=== PATIENT | male | born 1965 | race Caucasian/White ===

== ENCOUNTER 2019-11-19 09:59 | Outpatient (CLI) | payer BC, SELFPAY | END 2019-11-19 10:00 | disposition home or self-care (01) | LOC: CHSCARD 10:04 | PROVIDERS: PCP Physician Assistant; Visit Provider Physician Assistant | DX: R06.02 Shortness of breath (principal) | CPT/HCPCS: 94060; 94726; 94729 ==

== ENCOUNTER 2019-12-17 08:56 | Emergency (ER) | payer OTHER, BC, SELFPAY ==
--- NOTE | ~2019-12-17 | XR_ITS ---
XR finger 2nd LT min 2V DATE: 12/17/2019 09:14 INDICATION: Smash injury, laceration TECHNIQUE: 4 views COMPARISON: None FINDINGS: There is soft tissue swelling of the distal aspect of the second digit. No recent fracture or dislocation is evident. A triangular up to approximately 1.5 x 1.7 mm corticated ossicle is noted at the anterior base of the distal phalanx, possibly an old ununited anterior cortical avulsion fracture or less likely degenera tive ossicles. This is not likely recent due to the linear corticated margins. 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 There is osteoarthritis at the third metacarpophalangeal joint and to a minimal extent the second met acarpophalangeal joint. 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 IMPRESSION: Distal second digit soft tissue swelling Probable chronic ununited small avulsion fracture at the anterior base of the d istal phalanx
[2019-12-17 09:08] VITALS: BP 168/77; PULSE 79; RESP 18; TEMP 36.5; O2SAT 98
[2019-12-17] MEDS: TETANUS/DIPHTHERIA TOXOIDS ADSORB 0.5 ML VIAL (*BKC) (09:27)
--- NOTE | 2019-12-17 10:30 | ED.UPPEXIN ---
HPI - Extremity Injury (Upper) General Chief Complaint: Extremity Injury, Upper Stated Complaint: finger injury Time Seen by Provider: 12/17/19 09:07 Source: patient Mode of arrival: ambulatory Limitations: no limitations History of Present Illness HPI narrative: Patient presents with chief complaint of injury to the distal aspect of second left digit. Patient states that he got it caught between a trench box and a pipe while working. Patient denies loss of range of motion or sensation to the digit. Patient denies any other areas of injury. Patient states he has not had a tetanus injection within the last 5 years. Related Data Home Medications Medication Instructions Recorded Confirmed budesonide-formoterol [Symbicort] INHALATION 12/17/19 bupropion HCl mg PO 12/17/19 Allergies Allergy/AdvReac Type Severity Reaction Status Date / Time No Known Allergies Allergy Verified 12/17/19 09:06 Review of Systems Review of Systems: Narrative: CONSTITUTIONAL: Denies fever, chills, or sweats. EYES: Denies visual changes, redness, or discharge. ENT: Denies rhinorrhea, congestion, sore throat, or otalgia. CARDIOVASCULAR: Denies chest pain, palpitations, or edema. RESPIRATORY: Denies cough or dyspnea. GASTROINTESTINAL: Denies abdominal pain, nausea, vomiting, or diarrhea. GENITOURINARY: Denies dysuria or hematuria. SKIN: Reports swelling and laceration denies rash or itching. MUSCULOSKELETAL: Denies back pain, joint pain, or myalgia. NEUROLOGIC: Denies headache, numbness, dizziness, or weakness. PSYCHIATRIC: Denies anxiety or depression. [facility] Past Medical History Medical History (Updated 12/17/19 @ 10:41 by Dimitry Byrd PA-C) COPD (chronic obstructive pulmonary disease) Social History Social History (Updated 12/17/19 @ 10:34 by Dimitry Byrd PA-C) Smoking status: Current every day smoker Substance use: never Gender identity (if verbalized by the patient): Male Exam Narrative: Exam Narrative: GENERAL: Well-appearing, well-nourished, and in no acute distress. HEAD: Normocephalic, atraumatic. EYES: PERRLA and EOMI. ENT: Nares clear, no rhinorrhea or epistaxis. Mucous membranes moist. Oropharynx without tonsillar hypertrophy exudate or other lesions. NECK: Supple. No adenopathy or masses. Range of motion intact. No outward signs of injury. CHEST: Clear to auscultation. No respiratory distress. No wheezes rales or rhonchi HEART: Regular rate and rhythm. No murmur heard. Normal peripheral pulses. EXTREMITIES: Injury noted to second left digit. Flexion and extension intact to PIP and DIP of second left digit. See skin. SKIN: Approximately 5.5 cm laceration noted to the distal aspect of left second digit. Significant swelling noted. Bleeding is minimal. No apparent foreign bodies. Nailbed intact. Warm, dry, no rash. NEURO: No focal deficits. Alert and oriented x3. PSYCH: Normal mood and affect. Course Vital Signs Vital signs: Vital Signs Temperature 97.7 F 12/17/19 09:08 Pulse Rate 79 12/17/19 09:08 Respiratory Rate 18 12/17/19 09:08 Blood Pressure 168/77 H 12/17/19 09:08 Pulse Oximetry 98 12/17/19 09:08 Temperature 97.7 F 12/17/19 09:08 Pulse Rate 79 12/17/19 09:08 Respiratory Rate 18 12/17/19 09:08 Blood Pressure 168/77 H 12/17/19 09:08 Pulse Oximetry 98 12/17/19 09:08 Procedures Laceration Laceration 1: Site: hand (Second digit) Side (If applicable): left Size (cm): 5.5 Description: irregular Depth: simple, single layer Local Anesthetic: lidocaine 1% Amount of anesthesia used (mL): 1.5 Pre-repair: irrigated extensively and other (Cleansed with Betadine) ====== Skin Level ====== Skin layer closed with: prolene Size (cm): 5-0 Number of sutures: 7 Technique: simple, interrupted ====== Subcutaneous Layer ====== ====== Muscle Layer ====== ====== Tendon La
== END 2019-12-17 11:17 | disposition home or self-care (01) ==
PROVIDERS: Emergency Provider Emergency Medicine; PCP Physician Assistant
DX: S61.211A Laceration without foreign body of left index finger without damage to nail, initial encounter (principal); J44.9 Chronic obstructive pulmonary disease, unspecified; F17.200 Nicotine dependence, unspecified, uncomplicated; Z23 Encounter for immunization
CPT/HCPCS: 12002; 29130; 73140; 90471; 90714; 99283

== ENCOUNTER 2020-04-06 10:14 | Emergency (ER) | payer BC, SELFPAY ==
--- NOTE | ~2020-04-06 | CT_ITS ---
EXAMINATION: CT brain wo con DATE: 04/06/2020 10:41 INDICATION: Altered speech and left hand numbness. TECHNIQUE: Computed tomography (CT) of the head was performed without intravenous contrast. Sagittal and coronal reconstructions were performed. The mA was adjusted according to patient size. Iterative reconstruction technique was employed. The dose-length product was 605.33 mGy-cm. COMPARISON: None FINDINGS: Moderate sized region of decreased attenuation with loss of bianchi-white matter differentiation in the right parieto-occipital region consistent with cytotoxic edema related to acute infarct. No acute int racranial hemorrhage or abnormal extra axial fluid collection. Ventricles are normal and symmetric. N o mass/mass effect. The orbits, paranasal sinuses and mastoid air cells are normal. IMPRESSION: 1. Moderate size region of cytotoxic edema in the right parieto-occipital region consistent with acut e infarct. Dr. Dc discussed these findings with Dr. Perez at 10:42 AM. Reviewed, dictated and finalized at location A. IMPRESSION: 1. Moderate size region of cytotoxic edema in the right parieto-occipital regio n consistent with acute infarct. Dr. Dc discussed these findings with Dr. Perez at 10:42 AM.
--- NOTE | ~2020-04-06 | XR_ITS ---
EXAMINATION: XR chest 1V portable 04/06/2020 10:48 INDICATION: Altered mental status PROCEDURE: AP portable chest COMPARISON: No prior studies for comparison. FINDINGS: The lungs are clear. The cardiomediastinal silhouette is within normal limits. There are no pleural effusions. There is no pneumothorax suspected. IMPRESSION: 1: NO ACUTE CARDIOPULMONARY DISEASE. Reviewed, dictated and finalized at location A.
[2020-04-06 10:15] VITALS: BP 142/87; PULSE 68; RESP 18; TEMP 36.1; O2SAT 95
--- NOTE | 2020-04-06 10:19 | ED.AMS ---
HPI - Altered Mental Status General Chief Complaint: Altered Mental Status Stated Complaint: confusion Time Seen by Provider: 04/06/20 10:19 Source: patient and other ( co-worker) Mode of arrival: wheelchair Limitations: altered mental status History of Present Illness HPI narrative: 55-year-old man brought into the emergency department today by his coworkers because of confusion and not looking well. His stated that when he got to work this morning he was in his usual jovial self and proceeded with work as usual. Shortly before arrival he walked over to his truck got in an order to rest for movement and when he got out of the truck he was abnormal. Patient states that for the last 2 days he has been having feeling of coworkers around him that worked really there. He also had similar abnormal sensation yesterday at lunch when he could remember which co-workers he went to lunch with.He denies headache nausea, vomiting, recent head injury, or prior similar symptoms. Here in the emergency department the patient looked at his left hand and stated it's like it is not even there. MD complaint: altered mental status Time: 09:40 Timing confirmed by: other (Co-worker) Severity: moderate Associated symptoms: difficulty walking Related Data Home Medications Medication Instructions Recorded Confirmed budesonide-formoterol [Symbicort] INHALATION 12/17/19 bupropion HCl mg PO 12/17/19 Allergies Allergy/AdvReac Type Severity Reaction Status Date / Time No Known Allergies Allergy Verified 12/17/19 09:06 Review of Systems Constitutional: Constitutional: Denies chills and Denies fever(s) Eyes: Eyes: Denies change in vision and Denies photophobia ENT: Denies dysphagia, Denies nasal congestion and Denies sore throat Cardiovascular: Cardiovascular: Denies chest pain and Denies radiating jaw, neck or arm pain Respiratory: Respiratory: Denies no additional respiratory complaints, Denies cough, Denies dyspnea and Denies wheezing Gastrointestinal: Gastrointestinal: Denies vomiting Musculoskeletal: Musculoskeletal: Denies arthralgias and Denies joint swelling Integumentary/Breasts: Skin/Breast: Denies pruritus, Denies erythema and Denies rash Neurologic: Denies vertigo, Reports dizziness and Denies syncope Endocrine: Endocrine: Denies polydipsia and Denies polyuria Hematologic/Lymphatic: Hematologic/Lymphatic: Denies easy bleeding and Denies easy bruising PMFSH Past Medical History Medical History (Updated 04/06/20 @ 11:30 by Chavo Perez MD) COPD (chronic obstructive pulmonary disease) Social History Social History Smoking status: Current every day smoker Alcohol intake: never Substance use: former Other substance usage details: Currently uses suboxone Living arrangements: with family Gender identity (if verbalized by the patient): Male Exam Const: General: healthy appearing, alert and confusion Other: Mild acute distress HENMT: Head: normal to inspection Ears: external ears normal, TM's normal bilaterally and EAC's normal Mouth: Yes moist mucous membranes Throat: posterior oropharynx normal Eyes: Conjunctivae: conjunctivae normal Pupils: Equal, round and reactive pupils present EOM: EOMs intact bilaterally Neck: Neck: normal visual inspection Resp: Effort & Inspection: not labored Auscultation: clear to auscultation bilaterally, no rales, no rhonchi and no wheezes Cardio: Rate: regular rate Rhythm: regular rhythm GI: Inspection: non-distended GI Palp: Yes Soft to palpation, No Tenderness to palpation present (GI), No Guarding due to palpation present (GI) and No Rigid due to palpation Skin: General skin exam: pallor Other: diaphoretic Neuro: General: moves all extremities, no focal motor deficits and CN's II-XI intact bilaterally Speech: Abnormal speech present slurred (mildly) Other: Knows birthday, not date or day Extr
--- NOTE | 2020-04-06 10:27 | ECG_ITS ---
Measurements Intervals [place] Rate: 68 P: 74 UT: 194 QRS: 85 QRSD: 107 T: 47 QT: 389 QTc: 415 Interpretive Statements SINUS RHYTHM DELAYED PRECORDIAL R/S TRANSITION BORDERLINE ECG Electronically Signed On 04-06-2020 11:11:19 CDT by Axel Fields D.O.
[2020-04-06] MEDS: SODIUM CHLORIDE 0.9% IV 1,000 ML 100 ML IV CONT (10:51)
[2020-04-06 10:55] LABS: Basophils Absolute Auto 0.05 K/mm3 (0.00-0.10); Basophils Percent Auto 0.4 % (0.0-1.0); Eosinophils Absolute Auto 0.13 K/mm3 (0.02-0.50); Eosinophils Percent Auto 1.1 % (1.0-6.0); Hematocrit 43.7 % (40.0-54.0); Hemoglobin 14.5 g/dL (14.0-18.0); Immature Granulocyte Absolute 0.07 K/mm3 (0.00-0.00); Immature Granulocyte Percent A 0.6 % (0.0-0.0); Lymphocytes Absolute Auto 3.03 K/mm3 (1.10-4.50); Lymphocytes Percent Auto 25.4 % (18.0-42.0); Mean Corpuscular HGB Conc 33.2 g/dL (32.0-36.0); Mean Corpuscular Hemoglobin 32.2 pg (27.0-31.0); Mean Corpuscular Volume 96.9 fL (78.0-102.0); Mean Platelet Volume 8.7 fl (8.7-11.0); Monocytes Absolute Auto 0.82 K/mm3 (0.10-0.90); Monocytes Percent Auto 6.9 % (2.0-11.0); Neutrophils Absolute Auto 7.9 K/mm3 (1.7-7.2); Neutrophils Percent Auto 65.6 % (50.0-70.0); Platelet Count Result 267 K/mm3 (150-420); Red Blood Count 4.51 M/mm3 (4.70-6.10); Red Cell Distribution Width 13.9 % (11.6-14.4)
[2020-04-06 10:57] LABS: HCO3 ABG 25.8 mmol/L (23-29); Oxygen Content ABG 19.3 %vol (16.0-22.0); Oxygen Saturation ABG 97.8 % (95-97); Oxyhemoglobin 89.8 % (94-100); PCO2 ABG 62.5 mmHg (35-45); PO2 ABG 119.2 mmHg (80-90); Total Hemoglobin 15.2 g/dL; pH ABG 7.23 (7.35-7.45)
[2020-04-06 10:58] LABS: Device NASAL CANNULA; Modified Allen's Test Pass; Site Drawn RIGHT RADIAL
[2020-04-06 10:59] LABS: INR 0.9; Partial Thromboplastin Time 24.8 SEC (22.3-31.6); Prothrombin Time 9.8 Seconds (9.64-11.0)
[2020-04-06 11:00] VITALS: BP 182/104
--- NOTE | 2020-04-06 11:00 | PC.NURSE ---
PT REPORTS T[facility] CONCERN[facility] STAT TRANSFER
[2020-04-06 11:02] LABS: D Dimer 0.48 mg/L (0.19-0.50)
[2020-04-06 11:17] LABS: Acetaminophen 0 ug/mL (10-30); Alanine Aminotransferase 20 U/L (16-63); Albumin Level 3.9 g/dL (3.4-5.0); Alkaline Phosphatase 69 U/L (46-116); Ammonia 26 umol/L (11-32); Aspartate Amino Transferase 19 U/L (15-37); Bilirubin,Total 0.2 mg/dL (0.00-1.00); Blood Urea Nitrogen 15 mg/dL (7-18); Calcium 9.3 mg/dL (8.5-10.1); Carbon Dioxide 32 mmol/L (21-32); Chloride 97 mmol/L (98-108); Creatine Kinase 106 U/L (39-308); Estimated CRCL calculation 77 ml/min; Estimated Glomerular Filt Rate > 60; Ethanol < 3 mg/dL (0-6); Glucose 122 mg/dL (70-99); Lactic Acid Reflex 1.2 mmol/L (0.4-2.0); Osmolality Calculated 279 mOsm/kg (285-295); Salicylate 4.4 mg/dL (2.8-20.0); Sodium 134 mmol/L (136-145); Total Protein 7.8 g/dL (6.4-8.2); Troponin I < 0.02 ng/mL (0.00-0.056)
[2020-04-06] MEDS: LABETALOL HCL INJ 100 MG/20 ML VIAL (11:23)
--- NOTE | 2020-04-06 11:23 | PC.NURSE ---
LABETOLOL 10 MG GIVEN VORB IVP RIGHT HAND
[2020-04-06 11:30] VITALS: BP 182/96; PULSE 98; O2SAT 100
[2020-04-07 00:13] LABS: Glucose Point of Care 109 (65-105)
== END 2020-04-06 11:30 | disposition short-term general hospital (02) ==
PROVIDERS: Emergency Provider Emergency Medicine; PCP Physician Assistant
DX: I63.9 Cerebral infarction, unspecified (principal); E87.2 Acidosis
CPT/HCPCS: 36415; 36600; 70450; 71045; 80053; 80307; 82140; 82550; 82805; 83605; 84443; 84484; 85025; 85380; 85610; 85730; 87040; 93005; 96361; 96374; 99285; J7030

== ENCOUNTER 2020-05-19 08:49 | Outpatient (RCR) | payer BC, SELFPAY ==
--- NOTE | 2020-05-19 09:47 | OTOPEVAL ---
Thank you for referring Shaquille Perez to [facility].? The patient is scheduled to be seen for therapy? ____x/week for ___ weeks. Please review, sign, date and return this plan of care PARTH. I agree with and certify that the following plan of care is medically necessary. Referring Physician Date Admitting Provider: Attending Provider: PHYSICIAN NOT ON STAFF Referring Provider: *OT Outpatient Evaluation Start: 05/19/20 09:10 Freq: Status: Active Protocol: Document 05/19/20 09:10 [facility] (Rec: 05/19/20 09:46 [facility] [place] [id number] Therapy Assessment Status Assessment Status Assessment Status Evaluation Outpatient Past Medical History Respiratory History Hx Chronic Obstructive Pulmonary Disease Yes (COPD) Psychosocial History Hx Anxiety Yes Evaluation Information Problem Diagnosis CVA Onset 04/06/20 Subjective Information Patient had a stroke on 04/06/20 Query Text:As Reported By Patient/ where he spent ~1 week in ICU [facility] for a couple days and then returned home. He has been home for ~1 month. He reports things have been getting better. Patient reports some concerns with his balance. Patient also reports that he has lost 30 lbs and was having a difficult with eating but seems to be doing better. Patient reports independence with all self care tasks as well as IADLS. Patient expresses some emotional concerns as well. Patient's significant other is present for evaluation. 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
== END 2020-05-19 15:14 | disposition home or self-care (01) ==
LOC: CHSOT 08:49
PROVIDERS: PCP Physician Assistant
DX: Z86.73 Personal history of transient ischemic attack (TIA), and cerebral infarction without residual deficits (principal); R53.83 Other fatigue
CPT/HCPCS: 97165

== ENCOUNTER 2020-05-25 15:53 | Outpatient (RCR) | payer BC, SELFPAY ==
--- NOTE | 2021-03-10 08:19 | PTOPEVAL ---
Thank you for referring Shaquille Perez to [facility] [place]Note 2[place]? The patient is scheduled to be seen for therapy? ____x/week for ___ weeks. Please review, sign, date and return this plan of care PARTH. I agree with and certify that the following plan of care is medically necessary. Referring Physician Date Admitting Provider: Attending Provider: Purnima Valle, SHUN Referring Provider: *PT Outpatient Evaluation Start: 05/25/20 16:06 Freq: Status: Discharge Protocol: Document 05/25/20 16:05 [facility] (Rec: 05/25/20 16:50 [facility] [id number]) Therapy Assessment Status Assessment Status Assessment Status Evaluation Outpatient Past Medical History Respiratory History Hx Chronic Obstructive Pulmonary Disease Yes (COPD) Psychosocial History Hx Anxiety Yes Evaluation Information Problem Diagnosis s/p CVA Onset 04/06/20 Subjective Information patient reports he had a Query Text:As Reported By Patient/ stroke on 04/06/20. he reports Family he was initially sent to [facility] for rehab, but upon examination, he was reffered to PT due to greater deficits with balance and standing activities. 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 he reports he is not driving yet. he reports he notices the greatest deficits with his mental portion of his rehab. he reports no falls, no ad, independent with ADL's at home . Prior Level of Function Comments Additional Prior Level of Function independent with ADL's, Comments driving, work, and rec activities. Pain Assessment Timing of Pain Assessment Timing of Pain Assessment Assessment Self Report Self Report Pain Level 0 Pain Score Pain Score 0: Self Report Lower Extremity Range of Motion General Lower Extremity Range of Motion Gross Lower Extremity Range of Motion 5/5 bilateral LE strength Comments Balance Assessment Tinetti Balance Assessment Sitting Balance Steady, safe Ability to Arise Able, w/o using arms Attempts to Arise Arises on 1st attempt Immediate Standing Balance Steady w/o support Standing Balance Narrow stance w/o support Nudged Response Steady Standing with Eyes Closed
== END 2020-05-25 16:00 | disposition home or self-care (01) ==
LOC: CHSPT 15:53
PROVIDERS: PCP Physician Assistant; Visit Provider Physician Assistant
DX: R53.1 Weakness (principal); I63.9 Cerebral infarction, unspecified
CPT/HCPCS: 97161; 97530

== ENCOUNTER 2025-05-11 16:44 | Emergency (ER) | payer MEDICARE, SELFPAY ==
[2025-05-11] VITALS (42 sets, daily range): BP systolic 89–129; BP diastolic 39–91; PULSE 85–114; RESP 12–30; TEMP 36.8–37.3; O2SAT 82–98
--- NOTE | ~2025-05-11 | XR_ITS ---
CHEST RADIOGRAPH CLINICAL HISTORY: SHORTNESS OF BREATH . COMPARISON: 04/06/2020 TECHNIQUE: Single portable view of the chest. FINDINGS The left upper lateral lung is partially obscured due to pacemaker generator. Wires project over the right atrium and right ventricle. The remainder of the cardiomediastinal silhouette is otherwise unremarkable. Increased interstitial markings are identified bilaterally, findings suggesting mild pulmonary vascul ar congestion. The remainder of the lungs are otherwise clear. IMPRESSION: Mild pulmonary vascular congestion, without focal infiltrate or effusion. Reviewed, dictated and finalized at location A.
--- NOTE | 2025-05-11 16:47 | ED_ITS ---
HPI - Abdominal Pain General Chief Complaint: Weakness Stated Complaint: blurred vision & abdominal pain Time Seen by Provider: 05/11/25 16:46 Source: patient and EMS Mode of arrival: EMS Limitations: no limitations History of Present Illness HPI narrative: 60 YEARS OLD WHITE MALE CAME TO THE ED BY AMBULANCE FROM HOME COMPLAINING OF GENERALLY WEAK, POOR P.O. INTAKE BECAUSE HAVING NO APPETITE FOR THE LAST 2-3 WEEKS. PATIENT DENIES ANY FEVER, CHILLS, NAUSEA, VOMITING, ABDOMINAL PAIN, CHEST PAIN OR BACK PAIN. PATIENT REPORTS SHORTNESS OF BREATH ON EXERTION FOR A WHILE. PATIENT IS NOT TAKING HIS MEDICATION FOR THE LAST FEW DAYS. HISTORY HYPERTENSION, HYPERLIPIDEMIA, COPD, CVA WITHOUT RESIDUAL COMPLICATION, PACEMAKER, CHRONIC COUGH BECAUSE OF SMOKING, CHRONIC SWELLING OF THE LOWER EXTREMITY FOR YEARS WITHOUT SPECIFIC DIAGNOSIS. PATIENT MAIN COMPLAINT AT THIS TIME IS WORRY ABOUT DYING. Related Data Home Medications ?Medication ?Instructions ?Recorded ?Confirmed ?Last Taken ?Type budesonide-formoterol HFA 80 1 puff inhalation DAILY 12/17/19 04/06/20 Unknown History mcg-4.5 mcg/actuation aerosol inhaler (Symbicort) bupropion HCl 150 mg 24 hr tablet, 150 mg PO DAILY 12/17/19 04/06/20 Unknown History extended release Allergies Allergy/AdvReac Type Severity Reaction Status Date / Time No Known Allergies Allergy Verified 05/11/25 16:52 Review of Systems 2 Review of Systems: All systems reviewed & are unremarkable except as noted in HPI and below PMFSH Past Medical History Medical History COPD (chronic obstructive pulmonary disease) Social History Social History Smoking status: Current every day smoker Alcohol intake: never Substance use: former Other substance usage details: Currently uses suboxone Living arrangements: with family Gender identity (if verbalized by the patient): Male Exam 2 Narrative: GENERAL APPEARANCE: WELL-DEVELOPED, WELL-NOURISHED SKIN: PALE, GRAYISH COLORATION, 2+ EDEMA LOWER EXTREMITY BILATERALLY HEAD: NORMOCEPHALIC, NONTRAUMATIC EYES: CLEAR CONJUNCTIVA ENT: OROPHARYNX NORMAL, EARS NORMAL, NOSE NORMAL NECK: SUPPLE, NONTENDER CHEST AND RESPIRATORY: AIRWAY PATENT, NO RESPIRATORY DISTRESS, NO ACCESSORY MUSCLE USE HEART: REGULAR RATE/RHYTHM ABDOMEN: SOFT, NONTENDER, NO ORGANOMEGALY, QUIET BOWEL SOUNDS VASCULAR: NORMAL PERIPHERAL PULSES, NORMAL CAPILLARY REFILL. MUSCULOSKELETAL: NORMAL RANGE OF MOTION, NONTENDER BACK NEUROLOGIC: ALERT AND ORIENTED ?3, LEAD BURNER HELPER IS NORMAL TESTED, NO GROSS MOTOR DEFICIT Course Consultations Consultation #1: DR BARCENAS, RN WOUND CARE AT [facility] WHO RECOMMENDS TO TRANSFERRED THE PATIENT TO [facility] BECAUSE OF THE LACK OF ONCOLOGY AT HIS FACILITY Date: 05/11/25 Time: 18:58 Consultation #2: DR MOSER, ONCOLOGIST AT [facility] WHO ACCEPTED PATIENT TRANSFER RECOMMEND TO HOLD OFF BLOOD TRANSFUSION AT THIS TIME. Date: 05/11/25 Vital Signs Vital signs: Vital Signs Temperature 37.3 C 05/11/25 16:44 Pulse Rate 114 H 05/11/25 16:44 Respiratory Rate 18 05/11/25 16:44 Blood Pressure 129/74 05/11/25 16:44 Pulse Oximetry 90 05/11/25 16:44 Oxygen Delivery Room Air 05/11/25 16:44 Temperature 36.8 C 05/11/25 17:45 Pulse Rate 91 05/11/25 19:42 Respiratory Rate 16 05/11/25 19:42 Blood Pressure 108/62 05/11/25 19:42 Pulse Oximetry 97 05/11/25 19:42 Oxygen Delivery Nasal Cannula 05/11/25 18:01 Oxygen Flow Rate 4 05/11/25 19:42 MDM - Abdominal Pain MDM Narrative Medical decision making narrative: PATIENT CAME WITH GENERAL WEAKNESS AND POOR APPETITE VITAL SIGNS SHOWING HEART RATE OF 102, OXYGENATION ON ROOM AIR 82% OTHERWISE WITHIN NORMAL LIMIT PHYSICAL EXAMINATION SHOWING SEVERELY ILL PATIENT, PALE, GRAYISH SKIN, 2+ EDEMA LOWER EXTREMITY BILATERALLY, INTERMITTENT COUGHING WHICH IS CHRONIC DIFFERENTIAL DIAGNOSIS INCLUDE DEHYDRATION, ELECTROLYTE IMBALANCE, CONGESTIVE HEART FAILURE, PNEUMONIA, ANEMIA, URINARY TRACT INFECTION BLOOD WORKUP TODAY INCLUDES CBC, CMP, TROPONIN, PRO BNP, LIPASE AND COAGS SHOWED WBC 368.6, RBCS 1.35, HEMOGLOBIN 4.7, HEMATOCRIT 14.7, MCV 108.9, PLATELET COUNT 105, PT 15.8, SODIUM 133, POTASSIUM 3.0, TOTAL BILIRUBIN 1.9, AST 218, ALKALINE PHOSPHATASE 138 ABG ON ROOM AIR SHOWING PH 7.55, PO2 31.4, O2 SATURATION 69.3 CHEST X-RAY SHOWED MILD PULMONARY VASCULAR CONGESTION WITHOUT FOCAL INFILTRATE OR EFFUSION EKG ON ARRIVAL SHOWED SINUS TACHYCARDIA AT 107 BEATS PER MINUTE, ST T-WAVE ABNORMALITY, NO PREVIOUS EKG FOR COMPARISON DIAGNOSIS ACUTE HYPOXIC RESPIRATORY FAILURE, ACUTE LEUKEMIA, THROMBOCYTOPENIA, ANEMIA TRANSFERRED TO [facility] Differential Diagnosis Differential diagnosis: Likely other ( ABOVE) Medical Records Attestation: I reviewed the patient's medical records. Lab Data Attestation: I reviewed the patient's lab results. 05/11/25 17:21 05/11/25 17:21 Labs: Lab Results 05/11/25 05/11/25 05/11/25 Range/Units 17:10 17:12 17:21 WBC 368.6 H* (4.8-10.8) K/mm3 RBC 1.35 L (4.70-6.10) M/mm3 Hgb 4.7 L* (14.0-18.0) g/dL Hct 14.7 L* (40.0-54.0) % MCV 108.9 H (78.0-102.0) fL MCH 34.8 H (27.0-31.0) pg MCHC 32.0 (32-36) g/dL RDW 21.7 H (11.6-14.4) % Plt Count 105 L (150-420) K/mm3 MPV 12.2 H (8.7-11.0) fl Immature Gran % (Auto) Not Reportable Neut % (Auto) Not Reportable Lymph % (Auto) Not Reportable [place] % (Auto) Not Reportable Eos % (Auto) Not Reportable Baso % (Auto) Not Reportable Lymph # (Auto) Not Reportable [place] # (Auto) Not Reportable Eos # (Auto) Not Reportable Baso # (Auto) Not Reportable Abs Immat Gran (auto) Not Reportable Absolute Neuts (auto) Not Reportable Absolute Nucleated RBC Not Reportable Total Counted 100 Neutrophils % (Manual) 6 L (46-73) % Band Neutrophils % 0 (0-6) % Lymphocytes % (Manual) 8 L (18-44) % Monocytes % (Manual) 84 H (3-9) % Basophils % (Manual) 2 H (0-1) % Nucleated RBC % Not Reportable Abs Neuts (Manual) 22.11 H (1.3-6.7) K/mm3 Abs Lymphs (Manual) 29.48 H (1.1-4.5) K/mm3 Abs Monocytes (Manual) 309.62 H (0.1-0.90) K/mm3 Abs Basophils (Manual) 7.37 H (0-0.1) K/mm3 Nucleated RBCs 7 % Platelet Estimate Slightly decreased (Adequate) Hypochromasia 3+ Anisocytosis 2+ Schistocytes None seen PT 15.8 H (9.50-12.1) Seconds INR 1.5 APTT 27.5 (23.9-30.70) Sec Sodium 133 L (137-145) mmol/L Potassium 3.0 L (3.4-5.0) mmol/L Chloride 97 L (98-107) mmol/L Carbon Dioxide 27 (22-30) mmol/L Anion Gap 9 (4-12) mmol/L BUN 13 (9-20) mg/dL Creatinine 1.06 (0.7-1.3) mg/dL Estim Creat Clear Calc Not Reportable Estimated GFR > 60 (59 - ) Glucose 157 H (65-110) mg/dL Calculated Osmolality 279 L (285-295) mOsm/kg Uric Acid 12.1 H (3.5-8.5) mg/dL Calcium 9.2 (8.4-10.2) mg/dL Phosphorus 1.9 L (2.5-4.5) mg/dL Total Bilirubin 1.9 H (0.2-1.3) mg/dL AST 218 H (17-59) U/L ALT 28 (6-50) U/L Alkaline Phosphatase 138 H (38-126) U/L Lactate Dehydrogenase Pending Troponin I 0.021 (0.000-0.034) ng/mL NT-Pro-B Natriuret Pep Pending Total Protein 6.6 (6.3-8.2) g/dL Albumin 3.8 (3.5-5.1) g/dL Lipase 49 (23-300) U/L Influenza A (RT-PCR) Influenza B (RT-PCR) RSV (RT-PCR) SARS-CoV-2 RNA (RT-PCR) Blood Type B Positive Antibody Screen Negative Crossmatch See Detail 05/11/25 Range/Units 20:38 WBC (4.8-10.8) K/mm3 RBC (4.70-6.10) M/mm3 Hgb (14.0-18.0) g/dL Hct (40.0-54.0) % MCV (78.0-102.0) fL MCH (27.0-31.0) pg MCHC (32-36) g/dL RDW (11.6-14.4) % Plt Count (150-420) K/mm3 MPV (8.7-11.0) fl Immature Gran % (Auto) Neut % (Auto) Lymph % (Auto) [place] % (Auto) Eos % (Auto) Baso % (Auto) Lymph # (Auto) [place] # (Auto) Eos # (Auto) Baso # (Auto) Abs Immat Gran (auto) Absolute Neuts (auto) Absolute Nucleated RBC Total Counted Neutrophils % (Manual) (46-73) % Band Neutrophils % (0-6) % Lymphocytes % (Manual) (18-44) % Monocytes % (Manual) (3-9) % Basophils % (Manual) (0-1) % Nucleated RBC % Abs Neuts (Manual) (1.3-6.7) K/mm3 Abs Lymphs (Manual) (1.1-4.5) K/mm3 Abs Monocytes (Manual) (0.1-0.90) K/mm3 Abs Basophils (Manual) (0-0.1) K/mm3 Nucleated RBCs % Platelet Estimate (Adequate) Hypochromasia Anisocytosis Schistocytes PT (9.50-12.1) Seconds INR APTT (23.9-30.70) Sec Sodium (137-145) mmol/L Potassium (3.4-5.0) mmol/L Chloride (98-107) mmol/L Carbon Dioxide (22-30) mmol/L Anion Gap (4-12) mmol/L BUN (9-20) mg/dL Creatinine (0.7-1.3) mg/dL Estim Creat Clear Calc Estimated GFR (59 - ) Glucose (65-110) mg/dL Calculated Osmolality (285-295) mOsm/kg Uric Acid (3.5-8.5) mg/dL Calcium (8.4-10.2) mg/dL Phosphorus (2.5-4.5) mg/dL Total Bilirubin (0.2-1.3) mg/dL AST (17-59) U/L ALT (6-50) U/L Alkaline Phosphatase (38-126) U/L Lactate Dehydrogenase Troponin I (0.000-0.034) ng/mL NT-Pro-B Natriuret Pep Total Protein (6.3-8.2) g/dL Albumin (3.5-5.1) g/dL Lipase (23-300) U/L Influenza A (RT-PCR) Pending Influenza B (RT-PCR) Pending RSV (RT-PCR) Pending SARS-CoV-2 RNA (RT-PCR) Pending Blood Type Antibody Screen Crossmatch ABG Data ABG results: 05/11/25 17:12 Puncture Site Left radial ABG pH 7.55 H ABG pCO2 29.5 L ABG pO2 31.4 L* ABG HCO3 25.3 ABG O2 Saturation 69.3 L ABG Base Excess 2.6 H Oxyhemoglobin 68.0 L O2 Delivery Device Room air O2 Liters/Min 0.0 Imaging Data Radiologist's impression: ITS Impressions Chest X-Ray 05/11/25 18:12 IMPRESSION: Mild pulmonary vascular congestion, without focal infiltrate or effusion. ECG Data EKG #1: Attestation: I personally reviewed and interpreted this ECG as follows: ECG completion date: 05/11/25 Interpretation: SINUS TACHYCARDIA AT 107 BEATS PER MINUTE, NONSPECIFIC ST T-WAVE ABNORMALITY, NO OLD EKG AVAILABLE FOR COMPARISON Critical Care Time Critical Care Time Critical Care Time: Yes Total Critical Care Time: 30 Discharge Plan Discharge Clinical Impression: Acute hypoxic respiratory failure, Leukemia, acute, Thrombocytopenia, Anemia Patient Disposition: Acute Care Hospital Condition: Critical Patient Language: Yakut Prescriptions: No Action budesonide-formoterol [Symbicort] 80-4.5 mcg/actuation HFA aerosol inhaler 1 puff INHALATION DAILY bupropion HCl 150 mg tablet extended release 24 hr 150 mg PO DAILY naproxen 500 mg tablet 500 mg PO BID PRN (Reason: pain) Qty: 20 0RF Follow-up/Referrals: UNKNOWN,DOCTOR [Non-Staff] -
--- OUTSIDE RECORDS SUMMARY | 2025-05-11 16:47 | XMS_ITS | Clinical Summary ---
Author Organization [facility] Address [address] [place] [address] Care Team Providers Care Dentistry Teacher Name Role Phone Purnima Valle Primary Care Provider [phone] Teodora Dukes MD Unavailable Mark Yoon MD Unavailable [phone] Paige Marr PA-C Unavailable [phone] Allergies Active Allergy Reactions Criticality Noted Date Comments Losartan Other (see comment) 05/04/2025 Pt states that Losartan makes him feel very ill. Medications budesonide-form oterol 160-4.5 MCG/ACT inhaler Inhale 2 puffs into the lungs 2 (two) times daily. Active albuterol sulfate HFA 108 (90 Base) MCG/ACT inhaler Inhale 2 puffs into the lungs every 6 (six) hours as needed for Wheezing. Active buprenorphine-n aloxone 8-[address] 1 Film under the tongue 3 (three) times daily. Active atorvastatin (LIPITOR) 40 MG tablet Take 1 tablet (40 mg total) by mouth nightly at bedtime. 3 Active busPIRone (BUSPAR) 10 MG tablet Take 1 tablet (10 mg total) by mouth daily. 3 Active clopidogrel (PLAVIX) 75 MG tablet Take 1 tablet (75 mg total) by mouth daily. 3 Active FLUoxetine (PROZAC) 40 MG capsule Take 1 capsule (40 mg total) by mouth daily. 3 Active traZODone (DESYREL) 100 MG tablet Take 1 tablet (100 mg total) by mouth nightly at bedtime. 3 Active ADVAIR HFA 230-21 MCG/ACT inhaler Inhale 2 puffs into the lungs 2 (two) times daily. 3 Active naloxone (NARCAN) 4 MG/0.1ML nasal spray 1 spray by Nasal route as needed. 3 Active ARIPiprazole (ABILIFY) 5 MG tablet Take 1 tablet (5 mg total) by mouth daily. Active tamsulosin (FLOMAX) 0.4 MG Cap Take 1 capsule (0.4 mg total) by mouth daily. Active amLODIPine (NORVASC) 10 MG tablet Take 1 tablet (10 mg total) by mouth daily. Active losartan (COZAAR) 50 MG tablet Take 1 tablet (50 mg total) by mouth daily. 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 Assessment & Plan (05/30/2023 9:09 AM CDT): LEFT 3rd finger excised on 05-09-2023 Chronotropic incompetence with sinus node dysfun ction 05/03/2021 Symptomatic bradycardia 05/03/2021 Seizure disorder ([facility]) 09/27/2020 History of embolic stroke 05/03/2020 Hyperlipidemia LDL goal <70 05/03/2020 Fatigue, unspecified type 05/03/2020 Acute embolic stroke ([facility]) 0 Resolved Problems Problem Noted Date Diagnosed Date Resolved Date Mass of finger of left hand 04/25/2023 05/30/2023 Overview (04/25/2023): Added automatically from request for surgery [id number] Encounters Date Type Department Care Team Description 03/29/2025 Telephone [facility] [address] [place] [address] Teodora Dukes MD Medication 03/18/2025 Telephone [facility] [address] [place] [address] Mark Yoon MD Information 03/17/2025 8:15 AM CDT Allied Health/Nurse Visit [facility] [place] [address] [place] [address] Mark Yoon MD In Clinic Device Check 03/17/2025 8:15 AM CDT Office Visit [facility] [address] [address] Mark Yoon MD Consult 03/17/2025 8:00 AM CDT - 03/17/2025 11:59 PM CDT Hospital Encounter [facility] the [facility] [place] [address] Mark Yoon MD Discharge Disposition: Home or Self Care (Routine Discharge) 03/17/2025 Travel 03/16/2025 Telephone [facility] [address] [place] [address] Mark Yoon MD Appointment Reminder 03/15/2025 Orders Only [facility] [place] [address] [place] [address] Mark Yoon MD from Last 3 Months Family History Medical History Relation Comments No Known Problems Brother No Known Problems Father No Known Problems Maternal Aunt No Known Problems Maternal Grandfather No Known Problems Maternal Grandmother No Known Problems Maternal Uncle Heart Attack Mother Heart Disease Mother No Known Problems Paternal Aunt No Known Problems Paternal Grandfather No Known Problems Paternal Grandmother No Known Problems Paternal Uncle No Known Problems Sister Relation Status Comments Brother Father Maternal Aunt Maternal Grandfather Maternal Grandmother Maternal Uncle Mother Paternal Aunt Paternal Grandfather Paternal Grandmother Paternal Uncle Sister Social History Tobacco Use Types Packs/Day Years Used Date Smoking Tobacco: Every Day Cigarettes Smokeless Tobacco: Never Tobacco Cessation:Ready to Q uit: Not Asked; Counseling Given: Not Answered Alcohol Use Standard Drinks/Week Comments Not Currently 0 (1 standard drink = 0.6 oz pur e alcohol) Humiliation, Afraid, Rape, and Kick questionnair e Answer Date Recorded Fear of Current or Ex-Partner No Emotionally Abused No 04/06/2020 Physically Abused No 04/06/2020 Sexually Abused No 04/06/2020 Social Connection and Isolat ion Panel [NHANES] Answer Date Recorded Frequency of Communication w ith Friends and Family More than three times a week 04/06/2020 Frequency of Social Gatherin gs with Friends and Family More than three times a week 04/06/2020 Attends Taoism Services Never 04/06 Active Member of Clubs or Organizations No 04/06/2020 Attends Club or Organization Meetings Never 04/06/2020 Marital Status 04/06/2020 AUDIT-C Answer Date Recorded Q1: How often do you have a drink containing alc ohol? Never 09/27/2020 Average Number of Drinks Not on file 020 Q3: How often do you have si x or more drinks on one occasion? Never 09/27/2020 Overall Financial Resource Strain (CARDIA) Answe r Date Recorded Difficulty of Paying Living Expenses Not hard at all 04/06/2020 PHQ-2 Answer Date Recorded PHQ-2 Score - If the patient scores above 3, please move on to questions 3-9 0 09/27/2020 [facility] of Occupat ional Health - Occupational Stress Questionnaire Answer Date Recorded Feeling of Stress Only a little 04/06/2020 Exercise Vital Sign Answer Date Recorde d Days of Exercise per Week 0 days 2019 Minutes of Exercise per Session 0 min 04/06/2020 Hunger Vital Sign Answer Date Recorded Worried About Running Out of Food in the Last Ye ar Never true 04/06/2020 Ran Out of Food in the Last Year Never true 04/06/2020 PRAPARE - Transportation Answer Date Re corded Lack of Transportation (Medical) No 04/06/2020 Lack of Transportation (Non-Medical) No 04/06/2020 Sex and Gender Information Value Date Recorded Sex Assigned at Male 04/06/2020 1:53 PM CDT Legal Sex Male 6:00 PM BLACKING WHEEL TENDER Gender Identity Male 04/06/2020 1:53 PM CDT Sexual Orientation Straight 04/06/2020 1: 53 PM CDT Last Filed Vital Signs Vital Sign Reading Time Taken Comments Blood Pressure 105/55 03/17/2025 8:39 AM CDT Pulse 72 03/17/2025 8:39 AM CDT Temperature 36.7 C (98.1 F) 05/09/2023 9:55 AM CDT Respiratory Rate 12 03/17/2025 8:39 AM CDT Oxygen Saturation 100% 03/17/2025 8:39 AM CDT Inhaled Oxygen Concentration - - Weight 95.3 kg (210 lb) 03/17/2025 8:39 AM CDT Height 180.3 cm (5' 11) 03/17/2025 8:39 AM CDT Body Mass Index 29.29 03/17/2025 8:39 AM CDT Plan of Treatment Upcoming Encounters Date Type Department Care Team (Late st Contact Info) Description 05/25/2025 2:30 AM CDT Allied Health/Nurse Visit [facility] [address] [place] [address] Mark Yoon MD [address] [place] [address] 07/07/2025 10:30 AM CDT Office Visit [facility] [place] [address] [place] [address] Teodora Dukes MD [address] [place] [address] 03/16/2026 9:00 AM CDT Office Visit [facility] [place] [address] [place] [address] Paige Marr PA-C [address] [place] [address] 03/16/2026 9:00 AM CDT Allied Health/Nurse Visit [facility] [place] [address] [place] [address] Mark Yoon MD [address] [place] [address] Health Maintenance Due Date Last Done Comments Colorectal Cancer Screening Colonoscopy (10 Years) 1967 Kidney Health Evaluation 1967 Annual Physical 1970 Diabetes: Retinopathy Eye Exam 1985 Hepatitis C 1985 DTaP, Tdap and Td Vaccines (1 - Tdap) 1986 Hepatitis B Vaccines (1 of 3 - 19+ 3-dose series) 1986 Pneumococcal Vaccine: 50+ Years (1 of 2 - PCV) 1986 Zoster Vaccines (1 of 2) 2017 Hemoglobin A1C 10/07/2020 04/06/2020 COVID-19 Vaccine ( - season) 2024 Lipid Panel 10/07/2024 10/07/2023, 04/07, 04/07/2020, Additional history exists Meningococcal B Vaccine Aged Out No l onger eligible based on patient's age to complete this topic Meningococcal Vaccine Aged Out No alton jonathan eligible based on patient's age to complete this topic RSV Immunizations Under 20 Months Aged Out No longer eligible based on patient's age to complete this topic Medical Devices Implanted Type Area Trimming Assembler Device Identifier Shelf Expiration Date Model / Serial / Lot Medtronic-Linq Ii Implantable Loop Recorder-2019 Implanted:Qty: 1 on 08/08/2020 by Mike Doherty MD Explanted:04/07 by Arpit Dooley MD (Quantity not on file) Implantable Loop Recorder Chest Wall [employer] 12/04/2021 [id number] / [id number] / Medtronic Capsurefix Novus Mri Ra Lead-05/03/2021 Implanted:04/07 by Arpit Dooley MD (Quantity not on file) Lead Implant [employer] CARDIAC RHYTHM AND HEART FAILURE - DIV M 02/13/2023 4076-52 / [id number] / Medtronic Capsurefix Novus Mri Rv Lead-05/03/2021 Implanted:04/07 by Arpit Dooley MD (Quantity not on file) Lead Implant [employer] CORONARY AND STRUCTURAL HEART - DIV MEDT 01/10/2023 4076-58 / [id number] / Medtronic Katie Xt Dr Mri Ppm-05/03/2021 Implanted:04/07 by Arpit Dooley MD (Quantity not on file) Pacemaker [employer] CARDIAC RHYTHM AND HEART FAILURE - DIV M 10/03/2022 [id number] / [id number] / Description:MRI Conditional under following conditions: Static magnetic field of 1.5 T or 3 T, Max spatial gradient field of 2000 Gauss/cm or less, Max slew rate 200 T/m/s or less, 1.5 T Whole body BOB of 2 W/kg or less , Head BOB 3.2 W/kg or less in Normal Operating Mode : 3 T B1+YOEL must be 2.8 mT or less for landmarks below C7, No B1+YOEL restriction on 3T if landmark is at or above C7 Procedures Procedure Name Priority Date/Time Associated Diagnosis Comments ECG 12-LEAD Routine 03/17/2025 8:17 AM CDT History of embolic stroke Chronic heart failure, unspecified heart failure type (CMS/HCC HHS/HCC) LIPID PANEL Routine 10/07/2023 7:06 AM BLACKING WHEEL TENDER Fatigue Hyperlipidemia HEMOGLOBIN, GLYCOSYLATED Routine 04/06/2020 1:30 PM CDT from Last 3 Months or Most Recently Relevant to Health Maintenance Results * ECG 12 lead (HOSPITAL PERFORMED ONLY) (03/17/2025 8:17 AM CDT) 03/17/2025 8:17 AM CDT Narrative [facility] - 03/18/2025 6:02 AM CDT [address] [place] [address] Test Date: 2025-03-17 Pat Name: TAMMY PEREZ Department: 3 Room: Gender: Male Zipper Cutter: : 1965 Requested By: MARK YOON Order Number: [id number] Reading MD: Mark Yoon Measurements Intervals [place] Rate: 70 P: 65 [place]: 191 QRS: 48 QRSD: 98 T: 6 QT: 335 QTc: 361 Interpretive Statements SINUS RHYTHM NONSPECIFIC T-WAVE ABNORMALITY Procedure Note Mark Yoon MD - 03/18/[address] [place] [address] Test Date: 2025-03-17 Pat Name: TAMMY PEREZ Department: 3 Room: Gender: Male Zipper Cutter: : 1965 Requested By: MARK YOON Order Number: [id number] Reading MD: Mark Yoon Measurements Intervals [place] Rate: 70 P: 65 [place]: 191 QRS: 48 QRSD: 98 T: 6 QT: 335 QTc: 361 Interpretive Statements SINUS RHYTHM NONSPECIFIC T-WAVE ABNORMALITY Mark Yoon MD ECG ORDERABLES Final Res ult [facility] * (ABNORMAL) LIPID PANEL (10/07/2023 7:06 AM BLACKING WHEEL TENDER) CHOLESTEROL 143 MG/DL 10/07/2023 11:08 AM [facility] Comment:DESIRABLE: <200 TRIGLYCERIDES 160 MG/DL 10/07/2023 11:08 AM [facility] Comment:150-199 BORDERLINE H IGH HDL 36(L) >39 MG/DL 10/07/2023 11:08 AM BLACKING WHEEL TENDER [facility] LDL-C 75 MG/DL 10/07/2023 11:08 AM BLACKING WHEEL TENDER [facility] Comment:<100 OPTIMAL VLDL CALCULATION 32 MG/DL 10/07/19 11:08 AM [facility] Comment:REFERENCE RANGE NOT ESTABLISHED CHOL/HDL RATIO 4.0 10/07/2023 11:08 AM BLACKING WHEEL TENDER [facility] Comment:REFERENCE RANGE NOT ESTABLISHED LDL/HDL 2.1 10/07/2023 11:08 AM BLACKING WHEEL TENDER [facility] Comment:REFERENCE RANGE NOT ESTABLISHED NON HDL CHOLESTEROL 107 MG/DL 10/07/2023 11:08 AM BLACKING WHEEL TENDER [facility] Comment:REFERENCE RANGE NOT ESTABLISHED 10/07/2023 7:06 AM BLACKING WHEEL TENDER Mj Hughes MD LABORATORY Final Result Performing Organization Address [facility] Co de Phone Number [facility] [address] [place] [address], [place] [phone] [id number] * (ABNORMAL) HEMOGLOBIN, GLYCATED (04/06/2020 1:30 PM CDT) HGB A1C 5.9(H) <5.7 % 04/06/2020 9:46 PM CDT [facility] ESTIMATED AVG GLUCOSE 123(H) 74 - 114 MG/DL 04/06/2020 9:46 PM CDT [facility] 04/06/2020 1:30 PM CDT Marty Davey MD LABORATORY Final Result Performing Organization Address [facility] de Phone Number [facility] [address] [place] [address], [place] [phone] [id number] from Last 3 Months or Most Recently Relevant to Health Maintenance Insurance MEDICARE Advance Directives Documents on File Type Date Recorded Patient Solution Director Expl anation Advance Directives and Living Will 04/06/2020 6:20 AM SURROGATE DECISION MAKER 04/06/2020 * Full Code (Latest Code Status on File) Date Activated Date Inactivated Comments 05/03/2021 5:54 PM 05/04/2021 11:04 AM * Full Code Date Activated Date Inactivated Comments 04/06/2020 1:06 PM 04/11/2020 3:50 PM Care Teams Dentistry Teacher Relationship Specialty Start Date End Date Purnima Valle PA [address] [facility] [place] [address] PCP - General PHYSICIAN YARD RIGGER 04/24/23 Teodora Dukes MD [address] [place] [address] Johnson Cloth Bleaching Supervisor CARDIOVASCULAR DISEASE 12/02/24 Mark Yoon MD [address] [place] [address] Consulting Physician CLINICAL CARDIAC ELECTROPHYSIOLOGY 02/15/25 Paige Marr PA-C [address] [place] [address] Referring Physician PHYSICIAN YARD RIGGER 03/14/25
--- OUTSIDE RECORDS SUMMARY | 2025-05-11 16:48 | XMS_ITS | Encounter Summary ---
Author Organization [facility] Address [address] [place] [address] Care Team Providers Care Mold Filler And Drainer Name Role Phone Paula Chopra NP Primary Care Provider [phone] Mike Doherty MD Unavailable [phone] Shari Ennis NP Unavailable [phone] Purnima Valle Primary Care Provider [phone] Teodora Dukes MD Unavailable Mark Yoon MD Unavailable [phone] Paige Marr PA-C Unavailable + [phone] Encounter Details Date Type Department Care Team (Late st Contact Info) Description 05/04/2021 Hospital Follow-up Call [facility] [address] [place] [address] Chelle Candelaria RN Social History Tobacco Use Types Packs/Day Years Used Date Smoking Tobacco: Every Day Cigarettes Smokeless Tobacco: Never Alcohol Use Standard Drinks/Week Comments Not Currently [...] than three times a week 04/06/2020 Attends Shinto Services Never 04/06 Active Member of Clubs [...] move on to questions 3-9 0 09/27/2020 [facility] [place] of Occupat ional Health - Occupational Stress [...] PM CDT 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 No / Unsure 05/03/2021 2:27 PM CDT documented as of this encounter Functional Status * RETIRED Are you deaf or do you have serious difficulty hearing Answer Date of Assessment Author Status No 05/03/2021 6:03 PM CDT Activ e * RETIRED Are you blind or do you have serious difficulty seeing, even when wearing glasses? Answer Date of Assessment Author Status No 05/03/2021 6:03 PM CDT Activ e * Do you have serious difficulty walking or climbing stairs? Answer Date of Assessment Author Status No 05/03/2021 6:03 PM CDT Michell Powers R N Active * Do you have difficulty dressing or bathing? Answer Date of Assessment Author Status No 05/03/2021 6:03 PM CDT Michell Powers R N Active * Because of a physical, mental, or emotional condition, do you have difficulty doing errands alone such as visiting a doctor's office or shopping? Answer Date of Assessment Author Status No 05/03/2021 6:03 PM CDT Michell Powers R N Active documented as of this encounter Mental Status * Because of a physical, mental, or emotional condition, do you have serious difficulty concentrating, remembering, or making decisions? Answer Entry Date Author Status No 05/03/2021 6:03 PM CDT Michell Powers R N Active documented in this encounter Plan of Treatment Upcoming Encounters Date Type Department Care Team (Late st Contact Info) Description 05/25/2025 2:30 AM CDT Allied Health/Nurse Visit [facility] [address] [place] [address] Mark Yoon MD [address] [place] [address] 07/07/2025 10:30 AM CDT Office Visit [facility] [place] [address] [place] [address] Teodora Dukes MD [address] [place] [address] 03/16/2026 9:00 AM CDT Office Visit [facility] [place] [place] [place] [address] Paige Marr PA-C [address] [place] [address] 03/16/2026 9:00 AM CDT Allied Health/Nurse Visit [facility] [place] [address] Mark Yoon MD [address] [place], [place] [address] documented as of this encounter Visit Diagnoses Not on filedocumented in this encounter Care Teams Mold Filler And Drainer Relationship Specialty Start Date End Date Paula Chopra NP [address] [place] [address] PCP - General Nurse Practitioner Family 04/07/20 3 Purnima Valle PA [address] [place] [address] PCP - General PHYSICIAN HARVESTING CONTRACTOR 04/24/23 Mike Doherty MD [address] [facility] [address] [place] [address] Consulting Physician CARDIOVASCULAR DISEASE 05/09/2102/14 Shari Ennis NP [address] [facility] [address] [place] [address] Nurse Practitioner Nurse Practitioner Family 05/09/2102/04 Teodora Dukes MD [address] [place] [address] [place] Oven Heater CARDIOVASCULAR DISEASE 12/02/24 Mark Yoon MD [address] [place], [place] [address] Consulting Physician CLINICAL CARDIAC ELECTROPHYSIOLOGY 02/15/25 Paige Marr PA-C [address] [place] [address] Referring Physician PHYSICIAN HARVESTING CONTRACTOR 03/14/25 documented as of this encounter
--- OUTSIDE RECORDS SUMMARY | 2025-05-11 16:48 | XMS_ITS | Encounter Summary ---
Author Organization [facility] Address Formerly [facility], [address] [place] [address] Care Team Providers Care Account Executive Software Sales Name Role Phone Paula Chopra NP Primary Care Provider [phone] Mike Doherty MD Unavailable [phone] Shari Ennis NP Unavailable [phone] Purnima Valle Primary Care Provider [phone] Teodora Dukes MD Unavailable Mark Yoon MD Unavailable + [phone] Paige Marr PA-C Unavailable + [phone] Encounter Details Date Type Department Care Team (Late st Contact Info) Description 09/14/2020 90 Day Stroke Follow-up Call 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 Answer Date of Assessment Author Status No 04/06/2020 1:56 PM CDT Activ e * Do you have serious difficulty walking or climbing stairs? Answer Date of Assessment Author Status No 04/06/2020 1:56 PM CDT Donato, Amanda A, R N Active * Do you have difficulty dressing or bathing? Answer Date of Assessment Author Status No 04/06/2020 1:56 PM CDT Donato, Amanda A, R N Active * Because of a physical, mental, or emotional condition, do you have difficulty doing errands alone such as visiting a doctor's office or shopping? Answer Date of Assessment Author Status No 04/06/2020 1:56 PM CDT Donato, Amanda A, R N Active documented as of this encounter Mental Status * Because of a physical, mental, or emotional condition, do you have serious difficulty concentrating, remembering, or making decisions? Answer Entry Date Author Status No 04/06/2020 1:56 PM CDT Amanda Donato R N Active documented in this encounter Plan of Treatment Upcoming Encounters Date Type Department Care Team (Late st Contact Info) Description 05/25/2025 2:30 AM CDT Allied Health/Nurse Visit [facility] [address] [place] [address] Mark Yoon MD [address] [place] [address] 07/07/2025 10:30 AM CDT Office Visit [facility] [place] [address] [place] [address] Teodora Dukes MD [address] [place] [address] 03/16/2026 9:00 AM CDT Office Visit [place] [address] [place] [address] Paige Marr PA-C [address] [place] [address] 03/16/2026 9:00 AM CDT Allied Health/Nurse Visit [place] [address] [place] [address] Mark Yoon MD [address] [place] [address] documented as of this encounter Visit Diagnoses Not on filedocumented in this encounter Additional Health Concerns Infection Onset Date Last Indicated Resolved Time COVID-19 Rule Out 05/03/2021 05/03/2021 05/03/2021 6:21 PM CDT documented as of this encounter Care Teams Account Executive Software Sales Relationship Specialty Start Date End Date Paula Chopra NP [address] [address] PCP - General Nurse Practitioner Family 04/07/20 3 Purnima Valle PA [address] [place] [id number] PCP - General PHYSICIAN 411 DIRECTORY ASSISTANCE OPERATOR 04/24/23 Mike Doherty MD [address] [address] Consulting Physician CARDIOVASCULAR DISEASE 05/09/2102/14 Shari Ennis NP [address] [address] Nurse Practitioner Nurse Practitioner Family 05/09/2102/04 Teodora Dukes MD [address] [place] [address] Magistrate CARDIOVASCULAR DISEASE 12/02/24 Mark Yoon MD [address] [place] [address] Consulting Physician CLINICAL CARDIAC ELECTROPHYSIOLOGY 02/15/25 Paige Marr PA-C [address] [place] [address] Referring Physician PHYSICIAN 411 DIRECTORY ASSISTANCE OPERATOR 03/14/25 documented as of this encounter
--- OUTSIDE RECORDS SUMMARY | 2025-05-11 16:48 | XMS_ITS | Encounter Summary ---
Author Organization [facility] Address [facility] [place] [address] Care Team Providers Care Insurance Agent Name Role Phone Paula Chopra NP Primary Care Provider [phone] Mike Doherty MD Unavailable [phone] Shari Ennis NP Unavailable [phone] Purnima Valle Primary Care Provider [phone] Teodora Dukes MD Unavailable Mark Yoon MD Unavailable [phone] Paige Marr PA-C Unavailable + [phone] Encounter Details Date Type Department Care Team (Late st Contact Info) Description 09/14/2020 90 Day Stroke Follow-up Call [facility] Chick Grader [address] [place] [address] Ailin Silver, RN Social History Tobacco Use [...] than three times a week 04/06/2020 Attends Jew Services Never 04/06 Active Member of Clubs or Organizations No 04/06/2020 Attends Club or Organization Meetings Never 04/06/2020 Marital Status 04/06/2020 Overall Financial Resource Strain (CARDIA) Answe r Date Recorded Difficulty of Paying Living Expenses Not hard at all 04/06/2020 [facility] of Occupat ional Health - Occupational Stress [...] PM CDT 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 Gender Identity Male 04/06/2020 1:53 PM CDT [...] 05/25/2025 2:30 AM CDT Allied Health/Nurse Visit [facility] [address] [place] [address] Mark Yoon MD [address] [place] [address] 07/07/2025 10:30 AM CDT Office Visit [facility] [place] [address] [place] [address] Teodora Dukes MD [address] [place] [address] 03/16/2026 9:00 AM CDT Office Visit [place] [address] [place] [address] Paige Marr PA-C [address] [place] [address] 03/16/2026 9:00 AM CDT Allied Health/Nurse Visit [place] [address] [place] [address] Mark Yoon MD [address] [place] [address] documented as of this encounter Visit Diagnoses Not on filedocumented in this encounter Additional Health Concerns Infection Onset Date Last Indicated Resolved Time COVID-19 Rule Out 05/03/2021 05/03/2021 05/03/2021 6:21 PM CDT documented as of this encounter Care Teams Insurance Agent Relationship Specialty Start Date End Date Paula Chopra NP [address] [address] PCP - General Nurse Practitioner Family 04/07/20 3 Purnima Valle PA [address] [place] [id number] PCP - General PHYSICIAN PHYS ASSISTANT 04/24/23 Mike Doherty MD [address] [address] Consulting Physician CARDIOVASCULAR DISEASE 05/09/2102/14 Shari Ennis NP [address] [address] Nurse Practitioner Nurse Practitioner Family 05/09/2102/04 Teodora Dukes MD [address] [place] [address] [place] Inspector Water Pollution Control CARDIOVASCULAR DISEASE 12/02/24 Mark Yoon MD [address] [place] [address] Consulting Physician CLINICAL CARDIAC ELECTROPHYSIOLOGY 02/15/25 Paige Marr PA-C [address] [place] [address] Referring Physician PHYSICIAN PHYS ASSISTANT 03/14/25 documented as of this encounter
--- NOTE | 2025-05-11 16:58 | ECG_ITS ---
Test Date: 2025-05-11 16:58:54 Measurements Intervals [place] Rate: 107 P: 63 LA: 136 QRS: 80 QRSD: 107 T: -56 QT: 327 QTc: 438 Interpretive Statements SINUS T[address]YCARDIA [address]-T WAVE ABNORMALITY IN DIFFUSE LEADS- CONSIDER ISCHEMIA BASELINE ARTIFACT- I, II, AVR, AVL, AVF, V6 ABNORMAL ECG No previous ECG available for comparison Electronically Signed On 05-11-2025 17:34:57 CDT by Axel Fields D.O.
[2025-05-11 17:23] LABS: HCO3 ABG 25.3 mmol/L (23-29); Oxygen Saturation ABG 69.3 % (95-97); PCO2 ABG 29.5 mmHg (35-45)
[2025-05-11] MEDS: ONDANSETRON INJ 4 MG/2 ML VIAL 8 MG IV PUSH (17:24)
[2025-05-11 17:41] LABS: Mean Corpuscular HGB Conc 32.0 g/dL (32-36); Mean Corpuscular Hemoglobin 34.8 pg (27.0-31.0); Mean Corpuscular Volume 108.9 fL (78.0-102.0); Platelet Count Result 105 K/mm3 (150-420); Red Blood Count 1.35 M/mm3 (4.70-6.10)
[2025-05-11 17:43] LABS: Alanine Aminotransferase 28 U/L (6-50); Albumin Level 3.8 g/dL (3.5-5.1); Alkaline Phosphatase 138 U/L (38-126); Anion Gap 9 mmol/L (4-12); Aspartate Amino Transferase 218 U/L (17-59); Bilirubin,Total 1.9 mg/dL (0.2-1.3); Blood Urea Nitrogen 13 mg/dL (9-20); Calcium 9.2 mg/dL (8.4-10.2); Carbon Dioxide 27 mmol/L (22-30); Chloride 97 mmol/L (98-107); Estimated Glomerular Filt Rate > 60; Glucose 157 mg/dL (65-110); Lipase 49 U/L (23-300); Osmolality Calculated 279 mOsm/kg (285-295); Potassium 3.0 mmol/L (3.4-5.0); Sodium 133 mmol/L (137-145); Total Protein 6.6 g/dL (6.3-8.2)
[2025-05-11 17:46] LABS: INR 1.5; Partial Thromboplastin Time 27.5 Sec (23.9-30.70); Prothrombin Time 15.8 Seconds (9.50-12.1)
[2025-05-11 17:50] LABS: Liters per Minute 0.0 LPM; Modified Allen's Test Pass; PO2 ABG 31.4 mmHg (80-90); Site Drawn LEFT RADIAL
[2025-05-11 17:50] LABS: White Blood Count 368.6 K/mm3 (4.8-10.8)
[2025-05-11 17:51] LABS: Hematocrit 14.7 % (40.0-54.0); Hemoglobin 4.7 g/dL (14.0-18.0)
--- OUTSIDE RECORDS SUMMARY | 2025-05-11 17:53 | XMS_ITS | Encounter Summary ---
Author Organization [facility] Address [facility] [place] [address] Care Team Providers Care Surgical Orderly Name Role Phone Paula Chopra NP Primary Care Provider [phone] Mike Doherty MD Unavailable [phone] Shari Ennis NP Unavailable [phone] Purnima Valle Primary Care Provider [phone] Teodora Dukes MD Unavailable Mark Yoon MD Unavailable [phone] Paige Marr PA-C Unavailable + [phone] Encounter Details Date Type Department Care Team (Late st Contact Info) Description 09/14/2020 90 Day Stroke Follow-up Call [facility] Dedicated Truck Driver [address] [place] [address] Ailin Silver, RN Social History Tobacco Use [...] than three times a week 04/06/2020 Attends Protestant Services Never 04/06 Active Member of Clubs or Organizations No 04/06/2020 Attends Club or Organization Meetings Never 04/06/2020 Marital Status 04/06/2020 Overall Financial Resource Strain (CARDIA) Answe r Date Recorded Difficulty of Paying Living Expenses Not hard at all 04/06/2020 [facility] of Occupat ional Health - Occupational [...] PM CDT 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 Gender Identity Male 04/06/2020 1:53 PM CDT [...] 05/25/2025 2:30 AM CDT Allied Health/[facility] Visit [facility] [address] [place] [address] Mark Yoon MD [address] [place] [address] 07/07/2025 10:30 AM CDT Office Visit [facility] [place] [address] [place] [address] Teodora Dukes MD [address] [place] [address] 03/16/2026 9:00 AM CDT Office Visit [place] [address] [place] [address] Paige Marr PA-C [address] [place] [address] 03/16/2026 9:00 AM CDT Allied Health/Nurse Visit [place] [address] [place] [address] Mark Yoon MD [address] [place] [address] documented as of this encounter Visit Diagnoses Not on filedocumented in this encounter Additional Health Concerns Infection Onset Date Last Indicated Resolved Time COVID-19 Rule Out 05/03/2021 05/03/2021 05/03/2021 6:21 PM CDT documented as of this encounter Care Teams Surgical Orderly Relationship Specialty Start Date End Date Paula Chopra NP [address] [address] PCP - General Nurse Practitioner Family 04/07/20 3 Purnima Valle PA [address] [place] [phone] PCP - General PHYSICIAN CHEF 04/24/23 Mike Doherty MD [address] [address] Consulting Physician CARDIOVASCULAR DISEASE 05/09/2102/14 Shari Ennis NP [address] [address] Nurse Practitioner Nurse Practitioner Family 05/09/2102/04 Teodora Dukes MD [address] [place] [address] [place] Swimming Pool Installer CARDIOVASCULAR DISEASE 12/02/24 Mark Yoon MD [address] [place] [address] Consulting Physician CLINICAL CARDIAC ELECTROPHYSIOLOGY 02/15/25 Paige Marr PA-C [address] [place] [address] Referring Physician PHYSICIAN CHEF 03/14/25 documented as of this encounter
--- OUTSIDE RECORDS SUMMARY | 2025-05-11 17:53 | XMS_ITS | Clinical Summary ---
Author Organization [facility] Address [address] [place] [address] Care Team Providers Care Stator Winder Name Role Phone Purnima Valle Primary Care Provider [phone] Teodora Dukes MD Unavailable Mark Yoon MD Unavailable [phone] Paige Marr PA-C Unavailable [phone] Allergies Active Allergy Reactions Criticality Noted [...] ction 05/03/2021 Symptomatic bradycardia 05/03/2021 Seizure disorder ([facility]) 09/27/2020 History of embolic stroke 05/03/2020 Hyperlipidemia LDL goal <70 05/03/2020 Fatigue, unspecified type 05/03/2020 Acute embolic stroke ([facility]) 0 Resolved Problems Problem Noted Date Diagnosed Date Resolved Date Mass of finger of left hand 04/25/2023 05/30/2023 Overview (04/25/2023): Added automatically from request for surgery [id number] Encounters Date Type Department Care Team Description 03/29/2025 Telephone [facility] [address] [place] [address] Teodora Dukes MD Medication 03/18/2025 Telephone [facility] [address] [place] [address] Mark Yoon MD Information 03/17/2025 8:15 AM CDT Allied Health/Nurse Visit [facility] [place] [address] [place] [address] Mark Yoon MD In Clinic Device Check 03/17/2025 8:15 AM CDT Office Visit [facility] [address] [address] Mark Yoon MD Consult 03/17/2025 8:00 AM CDT - 03/17/2025 11:59 PM CDT Hospital Encounter [facility] [place] [address] Mark Yoon MD Discharge Disposition: Home or Self Care (Routine Discharge) 03/17/2025 Travel 03/16/2025 Telephone [facility] [address] [place] [address] Mark Yoon MD Appointment Reminder 03/15/2025 Orders Only [facility] [place] [address] [address] [place] [address] Mark Yoon MD from Last 3 Months [...] than three times a week 04/06/2020 Attends Anabaptism Services Never 04/06 Active Member of Clubs [...] move on to questions 3-9 0 09/27/2020 [facility] of Occupat ional Health - Occupational Stress [...] PM CDT 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 Gender Identity Male 04/06/2020 1:53 PM CDT [...] 05/25/2025 2:30 AM CDT Allied Health/Nurse Visit [facility] [address] [place] [address] Mark Yoon MD [address] [place] [address] 07/07/2025 10:30 AM CDT Office Visit [facility] [place] [address] [place] [address] Teodora Dukes MD [address] [place] [address] 03/16/2026 9:00 AM CDT Office Visit [facility] [place] [address] [place] [address] Paige Marr PA-C [address] [place] [address] 03/16/2026 9:00 AM CDT Allied Health/Nurse Visit [facility] [place] [address] [place] [address] Mark Yoon MD [address] [place] [address] Health Maintenance Due Date Last Done Comments [...] this topic Medical Devices Implanted Type Area Chief Radiology Device Identifier Shelf Expiration Date Model / Serial / Lot Medtronic-Linq Ii Implantable Loop Recorder-2019 Implanted:Qty: 1 on 08/08/2020 by Mike Doherty MD Explanted:04/07 by Arpit Dooley MD (Quantity not on file) Implantable Loop Recorder Chest Wall [employer] 12/04/2021 [id number] / [id number] / Medtronic Capsurefix Novus Mri Ra Lead-05/03/2021 Implanted:04/07 by Arpit Dooley MD (Quantity not on file) Lead Implant [employer] CARDIAC RHYTHM AND HEART FAILURE - DIV M 02/13/2023 4076-52 / [id number] / Medtronic Capsurefix Novus Mri Rv Lead-05/03/2021 Implanted:04/07 by Arpit Dooley MD (Quantity not on file) Lead Implant [employer] CORONARY AND STRUCTURAL HEART - DIV MEDT 01/10/2023 4076-58 / [id number] / Medtronic Kaite Xt Dr Mri Ppm-05/03/2021 Implanted:04/07 by Arpit Dooley MD (Quantity not on file) Pacemaker [employer] CARDIAC RHYTHM AND HEART FAILURE - DIV M 10/03/2022 [id number] / [id number] / Description:MRI Conditional under following conditions: [...] HHS/HCC) LIPID PANEL Routine 10/07/2023 7:06 AM LAUNCH STEWARD Fatigue Hyperlipidemia HEMOGLOBIN, GLYCOSYLATED Routine 04/06/2020 1:30 PM CDT from Last 3 Months or Most Recently Relevant to Health Maintenance Results * ECG 12 lead (HOSPITAL PERFORMED ONLY) (03/17/2025 8:17 AM CDT) 03/17/2025 8:17 AM CDT Narrative [facility] - 03/18/2025 6:02 AM CDT [address] [place] [address] Test Date: 2025-03-17 Pat Name: TAMMY PEREZ Department: 3 Room: Gender: Male Job Developer: : 1965 Requested By: MARK YOON Order Number: [id number] Reading MD: Mark Yoon Measurements Intervals [place] Rate: 70 P: 65 [place]: 191 QRS: 48 QRSD: 98 T: 6 QT: 335 QTc: 361 Interpretive Statements SINUS RHYTHM NONSPECIFIC T-WAVE ABNORMALITY Procedure Note Mark Yoon MD - 03/18/[address] [place] [address] Test Date: 2025-03-17 Pat Name: TAMMY PEREZ Department: 3 Room: Gender: Male Job Developer: : 1965 Requested By: MARK YOON Order Number: [id number] Reading MD: Mark Yoon Measurements Intervals [place] Rate: 70 P: 65 [place]: 191 QRS: 48 QRSD: 98 T: 6 QT: 335 QTc: 361 Interpretive Statements SINUS RHYTHM NONSPECIFIC T-WAVE ABNORMALITY Mark Yoon MD ECG ORDERABLES Final Res ult [facility] * (ABNORMAL) LIPID PANEL (10/07/2023 7:06 AM LAUNCH STEWARD) CHOLESTEROL 143 MG/DL 10/07/2023 11:08 AM [facility] Comment:DESIRABLE: <200 TRIGLYCERIDES 160 MG/DL 10/07/2023 11:08 AM [facility] Comment:150-199 B[facility] HDL 36(L) >39 MG/DL 10/07/2023 11:08 AM LAUNCH STEWARD [facility] LDL-C 75 MG/DL 10/07/2023 11:08 AM LAUNCH STEWARD [facility] Comment:<100 OPTIMAL VLDL CALCULATION 32 MG/DL 10/07/19 11:08 AM [facility] Comment:REFERENCE RANGE NOT ESTABLISHED CHOL/HDL RATIO 4.0 10/07/2023 11:08 AM LAUNCH STEWARD [facility] Comment:REFERENCE RANGE NOT ESTABLISHED LDL/HDL 2.1 10/07/2023 11:08 AM LAUNCH STEWARD [facility] Comment:REFERENCE RANGE NOT ESTABLISHED NON HDL CHOLESTEROL 107 MG/DL 10/07/2023 11:08 AM LAUNCH STEWARD [facility] Comment:REFERENCE RANGE NOT ESTABLISHED 10/07/2023 7:06 AM LAUNCH STEWARD Mj Hughes MD LABORATORY Final Result Performing Organization Address [facility] Co de Phone Number [facility] [address] [place] [address], [place] [phone] * (ABNORMAL) HEMOGLOBIN, GLYCATED (04/06/2020 1:30 PM CDT) HGB A1C 5.9(H) <5.7 % 04/06/2020 9:46 PM CDT [facility] ESTIMATED AVG GLUCOSE 123(H) 74 - 114 MG/DL 04/06/2020 9:46 PM CDT [facility] 04/06/2020 1:30 PM CDT Marty Davey MD LABORATORY Final Result Performing Organization Address [facility] de Phone Number [facility] [address] [place] [address], [place] [phone] [id number] from Last 3 Months or Most Recently Relevant to Health Maintenance Insurance MEDICARE Advance Directives Documents on File Type Date Recorded Patient General Manager [employer] Expl anation Advance Directives and Living Will 04/06/2020 6:20 AM SURROGATE DECISION MAKER 04/06/2020 * Full Code (Latest Code Status on File) Date Activated Date Inactivated Comments 05/03/2021 5:54 PM 05/04/2021 11:04 AM * Full Code Date Activated Date Inactivated Comments 04/06/2020 1:06 PM 04/11/2020 3:50 PM Care Teams Stator Winder Relationship Specialty Start Date End Date Purnima Valle PA [address] [facility] [place] [address] PCP - General PHYSICIAN ORACLE BRM DEVELOPER 04/24/23 Teodora Dukes MD [address] [place] [address] [place] [employer] Specialist CARDIOVASCULAR DISEASE 12/02/24 Mark Yoon MD [address] [place] [address] Consulting Physician CLINICAL CARDIAC ELECTROPHYSIOLOGY 02/15/25 Paige Marr PA-C [address] [place] [address] Referring Physician PHYSICIAN ORACLE BRM DEVELOPER 03/14/25
--- OUTSIDE RECORDS SUMMARY | 2025-05-11 17:53 | XMS_ITS | Encounter Summary ---
Author Organization [facility] Address [address] [place] [address] Care Team Providers Care Paste Maker Name Role Phone Paula Chopra NP Primary Care Provider [phone] Mike Doherty MD Unavailable [phone] Shari Ennis NP Unavailable [phone] Purnima Valle Primary Care Provider [phone] Teodora Dukes MD Unavailable Mark Yoon MD Unavailable [phone] Paige Marr PA-C Unavailable + [phone] Encounter Details Date Type Department Care Team (Late st Contact Info) Description 05/04/2021 Hospital Follow-up Call [facility] [address] [place] [address] Chelle Candelaria RN Social History Tobacco Use [...] than three times a week 04/06/2020 Attends Muslim Services Never 04/06 Active Member of Clubs [...] move on to questions 3-9 0 09/27/2020 [facility] [place] of Occupat ional Health - Occupational Stress [...] PM CDT Legal Sex Male 6:00 PM PRESALES 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 SPECIALIST Gender Identity Male 04/06/2020 1:53 PM CDT [...] 05/25/2025 2:30 AM CDT Allied Health/Nurse Visit [facility] [address] [place] [address] Mark Yoon MD [address] [place] [address] 07/07/2025 10:30 AM CDT Office Visit [facility] [place] [address] [place] [address] Teodora Dukes MD [address] [place] [address] 03/16/2026 9:00 AM CDT Office Visit [facility] [place] [address] Paige Marr PA-C [address] [place] [address] 03/16/2026 9:00 AM CDT Allied Health/Nurse Visit [facility] [place] [address] Mark Yoon MD [address] [place], [place] [address] documented as of this encounter Visit Diagnoses Not on filedocumented in this encounter Care Teams Paste Maker Relationship Specialty Start Date End Date Paula Chopra NP [address] [place] [address] [place] [address] PCP - General Nurse Practitioner Family 04/07/20 3 Purnima Valle PA [address] [place] [address] PCP - General PHYSICIAN EMERGENCY SPILL RESPONSE TECHNICIAN 04/24/23 Mike Doherty MD [address] [facility] [address] [place] [address] Consulting Physician CARDIOVASCULAR DISEASE 05/09/2102/14 Shari Ennis NP [address] [facility] [address] [place] [address] Nurse Practitioner Nurse Practitioner Family 05/09/2102/04 Teodora Dukes MD [address] [place] [address] [employer] Chair CARDIOVASCULAR DISEASE 12/02/24 Mark Yoon MD [address] [place], [place] [address] Consulting Physician CLINICAL CARDIAC ELECTROPHYSIOLOGY 02/15/25 Paige Marr PA-C [address] [place] [address] Referring Physician PHYSICIAN EMERGENCY SPILL RESPONSE TECHNICIAN 03/14/25 documented as of this encounter
--- OUTSIDE RECORDS SUMMARY | 2025-05-11 17:53 | XMS_ITS | Encounter Summary ---
Author Organization [facility] Address [facility] [place] [address] Care Team Providers Care Medical Staff Assistant Name Role Phone Paula Chopra NP Primary Care Provider [phone] Mike Doherty MD Unavailable [phone] Shari Ennis NP Unavailable [phone] Purnima Valle Primary Care Provider [phone] Teodora Dukes MD Unavailable Mark Yoon MD Unavailable [phone] Paige Marr PA-C Unavailable + [phone] Encounter Details Date Type Department Care Team (Late st Contact Info) Description 09/14/2020 90 Day Stroke Follow-up Call [facility] Patient Care Coordinator [address] [place] [address] Ailin Silver, RN Social History Tobacco Use [...] than three times a week 04/06/2020 Attends Congregation Services Never 04/06 Active Member of Clubs or Organizations No 04/06/2020 Attends Club or Organization Meetings Never 04/06/2020 Marital Status 04/06/2020 Overall Financial Resource Strain (CARDIA) Answe r Date Recorded Difficulty of Paying Living Expenses Not hard at all 04/06/2020 [facility] of Occupat ional Health - Occupational [...] PM CDT 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 Gender Identity Male 04/06/2020 1:53 PM CDT [...] 05/25/2025 2:30 AM CDT Allied Health/Nurse Visit [facility] [address] [place] [address] Mark Yoon MD [address] [place] [address] 07/07/2025 10:30 AM CDT Office Visit [facility] [place] [address] [place] [address] Teodora Dukes MD [address] [place] [address] 03/16/2026 9:00 AM CDT Office Visit [place] [address] [place] [address] Paige Marr PA-C [address] [place] [address] 03/16/2026 9:00 AM CDT Allied Health/Nurse Visit [place] [address] [place] [address] Mark Yoon MD [address] [place] [address] documented as of this encounter Visit Diagnoses Not on filedocumented in this encounter Additional Health Concerns Infection Onset Date Last Indicated Resolved Time COVID-19 Rule Out 05/03/2021 05/03/2021 05/03/2021 6:21 PM CDT documented as of this encounter Care Teams Medical Staff Assistant Relationship Specialty Start Date End Date Paula Chopra NP [address] [address] PCP - General Nurse Practitioner Family 04/07/20 3 Purnima Valle PA [address] [place] [id number] PCP - General PHYSICIAN FELT WASHING MACHINE TENDER 04/24/23 Mike Doherty MD [address] [address] Consulting Physician CARDIOVASCULAR DISEASE 05/09/2102/14 Shari Ennis NP [address] [address] Nurse Practitioner Nurse Practitioner Family 05/09/2102/04 Teodora Dukes MD [address] [place] [address] [place] Silverware Assembler CARDIOVASCULAR DISEASE 12/02/24 Mark Yoon MD [address] [place] [address] Consulting Physician CLINICAL CARDIAC ELECTROPHYSIOLOGY 02/15/25 Paige Marr PA-C [address] [place] [address] Referring Physician PHYSICIAN FELT WASHING MACHINE TENDER 03/14/25 documented as of this encounter
[2025-05-11 17:55] LABS: Troponin I 0.021 ng/mL (0.000-0.034)
--- NOTE | 2025-05-11 19:42 | PC.NURSE ---
Upped O2 to 4L per ERP
[2025-05-11 19:49] LABS: Band Neutrophils Percent 0 % (0-6); Basophils Absolute Manual 7.37 K/mm3 (0-0.1); Basophils Percent Manual 2 % (0-1); Lymphocytes Absolute Manual 29.48 K/mm3 (1.1-4.5); Lymphocytes Percent Manual 8 % (18-44); Monocytes Absolute Manual 309.62 K/mm3 (0.1-0.90); Monocytes Percent Manual 84 % (3-9); Neutrophils Absolute Manual 22.11 K/mm3 (1.3-6.7); Neutrophils Percent Manual 6 % (46-73); Total Cells Counted 100
[2025-05-11 19:50] LABS: Anisocytosis 2+; Hypochromasia 3+; Schistocytes None Seen
[2025-05-11 20:17] LABS: Uric Acid 12.1 mg/dL (3.5-8.5)
[2025-05-11 23:49] LABS: Influenza A QL RT-PCR Negative (Negative); Influenza B QL RT-PCR Negative (Negative); RSV RNA, RT-PCR Negative (Negative); SARS-CoV-2 RNA PCR Negative (Negative)
[2025-05-12 00:01] VITALS: BP 116/71; PULSE 97; O2SAT 98
[2025-05-12 07:54] LABS: NT Pro B Type Natriuretic Pept 620 pg/mL (19.9-100)
== END 2025-05-12 00:25 | disposition short-term general hospital (02) ==
PROVIDERS: Emergency Provider Emergency Medicine; PCP Nurse Practitioner Family
DX: J96.01 Acute respiratory failure with hypoxia (principal); C95.00 Acute leukemia of unspecified cell type not having achieved remission; D64.9 Anemia, unspecified; D69.6 Thrombocytopenia, unspecified; I10 Essential (primary) hypertension; E78.5 Hyperlipidemia, unspecified; J44.9 Chronic obstructive pulmonary disease, unspecified; Z86.73 Personal history of transient ischemic attack (TIA), and cerebral infarction without residual deficits; Z20.822 Contact with and (suspected) exposure to COVID-19
CPT/HCPCS: 36415; 36600; 71045; 80053; 82805; 83615; 83690; 83880; 84100; 84484; 84550; 85025; 85610; 85730; 86850; 86900; 86901; 87637; 93005; 96374; 99285; A9270; J2405

== ENCOUNTER 2025-06-11 10:36 | Emergency (ER) | payer MEDICARE, SELFPAY ==
--- OUTSIDE RECORDS SUMMARY | 2025-06-10 06:30 | XMS_ITS | Encounter Summary ---
Author Organization [facility] Healthcare Address [address] [place] [address] Care Team Providers Care Lawyers Name Role Phone Nohelia Duval NP Primary Care Provider [phone] Munir Lott MD PhD Unavailable [phone] Encounter Details Date Type Department Care Team (Latest Contact Info) Description 06/10/2025 6:30 AM CDT Clinical Support [facility] - Lab Collection [address] [facility] [place] [address] [place] [address] 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 having achieved remission (HCC) Social History Tobacco Use Types Packs/Day Years Used Date Smoking Tobacco: Every Day Smokeless Tobacco: Never Alcohol Use Standard Drinks/Week Comments No 0 (1 standard drink = 0.6 oz pur e alcohol) PHQ-2 Answer Date Recorded PHQ-2 Total Score 1 06/05/2025 PHQ-9 Answer Date Recorded PHQ-9 Total Score 1 06/05/2025 Social Connection and Isolation Panel Answer Date Recorded In a typical week, how many times do you talk on the phone with family, friends, or neighbors? More than three times a week 06/05/2025 How often do you get togethe r with friends or relatives? Once a week 06/05/2025 How often do you attend chur ch or sikh services? Never 06/05/2025 Do you belong to any clubs o r organizations such as latter-day groups, unions, fraternal or athletic groups, or school groups? No 06/05/2025 How often do you attend meet ings of the clubs or organizations you belong to? Never 06/05/2025 Are you , , di vorced, , never , or living with a partner? Living with partner 06/05/2025 Overall Financial Resource Strain (CARDIA) Answe r Date Recorded How hard is it for you to pa y for the very basics like food, housing, medical care, and heating? Not hard at all 06/05/2025 Hunger Vital Sign Answer Date Recorded Within the past 12 months, y ou worried that your food would run out before you got the money to buy more. Never true 06/05/20 25 Within the past 12 months, t he food you bought just didn't last and you didn't have money to get more. Never true 06/05/2025 PRAPARE - Transportation Answer Date Re corded In the past 12 months, has l ack of transportation kept you from medical appointments or from getting medications? No 05/09 In the past 12 months, has l ack of transportation kept you from meetings, work, or from getting things needed for daily living? No 06/05/2025 Housing Stability Vital Sign Answer Adelso e Recorded In the last 12 months, was t here a time when you were not able to pay the mortgage or rent on time? No 06/05/2025 In the past 12 months, how m any times have you moved where you were living? 0 06/05/2025 At any time in the past [facility], were you homeless or living in a assisted (including now)? No 06/05/2025 [facility] Utilities Answer Date Recorded In the past 12 months has th e electric, gas, oil, or water company threatened to shut off services in your home? Patient unable to answer 06/04/2025 Personal Safety Answer Date Recorded Have you ever been in or are you currently in a harmful physical or emotional relationship or is someone making you feel afraid or unsafe? Denies 06/03/2025 Sex and Gender Information Value Date Recorded Sex Assigned at Not on file Legal Sex Male 11:58 AM CDT Gender Identity Not on file Sexual Orientation Not on file documented as of this encounter Plan of Treatment Not on file documented as of this encounter Procedures Procedure Name Priority Date/Time Associated Diagnosis Comments EGFR Routine 06/10/2025 6:45 AM CDT 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 having achieved remission (HCC) CBC WITH AUTO DIFFERENTIAL Routine 06/10/2025 6:45 AM CDT 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 having achieved remission (HCC) MANUAL DIFFERENTIAL Routine 06/10/2025 6 :45 AM CDT 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 having achieved remission (HCC) TYPE AND SCREEN Routine 06/10/2025 6:45 AM CDT 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 having achieved remission (HCC) LACTATE DEHYDROGENASE Routine 06/10/2025 6:45 AM CDT 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 having achieved remission (HCC) COMPREHENSIVE METABOLIC PANEL Routine 06/10/2025 6:45 AM CDT 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 having achieved remission (HCC) documented in this encounter Results * eGFR (06/10/2025 6:45 AM CDT) eGFR >90 >=60 mL/min/1. 73 m2 Comment: Interpretive Data Reference Interval Normal >/= 90 mL/min/1.73m2 Mildly decreased* 60 - 89 mL/min/1.73m2 Mildly to moderately decreased 45 - 59 mL/min/1.73m2 Moderately to severely decreased 30 - 44 mL/min/1.73m2 Severely decreased 15 - 29 mL/min/1.73m2 Kidney Failure < 15 mL/min/1.73m2 *Relative to young adult level Estimated glomerular filtration rate is determined by the 2020 CKD-EPI equation recommended by the National Kidney Foundation (A Unifying Approach to GFR Estimation: Recommendations of the NKF-ASK Task Force on Reassessing the Inclusion of Race in Diagnosing Kidney Disease, JASN 202). The CKD-EPI equation should not be used for patients with unstable renal function and has not been validated in children and those over 70. Current interpretive data was last reviewed 2021. Blood 06/10/2025 6:45 AM CDT 06/10/2025 6:51 AM CDT Munir Lott MD PhD LAB BLOOD ORDERABLES Fin al Result [facility] [place] [address] * (ABNORMAL) Manual Differential (06/10/2025 6:45 AM CDT) Cells Counted 69 Comment:Testing performed by : [facility], [address] [place], [place] [id number] Neutrophil abs 0.86(L) 1.50 - 6.50 K/cumm [facility] Comment:Testing performed by : [facility], [address] [place] [address] Lymphocyte abs 0.72(L) 0.80 - 3.30 K/cumm [facility] Comment:Testing performed by : [facility], [address] [place], [place] [id number] Monocyte abs 0.00(L) 0.20 - 0.80 K/cumm [facility] Comment:Testing performed by : [facility], [address] [place] [address] Eosinophil abs 0.02 0.00 - 0.50 K/cumm [facility] Comment:Testing performed by : [facility], [address] [place], [place] [id number] Basophil abs 0.00 0.00 - 0.10 K/cumm [facility] Comment:Testing performed by : [facility], [address] [place] [address] Neutrophil pct 54.0 % [facility] Comment: Interpretive Data Percent cell count reference ranges are not reported, since discordance with absolute values may lead to misinterpretation of CBC data. Current Interpretive Data was last revised on 2018. Testing performed by: [facility], [address] [place] [address] Lymphocyte pct 45.0 % [facility] Comment: Interpretive Data Percent cell count reference ranges are not reported, since discordance with absolute values may lead to misinterpretation of CBC data. Current Interpretive Data was last revised on 2018. Testing performed by: [facility], [address] [place] [phone] Monocyte pct 0.0 % [facility] Comment: Interpretive Data Percent cell count reference ranges are not reported, since discordance with absolute values may lead to misinterpretation of CBC data. Current Interpretive Data was last revised on 2018. Testing performed by: [facility], [address] [place], [place] [phone] Eosinophil pct 1.0 % [facility] Comment: Interpretive Data Percent cell count reference ranges are not reported, since discordance with absolute values may lead to misinterpretation of CBC data. Current Interpretive Data was last revised on 2018. Testing performed by: [facility], [address] [place], [place] [phone] Basophil pct 0.0 % [facility] Comment: Interpretive Data Percent cell count reference ranges are not reported, since discordance with absolute values may lead to misinterpretation of CBC data. Current Interpretive Data was last revised on 2018. Testing performed by: [facility], [address] [place], [place] [phone] Smudge cells, qual Present(A ) [facility] Comment:Testing performed by : [facility], [address] [place], [place] [phone] RBC morphology NRBCs present(A ) [facility] Comment:Testing performed by : [facility], [address] [place] [phone] Polychromasia 1+(A) [facility] Comment:Testing performed by : [facility], [address] [place] [phone] Hypochromasia 2+(A) [facility] Comment:Testing performed by : [facility], [address] [place] [phone] Anisocytosis 1+(A) [facility] Comment:Testing performed by : [facility], [address] [place] [phone] Poikilocytosis 1+(A) [facility] Comment:Testing performed by : [facility], [address] [place] [phone] Microcytes 2+(A) ANGELA DUNAWAY Comment:Testing performed by : [facility], [address] [place] [address] Macrocytes 1+(A) ANGELA DUNAWAY Comment:Testing performed by : [facility], [address] [place] [address] Elliptocytes 1+(A) ANGELA DUNAWAY Comment:Testing performed by : [facility], [address] [place] [address] Target cells 1+(A) ANGELA DUNAWAY Comment:Testing performed by : [facility], [address] [place], [place] [phone] Platelet estimate Decreased (A) ANGELA DUNAWAY Comment:Testing performed by : [facility], [address] [place] [address] Blood 06/10/2025 6:45 AM CDT 06/10/2025 6:48 AM CDT us Munir Lott MD PhD LAB BLOOD ORDERABLES Fin al Result [facility] [place] [address] * (ABNORMAL) CBC with auto differential (06/10/2025 6:45 AM CDT) WBC 1.59(L) 3.80 - 9.90 K/cumm Comment:Testing performed by : [facility], [address] [place] [address] Hgb 8.9(L) 13.0 - 17.5 g/dL ANGELA DUNAWAY Comment:Testing performed by : [facility], [address] [place] [address] Hct 25.8(L) 38.9 - 50.3 % ANGELA DUNAWAY Comment:Testing performed by : [facility], [address] [place] [address] Plt 11(C) 150 - 400 K/cumm [facility] Comment: Results Consistent with Previous Results Testing performed by: [facility], [address] [place] [address] MPV 9.2 6.8 - 10.4 fL [facility] Comment:Testing performed by : [facility], [address] [place] [address] RBC 2.93(L) 4.30 - 5.80 M/cumm [facility] Comment:Testing performed by : [facility], [address] [place] [address] MCV 88.1 81.3 - 96.4 fL [facility] Comment:Testing performed by : [facility], [address] [place] [address] MCH 30.2 27.1 - 33.3 pg [facility] Comment:Testing performed by : [facility], [address] [place] [address] MCHC 34.3 32.3 - 35.7 g/dL [facility] Comment:Testing performed by : [facility], [address] [place] [address] RDW CV 16.3(H) 11.1 - 14.9 % [facility] Comment:Testing performed by : [facility], [address] [place] [address] NRBC abs 0.20(H) 0.00 - 0.01 K/cumm [facility] Comment:Testing performed by : [facility], [address] [place] [address] Blood 06/10/2025 6:45 AM CDT 06/10/2025 6:48 AM CDT us Munir Lott MD PhD LAB BLOOD ORDERABLES Fin al Result [facility] [place] [address] * (ABNORMAL) Comprehensive metabolic panel (06/10/2025 6:45 AM CDT) Sodium 136 135 - 145 mmol/L Potassium, pl 3.5 3.3 - 4.9 mmol/L [facility] Chloride 102 97 - 110 mmol/L [facility] CO2 26 22 - 32 mmol/L [facility] Anion gap 8 2 - 15 mmol/L [facility] BUN 7 6 - 25 mg/dL [facility] Creatinine 0.74(L) 0.80 - 1.30 mg/dL [facility] Glucose 87 70 - 199 mg/dL [facility] Comment: Interpretive Data Fasting glucose >/= 126 mg/dl is diagnostic for diabetes. Fasting is defined as no caloric intake for at least 8 hours. Fasting glucose between 100 mg/dl to 125 mg/dl is diagnostic of prediabetes. In a patient with classic symptoms of hyperglycemia or hyperglycemic crisis, a random glucose >/= 200 mg/dl is diagnostic for diabetes. In the absence of unequivocal hyperglycemia, results should be confirmed by repeat testing. The classification and Diagnosis of Diabetes Diabetes Care 2021; 46: S19-S40. Current interpretive data was last revised 2022. Calcium 8.5 8.5 - 10.3 mg/dL [facility] Bilirubin, total 0.7 0.1 - 1.2 mg/dL [facility] Protein, pl 6.0(L) 6.5 - 8.5 g/dL [facility] Albumin 3.6 3.5 - 5.0 g/dL [facility] Alk phos 63 40 - 130 Units/L [facility] ALT 37 7 - 55 Units/L [facility] AST 40 10 - 50 Units/L [facility] Blood 06/10/2025 6:45 AM CDT 06/10/2025 6:51 AM CDT us Munir Lott MD PhD LAB BLOOD ORDERABLES Fin al Result [facility] [place] [address] * (ABNORMAL) Lactate dehydrogenase (LD) (06/10/2025 6:45 AM CDT) Lactate dehydrogenase (LDH) 336(H) 100 - 250 Units/L Blood 06/10/2025 6:45 AM CDT 06/10/2025 6:51 AM CDT Munir Lott MD PhD LAB BLOOD ORDERABLES Fin al Result Performing Organization Address [facility] Co de Phone Number [facility] [place] [address] * Type and screen (06/10/2025 6:45 AM CDT) ABO Rh B Positive Benjy, indirect Negative [facility] Blood 06/10/2025 6:45 AM CDT 06/10/2025 7:07 AM CDT Narrative [facility] - 06/10/2025 8:09 AM CDT Has the patient had Daratumumab or Isatuximab in the past 6 months?->Unknown Munir Lott MD PhD LAB BLOOD BANK TEST ORDE RABLES Final Result Performing Organization Address [facility] [place] [address] documented in this encounter Visit Diagnoses Diagnosis 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 having achieved remission (HCC) documented in this encounter Orders Appointment Requests Count Last Ordered Date Fi rst Ordered Date ONCBCN LAB APPOINTMENT 1 06/10/2025 documented in this encounter Care Teams Lawyers Relationship Specialty Start Date End Date Nohelia Duval NP [address] [place] [address] PCP - General Nurse Practitioner 05/12/25 Munir Lott MD PhD [address] [facility] [address] [employer], , [place] [address] Medical Oncologist/Computer Systems Integrator Medical Oncology 05/27/25 documented as of this encounter
--- OUTSIDE RECORDS SUMMARY | 2025-06-10 06:30 | XMS_ITS | Encounter Summary ---
Author Organization [facility] Healthcare Address [address] [place] [address] Care Team Providers Care Sink Cutter Name Role Phone Nohelia Duval NP Primary Care Provider [phone] Munir Lott MD PhD Unavailable [phone] Encounter Details Date Type Department Care Team (Latest Contact Info) Description 06/10/2025 6:30 AM CDT Clinical Support [facility] - Lab Collection [address] [facility] Floor 6 [place] [address] 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 having achieved remission [...] often do you attend chur ch or alevism services? Never 06/05/2025 Do you belong to any clubs o r organizations such as hindu groups, unions, fraternal or athletic groups, or [...] any time in the past 12 m [facility], were you homeless or living in a penitentiary (including now)? No 06/05/2025 [facility] Utilities Answer Date Recorded In the past [...] PhD LAB BLOOD ORDERABLES Fin al Result [facility] One [facility] Department [place] [address] * (ABNORMAL) Manual Differential (06/10/2025 6:45 AM CDT) Cells Counted 69 Comment:Testing performed by : [facility], [address] [place], [place] [id number] Neutrophil abs 0.86(L) 1.50 - 6.50 K/cumm CERNER BJ Comment:Testing performed by : [facility], [address] [place] [address] Lymphocyte abs 0.72(L) 0.80 - 3.30 K/cumm CERNER BJ Comment:Testing performed by : [facility], [address] [place], [place] [id number] Monocyte abs 0.00(L) 0.20 - 0.80 K/cumm CERNER BJ Comment:Testing performed by : [facility], [address] [place] [address] Eosinophil abs 0.02 0.00 - 0.50 K/cumm [facility] Comment:Testing performed by : [facility], [address] [place], [place] [id number] Basophil abs 0.00 0.00 - 0.10 K/cumm C[facility]J Comment:Testing performed by : [facility], [address] [place] [address] Neutrophil pct 54.0 % C[facility]ER BJ Comment: Interpretive Data Percent cell count reference ranges are not reported, since discordance with absolute values may lead to misinterpretation of CBC data. Current Interpretive Data was last revised on 2018. Testing performed by: [facility], [address] [place] [address] Lymphocyte pct 45.0 % [facility] Comment: Interpretive Data Percent cell count reference ranges are not reported, since discordance with absolute values may lead to misinterpretation of CBC data. Current Interpretive Data was last revised on 2018. Testing performed by: [facility], [address] [place] [phone] Monocyte pct 0.0 % [facility] Comment: Interpretive Data Percent cell count reference ranges are not reported, since discordance with absolute values may lead to misinterpretation of CBC data. Current Interpretive Data was last revised on 2018. Testing performed by: [facility], [address] [place], [place] [phone] Eosinophil pct 1.0 % [facility] Comment: Interpretive Data Percent cell count reference ranges are not reported, since discordance with absolute values may lead to misinterpretation of CBC data. Current Interpretive Data was last revised on 2018. Testing performed by: [facility], [address] [place], [place] [phone] Basophil pct 0.0 % [facility] Comment: Interpretive Data Percent cell count reference ranges are not reported, since discordance with absolute values may lead to misinterpretation of CBC data. Current Interpretive Data was last revised on 2018. Testing performed by: [facility], [address] [place], [place] [phone] Smudge cells, qual Present(A ) C[facility] BJ Comment:Testing performed by : [facility], [address] [place], [place] [phone] RBC morphology NRBCs present(A ) [facility] BJ Comment:Testing performed by : [facility], [address] [place] [phone] Polychromasia 1+(A) [facility] BJ Comment:Testing performed by : [facility], [address] [place] [phone] Hypochromasia 2+(A) C[facility] BJ Comment:Testing performed by : [facility], [address] [place] [phone] Anisocytosis 1+(A) CERNER BJ Comment:Testing performed by : [facility], [address] [place] [phone] Poikilocytosis 1+(A) CERNER BJ Comment:Testing performed by : [facility], [address] [place] [phone] Microcytes 2+(A) ANGELA DUNAWAY Comment:Testing performed by : [facility], [address] [place] [address] Macrocytes 1+(A) ANGELA DUNAWAY Comment:Testing performed by : [facility], [address] [place] [address] Elliptocytes 1+(A) ANGELA DUNAWAY Comment:Testing performed by : [facility], [address] [place] [address] Target cells 1+(A) ANGELA DUNAWAY Comment:Testing performed by : [facility], [address] [place], [place] [phone] Platelet estimate Decreased (A) ANGELA DUNAWAY Comment:Testing performed by : [facility], [address] [place] [address] Blood 06/10/2025 6:45 AM CDT 06/10/2025 6:48 AM CDT us Munir Lott MD PhD LAB BLOOD ORDERABLES Fin al Result [facility] One [facility] Department [place] [address] * (ABNORMAL) CBC with auto differential (06/10/2025 6:45 AM CDT) WBC 1.59(L) 3.80 - 9.90 K/cumm Comment:Testing performed by : [facility], [address] [place] [address] Hgb 8.9(L) 13.0 - 17.5 g/dL ANGELA DUNAWAY Comment:Testing performed by : [facility], [address] [place] [address] Hct 25.8(L) 38.9 - 50.3 % ANGELA DUNAWAY Comment:Testing performed by : [facility], [address] [place] [address] Plt 11(C) 150 - 400 K/cumm [facility] Comment: Results Consistent with Previous Results Testing performed by: [facility], [address] [place] [address] MPV 9.2 6.8 - 10.4 fL [facility] Comment:Testing performed by : [facility], [address] [place] [address] RBC 2.93(L) 4.30 - 5.80 M/cumm [facility] Comment:Testing performed by : [facility], [address] [place] [address] MCV 88.1 81.3 - 96.4 fL [facility] Comment:Testing performed by : [facility], [address] [place] [address] MCH 30.2 27.1 - 33.3 pg [facility] Comment:Testing performed by : [facility], [address] [place] [address] MCHC 34.3 32.3 - 35.7 g/dL [facility] Comment:Testing performed by : [facility], [address] [place] [address] RDW CV 16.3(H) 11.1 - 14.9 % [facility] Comment:Testing performed by : [facility], [address] [place] [address] NRBC abs 0.20(H) 0.00 - 0.01 K/cumm [facility] Comment:Testing performed by : [facility], [address] [place] [address] Blood 06/10/2025 6:45 AM CDT 06/10/2025 6:48 AM CDT us Munir Lott MD PhD LAB BLOOD ORDERABLES Fin al Result [facility] One [facility] Department [place] [address] * (ABNORMAL) Comprehensive metabolic panel (06/10/2025 6:45 AM CDT) Sodium 136 135 - 145 mmol/L Potassium, pl 3.5 3.3 - 4.9 mmol/L [facility] Chloride 102 97 - 110 mmol/L [facility] CO2 26 22 - 32 mmol/L [facility] Anion gap 8 2 - 15 mmol/L [facility] BUN 7 6 - 25 mg/dL [facility] Creatinine 0.74(L) 0.80 - 1.30 mg/dL [facility] Glucose 87 70 - 199 mg/dL [facility] Comment: Interpretive Data Fasting glucose >/= [...] 2022. Calcium 8.5 8.5 - 10.3 mg/dL [facility] Bilirubin, total 0.7 0.1 - 1.2 mg/dL [facility] Protein, pl 6.0(L) 6.5 - 8.5 g/dL [facility] Albumin 3.6 3.5 - 5.0 g/dL [facility] Alk phos 63 40 - 130 Units/L [facility] ALT 37 7 - 55 Units/L [facility] AST 40 10 - 50 Units/L [facility] Blood 06/10/2025 6:45 AM CDT 06/10/2025 6:51 AM CDT us Munir Lott MD PhD LAB BLOOD ORDERABLES Fin al Result [facility] One [facility] Department [place] [address] * (ABNORMAL) Lactate dehydrogenase (LD) (06/10/2025 6:45 AM CDT) Lactate dehydrogenase (LDH) 336(H) 100 - 250 Units/L Blood 06/10/2025 6:45 AM CDT 06/10/2025 6:51 AM CDT Munir Lott MD PhD LAB BLOOD ORDERABLES Fin al Result Performing Organization Address [facility] Co de Phone Number [facility] [place] [address] * Type and screen (06/10/2025 6:45 AM CDT) ABO Rh B Positive Benjy, indirect Negative [facility] Blood 06/10/2025 6:45 AM CDT 06/10/2025 7:07 AM CDT Narrative [facility] - 06/10/2025 8:09 AM CDT Has the patient had Daratumumab or Isatuximab in the past 6 months?->Unknown Munir Lott MD PhD LAB BLOOD BANK TEST ORDE RABLES Final Result Performing Organization Address [facility] [place] [address] documented in this encounter Visit Diagnoses Diagnosis 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 having achieved remission (HCC) documented in this encounter Orders Appointment Requests Count Last Ordered Date Fi rst Ordered Date ONCBCN LAB APPOINTMENT 1 06/10/2025 documented in this encounter Care Teams Sink Cutter Relationship Specialty Start Date End Date Nohelia Duval NP [address] [place] [address] PCP - General Nurse Practitioner 05/12/25 Munir Lott MD PhD [address] [facility] 8 DIV IM BONE MARROW TRANSPLANT, , [place] [address] Medical Oncologist/Salvage Inspector Medical Oncology 05/27/25 documented as of this encounter
--- OUTSIDE RECORDS SUMMARY | 2025-06-10 07:30 | XMS_ITS | Encounter Summary ---
Author Organization [facility] Healthcare Address [address] [place] [address] Care Team Providers Care Harbor Engineer Name Role Phone Nohelia Duval NP Primary Care Provider [phone] Munir Lott MD PhD Unavailable [phone] Encounter Details Date Type Department Care Team (Late st Contact Info) Description 06/10/2025 7:30 AM CDT Infusion [facility] - Infusion [address] [facility] Floor 6 [place] [address] 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 having achieved remission [...] any clubs o r organizations such as caodaism groups, unions, fraternal or athletic groups, or [...] any time in the past [address] [facility], were you homeless or living in a fdc (including now)? No 06/05/2025 [facility] Utilities Answer Date Recorded In the past [...] on file documented as of this encounter Last Filed Vital Signs Vital Sign Reading Time Taken Comments Blood Pressure 97/61 06/10/2025 7:42 AM CDT Pulse 63 06/10/2025 7:41 AM CDT Temperature 36.7 C (98 F) 06/10/2025 7:41 AM CDT Respiratory Rate 18 06/10/2025 7:41 AM CDT Oxygen Saturation 98% 06/10/2025 7:41 AM CDT Inhaled Oxygen Concentration - - Weight - - Height - - Body Mass Index - - documented in this encounter Nursing Notes * Clare Cortes RN - 06/10/2025 7:30 AM CDT Oncology Nursing Note Blood Product Administration [facility]CER [place] - INFUSION Shaquille Perez is a 60 y.o. male who presents for the following transfusion: Blood and Platelets Pre-treatment Nursing Assessment Nursing Assessment LOC: Alert, Awake Constitutional: Fatigue, Dizziness Fatigue: Occassional Any falls since your last visit?: No Orientation: Oriented x4 Behavior: Calm Speech: Clear Language: No aphasia Vision: At baseline Oral Mucosa Grade: Normal (0) Shortness of Breath?: No Appetite: Fair What diet do you follow at home?: regular Last BM Date: 06/10/25 Skin Condition/Temp: Warm, Dry Swelling: No BP: 97/61 Temp: 36.7 ??C (98 ??F) Pulse: 63 Resp: 18 SpO2: 98 % Lab Result Lab Results Component Value Date WBC 1.59 (L) 06/10/2025 HGB 8.9 (L) 06/10/2025 HCT 25.8 (L) 06/10/2025 MCV 88.1 06/10/2025 LABPLAT 11 (Critical) 06/10/2025 Lab Results Component Value Date NEUTROABS 0.86 (L) 06/10/2025 Patient did not meet parameters for transfusion. Additional Notes: Patient denied any nasal or rectal bleeding. Patient Education Instructed on process and procedures related to today's visit including signs and symptoms of transfusion reaction. Response: Verbalizes understanding Discharge Plan Blood product transfusion discharge instructions given to patient. Future appointments given and reviewed with treatment plan. Discharge Mode: Ambulatory Accompanied by: Family Discharged To: Home documented in this encounter Plan of Treatment Not on file documented as of this encounter Visit Diagnoses Diagnosis 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 having achieved remission (HCC) documented in this encounter Orders Appointment Requests Count Last Ordered Date Fi rst Ordered Date ONCBCN PLATELET TRANSFUSION APPT 1 06/10/20 documented in this encounter Care Teams Harbor Engineer Relationship Specialty Start Date End Date Nohelia Duval ELEMENTARY READING SPECIALIST [address] [place] [address] PCP - General Nurse Practitioner 05/12/25 Munir Lott MD PhD [facility] 8 DIV IM BONE MARROW TRANSPLANT, , [place] [address] Medical Oncologist/Head Insulation Board Saw Operator Medical Oncology 05/27/25 documented as of this encounter
--- OUTSIDE RECORDS SUMMARY | 2025-06-10 07:30 | XMS_ITS | Encounter Summary ---
Author Organization [facility] Healthcare Address [address] [place] [address] Care Team Providers Care Milanese Knitting Machine Operator Name Role Phone Nohelia Duval NP Primary Care Provider [phone] Munir Lott MD PhD Unavailable [phone] Encounter Details Date Type Department Care Team (Late st Contact Info) Description 06/10/2025 7:30 AM CDT Infusion [facility] - Infusion [address] [facility] Floor 6 [place] [address] 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 having achieved remission [...] often do you attend chur ch or yarsani services? Never 06/05/2025 Do you belong to any clubs o r organizations such as yazdanism groups, unions, fraternal or athletic groups, or [...] any time in the past 12 m [facility], were you homeless or living in a care home (including now)? No 06/05/2025 [facility] Utilities Answer Date Recorded In the past [...] CDT Oncology Nursing Note Blood Product Administration [facility]CER [place] - INFUSION Shaquille Perez is a 60 [...] 06/10/20 documented in this encounter Care Teams Milanese Knitting Machine Operator Relationship Specialty Start Date End Date Nohelia Duval SALES RECRUITING COORDINATOR [address] [place] [address] PCP - General Nurse Practitioner 05/12/25 Munir Lott MD PhD [facility] 8 DIV IM BONE MARROW TRANSPLANT, , [place] [address] Medical Oncologist/Site Damage Prevention Technician Medical Oncology 05/27/25 documented as of this encounter
--- OUTSIDE RECORDS SUMMARY | 2025-06-10 09:00 | XMS_ITS | Encounter Summary ---
Author Organization [facility] Healthcare Address [address] [place] [address] Care Team Providers Care Carpenter Assembler Name Role Phone Nohelia Duval NP Primary Care Provider [phone] Munir Lott MD PhD Unavailable [phone] Encounter Details Date Type Department Care Team (Late st Contact Info) Description 06/10/2025 9:00 AM CDT Infusion [facility] - Infusion [address] [facility] Floor [address] [place] [address] 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 having achieved remission [...] often do you attend chur ch or judaism services? Never 06/05/2025 Do you belong to any clubs o r organizations such as voodoo groups, unions, fraternal or athletic groups, or [...] any time in the past 12 m [facility], were you homeless or living in a residential (including now)? No 06/05/2025 [facility] Utilities Answer Date Recorded In the [...] on file documented as of this encounter Nursing Notes * Clare Cortes, MARTINA - 06/10/2025 9:00 AM CDT Please see other encounter. documented in this encounter Plan of Treatment Not on file documented as of this encounter Visit Diagnoses Diagnosis 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 having achieved remission (HCC) documented in this encounter Orders Appointment Requests Count Last Ordered Date Fi rst Ordered Date ONCBCN BLOOD TRANSFUSION APPT 1 06/10/2025 documented in this encounter Care Teams Carpenter Assembler Relationship Specialty Start Date End Date Nohelia Duval NP [address] [place] [address] PCP - General Nurse Practitioner 05/12/25 Munir Lott MD PhD [address] [facility] 8 DIV IM BONE MARROW TRANSPLANT, , [place] [address] Medical Oncologist/Waredresser Medical Oncology 05/27/25 documented as of this encounter
--- OUTSIDE RECORDS SUMMARY | 2025-06-10 09:00 | XMS_ITS | Encounter Summary ---
Author Organization [facility] Healthcare Address [address] [place] [address] Care Team Providers Care Dike Supervisor Name Role Phone Nohelia Duval NP Primary Care Provider [phone] Munir Lott MD PhD Unavailable [phone] Encounter Details Date Type Department Care Team (Late st Contact Info) Description 06/10/2025 9:00 AM CDT Infusion [facility] - Infusion [address] [facility] Floor [address] [place] [address] 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 having achieved remission [...] often do you attend chur ch or islam services? Never 06/05/2025 Do you belong to any clubs o r organizations such as quaker groups, unions, fraternal or athletic groups, or [...] any time in the past 12 m [facility], were you homeless or living in a mcc (including now)? No 06/05/2025 [facility] Utilities Answer Date Recorded In the [...] 06/10/2025 documented in this encounter Care Teams Dike Supervisor Relationship Specialty Start Date End Date Nohelia Duval NP [address] [place] [address] PCP - General Nurse Practitioner 05/12/25 Munir Lott MD PhD [address] [facility] 8 DIV IM BONE MARROW TRANSPLANT, , [place] [address] Medical Oncologist/Credentialing Manager Medical Oncology 05/27/25 documented as of this encounter
--- NOTE | ~2025-06-11 | XR_ITS ---
EXAMINATION: XR abdomen obstructive series DATE: 06/11/2025 11:19 INDICATION: Rectal pain and constipation TECHNIQUE: Frontal supine and upright views of the abdomen were obtained. COMPARISON: None. FINDINGS: Moderate amount of gas and stool scattered throughout the colon. No dilated loops of gas-filled bowel to suggest obstruction. No free peritoneal gas. Visualized lower lungs are clear. Heart size is normal. Mild degenerative skeletal changes. IMPRESSION: 1. No free intraperitoneal gas or dilated gas-filled loops of bowel to suggest obstruction. Reviewed, dictated and finalized at location A.
--- NOTE | 2025-06-11 10:40 | ED_ITS ---
HPI - General Adult General Chief complaint: Unspecified Stated complaint: abd pain Time Seen by Provider: 06/11/25 10:39 Source: patient Mode of arrival: ambulatory Limitations: no limitations History of Present Illness HPI narrative: patient is a 60-year-old male with rectal pain due to stool stuck in that region for the past few hours. Patient has chronic constipation secondary to Suboxone. No abdominal pain. No nausea vomiting. Onset (ago): day(s) ( One) Location: buttocks ( rectum only) Radiation: non-radiation Severity: severe Severity scale (1-10): 9 Quality: sharp Pain Consistency: constant Relieving factors: none Exacerbating factors: other ( bowel movement stuck in his rectum) Associated symptoms: denies other symptoms Treatments prior to arrival: none Related Data Home Medications ?Medication ?Instructions ?Recorded ?Confirmed ?Last Taken ?Type budesonide-formoterol HFA 80 1 puff inhalation DAILY 0 12/17/19 04/06/20 Unknown History mcg-4.5 mcg/actuation aerosol inhaler (Symbicort) bupropion HCl 150 mg 24 hr tablet, 150 mg PO DAILY 09/2504/06/20 Unknown History extended release Allergies Allergy/AdvReac Type Severity Reaction Status Date / Time No Known Allergies Allergy Verified 06/11/25 10:40 Review of Systems Review of Systems: All systems reviewed & are unremarkable except as noted in HPI and below Constitutional: Constitutional: Reports no additional constitutional complaints Eyes: Eyes: Reports no additional eye complaints ENT: Reports system reviewed and no additional complaints, except as documented Cardiovascular: Cardiovascular: Reports no additional cardiovascular complaints Respiratory: Respiratory: Reports no additional respiratory complaints Gastrointestinal: Gastrointestinal: Reports no additional gastrointestinal complaints Genitourinary: Genitourinary: Reports no additional male genitourinary complaints Musculoskeletal: Musculoskeletal: Reports no additional musculoskeletal c omplaints Integumentary/Breasts: Skin/Breast: Reports system reviewed and no additional complaints, except as docu Neurologic: Reports system reviewed and no additional complaints, except as documented Psychiatric: Psychiatric: Reports no additional psychiatric complaints Endocrine: Endocrine: Reports no additional endocrine complaints Hematologic/Lymphatic: Hematologic/Lymphatic: Reports no additional hematologic/lymphatic complaints Allergic/Immunologic: Allergic/Immunologic: Reports no additional allergic/immunologic complaints PMFSH Past Medical History Medical History COPD (chronic obstructive pulmonary disease) Social History Social History Smoking status: Current every day smoker Alcohol intake: never Substance use: former Other substance usage details: Currently uses suboxone Living arrangements: with family Gender identity (if verbalized by the patient): Male Exam Const: General: healthy appearing Nutritional Appearance: well nourished Orientation/consciousness: patient oriented x3 HENMT: Head: normal to inspection Ears: external ears normal Face/Nose/Sinus: Normal external nose present Eyes: Conjunctivae: conjunctivae normal Pupils: Equal, round and reactive pupils present EOM: EOMs intact bilaterally Neck: Neck: normal visual inspection Chest: Chest palpation & inspection: normal inspection of the chest Resp: Effort & Inspection: normal respiratory effort and not labored Auscultation: clear to auscultation bilaterally and no crackles Cardio: Rate: regular rate Rhythm: regular rhythm Heart sounds: no murmurs GI: Inspection: non-distended GI Palp: Yes Soft to palpation, No Tenderness to palpation present (GI), No Guarding due to palpation present (GI), No Rigid due to palpation, No Hernia present, No Palpable mass present and No Rebound tenderness present Auscultation: normal bowel sounds : General: Yes bladder normal to palpation Back/Spine/Pelvis: Back: no CVA tenderness Skin: General skin exam: normal color Rashes: no rashes Wounds: no wounds Neuro: General: patient oriented x3, moves all extremities and no meningeal signs Extrem: General: normal to inspection and no clubbing, cyanosis or edema Psych: Mental Status: mental status grossly normal Affect: Anxious affect present Attitude: cooperative Course Vital Signs Vital signs: Vital Signs Temperature 36.5 C 06/11/25 10:43 Pulse Rate 99 06/11/25 10:43 Respiratory Rate 20 06/11/25 10:43 Blood Pressure 114/72 06/11/25 10:43 Pulse Oximetry 100 06/11/25 10:43 Oxygen Delivery Room Air 06/11/25 10:43 Temperature 36.5 C 06/11/25 10:43 Pulse Rate 72 06/11/25 12:48 Respiratory Rate 14 06/11/25 12:48 Blood Pressure 91/57 L 06/11/25 12:48 Pulse Oximetry 100 06/11/25 12:48 Oxygen Delivery Room Air 06/11/25 12:48 Medical Decision Making MDM Narrative Medical decision making narrative: patient is a 60-year-old male with rectal pain due to inability to pass stool. We will get x-ray abdominal series. Relistor subQ. Patient spontaneously expelled a large stool. Vital Signs Vital Signs: Vital Signs Temperature 36.5 C 06/11/25 10:43 Pulse Rate 99 06/11/25 10:43 Respiratory Rate 20 06/11/25 10:43 Blood Pressure 114/72 06/11/25 10:43 Pulse Oximetry 100 06/11/25 10:43 Oxygen Delivery Room Air 06/11/25 10:43 Temperature 36.5 C 06/11/25 10:43 Pulse Rate 72 06/11/25 12:48 Respiratory Rate 14 06/11/25 12:48 Blood Pressure 91/57 L 06/11/25 12:48 Pulse Oximetry 100 06/11/25 12:48 Oxygen Delivery Room Air 06/11/25 12:48 Imaging Data Attestation: I personally reviewed and interpreted this imaging study as follows: Radiologist's impression: X-ray acute abdomen series is negative for acute process Discharge Plan Discharge Clinical Impression: Fecal impaction Patient Disposition: Home Condition: Stable Instructions: Fecal Impaction (ED) Additional Instructions: please follow-up with primary doctor in the next week. Please discuss medications such as Relistor for chronic constipation problems with opioids/Suboxone. Patient Language: Vietnamese Prescriptions: No Action budesonide-formoterol [Symbicort] 80-4.5 mcg/actuation HFA aerosol inhaler 1 puff INHALATION DAILY bupropion HCl 150 mg tablet extended release 24 hr 150 mg PO DAILY naproxen 500 mg tablet 500 mg PO BID PRN (Reason: pain) Qty: 20 0RF Follow-up/Referrals: UNKNOWN,DOCTOR [Non-Staff] Time of Disposition: 11:58
[2025-06-11 10:43] VITALS: BP 114/72; PULSE 99; RESP 20; TEMP 36.5; O2SAT 100
--- OUTSIDE RECORDS SUMMARY | 2025-06-11 10:48 | XMS_ITS ---
Author Organization [facility] Address [address] [place] [address] Care Team Providers Care Photo Tube Assembler Name Role Phone Nohelia Duval NP Primary Care Provider [phone] Munir Lott MD PhD Unavailable [phone] Active Problems Patient Care Coordination No te Formatting of this note is d ifferent from the original. [facility] Inpatient Care Coordination Diagnosis New AML - FLT3+ Reason for Admission From OSH- WBC 368, hypoxia HCT/IEC Notes URD Consent - [place] uploaded to OTTR 05/2605/31/25- Gave family info document, pt seems reluctant to fill it out. Told him to think about it and bring it to consult if he decides to give their info Discharge Planning Patient Education Completed [x] 05/31/25- Gave c/s letter, maps to [facility] and [facility]. Gave yellow when to call sheet with phone # and after hours # Gave family info document, pt seems reluctant to fill it out. Told him to think about it and bring it to consult on 06/03 with him if he decides to give their info Discharge Disposition []SNF/Rehab: [][facility] [x]Home [facility] [id number] - distance from [facility]- [address] Caregiver: Requests Sent to []Case Management: []MAs: []Pharmacy PA team: Specialty Medications -Aroldo - study provides -Gilt - study provides Post-Discharge Follow-Up Venous Access & Care TBD Local Oncologist Contact Name: Nurse: Phone: Fax: Supportive care plan Location Scheduled for Line Care Transfusions Infusion Appts Other Orders H30 [] [place] [] Locally at ____ [x] [] frequency [] for & frequency ____ [x] [facility] CONSULT Lab/ CONSULT - 06/03 Lab/ EKG/ BMBx -06/08 per VIS Follow-Up [] Restaging: ____ [] Other pending items: 05/28/25- Left VM at [facility] in [place], [place] asking for CB about supportive care Problem Noted Date Diagnosed Date Hyponatremia 06/03/2025 Assessment & Plan (06/05/2025 3:53 PM CDT): Patient's sodium was 129 on admission. Likely hypovolemic hyponatremia (most recent sodium prior to discharge was 137 on 06/01) Serum osmolality, urine osmolality, urine sodium ordered - s/o hypotonic hyponatremia with normal cortisol, likely siadh Pt is a little dry on exam and has not had much to eat/drink (with contd diuresis outpt) Did not advise fluid restriction to avoid confusion iso already low intake. Asked to take salt tabs. Labs on Saturday Instructions on hyponatremia homecare included in discharge paperwork Assessment & Plan (06/04/2025 6:52 PM CDT): Patient's sodium was 129 on admission. Likely hypovolemic hyponatremia (most recent sodium prior to discharge was 137 on 06/01) Serum osmolality, urine osmolality, urine sodium ordered On maintenance IV fluids Repeat sodium at 9:00 p.m. Assessment & Plan (06/03/2025 8:17 PM CDT): Patient's sodium was 129 on admission. Likely hypovolemic hyponatremia (most recent sodium prior to discharge was 137 on 06/01) Serum osmolality, urine osmolality, urine sodium ordered On maintenance IV fluids Repeat sodium at 9:00 p.m. Fall 06/03/2025 Assessment & Plan (06/05/2025 3:53 PM CDT): Patient had an unwitnessed fall on 06/02 while at home Denies hitting his head. States that he was voiding urine when he felt his legs give out from under him and he fell on his back. He was able to immediately get up and did not pass out. Deferring head CT at this time given the patient's history and lack of new neurological symptoms On fall precautions. PT eval done and recs are for home. Assessment & Plan (06/04/2025 6:52 PM CDT): Patient had an unwitnessed fall on 06/02 while at home Denies hitting his head. States that he was voiding urine when he felt his legs give out from under him and he fell on his back. He was able to immediately get up and did not pass out. Deferring head CT at this time given the patient's history and lack of new neurological symptoms On fall precautions. PT eval done and recs are for home. Assessment & Plan (06/03/2025 8:17 PM CDT): Patient had an unwitnessed fall on 06/02 while at home Denies hitting his head. States that he was voiding urine when he felt his legs give out from under him and he fell on his back. He was able to immediately get up and did not pass out. Deferring head CT at this time given the patient's history and lack of new neurological symptoms On fall precautions. 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 Ophthalmology was consulted and was noted to have diffuse intraretinal hemorrhages and tortuous vessels in the right eye and [id number] intra retinal hemorrhages in the left eye. This is most consistent with a stasis retinopathy and they were planning for outpatient follow-up. The patient notes stable to mildly improved vision. 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 Ophthalmology was consulted and was noted to have diffuse intraretinal hemorrhages and tortuous vessels in the right eye and [id number] intra retinal hemorrhages in the left eye. This is most consistent with a stasis retinopathy and they were planning for outpatient follow-up. The patient notes stable to mildly improved vision. 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 Ophthalmology was consulted and was noted to have diffuse intraretinal hemorrhages and tortuous vessels in the right eye and [id number] intra retinal hemorrhages in the left eye. This is most consistent with a stasis retinopathy and they were planning for outpatient follow-up. The patient notes stable to mildly improved vision. AML (acute myeloblastic leukemia) 05/24/2025 Assessment & Plan (06/05/2025 3:53 PM CDT): Recently diagnosed with FLT3 positive AML on peripheral blood cytogenetics and bone marrow biopsy (05/14-AML, 38% myeloid; antigens expressed are: CD45 (dim), CD7 (subset), CD13, HLA-DR, CD123, CD117, CD33, CD38, HLA-DR, CD4 (dim, subset) Antigens not expressed are: CD16, CD10, CD64, CD34, CD14, CD11b, CD15, CD19, [place], Lambda, CD10, CD5, CD200, CD20, CD19, TCRgd, CD2, CD56, CD5, CD8, CD3, [id number], TdT, cyCD3, cyCD22, cyCD1 On myelomatch trial with azacitidine/venetoclax plus gilteritinib (cycle 1 day 1 on 05/24) Discharged on allopurinol 300 mg daily and continued here. OI prophylaxis with Valtrex. Plan was to switch over to fluconazole as outpatient with concomitant lowering of venetoclax. Maintained on micafungin while inpatient Underwent bone marrow biopsy on cycle 1 day 12-06/04/2025 Did not receive venetoclax/gilteritinib during this admission. Asked to resume when home and follow up with primary onc as outpt. 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 OI prophylaxis with Valtrex. Plan was to switch over to fluconazole as outpatient with concomitant lowering of venetoclax. Maintained on micafungin while inpatient Underwent bone marrow biopsy on cycle 1 day 12-06/04/2025 Holding venetoclax at this time. requested to bring in gilteritinib - likely tmrw Assessment & Plan (06/04/2025 11:28 AM CDT): Recently diagnosed with FLT3 positive AML on peripheral blood cytogenetics and bone marrow biopsy (8/8-AML, 38% myeloid; antigens expressed are: CD45 (dim), CD7 (subset), CD13, HLA-DR, CD123, CD117, CD33, CD38, HLA-DR, CD4 (dim, subset) Antigens not expressed are: CD16, CD10, CD64, CD34, CD14, CD11b, CD15, CD19, [place], Lambda, CD10, CD5, CD200, CD20, CD19, TCRgd, CD2, CD56, CD5, CD8, CD3, [id number], TdT, cyCD3, cyCD22, cyCD1 On myelomatch trial with azacitidine/venetoclax plus gilteritinib (cycle 1 day 1 on 05/24) Discharged on allopurinol 300 mg daily and continued here. OI prophylaxis with Valtrex. Plan was to switch over to fluconazole as outpatient with concomitant lowering of venetoclax. Maintained on micafungin while inpatient Retinal hemorrhage noted on examination of both eyes 05/21/2025 Severe protein-calorie malnutrition 05/13/2025 Assessment & Plan (06/05/2025 3:53 PM CDT): Per RD. Nutritional supplements per RD Assessment & Plan (05/13/2025 7:46 PM CDT): Patient has severely decreased appetite and reports around 20 lbs weight loss recently. -Start matazepine Hyperglycemia 05/13/2025 Assessment & Plan (05/13/2025 7:46 PM CDT): Likely 2/2 steroid use -Continue LDSSI Central loss of vision 05/13/2025 Assessment & Plan (05/13/2025 7:46 PM CDT): Started a few days prior to admission. Possibly from hyperviscosity 2/2 hyperleukocytosis. Stable since admission but has not improved yet. -Consider brain imaging if no improvement. Leukocytosis 05/12/2025 History of drug use disorder 05/12/2025 Assessment & Plan (05/13/2025 7:46 PM CDT): UDS negative during admission -Continue home suboxone. Assessment & Plan (05/13/2025 1:23 PM CDT): States he previously used narcotics and has been on suboxone for many years. -At home, takes quarter of suboxone 8-2mg tablet as needed -Continued suboxone 4-1 mg film daily prn Hyperleukocytosis 05/11/2025 Assessment & Plan (05/13/2025 7:46 PM CDT): Patient presented with hyperleukocytosis and anemia concerning for AML. Admission lab showed WBC 344, Hgb 4.7, Na 125, whole blood K 2.1, uric acid 11.6, fibrinogen 178. S/p rasburicase x2, leukapheresis x2 05/12 and 05/13, PRBC transfusions. Labs improved prior to floor transfer Work-up: -G6PD normal -Peripheral blood smear: -PB cytogenetics: no BCR/ABL rearrangement Plan: -Change BMP, Phos, Whole blood K, uric acid to q12 -Continue allopurinol 300 mg b.i.d. for now -Continue Hydrea 2 g q.8 hours -Continue Solu-Medrol to 40 mg bid -Bone marrow biopsy in a.m. -TTE ordered -PT/OT Assessment & Plan (05/13/2025 1:16 PM CDT): Secondary to AML vs other heme malignancy, possible infectious. Presented to OSH ED with WBC 368 at OSH, Hgb 4.7. Transferred to [facility] for further work up -Continue hydroxyurea 2 gm TID (05/11- ) and methylprednisolone 80 mg BID (05/12- ) -Continued elevated WBC on admit with concern for leukostasis with increased O2 requirements, headache -S/p leukopheresis on 05/12 and 05/13 with improvement in symptoms -F/u acute leukemia workup per HMP -TLS ppx with allopurinol and rasburicase x 2 -Infectious workup with RVP neg, blood cultures NGTD, MRSA neg, UA neg -Receiving empiric antibiotics with Cefepime (05/12- ) and Vancomycin (05/12- ) -F/u HMP recs H/O cerebrovascular accident (CVA) due to emboli sm 05/11/2025 Assessment & Plan (06/05/2025 3:53 PM CDT): Patient has a history of embolic stroke back in 2019 and has virtually no residual symptoms from his stroke On atorvastatin at home. Plavix was held in the prior admission due to low platelets Assessment & Plan (06/04/2025 6:52 PM CDT): Patient has a history of embolic stroke back in 2019 and has virtually no residual symptoms from his stroke On atorvastatin at home. Plavix was held in the prior admission due to low platelets Assessment & Plan (06/03/2025 8:17 PM CDT): Patient has a history of embolic stroke back in 2019 and has virtually no residual symptoms from his stroke On atorvastatin at home. Plavix was held in the prior admission due to low platelets Assessment & Plan (05/13/2025 7:49 PM CDT): Embolic stroke in 2019. Patient does not have any residual symptoms from his stroke. Patient reports he is still taking atorvastatin and plavix at home (confirmed by outpatient cardiology note) -Hold home palvix due to low Plt -Resume home atorvastatin given improvement of AST Assessment & Plan (05/13/2025 1:20 PM CDT): History of embolic stroke in 2019. Initially on statin, plavix and phenytoin. Currently not on any of these medications. -06/2023 brain MRI no acute intracranial abnormalities, moderate old right parietal occipital lobe infarct multiple small infarcts involving the bilateral right temporal as well as frontal lobes -Supportive care History of pacemaker 05/11/2025 Assessment & Plan (05/13/2025 7:46 PM CDT): Hx of SSS s/p pacemaker placement. [employer] Annona Xt 05/03/21. Model [id number]/[id number]. MRI conditional Assessment & Plan (05/11/2025 11:25 PM CDT): Placed dual chamber pacemaker for SSS 04/2021 after embolic stroke in 2019. Per records: [employer] Annona XT COPD (chronic obstructive pulmonary disease) 02/2025 Assessment & Plan (05/13/2025 7:46 PM CDT): Not on any oxygen at home. No wheezing on exam -Continue to monitor for now Assessment & Plan (05/11/2025 11:26 PM CDT): Current smoker, no home oxygen at baseline. -will need PFT's for initial workup HTN (hypertension) 05/11/2025 Assessment & Plan (05/13/2025 7:46 PM CDT): Patient reports that he takes amlodipine at home. -Will hold for now due to normotension Assessment & Plan (05/11/2025 11:24 PM CDT): Hold home meds BPH (benign prostatic hyperplasia) 05/11/2025 Assessment & Plan (05/13/2025 7:46 PM CDT): Patient reports that he was given flomax long time ago but not recently. -Observe urine output Assessment & Plan (05/11/2025 11:26 PM CDT): History not noted but home med includes flomax. Will hold. Anemia 05/11/2025 Assessment & Plan (05/13/2025 7:46 PM CDT): Patient presented with hyperleukocytosis and anemia concerning for AML. Admission lab showed WBC 344, Hgb 4.7, Na 125, whole blood K 2.1, uric acid 11.6, fibrinogen 178. S/p rasburicase x2, leukapheresis x2 05/12 and 05/13, PRBC transfusions. Labs improved prior to floor transfer Work-up: -G6PD normal -Peripheral blood smear: -PB cytogenetics: no BCR/ABL rearrangement Plan: -Change BMP, Phos, Whole blood K, uric acid to q12 -Continue allopurinol 300 mg b.i.d. for now -Continue Hydrea 2 g q.8 hours -Continue Solu-Medrol to 40 mg bid -Bone marrow biopsy in a.m. -TTE ordered -PT/OT Assessment & Plan (05/13/2025 1:19 PM CDT): Likely in the setting of new oncologic diagnosis. -CBC BID -Transfuse to keep Hgb > 7.0 -S/p 4 units PRBC for hospital stay Acute hypoxemic respiratory failure 05/11/2025 Assessment & Plan (05/13/2025 7:49 PM CDT): Patient presented with hypoxemia needing 4L. Likely related to hyperleukocytosis. Upon transfer back to floor patient is on room air and feels comfortable. Work-up: -RVP, HIV, hepatitis panel, blastomyces, cryptococcus, CMV PCR, RPR, Legionella, MRSA swab negative -CXR 05/12: mild bibasilar opacities. No focal consolidation, pleural effusion, ptx. -BCX NGTD Plan: -Continue cefepime 1 g q8h (05/12-). S/p vancomycin (05/12-05/13) Assessment & Plan (05/13/2025 1:18 PM CDT): Secondary to leukostasis vs anemia. Hx of COPD and active smoking -Chest xray with moderate bibasilar patchy lung opacities -Required optiflow yesterday, now titrated to NC O2 2L -Titrate O2 to keep sats 92% -Duonebs every 4 hours prn -Fluid balance even Current Treatment and Therapy Plans - INPT/OUTPT - BMT - [id number] - Regimen 2 - Induction and Consolidation - Azacitidine /Venetoclax / Gilteritinib Days 1 - 28* Plan Start Date:05/23/2025 Plan Provider:Dimple Bailey MD PhD Linked Problems 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 h aving achieved remission (HCC) Treatment Medications Current Day (Day 2 2, Induction Cycle 1 - Planned for 06/14/2025) Next Day (Day 28, Induction Cycle 1 - Planned for 06/20/2025) azaCITIDine (VIDAZA) IVPB in 50 mLINV-[facility] gilteritinib (/[id number])INV-W [facility] venetoclax (/[id number]) No medications scheduled. No medications scheduled. Adult BMT/ONC - Blood and/or Platelet Administration for Outpatient* Plan Start Date:05/27/2025 Plan Provider:Munir Lott MD PhD Linked Problems 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 h aving achieved remission (HCC) Treatment Medications No medications scheduled. Febrile Neutropenia / Immunocompromised Patient First Dose Antibiotic Orders (Outpatient Adult)* Plan Start Date:06/03/2025 Plan Provider:Munir Lott MD PhD Linked Problems 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 h aving achieved remission (HCC) Treatment Medications No medications scheduled. IV Maintenance Therapy Plan* Plan Start Date:05/27/2025 Plan Provider:Munir Lott MD PhD Linked Problems 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 h aving achieved remission (HCC) Treatment Medications No medications scheduled. Oncology Electrolyte Replacement ([facility])* Plan Start Date: 06/03/2025 Plan Provider:Munir Lott MD PhD Linked Problems 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 h jose achieved remission (HCC) Treatment Medications No medications scheduled. Other Current Plans BMT Adult Blood and Platelet Administration for Inpatient* Plan Start Date: 05/14/2025 Plan Provider:Munir Lott MD PhD Linked Problems Anemia, unspecified type Treatment Medications No medications scheduled. Past Treatment and Therapy Plans No past plan information found. Resolved Problems Problem Noted Date Diagnosed Date Resolved Date Hypokalemia 06/03/2025 06/05/2025 Assessment & Plan (06/05/2025 3:53 PM CDT): Patient presented with potassium of 2.2 Recently discharged with Lasix 40 b.i.d. and potassium of 20 mEq daily Patient continued taking both with very minimal oral intake Likely due to diuresis and poor intake Status post 40 mEq KCl p.o. in cc and IV 80 mEq KCL here Potassium replaced. Discharged on potassium supplements and recommended to follow potassium-rich diet Instructions added to discharge paperwork and has labs pending on Saturday Assessment & Plan (06/04/2025 6:52 PM CDT): Patient presented with potassium of 2.2 Recently discharged with Lasix 40 b.i.d. and potassium of 20 mEq daily Patient continued taking both with very minimal oral intake Likely due to diuresis and poor intake Status post 40 mEq KCl p.o. in cc and IV 80 mEq KCL here Repeat potassium ordered On telemetry Assessment & Plan (06/03/2025 8:17 PM CDT): Patient presented with potassium of 2.2 Recently discharged with Lasix 40 b.i.d. and potassium of 20 mEq daily Patient continued taking both with very minimal oral intake Likely due to diuresis and poor intake Status post 40 mEq KCl p.o. in cc and IV 80 mEq KCL here Repeat potassium ordered On telemetry YUNG (acute kidney injury) 06/03/2025 Assessment & Plan (06/05/2025 3:53 PM CDT): Patient presented with creatinine of 1.59 which is likely due to the concomitant use of diuretics with poor oral intake. Lower suspicion of hyperuricemia causing YUNG with most recent uric acid being 6.4 Treated with iv fluids and YUNG improved. Cr on discharge is 1. Stopped diuretics on discharge. Assessment & Plan (06/04/2025 6:52 PM CDT): Patient presented with creatinine of 1.59 which is likely due to the concomitant use of diuretics with poor oral intake. Lower suspicion of hyperuricemia causing YUNG with most recent uric acid being 6.4 on maintenance LR and holding diuretics BMP daily Assessment & Plan (06/03/2025 8:17 PM CDT): Patient presented with creatinine of 1.59 which is likely due to the concomitant use of diuretics with poor oral intake. Lower suspicion of hyperuricemia causing YUNG with most recent uric acid being 6.4 on maintenance LR and holding diuretics BMP daily Hypernatremia 05/11/2025 05/12/2025 Assessment & Plan (05/11/2025 11:27 PM CDT): OSH ED Na level of 153. -will reassess and treat as appropriate
--- OUTSIDE RECORDS SUMMARY | 2025-06-11 10:48 | XMS_ITS | Clinical Summary ---
Author Organization [facility] Address [address] [place] [address] Care Team Providers Care See Wheeler Name Role Phone Nohelia Duval NP Primary Care Provider [phone] Tania Lott MD PhD Unavailable [phone] Allergies No known active allergies Medications [facility] gilteritinib (/MM1 OA-EA02) 40 mg tablet Take 2 tablets (80 mg total) by mouth daily Take with a glass of water, at about the same time each day, with or without food. If a dose is missed, it may be made up within 12 hours of the scheduled administration time. Avoid grapefruit products, [place] oranges, and herbal products. Store at room temperature Active valACYclovir (VALTREX) 500 mg tabletIndication s:Prophylaxis, Medical Take 1 tablet (500 mg total) by mouth daily 30 tablet Active famotidine (PEPCID) 40 mg tabletIndication s: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 having achieved remission (HCC) Take 1 tablet (40 mg total) by mouth daily 30 tablet 11 025 2025 Active ergocalciferol (VITAMIN D) 50,000 unit capsule Take 1 capsule (50,000 Units total) by mouth once a week 12 capsule 025 2024 Active buprenorphine-na loxone (SUBOXONE) 8-2 mg per SL tablet Place 1 tablet under the tongue daily 30 tablet 025 2024 Active atorvastatin (LIPITOR) 40 mg tablet Take 1 tablet (40 mg total) by mouth nightly 30 tablet 025 2024 Active allopurinoL (ZYLOPRIM) 300 mg tabletIndication s:Chemotherapy-I nduced Hyperuricemia Take 1 tablet (300 mg total) by mouth daily 30 tablet 025 2024 Active INV-[facility] venetoclax (2024-03-137/MM1 OA-EA02) 100 mg tabletIndication s: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 having achieved remission (HCC) Take 2 tablets (200 mg total) by mouth daily Take with a glass of water, at about the same time each day, with food. If a dose is missed, it may be made up within 8 hours of the scheduled administration time. Vomited doses may not be made up. Avoid grapefruit products, [place] oranges, and herbal products. Store at room temperature 025 2024 Active budesonide-formo teroL (SYMBICORT) 160-4.5 mcg/actuation inhaler Inhale 2 puffs 2 (two) times a day Active fluticasone propion-salmeter oL (Advair HFA) 230-21 mcg/actuation inhaler Inhale 2 puffs 2 (two) times a day 023 Active polyethylene glycol (MIRALAX) 17 gram/dose bulk powderIndication s:constipation Take 17 g by mouth daily as needed (constipation) For constipation 289 g 025 Active sodium chloride 1 gram tablet Take 1 tablet (1 g total) by mouth 2 (two) times a day 60 tablet 025 2024 Active potassium chloride ER (KLOR-CON) 20 mEq CR tablet Take 1 tablet (20 mEq total) by mouth daily for 3 days 3 tablet 025 Active senna (SENOKOT) 8.6 mg tablet Take 1 tablet by mouth daily as needed for constipation (if miralax does not work) 60 tablet 025 Active cefdinir (OMNICEF) 300 mg capsuleIndicatio ns: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 having achieved remission (HCC) Take 1 capsule (300 mg total) by mouth every 12 (twelve) hours 60 capsule 3 025 Active INV-[facility] venetoclax (2023-06-137/MM1 OA-EA02) 10 mg tablet Take 10 tablets (100 mg total) by mouth as directed Take one tablet (100 mg) by mouth on Day 1, two tablets (200 mg) on Day 2, then four tablets (400 mg) once daily on Days 3-28. Take with a glass of water, at about the same time each day, with food. If a dose is missed, it may be made up within 8 hours of the scheduled administration time. Vomited doses may not be made up. Avoid grapefruit products, [place] oranges, and herbal products. Store at room temperature. 2024 Discontinued(S top Taking at Discharge) potassium chloride ER (KLOR-CON) 20 mEq CR tablet Take 1 tablet (20 mEq total) by mouth 2 (two) times a day 60 tablet 025 2024 Discontinued polyethylene glycol (MIRALAX) 17 gram/dose bulk powderIndication s:constipation Take 17 g by mouth once for 1 dose For constipation 17 g 025 2024 Discontinued furosemide (LASIX) 40 mg tablet Take 1 tablet (40 mg total) by mouth 2 (two) times a day 60 tablet 025 2024 Discontinued(S top Taking at Discharge) amLODIPine (NORVASC) 10 mg tablet Take 1 tablet (10 mg total) by mouth daily 2024 Discontinued(S top Taking at Discharge) clopidogreL (PLAVIX) 75 mg tablet Take 1 tablet (75 mg total) by mouth daily 023 2024 Discontinued(S top Taking at Discharge) FLUoxetine (PROzac) 40 mg capsule Take 1 capsule (40 mg total) by mouth daily 023 2024 Discontinued(S top Taking at Discharge) naloxone (NARCAN) 4 mg/actuation spray,non-aeroso l Administer 1 spray into affected nostril(s) as needed 023 2024 Discontinued(S top Taking at Discharge) tamsulosin (FLOMAX) 0.4 mg extended release capsule Take 1 capsule (0.4 mg total) by mouth daily 2024 Discontinued(S top Taking at Discharge) traZODone (DESYREL) 100 mg tablet Take 1 tablet (100 mg total) by mouth daily 023 2024 Discontinued(S top Taking at Discharge) ARIPiprazole (ABILIFY) 5 mg tablet Take 1 tablet (5 mg total) by mouth daily 2024 Discontinued(S top Taking at Discharge) Active Problems Patient Care Coordination No te Formatting of this note is d ifferent from the original. P Inpatient Care Coordination Diagnosis New AML - [...] [x] 05/31/25- Gave c/s letter, maps to [facility] and [facility]. Gave yellow when to call sheet with phone # and after hours # Gave family info document, pt seems reluctant to fill it out. Told him to think about it and bring it to consult on 06/03 with him if he decides to give their info Discharge Disposition []SNF/Rehab: [][facility] [x]Home [place] [address] - distance from [address] Caregiver: Requests Sent to []Case Management: []MAs: []Pharmacy PA team: Specialty Medications -Aroldo - study provides -Gilt - study provides Post-Discharge Follow-Up Venous Access & Care TBD Local Oncologist Contact Name: Nurse: Phone: Fax: Supportive care plan Location Scheduled for Line Care Transfusions Infusion Appts Other Orders H30 [] [place] [] Locally at ____ [x] [] frequency [] for & frequency ____ [x] [facility] CONSULT Lab/ CONSULT - 06/03 Lab/ EKG/ BMBx -06/08 per VIS Follow-Up [] Restaging: ____ [] Other pending items: 05/28/25- Left VM at [facility] in [place], [place] asking for CB about supportive care [...] tortuous vessels in the right eye and gbqn-zf-kwkxwbsw intra retinal hemorrhages in the left eye. [...] tortuous vessels in the right eye and eslq-xv-ydvgalub intra retinal hemorrhages in the left eye. [...] tortuous vessels in the right eye and xiae-rb-cabkflxx intra retinal hemorrhages in the left eye. [...] CD10, CD64, CD34, CD14, CD11b, CD15, CD19, [place], Lambda, CD10, CD5, CD200, CD20, CD19, TCRgd, CD2, CD56, CD5, CD8, CD3, osLF72i, TdT, cyCD3, cyCD22, cyCD1 On myelomatch trial [...] CD10, CD64, CD34, CD14, CD11b, CD15, CD19, [place], Lambda, CD10, CD5, CD200, CD20, CD19, TCRgd, CD2, CD56, CD5, CD8, CD3, [id number], TdT, cyCD3, cyCD22, cyCD1 On myelomatch trial [...] CD10, CD64, CD34, CD14, CD11b, CD15, CD19, [place], Lambda, CD10, CD5, CD200, CD20, CD19, TCRgd, CD2, CD56, CD5, CD8, CD3, [id number], TdT, cyCD3, cyCD22, cyCD1 On myelomatch trial [...] 368 at OSH, Hgb 4.7. Transferred to [facility] for further work up -Continue hydroxyurea 2 gm TID (05/11- ) and methylprednisolone 80 mg BID (05/12- ) -Continued elevated WBC on admit with concern for leukostasis with increased O2 requirements, headache -S/p leukopheresis on 05/12 and 05/13 with improvement in symptoms -F/u acute leukemia workup per [facility] -TLS ppx with allopurinol and rasburicase x 2 -Infectious workup with RVP neg, blood cultures NGTD, MRSA neg, UA neg -Receiving empiric antibiotics with Cefepime (05/12- ) and Vancomycin (05/12- ) -F/u [facility] recs H/O cerebrovascular accident (CVA) due to [...] (05/13/2025 7:49 PM CDT): Embolic stroke in 2020. Patient does not have any residual symptoms from his stroke. Patient reports he is still taking atorvastatin and plavix at home (confirmed by outpatient cardiology note) -Hold home palvix due to low Plt -Resume home atorvastatin given improvement of AST Assessment & Plan (05/13/2025 1:20 PM CDT): History of embolic stroke in 2020. Initially on statin, plavix and phenytoin. Currently not on any of these medications. -06/2023 brain MRI no acute intracranial abnormalities, moderate old right parietal occipital lobe infarct multiple small infarcts involving the bilateral right temporal as well as frontal lobes -Supportive care History of pacemaker 05/11/2025 Assessment & Plan (05/13/2025 7:46 PM CDT): Hx of SSS s/p pacemaker placement. Med[employer]ics Katie Xt 05/03/21. Model [id number]/[id number]. MRI conditional Assessment & Plan (05/11/2025 11:25 PM CDT): Placed dual chamber pacemaker for SSS 04/2021 after embolic stroke in 2019. Per records: Pulse Generator Medtronic [place] XT COPD (chronic obstructive pulmonary disease) 02/2025 [...] every 4 hours prn -Fluid balance even Resolved Problems Problem Noted Date Diagnosed Date [...] 153. -will reassess and treat as appropriate Encounters Date Type Department Care Team Description 06/10/2025 9:00 AM CDT Infusion [facility] - Infusion [address] [place] [address] 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 having achieved remission (HCC) 06/10/2025 7:30 AM CDT Infusion [facility] - Infusion [address] [place] [address] 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 having achieved remission (HCC) 06/10/2025 6:30 AM CDT Clinical Support [facility] - Lab Collection [address] [place] [address] 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 having achieved remission (HCC) 06/08/2025 8:00 AM CDT Clinical Support [facility] Medicine Oncology [address] 5 [place] [address] 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 having achieved remission (HCC) 06/08/2025 7:15 AM CDT Clinical Support [facility] - Lab Collection [address] [place] [address] 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 having achieved remission (HCC) 06/08/2025 Telephone [facility] Medicine Bone Marrow Transplant [address] [facility] Floor 6 [place] [address] Tania Doyle RN 06/08/2025 Orders Only [facility] Medicine Bone Marrow Transplant [address] [place] [address] Tania Lott MD PhD 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 having achieved remission (HCC) (Primary Dx) 06/04/2025 Orders Only [facility] Medicine Bone Marrow Transplant [address] [place] [phone] Tania Lott MD PhD 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 having achieved remission (HCC) (Primary Dx) 06/04/2025 Orders Only [address] [phone] Evelyn Keene 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 having achieved remission (HCC) (Primary Dx) 06/03/2025 11:07 AM CDT - 06/05/2025 5:25 PM CDT Hospital Encounter [address] [phone] Tania Lott MD PhD Carlene Leon MD Menon, Priya, MD Anemia, unspecified type (Primary Dx) Discharge Disposition: Discharge to home or self care 06/03/2025 9:00 AM CDT Infusion [facility] - Infusion [address] [place] [address] 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 having achieved remission (HCC) (Primary Dx) 06/03/2025 8:00 AM CDT Office Visit [facility] Medicine Bone Marrow Transplant [address] [place] [phone] Tania Lott MD PhD 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 having achieved remission (HCC) (Primary Dx) 06/03/2025 6:45 AM CDT Lab [facility] - Lab Collection [address] [place] [address] 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 having achieved remission (HCC) 06/02/2025 Telephone [facility] Medicine Ophthalmology [address] [place] [address] [place] [phone] Angélica Arreguin MD 05/28/2025 Telephone [facility] Medicine Bone Marrow Transplant [address] [place] [phone] Natacha Rodriguez RN 05/27/2025 Orders Only [facility] Medicine Bone Marrow Transplant [address] [place] [phone] Tania Lott MD PhD 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 having achieved remission (HCC) (Primary Dx) 05/26/2025 Orders Only [facility] Bone Marrow Transplant [address] [phone] Tania Lott MD PhD 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 having achieved remission (HCC) (Primary Dx) 05/24/2025 Research Med Pick-Up/CTRU Rn Endoscopy [facility] - Infusion [address] [address] Elena Shepherd, [facility] 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 having achieved remission (HCC) (Primary Dx) 05/24/2025 Orders Only [address] [phone] Dimple Bailey MD PhD 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 having achieved remission (HCC) (Primary Dx) 05/24/2025 Orders Only [address] [phone] Jose Rodriguez, [facility] 05/21/2025 Ophth Exam Ophthalmology Fleecs, Farzaneh Gomez MD 05/18/2025 1:30 PM CDT Clinical Support [facility] [address] [phone] Xnea Carl, PhD 05/18/2025 9:30 AM CDT Ancillary Procedure [facility] Vascular Lab IP [address] [facility] [address] [place] [address] 05/18/2025 12:40 AM CDT - 05/18/2025 11:59 PM CDT Hospital Encounter [facility] [address] [place] [address] Discharge Disposition: Discharge to home or self care 05/17/2025 Results Follow-Up Bone Marrow Transplant Josh Pereira MD FLT3 Mutation Detection by PCR, Cytogenetics Bone marrow, Potassium, whole blood 05/12/2025 1:36 AM CDT - 06/01/2025 5:45 PM CDT Hospital Encounter [address] [phone] Khoa Cosme MD Lonjers, Zachary Thomas, MD Dipersio, John F., MD PhD Dimple Bailey MD PhD Leukocytosis, unspecified type (Primary Dx); Hyperleukocytosis; Anemia, unspecified type; Retinal hemorrhage noted on examination of both eyes [H35.63]; 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 having achieved remission (HCC) Discharge Disposition: Discharge to home or self care 05/11/2025 Documentation [facility] Medicine Oncology [address] [facility] Floor 6 [place] [address] Polina Peña MD from Last 3 Months Immunizations Immunization Administration Dates Next Due TD Preservative Free 12/17/2019 Surgical History Surgery Date Site/Laterality Comments LUMBAR PUNCTURE WO INJECTION, DIAGNOSTIC 04/07/2020 N/A Social History Tobacco Use Types Packs/Day Years [...] 06/05/2025 How often do you attend chur or confucianism services? Never 06/05/2025 Do you belong to any clubs o r organizations such as jew groups, unions, fraternal or athletic groups, or [...] any time in the past 12 [facility], were you homeless or living in a care home (including now)? No 06/05/2025 [facility] Utilities Answer Date Recorded In the past [...] on file Sexual Orientation Not on file Obstetrics History Last Filed Vital Signs Vital Sign Reading Time Taken Comments Blood Pressure 97/61 06/10/2025 7:42 AM CDT Pulse 63 06/10/2025 7:41 AM CDT Temperature 36.7 C (98 F) 06/10/2025 7:41 AM CDT Respiratory Rate 18 06/10/2025 7:41 AM CDT Oxygen Saturation 98% 06/10/2025 7:41 AM CDT Inhaled Oxygen Concentration - - Weight 80.5 kg (177 lb 7.5 oz) 06/04/2025 8:55 P M CDT Height 180 cm (5' 10.87) 06/03/2025 11:30 AM CD T Body Mass Index 24.85 06/03/2025 11:30 AM CDT Plan of Treatment Health Maintenance Due Date Last Done Comments Colon Cancer Screening-Colonoscopy 1967 Prostate Cancer Screening-PSA 1967 Hepatitis B Screening 1985 Regular Well Visit/Exam 18-64 1985 Pneumococcal vaccine <65 (1 of 2 - PCV) 1986 Zoster Vaccine (1 of 2) 1986 DTaP/Tdap/Td Vaccine (1 - Tdap) 12/18/2019 0 Covid-19 Vaccine (3 - Pfizer risk series) 07/20/2021 06/22/2021, 06/01/2021 Influenza Vaccine (#1) 2025 Depression Screening 06/03/2026 06/03/2025, 05/11/20 25 Hepatitis C Screening Completed 05/12/2025 Medical Devices Implanted Type Area Car Washer Device Identifier Shelf Expiration Date Model / Serial / Lot Medtronic Capsurefix Novus Mri Ra Lead 4076-52- 021 Implanted:04/07 (Quantity not on file) Lead Heart Medtronic Cardiac Rhythm Mgmt 4076-52 / [id number] / Medtronic Capsurefix Novus Mri Rv Lead 4076-58- 021 Implanted:04/07 (Quantity not on file) Lead Heart Medtronic Cardiac Rhythm Mgmt 4076-58 / [id number] / Medtronic Katie Xt Dr Mri Ppm [id number]/28/20 21 Implanted:04/07 (Quantity not on file) Pacemaker Chest Wall Medtronic Cardiac Rhythm Mgmt [id number] / [id number] / Procedures Procedure Name Priority Date/Time Associated Diagnosis [...] not having achieved remission (HCC) MANUAL DIFFERENTIAL STAT 06/08/2025 8 :12 AM CDT 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 having achieved remission (HCC) TYPE AND SCREEN STAT 06/08/2025 8:12 AM CDT 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 having achieved remission (HCC) CBC WITH AUTO DIFFERENTIAL STAT 06/08/2025 8:12 AM CDT 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 having achieved remission (HCC) EGFR Routine 06/08/2025 8:02 AM CDT 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 having achieved remission (HCC) COMPREHENSIVE METABOLIC PANEL Routine 06/08/2025 8:02 AM CDT 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 having achieved remission (HCC) MAGNESIUM Routine 06/08/2025 8:02 AM CDT 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 having achieved remission (HCC) URIC ACID Routine 06/08/2025 8:02 AM CDT 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 having achieved remission (HCC) CREATINE KINASE (CK), TOTAL Routine 06/08/2025 8:02 AM CDT 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 having achieved remission (HCC) LACTATE DEHYDROGENASE Routine 06/08/2025 8:02 AM CDT 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 having achieved remission (HCC) EGFR STAT 06/05/2025 2:23 PM CDT BASIC METABOLIC PANEL STAT 06/05/2025 2:23 PM CDT TRANSFUSE RED BLOOD CELLS Timed 06/05/2025 4:44 AM CDT Anemia, unspecified type PREPARE RBC Timed 06/05/2025 1:43 AM CDT Anemia, unspecified type IMMATURE PLATELET FRACTION Routine 06/05/2025 12:32 AM CDT EGFR Routine 06/05/2025 12:32 AM CDT DIFFERENTIAL AUTO Routine 06/05/2025 12:32 AM CDT BASIC METABOLIC PANEL Routine 06/05/2025 12:32 AM CDT PHOSPHORUS Routine 06/05/2025 12:32 AM CDT CBC WITH AUTO DIFFERENTIAL Routine 06/05/2025 12:32 AM CDT EGFR Routine 06/04/2025 4:40 PM CDT BASIC METABOLIC PANEL Routine 06/04/2025 4:40 PM CDT FLOW LEUKEMIA/LYMPHOMA Timed 12:40 PM CDT SURGICAL PATHOLOGY Routine 06/04/2025 11:47 AM CDT XR CHEST 1 VIEW ED Urgent/IP Urgent 06/04/2025 10:40 AM CDT CORTISOL STAT 06/04/2025 9:51 AM CDT TRANSFUSE PLATELETS Timed 06/04/2025 6 :12 AM CDT Anemia, unspecified type PREPARE PLATELETS Timed 06/04/2025 4:3 0 AM CDT Anemia, unspecified type IMMATURE PLATELET FRACTION Routine 06/04/2025 3:59 AM CDT EGFR Routine 06/04/2025 3:59 AM CDT DIFFERENTIAL AUTO Routine 06/04/2025 3:5 9 AM CDT BASIC METABOLIC PANEL Routine 06/04/2025 3:59 AM CDT PHOSPHORUS Routine 06/04/2025 3:59 AM CDT CBC WITH AUTO DIFFERENTIAL Routine 06/04/2025 3:59 AM CDT SODIUM, URINE, RANDOM Routine 06/04/2025 3:27 AM CDT OSMOLALITY, URINE Routine 06/04/2025 3:2 7 AM CDT URINALYSIS AND REFLEX TO MICROSCOPIC AND CULTURE Routine 06/04/2025 3:27 AM CDT EGFR Timed 06/03/2025 9:54 PM CDT URIC ACID Timed 06/03/2025 9:54 PM CDT OSMOLALITY, BLOOD Timed 06/03/2025 9:5 4 PM CDT BASIC METABOLIC PANEL Timed 06/03/2025 9:54 PM CDT SEPSIS LACTATE WITH REFLEX STAT 06/03/2025 5:42 PM CDT ECG 12-LEAD STAT 06/03/2025 3:32 PM CDT RESPIRATORY PATHOGEN PANEL Routine 06/03/2025 3:22 PM CDT BLOOD CULTURE Routine 06/03/2025 9:01 AM CDT 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 having achieved remission (HCC) SEPSIS LACTATE WITH REFLEX STAT 06/03/2025 9:00 AM CDT 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 having achieved remission (HCC) BLOOD CULTURE Routine 06/03/2025 9:00 AM CDT 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 having achieved remission (HCC) EGFR STAT 06/03/2025 7:08 AM CDT 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 having achieved remission (HCC) CRITICAL RESULT CALLBACK CHEMISTRY STAT 06/03/2025 7:08 AM CDT 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 having achieved remission (HCC) COMPREHENSIVE METABOLIC PANEL STAT 06/03/2025 7:08 AM CDT 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 having achieved remission (HCC) LACTATE DEHYDROGENASE STAT 06/03/2025 7:08 AM CDT 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 having achieved remission (HCC) CMV, IGG STAT 06/03/2025 7:08 AM CDT 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 having achieved remission (HCC) MANUAL DIFFERENTIAL STAT 06/03/2025 7 :06 AM CDT 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 having achieved remission (HCC) CBC WITH AUTO DIFFERENTIAL STAT 06/03/2025 7:06 AM CDT 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 having achieved remission (HCC) TYPE AND SCREEN STAT 06/03/2025 7:06 AM CDT 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 having achieved remission (HCC) AR REMOVAL SUTURES/MATHEW NOT REQUIRING ANESTHESIA Routine 06/01/2025 3:39 PM CDT 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 having achieved remission (HCC) EGFR Timed 06/01/2025 11:41 AM CDT MAGNESIUM Timed 06/01/2025 11:41 AM CDT COMPREHENSIVE METABOLIC PANEL Timed 06/01/2025 11:41 AM CDT IMMATURE PLATELET FRACTION Routine 06/01/2025 2:05 AM CDT EGFR Routine 06/01/2025 2:05 AM CDT DIFFERENTIAL AUTO Routine 06/01/2025 2:0 5 AM CDT POTASSIUM, WHOLE BLOOD Timed 2:05 AM CDT CYSTATIN C Routine 06/01/2025 2:05 AM CDT BASIC METABOLIC PANEL Routine 06/01/2025 2:05 AM CDT URIC ACID Routine 06/01/2025 2:05 AM CDT PHOSPHORUS Routine 06/01/2025 2:05 AM CDT LACTATE DEHYDROGENASE Routine 06/01/2025 2:05 AM CDT CBC WITH AUTO DIFFERENTIAL Routine 06/01/2025 2:05 AM CDT POTASSIUM, WHOLE BLOOD Timed 7:23 PM CDT EGFR Timed 05/31/2025 7:19 PM CDT 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 having achieved remission (HCC) URIC ACID Timed 05/31/2025 7:19 PM CDT 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 having achieved remission (HCC) PHOSPHORUS Timed 05/31/2025 7:19 PM CDT 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 having achieved remission (HCC) BASIC METABOLIC PANEL Timed 05/31/2025 7:19 PM CDT 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 having achieved remission (HCC) POTASSIUM, WHOLE BLOOD Timed 1:50 PM CDT POTASSIUM, WHOLE BLOOD Timed 9:38 AM CDT ECG 12-LEAD STAT 05/31/2025 5:38 AM CDT CRITICAL RESULT CALLBACK CHEMISTRY STAT 05/31/2025 4:39 AM CDT POTASSIUM, WHOLE BLOOD STAT 4:39 AM CDT MAGNESIUM Routine 05/31/2025 3:26 AM CDT EGFR Routine 05/31/2025 3:26 AM CDT CRITICAL RESULT CALLBACK CHEMISTRY Routine 05/31/2025 3:26 AM CDT IMMATURE PLATELET FRACTION Routine 05/31/2025 3:26 AM CDT DIFFERENTIAL AUTO Routine 05/31/2025 3:2 6 AM CDT FIBRINOGEN Timed 05/31/2025 3:26 AM CDT PROTIME-INR Timed 05/31/2025 3:26 AM CDT APTT Timed 05/31/2025 3:26 AM CDT CYSTATIN C Routine 05/31/2025 3:26 AM CDT URIC ACID Routine 05/31/2025 3:26 AM CDT PHOSPHORUS Routine 05/31/2025 3:26 AM CDT LACTATE DEHYDROGENASE Routine 05/31/2025 3:26 AM CDT COMPREHENSIVE METABOLIC PANEL Routine 05/31/2025 3:26 AM CDT TYPE AND SCREEN Timed 05/31/2025 3:26 AM CDT CBC WITH AUTO DIFFERENTIAL Routine 05/31/2025 3:26 AM CDT EGFR Timed 05/30/2025 5:06 PM CDT 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 having achieved remission (HCC) URIC ACID Timed 05/30/2025 5:06 PM CDT 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 having achieved remission (HCC) PHOSPHORUS Timed 05/30/2025 5:06 PM CDT 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 having achieved remission (HCC) BASIC METABOLIC PANEL Timed 05/30/2025 5:06 PM CDT 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 having achieved remission (HCC) BLOOD SMEAR REVIEW Routine 05/30/2025 4: 28 AM CDT IMMATURE PLATELET FRACTION Routine 05/30/2025 4:28 AM CDT CREATINE KINASE (CK), TOTAL Routine 05/30/2025 4:28 AM CDT EGFR Routine 05/30/2025 4:28 AM CDT DIFFERENTIAL AUTO Routine 05/30/2025 4:2 8 AM CDT CYSTATIN C Routine 05/30/2025 4:28 AM CDT BASIC METABOLIC PANEL Routine 05/30/2025 4:28 AM CDT URIC ACID Routine 05/30/2025 4:28 AM CDT PHOSPHORUS Routine 05/30/2025 4:28 AM CDT LACTATE DEHYDROGENASE Routine 05/30/2025 4:28 AM CDT CBC WITH AUTO DIFFERENTIAL Routine 05/30/2025 4:28 AM CDT EGFR Timed 05/29/2025 5:01 PM CDT 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 having achieved remission (HCC) URIC ACID Timed 05/29/2025 5:01 PM CDT 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 having achieved remission (HCC) PHOSPHORUS Timed 05/29/2025 5:01 PM CDT 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 having achieved remission (HCC) BASIC METABOLIC PANEL Timed 05/29/2025 5:01 PM CDT 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 having achieved remission (HCC) MANUAL DIFFERENTIAL Routine 05/29/2025 4 :13 AM CDT EGFR Routine 05/29/2025 4:13 AM CDT CYSTATIN C Routine 05/29/2025 4:13 AM CDT BASIC METABOLIC PANEL Routine 05/29/2025 4:13 AM CDT URIC ACID Routine 05/29/2025 4:13 AM CDT PHOSPHORUS Routine 05/29/2025 4:13 AM CDT LACTATE DEHYDROGENASE Routine 05/29/2025 4:13 AM CDT CBC WITH AUTO DIFFERENTIAL Routine 05/29/2025 4:13 AM CDT MAGNESIUM Routine 05/29/2025 4:13 AM CDT EGFR Timed 05/28/2025 4:55 PM CDT 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 having achieved remission (HCC) URIC ACID Timed 05/28/2025 4:55 PM CDT 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 having achieved remission (HCC) PHOSPHORUS Timed 05/28/2025 4:55 PM CDT 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 having achieved remission (HCC) BASIC METABOLIC PANEL Timed 05/28/2025 4:55 PM CDT 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 having achieved remission (HCC) MANUAL DIFFERENTIAL Routine 05/28/2025 4 :03 AM CDT EGFR STAT 05/28/2025 4:03 AM CDT 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 having achieved remission (HCC) URIC ACID STAT 05/28/2025 4:03 AM CDT 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 having achieved remission (HCC) MAGNESIUM STAT 05/28/2025 4:03 AM CDT 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 having achieved remission (HCC) COMPREHENSIVE METABOLIC PANEL STAT 05/28/2025 4:03 AM CDT 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 having achieved remission (HCC) CYSTATIN C Routine 05/28/2025 4:03 AM CDT URIC ACID Routine 05/28/2025 4:03 AM CDT PHOSPHORUS Routine 05/28/2025 4:03 AM CDT LACTATE DEHYDROGENASE Routine 05/28/2025 4:03 AM CDT CBC WITH AUTO DIFFERENTIAL Routine 05/28/2025 4:03 AM CDT MAGNESIUM Routine 05/28/2025 4:03 AM CDT EGFR Timed 05/27/2025 5:20 PM CDT 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 having achieved remission (HCC) URIC ACID Timed 05/27/2025 5:20 PM CDT 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 having achieved remission (HCC) PHOSPHORUS Timed 05/27/2025 5:20 PM CDT 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 having achieved remission (HCC) BASIC METABOLIC PANEL Timed 05/27/2025 5:20 PM CDT 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 having achieved remission (HCC) CYSTATIN C Routine 05/27/2025 4:37 PM CDT US KIDNEY COMPLETE IP Routine 05/27/2025 10:40 AM CDT IMMATURE PLATELET FRACTION Routine 05/27/2025 3:20 AM CDT DIFFERENTIAL AUTO Routine 05/27/2025 3:2 0 AM CDT CBC WITH AUTO DIFFERENTIAL Routine 05/27/2025 3:20 AM CDT EGFR Routine 05/27/2025 2:57 AM CDT MANUAL DIFFERENTIAL Routine 05/27/2025 2 :57 AM CDT CALCIUM,IONIZED, WHOLE BLOOD Routine 05/27/2025 2:57 AM CDT URIC ACID Routine 05/27/2025 2:57 AM CDT PHOSPHORUS Routine 05/27/2025 2:57 AM CDT LACTATE DEHYDROGENASE Routine 05/27/2025 2:57 AM CDT COMPREHENSIVE METABOLIC PANEL Routine 05/27/2025 2:57 AM CDT TYPE AND SCREEN Timed 05/27/2025 2:57 AM CDT CBC WITH AUTO DIFFERENTIAL Routine 05/27/2025 2:57 AM CDT MAGNESIUM Routine 05/27/2025 2:57 AM CDT EGFR Timed 05/26/2025 2:03 PM CDT 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 having achieved remission (HCC) URIC ACID Timed 05/26/2025 2:03 PM CDT 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 having achieved remission (HCC) PHOSPHORUS Timed 05/26/2025 2:03 PM CDT 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 having achieved remission (HCC) BASIC METABOLIC PANEL Timed 05/26/2025 2:03 PM CDT 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 having achieved remission (HCC) PRO B-TYPE NATRIURETIC PEPTIDE Routine 05/26/2025 12:40 AM CDT GAMMA GT Routine 05/26/2025 12:40 AM CDT VITAMIN D 25 HYDROXY Routine 05/26/2025 12:40 AM CDT COMPREHENSIVE METABOLIC PANEL Routine 05/26/2025 12:40 AM CDT EGFR Routine 05/26/2025 12:40 AM CDT MANUAL DIFFERENTIAL Routine 05/26/2025 12:40 AM CDT IMMATURE PLATELET FRACTION Routine 05/26/2025 12:40 AM CDT PTH Timed 05/26/2025 12:40 AM CDT URIC ACID Routine 05/26/2025 12:40 AM CDT PHOSPHORUS Routine 05/26/2025 12:40 AM CDT LACTATE DEHYDROGENASE Routine 05/26/2025 12:40 AM CDT CBC WITH AUTO DIFFERENTIAL Routine 05/26/2025 12:40 AM CDT MAGNESIUM Routine 05/26/2025 12:40 AM CDT EGFR Timed 05/25/2025 8:18 PM CDT 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 having achieved remission (HCC) URIC ACID Timed 05/25/2025 8:18 PM CDT 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 having achieved remission (HCC) PHOSPHORUS Timed 05/25/2025 8:18 PM CDT 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 having achieved remission (HCC) BASIC METABOLIC PANEL Timed 05/25/2025 8:18 PM CDT 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 having achieved remission (HCC) EGFR Timed 05/25/2025 3:36 PM CDT 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 having achieved remission (HCC) URIC ACID Timed 05/25/2025 3:36 PM CDT 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 having achieved remission (HCC) PHOSPHORUS Timed 05/25/2025 3:36 PM CDT 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 having achieved remission (HCC) BASIC METABOLIC PANEL Timed 05/25/2025 3:36 PM CDT 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 having achieved remission (HCC) UREA NITROGEN, URINE, RANDOM STAT 05/25/2025 1:14 PM CDT SODIUM, URINE, RANDOM STAT 05/25/2025 1:14 PM CDT ALBUMIN CREATININE RATIO, URINE Routine 05/25/2025 1:14 PM CDT PROTEIN / CREATININE RATIO, URINE, RANDOM STAT 05/25/2025 1:14 PM CDT URINALYSIS AND REFLEX TO MICROSCOPIC AND CULTURE STAT 05/25/2025 1:14 PM CDT CYSTATIN C Routine 05/25/2025 12:51 AM CDT EXTRA SLIDE PREPARATION Routine 05/25/2025 12:51 AM CDT MANUAL DIFFERENTIAL Routine 05/25/2025 12:51 AM CDT IMMATURE PLATELET FRACTION Routine 05/25/2025 12:51 AM CDT EGFR Routine 05/25/2025 12:51 AM CDT BASIC METABOLIC PANEL Routine 05/25/2025 12:51 AM CDT URIC ACID Routine 05/25/2025 12:51 AM CDT PHOSPHORUS Routine 05/25/2025 12:51 AM CDT LACTATE DEHYDROGENASE Routine 05/25/2025 12:51 AM CDT CBC WITH AUTO DIFFERENTIAL Routine 05/25/2025 12:51 AM CDT MAGNESIUM Routine 05/25/2025 12:51 AM CDT MANUAL DIFFERENTIAL STAT 05/24/2025 8 :22 PM CDT 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 having achieved remission (HCC) IMMATURE PLATELET FRACTION STAT 05/24/2025 8:22 PM CDT 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 having achieved remission (HCC) EGFR STAT 05/24/2025 8:22 PM CDT 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 having achieved remission (HCC) LACTATE DEHYDROGENASE Routine 05/24/2025 8:22 PM CDT 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 having achieved remission (HCC) CREATINE KINASE (CK), TOTAL STAT 05/24/2025 8:22 PM CDT 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 having achieved remission (HCC) URIC ACID STAT 05/24/2025 8:22 PM CDT 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 having achieved remission (HCC) PHOSPHORUS STAT 05/24/2025 8:22 PM CDT 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 having achieved remission (HCC) MAGNESIUM STAT 05/24/2025 8:22 PM CDT 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 having achieved remission (HCC) COMPREHENSIVE METABOLIC PANEL STAT 05/24/2025 8:22 PM CDT 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 having achieved remission (HCC) CBC WITH AUTO DIFFERENTIAL STAT 05/24/2025 8:22 PM CDT 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 having achieved remission (HCC) HLA HEMATOPOIETIC STEM CELL TYPING REPORT 05/24/2025 10:19 AM CDT CREATINE KINASE (CK), TOTAL Routine 05/24/2025 12:33 AM CDT MANUAL DIFFERENTIAL Routine 05/24/2025 12:33 AM CDT IMMATURE PLATELET FRACTION Routine 05/24/2025 12:33 AM CDT SENIOR STAFF REVIEW Routine 05/24/2025 12:33 AM CDT EGFR Routine 05/24/2025 12:33 AM CDT APTT Timed 05/24/2025 12:33 AM CDT URIC ACID Routine 05/24/2025 12:33 AM CDT PHOSPHORUS Routine 05/24/2025 12:33 AM CDT LACTATE DEHYDROGENASE Routine 05/24/2025 12:33 AM CDT COMPREHENSIVE METABOLIC PANEL Routine 05/24/2025 12:33 AM CDT TYPE AND SCREEN Timed 05/24/2025 12:33 AM CDT CBC WITH AUTO DIFFERENTIAL Routine 05/24/2025 12:33 AM CDT MAGNESIUM Routine 05/24/2025 12:33 AM CDT IMMATURE PLATELET FRACTION Routine 05/23/2025 12:45 AM CDT EGFR Routine 05/23/2025 12:45 AM CDT DIFFERENTIAL AUTO Routine 05/23/2025 12:45 AM CDT BASIC METABOLIC PANEL Routine 05/23/2025 12:45 AM CDT URIC ACID Routine 05/23/2025 12:45 AM CDT PHOSPHORUS Routine 05/23/2025 12:45 AM CDT LACTATE DEHYDROGENASE Routine 05/23/2025 12:45 AM CDT CBC WITH AUTO DIFFERENTIAL Routine 05/23/2025 12:45 AM CDT MAGNESIUM Routine 05/23/2025 12:45 AM CDT POCT GLUCOSE DEVICE Routine 05/22/2025 1 :38 PM CDT POCT GLUCOSE DEVICE Routine 05/22/2025 8 :22 AM CDT TRANSFUSE RED BLOOD CELLS Timed 05/22/2025 4:00 AM CDT Anemia, unspecified type PREPARE RBC Timed 05/22/2025 3:30 AM CDT Anemia, unspecified type IMMATURE PLATELET FRACTION Routine 05/22/2025 12:46 AM CDT EGFR Routine 05/22/2025 12:46 AM CDT DIFFERENTIAL AUTO Routine 05/22/2025 12:46 AM CDT URIC ACID Routine 05/22/2025 12:46 AM CDT PHOSPHORUS Routine 05/22/2025 12:46 AM CDT LACTATE DEHYDROGENASE Routine 05/22/2025 12:46 AM CDT BASIC METABOLIC PANEL Routine 05/22/2025 12:46 AM CDT CBC WITH AUTO DIFFERENTIAL Routine 05/22/2025 12:46 AM CDT MAGNESIUM Routine 05/22/2025 12:46 AM CDT HEPATIC FUNCTION PANEL Routine 12:46 AM CDT POCT GLUCOSE DEVICE Routine 05/21/2025 7 :26 PM CDT POCT GLUCOSE DEVICE Routine 05/21/2025 2 :23 PM CDT POCT GLUCOSE DEVICE Routine 05/21/2025 9 :45 AM CDT MRI BRAIN W WO CONTRAST IP Routine 05/21/2025 9:09 AM CDT TRANSFUSE RED BLOOD CELLS Timed 05/21/2025 6:04 AM CDT Anemia, unspecified type PREPARE RBC Timed 05/21/2025 5:02 AM CDT Anemia, unspecified type IMMATURE PLATELET FRACTION Routine 05/21/2025 4:03 AM CDT EGFR Routine 05/21/2025 4:03 AM CDT DIFFERENTIAL AUTO Routine 05/21/2025 4:0 3 AM CDT URIC ACID Routine 05/21/2025 4:03 AM CDT PHOSPHORUS Routine 05/21/2025 4:03 AM CDT LACTATE DEHYDROGENASE Routine 05/21/2025 4:03 AM CDT BASIC METABOLIC PANEL Routine 05/21/2025 4:03 AM CDT CBC WITH AUTO DIFFERENTIAL Routine 05/21/2025 4:03 AM CDT MAGNESIUM Routine 05/21/2025 4:03 AM CDT HEPATIC FUNCTION PANEL Routine 4:03 AM CDT POCT GLUCOSE DEVICE Routine 05/20/2025 7 :12 PM CDT POCT GLUCOSE DEVICE Routine 05/20/2025 1 :13 PM CDT POCT GLUCOSE DEVICE Routine 05/20/2025 7 :23 AM CDT MANUAL DIFFERENTIAL Routine 05/20/2025 2 :16 AM CDT IMMATURE PLATELET FRACTION Routine 05/20/2025 2:16 AM CDT EGFR Routine 05/20/2025 2:16 AM CDT BILIRUBIN, DIRECT Routine 05/20/2025 2:1 6 AM CDT URIC ACID Routine 05/20/2025 2:16 AM CDT PHOSPHORUS Routine 05/20/2025 2:16 AM CDT LACTATE DEHYDROGENASE Routine 05/20/2025 2:16 AM CDT COMPREHENSIVE METABOLIC PANEL Routine 05/20/2025 2:16 AM CDT TYPE AND SCREEN Timed 05/20/2025 2:16 AM CDT CBC WITH AUTO DIFFERENTIAL Routine 05/20/2025 2:16 AM CDT MAGNESIUM Routine 05/20/2025 2:16 AM CDT POCT GLUCOSE DEVICE Routine 05/19/2025 6 :48 PM CDT POCT GLUCOSE DEVICE Routine 05/19/2025 1 :23 PM CDT POCT GLUCOSE DEVICE Routine 05/19/2025 7 :23 AM CDT MANUAL DIFFERENTIAL Routine 05/19/2025 12:54 AM CDT IMMATURE PLATELET FRACTION Routine 05/19/2025 12:54 AM CDT EGFR Routine 05/19/2025 12:54 AM CDT URIC ACID Routine 05/19/2025 12:54 AM CDT PHOSPHORUS Routine 05/19/2025 12:54 AM CDT LACTATE DEHYDROGENASE Routine 05/19/2025 12:54 AM CDT BASIC METABOLIC PANEL Routine 05/19/2025 12:54 AM CDT CBC WITH AUTO DIFFERENTIAL Routine 05/19/2025 12:54 AM CDT MAGNESIUM Routine 05/19/2025 12:54 AM CDT HEPATIC FUNCTION PANEL Routine 12:54 AM CDT POCT GLUCOSE DEVICE Routine 05/18/2025 5 :12 PM CDT UREA NITROGEN, URINE, RANDOM Routine 05/18/2025 2:39 PM CDT SODIUM, URINE, RANDOM Routine 05/18/2025 2:39 PM CDT CREATININE, URINE, RANDOM Routine 05/18/2025 2:39 PM CDT URINALYSIS AND REFLEX TO MICROSCOPIC Routine 05/18/2025 2:39 PM CDT POCT GLUCOSE DEVICE Routine 05/18/2025 1 :59 PM CDT US VEIN DUPLEX LOWER EXTREMITY BILATERAL COMPLETE IP Routine 05/18/2025 11:52 AM CDT POCT GLUCOSE DEVICE Routine 05/18/2025 8 :39 AM CDT IMMATURE PLATELET FRACTION Routine 05/18/2025 12:40 AM CDT EGFR Routine 05/18/2025 12:40 AM CDT DIFFERENTIAL AUTO Routine 05/18/2025 12:40 AM CDT URIC ACID Routine 05/18/2025 12:40 AM CDT PHOSPHORUS Routine 05/18/2025 12:40 AM CDT LACTATE DEHYDROGENASE Routine 05/18/2025 12:40 AM CDT BASIC METABOLIC PANEL Routine 05/18/2025 12:40 AM CDT CBC WITH AUTO DIFFERENTIAL Routine 05/18/2025 12:40 AM CDT MAGNESIUM Routine 05/18/2025 12:40 AM CDT HEPATIC FUNCTION PANEL Routine 12:40 AM CDT POCT GLUCOSE DEVICE Routine 05/17/2025 8 :34 PM CDT POCT GLUCOSE DEVICE Routine 05/17/2025 5 :25 PM CDT MRI SAFETY, TECHNICAL ASSESSMENT, 15 MIN IP Routine 05/17/2025 1:59 PM CDT POCT GLUCOSE DEVICE Routine 05/17/2025 11:39 AM CDT POCT GLUCOSE DEVICE Routine 05/17/2025 11:14 AM CDT POCT GLUCOSE DEVICE Routine 05/17/2025 7 :55 AM CDT MANUAL DIFFERENTIAL Routine 05/17/2025 12:30 AM CDT IMMATURE PLATELET FRACTION Routine 05/17/2025 12:30 AM CDT EGFR Routine 05/17/2025 12:30 AM CDT URIC ACID Routine 05/17/2025 12:30 AM CDT APTT Routine 05/17/2025 12:30 AM CDT PROTIME-INR Routine 05/17/2025 12:30 AM CDT HEPATIC FUNCTION PANEL Routine 12:30 AM CDT PHOSPHORUS Routine 05/17/2025 12:30 AM CDT MAGNESIUM Routine 05/17/2025 12:30 AM CDT LACTATE DEHYDROGENASE Routine 05/17/2025 12:30 AM CDT BASIC METABOLIC PANEL Routine 05/17/2025 12:30 AM CDT CBC WITH AUTO DIFFERENTIAL Routine 05/17/2025 12:30 AM CDT TYPE AND SCREEN Timed 05/17/2025 12:30 AM CDT POCT GLUCOSE DEVICE Routine 05/16/2025 9 :58 PM CDT XR CHEST PA LATERAL 2 VIEWS Routine 05/16/2025 5:49 PM CDT EGFR Timed 05/16/2025 5:30 PM CDT URIC ACID Timed 05/16/2025 5:30 PM CDT POTASSIUM, WHOLE BLOOD Timed 5:30 PM CDT PHOSPHORUS Timed 05/16/2025 5:30 PM CDT BASIC METABOLIC PANEL Timed 05/16/2025 5:30 PM CDT POCT GLUCOSE DEVICE Routine 05/16/2025 5 :05 PM CDT POCT GLUCOSE DEVICE Routine 05/16/2025 1 :03 PM CDT TRANSFUSE RED BLOOD CELLS Timed 05/16/2025 12:59 PM CDT Anemia, unspecified type POCT GLUCOSE DEVICE Routine 05/16/2025 8 :21 AM CDT TYPE AND SCREEN STAT 05/16/2025 8:13 AM CDT LACTATE DEHYDROGENASE Timed 05/16/2025 8:13 AM CDT PREPARE RBC Timed 05/16/2025 7:48 AM CDT Anemia, unspecified type TRANSFUSE PLATELETS Timed 05/16/2025 6 :38 AM CDT Anemia, unspecified type POCT GLUCOSE DEVICE Routine 05/16/2025 5 :48 AM CDT PREPARE PLATELETS Timed 05/16/2025 5:4 5 AM CDT Anemia, unspecified type MANUAL DIFFERENTIAL Routine 05/16/2025 4 :44 AM CDT IMMATURE PLATELET FRACTION Routine 05/16/2025 4:44 AM CDT EGFR Timed 05/16/2025 4:44 AM CDT URIC ACID Timed 05/16/2025 4:44 AM CDT POTASSIUM, WHOLE BLOOD Timed 4:44 AM CDT PHOSPHORUS Timed 05/16/2025 4:44 AM CDT BASIC METABOLIC PANEL Timed 05/16/2025 4:44 AM CDT CBC WITH AUTO DIFFERENTIAL Routine 05/16/2025 4:44 AM CDT MAGNESIUM Routine 05/16/2025 4:44 AM CDT HEPATIC FUNCTION PANEL Routine 4:44 AM CDT POCT GLUCOSE DEVICE Routine 05/16/2025 12:06 AM CDT POCT GLUCOSE DEVICE Routine 05/15/2025 10:31 PM CDT LACTATE DEHYDROGENASE Timed 05/15/2025 9:00 PM CDT EGFR Timed 05/15/2025 5:05 PM CDT URIC ACID Timed 05/15/2025 5:05 PM CDT POTASSIUM, WHOLE BLOOD Timed 5:05 PM CDT PHOSPHORUS Timed 05/15/2025 5:05 PM CDT BASIC METABOLIC PANEL Timed 05/15/2025 5:05 PM CDT POCT GLUCOSE DEVICE Routine 05/15/2025 4 :56 PM CDT POCT GLUCOSE DEVICE Routine 05/15/2025 12:19 PM CDT TRANSFUSE RED BLOOD CELLS Timed 05/15/2025 9:59 AM CDT Anemia, unspecified type LACTATE DEHYDROGENASE Timed 05/15/2025 9:20 AM CDT POCT GLUCOSE DEVICE Routine 05/15/2025 8 :33 AM CDT TRANSFUSE PLATELETS Timed 05/15/2025 5 :22 AM CDT Anemia, unspecified type PREPARE RBC Timed 05/15/2025 4:07 AM CDT Anemia, unspecified type PREPARE PLATELETS Timed 05/15/2025 4:0 6 AM CDT Anemia, unspecified type POCT GLUCOSE DEVICE Routine 05/15/2025 3 :04 AM CDT MANUAL DIFFERENTIAL Routine 05/15/2025 3 :04 AM CDT IMMATURE PLATELET FRACTION Routine 05/15/2025 3:04 AM CDT EGFR Routine 05/15/2025 3:04 AM CDT POTASSIUM, WHOLE BLOOD Routine 3:04 AM CDT CBC WITH AUTO DIFFERENTIAL Routine 05/15/2025 3:04 AM CDT BASIC METABOLIC PANEL Routine 05/15/2025 3:04 AM CDT PHOSPHORUS Routine 05/15/2025 3:04 AM CDT LACTATE DEHYDROGENASE Routine 05/15/2025 3:04 AM CDT URIC ACID Routine 05/15/2025 3:04 AM CDT MAGNESIUM Routine 05/15/2025 3:04 AM CDT HEPATIC FUNCTION PANEL Routine 3:04 AM CDT POCT GLUCOSE DEVICE Routine 05/14/2025 11:50 PM CDT POCT GLUCOSE DEVICE Routine 05/14/2025 8 :30 PM CDT LACTATE DEHYDROGENASE Timed 05/14/2025 4:40 PM CDT EGFR Timed 05/14/2025 4:40 PM CDT URIC ACID Timed 05/14/2025 4:40 PM CDT PHOSPHORUS Timed 05/14/2025 4:40 PM CDT BASIC METABOLIC PANEL Timed 05/14/2025 4:40 PM CDT POCT GLUCOSE DEVICE Routine 05/14/2025 4 :16 PM CDT FLOW LEUKEMIA/LYMPHOMA Timed 12:49 PM CDT HEMATOLOGIC MOLECULAR ALGORITHM Routine 05/14/2025 12:49 PM CDT CHROMOSEQ - HEME GENETIC PROFILING (WGS) WITH INTERPRETATION Routine 05/14/2025 12:44 PM CDT MYELOSEQ HEME NGS PANEL WITH INTERPRETATION Routine 05/14/2025 12:44 PM CDT CYTOGENETICS Routine 05/14/2025 12:43 PM CDT POCT GLUCOSE DEVICE Routine 05/14/2025 11:05 AM CDT SURGICAL PATHOLOGY Routine 05/14/2025 10:07 AM CDT POCT GLUCOSE DEVICE Routine 05/14/2025 8 :38 AM CDT TRANSTHORACIC ECHO (TTE) COMPLETE W DOPPLER/CF WO CONTRAST Routine 05/14/2025 8:19 AM CDT TRANSFUSE RED BLOOD CELLS Timed 05/14/2025 6:02 AM CDT Anemia, unspecified type PREPARE RBC Timed 05/14/2025 5:15 AM CDT Anemia, unspecified type POTASSIUM, WHOLE BLOOD Routine 3:48 AM CDT MANUAL DIFFERENTIAL Routine 05/14/2025 3 :47 AM CDT IMMATURE PLATELET FRACTION Routine 05/14/2025 3:47 AM CDT EGFR Routine 05/14/2025 3:47 AM CDT HEPATIC FUNCTION PANEL Routine 3:47 AM CDT MAGNESIUM Routine 05/14/2025 3:47 AM CDT BASIC METABOLIC PANEL Routine 05/14/2025 3:47 AM CDT PHOSPHORUS Routine 05/14/2025 3:47 AM CDT URIC ACID Routine 05/14/2025 3:47 AM CDT LACTATE DEHYDROGENASE Routine 05/14/2025 3:47 AM CDT CBC WITH AUTO DIFFERENTIAL Routine 05/14/2025 3:47 AM CDT HSV 1 ANTIBODY, IGG Routine 05/14/2025 3 :47 AM CDT HSV 2 ANTIBODY, IGG Routine 05/14/2025 3 :47 AM CDT POCT GLUCOSE DEVICE Routine 05/14/2025 3 :37 AM CDT POCT GLUCOSE DEVICE Routine 05/14/2025 12:34 AM CDT COLLECTION TASK FOR HLA TYPING, BUCCAL Routine 05/13/2025 8:50 PM CDT HLA CLASS I DNA (ABC) RECIPIENT Routine 05/13/2025 8:50 PM CDT HLA ANTIBODY SCREEN BY SINGLE ANTIGEN Routine 05/13/2025 8:50 PM CDT LACTATE DEHYDROGENASE Timed 05/13/2025 8:50 PM CDT HLA CONFIRMATORY TYPING Routine 05/13/2025 8:44 PM CDT Leukocytosis, unspecified type HR HLA TYPING (CLASS I AND CLASS II) Routine 05/13/2025 8:40 PM CDT Leukocytosis, unspecified type HLA ANTIBODY SCREEN - SAB (CLASS I AND CLASS II) Routine 05/13/2025 8:40 PM CDT Leukocytosis, unspecified type POCT GLUCOSE DEVICE Routine 05/13/2025 8 :32 PM CDT XR CHEST 1 VIEW IP Routine 05/13/2025 7:46 PM CDT HEPATIC FUNCTION PANEL Timed 4:20 PM CDT EGFR Timed 05/13/2025 4:20 PM CDT URIC ACID Timed 05/13/2025 4:20 PM CDT PHOSPHORUS Timed 05/13/2025 4:20 PM CDT POTASSIUM, WHOLE BLOOD Timed 4:20 PM CDT BASIC METABOLIC PANEL Timed 05/13/2025 4:20 PM CDT POCT GLUCOSE DEVICE Routine 05/13/2025 3 :25 PM CDT MANUAL DIFFERENTIAL STAT 05/13/2025 1 :22 PM CDT IMMATURE PLATELET FRACTION STAT 05/13/2025 1:22 PM CDT BLOOD PRODUCT CBC Routine 05/13/2025 1:2 2 PM CDT CBC WITH AUTO DIFFERENTIAL STAT 05/13/2025 1:22 PM CDT POCT GLUCOSE DEVICE Routine 05/13/2025 1 :01 PM CDT IMMATURE PLATELET FRACTION STAT 05/13/2025 11:35 AM CDT CALCIUM,IONIZED, WHOLE BLOOD STAT 05/13/2025 11:35 AM CDT CBC WITHOUT DIFFERENTIAL STAT 05/13/2025 11:35 AM CDT POCT GLUCOSE DEVICE Routine 05/13/2025 11:30 AM CDT MANUAL DIFFERENTIAL STAT 05/13/2025 9 :53 AM CDT IMMATURE PLATELET FRACTION STAT 05/13/2025 9:53 AM CDT CBC WITH AUTO DIFFERENTIAL STAT 05/13/2025 9:53 AM CDT POCT GLUCOSE DEVICE Routine 05/13/2025 7 :46 AM CDT TRANSFUSE RED BLOOD CELLS Timed 05/13/2025 7:45 AM CDT MAGNESIUM Timed 05/13/2025 7:23 AM CDT EGFR Timed 05/13/2025 7:23 AM CDT LACTATE DEHYDROGENASE Timed 05/13/2025 7:23 AM CDT URIC ACID Timed 05/13/2025 7:23 AM CDT PHOSPHORUS Timed 05/13/2025 7:23 AM CDT POTASSIUM, WHOLE BLOOD Timed 7:23 AM CDT BASIC METABOLIC PANEL Timed 05/13/2025 7:23 AM CDT PREPARE RBC Timed 05/13/2025 6:16 AM CDT POCT GLUCOSE DEVICE Routine 05/13/2025 3 :48 AM CDT LACTATE DEHYDROGENASE Routine 05/13/2025 1:57 AM CDT MANUAL DIFFERENTIAL Routine 05/13/2025 1 :57 AM CDT IMMATURE PLATELET FRACTION Routine 05/13/2025 1:57 AM CDT FERRITIN Routine 05/13/2025 1:57 AM CDT CBC WITH AUTO DIFFERENTIAL Routine 05/13/2025 1:57 AM CDT RPR Routine 05/13/2025 1:57 AM CDT POCT GLUCOSE DEVICE Routine 05/13/2025 12:11 AM CDT EGFR Timed 05/13/2025 12:04 AM CDT CRITICAL RESULT CALLBACK CHEMISTRY Timed 05/13/2025 12:04 AM CDT BASIC METABOLIC PANEL Timed 05/13/2025 12:04 AM CDT URIC ACID Timed 05/13/2025 12:04 AM CDT PHOSPHORUS Timed 05/13/2025 12:04 AM CDT POTASSIUM, WHOLE BLOOD Timed 12:04 AM CDT BLOOD SMEAR REVIEW STAT 05/12/2025 8: 29 PM CDT IMMATURE PLATELET FRACTION STAT 05/12/2025 8:29 PM CDT CBC WITHOUT DIFFERENTIAL STAT 05/12/2025 8:29 PM CDT POTASSIUM, WHOLE BLOOD Timed 8:29 PM CDT POCT GLUCOSE DEVICE Routine 05/12/2025 7 :59 PM CDT TRANSFUSE RED BLOOD CELLS Timed 05/12/2025 5:45 PM CDT LACTATE DEHYDROGENASE Timed 05/12/2025 5:29 PM CDT PREPARE RBC Timed 05/12/2025 5:27 PM CDT IMMATURE PLATELET FRACTION STAT 05/12/2025 4:48 PM CDT DIFFERENTIAL AUTO STAT 05/12/2025 4:4 8 PM CDT BLOOD PRODUCT CBC Routine 05/12/2025 4:4 8 PM CDT CBC WITH AUTO DIFFERENTIAL STAT 05/12/2025 4:48 PM CDT URIC ACID Timed 05/12/2025 4:48 PM CDT PHOSPHORUS Timed 05/12/2025 4:48 PM CDT POTASSIUM, WHOLE BLOOD Timed 4:48 PM CDT POCT GLUCOSE DEVICE Routine 05/12/2025 3 :37 PM CDT IMMATURE PLATELET FRACTION STAT 05/12/2025 2:38 PM CDT DIFFERENTIAL AUTO STAT 05/12/2025 2:3 8 PM CDT CALCIUM,IONIZED, WHOLE BLOOD STAT 05/12/2025 2:38 PM CDT CBC WITH AUTO DIFFERENTIAL STAT 05/12/2025 2:38 PM CDT POCT GLUCOSE DEVICE Routine 05/12/2025 11:45 AM CDT SENIOR STAFF REVIEW Routine 05/12/2025 11:12 AM CDT IMMATURE PLATELET FRACTION Routine 05/12/2025 11:12 AM CDT MANUAL DIFFERENTIAL Routine 05/12/2025 11:12 AM CDT CRITICAL RESULT CALLBACK CHEMISTRY Routine 05/12/2025 11:12 AM CDT CBC WITHOUT DIFFERENTIAL Routine 05/12/2025 11:12 AM CDT POTASSIUM, WHOLE BLOOD Routine 11:12 AM CDT AR INSJ NON-TUNNELED CENTRAL VENOUS CATH AGE 5 YR/> Routine 05/12/2025 10:57 AM CDT Leukocytosis, unspecified type Hyperleukocytosis TRANSFUSE RED BLOOD CELLS Timed 05/12/2025 10:10 AM CDT EGFR Timed 05/12/2025 9:52 AM CDT FLT3 MUTATION DETECTION BY PCR Routine 05/12/2025 9:52 AM CDT BASIC METABOLIC PANEL Timed 05/12/2025 9:52 AM CDT PREPARE RBC Timed 05/12/2025 9:29 AM CDT XR CHEST 1 VIEW ED Urgent/IP Urgent 05/12/2025 9:03 AM CDT SENIOR STAFF REVIEW Timed 05/12/2025 8 :50 AM CDT MANUAL DIFFERENTIAL Timed 05/12/2025 8 :50 AM CDT G6PD QUALITATIVE WITH REFLEX TO QUANTITATIVE Routine 05/12/2025 8:50 AM CDT CBC WITHOUT DIFFERENTIAL Timed 05/12/2025 8:50 AM CDT PHOSPHORUS Timed 05/12/2025 8:50 AM CDT URIC ACID Timed 05/12/2025 8:50 AM CDT LACTATE DEHYDROGENASE Timed 05/12/2025 8:50 AM CDT CYTOGENETICS STAT 05/12/2025 8:45 AM CDT POCT GLUCOSE DEVICE Routine 05/12/2025 8 :10 AM CDT CREATININE, URINE, RANDOM Routine 05/12/2025 6:58 AM CDT SODIUM, URINE, RANDOM Routine 05/12/2025 6:58 AM CDT HISTOPLASMA ANTIGEN Routine 05/12/2025 6 :58 AM CDT LEGIONELLA ANTIGEN, URINE Routine 05/12/2025 6:58 AM CDT URINALYSIS AND REFLEX TO MICROSCOPIC AND CULTURE STAT 05/12/2025 6:58 AM CDT DRUGS OF ABUSE SCREEN, URINE WITH REFLEX CONFIRMATION Routine 05/12/2025 6:50 AM CDT TROPONIN I HIGH-SENSITIVITY 4-HOUR Timed 05/12/2025 6:08 AM CDT POCT GLUCOSE DEVICE Routine 05/12/2025 4 :17 AM CDT TRANSFUSE RED BLOOD CELLS Timed 05/12/2025 4:15 AM CDT CRITICAL RESULT CALLBACK CHEMISTRY Routine 05/12/2025 4:02 AM CDT EXTRA SLIDE PREPARATION Routine 05/12/2025 4:02 AM CDT POTASSIUM, WHOLE BLOOD Routine 4:02 AM CDT TROPONIN I HIGH-SENSITIVITY 2-HOUR Timed 05/12/2025 4:02 AM CDT B CHECK SAMPLE STAT 05/12/2025 2:58 AM CDT PREPARE RBC Timed 05/12/2025 2:53 AM CDT XR CHEST 1 VIEW ED Urgent/IP Urgent 05/12/2025 2:24 AM CDT POCT GLUCOSE DEVICE Routine 05/12/2025 2 :11 AM CDT FLOW LEUKEMIA/LYMPHOMA Timed 2:03 AM CDT OSMOLALITY, BLOOD Timed 05/12/2025 2:03 AM CDT CREATINE KINASE (CK), TOTAL Timed 05/12/2025 2:03 AM CDT SENIOR STAFF REVIEW Routine 05/12/2025 2 :03 AM CDT EGFR STAT 05/12/2025 2:03 AM CDT CRITICAL RESULT CALLBACK CHEMISTRY STAT 05/12/2025 2:03 AM CDT CRITICAL RESULT CALLBACK CHEMISTRY STAT 05/12/2025 2:03 AM CDT MANUAL DIFFERENTIAL Routine 05/12/2025 2 :03 AM CDT CBC WITHOUT DIFFERENTIAL Routine 05/12/2025 2:03 AM CDT EXTRA SLIDE PREPARATION Routine 05/12/2025 2:03 AM CDT APTT Routine 05/12/2025 2:03 AM CDT PROTIME-INR Routine 05/12/2025 2:03 AM CDT FIBRINOGEN STAT 05/12/2025 2:03 AM CDT HAPTOGLOBIN STAT 05/12/2025 2:03 AM CDT PHOSPHORUS Timed 05/12/2025 2:03 AM CDT URIC ACID Timed 05/12/2025 2:03 AM CDT LACTATE DEHYDROGENASE Timed 05/12/2025 2:03 AM CDT BMT CBC Routine 05/12/2025 2:03 AM CDT LACTATE Routine 05/12/2025 2:03 AM CDT MAGNESIUM STAT 05/12/2025 2:03 AM CDT COMPREHENSIVE METABOLIC PANEL STAT 05/12/2025 2:03 AM CDT BLOOD GAS, ARTERIAL STAT 05/12/2025 2 :03 AM CDT TROPONIN I HIGH-SENSITIVITY SERIES (BASELINE, 2HR, 4HR, 6HR) Routine 05/12/2025 2:03 AM CDT TYPE AND SCREEN STAT 05/12/2025 2:03 AM CDT ASPERGILLUS GALACTOMANNAN ANTIGEN Routine 05/12/2025 2:03 AM CDT CRYPTOCOCCAL ANTIGEN, SERUM Routine 05/12/2025 2:03 AM CDT COCCIDIOIDES ANTIBODY SCREEN W/REFLEX Routine 05/12/2025 2:03 AM CDT BLASTOMYCES ANTIBODY, EIA, S Routine 05/12/2025 2:03 AM CDT HIV 1/2 ANTIBODY PLUS P24 ANTIGEN Routine 05/12/2025 2:03 AM CDT HEPATITIS PANEL, ACUTE Routine 2:03 AM CDT CMV, IGG Routine 05/12/2025 2:03 AM CDT RESPIRATORY PATHOGEN PANEL Routine 05/12/2025 2:03 AM CDT CYTOMEGALOVIRUS (CMV) DNA, QUANT GEN LAB Routine 05/12/2025 2:03 AM CDT BLOOD CULTURE Routine 05/12/2025 2:03 AM CDT BLOOD CULTURE Routine 05/12/2025 2:03 AM CDT INFECTION PREVENTION MRSA ONLY (STAPHYLOCOCCUS AUREUS) CULTURE Routine 05/12/2025 2:03 AM CDT SURGICAL PATHOLOGY Routine 05/12/2025 1: 49 AM CDT ECG 12-LEAD STAT 05/12/2025 1:44 AM CDT from Last 3 Months Results * eGFR (06/10/2025 6:45 AM CDT) Pathologist [facility] eGFR >90 >=60 mL/min/1. 73 m2 Comment: [...] of Race in Diagnosing Kidney Disease, JASN 2020). The CKD-EPI equation should not be used for patients with unstable renal function and has not been validated in children and those over 70. Current interpretive data was last reviewed 2021. Blood 06/10/2025 6:45 AM CDT 06/10/2025 6:51 AM CDT us Tania Lott MD PhD LAB BLOOD ORDERABLES Fin al Result ANGELA DUNAWAY [facility] Department [place] [address] * (ABNORMAL) CBC with auto differential (06/10/2025 6:45 AM CDT) [facility] WBC 1.59(L) 3.80 - 9.90 K/cumm Comment:Testing performed by : [facility], [address] [place] [phone] Hgb 8.9(L) 13.0 - 17.5 g/dL ANGELA DUNAWAY Comment:Testing performed by : [facility], [address] [place] [phone] Hct 25.8(L) 38.9 - 50.3 % CERNER BJ Comment:Testing performed by : [facility], [address] [place], [place] [phone] Plt 11(C) 150 - 400 K/cumm CERNER BJ Comment: Results Consistent with Previous Results Testing performed by: [facility], [address] [place], [place] [phone] MPV 9.2 6.8 - 10.4 fL CERNER BJ Comment:Testing performed by : [facility], [address] [place], [place] [phone] RBC 2.93(L) 4.30 - 5.80 M/cumm CERNER BJ Comment:Testing performed by : [facility], [address] [place], [place] [phone] MCV 88.1 81.3 - 96.4 fL CERNER BJ Comment:Testing performed by : [facility], [address] [place], [place] [phone] MCH 30.2 27.1 - 33.3 pg CERNER BJ Comment:Testing performed by : [facility], [address] [place], [place] [phone] MCHC 34.3 32.3 - 35.7 g/dL CERNER BJ Comment:Testing performed by : [facility], [address] [place], [place] [phone] RDW CV 16.3(H) 11.1 - 14.9 % CERNER BJ Comment:Testing performed by : [facility], [address] [place], [place] [phone] NRBC abs 0.20(H) 0.00 - 0.01 K/cumm CERNER BJ Comment:Testing performed by : [facility], [address] [place], [place] [phone] Blood 06/10/2025 6:45 AM CDT 06/10/2025 6:48 AM CDT Tania Lott MD PhD LAB BLOOD ORDERABLES Fin al Result [facility] Department [place] [address] * (ABNORMAL) Manual Differential (06/10/2025 6:45 AM CDT) Cells Counted 69 Comment:Testing performed by : [facility], [address] [place] [phone] Neutrophil abs 0.86(L) 1.50 - 6.50 K/cumm CERNER BJ Comment:Testing performed by : [facility], [address] [place], [place] [phone] Lymphocyte abs 0.72(L) 0.80 - 3.30 K/cumm CERNER BJ Comment:Testing performed by : [facility], [address] [place] [phone] Monocyte abs 0.00(L) 0.20 - 0.80 K/cumm CERNER BJ Comment:Testing performed by : [facility], [address] [place], [place] [phone] Eosinophil abs 0.02 0.00 - 0.50 K/cumm CERNER BJ Comment:Testing performed by : [facility], [address] [place], [place] [phone] Basophil abs 0.00 0.00 - 0.10 K/cumm CERNER BJ Comment:Testing performed by : [facility], [address] [place], [place] [phone] Neutrophil pct 54.0 % CERNER BJ Comment: Interpretive Data Percent cell count reference ranges are not reported, since discordance with absolute values may lead to misinterpretation of CBC data. Current Interpretive Data was last revised on 2018. Testing performed by: [facility], [address] [place], [place] [phone] Lymphocyte pct 45.0 % CERNER BJ Comment: Interpretive Data Percent cell count reference ranges are not reported, since discordance with absolute values may lead to misinterpretation of CBC data. Current Interpretive Data was last revised on 2018. Testing performed by: [facility], [address] [place] [phone] Monocyte pct 0.0 % CERNER BJ Comment: Interpretive Data Percent cell count reference ranges are not reported, since discordance with absolute values may lead to misinterpretation of CBC data. Current Interpretive Data was last revised on 2018. Testing performed by: [facility], [address] [place], [place] [address] Eosinophil pct 1.0 % CERNER BJ Comment: Interpretive Data Percent cell count reference ranges are not reported, since discordance with absolute values may lead to misinterpretation of CBC data. Current Interpretive Data was last revised on 2018. Testing performed by: [facility], [address] [place], [place] [id number] Basophil pct 0.0 % CERNER BJ Comment: Interpretive Data Percent cell count reference ranges are not reported, since discordance with absolute values may lead to misinterpretation of CBC data. Current Interpretive Data was last revised on 2018. Testing performed by: [facility], [address] [place], [place] [id number] Smudge cells, qual Present(A ) CERNER BJ Comment:Testing performed by : [facility], [address] [place], [place] [id number] RBC morphology NRBCs present(A ) CERNER BJ Comment:Testing performed by : [facility], [address] [place] [phone] Polychromasia 1+(A) CERNER BJ Comment:Testing performed by : [facility], [address] [place], [place] [phone] Hypochromasia 2+(A) CERNER BJ Comment:Testing performed by : [facility], [address] [place] [phone] Anisocytosis 1+(A) CERNER BJ Comment:Testing performed by : [facility], [address] [place], [place] [phone] Poikilocytosis 1+(A) CERNER BJ Comment:Testing performed by : [facility], [address] [place] [phone] Microcytes 2+(A) ANGELA [facility] Comment:Testing performed by : [facility], [address] [place], [place] [phone] Macrocytes 1+(A) ANGELA [facility] Comment:Testing performed by : [facility], [address] [place], [place] [phone] Elliptocytes 1+(A) ANGELA [facility] Comment:Testing performed by : [facility], [address] [place], [place] [phone] Target cells 1+(A) ANGELA [facility] Comment:Testing performed by : [facility], [address] [place], [place] [phone] Platelet estimate Decreased (A) ANGELA [facility] Comment:Testing performed by : [facility], [address] [place] [phone] Blood 06/10/2025 6:45 AM CDT 06/10/2025 6:48 AM CDT us Tania Lott MD PhD LAB BLOOD ORDERABLES Fin al Result [facility] Department [place] [address] * Type and screen (06/10/2025 6:45 AM CDT) ABO Rh B Positive Benjy, indirect Negative [facility] Blood 06/10/2025 6:45 AM CDT 06/10/2025 7:07 AM CDT Narrative [facility] - 06/10/2025 8:09 AM CDT Has the patient had Daratumumab or Isatuximab in the past 6 months?->Unknown Tania Lott MD PhD LAB BLOOD BANK TEST ORDE PRIMO Final Result [facility] Department [place] [address] * (ABNORMAL) Lactate dehydrogenase (LD) (06/10/2025 6:45 AM CDT) Pathologist [facility] Lactate dehydrogenase (LDH) 336(H) 100 - 250 Units/L Blood 06/10/2025 6:45 AM CDT 06/10/2025 6:51 AM CDT Tania Lott MD PhD LAB BLOOD ORDERABLES Fin al Result [facility] Department [place] [address] * (ABNORMAL) Comprehensive metabolic panel (06/10/2025 6:45 AM CDT) Pathologist [facility] Sodium 136 135 - 145 mmol/L Potassium, pl 3.5 3.3 - 4.9 mmol/L [facility] Chloride 102 97 - 110 mmol/L [facility] CO2 26 22 - 32 mmol/L [facility] Anion gap 8 2 - 15 mmol/L [facility] BUN 7 6 - 25 mg/dL [facility] Creatinine 0.74(L) 0.80 - 1.30 mg/dL [facility] Glucose 87 70 - 199 mg/dL [facility] Comment: Interpretive Data Fasting glucose >/= 126 [...] classification and Diagnosis of Diabetes Diabetes Care 202; 46: S19-S40. Current interpretive data was last revised 2022. Calcium 8.5 8.5 - 10.3 mg/dL [facility] Bilirubin, total 0.7 0.1 - 1.2 mg/dL [facility] Protein, pl 6.0(L) 6.5 - 8.5 g/dL [facility] Albumin 3.6 3.5 - 5.0 g/dL [facility] Alk phos 63 40 - 130 Units/L [facility] ALT 37 7 - 55 Units/L [facility] AST 40 10 - 50 Units/L [facility]A [facility] Blood 06/10/2025 6:45 AM CDT 06/10/2025 6:51 AM CDT Tania Lott MD PhD LAB BLOOD ORDERABLES Fin al Result [facility] Department [place] [address] * (ABNORMAL) CBC with auto differential (06/08/2025 8:12 AM CDT) WBC 2.11(L) 3.80 - 9.90 K/cumm Comment:Testing performed by : [facility], [address] [place] [address] Hgb 9.0(L) 13.0 - 17.5 g/dL [facility] Comment:Testing performed by : [facility], [address] [place] [address] Hct 25.8(L) 38.9 - 50.3 % CERAZRA BJ Comment:Testing performed by : [facility], [address] [place] [address] Plt 12(C) 150 - 400 K/cumm ANGELA BJ Comment: Results Consistent with Previous Results Testing performed by: [facility], [address] [place] [address] MPV 9.1 6.8 - 10.4 fL CERAZRA BJ Comment:Testing performed by : [facility], [address] [place] [address] RBC 2.96(L) 4.30 - 5.80 M/cumm CERAZRA BJ Comment:Testing performed by : [facility], [address] [place] [address] MCV 87.2 81.3 - 96.4 fL CERAZRA BJ Comment:Testing performed by : [facility], [address] [place], [place] [phone] MCH 30.4 27.1 - 33.3 pg ANGELA DUNAWAY Comment:Testing performed by : [facility], [address] [place], [place] [phone] MCHC 34.9 32.3 - 35.7 g/dL ANGELA DUNAWAY Comment:Testing performed by : [facility], [address] [place], [place] [phone] RDW CV 15.8(H) 11.1 - 14.9 % ANGELA [facility] Comment:Testing performed by : [facility], [address] [place], [place] [phone] NRBC abs 0.10(H) 0.00 - 0.01 K/cumm ANGELA [facility] Comment:Testing performed by : [facility], [address] [place], [place] [phone] Blood 06/08/2025 8:12 AM CDT 06/08/2025 8:18 AM CDT Narrative [facility] - 06/08/2025 8:30 AM CDT 06/08 06/11 06/14 Tania Lott MD PhD LAB BLOOD ORDERABLES Fin al Result [facility] Department [place] [address] * (ABNORMAL) Manual Differential (06/08/2025 8:12 AM CDT) Cells Counted 148 Comment:Testing performed by : [facility], [address] [place], [place] [phone] Neutrophil abs 1.41(L) 1.50 - 6.50 K/cumm ANGELA DUNAWAY Comment:Testing performed by : [facility], [address] [place], [place] [phone] Lymphocyte abs 0.63(L) 0.80 - 3.30 K/cumm CERNER [facility] Comment:Testing performed by : [facility], [address] [place] [phone] Monocyte abs 0.00(L) 0.20 - 0.80 K/cumm CERNER [facility] Comment:Testing performed by : [facility], [address] [place], [place] [phone] Eosinophil abs 0.04 0.00 - 0.50 K/cumm CERNER [facility] Comment:Testing performed by : [facility], [address] [place] [phone] Basophil abs 0.02 0.00 - 0.10 K/cumm CERNER [facility] Comment:Testing performed by : [facility], [address] [place] [address] Neutrophil pct 67.0 % CERNER BJ Comment: Interpretive Data Percent cell count reference ranges are not reported, since discordance with absolute values may lead to misinterpretation of CBC data. Current Interpretive Data was last revised on 2018. Testing performed by: [facility], [address] [place] [address] Lymphocyte pct 30.0 % CERNER BJ Comment: Interpretive Data Percent cell count reference ranges are not reported, since discordance with absolute values may lead to misinterpretation of CBC data. Current Interpretive Data was last revised on 2018. Testing performed by: [facility], [address] [place] [phone] Monocyte pct 0.0 % CERNER BJ Comment: Interpretive Data Percent cell count reference ranges are not reported, since discordance with absolute values may lead to misinterpretation of CBC data. Current Interpretive Data was last revised on 2018. Testing performed by: [facility], [address] [place] [phone] Eosinophil pct 2.0 % C[facility]ER [facility] Comment: Interpretive Data Percent cell count reference ranges are not reported, since discordance with absolute values may lead to misinterpretation of CBC data. Current Interpretive Data was last revised on 2018. Testing performed by: [facility], [address] [place] [phone] Basophil pct 1.0 % ANGELA [facility] Comment: Interpretive Data Percent cell count reference ranges are not reported, since discordance with absolute values may lead to misinterpretation of CBC data. Current Interpretive Data was last revised on 2018. Testing performed by: [facility], [address] [place] [phone] RBC morphology NRBCs present(A ) ANGELA [facility] Comment:Testing performed by : [facility], [address] [place] [phone] Hypochromasia 1+(A) ANGELA [facility] Comment:Testing performed by : [facility], [address] [place], [place] [phone] Anisocytosis 2+(A) ANGELA [facility] Comment:Testing performed by : [facility], [address] [place] [phone] Microcytes 1+(A) ANGELA [facility] Comment:Testing performed by : [facility], [address] [place] [phone] Macrocytes 1+(A) ANGELA [facility] Comment:Testing performed by : [facility], [address] [place] [phone] Target cells 1+(A) AN[facility]ELA [facility] Comment:Testing performed by : [facility], [address] [place] [phone] Platelet estimate Decreased (A) AN[facility]ELA [facility] Comment:Testing performed by : [facility], [address] [place] [phone] Blood 06/08/2025 8:12 AM CDT 06/08/2025 8:18 AM CDT us Tania Lott MD PhD LAB BLOOD ORDERABLES Fin al Result [facility] Department [place] [address] * Type and screen (06/08/2025 8:12 AM CDT) Benjy, indirect Negative ABO Rh B Positive [facility] Blood 06/08/2025 8:12 AM CDT 06/08/2025 8:24 AM CDT Narrative [facility] - 06/08/2025 9:17 AM CDT 06/08 9 9 Has the patient had Daratumumab or Isatuximab in the past 6 months?->Unknown us Tania Lott MD PhD LAB BLOOD BANK TEST ORDE PRIMO Final Result [facility] [place] [address] * eGFR (06/08/2025 8:02 AM CDT) Pathologist [facility] eGFR >90 >=60 mL/min/1. 73 m2 Comment: [...] of Race in Diagnosing Kidney Disease, JASN 2020). The CKD-EPI equation should not be used for patients with unstable renal function and has not been validated in children and those over 70. Current interpretive data was last reviewed 2021. Blood 06/08/2025 8:02 AM CDT 06/08/2025 8:23 AM CDT us Dimple Bailey MD PhD LAB BLOOD ORDERABLES Fi nal Result [place] [address] * (ABNORMAL) Uric acid (06/08/2025 8:02 AM CDT) Pathologist [facility] Uric acid 2.9(L) 3.0 - 8.0 mg/dL Blood 06/08/2025 8:02 AM CDT 06/08/2025 8:23 AM CDT Dimple Bailey MD PhD LAB BLOOD ORDERAB[place] [address] * Magnesium (06/08/2025 8:02 AM CDT) [facility] Magnesium 2.2 1.4 - 2.5 mg/dL Blood 06/08/2025 8:02 AM CDT 06/08/2025 8:23 AM CDT Dimple Bailey MD PhD LAB BLOOD ORDERAB[place] [address] * (ABNORMAL) Lactate dehydrogenase (LD) (06/08/2025 8:02 AM CDT) [facility] Lactate dehydrogenase (LDH) 329(H) 100 - 250 Units/L Blood 06/08/2025 8:02 AM CDT 06/08/2025 8:23 AM CDT Dimple Bailey MD PhD LAB BLOOD ORDERAB[place] [address] * Creatine kinase (CK), total (06/08/2025 8:02 AM CDT) CK 53 40 - 300 Units/L Blood 06/08/2025 8:02 AM CDT 06/08/2025 8:23 AM CDT us Dimple Bailey MD PhD LAB BLOOD ORDERABLES Fi nal Result [facility] Department [place] [address] * (ABNORMAL) Comprehensive metabolic panel (06/08/2025 8:02 AM CDT) Sodium 136 135 - 145 mmol/L Potassium, pl 3.8 3.3 - 4.9 mmol/L [facility] Chloride 100 97 - 110 mmol/L [facility] CO2 29 22 - 32 mmol/L [facility] Anion gap 7 2 - 15 mmol/L [facility] BUN 6 6 - 25 mg/dL [facility] Creatinine 0.83 0.80 - 1.30 mg/dL [facility] Glucose 96 70 - 199 mg/dL [facility] Comment: Interpretive Data Fasting glucose >/= 126 [...] interpretive data was last revised 2022. Calcium 8.9 8.5 - 10.3 mg/dL [facility] Bilirubin, total 0.8 0.1 - 1.2 mg/dL [facility] Protein, pl 6.2(L) 6.5 - 8.5 g/dL [facility] Albumin 3.7 3.5 - 5.0 g/dL [facility] Alk phos 63 40 - 130 Units/L [facility] ALT 35 7 - 55 Units/L [facility] AST 31 10 - 50 Units/L [facility] Blood 06/08/2025 8:02 AM CDT 06/08/2025 8:23 AM CDT Dimple Bailey MD PhD LAB BLOOD ORDERABLES Fi nal Result Performing Organization Address City/[facility]/ZIP Co de Phone Number [facility] [place] [address] * eGFR (06/05/2025 2:23 PM CDT) eGFR 87 >=60 mL/min/1. 73 m2 Comment: Interpretive Data [...] of Race in Diagnosing Kidney Disease, JASN 2020). The CKD-EPI equation should not be used for patients with unstable renal function and has not been validated in children and those over 70. Current interpretive data was last reviewed 2021. Blood 06/05/2025 2:23 PM CDT 06/05/2025 2:35 PM CDT us Keira Adma MD LAB BLOOD ORDERABLES Final Resul t Performing Organization Address City/[facility]/ZIP Co de Phone Number [facility] Department [place] [address] * (ABNORMAL) Basic metabolic panel (06/05/2025 2:23 PM CDT) Sodium 133(L) 135 - 145 mmol/L Potassium, pl 3.8 3.3 - 4.9 mmol/L [facility] Chloride 95(L) 97 - 110 mmol/L [facility] CO2 32 22 - 32 mmol/L [facility] Anion gap 6 2 - 15 mmol/L [facility] BUN 16 6 - 25 mg/dL [facility] Creatinine 1.00 0.80 - 1.30 mg/dL [facility] Glucose 99 70 - 199 mg/dL [facility] Comment: Interpretive Data Fasting glucose >/= 126 [...] interpretive data was last revised 2022. Calcium 8.9 8.5 - 10.3 mg/dL [facility] Blood 06/05/2025 2:23 PM CDT 06/05/2025 2:35 PM CDT Keira Adam MD LAB BLOOD ORDERABLES Final Resul t Performing Organization Address City/[facility] Co de Phone Number [facility] [place], [place] [id number] * Transfuse RBC (06/05/2025 6:45 AM CDT) Blood Keira Adam MD BLOOD TRANSFUSION ORDERABLES Fin al Result Performing Organization Address City/[facility] Co de Phone Number [facility] [place] [address] * Prepare RBC: 1 Units (06/05/2025 1:43 AM CDT) [facility] Signature Product code [id number] Unit Number [id number] [facility] Product Blood Type BPOS [facility] Dispense Status PRESUMED TRANSFUSED [facility] Blood Venous blood specimen / Unknown 06/05/2025 1:43 AM CDT 06/05/2025 1:43 AM CDT Narrative [facility] - 06/05/2025 8:00 PM CDT Are special requirements needed? (All products are leukoreduced and CMV- safe)- >Yes Date required:-[id number] Special Req 1:-Irradiated LRRBC # of [id number] Reasons:-BMT, Hgb <8 g/dL} Keira Adam MD BLOOD BANK PRODUCT ORDERABLES Fi nal Result [facility] Department [place] [address] * (ABNORMAL) Immature platelet fraction (06/05/2025 12:32 AM CDT) Pathologist [facility] IPF 13.5(H) 1.6 - 10.1 % Blood 06/05/2025 12:3 2 AM CDT 06/05/2025 12:46 AM CDT Keira Adam MD LAB BLOOD ORDERABLES Final Resul t Performing Organization Address City/[facility]/ZIP Co de Phone Number [facility] Department [place] [address] * eGFR (06/05/2025 12:32 AM CDT) eGFR 81 >=60 mL/min/1. 73 m2 Comment: Interpretive Data [...] interpretive data was last reviewed 2021. Blood 06/05/2025 12:3 2 AM CDT 06/05/2025 12:41 AM CDT us Keira Adam MD LAB BLOOD ORDERABLES Final Resul t [facility] Department [place] [address] * (ABNORMAL) Differential, auto (06/05/2025 12:32 AM CDT) Neutrophil abs 1.56 1.50 - 6.50 K/cumm Imm gran abs 0.02 0.00 - 0.10 K/cumm [facility] Lymphocyte abs 1.10 0.80 - 3.30 K/cumm [facility] Monocyte abs 0.05(L) 0.20 - 0.80 K/cumm [facility] Eosinophil abs 0.02 0.00 - 0.50 K/cumm [facility] Basophil abs 0.00 0.00 - 0.10 K/cumm [facility] Neutrophil pct 56.8 % [facility] Comment: Interpretive Data Percent cell count reference ranges are not reported, since discordance with absolute values may lead to misinterpretation of CBC data. Current Interpretive Data was last revised on 2018. Imm gran pct 0.7 % [facility] Comment: Interpretive Data Percent cell count reference ranges are not reported, since discordance with absolute values may lead to misinterpretation of CBC data. Current Interpretive Data was last revised on 2018. Lymphocyte pct 40.0 % [facility] Comment: Interpretive Data Percent cell count reference ranges are not reported, since discordance with absolute values may lead to misinterpretation of CBC data. Current Interpretive Data was last revised on 2018. Monocyte pct 1.8 % [facility] Comment: Interpretive Data Percent cell count reference ranges are not reported, since discordance with absolute values may lead to misinterpretation of CBC data. Current Interpretive Data was last revised on 2018. Eosinophil pct 0.7 % [facility] Comment: Interpretive Data Percent cell count reference ranges are not reported, since discordance with absolute values may lead to misinterpretation of CBC data. Current Interpretive Data was last revised on 2018. Basophil pct 0.0 % [facility] Comment: Interpretive Data Percent cell count reference ranges are not reported, since discordance with absolute values may lead to misinterpretation of CBC data. Current Interpretive Data was last revised on 2018. Blood 06/05/2025 12:3 2 AM CDT 06/05/2025 12:41 AM CDT us Keira Adam MD LAB BLOOD ORDERABLES Final Resul t [facility] Department [place] [address] * (ABNORMAL) CBC with auto differential (06/05/2025 12:32 AM CDT) WBC 2.62(L) 3.80 - 9.90 K/cumm Hgb 7.3(L) 13.0 - 17.5 g/dL [facility] Hct 20.3(L) 38.9 - 50.3 % [facility] Plt 22(C) 150 - 400 K/cumm [facility] Comment:No clot detected in sample. Platelet count confirmed by additional testing. Critical platelet count threshold determined by patient location: Outpatient:<50 K/cumm , Inpatient adults:<20 K/cumm , Inpatient pediatric:<25 K/cumm, BMT service:<10 K/cumm MPV 10.8 9.1 - 12.3 fL [facility] RBC 2.40(L) 4.30 - 5.80 M/cumm [facility] MCV 84.6 81.3 - 96.4 fL [facility] MCH 30.4 27.1 - 33.3 pg [facility] MCHC 36.0(H) 32.3 - 35.7 g/dL [facility] RDW CV 16.5(H) 11.1 - 14.9 % [facility] RDW SD 46.5 35.7 - 48.1 fL [facility] NRBC abs 0.08(H) 0.00 - 0.01 K/cumm [facility] Blood 06/05/2025 12:3 2 AM CDT 06/05/2025 12:41 AM CDT Keira Adam MD LAB BLOOD ORDERABLES Final Resul t Performing Organization Address City/[facility]/ZIP Co de Phone Number [facility] [place] [address] * Phosphorus (06/05/2025 12:32 AM CDT) [facility] Phosphorus, pl 3.5 2.3 - 4.5 mg/dL Blood 06/05/2025 12:3 2 AM CDT 06/05/2025 12:41 AM CDT Keira Adam MD LAB BLOOD ORDERABLES Final Resul t Performing Organization Address City/[facility] de Phone Number [facility] Department [place] [address] * (ABNORMAL) Basic metabolic panel (06/05/2025 12:32 AM CDT) [facility] Sodium 133(L) 135 - 145 mmol/L Potassium, pl 3.1(L) 3.3 - 4.9 mmol/L [facility] Chloride 92(L) 97 - 110 mmol/L [facility] CO2 34(H) 22 - 32 mmol/L [facility] Anion gap 7 2 - 15 mmol/L [facility] BUN 20 6 - 25 mg/dL [facility] Creatinine 1.06 0.80 - 1.30 mg/dL [facility] Glucose 101 70 - 199 mg/dL [facility] Comment: Interpretive Data Fasting glucose >/= 126 [...] classification and Diagnosis of Diabetes Diabetes Care 202; 46: S19-S40. Current interpretive data was last revised 2022. Calcium 8.9 8.5 - 10.3 mg/dL [facility] Blood 06/05/2025 12:3 2 AM CDT 06/05/2025 12:41 AM CDT Narrative [facility] - 06/05/2025 1:09 AM CDT Daily except Saturday and . Morning draw. us Keira Adam MD LAB BLOOD ORDERABLES Final Resul t [facility] Department [place] [address] * eGFR (06/04/2025 4:40 PM CDT) eGFR 81 >=60 mL/min/1. 73 m2 Comment: Interpretive Data [...] of Race in Diagnosing Kidney Disease, JASN 2020). The CKD-EPI equation should not be used for patients with unstable renal function and has not been validated in children and those over 70. Current interpretive data was last reviewed 2021. Blood 06/04/2025 4:40 PM CDT 06/04/2025 6:33 PM CDT Keira Adam MD LAB BLOOD ORDERABLES Final Resul t Performing Organization Address [facility] Co de Phone Number [facility] Department [place] [address] * (ABNORMAL) Basic metabolic panel (06/04/2025 4:40 PM CDT) [facility] Sodium 136 135 - 145 mmol/L Potassium, pl 3.4 3.3 - 4.9 mmol/L [facility] Chloride 94(L) 97 - 110 mmol/L [facility] CO2 33(H) 22 - 32 mmol/L [facility] Anion gap 9 2 - 15 mmol/L [facility] BUN 22 6 - 25 mg/dL [facility] Creatinine 1.06 0.80 - 1.30 mg/dL [facility] Glucose 114 70 - 199 mg/dL [facility] Comment: Interpretive Data Fasting glucose >/= 126 [...] interpretive data was last revised 2022. Calcium 9.0 8.5 - 10.3 mg/dL [facility] Blood 06/04/2025 4:40 PM CDT 06/04/2025 6:33 PM CDT Keira Adam MD LAB BLOOD ORDERABLES Final Resul t Performing Organization Address [facility] Co de Phone Number [facility] Department [place] [address] * Flow Leukemia/Lymphoma Bone marrow (06/04/2025 12:40 PM CDT) Patel Stain Test Completed Leukemia/Lymp [place] Result See separate Surgical Pathology report. 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 [place] [address] Note to Patients: This report may contain a detailed description of human tissue sent by a health care provider to the laboratory for pathologic evaluation. The content of this report is essential for diagnosis and may provide important critical findings. This information may be unfamiliar to patients to review without a medical professional present. It is advised that the patient review this report in the presence of a health care provider who can answer questions and explain the details. SURGICAL PATHOLOGY REPORT FINAL WITH ADDENDUM Patient Name: TAMMY WRIGHT Gender: M : 1965 (Age: 60) Address: [address] [place] [id number] Hospital #: [id number] Taken:06/04/2025 Received:06/04/2025 Reported: 06/08/2025 Patient Type: [facility] Inpatient Service: BoneMarTranspl Location: [place] [id number] Physician(s): Carlene Leon M.D. MASTER Yang Diagnosis: Bone marrow, left posterior iliac crest, core biopsy, clot, and aspirate: - Hypocellular bone marrow with panhypoplasia - No morphologic evidence of acute leukemia - See comment rc/06/08/2025 13:53 By this signature, I attest that the above diagnosis is based upon my personal examination of the slides(and/or other material indicated in the diagnosis). Tania Allen M.D. Report Electronically Reviewed and Signed Out By Tania Allen M.D. 06/08/2025 17:14:44 Diagnosis Comment For details on the peripheral blood smear (if submitted), bone marrow aspirate, and core biopsy, please see the attached synoptic report. If applicable, correlation with concurrent flow cytometry (Addenda/Procedures below), cytogenetics/FISH, and molecular studies is suggested for full evaluation. Microscopic Description and Comment: Microscopic examination substantiates the above cited diagnosis. History: The patient is a 60-year-old man with a history of acute myeloid leukemia with FLT3 mutation and YUNG. He was on Aza/Aroldo 05/24/25. Operative procedure: Bone marrow biopsy. Specimen(s) Received: A: Bone marrow biopsy, left posterior iliac crest B: Bone Marrow Clot - BJ C: Bone marrow, left aspirate for flow cytometry Gross Description: Received in two formalin jars labeled with the patient's identifiers. A. Received in formalin, labeled LIC core and consists of a single red cores of bone with attached hemorrhagic material measuring 1.7 cm in length by 0.3 cm in diameter. Labeled A1. EDTA decalcification.. Jar 0. B. Received in formalin, labeled LIC clot and consists of a 1.9 x 1.7 x 0.6 cm fragment of hemorrhagic material. Labeled B1. Jar 0. sxst/06/04/2025 15:34 PA(s): Zelda Young CBC: Date: 06/04/25 WBCs: 3.04x10^3/mcl Hemoglobin: 8.9g/dl Hematocrit: 24.9% Platelets: 9x10^3/mcl Mean corpuscular volume (MCV): 84.4fl Red cell distribution width (RDW-CV): 16.7% Neutrophils, absolute: 2.45 K/cumm Lymphocytes, absolute: 0.49 K/cumm Monocytes, absolute: 0.04 K/cumm Eosinophils, absolute: 0.02 K/cumm Basophils, absolute: 0.00 K/cumm Neutrophils: 80.6% Lymphocytes: 16.1% Monocytes: 1.3% Eosinophils: 0.7% Basophils: 0.0% Peripheral blood smear (Patel-Giemsa): The peripheral blood morphology reflects the CBC values. Bone marrow aspirate smear (Patel-Giemsa stain): Quality: Adequate Spicules: Present Marrow cellularity: Decreased Myeloid maturation: Normal Erythroid maturation: Normal Myeloid/Erythroid Ratio: Decreased Megakaryocyte number: Decreased Megakaryocytic maturation: Normal Lymphocytes: Normal Plasma cells: Increased Iron: Gale Score 5-6 (Increased). Gale score is a grading method for interpretation of bone marrow iron stain and provides an assessment of total bone marrow iron stores. Differential count: Total # of Cells Counted:200 Blasts: 0 Promyelocytes: 0 Myelocytes+Metamyelocytes:10 Bands+Neutrophils:33 Eosinophils: 1 Basophils: 2 Plasma cells: 24 Lymphocytes: 7 Monocytes: 2 Erythroids: 21 Bone marrow core biopsy (decalcified, H&E and Leder stains): Left, iliac crest Quality: Adequate, Hemorrhagic Cellularity: 20% Myeloid maturation: decreased Erythroid maturation: Left-shifted, decreased The Leder stain shows that the Myeloid/Erythroid Ratio is: Decreased Megakaryocyte number: Decreased Megakaryocytic maturation: Normal The Leder stain is used to assess for lymphoid aggregates: None Plasma cells: Normal Reticulin and Trichrome stains show: No significant fibrosis (MF-0) CLOT SECTION: The bone marrow clot section including Leder and H&E stains are: Consist of clotted blood with minimal evaluable marrow By this signature, I attest that the above diagnosis is based upon my personal examination of the slides(and/or other material). Addenda/Procedures Flow Cytometry Ordered:06/04/2025Status:Signed OutFlow Cytometry Complete:06/08/2025y:Tania Allen M.D.Flow Cytometry Signed Out: 06/08/2025 Diagnosis Bone marrow, left aspirate for flow cytometry: - No significant myeloid blast population identified (see comment) Comment Flow cytometry analysis shows the lymphocyte-gated events account for 53% of the overall cellularity of the specimen. The CD3+ T-cells comprise 12% of events and show no significant loss of hardwick T- cell antigens. The CD4 to CD8 ratio is within normal limits. There is a small population of CD56+ events consistent with natural killer cells. There is no overt increase in CD38+ plasma cells. The CD45 dim-gated events are <1% of overall cellularity, and CD34+ events are not increased. Correlation with morphology (if submitted), clinical and laboratory data is recommended. A malignant process cannot be excluded solely on the basis of this assay. A Patel-Giemsa stained slide from the flow cytometry specimen was examined for internal quality assurance project manager purposes. By this signature, I attest that the above diagnosis is based upon my personal examination of the slides(and/or other material indicated in the diagnosis). Report Electronically Reviewed and Signed Out By Tania Allen M.D. 06/08/2025 17:12:02 The performance characteristics of some immunohistochemical stains, fluorescence in-situ hybridization tests and immunophenotyping by flow cytometry cited in this report (if any) were determined by the Surgical Pathology and Flow Cytometry Departments at [facility] as part of an ongoing quality checker program and in compliance with federally mandated regulations drawn from the Clinical Laboratory Improvement Act of 1988 (CLIA '88). Some of these tests rely on the use of analyte specific reagents and are subject to specific labeling requirements by the US Food and Drug Administration. Such diagnostic tests may only be performed in a facility that is certified by the Department of Health and Human Services as a high complexity laboratory under CLIA '88. The FDA has determined that such clearance or approval is not necessary. This test is used for clinical purposes. It should not be regarded as investigational or for research. Nevertheless, federal rules concerning the medical use of analyte specific reagents require that the following disclaimer be attached to the report: This test was developed and its performance characteristics determined by the Surgical Pathology and Flow Cytometry Departments of [facility]. It has not been cleared or approved by the U. S. Food and Drug Administration. IMAGES AND SCANNED DOCUMENTS, IF INCLUDED, ONLY VIEWABLE IN PDF VERSION OF REPORT Bridget Graham NP LAB PATHOLOGY ORDERABLES Fin al Result PATHOLOGY [facility] 3rd Floor [place], [place] [phone] * XR Chest 1 View (06/04/2025 10:40 AM CDT) Anatomical Region Laterality Modality Body, Chest N/A Digital Radiogra phy 06/04/2025 10:5 6 AM CDT Impressions 06/04/2025 10:56 AM CDT Comparison 05/16/2025. Left chest wall transvenous pacer is in unchanged configuration. Clear lungs. No consolidation pleural effusion or pneumothorax. Heart size is unchanged. Electronically signed by: Jhonny Sue M.D. Narrative 06/04/2025 10:56 AM CDT EXAMINATION: 1 view chest radiograph Procedure Note Jhonny Sue MD - 06/04/2025 EXAMINATION: 1 view chest radiograph IMPRESSION: Comparison 05/16/2025. Left chest wall transvenous pacer is in unchanged configuration. Clear lungs. No consolidation pleural effusion or pneumothorax. Heart size is unchanged. Electronically signed by: Jhonny Sue M.D. us Keira Adam MD IMG XR PROCEDURES Final Result * Cortisol (06/04/2025 9:51 AM CDT) Cortisol 14.3 4.8 - 19.5 mcg/dL Comment: Interpretive Data: Morning hours 6-10 a.m. 4.8 - 19.5 mcg/dL Afternoon hours 4-8 p.m. 2.5 - 11.9 mcg/dL This analyte undergoes marked diurnal variation. Current interpretive data was last revised 24. Blood 06/04/2025 9:51 AM CDT 06/04/2025 10:02 AM CDT us Keira Adam MD LAB BLOOD ORDERABLES Final Resul t [facility] Department [place] [address] * Transfuse platelets (06/04/2025 7:49 AM CDT) Keira Adam MD BLOOD TRANSFUSION ORDERABLES Fin al Result Performing Organization Address City/[facility]/[place] [address] * Prepare platelets: 1 Units (06/04/2025 4:30 AM CDT) [facility] Product code [id number] Unit Number [id number] I [facility] Product Blood Type OPOS [facility] Dispense Status PRESUMED TRANSFUSED [facility] Blood Venous blood specimen / Unknown 06/04/2025 4:30 AM CDT 06/04/2025 4:30 AM CDT Narrative [facility] - 06/04/2025 8:00 PM CDT Are special requirements needed? (all products are leukoreduced)->Yes Date required:-[id number] Special Req 1:-Irradiated PLT # of Units:-1-Units Reasons:-Stable, non-bleeding, plt < 10 K/cumm} Keira Adam MD BLOOD BANK PRODUCT ORDERABLES Fi nal Result Performing Organization Address [facility] Co de Phone Number [facility] Department [place] [address] * (ABNORMAL) Immature platelet fraction (06/04/2025 3:59 AM CDT) [facility] IPF 29.6(H) 1.6 - 10.1 % Blood 06/04/2025 3:59 AM CDT 06/04/2025 4:16 AM CDT Keira Adam MD LAB BLOOD ORDERABLES Final Resul t Performing Organization Address [facility] [place] [address] * eGFR (06/04/2025 3:59 AM CDT) [facility] eGFR 67 >=60 mL/min/1. 73 m2 Comment: Interpretive Data [...] of Race in Diagnosing Kidney Disease, JASN 2020). The CKD-EPI equation should not be used for patients with unstable renal function and has not been validated in children and those over 70. Current interpretive data was last reviewed 2021. Blood 06/04/2025 3:59 AM CDT 06/04/2025 4:11 AM CDT us Keira Adam MD LAB BLOOD ORDERABLES Final Resul t [facility] Department [place] [address] * (ABNORMAL) Differential, auto (06/04/2025 3:59 AM CDT) [facility] Neutrophil abs 2.45 1.50 - 6.50 K/cumm Imm gran abs 0.04 0.00 - 0.10 K/cumm [facility] Lymphocyte abs 0.49(L) 0.80 - 3.30 K/cumm [facility] Monocyte abs 0.04(L) 0.20 - 0.80 K/cumm [facility] Eosinophil abs 0.02 0.00 - 0.50 K/cumm [facility] Basophil abs 0.00 0.00 - 0.10 K/cumm [facility] Neutrophil pct 80.6 % [facility] Comment: Interpretive Data Percent cell count reference ranges are not reported, since discordance with absolute values may lead to misinterpretation of CBC data. Current Interpretive Data was last revised on 2018. Imm gran pct 1.3 % [facility] Comment: Interpretive Data Percent cell count reference ranges are not reported, since discordance with absolute values may lead to misinterpretation of CBC data. Current Interpretive Data was last revised on 2018. Lymphocyte pct 16.1 % [facility] Comment: Interpretive Data Percent cell count reference ranges are not reported, since discordance with absolute values may lead to misinterpretation of CBC data. Current Interpretive Data was last revised on 2018. Monocyte pct 1.3 % [facility] Comment: Interpretive Data Percent cell count reference ranges are not reported, since discordance with absolute values may lead to misinterpretation of CBC data. Current Interpretive Data was last revised on 2018. Eosinophil pct 0.7 % [facility] Comment: Interpretive Data Percent cell count reference ranges are not reported, since discordance with absolute values may lead to misinterpretation of CBC data. Current Interpretive Data was last revised on 2018. Basophil pct 0.0 % [facility] Comment: Interpretive Data Percent cell count reference ranges are not reported, since discordance with absolute values may lead to misinterpretation of CBC data. Current Interpretive Data was last revised on 2018. Blood 06/04/2025 3:59 AM CDT 06/04/2025 4:12 AM CDT us Keira Adam MD LAB BLOOD ORDERABLES Final Resul t [facility] Department [place] [address] * (ABNORMAL) CBC with auto differential (06/04/2025 3:59 AM CDT) WBC 3.04(L) 3.80 - 9.90 K/cumm Hgb 8.9(L) 13.0 - 17.5 g/dL [facility] Hct 24.9(L) 38.9 - 50.3 % [facility] Plt 9(C) 150 - 400 K/cumm [facility] Comment:This result has been called to nicole carvalho rn by [email or web address] on 06/04/2025 04:25:32, and has been read back. MPV Not Measured 9.1 - 12.3 fL [facility] RBC 2.95(L) 4.30 - 5.80 M/cumm [facility] MCV 84.4 81.3 - 96.4 fL [facility] MCH 30.2 27.1 - 33.3 pg [facility] MCHC 35.7 32.3 - 35.7 g/dL [facility] RDW CV 16.7(H) 11.1 - 14.9 % [facility] RDW SD 46.4 35.7 - 48.1 fL [facility] NRBC abs 0.15(H) 0.00 - 0.01 K/cumm [facility] Blood 06/04/2025 3:59 AM CDT 06/04/2025 4:12 AM CDT Keira Adam MD LAB BLOOD ORDERABLES Final Resul t Performing Organization Address City/[facility] Co de Phone Number [facility] Department [place] [address] * (ABNORMAL) Phosphorus (06/04/2025 3:59 AM CDT) Pathologist [facility] Phosphorus, pl 2.2(L) 2.3 - 4.5 mg/dL Blood 06/04/2025 3:59 AM CDT 06/04/2025 4:11 AM CDT Keira Adam MD LAB BLOOD ORDERABLES Final Resul t Performing Organization Address [facility] Co de Phone Number [facility] Department [place] [address] * (ABNORMAL) Basic metabolic panel (06/04/2025 3:59 AM CDT) Sodium 129(L) 135 - 145 mmol/L Potassium, pl 3.3 3.3 - 4.9 mmol/L [facility] Chloride 87(L) 97 - 110 mmol/L [facility] CO2 34(H) 22 - 32 mmol/L [facility] Anion gap 8 2 - 15 mmol/L [facility] BUN 28(H) 6 - 25 mg/dL [facility] Creatinine 1.25 0.80 - 1.30 mg/dL [facility] Glucose 108 70 - 199 mg/dL [facility] Comment: Interpretive Data Fasting glucose >/= 126 [...] interpretive data was last revised 2022. Calcium 9.0 8.5 - 10.3 mg/dL [facility] Blood 06/04/2025 3:59 AM CDT 06/04/2025 4:11 AM CDT Narrative [facility] - 06/04/2025 4:41 AM CDT Daily except Saturday and . Morning draw. us Keira Adam MD LAB BLOOD ORDERABLES Final Resul t [facility] Department [place] [address] * Urinalysis reflex to microscopic and culture Urine, clean voided (06/04/2025 3:27 AM CDT) Color, ur Straw Yellow Clarity, ur Clear Clear [facility] Specific gravity, ur 1.018 1.003 - 1.030 [facility] pH, urine 6.5 [facility] Comment: Interpretive Data U rine pH is affected by diet, medications, systemic acid-base disturbances, and renal tubular function. pH may affect urinary stone formation. For example, urine pH below 6.0 may help reduce the tendency for calcium phosphate stones and pH greater than 6.0 may reduce the tendency for uric acid stone formation. Source: [facility] Current Interpretive Data was last revised on 2017 Protein, ur ql Trace Negative [facility] Glucose, ur ql Negative Negative [facility] Ketones, ur Negative Negative [facility] Bilirubin, ur Negative Negative [facility] Blood, ur Negative Negative [facility] Urobilinogen, ur <2.0 <2.0 mg/dL [facility] Nitrite, ur Negative Negative [facility] Leukocyte esterase, ur Negative Negative [facility] UA reflex comment Reflex conditions for microscopic UA and culture not met. [facility] Urine, clean voided 06/04/2025 3:27 AM CDT 06/04/2025 3:35 AM CDT us Keira Adam MD LAB MICROBIOLOGY - GENERAL ORDER BIANKA Final Result Performing Organization Address [facility] Co de Phone Number [facility] [place] [address] * Sodium, urine, random (06/04/2025 3:27 AM CDT) Sodium, ur <20 mmol/L Comment: Repeated and Verified Interpretive Data No reference range established. Current interpretive data was last revised 2019. Urine 06/04/2025 3:27 AM CDT 06/04/2025 3:39 AM CDT us Keira Adam MD LAB URINE ORDERABLES Final Resul t Performing Organization Address [facility] Co de Phone Number [facility] [place] [address] * Osmolality, urine (06/04/2025 3:27 AM CDT) Osmo, ur 507 mOsm/kg Urine 06/04/2025 3:27 AM CDT 06/04/2025 3:39 AM CDT Keira Adam MD LAB URINE ORDERABLES Final Resul t Performing Organization Address [facility] de Phone Number ANGELA [facility] Department [place] [address] * eGFR (06/03/2025 9:54 PM CDT) eGFR 63 >=60 mL/min/1. 73 m2 Comment: Interpretive Data [...] of Race in Diagnosing Kidney Disease, JASN 2020). The CKD-EPI equation should not be used for patients with unstable renal function and has not been validated in children and those over 70. Current interpretive data was last reviewed 2021. Blood 06/03/2025 9:54 PM CDT 06/03/2025 10:10 PM CDT Keira Adam MD LAB BLOOD ORDERABLES Final Resul t Performing Organization Address [facility] Co de Phone Number ANGLEA DUNAWAY [facility] Department [place] [address] * Uric acid (06/03/2025 9:54 PM CDT) Uric acid 7.8 3.0 - 8.0 mg/dL Blood 06/03/2025 9:54 PM CDT 06/03/2025 10:10 PM CDT us Tania Lott MD PhD LAB BLOOD ORDERABLES Fin al Result [facility] Department [place] [address] * (ABNORMAL) Osmolality, blood (06/03/2025 9:54 PM CDT) [facility] Osmo 270(L) 275 - 300 mOsm/kg Blood 06/03/2025 9:54 PM CDT 06/03/2025 10:10 PM CDT Keira Adam MD LAB BLOOD ORDERABLES Final Resul t Performing Organization Address [facility] Co de Phone Number [facility] Department [place] [address] * (ABNORMAL) Basic metabolic panel (06/03/2025 9:54 PM CDT) [facility] Sodium 130(L) 135 - 145 mmol/L Potassium, pl 3.1(L) 3.3 - 4.9 mmol/L [facility] Chloride 86(L) 97 - 110 mmol/L [facility] CO2 36(H) 22 - 32 mmol/L [facility] Anion gap 8 2 - 15 mmol/L [facility] BUN 30(H) 6 - 25 mg/dL [facility] Creatinine 1.32(H) 0.80 - 1.30 mg/dL [facility] Glucose 103 70 - 199 mg/dL [facility] Comment: Interpretive Data Fasting glucose >/= 126 [...] interpretive data was last revised 2022. Calcium 8.8 8.5 - 10.3 mg/dL [facility] Blood 06/03/2025 9:54 PM CDT 06/03/2025 10:10 PM CDT us Keira Adam MD LAB BLOOD ORDERABLES Final Resul t Performing Organization Address [facility] [place] [address] * Sepsis Lactate w/ Reflex (06/03/2025 5:42 PM CDT) [facility] Sepsis Lactate 1.8 0.7 - 2.0 mmol/L Blood 06/03/2025 5:42 PM CDT 06/03/2025 6:00 PM CDT Narrative [facility] - 06/03/2025 6:09 PM CDT Obtain Lactate w/ reflex STAT. Lactate result greater than 2 mmol/L is abnormal. Call provider immediately upon receiving abnormal lactate result. If results are abnormal, Bridge will automatically activate two additional lactate levels. One to be drawn 3 hrs after the initial lactate level was drawn. If the second sample is > 2.0, a rule will fire to order an additional Lactate timed 3 hours from the second order's collection time. us Keira Adam MD LAB BLOOD ORDERABLES Final Resul t Performing Organization Address [facility] de Phone Number [place] [address] * ECG 12 lead (06/03/2025 3:32 PM CDT) [facility] Ventricular Rate EKG/Min 60 BPM [facility] Atrial Rate 60 BPM [facility] AR-Interval (MSEC) 178 ms [facility] QRS-Interval (MSEC) 104 ms [facility] QT-Interval (MSEC) 534 ms [facility] QTc 534 ms [facility] P Mcdonough 16 degrees [facility] R Mcd[place]ough 98 degrees [facility] T Mcdonough -2 degrees [facility] Diagnosis Normal sinus rhythm Rightward axis Abnormal QRS-T angle, consider primary T wave abnormality Prolonged QT Abnormal ECG Confirmed by Quader MD, Nishath ([id number]) on 06/08/2025 8:52:44 AM [facility] 06/03/2025 3:32 PM CDT 06/08/2025 8:52 AM CDT us Keira Adam MD ECG ORDERABLES Final Result [facility] * Respiratory pathogen panel Nasopharyngeal (06/03/2025 3:22 PM CDT) Pathologist [facility] Influenza A RNA Not Detected Not Detected Influenza B RNA Not Detected Not Detected [facility] RSV RNA Not Detected Not Detected [facility] COVID-19 RNA Not Detected Not Detected [facility] Coronavirus 229E RNA Not Detected Not Detected [facility] Coronavirus HKU1 RNA Not Detected Not Detected [facility] Coronavirus NL63 RNA Not Detected Not Detected [facility] Coronavirus OC43 RNA Not Detected Not Detected [facility] Adenovirus DNA Not Detected Not Detected [facility] Metapneumovirus RNA Not Detected Not Detected [facility] Rhinovirus/Enterov irus RNA Not Detected Not Detected [facility] Parainfluenza 1 RNA Not Detected Not Detected [facility] Parainfluenza 2 RNA Not Detected Not Detected [facility] Parainfluenza 3 RNA Not Detected Not Detected [facility] Parainfluenza 4 RNA Not Detected Not Detected [facility] B. pertussis DNA Not Detected Not Detected [facility] B. parapertussis DNA Not Detected Not Detected [facility] C. pneumoniae DNA Not Detected Not Detected [facility] M. pneumoniae DNA Not Detected Not Detected [facility] Nasopharyngeal 06/03/2025 3: 22 PM CDT 06/03/2025 4:35 PM CDT Narrative [facility] - 06/03/2025 5:56 PM CDT Is the Patient experiencing symptoms consistent with COVID?->Yes Surveillance testing for transplant patient?->No Interpretive Data The [employer]ator FilmArray Respiratory Panel (RP2.1) assay is a multiplexed real-time PCR based nucleic acid test capable of simultaneous qualitative detection and identification of multiple respiratory viral and bacterial nucleic acids, including SARS Coronavirus 2 (the causative agent of COVID-19). The following bacteria, viruses and virus subtypes can be identified using the FilmArray RP2.1 assay: Bordetella pertussis, Bordetella parapertussis, Chlamydia pneumoniae, Mycoplasma pneumoniae, Adenovirus, SARS Coronavirus 2, seasonal coronaviruses (Coronavirus HKU1, Coronavirus NL63, Coronavirus 229E, and Coronavirus OC43), Influenza A, Influenza A subtype H1, Influenza A subtype H3, Influenza A subtype 2009 H1, Influenza B, Metapneumovirus, Parainfluenza 1, Parainfluenza 2, Parainfluenza 3, Parainfluenza 4, RSV, Rhinovirus/Enterovirus. Due to the genetic similarity between human Rhinovirus and Enterovirus, the FilmArray RP2.1 assay cannot reliably differentiate them. Coronavirus OC43 may cross-react with some isolates of Coronavirus HKU1. A dual positive result may be due to cross-reactivity or may indicate a co- infection. The detection and identification of specific viral and bacterial nucleic acids from individuals exhibiting signs and symptoms of a respiratory infection aids in the diagnosis of respiratory infection if used in conjunction with other clinical and epidemiological information. The results of this test should not be used as the sole basis for diagnosis, treatment, or other management decisions. Negative results in the setting of a respiratory illness may be due to infection with pathogens that are not detected by this test. Positive results do not rule out infection/co-infection with other organisms. The agent(s) detected by the FilmArray RP2.1 may not be the definite cause of disease. Additional testing (lab, imaging, etc.) may be necessary when evaluating a patient with possible respiratory tract infection. The FilmArray RP2.1 assay has FDA clearance for testing of [employer]LE [employer] swabs. The performance of additional specimen types has been assessed by the performing laboratory. The performance characteristics of this assay have been determined by [facility] Molecular Infectious Disease Laboratory. Current interpretive data was last revised on 22. us Keira Adam MD LAB MICROBIOLOGY - GENERAL ORDER BIANKA Final Result [facility] Department [place] [address] * Blood culture Blood (06/03/2025 9:01 AM CDT) Report Final Report: No growth Blood 06/03/2025 9:01 AM CDT 06/03/2025 11:48 AM CDT Vanda DUNAWAY - 06/07/2025 12:00 PM CDT 1. Blood cultures are incubated for 4 days on a continuously monitored blood culture system. The first report of a negative culture is issued within 24 hours of receipt of the specimen in the laboratory. 2. Positive culture results are reported as soon as they are detected. 3. The most important factor for detection of microbes in the setting of bloodstream infection is the volume of blood submitted for culture. Failure to collect an optimal blood volume can result in false negative blood cultures. 4. For pediatric patients, the recommended blood volume to collect follows a weight based strategy. See the electronic test catalog for collection instructions. 5. For positive blood cultures, a rapid molecular test may be performed for organism identification using the ezequiel ePlex blood culture identification panel for gram positive (BCID-GP) and gram negative (BCID-GN) organisms. This nucleic acid amplification test detects microbial DNA in positive blood culture broth. This assay has been cleared by the [place] Food and Drug Administration and its performance characteristics have been verified by the [facility] Microbiology Laboratory. For questions about this culture, contact the Microbiology Laboratory at [phone]. Interpretive data was last revised on 24. Tania Lott MD PhD LAB MICROBIOLOGY - [facility] AL ORDERABLES Final Result ANGELA [facility] Department [place] [address] * (ABNORMAL) Sepsis Lactate w/ Reflex (06/03/2025 9:00 AM CDT) Sepsis Lactate 3.3(H) 0.7 - 2.0 mmol/L Blood 06/03/2025 9:00 AM CDT 06/03/2025 9:20 AM CDT Tania Lott MD PhD LAB BLOOD ORDERABLES Fin al Result Performing Organization Address [facility] Co de Phone Number ANGELA [facility] Department [place] [address] * Blood culture Blood (06/03/2025 9:00 AM CDT) Report Final Report: No growth Blood 06/03/2025 9:00 AM CDT 06/03/2025 11:48 AM CDT Narrative [facility] - 06/07/2025 12:00 PM CDT 1. Blood cultures are incubated for 4 days on a continuously monitored blood culture system. The first report of a negative culture is issued within 24 hours of receipt of the specimen in the laboratory. 2. Positive culture results are reported as soon as they are detected. 3. The most important factor for detection of microbes in the setting of bloodstream infection is the volume of blood submitted for culture. Failure to collect an optimal blood volume can result in false negative blood cultures. 4. For pediatric patients, the recommended blood volume to collect follows a weight based strategy. See the electronic test catalog for collection instructions. 5. For positive blood cultures, a rapid molecular test may be performed for organism identification using the ezequiel ePlex blood culture identification panel for gram positive (BCID-GP) and gram negative (BCID-GN) organisms. This nucleic acid amplification test detects microbial DNA in positive blood culture broth. This assay has been cleared by the [place] Food and Drug Administration and its performance characteristics have been verified by the [facility] Microbiology Laboratory. For questions about this culture, contact the Microbiology Laboratory at [phone]. Interpretive data was last revised on 24. Tania Lott MD PhD LAB MICROBIOLOGY - GENER AL ORDERABLES Final Result Performing Organization Address [facility] Co de Phone Number ANGELA [facility] Department [place] [address] * (ABNORMAL) eGFR (06/03/2025 7:08 AM CDT) eGFR 50(L) >=60 mL/min/1. 73 m2 Comment: Interpretive Data [...] of Race in Diagnosing Kidney Disease, JASN 2020). The CKD-EPI equation should not be used for patients with unstable renal function and has not been validated in children and those over 70. Current interpretive data was last reviewed 2021. Blood 06/03/2025 7:08 AM CDT 06/03/2025 7:16 AM CDT us Tania Lott MD PhD LAB BLOOD ORDERABLES Fin al Result [facility] [employer] [place] [address] * Critical Result Callback Chemistry (06/03/2025 7:08 AM CDT) Date Notified [id number] Time Notified 754 AN[facility]A [facility] TestName Potassium Plas ANGELA DUNAWAY Called/Read Back Tania DUNAWAY Credentials MARTINA DUNAWAY Called By cyndi DUNAWAY Blood 06/03/2025 7:08 AM CDT 06/03/2025 7:16 AM CDT us Tania Lott MD PhD LAB BLOOD ORDERABLES Fin al Result [facility] [place] [address] * (ABNORMAL) CMV, IgG Blood (06/03/2025 7:08 AM CDT) [facility] CMV IgG Positive( A) Negative Comment: Interpretive Data Negative - Individuals with negative CMV IgG results are presumed to not have had prior exposure or infection with CMV and are, therefore, considered susceptible to primary infection. Equivocal - Equivocal results may occur during acute infection or may be due to nonspecific binding reactions. Submit an additional sample for testing if clinically indicated. Positive - Indicates presence of detectable CMV IgG antibody. Results indicate past or recent CMV infection. Blood 06/03/2025 7:08 AM CDT 06/03/2025 8:26 AM CDT Tania Lott MD PhD LAB MICROBIOLOGY - GENER AL ORDERABLES Final Result Performing Organization Address [facility] [place] [address] * (ABNORMAL) Lactate dehydrogenase (LD) (06/03/2025 7:08 AM CDT) [facility] Lactate dehydrogenase (LDH) 377(H) 100 - 250 Units/L Blood 06/03/2025 7:08 AM CDT 06/03/2025 7:16 AM CDT Tania Lott MD PhD LAB BLOOD ORDERABLES Fin al Result Performing Organization Address City/[facility]/[place] [address] * (ABNORMAL) Comprehensive metabolic panel (06/03/2025 7:08 AM CDT) [facility] Sodium 129(L) 135 - 145 mmol/L Potassium, pl 2.2(C) 3.3 - 4.9 mmol/L [facility] Comment:Reviewed Chloride 78(L) 97 - 110 mmol/L [facility] CO2 35(H) 22 - 32 mmol/L [facility] Anion gap 16(H) 2 - 15 mmol/L [facility] BUN 31(H) 6 - 25 mg/dL [facility] Creatinine 1.59(H) 0.80 - 1.30 mg/dL [facility] Glucose 141 70 - 199 mg/dL [facility] Comment: Interpretive Data Fasting glucose >/= 126 [...] interpretive data was last revised 2022. Calcium 9.8 8.5 - 10.3 mg/dL [facility] Bilirubin, total 1.6(H) 0.1 - 1.2 mg/dL [facility] Protein, pl 7.4 6.5 - 8.5 g/dL [facility] Albumin 4.4 3.5 - 5.0 g/dL [facility] Alk phos 68 40 - 130 Units/L [facility] ALT 56(H) 7 - 55 Units/L [facility] AST 55(H) 10 - 50 Units/L [facility] Blood 06/03/2025 7:08 AM CDT 06/03/2025 7:16 AM CDT Tania Lott MD PhD LAB BLOOD ORDERABLES Fin al Result [facility] Department [place] [address] * (ABNORMAL) CBC with auto differential (06/03/2025 7:06 AM CDT) WBC 4.23 3.80 - 9.90 K/cumm Comment:Testing performed by : [facility], [address] [place] [phone] Hgb 11.2(L) 13.0 - 17.5 g/dL CERNER BJ Comment:Testing performed by : [facility], [address] [place], [place] [id number] Hct 31.6(L) 38.9 - 50.3 % CERNER BJ Comment:Testing performed by : [facility], [address] [place], [place] [id number] Plt 16(C) 150 - 400 K/cumm CERNER BJ Comment: Critical Result PLT:16 Called to and read back by: KIKA ZAPIEN RN at: 06/03/2025 08:32:41 by:HT. Testing performed by: [facility], [address] [place], [place] [id number] MPV 9.8 6.8 - 10.4 fL CERNER BJ Comment:Testing performed by : [facility], [address] [place], [place] [id number] RBC 3.68(L) 4.30 - 5.80 M/cumm CERNER BJ Comment:Testing performed by : [facility], [address] [place], [place] [phone] MCV 86.0 81.3 - 96.4 fL CERNER BJ Comment:Testing performed by : [facility], [address] [place], [place] [phone] MCH 30.4 27.1 - 33.3 pg CERNER BJ Comment:Testing performed by : [facility], [address] [place] [address] MCHC 35.4 32.3 - 35.7 g/dL CERNER BJ Comment:Testing performed by : [facility], [address] [place] [address] RDW CV 16.0(H) 11.1 - 14.9 % CERNER BJ Comment:Testing performed by : [facility], [address] [place], [place] [phone] NRBC abs 0.20(H) 0.00 - 0.01 K/cumm CERNER BJ Comment:Testing performed by : [facility], [address] [place], [place] [phone] Blood 06/03/2025 7:06 AM CDT 06/03/2025 7:12 AM CDT Tania Lott MD PhD LAB BLOOD ORDERABLES Fin al Result [facility] Department [place] [address] * (ABNORMAL) Manual Differential (06/03/2025 7:06 AM CDT) Cells Counted 200 Comment:Testing performed by : [facility], [address] [place], [place] [id number] Neutrophil abs 3.17 1.50 - 6.50 K/cumm CERNER BJ Comment:Testing performed by : [facility], [address] [place] [phone] Lymphocyte abs 0.97 0.80 - 3.30 K/cumm CERAZRA BJ Comment:Testing performed by : [facility], [address] [place] [phone] Monocyte abs 0.04(L) 0.20 - 0.80 K/cumm CERAZRA BJ Comment:Testing performed by : [facility], [address] [place] [phone] Eosinophil abs 0.04 0.00 - 0.50 K/cumm CERAZRA BJ Comment:Testing performed by : [facility], [address] [place] [phone] Basophil abs 0.00 0.00 - 0.10 K/cumm CERNER BJ Comment:Testing performed by : [facility], [address] [place], [place] [id number] Neutrophil pct 75.0 % CERNER BJ Comment: Interpretive Data Percent cell count reference ranges are not reported, since discordance with absolute values may lead to misinterpretation of CBC data. Current Interpretive Data was last revised on 2018. Testing performed by: [facility], [address] [place], [place] [id number] Lymphocyte pct 23.0 % CERNER BJH Comment: Interpretive Data Percent cell count reference ranges are not reported, since discordance with absolute values may lead to misinterpretation of CBC data. Current Interpretive Data was last revised on 2018. Testing performed by: [facility], [address] [place] [phone] Monocyte pct 1.0 % CERNER BJ Comment: Interpretive Data Percent cell count reference ranges are not reported, since discordance with absolute values may lead to misinterpretation of CBC data. Current Interpretive Data was last revised on 2018. Testing performed by: [facility], [address] [place], [place] [id number] Eosinophil pct 1.0 % CERNER BJ Comment: Interpretive Data Percent cell count reference ranges are not reported, since discordance with absolute values may lead to misinterpretation of CBC data. Current Interpretive Data was last revised on 2018. Testing performed by: [facility], [address] [place] [phone] Basophil pct 0.0 % CERNER BJ Comment: Interpretive Data Percent cell count reference ranges are not reported, since discordance with absolute values may lead to misinterpretation of CBC data. Current Interpretive Data was last revised on 2018. Testing performed by: [facility], [address] [place], [place] [id number] Variant lymph pct 1.0(H) 0.0 - 0.0 % CERNER BJ Comment:Testing performed by : [facility], [address] [place] [phone] Hypersegmentation Present(A ) CERNER BJ Comment:Testing performed by : [facility], [address] [place], [place] [phone] RBC morphology NRBCs present(A ) CERNER BJ Comment:Testing performed by : [facility], [address] [place], [place] [phone] Polychromasia 1+(A) CERNER BJ Comment:Testing performed by : [facility], [address] [place] [phone] Hypochromasia 1+(A) CERAZRA BJ Comment:Testing performed by : [facility], [address] [place] [phone] Anisocytosis 2+(A) CERAZRA BJ Comment:Testing performed by : [facility], [address] [place] [phone] Poikilocytosis 1+(A) CERAZRA BJ Comment:Testing performed by : [facility], [address] [place] [phone] Microcytes 2+(A) CERAZRA BJ Comment:Testing performed by : [facility], [address] [place], [place] [phone] Macrocytes 1+(A) [facility]A [facility] Comment:Testing performed by : [facility], [address] [place] [phone] Elliptocytes 1+(A) [facility] Comment:Testing performed by : [facility], [address] [place] [phone] Target cells 1+(A) [facility] Comment:Testing performed by : [facility], [address] [place] [phone] Teardrop cells 1+(A) [facility]ER[facility]RA [facility] Comment:Testing performed by : [facility], [address] [place] [address] [id number] Platelet estimate Decreased (A) [facility] Comment:Testing performed by : [facility], [address] [place], [place] [id number] Giant platelets Present(A ) [facility] Comment:Testing performed by : [facility], [address] [place] [id number] Blood 06/03/2025 7:06 AM CDT 06/03/2025 7:12 AM CDT us Tania Lott MD PhD LAB BLOOD ORDERABLES Fin al Result [facility] Department [place] [address] * Type and screen (06/03/2025 7:06 AM CDT) Benjy, indirect Negative ABO Rh B Positive [facility] Blood 06/03/2025 7:06 AM CDT 06/03/2025 7:24 AM CDT Narrative ANGELA DUNAWAY - 06/03/2025 8:20 AM CDT Has the patient had Daratumumab or Isatuximab in the past 6 months?->Unknown Tania Lott MD PhD LAB BLOOD BANK TEST ORDE PRIMO Final Result [facility] Department [place] [address] * AR REMOVAL SUTURES/MATHEW NOT REQUIRING ANESTHESIA (06/01/2025 3:39 PM CDT) Narrative Dimple Bailey MD PhD - 06/01/2025 3:39 PM CDT Dimple Bailey MD PhD 06/01/2025 8:28 PM Suture Removal Date/Time: 06/01/2025 3:39 PM Performed by: Junior Lamar MD Authorized by: Junior Lamar MD To generate suggested charges, all areas highlighted in orange must be documented. If there are no orange regions, a default charge will not be suggested. The procedure documentation in the form should sufficiently describe the procedure performed. Lab orders must be placed in the Orders section of the visit taskbar.: RN Notified of Procedure: yes Informed consent: Risks, benefits, alternatives discussed Consent form signed, dated, timed; matches correct patient, intended procedure and site: Yes Imaging: N/a Lab/Diag test results: N/a Supplies, devices and special equipment are available: yes Site/side marked: n/a Immediately prior to the procedure a time out was called: a verbal verification by the procedure participants confirmed correct patient identity, correct site/side marked and visible (if applicable); agreement on procedure to be done; and correct patient positioning Anesthesia: Local anesthesia used?: No Procedure details: Sutures removed: Yes Sutures removed: 2 Mathew removed: No Suture and/or mathew initally placed by: Not myself or within my group Post-removal: Dressing applied patient tolerated the procedure well with no immediate complications us Junior Barnhart MD IN CLINIC/BEDSIDE ORDERABLES Final Result * eGFR (06/01/2025 11:41 AM CDT) eGFR 71 >=60 mL/min/1. 73 m2 Comment: Interpretive Data [...] of Race in Diagnosing Kidney Disease, JASN 2020). The CKD-EPI equation should not be used for patients with unstable renal function and has not been validated in children and those over 70. Current interpretive data was last reviewed 2021. Blood 06/01/2025 11:4 1 AM CDT 06/01/2025 12:11 PM CDT us Dimple Bailey MD PhD LAB BLOOD ORDERABLES Fi nal Result [facility] Department of Laboratories [place], [place] [id number] * Magnesium (06/01/2025 11:41 AM CDT) Magnesium 2.3 1.4 - 2.5 mg/dL Blood 06/01/2025 11:4 1 AM CDT 06/01/2025 12:11 PM CDT us Dimple Bailey MD PhD LAB BLOOD ORDERABLES Fi nal Result [facility] Department [place] [address] * (ABNORMAL) Comprehensive metabolic panel (06/01/2025 11:41 AM CDT) Sodium 137 135 - 145 mmol/L Potassium, pl 3.7 3.3 - 4.9 mmol/L [facility] Chloride 93(L) 97 - 110 mmol/L [facility] CO2 35(H) 22 - 32 mmol/L [facility] Anion gap 9 2 - 15 mmol/L [facility] BUN 24 6 - 25 mg/dL [facility] Creatinine 1.19 0.80 - 1.30 mg/dL [facility] Glucose 111 70 - 199 mg/dL [facility] Comment: Interpretive Data Fasting glucose >/= 126 [...] classification and Diagnosis of Diabetes Diabetes Care 202; 46: S19-S40. Current interpretive data was last revised 2022. Calcium 9.3 8.5 - 10.3 mg/dL [facility] Bilirubin, total 0.8 0.1 - 1.2 mg/dL [facility] Protein, pl 6.5 6.5 - 8.5 g/dL [facility] Albumin 3.8 3.5 - 5.0 g/dL [facility] Alk phos 62 40 - 130 Units/L [facility] ALT 48 7 - 55 Units/L [facility] AST 43 10 - 50 Units/L [facility] Blood 06/01/2025 11:4 1 AM CDT 06/01/2025 12:11 PM CDT Dimple Bailey MD PhD LAB BLOOD ORDERABLES Fi nal Result Performing Organization Address City/[facility] Co de Phone Number [facility] [place] [address] * (ABNORMAL) Immature platelet fraction (06/01/2025 2:05 AM CDT) Pathologist [facility] IPF 30.7(H) 1.6 - 10.1 % Blood 06/01/2025 2:05 AM CDT 06/01/2025 2:36 AM CDT us Sandy Meraz [employer] LAB BLOOD ORDERABLES Final R esult Performing Organization Address [facility] Co de Phone Number [facility] [place] [address] * Potassium, whole blood (06/01/2025 2:05 AM CDT) [facility] Potassium, bld 3.6 3.3 - 4.9 mmol/L Blood 06/01/2025 2:05 AM CDT 06/01/2025 2:17 AM CDT Dimple Bailey MD PhD LAB BLOOD ORDERABLES Fi nal Result Performing Organization Address [facility] Co de Phone Number [facility] Department [place] [address] * eGFR (06/01/2025 2:05 AM CDT) [facility] eGFR 63 >=60 mL/min/1. 73 m2 Comment: Interpretive Data [...] interpretive data was last reviewed 2021. Blood 06/01/2025 2:05 AM CDT 06/01/2025 2:32 AM CDT us Tania Lott MD PhD LAB BLOOD ORDERABLES Fin al Result [facility] Department [place] [address] * (ABNORMAL) Differential, auto (06/01/2025 2:05 AM CDT) Neutrophil abs 2.19 1.50 - 6.50 K/cumm Imm gran abs 0.08 0.00 - 0.10 K/cumm [facility] Lymphocyte abs 0.62(L) 0.80 - 3.30 K/cumm [facility] Monocyte abs 0.06(L) 0.20 - 0.80 K/cumm [facility] Eosinophil abs 0.05 0.00 - 0.50 K/cumm [facility] Basophil abs 0.00 0.00 - 0.10 K/cumm [facility] Neutrophil pct 72.9 % [facility] Comment: Interpretive Data Percent cell count reference ranges are not reported, since discordance with absolute values may lead to misinterpretation of CBC data. Current Interpretive Data was last revised on 2018. Imm gran pct 2.7 % [facility] Comment: Interpretive Data Percent cell count reference ranges are not reported, since discordance with absolute values may lead to misinterpretation of CBC data. Current Interpretive Data was last revised on 2018. Lymphocyte pct 20.7 % [facility] Comment: Interpretive Data Percent cell count reference ranges are not reported, since discordance with absolute values may lead to misinterpretation of CBC data. Current Interpretive Data was last revised on 2018. Monocyte pct 2.0 % [facility] Comment: Interpretive Data Percent cell count reference ranges are not reported, since discordance with absolute values may lead to misinterpretation of CBC data. Current Interpretive Data was last revised on 2018. Eosinophil pct 1.7 % [facility] Comment: Interpretive Data Percent cell count reference ranges are not reported, since discordance with absolute values may lead to misinterpretation of CBC data. Current Interpretive Data was last revised on 2018. Basophil pct 0.0 % [facility] Comment: Interpretive Data Percent cell count reference ranges are not reported, since discordance with absolute values may lead to misinterpretation of CBC data. Current Interpretive Data was last revised on 2018. Blood 06/01/2025 2:05 AM CDT 06/01/2025 2:32 AM CDT us Sandy Meraz [employer] LAB BLOOD ORDERABLES Final R esult Performing Organization Address [facility] de Phone Number [facility] Department [place] [address] * (ABNORMAL) Cystatin C (06/01/2025 2:05 AM CDT) Cystatin C 1.30(H) 0.60 - 1.20 mg/L Comment: Interpretive Data Cystatin C concentrations vary widely in the first month of life, particularly in pre-term infants. Concentrations gradually diminish to adult levels by 1 year of life. Concentrations tend to rise with diminishing renal function in individuals greater than 60 years of age. Current Interpretive Data was last revised on 2020. Testing performed by: [facility], [facility], [place]., [address] Blood 06/01/2025 2:05 AM CDT 06/01/2025 2:46 AM CDT us Dimple Bailey MD PhD LAB BLOOD ORDERABLES Fi nal Result Performing Organization Address [facility]/ZIP Co de Phone Number [facility] Department [place] [address] * (ABNORMAL) CBC with auto differential (06/01/2025 2:05 AM CDT) [facility] WBC 3.00(L) 3.80 - 9.90 K/cumm Hgb 10.0(L) 13.0 - 17.5 g/dL [facility] Hct 29.1(L) 38.9 - 50.3 % [facility] Plt 28(C) 150 - 400 K/cumm [facility] Comment:Platelet count confi rmed by additional testing. Critical platelet count threshold determined by patient location: Outpatient:<50 K/cumm , Inpatient adults:<20 K/cumm , Inpatient pediatric:<25 K/cumm, BMT service:<10 K/cumm MPV Not Measured 9.1 - 12.3 fL [facility] RBC 3.31(L) 4.30 - 5.80 M/cumm [facility] MCV 87.9 81.3 - 96.4 fL [facility] MCH 30.2 27.1 - 33.3 pg [facility] MCHC 34.4 32.3 - 35.7 g/dL [facility] RDW CV 17.1(H) 11.1 - 14.9 % [facility] RDW SD 50.4(H) 35.7 - 48.1 fL [facility] NRBC abs 0.53(H) 0.00 - 0.01 K/cumm [facility] Blood 06/01/2025 2:05 AM CDT 06/01/2025 2:32 AM CDT us Sandy Meraz NP LAB BLOOD ORDERABLES Final R esult [facility] Department [place] [address] * Uric acid (06/01/2025 2:05 AM CDT) [facility] Uric acid 6.4 3.0 - 8.0 mg/dL Blood 06/01/2025 2:05 AM CDT 06/01/2025 2:32 AM CDT Tania Lott MD PhD LAB BLOOD ORDERABLES Fin al Result Performing Organization Address [facility] de Phone Number [facility] [place] [address] * Phosphorus (06/01/2025 2:05 AM CDT) [facility] Phosphorus, pl 3.9 2.3 - 4.5 mg/dL Blood 06/01/2025 2:05 AM CDT 06/01/2025 2:32 AM CDT Tania Lott MD PhD LAB BLOOD ORDERABLES Fin al Result Performing Organization Address [facility] de Phone Number [facility] [place] [address] * (ABNORMAL) Lactate dehydrogenase (LD) (06/01/2025 2:05 AM CDT) [facility] Lactate dehydrogenase (LDH) 387(H) 100 - 250 Units/L Blood 06/01/2025 2:05 AM CDT 06/01/2025 2:32 AM CDT Tania Lott MD PhD LAB BLOOD ORDERABLES Fin al Result Performing Organization Address [facility] [place] [address] * (ABNORMAL) Basic metabolic panel (06/01/2025 2:05 AM CDT) [facility] Sodium 134(L) 135 - 145 mmol/L Potassium, pl 3.8 3.3 - 4.9 mmol/L [facility] Chloride 88(L) 97 - 110 mmol/L [facility] CO2 36(H) 22 - 32 mmol/L [facility] Anion gap 10 2 - 15 mmol/L [facility] BUN 23 6 - 25 mg/dL [facility] Creatinine 1.31(H) 0.80 - 1.30 mg/dL [facility] Glucose 133 70 - 199 mg/dL [facility] Comment: Interpretive Data Fasting glucose >/= 126 [...] interpretive data was last revised 2022. Calcium 9.7 8.5 - 10.3 mg/dL [facility] Blood 06/01/2025 2:05 AM CDT 06/01/2025 2:32 AM CDT us Tania Lott MD PhD LAB BLOOD ORDERABLES Fin al Result [facility] Department [place] [address] * Potassium, whole blood (05/31/2025 7:23 PM CDT) Pathologist [facility] Potassium, bld 3.4 3.3 - 4.9 mmol/L Blood 05/31/2025 7:23 PM CDT 05/31/2025 7:44 PM CDT us Dimple Bailey MD PhD LAB BLOOD ORDERABLES Fi nal Result [facility] Department [place] [address] * eGFR (05/31/2025 7:19 PM CDT) eGFR 66 >=60 mL/min/1. 73 m2 Comment: Interpretive Data [...] of Race in Diagnosing Kidney Disease, JASN 2020). The CKD-EPI equation should not be used for patients with unstable renal function and has not been validated in children and those over 70. Current interpretive data was last reviewed 2021. Blood 05/31/2025 7:19 PM CDT 05/31/2025 7:45 PM CDT us Manolo Lobo MD LAB BLOOD ORDERABLES Final Result [facility] [place] [address] * Uric acid (05/31/2025 7:19 PM CDT) Uric acid 6.1 3.0 - 8.0 mg/dL Blood 05/31/2025 7:19 PM CDT 05/31/2025 7:42 PM CDT us Manolo Lobo MD LAB BLOOD ORDERABLES Final Result [facility] [place] [address] * Phosphorus (05/31/2025 7:19 PM CDT) Phosphorus, pl 4.0 2.3 - 4.5 mg/dL Blood 05/31/2025 7:19 PM CDT 05/31/2025 7:42 PM CDT [facility] LAB BLOOD ORDERABLES Final Result Performing Organization Address City/[facility]/ZIP Co de Phone Number [facility] [place] [address] * (ABNORMAL) Basic metabolic panel (05/31/2025 7:19 PM CDT) [facility] Sodium 138 135 - 145 mmol/L Potassium, pl 3.4 3.3 - 4.9 mmol/L [facility] Chloride 89(L) 97 - 110 mmol/L [facility] CO2 40(H) 22 - 32 mmol/L [facility] Anion gap 9 2 - 15 mmol/L [facility] BUN 19 6 - 25 mg/dL [facility] Creatinine 1.26 0.80 - 1.30 mg/dL [facility] Glucose 108 70 - 199 mg/dL [facility] Comment: Interpretive Data Fasting glucose >/= 126 [...] interpretive data was last revised 2022. Calcium 9.7 8.5 - 10.3 mg/dL [facility] Blood 05/31/2025 7:19 PM CDT 05/31/2025 7:42 PM CDT Manolo Lobo MD LAB BLOOD ORDERABLES Final Result Performing Organization Address [facility]/ZIP Co de Phone Number [facility] [place] [address] * (ABNORMAL) Potassium, whole blood (05/31/2025 1:50 PM CDT) Potassium, bld 2.9(L) 3.3 - 4.9 mmol/L Blood 05/31/2025 1:50 PM CDT 05/31/2025 1:57 PM CDT Manolo Lobo MD LAB BLOOD ORDERABLES Final Result Performing Organization Address [facility] Co de Phone Number [facility] Department [place] [address] * (ABNORMAL) Potassium, whole blood (05/31/2025 9:38 AM CDT) Potassium, bld 3.2(L) 3.3 - 4.9 mmol/L Blood 05/31/2025 9:38 AM CDT 05/31/2025 9:47 AM CDT Manolo Lobo MD LAB BLOOD ORDERABLES Final Result Performing Organization Address [facility] de Phone Number [facility] Department [place] [address] * ECG 12 lead (05/31/2025 5:38 AM CDT) Ventricular Rate EKG/Min 64 BPM [facility] Atrial Rate 64 BPM [facility] AR-Interval (MSEC) 154 ms [facility] QRS-Interval (MSEC) 102 ms [facility] QT-Interval (MSEC) 426 ms [facility] QTc 439 ms [facility] P Mcdonough -22 degrees [facility] R Mcdonough 34 degrees [facility] T Mcdonough 13 degrees [facility] Diagnosis Normal sinus rhythm Normal ECG When compared with ECG of 12-MAY-2025 01:44, Vent. rate has decreased BY 32 BPM Nonspecific T wave abnormality no longer evident in Lateral leads Confirmed by HEATH CROFT M.D ([id number]) on 05/31/2025 12:18:43 PM [facility] 05/31/2025 5:38 AM CDT 05/31/2025 12:18 PM CDT Annebarrington Chandler DO ECG ORDERABLES Final Result Performing Organization Address [facility] Co de Phone Number [facility] * (ABNORMAL) Potassium, whole blood (05/31/2025 4:39 AM CDT) Potassium, bld 2.4(C) 3.3 - 4.9 mmol/L Blood 05/31/2025 4:39 AM CDT 05/31/2025 4:56 AM CDT Manolo Lobo MD LAB BLOOD ORDERABLES Final Result Performing Organization Address [facility] Co de Phone Number [facility] Department [place] [address] * Critical Result Callback Chemistry (05/31/2025 4:39 AM CDT) Date Notified 20250531 Time Notified 524 [facility] TestName Potassium WB [facility]A DUNAWAY Called/Read Back Bruna [facility] Credentials RN [facility] Called By igor [facility] Blood 05/31/2025 4:39 AM CDT 05/31/2025 4:56 AM CDT Manolo Lobo MD LAB BLOOD ORDERABLES Final Result Performing Organization Address [facility] Co de Phone Number [facility] Department [place] [address] * (ABNORMAL) Immature platelet fraction (05/31/2025 3:26 AM CDT) IPF 30.8(H) 1.6 - 10.1 % Blood 05/31/2025 3:26 AM CDT 05/31/2025 3:45 AM CDT Sandy Poornima Kt [employer] LAB BLOOD ORDERABLES Final R esult Performing Organization Address City/[facility]/ZIP Co de Phone Number [facility] Department [place] [address] * eGFR (05/31/2025 3:26 AM CDT) eGFR 70 >=60 mL/min/1. 73 m2 Comment: Interpretive Data [...] of Race in Diagnosing Kidney Disease, JASN 2020). The CKD-EPI equation should not be used for patients with unstable renal function and has not been validated in children and those over 70. Current interpretive data was last reviewed 2021. Blood 05/31/2025 3:26 AM CDT 05/31/2025 3:41 AM CDT us Erika Chandler DO LAB BLOOD ORDERABLES Final Resul t Performing Organization Address City/[facility]/ZIP Co de Phone Number [facility] Department [place] [address] * (ABNORMAL) Differential, auto (05/31/2025 3:26 AM CDT) Pathologist [facility] Neutrophil abs 2.92 1.50 - 6.50 K/cumm Imm gran abs 0.08 0.00 - 0.10 K/cumm [facility] Lymphocyte abs 0.72(L) 0.80 - 3.30 K/cumm [facility] Monocyte abs 0.03(L) 0.20 - 0.80 K/cumm [facility] Eosinophil abs 0.18 0.00 - 0.50 K/cumm [facility] Basophil abs 0.00 0.00 - 0.10 K/cumm [facility] Neutrophil pct 74.3 % [facility] Comment: Interpretive Data Percent cell count reference ranges are not reported, since discordance with absolute values may lead to misinterpretation of CBC data. Current Interpretive Data was last revised on 2018. Imm gran pct 2.0 % [facility] Comment: Interpretive Data Percent cell count reference ranges are not reported, since discordance with absolute values may lead to misinterpretation of CBC data. Current Interpretive Data was last revised on 2018. Lymphocyte pct 18.3 % [facility] Comment: Interpretive Data Percent cell count reference ranges are not reported, since discordance with absolute values may lead to misinterpretation of CBC data. Current Interpretive Data was last revised on 2018. Monocyte pct 0.8 % [facility] Comment: Interpretive Data Percent cell count reference ranges are not reported, since discordance with absolute values may lead to misinterpretation of CBC data. Current Interpretive Data was last revised on 2018. Eosinophil pct 4.6 % [facility] Comment: Interpretive Data Percent cell count reference ranges are not reported, since discordance with absolute values may lead to misinterpretation of CBC data. Current Interpretive Data was last revised on 2018. Basophil pct 0.0 % [facility] Comment: Interpretive Data Percent cell count reference ranges are not reported, since discordance with absolute values may lead to misinterpretation of CBC data. Current Interpretive Data was last revised on 2018. Blood 05/31/2025 3:26 AM CDT 05/31/2025 3:41 AM CDT us Sandy Meraz NP LAB BLOOD ORDERABLES Final R esult [facility] Department [place] [address] * Critical Result Callback Chemistry (05/31/2025 3:26 AM CDT) Date Notified 20250531 Time Notified 424 [facility] TestName Potassium Plas [facility] Called/Read Back Eriberto Hampton [facility] Credentials RN [facility] Called By RG [facility] Blood 05/31/2025 3:26 AM CDT 05/31/2025 3:41 AM CDT Erika Chandler DO LAB BLOOD ORDERABLES Final Resul t [facility] Department [place] [address] * (ABNORMAL) Cystatin C (05/31/2025 3:26 AM CDT) Cystatin C 1.34(H) 0.60 - 1.20 mg/L Comment: Interpretive Data Cystatin C concentrations vary widely in the first month of life, particularly in pre-term infants. Concentrations gradually diminish to adult levels by 1 year of life. Concentrations tend to rise with diminishing renal function in individuals greater than 60 years of age. Current Interpretive Data was last revised on 2020. Testing performed by: [facility], [facility], [place]., [address] Blood 05/31/2025 3:26 AM CDT 05/31/2025 10:10 AM CDT Dimple Bailey MD PhD LAB BLOOD ORDERABLES Fi nal Result [facility] Department [place] [address] * (ABNORMAL) CBC with auto differential (05/31/2025 3:26 AM CDT) WBC 4.11 3.80 - 9.90 K/cumm Hgb 10.0(L) 13.0 - 17.5 g/dL [facility] Hct 29.0(L) 38.9 - 50.3 % [facility] Plt 41(C) 150 - 400 K/cumm [facility] Comment:Platelet count confi rmed by additional testing. Critical platelet count threshold determined by patient location: Outpatient:<50 K/cumm , Inpatient adults:<20 K/cumm , Inpatient pediatric:<25 K/cumm, BMT service:<10 K/cumm MPV Not Measured 9.1 - 12.3 fL [facility] RBC 3.30(L) 4.30 - 5.80 M/cumm [facility] MCV 87.9 81.3 - 96.4 fL [facility] MCH 30.3 27.1 - 33.3 pg [facility] MCHC 34.5 32.3 - 35.7 g/dL [facility] RDW CV 17.3(H) 11.1 - 14.9 % [facility] RDW SD 51.5(H) 35.7 - 48.1 fL [facility] NRBC abs 0.82(H) 0.00 - 0.01 K/cumm [facility] Blood 05/31/2025 3:26 AM CDT 05/31/2025 3:41 AM CDT us Sandy Meraz NP LAB BLOOD ORDERABLES Edited Result - Final [facility] Department [place] [address] * aPTT (05/31/2025 3:26 AM CDT) aPTT 27 26 - 38 sec Comment: Interpretive Data Heparin therapeutic range: 66.0 - 100.0 seconds. Range based on correlation with therapeutic heparin activity range of 0.3 - 0.7 Units/mL. Current interpretive data was last revised on 2023. Blood 05/31/2025 3:26 AM CDT 05/31/2025 3:56 AM CDT us Manolo Lobo MD LAB BLOOD ORDERABLES Final Result Performing Organization Address [facility] [place] [address] * Protime-INR (05/31/2025 3:26 AM CDT) PT 11.1 10.2 - 13.5 sec INR 0.98 0.90 - 1.20 [facility] Comment: Interpretive data Oral anticoagulant therapeutic ranges: Venous thromboembolism prophylaxis or treatment: 2.0-3.0 CARDIOLOGY Standard range: 2.0-3.0 High-intensity range: 2.5-3.5 Refer to indication-specific guidelines for appropriate target ranges for prosthetic heart valve replacement. Current interpretive data was last revised on 2019. Blood 05/31/2025 3:26 AM CDT 05/31/2025 3:56 AM CDT [facility] LAB BLOOD ORDERABLES Final Result Performing Organization Address [facility] [place] [address] * Fibrinogen (05/31/2025 3:26 AM CDT) Fibrinogen 369 170 - 400 mg/dL Blood 05/31/2025 3:2 6 AM CDT 05/31/2025 3:56 AM CDT Manolo Lobo MD LAB BLOOD ORDERABLES Final Result Performing Organization Address [facility] [place] [address] * Type and screen (05/31/2025 3:26 AM CDT) ABO Rh B Positive Benjy, indirect Negative [facility] Blood 05/31/2025 3:26 AM CDT 05/31/2025 3:47 AM CDT Narrative [facility] - 05/31/2025 4:49 AM CDT Has the patient had Daratumumab or Isatuximab in the past 6 months?->Unknown Erika Chandler DO LAB BLOOD BANK TEST ORDERABLES F inal Result Performing Organization Address [facility] de Phone Number [facility] [place] [address] * Uric acid (05/31/2025 3:26 AM CDT) Uric acid 5.0 3.0 - 8.0 mg/dL Blood 05/31/2025 3:26 AM CDT 05/31/2025 3:41 AM CDT Tania Lott MD PhD LAB BLOOD ORDERABLES Fin al Result Performing Organization Address [facility] de Phone Number [facility] [place] [address] * Phosphorus (05/31/2025 3:26 AM CDT) Phosphorus, pl 4.5 2.3 - 4.5 mg/dL Blood 05/31/2025 3:26 AM CDT 05/31/2025 3:41 AM CDT Tania Lott MD PhD LAB BLOOD ORDERABLES Fin al Result Performing Organization Address [facility] [place] [address] * Magnesium (05/31/2025 3:26 AM CDT) Magnesium 2.0 1.4 - 2.5 mg/dL Blood 05/31/2025 3:2 6 AM CDT 05/31/2025 3:41 AM CDT us Manolo Lobo MD LAB BLOOD ORDERABLES Final Result Performing Organization Address City/[facility]/ZIP Co de Phone Number [facility] Department [place] [address] * (ABNORMAL) Lactate dehydrogenase (LD) (05/31/2025 3:26 AM CDT) Lactate dehydrogenase (LDH) 428(H) 100 - 250 Units/L Blood 05/31/2025 3:26 AM CDT 05/31/2025 3:41 AM CDT Tania Lott MD PhD LAB BLOOD ORDERABLES Fin al Result Performing Organization Address [facility] Co de Phone Number [facility] Department [place] [address] * (ABNORMAL) Comprehensive metabolic panel (05/31/2025 3:26 AM CDT) Pathologist [facility] Sodium 136 135 - 145 mmol/L Potassium, pl 2.4(C) 3.3 - 4.9 mmol/L [facility] Comment:Repeated and Verifie d Chloride 87(L) 97 - 110 mmol/L [facility] Comment:Repeated and Verifie d CO2 38(H) 22 - 32 mmol/L [facility] Anion gap 11 2 - 15 mmol/L [facility] BUN 19 6 - 25 mg/dL [facility] Creatinine 1.20 0.80 - 1.30 mg/dL [facility] Glucose 112 70 - 199 mg/dL [facility] Comment: Interpretive Data Fasting glucose >/= 126 [...] classification and Diagnosis of Diabetes Diabetes Care 202; 46: S19-S40. Current interpretive data was last revised 2022. Calcium 9.6 8.5 - 10.3 mg/dL [facility] Bilirubin, total 1.0 0.1 - 1.2 mg/dL [facility] Protein, pl 7.2 6.5 - 8.5 g/dL [facility] Albumin 4.1 3.5 - 5.0 g/dL [facility] Alk phos 74 40 - 130 Units/L [facility] ALT 54 7 - 55 Units/L [facility] AST 48 10 - 50 Units/L [facility] Blood 05/31/2025 3:26 AM CDT 05/31/2025 3:41 AM CDT Narrative [facility] - 05/31/2025 4:22 AM CDT Saturday and only. Morning draw. Erika Chandler DO LAB BLOOD ORDERABLES Final Resul t [facility] Department [place] [address] * eGFR (05/30/2025 5:06 PM CDT) eGFR 71 >=60 mL/min/1. 73 m2 Comment: Interpretive Data [...] of Race in Diagnosing Kidney Disease, JASN 2020). The CKD-EPI equation should not be used for patients with unstable renal function and has not been validated in children and those over 70. Current interpretive data was last reviewed 2021. Blood 05/30/2025 5:06 PM CDT 05/30/2025 5:28 PM CDT Manolo Lobo MD LAB BLOOD ORDERABLES Final Result Performing Organization Address [facility] Co de Phone Number [facility] [place] [address] * Uric acid (05/30/2025 5:06 PM CDT) Pathologist [facility] Uric acid 3.9 3.0 - 8.0 mg/dL Blood 05/30/2025 5:06 PM CDT 05/30/2025 5:28 PM CDT Manolo Lobo MD LAB BLOOD ORDERABLES Final Result Performing Organization Address [facility] Co de Phone Number [facility] [place] [address] * Phosphorus (05/30/2025 5:06 PM CDT) Pathologist [facility] Phosphorus, pl 3.6 2.3 - 4.5 mg/dL Blood 05/30/2025 5:06 PM CDT 05/30/2025 5:28 PM CDT Manolo Lobo MD LAB BLOOD ORDERABLES Final Result Performing Organization Address [facility] [place] [address] * Basic metabolic panel (05/30/2025 5:06 PM CDT) Sodium 139 135 - 145 mmol/L Potassium, pl 3.8 3.3 - 4.9 mmol/L [facility] Comment:Hemolyzed; Potassium value may be falsely elevated by as much as 0.3-0.5 mmol/L. Suggest redraw and reanalysis. Chloride 99 97 - 110 mmol/L [facility] CO2 32 22 - 32 mmol/L [facility] Anion gap 8 2 - 15 mmol/L [facility] BUN 19 6 - 25 mg/dL [facility] Creatinine 1.19 0.80 - 1.30 mg/dL [facility] Glucose 98 70 - 199 mg/dL [facility] Comment: Interpretive Data Fasting glucose >/= 126 [...] interpretive data was last revised 2022. Calcium 9.1 8.5 - 10.3 mg/dL [facility] Blood 05/30/2025 5:06 PM CDT 05/30/2025 5:28 PM CDT us Manolo Lobo MD LAB BLOOD ORDERABLES Final Result Performing Organization Address City/[facility]/ZIP Co de Phone Number [facility] Department [place] [address] * (ABNORMAL) Immature platelet fraction (05/30/2025 4:28 AM CDT) [facility] IPF 31.5(H) 1.6 - 10.1 % Blood 05/30/2025 4:28 AM CDT 05/30/2025 4:55 AM CDT us Sandy Meraz NP LAB BLOOD ORDERABLES Final R esult [facility] Department [place] [address] * (ABNORMAL) Blood smear review (05/30/2025 4:28 AM CDT) Platelet estimate Decreased( A) Blood 05/30/2025 4:28 AM CDT 05/30/2025 4:55 AM CDT us Sandy Meraz [employer] LAB BLOOD ORDERABLES Final R esult Performing Organization Address [facility] Co de Phone Number [facility] Department [place] [address] * eGFR (05/30/2025 4:28 AM CDT) Pathologist [facility] eGFR 86 >=60 mL/min/1. 73 m2 Comment: Interpretive Data [...] of Race in Diagnosing Kidney Disease, JASN 2020). The CKD-EPI equation should not be used for patients with unstable renal function and has not been validated in children and those over 70. Current interpretive data was last reviewed 2021. Blood 05/30/2025 4:28 AM CDT 05/30/2025 4:48 AM CDT us Tania Lott MD PhD LAB BLOOD ORDERABLES Fin al Result Performing Organization Address [facility]/ZIP Co de Phone Number [facility] Department [place] [address] * (ABNORMAL) Differential, auto (05/30/2025 4:28 AM CDT) Pathologist [facility] Neutrophil abs 1.47(L) 1.50 - 6.50 K/cumm Imm gran abs 0.02 0.00 - 0.10 K/cumm [facility] Lymphocyte abs 0.77(L) 0.80 - 3.30 K/cumm [facility] Monocyte abs 0.05(L) 0.20 - 0.80 K/cumm [facility] Eosinophil abs 0.23 0.00 - 0.50 K/cumm [facility] Basophil abs 0.00 0.00 - 0.10 K/cumm [facility] Neutrophil pct 57.8 % [facility] Comment: Interpretive Data Percent cell count reference ranges are not reported, since discordance with absolute values may lead to misinterpretation of CBC data. Current Interpretive Data was last revised on 2018. Imm gran pct 0.8 % [facility] Comment: Interpretive Data Percent cell count reference ranges are not reported, since discordance with absolute values may lead to misinterpretation of CBC data. Current Interpretive Data was last revised on 2018. Lymphocyte pct 30.3 % [facility] Comment: Interpretive Data Percent cell count reference ranges are not reported, since discordance with absolute values may lead to misinterpretation of CBC data. Current Interpretive Data was last revised on 2018. Monocyte pct 2.0 % [facility] Comment: Interpretive Data Percent cell count reference ranges are not reported, since discordance with absolute values may lead to misinterpretation of CBC data. Current Interpretive Data was last revised on 2018. Eosinophil pct 9.1 % [facility] Comment: Interpretive Data Percent cell count reference ranges are not reported, since discordance with absolute values may lead to misinterpretation of CBC data. Current Interpretive Data was last revised on 2018. Basophil pct 0.0 % [facility] Comment: Interpretive Data Percent cell count reference ranges are not reported, since discordance with absolute values may lead to misinterpretation of CBC data. Current Interpretive Data was last revised on 2018. Blood 05/30/2025 4:28 AM CDT 05/30/2025 4:49 AM CDT Sandy Meraz NP LAB BLOOD ORDERABLES Final R esult [facility] Department [place] [address] * Cystatin C (05/30/2025 4:28 AM CDT) Pathologist [facility] Cystatin C 1.12 0.60 - 1.20 mg/L Comment: Interpretive Data Cystatin C concentrations vary widely in the first month of life, particularly in pre-term infants. Concentrations gradually diminish to adult levels by 1 year of life. Concentrations tend to rise with diminishing renal function in individuals greater than 60 years of age. Current Interpretive Data was last revised on 2020. Testing performed by: [facility], [place]., [address] Blood 05/30/2025 4:28 AM CDT 05/30/2025 5:49 AM CDT Dimple Bailey MD PhD LAB BLOOD ORDERABLES Fi nal Result Performing Organization Address [facility] Co de Phone Number [facility] Department [place] [address] * (ABNORMAL) CBC with auto differential (05/30/2025 4:28 AM CDT) Pathologist [facility] WBC 2.54(L) 3.80 - 9.90 K/cumm Hgb 8.6(L) 13.0 - 17.5 g/dL [facility] Hct 25.4(L) 38.9 - 50.3 % [facility] Plt 44(C) 150 - 400 K/cumm [facility] Comment:Platelet count confi rmed by additional testing. Critical platelet count threshold determined by patient location: Outpatient:<50 K/cumm , Inpatient adults:<20 K/cumm , Inpatient pediatric:<25 K/cumm, BMT service:<10 K/cumm MPV Not Measured 9.1 - 12.3 fL [facility] RBC 2.83(L) 4.30 - 5.80 M/cumm [facility] MCV 89.8 81.3 - 96.4 fL [facility] MCH 30.4 27.1 - 33.3 pg [facility] MCHC 33.9 32.3 - 35.7 g/dL [facility] RDW CV 17.4(H) 11.1 - 14.9 % [facility] RDW SD 53.6(H) 35.7 - 48.1 fL [facility] NRBC abs 0.77(H) 0.00 - 0.01 K/cumm [facility] Blood 05/30/2025 4:28 AM CDT 05/30/2025 4:49 AM CDT Sandy Meraz [employer] LAB BLOOD ORDERABLES Final R esult Performing Organization Address City/[facility] Co de Phone Number [facility] [place] [address] * Uric acid (05/30/2025 4:28 AM CDT) Uric acid 4.4 3.0 - 8.0 mg/dL Blood 05/30/2025 4:28 AM CDT 05/30/2025 4:42 AM CDT Tania Lott MD PhD LAB BLOOD ORDERABLES Fin al Result Performing Organization Address City/[facility] Co de Phone Number [facility] [place] [address] * Phosphorus (05/30/2025 4:28 AM CDT) Phosphorus, pl 3.4 2.3 - 4.5 mg/dL Blood 05/30/2025 4:28 AM CDT 05/30/2025 4:42 AM CDT Tania Lott MD PhD LAB BLOOD ORDERABLES Fin al Result Performing Organization Address City/[facility]/ZIP Co de Phone Number [facility] [place] [address] * (ABNORMAL) Lactate dehydrogenase (LD) (05/30/2025 4:28 AM CDT) Pathologist [facility] Lactate dehydrogenase (LDH) 395(H) 100 - 250 Units/L Blood 05/30/2025 4:28 AM CDT 05/30/2025 4:42 AM CDT Tania Lott MD PhD LAB BLOOD ORDERABLES Fin al Result Performing Organization Address City/[facility]/ZIP Co de Phone Number [facility] Department [place] [address] * (ABNORMAL) Creatine kinase (CK), total (05/30/2025 4:28 AM CDT) Pathologist [facility] CK 35(L) 40 - 300 Units/L Blood 05/30/2025 4:28 AM CDT 05/30/2025 4:42 AM CDT Dimple Bailey MD PhD LAB BLOOD ORDERABLES Fi nal Result Performing Organization Address [facility] de Phone Number [facility] Department [place] [address] * (ABNORMAL) Basic metabolic panel (05/30/2025 4:28 AM CDT) [facility] Sodium 138 135 - 145 mmol/L Potassium, pl 3.4 3.3 - 4.9 mmol/L [facility] Chloride 97 97 - 110 mmol/L [facility] CO2 34(H) 22 - 32 mmol/L [facility] Anion gap 7 2 - 15 mmol/L [facility] BUN 20 6 - 25 mg/dL [facility] Creatinine 1.01 0.80 - 1.30 mg/dL [facility] Glucose 111 70 - 199 mg/dL [facility] Comment: Interpretive Data Fasting glucose >/= 126 [...] interpretive data was last revised 2022. Calcium 8.7 8.5 - 10.3 mg/dL [facility] Blood 05/30/2025 4:28 AM CDT 05/30/2025 4:42 AM CDT us Tania Lott MD PhD LAB BLOOD ORDERABLES Fin al Result [facility] Department [place] [address] * eGFR (05/29/2025 5:01 PM CDT) eGFR 87 >=60 mL/min/1. 73 m2 Comment: Interpretive Data [...] interpretive data was last reviewed 2021. Blood 05/29/2025 5:01 PM CDT 05/29/2025 5:16 PM CDT us Manolo Lobo MD LAB BLOOD ORDERABLES Final Result Performing Organization Address City/[facility]/ZIP Co de Phone Number [facility] [place] [address] * Uric acid (05/29/2025 5:01 PM CDT) [facility] Uric acid 4.5 3.0 - 8.0 mg/dL Blood 05/29/2025 5:01 PM CDT 05/29/2025 5:16 PM CDT Manolo Lobo MD LAB BLOOD ORDERABLES Final Result Performing Organization Address [facility] Co de Phone Number [facility] Department [place] [address] * Phosphorus (05/29/2025 5:01 PM CDT) [facility] Phosphorus, pl 3.3 2.3 - 4.5 mg/dL Blood 05/29/2025 5:01 PM CDT 05/29/2025 5:16 PM CDT Manolo Lobo MD LAB BLOOD ORDERABLES Final Result Performing Organization Address [facility] [place] [address] * (ABNORMAL) Basic metabolic panel (05/29/2025 5:01 PM CDT) [facility] Sodium 139 135 - 145 mmol/L Potassium, pl 3.3 3.3 - 4.9 mmol/L [facility] Chloride 98 97 - 110 mmol/L [facility] CO2 33(H) 22 - 32 mmol/L [facility] Anion gap 8 2 - 15 mmol/L [facility] BUN 19 6 - 25 mg/dL [facility] Creatinine 1.00 0.80 - 1.30 mg/dL [facility] Glucose 150 70 - 199 mg/dL [facility] Comment: Interpretive Data Fasting glucose >/= 126 [...] interpretive data was last revised 2022. Calcium 9.0 8.5 - 10.3 mg/dL [facility] Blood 05/29/2025 5:01 PM CDT 05/29/2025 5:16 PM CDT us Manolo Lobo MD LAB BLOOD ORDERABLES Final Result [facility] Department [place] [address] * eGFR (05/29/2025 4:13 AM CDT) eGFR >90 >=60 mL/min/1. 73 [...] of Race in Diagnosing Kidney Disease, JASN 2020). The CKD-EPI equation should not be used for patients with unstable renal function and has not been validated in children and those over 70. Current interpretive data was last reviewed 2021. Blood 05/29/2025 4:13 AM CDT 05/29/2025 4:24 AM CDT us Tania Lott MD PhD LAB BLOOD ORDERABLES Fin al Result Performing Organization Address [facility] Co de Phone Number [facility] Department [place] [address] * Cystatin C (05/29/2025 4:13 AM CDT) [facility] Cystatin C 1.15 0.60 - 1.20 mg/L Comment: Interpretive Data Cystatin C concentrations vary widely in the first month of life, particularly in pre-term infants. Concentrations gradually diminish to adult levels by 1 year of life. Concentrations tend to rise with diminishing renal function in individuals greater than 60 years of age. Current Interpretive Data was last revised on 2020. Testing performed by: [facility], [facility], [place]., [address] Blood 05/29/2025 4:13 AM CDT 05/29/2025 4:40 AM CDT us Dimple Bailey MD PhD LAB BLOOD ORDERABLES Fi nal Result Performing Organization Address [facility] Co de Phone Number [facility] Department [place] [address] * (ABNORMAL) CBC with auto differential (05/29/2025 4:13 AM CDT) [facility] WBC 2.30(L) 3.80 - 9.90 K/cumm Hgb 8.9(L) 13.0 - 17.5 g/dL [facility] Hct 26.5(L) 38.9 - 50.3 % [facility] Plt 52(L) 150 - 400 K/cumm [facility] MPV Not Measured 9.1 - 12.3 fL [facility] RBC 2.93(L) 4.30 - 5.80 M/cumm [facility] MCV 90.4 81.3 - 96.4 fL [facility] MCH 30.4 27.1 - 33.3 pg [facility] MCHC 33.6 32.3 - 35.7 g/dL [facility] RDW CV 17.5(H) 11.1 - 14.9 % [facility] RDW SD 54.5(H) 35.7 - 48.1 fL [facility] NRBC abs 0.87(H) 0.00 - 0.01 K/cumm [facility] Blood 05/29/2025 4:13 AM CDT 05/29/2025 4:24 AM CDT us Sandy Meraz [employer] LAB BLOOD ORDERABLES Final R esult [facility] Department [place] [address] * (ABNORMAL) Manual Differential (05/29/2025 4:13 AM CDT) Differential Manual Cells Counted 112 [facility] Neutrophil abs 1.66 1.50 - 6.50 K/cumm [facility] Imm gran abs 0.02 0.00 - 0.10 K/cumm [facility] Lymphocyte abs 0.51(L) 0.80 - 3.30 K/cumm [facility] Monocyte abs 0.02(L) 0.20 - 0.80 K/cumm [facility] Eosinophil abs 0.08 0.00 - 0.50 K/cumm [facility] Neutrophil pct 72.3 % [facility] Comment: Interpretive Data Percent cell count reference ranges are not reported, since discordance with absolute values may lead to misinterpretation of CBC data. Current Interpretive Data was last revised on 2018. Lymphocyte pct 22.3 % [facility] Comment: Interpretive Data Percent cell count reference ranges are not reported, since discordance with absolute values may lead to misinterpretation of CBC data. Current Interpretive Data was last revised on 2018. Monocyte pct 0.9 % [facility] Comment: Interpretive Data Percent cell count reference ranges are not reported, since discordance with absolute values may lead to misinterpretation of CBC data. Current Interpretive Data was last revised on 2018. Eosinophil pct 3.6 % [facility] Comment: Interpretive Data Percent cell count reference ranges are not reported, since discordance with absolute values may lead to misinterpretation of CBC data. Current Interpretive Data was last revised on 2018. Metamyelocyte pct 0.9(H) 0.0 - 0.0 % [facility] RBC morphology Present(A) [facility] Anisocytosis Slight(A) [facility] Macrocytes 3-7/HPF(A) [facility] Platelet estimate Decreased( A) [facility] Platelet clumping Present(A) [facility] Blood 05/29/2025 4:13 AM CDT 05/29/2025 4:29 AM CDT Sandy Meraz [employer] LAB BLOOD ORDERABLES Final R esult Performing Organization Address [facility] de Phone Number [facility] Department [place] [address] * Uric acid (05/29/2025 4:13 AM CDT) Uric acid 4.6 3.0 - 8.0 mg/dL Blood 05/29/2025 4:13 AM CDT 05/29/2025 4:24 AM CDT Tania Lott MD PhD LAB BLOOD ORDERABLES Fin al Result Performing Organization Address [facility] de Phone Number [facility] Department [place] [address] * Phosphorus (05/29/2025 4:13 AM CDT) Phosphorus, pl 3.1 2.3 - 4.5 mg/dL Blood 05/29/2025 4:13 AM CDT 05/29/2025 4:24 AM CDT Tania Lott MD PhD LAB BLOOD ORDERABLES Fin al Result Performing Organization Address [facility]/ZIP Co de Phone Number [facility] Department [place] [address] * Magnesium (05/29/2025 4:13 AM CDT) [facility] Magnesium 2.3 1.4 - 2.5 mg/dL Blood 05/29/2025 4:13 AM CDT 05/29/2025 4:24 AM CDT us Sandy Meraz [employer] LAB BLOOD ORDERABLES Final R esult Performing Organization Address [facility] de Phone Number [facility] Department [place] [address] * (ABNORMAL) Lactate dehydrogenase (LD) (05/29/2025 4:13 AM CDT) [facility] Lactate dehydrogenase (LDH) 419(H) 100 - 250 Units/L Blood 05/29/2025 4:13 AM CDT 05/29/2025 4:24 AM CDT us Tania Lott MD PhD LAB BLOOD ORDERABLES Fin al Result Performing Organization Address [facility] de Phone Number [facility] Department [place] [address] * (ABNORMAL) Basic metabolic panel (05/29/2025 4:13 AM CDT) [facility] Sodium 137 135 - 145 mmol/L Potassium, pl 3.6 3.3 - 4.9 mmol/L [facility] Chloride 96(L) 97 - 110 mmol/L [facility] CO2 35(H) 22 - 32 mmol/L [facility] Anion gap 6 2 - 15 mmol/L [facility] BUN 17 6 - 25 mg/dL [facility] Creatinine 0.96 0.80 - 1.30 mg/dL [facility] Glucose 106 70 - 199 mg/dL [facility] Comment: Interpretive Data Fasting glucose >/= 126 [...] interpretive data was last revised 2022. Calcium 8.9 8.5 - 10.3 mg/dL [facility] Blood 05/29/2025 4:13 AM CDT 05/29/2025 4:24 AM CDT us Tania Lott MD PhD LAB BLOOD ORDERABLES Fin al Result [facility] Department [place] [address] * eGFR (05/28/2025 4:55 PM CDT) eGFR >90 >=60 mL/min/1. 73 m2 [...] interpretive data was last reviewed 2021. Blood 05/28/2025 4:55 PM CDT 05/28/2025 5:15 PM CDT Dimple Bailey MD PhD LAB BLOOD ORDERABLES Fi nal Result Performing Organization Address City/[facility] Co de Phone Number [facility] [place] [address] * Uric acid (05/28/2025 4:55 PM CDT) Uric acid 4.3 3.0 - 8.0 mg/dL Blood 05/28/2025 4:55 PM CDT 05/28/2025 5:15 PM CDT Dimple Bailey MD PhD LAB BLOOD ORDERABLES Fi nal Result Performing Organization Address [facility] Co de Phone Number [facility] [place] [address] * Phosphorus (05/28/2025 4:55 PM CDT) Pathologist [facility] Phosphorus, pl 3.5 2.3 - 4.5 mg/dL Blood 05/28/2025 4:55 PM CDT 05/28/2025 5:15 PM CDT Dimple Bailey MD PhD LAB BLOOD ORDERABLES Fi nal Result Performing Organization Address [facility] Co de Phone Number [facility] [place] [address] * Basic metabolic panel (05/28/2025 4:55 PM CDT) Sodium 138 135 - 145 mmol/L Potassium, pl 3.9 3.3 - 4.9 mmol/L [facility] Chloride 98 97 - 110 mmol/L [facility] CO2 32 22 - 32 mmol/L [facility] Anion gap 8 2 - 15 mmol/L [facility] BUN 17 6 - 25 mg/dL [facility] Creatinine 0.94 0.80 - 1.30 mg/dL [facility] Glucose 105 70 - 199 mg/dL [facility] Comment: Interpretive Data Fasting glucose >/= 126 [...] interpretive data was last revised 2022. Calcium 9.0 8.5 - 10.3 mg/dL [facility] Blood 05/28/2025 4:55 PM CDT 05/28/2025 5:15 PM CDT us Dimple Bailey MD PhD LAB BLOOD ORDERABLES Fi nal Result [facility] Department [place] [address] * eGFR (05/28/2025 4:03 AM CDT) eGFR >90 >=60 mL/min/1. 73 [...] of Race in Diagnosing Kidney Disease, JASN 2020). The CKD-EPI equation should not be used for patients with unstable renal function and has not been validated in children and those over 70. Current interpretive data was last reviewed 2021. Blood 05/28/2025 4:03 AM CDT 05/28/2025 4:20 AM CDT Dimple Bailey MD PhD LAB BLOOD ORDERABLES Fi nal Result Performing Organization Address [facility] Co de Phone Number [facility] Department [place] [address] * Cystatin C (05/28/2025 4:03 AM CDT) [facility] Cystatin C 1.14 0.60 - 1.20 mg/L Comment: Interpretive Data Cystatin C concentrations vary widely in the first month of life, particularly in pre-term infants. Concentrations gradually diminish to adult levels by 1 year of life. Concentrations tend to rise with diminishing renal function in individuals greater than 60 years of age. Current Interpretive Data was last revised on 2020. Testing performed by: [place]., [address] Blood 05/28/2025 4:0 3 AM CDT 05/28/2025 5:22 AM CDT Dimple Bailey MD PhD LAB BLOOD ORDERABLES Fi nal Result Performing Organization Address City/[facility] Co de Phone Number [facility] Department [place] [address] * (ABNORMAL) CBC with auto differential (05/28/2025 4:03 AM CDT) Pathologist [facility] WBC 2.01(L) 3.80 - 9.90 K/cumm Hgb 8.5(L) 13.0 - 17.5 g/dL [facility] Hct 26.4(L) 38.9 - 50.3 % [facility] Plt 50(L) 150 - 400 K/cumm [facility] MPV Not Measured 9.1 - 12.3 fL [facility] RBC 2.86(L) 4.30 - 5.80 M/cumm [facility] MCV 92.3 81.3 - 96.4 fL [facility] MCH 29.7 27.1 - 33.3 pg [facility] MCHC 32.2(L) 32.3 - 35.7 g/dL [facility] RDW CV 17.5(H) 11.1 - 14.9 % [facility] RDW SD 55.5(H) 35.7 - 48.1 fL [facility] NRBC abs 1.40(H) 0.00 - 0.01 K/cumm [facility] Blood 05/28/2025 4:03 AM CDT 05/28/2025 4:20 AM CDT Sandy Meraz NP LAB BLOOD ORDERABLES Final R esult [facility] Department [place] [address] * (ABNORMAL) Manual Differential (05/28/2025 4:03 AM CDT) Differential Manual Cells Counted 114 [facility] Neutrophil abs 1.25(L) 1.50 - 6.50 K/cumm [facility] Lymphocyte abs 0.69(L) 0.80 - 3.30 K/cumm [facility] Monocyte abs 0.02(L) 0.20 - 0.80 K/cumm [facility] Eosinophil abs 0.05 0.00 - 0.50 K/cumm [facility] Neutrophil pct 62.3 % [facility] Comment: Interpretive Data Percent cell count reference ranges are not reported, since discordance with absolute values may lead to misinterpretation of CBC data. Current Interpretive Data was last revised on 2018. Lymphocyte pct 34.2 % [facility] Comment: Interpretive Data Percent cell count reference ranges are not reported, since discordance with absolute values may lead to misinterpretation of CBC data. Current Interpretive Data was last revised on 2018. Monocyte pct 0.9 % [facility] Comment: Interpretive Data Percent cell count reference ranges are not reported, since discordance with absolute values may lead to misinterpretation of CBC data. Current Interpretive Data was last revised on 2018. Eosinophil pct 2.6 % [facility] Comment: Interpretive Data Percent cell count reference ranges are not reported, since discordance with absolute values may lead to misinterpretation of CBC data. Current Interpretive Data was last revised on 2018. RBC morphology Present(A) [facility] Anisocytosis Slight(A) [facility] Poikilocytosis Slight(A) [facility] Macrocytes 3-7/HPF(A) [facility] Schistocytes 1-2/HPF(A) [facility] Target cells 3-7/HPF(A) [facility] Platelet estimate Decreased( A) [facility] Platelet clumping Present(A) [facility] Blood 05/28/2025 4:03 AM CDT 05/28/2025 4:23 AM CDT us Sandy Meraz [employer] LAB BLOOD ORDERABLES Final R esult Performing Organization Address City/[facility]/ZIP Co de Phone Number [facility] [place] [address] * Uric acid (05/28/2025 4:03 AM CDT) Uric acid 4.3 3.0 - 8.0 mg/dL Blood 05/28/2025 4:03 AM CDT 05/28/2025 4:20 AM CDT us Dimple Bailey MD PhD LAB BLOOD ORDERABLES Fi nal Result [facility] [place] [address] * Uric acid (05/28/2025 4:03 AM CDT) Uric acid 4.3 3.0 - 8.0 mg/dL Blood 05/28/2025 4:03 AM CDT 05/28/2025 4:20 AM CDT us Tania Lott MD PhD LAB BLOOD ORDERABLES Fin al Result Performing Organization Address City/[facility] Co de Phone Number [facility] [place] [address] * Phosphorus (05/28/2025 4:03 AM CDT) Phosphorus, pl 3.8 2.3 - 4.5 mg/dL Blood 05/28/2025 4:03 AM CDT 05/28/2025 4:20 AM CDT us Tania Lott MD PhD LAB BLOOD ORDERABLES Fin al Result Performing Organization Address [facility] de Phone Number [facility] [place] [address] * Magnesium (05/28/2025 4:03 AM CDT) Magnesium 2.2 1.4 - 2.5 mg/dL Blood 05/28/2025 4:03 AM CDT 05/28/2025 4:20 AM CDT us Dimple Bailey MD PhD LAB BLOOD ORDERABLES Fi nal Result Performing Organization Address City/[facility] Co de Phone Number [facility] [place] [address] * Magnesium (05/28/2025 4:03 AM CDT) Magnesium 2.2 1.4 - 2.5 mg/dL Blood 05/28/2025 4:03 AM CDT 05/28/2025 4:20 AM CDT us Sandy Meraz [employer] LAB BLOOD ORDERABLES Final R esult Performing Organization Address City/[facility] Co de Phone Number [facility] [place] [address] * (ABNORMAL) Lactate dehydrogenase (LD) (05/28/2025 4:03 AM CDT) Pathologist [facility] Lactate dehydrogenase (LDH) 457(H) 100 - 250 Units/L Blood 05/28/2025 4:03 AM CDT 05/28/2025 4:20 AM CDT Tania Lott MD PhD LAB BLOOD ORDERABLES Fin al Result [facility] Department [place] [address] * (ABNORMAL) Comprehensive metabolic panel (05/28/2025 4:03 AM CDT) Pathologist [facility] Sodium 137 135 - 145 mmol/L Potassium, pl 3.8 3.3 - 4.9 mmol/L [facility] Chloride 99 97 - 110 mmol/L [facility] CO2 30 22 - 32 mmol/L [facility] Anion gap 8 2 - 15 mmol/L [facility] BUN 17 6 - 25 mg/dL [facility] Creatinine 0.91 0.80 - 1.30 mg/dL [facility] Glucose 148 70 - 199 mg/dL [facility] Comment: Interpretive Data Fasting glucose >/= 126 [...] classification and Diagnosis of Diabetes Diabetes Care 202; 46: S19-S40. Current interpretive data was last revised 2022. Calcium 9.0 8.5 - 10.3 mg/dL [facility] Bilirubin, total 0.7 0.1 - 1.2 mg/dL [facility] Protein, pl 6.3(L) 6.5 - 8.5 g/dL [facility] Albumin 3.4(L) 3.5 - 5.0 g/dL [facility] Alk phos 58 40 - 130 Units/L [facility] ALT 50 7 - 55 Units/L [facility] AST 45 10 - 50 Units/L [facility] Blood 05/28/2025 4:03 AM CDT 05/28/2025 4:20 AM CDT us Dimple Bailey MD PhD LAB BLOOD ORDERABLES Fi nal Result [facility] Department [place] [address] * eGFR (05/27/2025 5:20 PM CDT) eGFR >90 >=60 mL/min/1. 73 m2 Comment: Collection date/time has been modified to: 17:20:00. Previous collection date/time: 20:00:00. Interpretive Data Reference Interval Normal >/= 90 [...] of Race in Diagnosing Kidney Disease, JASN 2020). The CKD-EPI equation should not be used for patients with unstable renal function and has not been validated in children and those over 70. Current interpretive data was last reviewed 2021. Blood 05/27/2025 5:20 PM CDT 05/27/2025 5:28 PM CDT us Dimple Bailey MD PhD LAB BLOOD ORDERABLES Ed ited Result - Final [facility] [place] [address] * Uric acid (05/27/2025 5:20 PM CDT) Uric acid 3.6 3.0 - 8.0 mg/dL Comment:Collection date/time has been modified to: 17:20:00. Previous collection date/time: 20:00:00. Blood 05/27/2025 5:20 PM CDT 05/27/2025 5:28 PM CDT Dimple Bailey MD PhD LAB BLOOD ORDERABLES Ed ited Result - Final Performing Organization Address [facility] Co de Phone Number [facility] [place] [address] * Phosphorus (05/27/2025 5:20 PM CDT) Phosphorus, pl 3.2 2.3 - 4.5 mg/dL Comment:Collection date/time has been modified to: 17:20:00. Previous collection date/time: 20:00:00. Blood 05/27/2025 5:20 PM CDT 05/27/2025 5:28 PM CDT Dimple Bailey MD PhD LAB BLOOD ORDERABLES Ed ited Result - Final Performing Organization Address [facility] Co de Phone Number [facility] Department [place] [address] * (ABNORMAL) Basic metabolic panel (05/27/2025 5:20 PM CDT) Sodium 140 135 - 145 mmol/L Comment:Collection date/time has been modified to: 17:20:00. Previous collection date/time: 20:00:00. Potassium, pl 3.4 3.3 - 4.9 mmol/L [facility] Comment:Collection date/time has been modified to: 17:20:00. Previous collection date/time: 20:00:00. Chloride 106 97 - 110 mmol/L [facility] Comment:Collection date/time has been modified to: 17:20:00. Previous collection date/time: 20:00:00. CO2 28 22 - 32 mmol/L [facility] Comment:Collection date/time has been modified to: 17:20:00. Previous collection date/time: 20:00:00. Anion gap 6 2 - 15 mmol/L [facility] Comment:Collection date/time has been modified to: 17:20:00. Previous collection date/time: 20:00:00. BUN 13 6 - 25 mg/dL [facility] Comment:Collection date/time has been modified to: 17:20:00. Previous collection date/time: 20:00:00. Creatinine 0.74(L) 0.80 - 1.30 mg/dL [facility] Comment:Collection date/time has been modified to: 17:20:00. Previous collection date/time: 20:00:00. Glucose 104 70 - 199 mg/dL [facility] Comment: Collection date/time has been modified to: 17:20:00. Previous collection date/time: 20:00:00. Interpretive Data Fasting glucose >/= 126 mg/dl [...] interpretive data was last revised 2022. Calcium 7.7(L) 8.5 - 10.3 mg/dL [facility] Comment:Collection date/time has been modified to: 17:20:00. Previous collection date/time: 20:00:00. Blood 05/27/2025 5:20 PM CDT 05/27/2025 5:28 PM CDT Dimple Bailey MD PhD LAB BLOOD ORDERABLES Ed ited Result - Final Performing Organization Address [facility] de Phone Number [facility] Department [place] [address] * Cystatin C (05/27/2025 4:37 PM CDT) Cystatin C 0.98 0.60 - 1.20 mg/L Comment: Interpretive Data Cystatin C concentrations vary widely in the first month of life, particularly in pre-term infants. Concentrations gradually diminish to adult levels by 1 year of life. Concentrations tend to rise with diminishing renal function in individuals greater than 60 years of age. Current Interpretive Data was last revised on 2020. Testing performed by: [facility] [place]., [address] Blood 05/27/2025 4:37 PM CDT 05/27/2025 8:16 PM CDT us Notinfile Unknown LAB BLOOD ORDERABLES Final Res ult Performing Organization Address [facility] Co de Phone Number [facility] Department [place] [address] * US Kidney Complete (05/27/2025 10:40 AM CDT) Anatomical Region Laterality Modality Kidney N/A Ultrasound 05/27/2025 10:5 0 AM CDT Impressions 05/27/2025 11:27 AM CDT Normal sonographic appearance of the kidneys without hydronephrosis. Dictated by: Sukhi Collins MD PHD The radiology attending physician has personally reviewed this study, and had reviewed and/or edited this written report and agrees with it. Electronically signed by: Paula Uribe M.D. Narrative 05/27/2025 11:27 AM CDT EXAMINATION: COMPLETE RENAL SONOGRAM HISTORY: Concern for chronic kidney disease COMPARISON: None FINDINGS: Kidneys: The echogenicity of both kidneys is normal. The kidneys are normal in size. The right kidney measures 10.7 cm in length, and the left, 12.8 cm in length. There is no hydronephrosis in either kidney. There are no renal calculi visualized. Bladder: The urinary bladder is normal Procedure Note Paula Uribe MD - 05/27/2025 EXAMINATION: COMPLETE RENAL SONOGRAM HISTORY: Concern for chronic kidney disease COMPARISON: None FINDINGS: Kidneys: The echogenicity of both kidneys is normal. The kidneys are normal in size. The right kidney measures 10.7 cm in length, and the left, 12.8 cm in length. There is no hydronephrosis in either kidney. There are no renal calculi visualized. Bladder: The urinary bladder is normal IMPRESSION: Normal sonographic appearance of the kidneys without hydronephrosis. Dictated by: Sukhi Collins MD PHD The radiology attending physician has personally reviewed this study, and had reviewed and/or edited this written report and agrees with it. Electronically signed by: Paula Uribe M.D. us Dimple Bailey MD PhD IMG US PROCEDURES Final Result * (ABNORMAL) Immature platelet fraction (05/27/2025 3:20 AM CDT) IPF 33.8(H) 1.6 - 10.1 % Blood 05/27/2025 3:20 AM CDT 05/27/2025 4:00 AM CDT us Notinfile Unknown LAB BLOOD ORDERABLES Final Res ult [facility] Department [place] [address] * (ABNORMAL) Differential, auto (05/27/2025 3:20 AM CDT) Neutrophil abs 0.71(L) 1.50 - 6.50 K/cumm Imm gran abs 0.01 0.00 - 0.10 K/cumm [facility] Lymphocyte abs 0.73(L) 0.80 - 3.30 K/cumm [facility] Monocyte abs 0.07(L) 0.20 - 0.80 K/cumm [facility] Eosinophil abs 0.06 0.00 - 0.50 K/cumm [facility] Basophil abs 0.01 0.00 - 0.10 K/cumm [facility] Neutrophil pct 44.7 % [facility] Comment: Interpretive Data Percent cell count reference ranges are not reported, since discordance with absolute values may lead to misinterpretation of CBC data. Current Interpretive Data was last revised on 2018. Imm gran pct 0.6 % [facility] Comment: Interpretive Data Percent cell count reference ranges are not reported, since discordance with absolute values may lead to misinterpretation of CBC data. Current Interpretive Data was last revised on 2018. Lymphocyte pct 45.9 % [facility] Comment: Interpretive Data Percent cell count reference ranges are not reported, since discordance with absolute values may lead to misinterpretation of CBC data. Current Interpretive Data was last revised on 2018. Monocyte pct 4.4 % [facility] Comment: Interpretive Data Percent cell count reference ranges are not reported, since discordance with absolute values may lead to misinterpretation of CBC data. Current Interpretive Data was last revised on 2018. Eosinophil pct 3.8 % [facility] Comment: Interpretive Data Percent cell count reference ranges are not reported, since discordance with absolute values may lead to misinterpretation of CBC data. Current Interpretive Data was last revised on 2018. Basophil pct 0.6 % [facility] Comment: Interpretive Data Percent cell count reference ranges are not reported, since discordance with absolute values may lead to misinterpretation of CBC data. Current Interpretive Data was last revised on 2018. Blood 05/27/2025 3:20 AM CDT 05/27/2025 3:45 AM CDT us Notinfile Unknown LAB BLOOD ORDERABLES Final Res ult Performing Organization Address City/[facility]/ZIP Co de Phone Number [facility] Department [place] [address] * (ABNORMAL) CBC with auto differential (05/27/2025 3:20 AM CDT) [facility] WBC 1.59(L) 3.80 - 9.90 K/cumm Hgb 8.1(L) 13.0 - 17.5 g/dL [facility] Hct 24.0(L) 38.9 - 50.3 % [facility] Plt 46(C) 150 - 400 K/cumm [facility] Comment:This result has been called to ravinder pappas rn by [id number] on 05/27/2025 04:09:52, and has been read back. MPV Not Measured 9.1 - 12.3 fL [facility] RBC 2.65(L) 4.30 - 5.80 M/cumm [facility] MCV 90.6 81.3 - 96.4 fL [facility] MCH 30.6 27.1 - 33.3 pg [facility] MCHC 33.8 32.3 - 35.7 g/dL [facility] RDW CV 17.3(H) 11.1 - 14.9 % [facility] RDW SD 53.6(H) 35.7 - 48.1 fL [facility] NRBC abs 2.21(H) 0.00 - 0.01 K/cumm [facility] Blood 05/27/2025 3:20 AM CDT 05/27/2025 3:45 AM CDT us Notinfile Unknown LAB BLOOD ORDERABLES Final Res ult Performing Organization Address City/[facility]/ZIP Co de Phone Number [facility] Department [place] [address] * Calcium, ionized, whole blood (05/27/2025 2:57 AM CDT) Ca, ionized, bld 4.65 4.50 - 5.10 mg/dL Blood 05/27/2025 2:5 7 AM CDT 05/27/2025 3:04 AM CDT Dimple Bailey MD PhD LAB BLOOD ORDERABLES Fi nal Result Performing Organization Address [facility] Co de Phone Number [facility] Department [place] [address] * eGFR (05/27/2025 2:57 AM CDT) eGFR >90 >=60 mL/min/1. 73 [...] of Race in Diagnosing Kidney Disease, JASN 2020). The CKD-EPI equation should not be used for patients with unstable renal function and has not been validated in children and those over 70. Current interpretive data was last reviewed 2021. Blood 05/27/2025 2:57 AM CDT 05/27/2025 3:04 AM CDT Erika Chandler DO LAB BLOOD ORDERABLES Final Resul t Performing Organization Address [facility] Co de Phone Number [facility] Department [place] [address] * (ABNORMAL) CBC with auto differential (05/27/2025 2:57 AM CDT) [facility] WBC 2.37(L) 3.80 - 9.90 K/cumm Hgb 5.5(C) 13.0 - 17.5 g/dL [facility] Comment:This result has been called to tiffanie wu rn by [id number] on 05/27/2025 03:15:01, and has been read back. Hct 16.1(L) 38.9 - 50.3 % [facility] Plt 66(L) 150 - 400 K/cumm [facility] MPV 14.5(H) 9.1 - 12.3 fL [facility] RBC 1.78(L) 4.30 - 5.80 M/cumm [facility] MCV 90.4 81.3 - 96.4 fL [facility] MCH 30.9 27.1 - 33.3 pg [facility] MCHC 34.2 32.3 - 35.7 g/dL [facility] RDW CV 17.3(H) 11.1 - 14.9 % [facility] RDW SD 54.4(H) 35.7 - 48.1 fL [facility] NRBC abs 1.72(H) 0.00 - 0.01 K/cumm [facility] Morphologic Screen Results confirmed by manual morphology review. [facility] Blood 05/27/2025 2:57 AM CDT 05/27/2025 3:04 AM CDT us Sandy Meraz NP LAB BLOOD ORDERABLES Edited Result - Final [facility] [place] [address] * (ABNORMAL) Manual Differential (05/27/2025 2:57 AM CDT) [facility] Differential Manual Cells Counted 114 [facility] Neutrophil abs 1.31(L) 1.50 - 6.50 K/cumm [facility] Lymphocyte abs 0.94 0.80 - 3.30 K/cumm [facility] Eosinophil abs 0.08 0.00 - 0.50 K/cumm [facility] Neutrophil pct 55.2 % [facility] Comment: Interpretive Data Percent cell count reference ranges are not reported, since discordance with absolute values may lead to misinterpretation of CBC data. Current Interpretive Data was last revised on 2018. Lymphocyte pct 39.5 % [facility] Comment: Interpretive Data Percent cell count reference ranges are not reported, since discordance with absolute values may lead to misinterpretation of CBC data. Current Interpretive Data was last revised on 2018. Eosinophil pct 3.5 % [facility] Comment: Interpretive Data Percent cell count reference ranges are not reported, since discordance with absolute values may lead to misinterpretation of CBC data. Current Interpretive Data was last revised on 2018. Blast pct 1.8(C) 0.0 - 0.0 [facility] Comment:Critical value greene d within last 30 days. Blood 05/27/2025 2:57 AM CDT 05/27/2025 3:06 AM CDT Sandy Meraz [employer] LAB BLOOD ORDERABLES Final R esult Performing Organization Address City/[facility]/ZIP Co de Phone Number [facility] [place] [address] * Type and screen (05/27/2025 2:57 AM CDT) Benjy, indirect Negative ABO Rh B Positive [facility] Blood 05/27/2025 2:57 AM CDT 05/27/2025 3:12 AM CDT Narrative [facility] - 05/27/2025 4:23 AM CDT Has the patient had Daratumumab or Isatuximab in the past 6 months?->Unknown Erika Chandler DO LAB BLOOD BANK TEST ORDERABLES F inal Result [facility] [place] [address] * Uric acid (05/27/2025 2:57 AM CDT) Pathologist [facility] Uric acid 4.5 3.0 - 8.0 mg/dL Blood 05/27/2025 2:57 AM CDT 05/27/2025 3:04 AM CDT us Tania Lott MD PhD LAB BLOOD ORDERABLES Fin al Result Performing Organization Address City/[facility] de Phone Number [facility] Department [place] [address] * Phosphorus (05/27/2025 2:57 AM CDT) Pathologist [facility] Phosphorus, pl 4.3 2.3 - 4.5 mg/dL Blood 05/27/2025 2:57 AM CDT 05/27/2025 3:04 AM CDT us Tania Lott MD PhD LAB BLOOD ORDERABLES Fin al Result Performing Organization Address [facility] de Phone Number [facility] [place] [address] * Magnesium (05/27/2025 2:57 AM CDT) Pathologist [facility] Magnesium 2.3 1.4 - 2.5 mg/dL Blood 05/27/2025 2:57 AM CDT 05/27/2025 3:04 AM CDT us Sandy Meraz [employer] LAB BLOOD ORDERABLES Final R esult Performing Organization Address [facility] de Phone Number [facility] [place] [address] * (ABNORMAL) Lactate dehydrogenase (LD) (05/27/2025 2:57 AM CDT) Pathologist [facility] Lactate dehydrogenase (LDH) 448(H) 100 - 250 Units/L Blood 05/27/2025 2:57 AM CDT 05/27/2025 3:04 AM CDT us Tania Lott MD PhD LAB BLOOD ORDERABLES Fin al Result [facility] Department [place] [address] * (ABNORMAL) Comprehensive metabolic panel (05/27/2025 2:57 AM CDT) Sodium 138 135 - 145 mmol/L Potassium, pl 3.9 3.3 - 4.9 mmol/L [facility] Chloride 98 97 - 110 mmol/L [facility] CO2 31 22 - 32 mmol/L [facility] Anion gap 9 2 - 15 mmol/L [facility] BUN 15 6 - 25 mg/dL [facility] Creatinine 0.92 0.80 - 1.30 mg/dL [facility] Glucose 102 70 - 199 mg/dL [facility] Comment: Interpretive Data Fasting glucose >/= 126 [...] interpretive data was last revised 2022. Calcium 8.8 8.5 - 10.3 mg/dL [facility] Bilirubin, total 0.7 0.1 - 1.2 mg/dL [facility] Protein, pl 6.3(L) 6.5 - 8.5 g/dL [facility] Albumin 3.5 3.5 - 5.0 g/dL [facility] Alk phos 61 40 - 130 Units/L [facility] ALT 51 7 - 55 Units/L [facility] AST 40 10 - 50 Units/L [facility] Blood 05/27/2025 2:57 AM CDT 05/27/2025 3:04 AM CDT [facility]25 3:47 AM CDT Saturday and only. Morning draw. us Erika Chandler DO LAB BLOOD ORDERABLES Final Resul t Performing Organization Address [facility]/ZIP Co de Phone Number [facility] [place] [address] * eGFR (05/26/2025 2:03 PM CDT) eGFR >90 >=60 mL/min/1. 73 m2 [...] of Race in Diagnosing Kidney Disease, JASN 2020). The CKD-EPI equation should not be used for patients with unstable renal function and has not been validated in children and those over 70. Current interpretive data was last reviewed 2021. Blood 05/26/2025 2:03 PM CDT 05/26/2025 2:28 PM CDT us Dimple Baliey MD PhD LAB BLOOD ORDERABLES Fi nal Result Performing Organization Address City/[facility]/ZIP Co de Phone Number [facility] Department [place] [address] * Uric acid (05/26/2025 2:03 PM CDT) Uric acid 4.7 3.0 - 8.0 mg/dL Blood 05/26/2025 2:03 PM CDT 05/26/2025 2:28 PM CDT Dimple Bailey MD PhD LAB BLOOD ORDERABLES Fi nal Result Performing Organization Address City/[facility]/ZIP Co de Phone Number [facility] [place] [address] * Phosphorus (05/26/2025 2:03 PM CDT) Phosphorus, pl 4.1 2.3 - 4.5 mg/dL Blood 05/26/2025 2:03 PM CDT 05/26/2025 2:28 PM CDT Dimple Bailey MD PhD LAB BLOOD ORDERABLES Fi nal Result Performing Organization Address [facility] de Phone Number [facility] Department [place] [address] * Basic metabolic panel (05/26/2025 2:03 PM CDT) Pathologist [facility] Sodium 138 135 - 145 mmol/L Potassium, pl 4.0 3.3 - 4.9 mmol/L [facility] Chloride 102 97 - 110 mmol/L [facility] CO2 29 22 - 32 mmol/L [facility] Anion gap 7 2 - 15 mmol/L [facility] BUN 13 6 - 25 mg/dL [facility] Creatinine 0.91 0.80 - 1.30 mg/dL [facility] Glucose 122 70 - 199 mg/dL [facility] Comment: Interpretive Data Fasting glucose >/= 126 [...] 2022. Calcium 8.5 8.5 - 10.3 mg/dL [facility] Blood 05/26/2025 2:03 PM CDT 05/26/2025 2:28 PM CDT us Dimple Bailey MD PhD LAB BLOOD ORDERABLES Fi nal Result Performing Organization Address City/[facility]/ZIP Co de Phone Number [facility] [place] [address] * (ABNORMAL) Immature platelet fraction (05/26/2025 12:40 AM CDT) IPF 32.8(H) 1.6 - 10.1 % Blood 05/26/2025 12:4 0 AM CDT 05/26/2025 1:00 AM CDT us Sandy Meraz NP LAB BLOOD ORDERABLES Final R esult Performing Organization Address [facility] Co de Phone Number [facility] [place] [address] * eGFR (05/26/2025 12:40 AM CDT) eGFR >90 >=60 mL/min/1. 73 [...] of Race in Diagnosing Kidney Disease, JASN 2020). The CKD-EPI equation should not be used for patients with unstable renal function and has not been validated in children and those over 70. Current interpretive data was last reviewed 2021. Blood 05/26/2025 12:4 0 AM CDT 05/26/2025 1:03 AM CDT us Dimple Bailey MD PhD LAB BLOOD ORDERABLES Fi nal Result [facility] Department [place] [address] * Pro B-type natriuretic peptide (05/26/2025 12:40 AM CDT) NT-proBNP 243 <=300 pg/mL Comment: Interpretive Comments: A. Dyspnea in Acute Care Setting All Ages: < 300 pg/ml, acute heart failure unlikely. < 50 yrs: 300 - 450 pg/ml, further investigation warranted. > 450 pg/ml, acute heart failure likely. 50 - 74 yrs: 300 - 900 pg/ml, further investigation warranted. > 900 pg/ml, acute heart failure likely . > or = 75 yrs: 450 - 1800 pg/ml, further investigation warranted. > 1800 pg/ml, acute heart failure likely. B. Non-acute Setting < 75 yrs < 125 pg/ml, rules out heart failure. > or = 125 pg/ml, further investigation warranted. > or = 75 yrs < 450 pg/ml, rules out heart failure. > or = 450 pg/ml, further investigation warranted. - Knowledge of each individual patient's NT-proBNP range may be more useful than using similar cut-points for every patient. Please note that marked elevations in NT-proBNP levels may be observed in state other than Left Ventricular Congestive Failure, including: acute coronary syndromes, right heart strain/failure (including pulmonary embolism and cor pulmonale), critical illness, renal failure, as well as advanced age. - References: 1. Julián CID et.al. Eur Heart J. 2006:27:330-337. 2. Kelvin RW, Santiago AM. J. AM Ericka Cardiol: Cardiovasc Imag. 2009;2: 216- 225. Interpretive Data Last Revised Date: 2018. Blood 05/26/2025 12:4 0 AM CDT 05/26/2025 1:03 AM CDT us Dimple Bailey MD PhD LAB BLOOD ORDERABLES Fi nal Result Performing Organization Address City/[facility] Co de Phone Number [facility] Department [place] [address] * (ABNORMAL) CBC with auto differential (05/26/2025 12:40 AM CDT) Pathologist [facility] WBC 1.82(L) 3.80 - 9.90 K/cumm Hgb 8.3(L) 13.0 - 17.5 g/dL [facility] Hct 25.6(L) 38.9 - 50.3 % [facility] Plt 48(C) 150 - 400 K/cumm [facility] Comment:Platelet count confi rmed by additional testing. Critical platelet count threshold determined by patient location: Outpatient:<50 K/cumm , Inpatient adults:<20 K/cumm , Inpatient pediatric:<25 K/cumm, BMT service:<10 K/cumm MPV Not Measured 9.1 - 12.3 fL [facility] RBC 2.79(L) 4.30 - 5.80 M/cumm [facility] MCV 91.8 81.3 - 96.4 fL [facility] MCH 29.7 27.1 - 33.3 pg [facility] MCHC 32.4 32.3 - 35.7 g/dL [facility] RDW CV 17.5(H) 11.1 - 14.9 % [facility] RDW SD 54.9(H) 35.7 - 48.1 fL [facility] NRBC abs 2.77(H) 0.00 - 0.01 K/cumm [facility] Blood 05/26/2025 12:4 0 AM CDT 05/26/2025 12:56 AM CDT us Sandy Meraz [employer] LAB BLOOD ORDERABLES Final R esult Performing Organization Address City/[facility]/ZIP Co de Phone Number [facility] Department [place] [address] * (ABNORMAL) Vitamin D 25 hydroxy (05/26/2025 12:40 AM CDT) Pathologist [facility] Vitamin D 25-OH 23(L) 30 - 80 ng/mL Blood 05/26/2025 12:4 0 AM CDT 05/26/2025 12:52 AM CDT us Dimple Bailey MD PhD LAB BLOOD ORDERABLES Fi nal Result Performing Organization Address [facility] Co de Phone Number [facility] Department [place] [address] * (ABNORMAL) Manual Differential (05/26/2025 12:40 AM CDT) [facility] Differential Manual Cells Counted 95 [facility] Neutrophil abs 0.94(L) 1.50 - 6.50 K/cumm [facility] Lymphocyte abs 0.79(L) 0.80 - 3.30 K/cumm [facility] Eosinophil abs 0.02 0.00 - 0.50 K/cumm [facility] Neutrophil pct 51.5 % [facility] Comment: Interpretive Data Percent cell count reference ranges are not reported, since discordance with absolute values may lead to misinterpretation of CBC data. Current Interpretive Data was last revised on 2018. Lymphocyte pct 43.2 % [facility] Comment: Interpretive Data Percent cell count reference ranges are not reported, since discordance with absolute values may lead to misinterpretation of CBC data. Current Interpretive Data was last revised on 2018. Eosinophil pct 1.1 % [facility] Comment: Interpretive Data Percent cell count reference ranges are not reported, since discordance with absolute values may lead to misinterpretation of CBC data. Current Interpretive Data was last revised on 2018. Blast pct 4.2(C) 0.0 - 0.0 [facility] Comment:Critical value greene d within last 30 days. RBC morphology Present(A) [facility] Anisocytosis Slight(A) [facility] Macrocytes 3-7/HPF(A) [facility] Platelet estimate Decreased( A) [facility] Blood 05/26/2025 12:4 0 AM CDT 05/26/2025 1:00 AM CDT us Sandy Meraz [employer] LAB BLOOD ORDERABLES Final R esult Performing Organization Address City/[facility] Co de Phone Number [facility] [place] [address] * Uric acid (05/26/2025 12:40 AM CDT) Uric acid 4.4 3.0 - 8.0 mg/dL Blood 05/26/2025 12:4 0 AM CDT 05/26/2025 12:52 AM CDT us Tania Lott MD PhD LAB BLOOD ORDERABLES Fin al Result Performing Organization Address [facility] Co de Phone Number [facility] [place] [address] * Phosphorus (05/26/2025 12:40 AM CDT) Phosphorus, pl 4.5 2.3 - 4.5 mg/dL Blood 05/26/2025 12:4 0 AM CDT 05/26/2025 12:52 AM CDT us Tania Lott MD PhD LAB BLOOD ORDERABLES Fin al Result Performing Organization Address City/[facility] Co de Phone Number [facility] [place] [address] * (ABNORMAL) PTH (05/26/2025 12:40 AM CDT) PTH 127(H) 15 - 65 pg/mL Blood 05/26/2025 12:4 0 AM CDT 05/26/2025 12:56 AM CDT us Junior Barnhart MD LAB BLOOD ORDERABL ES Final Result Performing Organization Address [facility] Co de Phone Number [facility] [place] [address] * Magnesium (05/26/2025 12:40 AM CDT) Magnesium 2.2 1.4 - 2.5 mg/dL Blood 05/26/2025 12:4 0 AM CDT 05/26/2025 12:52 AM CDT us Sandy Meraz NP LAB BLOOD ORDERABLES Final R esult Performing Organization Address [facility] de Phone Number [facility] [place] [address] * (ABNORMAL) Lactate dehydrogenase (LD) (05/26/2025 12:40 AM CDT) Lactate dehydrogenase (LDH) 450(H) 100 - 250 Units/L Blood 05/26/2025 12:4 0 AM CDT 05/26/2025 12:52 AM CDT us Tania Lott MD PhD LAB BLOOD ORDERABLES Fin al Result Performing Organization Address City/[facility] Co de Phone Number [facility] [place] [address] * Gamma GT (05/26/2025 12:40 AM CDT) GGT 27 10 - 50 Units/L Blood 05/26/2025 12:4 0 AM CDT 05/26/2025 1:03 AM CDT us Dimple Bailey MD PhD LAB BLOOD ORDERABLES Fi nal Result Performing Organization Address City/State/[facility] Co de Phone Number [facility] Department [place] [address] * (ABNORMAL) Comprehensive metabolic panel (05/26/2025 12:40 AM CDT) Sodium 140 135 - 145 mmol/L Potassium, pl 4.1 3.3 - 4.9 mmol/L [facility] Chloride 104 97 - 110 mmol/L [facility] CO2 30 22 - 32 mmol/L [facility] Anion gap 6 2 - 15 mmol/L [facility] BUN 14 6 - 25 mg/dL [facility] Creatinine 0.89 0.80 - 1.30 mg/dL [facility] Glucose 108 70 - 199 mg/dL [facility] Comment: Interpretive Data Fasting glucose >/= 126 [...] classification and Diagnosis of Diabetes Diabetes Care 202; 46: S19-S40. Current interpretive data was last revised 2022. Calcium 8.4(L) 8.5 - 10.3 mg/dL [facility] Bilirubin, total 0.6 0.1 - 1.2 mg/dL [facility] Protein, pl 5.6(L) 6.5 - 8.5 g/dL [facility] Albumin 3.2(L) 3.5 - 5.0 g/dL [facility] Alk phos 53 40 - 130 Units/L [facility] ALT 47 7 - 55 Units/L [facility] AST 35 10 - 50 Units/L [facility] Blood 05/26/2025 12:4 0 AM CDT 05/26/2025 12:52 AM CDT us Dimple Bailey MD PhD LAB BLOOD ORDERABLES Fi nal Result Performing Organization Address City/State/[facility] Co de Phone Number [facility] Department [place] [address] * eGFR (05/25/2025 8:18 PM CDT) eGFR >90 >=60 mL/min/1. 73 m2 [...] of Race in Diagnosing Kidney Disease, JASN 2020). The CKD-EPI equation should not be used for patients with unstable renal function and has not been validated in children and those over 70. Current interpretive data was last reviewed 2021. Blood 05/25/2025 8:18 PM CDT 05/25/2025 8:29 PM CDT us Dimple Bailey MD PhD LAB BLOOD ORDERABLES Fi nal Result Performing Organization Address [facility] Co de Phone Number [facility] Department [place] [address] * Uric acid (05/25/2025 8:18 PM CDT) Uric acid 4.2 3.0 - 8.0 mg/dL Blood 05/25/2025 8:18 PM CDT 05/25/2025 8:29 PM CDT Dimple Bailey MD PhD LAB BLOOD ORDERABLES Fi nal Result Performing Organization Address [facility]/ZIP Co de Phone Number [facility] Department [place] [address] * Phosphorus (05/25/2025 8:18 PM CDT) [facility] Phosphorus, pl 4.1 2.3 - 4.5 mg/dL Blood 05/25/2025 8:18 PM CDT 05/25/2025 8:29 PM CDT Dimple Bailey MD PhD LAB BLOOD ORDERABLES Fi nal Result [facility] [place] [address] * Basic metabolic panel (05/25/2025 8:18 PM CDT) [facility] Sodium 137 135 - 145 mmol/L Potassium, pl 3.8 3.3 - 4.9 mmol/L [facility] Chloride 100 97 - 110 mmol/L [facility] CO2 30 22 - 32 mmol/L [facility] Anion gap 7 2 - 15 mmol/L [facility] BUN 15 6 - 25 mg/dL [facility] Creatinine 0.91 0.80 - 1.30 mg/dL [facility] Glucose 155 70 - 199 mg/dL [facility] Comment: Interpretive Data Fasting glucose >/= 126 [...] classification and Diagnosis of Diabetes Diabetes Care 202; 46: S19-S40. Current interpretive data was last revised 2022. Calcium 8.7 8.5 - 10.3 mg/dL [facility] Blood 05/25/2025 8:18 PM CDT 05/25/2025 8:29 PM CDT Dimple Bailey MD PhD LAB BLOOD ORDERABLES Fi nal Result Performing Organization Address City/[facility]/ZIP Co de Phone Number [facility] Department [place] [address] * eGFR (05/25/2025 3:36 PM CDT) eGFR >90 >=60 mL/min/1. 73 m2 [...] of Race in Diagnosing Kidney Disease, JASN 2020). The CKD-EPI equation should not be used for patients with unstable renal function and has not been validated in children and those over 70. Current interpretive data was last reviewed 2021. Blood 05/25/2025 3:36 PM CDT 05/25/2025 3:46 PM CDT Dimple Bailey MD PhD LAB BLOOD ORDERABLES Fi nal Result [facility] Department [place] [address] * Uric acid (05/25/2025 3:36 PM CDT) Uric acid 3.8 3.0 - 8.0 mg/dL Blood 05/25/2025 3:36 PM CDT 05/25/2025 3:46 PM CDT Dimple Bailey MD PhD LAB BLOOD ORDERABLES Fi nal Result [facility] [place] [address] * Phosphorus (05/25/2025 3:36 PM CDT) [facility] Phosphorus, pl 4.3 2.3 - 4.5 mg/dL Blood 05/25/2025 3:36 PM CDT 05/25/2025 3:46 PM CDT Dimple Bailey MD PhD LAB BLOOD ORDERABLES Fi nal Result Performing Organization Address City/[facility] Co de Phone Number [facility] [place] [address] * Basic metabolic panel (05/25/2025 3:36 PM CDT) [facility] Sodium 139 135 - 145 mmol/L Potassium, pl 4.2 3.3 - 4.9 mmol/L [facility] Chloride 101 97 - 110 mmol/L [facility] CO2 30 22 - 32 mmol/L [facility] Anion gap 8 2 - 15 mmol/L [facility] BUN 15 6 - 25 mg/dL [facility] Creatinine 0.91 0.80 - 1.30 mg/dL [facility] Glucose 133 70 - 199 mg/dL [facility] Comment: Interpretive Data Fasting glucose >/= 126 [...] interpretive data was last revised 2022. Calcium 8.8 8.5 - 10.3 mg/dL [facility] Blood 05/25/2025 3:36 PM CDT 05/25/2025 3:46 PM CDT us Dimple Bailey MD PhD LAB BLOOD ORDERABLES Fi nal Result Performing Organization Address City/[facility]/ZIP Co de Phone Number [facility] Department [place] [address] * Urinalysis reflex to microscopic and culture Urine (05/25/2025 1:14 PM CDT) Color, ur Straw Yellow Clarity, ur Clear Clear [facility] Specific gravity, ur 1.009 1.003 - 1.030 [facility] pH, urine 6.0 [facility] Comment: Interpretive Data U rine pH is affected by diet, medications, systemic acid-base disturbances, and renal tubular function. pH may affect urinary stone formation. For example, urine pH below 6.0 may help reduce the tendency for calcium phosphate stones and pH greater than 6.0 may reduce the tendency for uric acid stone formation. Source: [facility] Current Interpretive Data was last revised on 2017 Protein, ur ql Negative Negative [facility] Glucose, ur ql Negative Negative [facility] Ketones, ur Negative Negative [facility] Bilirubin, ur Negative Negative [facility] Blood, ur Negative Negative [facility] Urobilinogen, ur <2.0 <2.0 mg/dL [facility] Nitrite, ur Negative Negative [facility] Leukocyte esterase, ur Negative Negative [facility] UA reflex comment Reflex conditions for microscopic UA and culture not met. [facility] Urine 05/25/2025 1:14 PM CDT 05/25/2025 1:49 PM CDT us Dimple Bailey MD PhD LAB MICROBIOLOGY - GENE RAL ORDERABLES Final Result Performing Organization Address City/[facility]/ZIP Co de Phone Number [facility] Department [place] [address] * Urea nitrogen, urine, random (05/25/2025 1:14 PM CDT) Urea nitrogen, ur 243 mg/dL Comment: Interpretive Data No reference range established. Current interpretive data was last revised 2019. Urine 05/25/2025 1:14 PM CDT 05/25/2025 2:05 PM CDT Dimple Bailey MD PhD LAB URINE ORDERABLES Fi nal Result Performing Organization Address [facility] de Phone Number [facility] [place] [address] * (ABNORMAL) Protein / creatinine ratio, urine, random (05/25/2025 1:14 PM CDT) Pathologist [facility] Protein, ur, quant 9.8 mg/dL Comment: Interpretive Data No reference range established. Current interpretive data was last revised 2019. Creatinine Ur 35.1 mg/dL [facility] Comment: Interpretive Data No reference range established. Current interpretive data was last revised 2019. Protein/creatinin e ratio 279.2(H) 0.0 - 180.0 mg/g CR [facility] Urine 05/25/2025 1:14 PM CDT 05/25/2025 2:05 PM CDT Dimple Bailey MD PhD LAB URINE ORDERABLES Fi nal Result Performing Organization Address [facility] de Phone Number [facility] [place] [address] * (ABNORMAL) Albumin Creatinine Ratio, Urine (05/25/2025 1:14 PM CDT) Pathologist [facility] Albumin Ur 17.3 mg/L Comment: Interpretive Data No reference range established. Current interpretive data was last revised 2019. Creatinine Ur 35.1 mg/dL [facility] Comment: Interpretive Data No reference range established. Current interpretive data was last revised 2019. Albumin Creatinine Ratio, Ur 48(H) 1 - 29 mg/g [facility] Urine 05/25/2025 1:14 PM CDT 05/25/2025 2:39 PM CDT Dimple Bailey MD PhD LAB URINE ORDERABLES Fi nal Result Performing Organization Address [facility] de Phone Number [facility] [place] [address] * Sodium, urine, random (05/25/2025 1:14 PM CDT) Pathologist [facility] Sodium, ur 68 mmol/L Comment: Interpretive Data No reference range established. Current interpretive data was last revised 2019. Urine 05/25/2025 1:14 PM CDT 05/25/2025 2:05 PM CDT Dimple Bailey MD PhD LAB URINE ORDERABLES Fi nal Result Performing Organization Address [facility] de Phone Number [facility] Department [place] [address] * (ABNORMAL) Immature platelet fraction (05/25/2025 12:51 AM CDT) Pathologist [facility] IPF 31.6(H) 1.6 - 10.1 % Blood 05/25/2025 12:5 1 AM CDT 05/25/2025 1:05 AM CDT Sandy Meraz MIDDLE [employer] INTERMEDIATE [employer] PRINCIPAL LAB BLOOD ORDERABLES Final R esult Performing Organization Address [facility] Co de Phone Number [facility] [place] [address] * eGFR (05/25/2025 12:51 AM CDT) [facility] eGFR >90 >=60 mL/min/1. 73 m2 Comment: [...] of Race in Diagnosing Kidney Disease, JASN 2020). The CKD-EPI equation should not be used for patients with unstable renal function and has not been validated in children and those over 70. Current interpretive data was last reviewed 2021. Blood 05/25/2025 12:5 1 AM CDT 05/25/2025 1:02 AM CDT us Tania Lott MD PhD LAB BLOOD ORDERABLES Fin al Result Performing Organization Address City/[facility]/ZIP Co de Phone Number [facility] Department [place] [address] * Cystatin C (05/25/2025 12:51 AM CDT) [facility] Signature Cystatin C 1.16 0.60 - 1.20 mg/L Comment: Interpretive Data Cystatin C concentrations vary widely in the first month of life, particularly in pre-term infants. Concentrations gradually diminish to adult levels by 1 year of life. Concentrations tend to rise with diminishing renal function in individuals greater than 60 years of age. Current Interpretive Data was last revised on 2020. Testing performed by: [facility], [facility], [place]., [address] Blood 05/25/2025 12:5 1 AM CDT 05/25/2025 12:53 PM CDT us Dimple Bailey MD PhD LAB BLOOD ORDERABLES Fi nal Result Performing Organization Address City/[facility]/ZIP Co de Phone Number [facility] Department [place] [address] * Extra slide preparation (05/25/2025 12:51 AM CDT) Pathologist [facility] Extra slide prep Slide available for pickup from the lab. Blood 05/25/2025 12:5 1 AM CDT 05/25/2025 1:05 AM CDT Junior Barnhart MD LAB BLOOD ORDERABL ES Final Result [facility] Department [place] [address] * (ABNORMAL) CBC with auto differential (05/25/2025 12:51 AM CDT) Pathologist [facility] WBC 2.51(L) 3.80 - 9.90 K/cumm Hgb 8.7(L) 13.0 - 17.5 g/dL [facility] Hct 25.8(L) 38.9 - 50.3 % [facility] Plt 45(C) 150 - 400 K/cumm [facility] Comment:Platelet count confi rmed by additional testing. Critical platelet count threshold determined by patient location: Outpatient:<50 K/cumm , Inpatient adults:<20 K/cumm , Inpatient pediatric:<25 K/cumm, BMT service:<10 K/cumm MPV Not Measured 9.1 - 12.3 fL [facility] RBC 2.87(L) 4.30 - 5.80 M/cumm [facility] MCV 89.9 81.3 - 96.4 fL [facility] MCH 30.3 27.1 - 33.3 pg [facility] MCHC 33.7 32.3 - 35.7 g/dL [facility] RDW CV 17.7(H) 11.1 - 14.9 % [facility] RDW SD 54.2(H) 35.7 - 48.1 fL [facility] NRBC abs 3.70(H) 0.00 - 0.01 K/cumm [facility] Morphologic Screen Results confirmed by manual morphology review. [facility] Blood 05/25/2025 12:5 1 AM CDT 05/25/2025 1:02 AM CDT us Sandy Meraz NP LAB BLOOD ORDERABLES Edited Result - Final [facility] Department [place] [address] * (ABNORMAL) Manual Differential (05/25/2025 12:51 AM CDT) Differential Manual Cells Counted 79 [facility] Neutrophil abs 1.17(L) 1.50 - 6.50 K/cumm [facility] Lymphocyte abs 0.92 0.80 - 3.30 K/cumm [facility] Eosinophil abs 0.10 0.00 - 0.50 K/cumm [facility] Basophil abs 0.10 0.00 - 0.10 K/cumm [facility] Neutrophil pct 46.8 % [facility] Comment: Interpretive Data Percent cell count reference ranges are not reported, since discordance with absolute values may lead to misinterpretation of CBC data. Current Interpretive Data was last revised on 2018. Lymphocyte pct 36.7 % [facility] Comment: Interpretive Data Percent cell count reference ranges are not reported, since discordance with absolute values may lead to misinterpretation of CBC data. Current Interpretive Data was last revised on 2018. Eosinophil pct 3.8 % [facility] Comment: Interpretive Data Percent cell count reference ranges are not reported, since discordance with absolute values may lead to misinterpretation of CBC data. Current Interpretive Data was last revised on 2018. Basophil pct 3.8 % [facility] Comment: Interpretive Data Percent cell count reference ranges are not reported, since discordance with absolute values may lead to misinterpretation of CBC data. Current Interpretive Data was last revised on 2018. Blast pct 8.9(C) 0.0 - 0.0 [facility] Comment:Critical value greene d within last 30 days. Smudge cells, qual Present(A) [facility] RBC morphology Present(A) [facility] Platelet clumping Present(A) [facility] Blood 05/25/2025 12:5 1 AM CDT 05/25/2025 1:05 AM CDT Sandy Meraz [employer] PRINCIPAL LAB BLOOD ORDERABLES Edited Result - Final Performing Organization Address [facility] Co de Phone Number [facility] [place] [address] * (ABNORMAL) Uric acid (05/25/2025 12:51 AM CDT) Uric acid 2.8(L) 3.0 - 8.0 mg/dL Blood 05/25/2025 12:5 1 AM CDT 05/25/2025 1:02 AM CDT us Tania Lott MD PhD LAB BLOOD ORDERABLES Fin al Result Performing Organization Address [facility] Co de Phone Number [facility] Department [place] [address] * Phosphorus (05/25/2025 12:51 AM CDT) Phosphorus, pl 3.4 2.3 - 4.5 mg/dL Blood 05/25/2025 12:5 1 AM CDT 05/25/2025 1:02 AM CDT us Tania Lott MD PhD LAB BLOOD ORDERABLES Fin al Result Performing Organization Address City/[facility] Co de Phone Number [facility] [place] [address] * Magnesium (05/25/2025 12:51 AM CDT) Magnesium 2.1 1.4 - 2.5 mg/dL Blood 05/25/2025 12:5 1 AM CDT 05/25/2025 1:02 AM CDT us Sandy Meraz [employer] PRINCIPAL LAB BLOOD ORDERABLES Final R esult Performing Organization Address City/[facility]/ZIP Co de Phone Number [facility] Department [place] [address] * (ABNORMAL) Lactate dehydrogenase (LD) (05/25/2025 12:51 AM CDT) Pathologist [facility] Lactate dehydrogenase (LDH) 433(H) 100 - 250 Units/L Blood 05/25/2025 12:5 1 AM CDT 05/25/2025 1:02 AM CDT Tania Lott MD PhD LAB BLOOD ORDERABLES Fin al Result Performing Organization Address [facility] Co de Phone Number [facility] Department [place] [address] * (ABNORMAL) Basic metabolic panel (05/25/2025 12:51 AM CDT) [facility] Sodium 141 135 - 145 mmol/L Potassium, pl 3.6 3.3 - 4.9 mmol/L [facility] Chloride 105 97 - 110 mmol/L [facility] CO2 29 22 - 32 mmol/L [facility] Anion gap 7 2 - 15 mmol/L [facility] BUN 12 6 - 25 mg/dL [facility] Creatinine 0.73(L) 0.80 - 1.30 mg/dL [facility] Glucose 114 70 - 199 mg/dL [facility] Comment: Interpretive Data Fasting glucose >/= 126 [...] interpretive data was last revised 2022. Calcium 8.6 8.5 - 10.3 mg/dL [facility] Blood 05/25/2025 12:5 1 AM CDT 05/25/2025 1:02 AM CDT us Tania Lott MD PhD LAB BLOOD ORDERABLES Fin al Result Performing Organization Address City/[facility]/ZIP Co de Phone Number [facility] Department [place] [address] * (ABNORMAL) Immature platelet fraction (05/24/2025 8:22 PM CDT) IPF 30.1(H) 1.6 - 10.1 % Blood 05/24/2025 8:22 PM CDT 05/24/2025 8:48 PM CDT Dimple Bailey MD PhD LAB BLOOD ORDERABLES Fi nal Result Performing Organization Address City/[facility] Co de Phone Number [facility] Department [place] [address] * eGFR (05/24/2025 8:22 PM CDT) eGFR >90 >=60 mL/min/1. 73 m2 [...] interpretive data was last reviewed 2021. Blood 05/24/2025 8:22 PM CDT 05/24/2025 8:45 PM CDT Dimple Bailey MD PhD LAB BLOOD ORDERABLES Fi nal Result [facility] Department [place] [address] * (ABNORMAL) CBC with auto differential (05/24/2025 8:22 PM CDT) [facility] WBC 2.02(L) 3.80 - 9.90 K/cumm Hgb 8.7(L) 13.0 - 17.5 g/dL [facility] Hct 25.6(L) 38.9 - 50.3 % [facility] Plt 44(C) 150 - 400 K/cumm [facility] Comment:Platelet count confi rmed by additional testing. Critical platelet count threshold determined by patient location: Outpatient:<50 K/cumm , Inpatient adults:<20 K/cumm , Inpatient pediatric:<25 K/cumm, BMT service:<10 K/cumm MPV Not Measured 9.1 - 12.3 fL [facility] RBC 2.87(L) 4.30 - 5.80 M/cumm [facility] MCV 89.2 81.3 - 96.4 fL [facility] MCH 30.3 27.1 - 33.3 pg [facility] MCHC 34.0 32.3 - 35.7 g/dL [facility] RDW CV 17.3(H) 11.1 - 14.9 % [facility] RDW SD 53.8(H) 35.7 - 48.1 fL [facility] NRBC abs 3.44(H) 0.00 - 0.01 K/cumm [facility] Blood 05/24/2025 8:22 PM CDT 05/24/2025 8:44 PM CDT Dimple Bailey MD PhD LAB BLOOD ORDERABLES Fi nal Result [facility] Department [place] [address] * (ABNORMAL) Manual Differential (05/24/2025 8:22 PM CDT) Differential Manual Cells Counted 81 [facility] Neutrophil abs 0.48(C) 1.50 - 6.50 K/cumm [facility] Comment:BMT patient, result not critical Lymphocyte abs 1.27 0.80 - 3.30 K/cumm [facility] Monocyte abs 0.02(L) 0.20 - 0.80 K/cumm [facility] Eosinophil abs 0.02 0.00 - 0.50 K/cumm [facility] Basophil abs 0.12(H) 0.00 - 0.10 K/cumm [facility] Neutrophil pct 24.0 % [facility] Comment: Interpretive Data Percent cell count reference ranges are not reported, since discordance with absolute values may lead to misinterpretation of CBC data. Current Interpretive Data was last revised on 2018. Lymphocyte pct 60.0 % [facility] Comment: Interpretive Data Percent cell count reference ranges are not reported, since discordance with absolute values may lead to misinterpretation of CBC data. Current Interpretive Data was last revised on 2018. Monocyte pct 1.0 % [facility] Comment: Interpretive Data Percent cell count reference ranges are not reported, since discordance with absolute values may lead to misinterpretation of CBC data. Current Interpretive Data was last revised on 2018. Eosinophil pct 1.0 % [facility] Comment: Interpretive Data Percent cell count reference ranges are not reported, since discordance with absolute values may lead to misinterpretation of CBC data. Current Interpretive Data was last revised on 2018. Basophil pct 6.0 % [facility] Comment: Interpretive Data Percent cell count reference ranges are not reported, since discordance with absolute values may lead to misinterpretation of CBC data. Current Interpretive Data was last revised on 2018. Blast pct 5.0(C) 0.0 - 0.0 [facility] Comment:Critical value greene d within last 30 days. Variant lymph pct 3.0(H) 0.0 - 0.0 % [facility] Blood 05/24/2025 8:22 PM CDT 05/24/2025 8:48 PM CDT Dimple Bailey MD PhD LAB BLOOD ORDERABLES Fi nal Result [facility] [place] [address] * (ABNORMAL) Uric acid (05/24/2025 8:22 PM CDT) Uric acid 2.7(L) 3.0 - 8.0 mg/dL Blood 05/24/2025 8:22 PM CDT 05/24/2025 8:45 PM CDT Dimple Bailey MD PhD LAB BLOOD ORDERABLES Fi nal Result Performing Organization Address City/[facility] Co de Phone Number [facility] [place] [address] * Phosphorus (05/24/2025 8:22 PM CDT) Phosphorus, pl 3.5 2.3 - 4.5 mg/dL Blood 05/24/2025 8:22 PM CDT 05/24/2025 8:45 PM CDT Dimple Bailey MD PhD LAB BLOOD ORDERABLES Fi nal Result Performing Organization Address City/[facility] Co de Phone Number [facility] [place] [address] * Magnesium (05/24/2025 8:22 PM CDT) Magnesium 1.8 1.4 - 2.5 mg/dL Blood 05/24/2025 8:22 PM CDT 05/24/2025 8:45 PM CDT Dimple Bailey MD PhD LAB BLOOD ORDERABLES Fi nal Result Performing Organization Address City/[facility] Co de Phone Number [facility] Department [place] [address] * (ABNORMAL) Lactate dehydrogenase (LD) (05/24/2025 8:22 PM CDT) [facility] Lactate dehydrogenase (LDH) 436(H) 100 - 250 Units/L Blood 05/24/2025 8:22 PM CDT 05/24/2025 8:45 PM CDT Dimple Bailey MD PhD LAB BLOOD ORDERABLES Fi nal Result Performing Organization Address [facility] Co de Phone Number [facility] [place] [address] * (ABNORMAL) Creatine kinase (CK), total (05/24/2025 8:22 PM CDT) [facility] CK 34(L) 40 - 300 Units/L Blood 05/24/2025 8:22 PM CDT 05/24/2025 8:45 PM CDT Dimple Bailey MD PhD LAB BLOOD ORDERABLES Fi nal Result Performing Organization Address City/[facility] Co de Phone Number [facility] [place] [address] * (ABNORMAL) Comprehensive metabolic panel (05/24/2025 8:22 PM CDT) [facility] Sodium 139 135 - 145 mmol/L Potassium, pl 3.9 3.3 - 4.9 mmol/L [facility] Chloride 104 97 - 110 mmol/L [facility] CO2 29 22 - 32 mmol/L [facility] Anion gap 6 2 - 15 mmol/L [facility] BUN 12 6 - 25 mg/dL [facility] Creatinine 0.72(L) 0.80 - 1.30 mg/dL [facility] Glucose 82 70 - 199 mg/dL [facility] Comment: Interpretive Data Fasting glucose >/= 126 [...] interpretive data was last revised 2022. Calcium 8.4(L) 8.5 - 10.3 mg/dL [facility] Bilirubin, total 0.5 0.1 - 1.2 mg/dL [facility] Protein, pl 5.6(L) 6.5 - 8.5 g/dL [facility] Albumin 3.2(L) 3.5 - 5.0 g/dL [facility] Alk phos 59 40 - 130 Units/L [facility] ALT 44 7 - 55 Units/L [facility] AST 30 10 - 50 Units/L [facility] Blood 05/24/2025 8:22 PM CDT 05/24/2025 8:45 PM CDT us Dimple Bailey MD PhD LAB BLOOD ORDERABLES Fi nal Result [facility] Department [place] [address] * HLA Hematopoietic Stem Cell Typing Report (05/24/2025 10:19 AM CDT) us Erika Chandler DO LAB BLOOD ORDERABLES Final Resul t * (ABNORMAL) Immature platelet fraction (05/24/2025 12:33 AM CDT) IPF 29.3(H) 1.6 - 10.1 % Blood 05/24/2025 12:3 3 AM CDT 05/24/2025 4:59 AM CDT us Sandy Poornima Kt [employer] PRINCIPAL LAB BLOOD ORDERABLES Final R esult Performing Organization Address City/[facility] Co de Phone Number [facility] Department [place] [address] * eGFR (05/24/2025 12:33 AM CDT) eGFR >90 >=60 mL/min/1. 73 [...] of Race in Diagnosing Kidney Disease, JASN 2020). The CKD-EPI equation should not be used for patients with unstable renal function and has not been validated in children and those over 70. Current interpretive data was last reviewed 2021. Blood 05/24/2025 12:3 3 AM CDT 05/24/2025 12:59 AM CDT us Erika Chandler DO LAB BLOOD ORDERABLES Final Resul t Performing Organization Address [facility]/ZIP Co de Phone Number [facility] Department [place] [address] * Senior staff review (05/24/2025 12:33 AM CDT) Pathologist [facility] Senior Staff Review Specimen Blood Senior Staff Review Review Done [facility] Comment:Reviewed by senior bishop sparrow.05/24/2025 07:25:41 CDT by chris mcintosh (mls). Blood 05/24/2025 12:3 3 AM CDT 05/24/2025 4:59 AM CDT us Tania Lott MD PhD LAB BLOOD ORDERABLES Fin al Result [facility] Department [place] [address] * (ABNORMAL) CBC with auto differential (05/24/2025 12:33 AM CDT) Pathologist [facility] WBC 2.37(L) 3.80 - 9.90 K/cumm Hgb 8.5(L) 13.0 - 17.5 g/dL [facility] Hct 25.2(L) 38.9 - 50.3 % [facility] Plt 36(C) 150 - 400 K/cumm [facility] Comment:Platelet count confi rmed by additional testing. Critical platelet count threshold determined by patient location: Outpatient:<50 K/cumm , Inpatient adults:<20 K/cumm , Inpatient pediatric:<25 K/cumm, BMT service:<10 K/cumm MPV Not Measured 9.1 - 12.3 fL [facility] RBC 2.81(L) 4.30 - 5.80 M/cumm [facility] MCV 89.7 81.3 - 96.4 fL [facility] MCH 30.2 27.1 - 33.3 pg [facility] MCHC 33.7 32.3 - 35.7 g/dL [facility] RDW CV 17.6(H) 11.1 - 14.9 % [facility] RDW SD 54.6(H) 35.7 - 48.1 fL [facility] NRBC abs 1.92(H) 0.00 - 0.01 K/cumm [facility] Morphologic Screen Results confirmed by manual morphology review. [facility] Blood 05/24/2025 12:3 3 AM CDT 05/24/2025 4:59 AM CDT us Sandy Meraz NP LAB BLOOD ORDERABLES Edited Result - Final [facility] Department [place] [address] * (ABNORMAL) Manual Differential (05/24/2025 12:33 AM CDT) Differential Manual Cells Counted 104 [facility] Neutrophil abs 0.87(L) 1.50 - 6.50 K/cumm [facility] Lymphocyte abs 1.35 0.80 - 3.30 K/cumm [facility] Monocyte abs 0.05(L) 0.20 - 0.80 K/cumm [facility] Eosinophil abs 0.02 0.00 - 0.50 K/cumm [facility] Basophil abs 0.05 0.00 - 0.10 K/cumm [facility] Neutrophil pct 36.5 % [facility] Comment: Interpretive Data Percent cell count reference ranges are not reported, since discordance with absolute values may lead to misinterpretation of CBC data. Current Interpretive Data was last revised on 2018. Lymphocyte pct 56.8 % [facility] Comment: Interpretive Data Percent cell count reference ranges are not reported, since discordance with absolute values may lead to misinterpretation of CBC data. Current Interpretive Data was last revised on 2018. Monocyte pct 1.9 % [facility] Comment: Interpretive Data Percent cell count reference ranges are not reported, since discordance with absolute values may lead to misinterpretation of CBC data. Current Interpretive Data was last revised on 2018. Eosinophil pct 1.0 % [facility] Comment: Interpretive Data Percent cell count reference ranges are not reported, since discordance with absolute values may lead to misinterpretation of CBC data. Current Interpretive Data was last revised on 2018. Basophil pct 1.9 % [facility] Comment: Interpretive Data Percent cell count reference ranges are not reported, since discordance with absolute values may lead to misinterpretation of CBC data. Current Interpretive Data was last revised on 2018. Blast pct 1.9(C) 0.0 - 0.0 [facility] Comment:Critical value greene d within last 30 days. Smudge cells, qual Present(A) [facility] RBC morphology Normal [facility] Blood 05/24/2025 12:3 3 AM CDT 05/24/2025 4:59 AM CDT Sandy Meraz NP LAB BLOOD ORDERABLES Edited Result - Final Performing Organization Address [facility] Co de Phone Number [facility] [place] [address] * aPTT (05/24/2025 12:33 AM CDT) aPTT 27 26 - 38 sec Comment: Interpretive Data Heparin therapeutic range: 66.0 - 100.0 seconds. Range based on correlation with therapeutic heparin activity range of 0.3 - 0.7 Units/mL. Current interpretive data was last revised on 2023. Blood 05/24/2025 12:3 3 AM CDT 05/24/2025 1:27 AM CDT Aleksandr Trinidad MD LAB BLOOD ORDERABLES Izzy l Result Performing Organization Address [facility] de Phone Number [facility] [place] [address] * Type and screen (05/24/2025 12:33 AM CDT) ABO Rh B Positive Benjy, indirect Negative [facility] Blood 05/24/2025 12:3 3 AM CDT 05/24/2025 12:58 AM CDT Narrative [facility] - 05/24/2025 1:52 AM CDT Has the patient had Daratumumab or Isatuximab in the past 6 months?->Unknown Erika Chandler DO LAB BLOOD BANK TEST ORDERABLES F inal Result Performing Organization Address [facility] Co de Phone Number [facility] [place] [address] * (ABNORMAL) Uric acid (05/24/2025 12:33 AM CDT) Pathologist [facility] Uric acid 2.5(L) 3.0 - 8.0 mg/dL Blood 05/24/2025 12:3 3 AM CDT 05/24/2025 12:59 AM CDT us Tania Lott MD PhD LAB BLOOD ORDERABLES Fin al Result Performing Organization Address [facility] Co de Phone Number [facility] Department [place] [address] * Phosphorus (05/24/2025 12:33 AM CDT) Pathologist [facility] Phosphorus, pl 3.3 2.3 - 4.5 mg/dL Blood 05/24/2025 12:3 3 AM CDT 05/24/2025 12:59 AM CDT us Tania Lott MD PhD LAB BLOOD ORDERABLES Fin al Result Performing Organization Address [facility] Co de Phone Number [facility] Department [place] [address] * Magnesium (05/24/2025 12:33 AM CDT) [facility] Magnesium 1.7 1.4 - 2.5 mg/dL Blood 05/24/2025 12:3 3 AM CDT 05/24/2025 12:59 AM CDT us Sandy Meraz [employer] LAB BLOOD ORDERABLES Final R esult Performing Organization Address [facility] Co de Phone Number [facility] [place] [address] * (ABNORMAL) Lactate dehydrogenase (LD) (05/24/2025 12:33 AM CDT) [facility] Lactate dehydrogenase (LDH) 491(H) 100 - 250 Units/L Blood 05/24/2025 12:3 3 AM CDT 05/24/2025 12:59 AM CDT us Tania Lott MD PhD LAB BLOOD ORDERABLES Fin al Result Performing Organization Address City/[facility]/ZIP Co de Phone Number [facility] Department [place] [address] * (ABNORMAL) Creatine kinase (CK), total (05/24/2025 12:33 AM CDT) Pathologist [facility] CK 30(L) 40 - 300 Units/L Blood 05/24/2025 12:3 3 AM CDT 05/24/2025 12:59 AM CDT Dimple Bailey MD PhD LAB BLOOD ORDERABLES Fi nal Result Performing Organization Address [facility] Co de Phone Number [facility] Department [place] [address] * (ABNORMAL) Comprehensive metabolic panel (05/24/2025 12:33 AM CDT) [facility] [facility] Sodium 139 135 - 145 mmol/L Potassium, pl 3.6 3.3 - 4.9 mmol/L [facility] Chloride 103 97 - 110 mmol/L [facility] CO2 30 22 - 32 mmol/L [facility] Anion gap 6 2 - 15 mmol/L [facility] BUN 12 6 - 25 mg/dL [facility] Creatinine 0.75(L) 0.80 - 1.30 mg/dL [facility] Glucose 110 70 - 199 mg/dL [facility] Comment: Interpretive Data Fasting glucose >/= 126 [...] interpretive data was last revised 2022. Calcium 8.9 8.5 - 10.3 mg/dL [facility] Bilirubin, total 0.6 0.1 - 1.2 mg/dL [facility] Protein, pl 5.7(L) 6.5 - 8.5 g/dL [facility] Albumin 3.3(L) 3.5 - 5.0 g/dL [facility] Alk phos 64 40 - 130 Units/L [facility] ALT 43 7 - 55 Units/L [facility] AST 27 10 - 50 Units/L [facility] Blood 05/24/2025 12:3 3 AM CDT 05/24/2025 12:59 AM CDT Narrative [facility] - 05/24/2025 1:30 AM CDT Saturday and only. Morning draw. us Erika Chandler DO LAB BLOOD ORDERABLES Final Resul t Performing Organization Address City/[facility]/ZIP Co de Phone Number [facility] Department [place] [address] * (ABNORMAL) Immature platelet fraction (05/23/2025 12:45 AM CDT) [facility] IPF 27.5(H) 1.6 - 10.1 % Blood 05/23/2025 12:4 5 AM CDT 05/23/2025 1:22 AM CDT us Sandy Meraz [employer] LAB BLOOD ORDERABLES Final R esult [facility] Department [place] [address] * eGFR (05/23/2025 12:45 AM CDT) [facility] eGFR >90 >=60 mL/min/1. 73 m2 Comment: [...] interpretive data was last reviewed 2021. Blood 05/23/2025 12:4 5 AM CDT 05/23/2025 1:20 AM CDT Tania Lott MD PhD LAB BLOOD ORDERABLES Fin al Result [facility] Department [place] [address] * (ABNORMAL) Differential, auto (05/23/2025 12:45 AM CDT) Neutrophil abs 0.88(L) 1.50 - 6.50 K/cumm Imm gran abs 0.02 0.00 - 0.10 K/cumm [facility] Lymphocyte abs 1.12 0.80 - 3.30 K/cumm [facility] Monocyte abs 0.19(L) 0.20 - 0.80 K/cumm [facility] Eosinophil abs 0.06 0.00 - 0.50 K/cumm [facility] Basophil abs 0.00 0.00 - 0.10 K/cumm [facility] Neutrophil pct 38.8 % [facility] Comment: Interpretive Data Percent cell count reference ranges are not reported, since discordance with absolute values may lead to misinterpretation of CBC data. Current Interpretive Data was last revised on 2018. Imm gran pct 0.9 % [facility] Comment: Interpretive Data Percent cell count reference ranges are not reported, since discordance with absolute values may lead to misinterpretation of CBC data. Current Interpretive Data was last revised on 2018. Lymphocyte pct 49.3 % [facility] Comment: Interpretive Data Percent cell count reference ranges are not reported, since discordance with absolute values may lead to misinterpretation of CBC data. Current Interpretive Data was last revised on 2018. Monocyte pct 8.4 % [facility] Comment: Interpretive Data Percent cell count reference ranges are not reported, since discordance with absolute values may lead to misinterpretation of CBC data. Current Interpretive Data was last revised on 2018. Eosinophil pct 2.6 % [facility] Comment: Interpretive Data Percent cell count reference ranges are not reported, since discordance with absolute values may lead to misinterpretation of CBC data. Current Interpretive Data was last revised on 2018. Basophil pct 0.0 % [facility] Comment: Interpretive Data Percent cell count reference ranges are not reported, since discordance with absolute values may lead to misinterpretation of CBC data. Current Interpretive Data was last revised on 2018. Blood 05/23/2025 12:4 5 AM CDT 05/23/2025 1:19 AM CDT us Sandy Meraz NP LAB BLOOD ORDERABLES Final R esult [facility] Department [place] [address] * (ABNORMAL) CBC with auto differential (05/23/2025 12:45 AM CDT) WBC 2.27(L) 3.80 - 9.90 K/cumm Hgb 8.6(L) 13.0 - 17.5 g/dL [facility] Hct 25.0(L) 38.9 - 50.3 % [facility] Plt 33(C) 150 - 400 K/cumm [facility] Comment:Platelet count confi rmed by additional testing. Critical platelet count threshold determined by patient location: Outpatient:<50 K/cumm , Inpatient adults:<20 K/cumm , Inpatient pediatric:<25 K/cumm, BMT service:<10 K/cumm MPV Not Measured 9.1 - 12.3 fL [facility] RBC 2.86(L) 4.30 - 5.80 M/cumm [facility] MCV 87.4 81.3 - 96.4 fL [facility] MCH 30.1 27.1 - 33.3 pg [facility] MCHC 34.4 32.3 - 35.7 g/dL [facility] RDW CV 17.7(H) 11.1 - 14.9 % [facility] RDW SD 52.5(H) 35.7 - 48.1 fL [facility] NRBC abs 1.14(H) 0.00 - 0.01 K/cumm [facility] Blood 05/23/2025 12:4 5 AM CDT 05/23/2025 1:19 AM CDT us Sandy Meraz [employer] LAB BLOOD ORDERABLES Final R esult [facility] [place] [address] * (ABNORMAL) Uric acid (05/23/2025 12:45 AM CDT) Uric acid 2.6(L) 3.0 - 8.0 mg/dL Blood 05/23/2025 12:4 5 AM CDT 05/23/2025 1:20 AM CDT us Tania Lott MD PhD LAB BLOOD ORDERABLES Fin al Result [facility] [place] [address] * Phosphorus (05/23/2025 12:45 AM CDT) Phosphorus, pl 3.1 2.3 - 4.5 mg/dL Blood 05/23/2025 12:4 5 AM CDT 05/23/2025 1:20 AM CDT Tania Lott MD PhD LAB BLOOD ORDERABLES Fin al Result Performing Organization Address [facility] de Phone Number [facility] [place] [address] * Magnesium (05/23/2025 12:45 AM CDT) [facility] Magnesium 1.7 1.4 - 2.5 mg/dL Blood 05/23/2025 12:4 5 AM CDT 05/23/2025 1:20 AM CDT us Sandy Meraz [employer] LAB BLOOD ORDERABLES Final R esult Performing Organization Address [facility] de Phone Number [facility] [place] [address] * (ABNORMAL) Lactate dehydrogenase (LD) (05/23/2025 12:45 AM CDT) [facility] Lactate dehydrogenase (LDH) 502(H) 100 - 250 Units/L Blood 05/23/2025 12:4 5 AM CDT 05/23/2025 1:20 AM CDT Tania Lott MD PhD LAB BLOOD ORDERABLES Fin al Result Performing Organization Address [facility] de Phone Number [facility] [place] [address] * (ABNORMAL) Basic metabolic panel (05/23/2025 12:45 AM CDT) [facility] Sodium 139 135 - 145 mmol/L Potassium, pl 4.1 3.3 - 4.9 mmol/L [facility] Chloride 104 97 - 110 mmol/L [facility] CO2 28 22 - 32 mmol/L [facility] Anion gap 7 2 - 15 mmol/L [facility] BUN 12 6 - 25 mg/dL [facility] Creatinine 0.73(L) 0.80 - 1.30 mg/dL [facility] Glucose 85 70 - 199 mg/dL [facility] Comment: Interpretive Data Fasting glucose >/= 126 [...] interpretive data was last revised 2022. Calcium 8.3(L) 8.5 - 10.3 mg/dL [facility] Blood 05/23/2025 12:4 5 AM CDT 05/23/2025 1:20 AM CDT us Tania Lott MD PhD LAB BLOOD ORDERABLES Fin al Result [facility] [place] [address] * POCT glucose (05/22/2025 1:38 PM CDT) Glucose, POC 125 70 - 199 mg/dL Blood 05/22/2025 1:38 PM CDT 05/22/2025 1:38 PM CDT us Tania Lott MD PhD LAB POCT ORDERABLES - DE VICE Final Result Performing Organization Address City/[facility]/ZIP Co de Phone Number [facility] [place] [address] * POCT glucose (05/22/2025 8:22 AM CDT) Glucose, POC 142 70 - 199 mg/dL Blood 05/22/2025 8:22 AM CDT 05/22/2025 8:22 AM CDT us Tania Lott MD PhD LAB POCT ORDERABLES - DE VICE Final Result Performing Organization Address [facility] Co de Phone Number [facility] [place], [place] [id number] * Transfuse RBC (05/22/2025 6:02 AM CDT) Blood Tania Lott MD PhD BLOOD TRANSFUSION ORDERA BLES Final Result Performing Organization Address [facility] Co de Phone Number [facility] [place] [address] * Prepare RBC: 1 Units (05/22/2025 3:30 AM CDT) [facility] Product code [id number] Unit Number [id number] Y [facility] Product Blood Type BPOS [facility] Dispense Status PRESUMED TRANSFUSED [facility] Blood Venous blood specimen / Unknown 05/22/2025 3:30 AM CDT 05/22/2025 3:29 AM CDT Narrative [facility] - 05/22/2025 4:01 PM CDT Are special requirements needed? (All products are leukoreduced and CMV- safe)- >Yes Date required:-[id number] Special Req 1:-Irradiated LRRBC # of [id number] Reasons:-BMT, Hgb <8 g/dL} us Tania Lott MD PhD BLOOD BANK PRODUCT ORDER BIANKA Final Result Performing Organization Address City/[facility]/ZIP Co de Phone Number [facility] [place] [address] * (ABNORMAL) Immature platelet fraction (05/22/2025 12:46 AM CDT) Pathologist [facility] IPF 26.9(H) 1.6 - 10.1 % Blood 05/22/2025 12:4 6 AM CDT 05/22/2025 1:01 AM CDT us Sandy Meraz [employer] LAB BLOOD ORDERABLES Final R esult Performing Organization Address [facility] Co de Phone Number [facility] Department [place] [address] * eGFR (05/22/2025 12:46 AM CDT) [facility] eGFR >90 >=60 mL/min/1. 73 m2 Comment: [...] of Race in Diagnosing Kidney Disease, JASN 2020). The CKD-EPI equation should not be used for patients with unstable renal function and has not been validated in children and those over 70. Current interpretive data was last reviewed 2021. Blood 05/22/2025 12:4 6 AM CDT 05/22/2025 12:56 AM CDT us Tania Lott MD PhD LAB BLOOD ORDERABLES Fin al Result Performing Organization Address City/[facility]/ZIP Co de Phone Number [facility] Department [place] [address] * (ABNORMAL) Differential, auto (05/22/2025 12:46 AM CDT) Neutrophil abs 0.49(C) 1.50 - 6.50 K/cumm Comment:BMT patient, result not critical Imm gran abs 0.01 0.00 - 0.10 K/cumm [facility] Lymphocyte abs 1.05 0.80 - 3.30 K/cumm [facility] Monocyte abs 0.13(L) 0.20 - 0.80 K/cumm [facility] Eosinophil abs 0.02 0.00 - 0.50 K/cumm [facility] Basophil abs 0.00 0.00 - 0.10 K/cumm [facility] Neutrophil pct 28.8 % [facility] Comment: Interpretive Data Percent cell count reference ranges are not reported, since discordance with absolute values may lead to misinterpretation of CBC data. Current Interpretive Data was last revised on 2018. Imm gran pct 0.6 % [facility] Comment: Interpretive Data Percent cell count reference ranges are not reported, since discordance with absolute values may lead to misinterpretation of CBC data. Current Interpretive Data was last revised on 2018. Lymphocyte pct 61.8 % [facility] Comment: Interpretive Data Percent cell count reference ranges are not reported, since discordance with absolute values may lead to misinterpretation of CBC data. Current Interpretive Data was last revised on 2018. Monocyte pct 7.6 % [facility] Comment: Interpretive Data Percent cell count reference ranges are not reported, since discordance with absolute values may lead to misinterpretation of CBC data. Current Interpretive Data was last revised on 2018. Eosinophil pct 1.2 % [facility] Comment: Interpretive Data Percent cell count reference ranges are not reported, since discordance with absolute values may lead to misinterpretation of CBC data. Current Interpretive Data was last revised on 2018. Basophil pct 0.0 % [facility] Comment: Interpretive Data Percent cell count reference ranges are not reported, since discordance with absolute values may lead to misinterpretation of CBC data. Current Interpretive Data was last revised on 2018. Blood 05/22/2025 12:4 6 AM CDT 05/22/2025 12:56 AM CDT Sandy Meraz NP LAB BLOOD ORDERABLES Final R esult [facility] Department [place] [address] * (ABNORMAL) CBC with auto differential (05/22/2025 12:46 AM CDT) [facility] Signature WBC 1.71(L) 3.80 - 9.90 K/cumm Hgb 7.5(L) 13.0 - 17.5 g/dL [facility] Hct 22.8(L) 38.9 - 50.3 % [facility] Plt 39(C) 150 - 400 K/cumm [facility] Comment:Platelet count confi rmed by additional testing. Critical platelet count threshold determined by patient location: Outpatient:<50 K/cumm , Inpatient adults:<20 K/cumm , Inpatient pediatric:<25 K/cumm, BMT service:<10 K/cumm MPV Not Measured 9.1 - 12.3 fL [facility] RBC 2.51(L) 4.30 - 5.80 M/cumm [facility] MCV 90.8 81.3 - 96.4 fL [facility] MCH 29.9 27.1 - 33.3 pg [facility] MCHC 32.9 32.3 - 35.7 g/dL [facility] RDW CV 17.7(H) 11.1 - 14.9 % [facility] RDW SD 55.6(H) 35.7 - 48.1 fL [facility] NRBC abs 0.44(H) 0.00 - 0.01 K/cumm [facility] Blood 05/22/2025 12:4 6 AM CDT 05/22/2025 12:56 AM CDT us Sandy Meraz NP LAB BLOOD ORDERABLES Final R esult [facility] Department [place] [address] * (ABNORMAL) Uric acid (05/22/2025 12:46 AM CDT) Uric acid 2.5(L) 3.0 - 8.0 mg/dL Blood 05/22/2025 12:4 6 AM CDT 05/22/2025 12:56 AM CDT us Tania Lott MD PhD LAB BLOOD ORDERABLES Fin al Result Performing Organization Address City/[facility] Co de Phone Number [facility] [place] [address] * Phosphorus (05/22/2025 12:46 AM CDT) Pathologist [facility] Phosphorus, pl 2.9 2.3 - 4.5 mg/dL Blood 05/22/2025 12:4 6 AM CDT 05/22/2025 12:56 AM CDT us Tania Lott MD PhD LAB BLOOD ORDERABLES Fin al Result Performing Organization Address [facility] Co de Phone Number [facility] [place] [address] * Magnesium (05/22/2025 12:46 AM CDT) Pathologist [facility] Magnesium 1.8 1.4 - 2.5 mg/dL Blood 05/22/2025 12:4 6 AM CDT 05/22/2025 12:56 AM CDT us Sandy Meraz [employer] LAB BLOOD ORDERABLES Final R esult Performing Organization Address [facility] Co de Phone Number [facility] [place] [address] * (ABNORMAL) Lactate dehydrogenase (LD) (05/22/2025 12:46 AM CDT) Lactate dehydrogenase (LDH) 551(H) 100 - 250 Units/L Blood 05/22/2025 12:4 6 AM CDT 05/22/2025 12:56 AM CDT us Tania Lott MD PhD LAB BLOOD ORDERABLES Fin al Result Performing Organization Address [facility] Co de Phone Number [facility] [place] [address] * (ABNORMAL) Hepatic function panel (05/22/2025 12:46 AM CDT) Bilirubin, total 0.5 0.1 - 1.2 mg/dL Bilirubin, direct 0.2 0.1 - 0.3 mg/dL [facility] Protein, pl 5.5(L) 6.5 - 8.5 g/dL [facility] Albumin 3.3(L) 3.5 - 5.0 g/dL [facility] Alk phos 56 40 - 130 Units/L [facility] ALT 39 7 - 55 Units/L [facility] AST 26 10 - 50 Units/L [facility] Blood 05/22/2025 12:4 6 AM CDT 05/22/2025 12:56 AM CDT us Sandy Meraz [employer] LAB BLOOD ORDERABLES Final R esult Performing Organization Address [facility] de Phone Number [facility] Department [place] [address] * (ABNORMAL) Basic metabolic panel (05/22/2025 12:46 AM CDT) Sodium 141 135 - 145 mmol/L Potassium, pl 3.7 3.3 - 4.9 mmol/L [facility] Chloride 106 97 - 110 mmol/L [facility] CO2 28 22 - 32 mmol/L [facility] Anion gap 7 2 - 15 mmol/L [facility] BUN 16 6 - 25 mg/dL [facility] Creatinine 0.77(L) 0.80 - 1.30 mg/dL [facility] Glucose 106 70 - 199 mg/dL [facility] Comment: Interpretive Data Fasting glucose >/= 126 [...] interpretive data was last revised 2022. Calcium 8.8 8.5 - 10.3 mg/dL [facility] Blood 05/22/2025 12:4 6 AM CDT 05/22/2025 12:56 AM CDT Tania Lott MD PhD LAB BLOOD ORDERABLES Fin al Result Performing Organization Address [facility] Co de Phone Number [facility] Department [place] [address] * POCT glucose (05/21/2025 7:26 PM CDT) Glucose, POC 119 70 - 199 mg/dL Blood 05/21/2025 7:26 PM CDT 05/21/2025 7:26 PM CDT Tania Lott MD PhD LAB POCT ORDERABLES - DE VICE Final Result Performing Organization Address City/[facility]/ZIP Co de Phone Number [facility] Department [place] [address] * POCT glucose (05/21/2025 2:23 PM CDT) Glucose, POC 142 70 - 199 mg/dL Blood 05/21/2025 2:23 PM CDT 05/21/2025 2:23 PM CDT Tania Lott MD PhD LAB POCT ORDERABLES - DE VICE Final Result Performing Organization Address City/[facility]/ZIP Co de Phone Number ANGELA DUNAWAY [facility] Department [place] [address] * POCT glucose (05/21/2025 9:45 AM CDT) Glucose, POC 100 70 - 199 mg/dL Blood 05/21/2025 9:45 AM CDT 05/21/2025 9:45 AM CDT us Tania Lott MD PhD LAB POCT ORDERABLES - DE VICE Final Result Performing Organization Address [facility] de Phone Number [facility] [place] [address] * MRI Brain W WO Contrast (05/21/2025 9:09 AM CDT) Anatomical Region Laterality Modality Head and Neck N/A Magnetic Resonan ce 05/21/2025 10:2 6 AM CDT Impressions 05/21/2025 12:18 PM CDT 1. No MR evidence of intracranial disease. 2. Left occipital lobe encephalomalacia and ex vacuo dilation of the left occipital horn of the lateral ventricle, suggestive of chronic injury. Dictated by: Sade Garvey M.D. The radiology attending physician has personally reviewed this study, and had reviewed and/or edited this written report and agrees with it. Electronically signed by: Amish Kline M.D. 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 Evaluating for CARE INFORMATION ASSOCIATE involvement. TECHNIQUE: Multiplanar multi-weighted MRI of the brain and brainstem was performed without and with intravenous contrast using the general brain protocol. Contrast information: 16 mL Gadoterate Meglumine IV COMPARISON: None Available. FINDINGS: Scattered small foci of T2 prolongation in the periventricular and subcortical white matter, likely on the basis of chronic small vessel ischemic change. Left occipital lobe encephalomalacia with areas of susceptibility artifact and ex vacuo dilation of the left occipital horn of the lateral ventricle. The other ventricles are normal in size and position without evidence of hydrocephalus. The scalp and calvarium are normal. The superior sagittal sinus demonstrates normal venous flow. The corpus callosum is normal in shape and signal intensity. The posterior fossa is unremarkable. The pituitary and sella are normal. The brainstem and craniocervical junction are unremarkable. Diffusion weighted images reveal no hyperintensities to suggest acute cerebral infarction. The paranasal sinuses are normal. The visualized portions of the mastoids are unremarkable. The orbits appear normal. Normal flow voids are demonstrated in the carotid arteries and basilar artery. There is no abnormal contrast enhancement. 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 Evaluating for C[employer] INFORMATION ASSOCIATE involvement. TECHNIQUE: Multiplanar multi-weighted MRI of the brain and brainstem was performed without and with intravenous contrast using the general brain protocol. Contrast information: 16 mL Gadoterate Meglumine IV COMPARISON: None Available. FINDINGS: Scattered small foci of T2 prolongation in the periventricular and subcortical white matter, likely on the basis of chronic small vessel ischemic change. Left occipital lobe encephalomalacia with areas of susceptibility artifact and ex vacuo dilation of the left occipital horn of the lateral ventricle. The other ventricles are normal in size and position without evidence of hydrocephalus. The scalp and calvarium are normal. The superior sagittal sinus demonstrates normal venous flow. The corpus callosum is normal in shape and signal intensity. The posterior fossa is unremarkable. The pituitary and sella are normal. The brainstem and craniocervical junction are unremarkable. Diffusion weighted images reveal no hyperintensities to suggest acute cerebral infarction. The paranasal sinuses are normal. The visualized portions of the mastoids are unremarkable. The orbits appear normal. Normal flow voids are demonstrated in the carotid arteries and basilar artery. There is no abnormal contrast enhancement. IMPRESSION: 1. No MR evidence of intracranial disease. 2. Left occipital lobe encephalomalacia and ex vacuo dilation of the left occipital horn of the lateral ventricle, suggestive of chronic injury. Dictated by: Sade Garvey M.D. The radiology attending physician has personally reviewed this study, and had reviewed and/or edited this written report and agrees with it. Electronically signed by: Amish Kline M.D. Elisabeth Cortes [employer] IMG MRI PROCEDURES Final Resu lt * Transfuse RBC (05/21/2025 7:31 AM CDT) Blood Tania Lott MD PhD BLOOD TRANSFUSION ORDERA BLES Final Result Performing Organization Address [facility] Co de Phone Number [facility] Department [place] [address] * Prepare RBC: 1 Units (05/21/2025 5:02 AM CDT) Pathologist [facility] Product code [id number] Unit Number [id number] [facility] Product Blood Type BPOS [facility] Dispense Status PRESUMED TRANSFUSED [facility] Blood Venous blood specimen / Unknown 05/21/2025 5:02 AM CDT 05/21/2025 5:02 AM CDT Narrative [facility] - 05/21/2025 8:01 PM CDT Are special requirements needed? (All products are leukoreduced and CMV- safe)- >Yes Date required:-[id number] Special Req 1:-Irradiated LRRBC # of [id number] Reasons:-BMT, Hgb <8 g/dL} Tania Lott MD PhD BLOOD BANK PRODUCT ORDER BIANKA Final Result Performing Organization Address [facility] de Phone Number [facility] [place] [address] * (ABNORMAL) Immature platelet fraction (05/21/2025 4:03 AM CDT) IPF 27.8(H) 1.6 - 10.1 % Blood 05/21/2025 4:03 AM CDT 05/21/2025 4:32 AM CDT us Sandy Meraz [employer] LAB BLOOD ORDERABLES Final R esult Performing Organization Address [facility] Co de Phone Number [facility] Department [place] [address] * eGFR (05/21/2025 4:03 AM CDT) eGFR >90 >=60 mL/min/1. 73 [...] of Race in Diagnosing Kidney Disease, JASN 2020). The CKD-EPI equation should not be used for patients with unstable renal function and has not been validated in children and those over 70. Current interpretive data was last reviewed 2021. Blood 05/21/2025 4:03 AM CDT 05/21/2025 4:29 AM CDT us Tania Lott MD PhD LAB BLOOD ORDERABLES Fin al Result Performing Organization Address City/[facility]/ZIP Co de Phone Number [facility] Department [place] [address] * (ABNORMAL) Differential, auto (05/21/2025 4:03 AM CDT) Pathologist [facility] Neutrophil abs 0.24(C) 1.50 - 6.50 K/cumm Comment:BMT patient, result not critical Imm gran abs 0.02 0.00 - 0.10 K/cumm [facility] Lymphocyte abs 1.03 0.80 - 3.30 K/cumm [facility] Monocyte abs 0.10(L) 0.20 - 0.80 K/cumm [facility] Eosinophil abs 0.07 0.00 - 0.50 K/cumm [facility] Basophil abs 0.01 0.00 - 0.10 K/cumm [facility] Neutrophil pct 16.2 % [facility] Comment: Interpretive Data Percent cell count reference ranges are not reported, since discordance with absolute values may lead to misinterpretation of CBC data. Current Interpretive Data was last revised on 2018. Imm gran pct 1.4 % [facility] Comment: Interpretive Data Percent cell count reference ranges are not reported, since discordance with absolute values may lead to misinterpretation of CBC data. Current Interpretive Data was last revised on 2018. Lymphocyte pct 70.1 % [facility] Comment: Interpretive Data Percent cell count reference ranges are not reported, since discordance with absolute values may lead to misinterpretation of CBC data. Current Interpretive Data was last revised on 2018. Monocyte pct 6.8 % [facility] Comment: Interpretive Data Percent cell count reference ranges are not reported, since discordance with absolute values may lead to misinterpretation of CBC data. Current Interpretive Data was last revised on 2018. Eosinophil pct 4.8 % [facility] Comment: Interpretive Data Percent cell count reference ranges are not reported, since discordance with absolute values may lead to misinterpretation of CBC data. Current Interpretive Data was last revised on 2018. Basophil pct 0.7 % [facility] Comment: Interpretive Data Percent cell count reference ranges are not reported, since discordance with absolute values may lead to misinterpretation of CBC data. Current Interpretive Data was last revised on 2018. Blood 05/21/2025 4:03 AM CDT 05/21/2025 4:29 AM CDT us Sandy Meraz NP LAB BLOOD ORDERABLES Final R esult [facility] Department [place] [address] * (ABNORMAL) CBC with auto differential (05/21/2025 4:03 AM CDT) Pathologist [facility] WBC 1.47(L) 3.80 - 9.90 K/cumm Hgb 7.4(L) 13.0 - 17.5 g/dL [facility] Hct 22.2(L) 38.9 - 50.3 % [facility] Plt 34(C) 150 - 400 K/cumm [facility] Comment:Platelet count confi rmed by additional testing. Critical platelet count threshold determined by patient location: Outpatient:<50 K/cumm , Inpatient adults:<20 K/cumm , Inpatient pediatric:<25 K/cumm, BMT service:<10 K/cumm MPV 13.0(H) 9.1 - 12.3 fL [facility] RBC 2.40(L) 4.30 - 5.80 M/cumm [facility] MCV 92.5 81.3 - 96.4 fL [facility] MCH 30.8 27.1 - 33.3 pg [facility] MCHC 33.3 32.3 - 35.7 g/dL [facility] RDW CV 17.2(H) 11.1 - 14.9 % [facility] RDW SD 55.4(H) 35.7 - 48.1 fL [facility] NRBC abs 0.14(H) 0.00 - 0.01 K/cumm [facility] Blood 05/21/2025 4:03 AM CDT 05/21/2025 4:29 AM CDT us Sandy Meraz NP LAB BLOOD ORDERABLES Final R esult [facility] Department [place] [address] * (ABNORMAL) Uric acid (05/21/2025 4:03 AM CDT) [facility] Uric acid 2.4(L) 3.0 - 8.0 mg/dL Blood 05/21/2025 4:03 AM CDT 05/21/2025 4:29 AM CDT Tania Lott MD PhD LAB BLOOD ORDERABLES Fin al Result Performing Organization Address [facility] de Phone Number [facility] [place] [address] * Phosphorus (05/21/2025 4:03 AM CDT) Phosphorus, pl 3.2 2.3 - 4.5 mg/dL Blood 05/21/2025 4:03 AM CDT 05/21/2025 4:29 AM CDT Tania Lott MD PhD LAB BLOOD ORDERABLES Fin al Result Performing Organization Address [facility] de Phone Number [facility] [place] [address] * Magnesium (05/21/2025 4:03 AM CDT) Magnesium 1.9 1.4 - 2.5 mg/dL Blood 05/21/2025 4:03 AM CDT 05/21/2025 4:29 AM CDT Sandy Meraz [employer] LAB BLOOD ORDERABLES Final R esult Performing Organization Address [facility] de Phone Number [facility] [place] [address] * (ABNORMAL) Lactate dehydrogenase (LD) (05/21/2025 4:03 AM CDT) Lactate dehydrogenase (LDH) 588(H) 100 - 250 Units/L Blood 05/21/2025 4:03 AM CDT 05/21/2025 4:29 AM CDT Tania Lott MD PhD LAB BLOOD ORDERABLES Fin al Result Performing Organization Address [facility] de Phone Number [facility] Department [place] [address] * (ABNORMAL) Hepatic function panel (05/21/2025 4:03 AM CDT) Bilirubin, total 0.7 0.1 - 1.2 mg/dL Bilirubin, direct 0.3 0.1 - 0.3 mg/dL [facility] Protein, pl 5.5(L) 6.5 - 8.5 g/dL [facility] Albumin 3.2(L) 3.5 - 5.0 g/dL [facility] Alk phos 53 40 - 130 Units/L [facility] ALT 38 7 - 55 Units/L [facility] AST 23 10 - 50 Units/L [facility] Blood 05/21/2025 4:03 AM CDT 05/21/2025 4:29 AM CDT Sandy Meraz NP LAB BLOOD ORDERABLES Final R esult Performing Organization Address [facility] de Phone Number [facility] Department [place] [address] * (ABNORMAL) Basic metabolic panel (05/21/2025 4:03 AM CDT) Pathologist [facility] Sodium 138 135 - 145 mmol/L Potassium, pl 3.7 3.3 - 4.9 mmol/L [facility] Chloride 104 97 - 110 mmol/L [facility] CO2 28 22 - 32 mmol/L [facility] Anion gap 6 2 - 15 mmol/L [facility] BUN 14 6 - 25 mg/dL [facility] Creatinine 0.71(L) 0.80 - 1.30 mg/dL [facility] Glucose 86 70 - 199 mg/dL [facility] Comment: Interpretive Data Fasting glucose >/= 126 [...] interpretive data was last revised 2022. Calcium 8.2(L) 8.5 - 10.3 mg/dL [facility] Blood 05/21/2025 4:03 AM CDT 05/21/2025 4:29 AM CDT Tania Lott MD PhD LAB BLOOD ORDERABLES Fin al Result Performing Organization Address [facility]/ZIP Co de Phone Number [facility] [place] [address] * POCT glucose (05/20/2025 7:12 PM CDT) Glucose, POC 109 70 - 199 mg/dL Blood 05/20/2025 7:12 PM CDT 05/20/2025 7:12 PM CDT Tania Lott MD PhD LAB POCT ORDERABLES - DE VICE Final Result Performing Organization Address [facility] Co de Phone Number [facility] [place] [address] * (ABNORMAL) POCT glucose (05/20/2025 1:13 PM CDT) Glucose, POC 200(H) 70 - 199 mg/dL Blood 05/20/2025 1:13 PM CDT 05/20/2025 1:13 PM CDT Tania Lott MD PhD LAB POCT ORDERABLES - DE VICE Final Result Performing Organization Address [facility] Co de Phone Number [facility] Department [place] [address] * POCT glucose (05/20/2025 7:23 AM CDT) Pathologist [facility] Glucose, POC 98 70 - 199 mg/dL Blood 05/20/2025 7:23 AM CDT 05/20/2025 7:23 AM CDT us Tania Lott MD PhD LAB POCT ORDERABLES - DE VICE Final Result Performing Organization Address City/[facility]/ZIP Co de Phone Number [facility] Department [place] [address] * (ABNORMAL) Immature platelet fraction (05/20/2025 2:16 AM CDT) [facility] IPF 25.1(H) 1.6 - 10.1 % Blood 05/20/2025 2:16 AM CDT 05/20/2025 2:38 AM CDT us Sandy Meraz NP LAB BLOOD ORDERABLES Final R esult Performing Organization Address City/[facility]/ZIP Co de Phone Number [facility] Department [place] [address] * eGFR (05/20/2025 2:16 AM CDT) [facility] eGFR >90 >=60 mL/min/1. 73 m2 Comment: [...] of Race in Diagnosing Kidney Disease, JASN 2020). The CKD-EPI equation should not be used for patients with unstable renal function and has not been validated in children and those over 70. Current interpretive data was last reviewed 2021. Blood 05/20/2025 2:16 AM CDT 05/20/2025 2:34 AM CDT Erika Chandler DO LAB BLOOD ORDERABLES Final Resul t [facility] Department [place] [address] * (ABNORMAL) CBC with auto differential (05/20/2025 2:16 AM CDT) WBC 1.31(L) 3.80 - 9.90 K/cumm Hgb 8.2(L) 13.0 - 17.5 g/dL [facility] Hct 24.1(L) 38.9 - 50.3 % [facility] Plt 27(C) 150 - 400 K/cumm [facility] Comment:Platelet count confi rmed by additional testing. Critical platelet count threshold determined by patient location: Outpatient:<50 K/cumm , Inpatient adults:<20 K/cumm , Inpatient pediatric:<25 K/cumm, BMT service:<10 K/cumm MPV Not Measured 9.1 - 12.3 fL [facility] RBC 2.68(L) 4.30 - 5.80 M/cumm [facility] MCV 89.9 81.3 - 96.4 fL [facility] MCH 30.6 27.1 - 33.3 pg [facility] MCHC 34.0 32.3 - 35.7 g/dL [facility] RDW CV 17.5(H) 11.1 - 14.9 % [facility] RDW SD 55.9(H) 35.7 - 48.1 fL [facility] NRBC abs 0.08(H) 0.00 - 0.01 K/cumm [facility] Blood 05/20/2025 2:16 AM CDT 05/20/2025 2:34 AM CDT us Sandy Poornima Kt [employer] LAB BLOOD ORDERABLES Edited Result - Final [facility] Department [place] [address] * (ABNORMAL) Manual Differential (05/20/2025 2:16 AM CDT) Differential Manual Cells Counted 129 [facility] Neutrophil abs 0.11(C) 1.50 - 6.50 K/cumm [facility] Comment:BMT patient, result not critical Lymphocyte abs 1.07 0.80 - 3.30 K/cumm [facility] Monocyte abs 0.02(L) 0.20 - 0.80 K/cumm [facility] Eosinophil abs 0.02 0.00 - 0.50 K/cumm [facility] Basophil abs 0.06 0.00 - 0.10 K/cumm [facility] Neutrophil pct 8.5 % [facility] Comment: Interpretive Data Percent cell count reference ranges are not reported, since discordance with absolute values may lead to misinterpretation of CBC data. Current Interpretive Data was last revised on 2018. Lymphocyte pct 82.0 % [facility] Comment: Interpretive Data Percent cell count reference ranges are not reported, since discordance with absolute values may lead to misinterpretation of CBC data. Current Interpretive Data was last revised on 2018. Monocyte pct 1.6 % [facility] Comment: Interpretive Data Percent cell count reference ranges are not reported, since discordance with absolute values may lead to misinterpretation of CBC data. Current Interpretive Data was last revised on 2018. Eosinophil pct 1.6 % [facility] Comment: Interpretive Data Percent cell count reference ranges are not reported, since discordance with absolute values may lead to misinterpretation of CBC data. Current Interpretive Data was last revised on 2018. Basophil pct 4.7 % [facility] Comment: Interpretive Data Percent cell count reference ranges are not reported, since discordance with absolute values may lead to misinterpretation of CBC data. Current Interpretive Data was last revised on 2018. Blast pct 1.6(C) 0.0 - 0.0 [facility] Comment:Critical value greene d within last 30 days. Blood 05/20/2025 2:16 AM CDT 05/20/2025 2:38 AM CDT Sandy Meraz [employer] LAB BLOOD ORDERABLES Final R esult Performing Organization Address [facility] Co de Phone Number [facility] [place] [address] * Type and screen (05/20/2025 2:16 AM CDT) ABO Rh B Positive Benjy, indirect Negative [facility] Blood 05/20/2025 2:16 AM CDT 05/20/2025 2:45 AM CDT Narrative [facility] - 05/20/2025 3:57 AM CDT Has the patient had Daratumumab or Isatuximab in the past 6 months?->Unknown Erika Chandler DO LAB BLOOD BANK TEST ORDERABLES F inal Result Performing Organization Address [facility] [place] [address] * (ABNORMAL) Uric acid (05/20/2025 2:16 AM CDT) Pathologist [facility] Uric acid 2.3(L) 3.0 - 8.0 mg/dL Blood 05/20/2025 2:16 AM CDT 05/20/2025 2:34 AM CDT Tania Lott MD PhD LAB BLOOD ORDERABLES Fin al Result Performing Organization Address City/[facility] [place] [address] * Phosphorus (05/20/2025 2:16 AM CDT) Phosphorus, pl 2.8 2.3 - 4.5 mg/dL Blood 05/20/2025 2:16 AM CDT 05/20/2025 2:34 AM CDT Tania Lott MD PhD LAB BLOOD ORDERABLES Fin al Result Performing Organization Address [facility] de Phone Number [facility] [place] [address] * Magnesium (05/20/2025 2:16 AM CDT) Magnesium 1.9 1.4 - 2.5 mg/dL Blood 05/20/2025 2:16 AM CDT 05/20/2025 2:34 AM CDT Sandy Meraz [employer] LAB BLOOD ORDERABLES Final R esult Performing Organization Address [facility] de Phone Number [facility] [place] [address] * (ABNORMAL) Lactate dehydrogenase (LD) (05/20/2025 2:16 AM CDT) Lactate dehydrogenase (LDH) 714(H) 100 - 250 Units/L Blood 05/20/2025 2:16 AM CDT 05/20/2025 2:34 AM CDT Tania Lott MD PhD LAB BLOOD ORDERABLES Fin al Result Performing Organization Address [facility] de Phone Number [facility] [place] [address] * Bilirubin, direct (05/20/2025 2:16 AM CDT) Bilirubin, direct 0.3 0.1 - 0.3 mg/dL Blood 05/20/2025 2:16 AM CDT 05/20/2025 2:34 AM CDT us Erika Chandler LAB BLOOD ORDERABLES Final Resul t [facility] Department [place] [address] * (ABNORMAL) Comprehensive metabolic panel (05/20/2025 2:16 AM CDT) Sodium 139 135 - 145 mmol/L Potassium, pl 3.8 3.3 - 4.9 mmol/L [facility] Chloride 105 97 - 110 mmol/L [facility] CO2 28 22 - 32 mmol/L [facility] Anion gap 6 2 - 15 mmol/L [facility] BUN 17 6 - 25 mg/dL [facility] Creatinine 0.72(L) 0.80 - 1.30 mg/dL [facility] Glucose 125 70 - 199 mg/dL [facility] Comment: Interpretive Data Fasting glucose >/= 126 [...] classification and Diagnosis of Diabetes Diabetes Care 202; 46: S19-S40. Current interpretive data was last revised 2022. Calcium 8.6 8.5 - 10.3 mg/dL [facility] Bilirubin, total 0.6 0.1 - 1.2 mg/dL [facility] Protein, pl 5.6(L) 6.5 - 8.5 g/dL [facility] Albumin 3.0(L) 3.5 - 5.0 g/dL [facility] Alk phos 67 40 - 130 Units/L [facility] ALT 36 7 - 55 Units/L [facility] AST 20 10 - 50 Units/L [facility] Blood 05/20/2025 2:16 AM CDT 05/20/2025 2:34 AM CDT Narrative [facility] - 05/20/2025 3:07 AM CDT Saturday and only. Morning draw. Erika Chandler DO LAB BLOOD ORDERABLES Final Resul t Performing Organization Address [facility] de Phone Number [facility] [place] [address] * POCT glucose (05/19/2025 6:48 PM CDT) Glucose, POC 145 70 - 199 mg/dL Blood 05/19/2025 6:48 PM CDT 05/19/2025 6:48 PM CDT us Tania Lott MD PhD LAB POCT ORDERABLES - DE VICE Final Result Performing Organization Address [facility] Phone Number [facility] [place] [address] * POCT glucose (05/19/2025 1:23 PM CDT) Glucose, POC 162 70 - 199 mg/dL Blood 05/19/2025 1:23 PM CDT 05/19/2025 1:23 PM CDT us Tania Lott MD PhD LAB POCT ORDERABLES - DE VICE Final Result Performing Organization Address [facility] de Phone Number [facility] [place] [address] * POCT glucose (05/19/2025 7:23 AM CDT) Glucose, POC 102 70 - 199 mg/dL Blood 05/19/2025 7:23 AM CDT 05/19/2025 7:23 AM CDT us Tania Lott MD PhD LAB POCT ORDERABLES - DE VICE Final Result Performing Organization Address [facility] de Phone Number [facility]A [facility] Department [place] [address] * (ABNORMAL) Immature platelet fraction (05/19/2025 12:54 AM CDT) IPF 24.3(H) 1.6 - 10.1 % Blood 05/19/2025 12:5 4 AM CDT 05/19/2025 1:08 AM CDT us Sandy Meraz [employer] LAB BLOOD ORDERABLES Final R esult Performing Organization Address [facility] de Phone Number [facility] [place] [address] * eGFR (05/19/2025 12:54 AM CDT) eGFR >90 >=60 mL/min/1. 73 [...] of Race in Diagnosing Kidney Disease, JASN 2020). The CKD-EPI equation should not be used for patients with unstable renal function and has not been validated in children and those over 70. Current interpretive data was last reviewed 2021. Blood 05/19/2025 12:5 4 AM CDT 05/19/2025 1:03 AM CDT us Tania Lott MD PhD LAB BLOOD ORDERABLES Fin al Result [facility] Department [place] [address] * (ABNORMAL) CBC with auto differential (05/19/2025 12:54 AM CDT) [facility] WBC 1.33(L) 3.80 - 9.90 K/cumm Hgb 8.1(L) 13.0 - 17.5 g/dL [facility] Hct 23.6(L) 38.9 - 50.3 % [facility] Plt 18(C) 150 - 400 K/cumm [facility] Comment:Platelet count confi rmed by additional testing. Critical platelet count threshold determined by patient location: Outpatient:<50 K/cumm , Inpatient adults:<20 K/cumm , Inpatient pediatric:<25 K/cumm, BMT service:<10 K/cumm MPV Not Measured 9.1 - 12.3 fL [facility] RBC 2.67(L) 4.30 - 5.80 M/cumm [facility] MCV 88.4 81.3 - 96.4 fL [facility] MCH 30.3 27.1 - 33.3 pg [facility] MCHC 34.3 32.3 - 35.7 g/dL [facility] RDW CV 17.9(H) 11.1 - 14.9 % [facility] RDW SD 54.7(H) 35.7 - 48.1 fL [facility] NRBC abs 0.08(H) 0.00 - 0.01 K/cumm [facility] Blood 05/19/2025 12:5 4 AM CDT 05/19/2025 1:04 AM CDT us Sandy Meraz NP LAB BLOOD ORDERABLES Final R esult [facility] Department [place] [address] * (ABNORMAL) Manual Differential (05/19/2025 12:54 AM CDT) [facility] Differential Manual Cells Counted 112 [facility] Neutrophil abs 0.26(C) 1.50 - 6.50 K/cumm [facility] Comment:BMT patient, result not critical Lymphocyte abs 0.96 0.80 - 3.30 K/cumm [facility] Monocyte abs 0.01(L) 0.20 - 0.80 K/cumm [facility] Basophil abs 0.07 0.00 - 0.10 K/cumm [facility] Neutrophil pct 19.6 % [facility] Comment: Interpretive Data Percent cell count reference ranges are not reported, since discordance with absolute values may lead to misinterpretation of CBC data. Current Interpretive Data was last revised on 2018. Lymphocyte pct 72.3 % [facility] Comment: Interpretive Data Percent cell count reference ranges are not reported, since discordance with absolute values may lead to misinterpretation of CBC data. Current Interpretive Data was last revised on 2018. Monocyte pct 0.9 % [facility] Comment: Interpretive Data Percent cell count reference ranges are not reported, since discordance with absolute values may lead to misinterpretation of CBC data. Current Interpretive Data was last revised on 2018. Basophil pct 5.4 % [facility] Comment: Interpretive Data Percent cell count reference ranges are not reported, since discordance with absolute values may lead to misinterpretation of CBC data. Current Interpretive Data was last revised on 2018. Blast pct 1.8(C) 0.0 - 0.0 [facility] Comment:Critical value greene d within last 30 days. Smudge cells, qual Present(A) [facility] RBC morphology Present(A) [facility] Anisocytosis Slight(A) [facility] Macrocytes 3-7/HPF(A) [facility] Platelet estimate Decreased( A) [facility] Blood 05/19/2025 12:5 4 AM CDT 05/19/2025 1:08 AM CDT us Sandy Meraz NP LAB BLOOD ORDERABLES Final R esult [facility] Department [place] [address] * (ABNORMAL) Uric acid (05/19/2025 12:54 AM CDT) Pathologist [facility] Uric acid 2.3(L) 3.0 - 8.0 mg/dL Blood 05/19/2025 12:5 4 AM CDT 05/19/2025 1:03 AM CDT us Tania Lott MD PhD LAB BLOOD ORDERABLES Fin al Result Performing Organization Address City/[facility] Co de Phone Number [facility] Department [place] [address] * Phosphorus (05/19/2025 12:54 AM CDT) Pathologist [facility] Phosphorus, pl 3.2 2.3 - 4.5 mg/dL Blood 05/19/2025 12:5 4 AM CDT 05/19/2025 1:03 AM CDT us Tania Lott MD PhD LAB BLOOD ORDERABLES Fin al Result Performing Organization Address [facility] Co de Phone Number [facility] [place] [address] * Magnesium (05/19/2025 12:54 AM CDT) [facility] Magnesium 1.9 1.4 - 2.5 mg/dL Blood 05/19/2025 12:5 4 AM CDT 05/19/2025 1:03 AM CDT us Sandy Meraz [employer] LAB BLOOD ORDERABLES Final R esult Performing Organization Address [facility] Co de Phone Number [facility] [place] [address] * (ABNORMAL) Lactate dehydrogenase (LD) (05/19/2025 12:54 AM CDT) [facility] Lactate dehydrogenase (LDH) 842(H) 100 - 250 Units/L Blood 05/19/2025 12:5 4 AM CDT 05/19/2025 1:03 AM CDT us Tania Lott MD PhD LAB BLOOD ORDERABLES Fin al Result Performing Organization Address [facility] de Phone Number [facility] [place] [address] * (ABNORMAL) Hepatic function panel (05/19/2025 12:54 AM CDT) Bilirubin, total 0.7 0.1 - 1.2 mg/dL Bilirubin, direct 0.3 0.1 - 0.3 mg/dL [facility] Protein, pl 5.3(L) 6.5 - 8.5 g/dL [facility] Albumin 2.9(L) 3.5 - 5.0 g/dL [facility] Alk phos 64 40 - 130 Units/L [facility] ALT 35 7 - 55 Units/L [facility] AST 24 10 - 50 Units/L [facility] Blood 05/19/2025 12:5 4 AM CDT 05/19/2025 1:03 AM CDT us Sandy Meraz [employer] LAB BLOOD ORDERABLES Final R esult Performing Organization Address [facility] Co de Phone Number [facility] Department [place] [address] * (ABNORMAL) Basic metabolic panel (05/19/2025 12:54 AM CDT) Sodium 139 135 - 145 mmol/L Potassium, pl 4.0 3.3 - 4.9 mmol/L [facility] Chloride 106 97 - 110 mmol/L [facility] CO2 28 22 - 32 mmol/L [facility] Anion gap 5 2 - 15 mmol/L [facility] BUN 15 6 - 25 mg/dL [facility] Creatinine 0.65(L) 0.80 - 1.30 mg/dL [facility] Glucose 115 70 - 199 mg/dL [facility] Comment: Interpretive Data Fasting glucose >/= 126 [...] interpretive data was last revised 2022. Calcium 8.6 8.5 - 10.3 mg/dL [facility] Blood 05/19/2025 12:5 4 AM CDT 05/19/2025 1:03 AM CDT Tania Lott MD PhD LAB BLOOD ORDERABLES Fin al Result Performing Organization Address City/[facility]/ZIP Co de Phone Number [facility] Department [place] [address] * POCT glucose (05/18/2025 5:12 PM CDT) Glucose, POC 111 70 - 199 mg/dL Blood 05/18/2025 5:12 PM CDT 05/18/2025 5:12 PM CDT Tania Lott MD PhD LAB POCT ORDERABLES - DE VICE Final Result Performing Organization Address [facility]/ZIP Co de Phone Number [facility] [place] [address] * Urinalysis reflex to microscopic (05/18/2025 2:39 PM CDT) Color, ur Yellow Yellow Clarity, ur Clear Clear [facility] Specific gravity, ur 1.023 1.003 - 1.030 [facility] pH, urine 6.5 [facility] Comment: Interpretive Data U rine pH is affected by diet, medications, systemic acid-base disturbances, and renal tubular function. pH may affect urinary stone formation. For example, urine pH below 6.0 may help reduce the tendency for calcium phosphate stones and pH greater than 6.0 may reduce the tendency for uric acid stone formation. Source: [facility] Current Interpretive Data was last revised on 2017 Protein, ur ql Trace Negative [facility] Glucose, ur ql Negative Negative [facility] Ketones, ur Negative Negative [facility] Bilirubin, ur Negative Negative [facility] Blood, ur Negative Negative [facility] Urobilinogen, ur <2.0 <2.0 mg/dL [facility] Nitrite, ur Negative Negative [facility] Leukocyte esterase, ur Negative Negative [facility] UA reflex comment Reflex conditions for microscopic UA not met. [facility] Urine 05/18/2025 2:39 PM CDT 05/18/2025 2:47 PM CDT Tania Lott MD PhD LAB URINE ORDERABLES Fin al Result Performing Organization Address [facility] Co de Phone Number [facility] [place] [address] * Urea nitrogen, urine, random (05/18/2025 2:39 PM CDT) Urea nitrogen, ur 847 mg/dL Comment: Interpretive Data No reference range established. Current interpretive data was last revised 2019. Urine 05/18/2025 2:39 PM CDT 05/18/2025 3:09 PM CDT Tania Lott MD PhD LAB URINE ORDERABLES Fin al Result Performing Organization Address City/[facility] Co de Phone Number [facility] [place] [address] * Sodium, urine, random (05/18/2025 2:39 PM CDT) Sodium, ur 144 mmol/L Comment: Interpretive Data No reference range established. Current interpretive data was last revised 2019. Urine 05/18/2025 2:39 PM CDT 05/18/2025 3:09 PM CDT Tania Lott MD PhD LAB URINE ORDERABLES Fin al Result Performing Organization Address [facility] Co de Phone Number [facility] [place] [address] * Creatinine, urine, random (05/18/2025 2:39 PM CDT) Creatinine Ur 81.5 mg/dL Comment: Interpretive Data No reference range established. Current interpretive data was last revised 2019. Urine 05/18/2025 2:39 PM CDT 05/18/2025 3:09 PM CDT Tania Lott MD PhD LAB URINE ORDERABLES Fin al Result Performing Organization Address [facility] Phone Number [facility] [place] [address] * POCT glucose (05/18/2025 1:59 PM CDT) Glucose, POC 159 70 - 199 mg/dL Blood 05/18/2025 1:59 PM CDT 05/18/2025 1:59 PM CDT Tania Lott MD PhD LAB POCT ORDERABLES - DE VICE Final Result Performing Organization Address [facility] de Phone Number [facility] [place] [address] * US Vein Duplex Lower Extremity Bilateral Complete (05/18/2025 11:52 AM CDT) Anatomical Region Laterality Modality Vascular Bilateral Ultrasound 05/18/2025 10:1 7 AM CDT Narrative 05/18/2025 10:53 PM CDT [facility] - Department of Vascular Surgery, Vascular Laboratory [address] [place] [id number] Lower Extremity Venous Ultrasound Report Patient Name: TAMMY WRIGHT : 1965 (60y 1m) Study Date: 05/18/2025 10:17:02 AM Gender: M Tech: Location: [id number] Ref Provider: TANIA LOTT Quality: Adequate Order Provider: TANIA LOTT PROCEDURES: Vascular Report: Venous Duplex imaging was performed bilaterally in the lower extremities. The common femoral, femoral, popliteal, posterior tibial, peroneal veins were evaluated for patency, spontaneity and phasicity with Doppler, compression and augmentation maneuvers. Great saphenous vein proximal at the junction was evaluated with compression maneuvers. INDICATIONS: asymmetric R>L LE edema + erythema - FINDINGS: Performing Nutrition And Dietetics Instructor: Amena Reed RVT. Bilateral: Venous Doppler signals in the bilateral lower extremity are within normal limits for spontaneity and phasicity and respond normally to augmentation maneuvers. No evidence of deep vein thrombus by duplex, proximal to the calf. CONCLUSIONS: 1. There is no evidence of acute deep vein thrombosis in the lower extremities bilaterally. Noninvasive venous studies cannot rule out isolated calf vein obstruction. HISTORY: CVA, COPD, HTN, Smoker, acute leukemia. PREVIOUS STUDIES: No previous studies for comparison. DISCLAIMER: The study images and the final report will be retained in the patient chart by the Vascular Laboratory for the legally required time period. This chart constitutes the legal record of any testing performed. ATTESTATION: I have reviewed and interpreted the pertinent images and measurements of this study. I attest to the conclusions in the final report that is provided above. Electronically Signed By: Renzo Simon MD FACS 05/18/2025 10:06:52 PM CDT Procedure Note Renzo Simon MD - 05/18/2025 [facility] - Department of Vascular Surgery,Vascular Laboratory [address] [place] [address] Lower Extremity Venous Ultrasound Report Patient Name: TAMMY WRIGHT : 1965 (60y 1m) Study Date: 05/18/2025 10:17:02 AM Gender: M Tech: Location: [id number] Ref Provider: TANIA LOTT Quality: Adequate Order Provider: TANIA LOTT PROCEDURES: Vascular Report: Venous Duplex imaging was performed bilaterally in the lower extremities.The common femoral, femoral, popliteal, posterior tibial, peroneal veins wereevaluated for patency, spontaneity and phasicity with Doppler, compression and augmentationmaneuvers. Great saphenous vein proximal at the junction was evaluated with compressionmaneuvers. INDICATIONS: asymmetric R>L LE edema + erythema - FINDINGS: Performing Nutrition And Dietetics Instructor: Amena Reed RVT. Bilateral: Venous Doppler signals in the bilateral lower extremity are within normallimits for spontaneity and phasicity and respond normally to augmentation maneuvers.No evidence of deep vein thrombus by duplex, proximal to the calf. CONCLUSIONS: 1. There is no evidence of acute deep vein thrombosis in the lowerextremities bilaterally. Noninvasive venous studies cannot rule out isolated calf veinobstruction. HISTORY: CVA, COPD, HTN, Smoker, acute leukemia. PREVIOUS STUDIES: No previous studies for comparison. DISCLAIMER: The study images and the final report will be retained in the patientchart by the Vascular Laboratory for the legally required time period. This chartconstitutes the legal record of any testing performed. ATTESTATION: I have reviewed and interpreted the pertinent images and measurements ofthis study. I attest to the conclusions in the final report that is provided above. Electronically Signed By: Renzo Simon MD [facility] 05/18/2025 10:06:52 PM CDT Tania Lott MD PhD IMG US PROCEDURES Final Result * POCT glucose (05/18/2025 8:39 AM CDT) Glucose, POC 145 70 - 199 mg/dL Blood 05/18/2025 8:39 AM CDT 05/18/2025 8:39 AM CDT Tania Lott MD PhD LAB POCT ORDERABLES - DE VICE Final Result ANGELA [facility] [place] [address] * (ABNORMAL) Immature platelet fraction (05/18/2025 12:40 AM CDT) IPF 20.6(H) 1.6 - 10.1 % Blood 05/18/2025 12:4 0 AM CDT 05/18/2025 1:34 AM CDT us Sandy Meraz [employer] LAB BLOOD ORDERABLES Final R esult Performing Organization Address [facility] Co de Phone Number ANGELA [facility] Department [place] [address] * eGFR (05/18/2025 12:40 AM CDT) eGFR >90 >=60 mL/min/1. 73 [...] of Race in Diagnosing Kidney Disease, JASN 2020). The CKD-EPI equation should not be used for patients with unstable renal function and has not been validated in children and those over 70. Current interpretive data was last reviewed 2021. Blood 05/18/2025 12:4 0 AM CDT 05/18/2025 1:30 AM CDT us Tania Lott MD PhD LAB BLOOD ORDERABLES Fin al Result Performing Organization Address City/[facility]/ZIP Co de Phone Number ANGELA [facility] Department [place] [address] * (ABNORMAL) Differential, auto (05/18/2025 12:40 AM CDT) Neutrophil abs 0.34(C) 1.50 - 6.50 K/cumm Comment:BMT patient, result not critical Imm gran abs 0.07 0.00 - 0.10 K/cumm [facility] Lymphocyte abs 1.05 0.80 - 3.30 K/cumm [facility] Monocyte abs 0.12(L) 0.20 - 0.80 K/cumm [facility] Eosinophil abs 0.01 0.00 - 0.50 K/cumm [facility] Basophil abs 0.00 0.00 - 0.10 K/cumm [facility] Neutrophil pct 21.5 % [facility] Comment: Interpretive Data Percent cell count reference ranges are not reported, since discordance with absolute values may lead to misinterpretation of CBC data. Current Interpretive Data was last revised on 2018. Imm gran pct 4.4 % [facility] Comment: Interpretive Data Percent cell count reference ranges are not reported, since discordance with absolute values may lead to misinterpretation of CBC data. Current Interpretive Data was last revised on 2018. Lymphocyte pct 66.0 % [facility] Comment: Interpretive Data Percent cell count reference ranges are not reported, since discordance with absolute values may lead to misinterpretation of CBC data. Current Interpretive Data was last revised on 2018. Monocyte pct 7.5 % [facility] Comment: Interpretive Data Percent cell count reference ranges are not reported, since discordance with absolute values may lead to misinterpretation of CBC data. Current Interpretive Data was last revised on 2018. Eosinophil pct 0.6 % [facility] Comment: Interpretive Data Percent cell count reference ranges are not reported, since discordance with absolute values may lead to misinterpretation of CBC data. Current Interpretive Data was last revised on 2018. Basophil pct 0.0 % [facility] Comment: Interpretive Data Percent cell count reference ranges are not reported, since discordance with absolute values may lead to misinterpretation of CBC data. Current Interpretive Data was last revised on 2018. Blood 05/18/2025 12:4 0 AM CDT 05/18/2025 1:21 AM CDT Sandy Meraz NP LAB BLOOD ORDERABLES Final R esult [facility] Department [place] [address] * (ABNORMAL) CBC with auto differential (05/18/2025 12:40 AM CDT) [facility] WBC 1.63(L) 3.80 - 9.90 K/cumm Hgb 8.2(L) 13.0 - 17.5 g/dL [facility] Hct 25.1(L) 38.9 - 50.3 % [facility] Plt 12(C) 150 - 400 K/cumm [facility] Comment:Platelet count confi rmed by additional testing. Critical platelet count threshold determined by patient location: Outpatient:<50 K/cumm , Inpatient adults:<20 K/cumm , Inpatient pediatric:<25 K/cumm, BMT service:<10 K/cumm MPV Not Measured 9.1 - 12.3 fL [facility] RBC 2.74(L) 4.30 - 5.80 M/cumm [facility] MCV 91.6 81.3 - 96.4 fL [facility] MCH 29.9 27.1 - 33.3 pg [facility] MCHC 32.7 32.3 - 35.7 g/dL [facility] RDW CV 18.9(H) 11.1 - 14.9 % [facility] RDW SD 60.8(H) 35.7 - 48.1 fL [facility] NRBC abs 0.24(H) 0.00 - 0.01 K/cumm [facility] Blood 05/18/2025 12:4 0 AM CDT 05/18/2025 1:21 AM CDT us Sandy Meraz NP LAB BLOOD ORDERABLES Final R esult [facility] Department [place] [address] * (ABNORMAL) Uric acid (05/18/2025 12:40 AM CDT) [facility] Uric acid 2.3(L) 3.0 - 8.0 mg/dL Blood 05/18/2025 12:4 0 AM CDT 05/18/2025 1:21 AM CDT Tania Lott MD PhD LAB BLOOD ORDERABLES Fin al Result Performing Organization Address [facility] de Phone Number [facility] [place] [address] * Phosphorus (05/18/2025 12:40 AM CDT) Pathologist [facility] Phosphorus, pl 3.3 2.3 - 4.5 mg/dL Blood 05/18/2025 12:4 0 AM CDT 05/18/2025 1:21 AM CDT Tania Lott MD PhD LAB BLOOD ORDERABLES Fin al Result Performing Organization Address [facility] de Phone Number [facility] [place] [address] * Magnesium (05/18/2025 12:40 AM CDT) [facility] Magnesium 1.9 1.4 - 2.5 mg/dL Blood 05/18/2025 12:4 0 AM CDT 05/18/2025 1:21 AM CDT us Sandy Meraz [employer] LAB BLOOD ORDERABLES Final R esult Performing Organization Address [facility] de Phone Number [facility] [place] [address] * (ABNORMAL) Lactate dehydrogenase (LD) (05/18/2025 12:40 AM CDT) Pathologist [facility] Lactate dehydrogenase (LDH) 1,092(H) 100 - 250 Units/L Blood 05/18/2025 12:4 0 AM CDT 05/18/2025 1:21 AM CDT us Tania Lott MD PhD LAB BLOOD ORDERABLES Fin al Result Performing Organization Address [facility] Co de Phone Number [facility] [place] [address] * (ABNORMAL) Hepatic function panel (05/18/2025 12:40 AM CDT) [facility] Bilirubin, total 0.8 0.1 - 1.2 mg/dL Bilirubin, direct 0.3 0.1 - 0.3 mg/dL [facility] Protein, pl 5.3(L) 6.5 - 8.5 g/dL [facility] Albumin 2.9(L) 3.5 - 5.0 g/dL [facility] Alk phos 51 40 - 130 Units/L [facility] ALT 28 7 - 55 Units/L [facility] AST 25 10 - 50 Units/L [facility] Blood 05/18/2025 12:4 0 AM CDT 05/18/2025 1:21 AM CDT us Sandy Meraz [employer] LAB BLOOD ORDERABLES Final R esult Performing Organization Address [facility] de Phone Number [facility] Department [place] [address] * Basic metabolic panel (05/18/2025 12:40 AM CDT) [facility] Sodium 138 135 - 145 mmol/L Potassium, pl 4.1 3.3 - 4.9 mmol/L [facility] Chloride 105 97 - 110 mmol/L [facility] CO2 30 22 - 32 mmol/L [facility] Anion gap 3 2 - 15 mmol/L [facility] BUN 20 6 - 25 mg/dL [facility] Creatinine 0.80 0.80 - 1.30 mg/dL [facility] Glucose 105 70 - 199 mg/dL [facility] Comment: Interpretive Data Fasting glucose >/= 126 [...] 2022. Calcium 8.5 8.5 - 10.3 mg/dL [facility] Blood 05/18/2025 12:4 0 AM CDT 05/18/2025 1:21 AM CDT Tania Lott MD PhD LAB BLOOD ORDERABLES Fin al Result Performing Organization Address [facility] de Phone Number [facility] Department [place] [address] * POCT glucose (05/17/2025 8:34 PM CDT) Glucose, POC 141 70 - 199 mg/dL Blood 05/17/2025 8:34 PM CDT 05/17/2025 8:34 PM CDT Tania Lott MD PhD LAB POCT ORDERABLES - DE VICE Final Result Performing Organization Address [facility] de Phone Number [facility] Department [place] [address] * POCT glucose (05/17/2025 5:25 PM CDT) Glucose, POC 117 70 - 199 mg/dL Blood 05/17/2025 5:25 PM CDT 05/17/2025 5:25 PM CDT Tania Lott MD PhD LAB POCT ORDERABLES - DE VICE Final Result Performing Organization Address [facility] de Phone Number [facility] [place] [address] * MRI Safety, Technical Assessment, 15 min (05/17/2025 1:59 PM CDT) Narrative [id number] - 05/17/2025 2:21 PM CDT This study is to document the safety evaluation of the patient's medical implant/foreign body in advance of an MRI procedure. No imaging is acquired using this accession number. Please review the MRI Safety Note in the patient's medical record for additional details regarding the evaluation. us Elisabeth Cortes [employer] IMG MRI PROCEDURES Final Resu lt Performing Organization Address City/[facility] Co de Phone Number [email or web address] * POCT glucose (05/17/2025 11:39 AM CDT) Glucose, POC 144 70 - 199 mg/dL Blood 05/17/2025 11:3 9 AM CDT 05/17/2025 11:39 AM CDT us Tania Lott MD PhD LAB POCT ORDERABLES - DE VICE Final Result Performing Organization Address [facility] Co de Phone Number ANGELA [facility] [place] [address] * POCT glucose (05/17/2025 11:14 AM CDT) Glucose, POC 188 70 - 199 mg/dL Blood 05/17/2025 11:1 4 AM CDT 05/17/2025 11:14 AM CDT us Tania Lott MD PhD LAB POCT ORDERABLES - DE VICE Final Result Performing Organization Address [facility] Co de Phone Number ANGELA [facility] [place] [address] * POCT glucose (05/17/2025 7:55 AM CDT) Pathologist [facility] Glucose, POC 171 70 - 199 mg/dL Blood 05/17/2025 7:55 AM CDT 05/17/2025 7:55 AM CDT Tania Lott MD PhD LAB POCT ORDERABLES - DE VICE Final Result Performing Organization Address [facility] Co in Phone Number [facility] Department [place] [address] * (ABNORMAL) Immature platelet fraction (05/17/2025 12:30 AM CDT) Pathologist [facility] IPF 15.6(H) 1.6 - 10.1 % Blood 05/17/2025 12:3 0 AM CDT 05/17/2025 1:05 AM CDT Tania Lott MD PhD LAB BLOOD ORDERABLES Fin al Result Performing Organization Address [facility] Co de Phone Number [facility] [place] [address] * eGFR (05/17/2025 12:30 AM CDT) [facility] eGFR >90 >=60 mL/min/1. 73 m2 Comment: [...] of Race in Diagnosing Kidney Disease, JASN 2020). The CKD-EPI equation should not be used for patients with unstable renal function and has not been validated in children and those over 70. Current interpretive data was last reviewed 2021. Blood 05/17/2025 12:3 0 AM CDT 05/17/2025 1:00 AM CDT Tania Lott MD PhD LAB BLOOD ORDERABLES Fin al Result [facility] Department [place] [address] * (ABNORMAL) CBC with auto differential (05/17/2025 12:30 AM CDT) Pathologist [facility] WBC 1.48(L) 3.80 - 9.90 K/cumm Hgb 8.0(L) 13.0 - 17.5 g/dL [facility] Hct 23.7(L) 38.9 - 50.3 % [facility] Plt 10(C) 150 - 400 K/cumm [facility] Comment:Platelet count confi rmed by additional testing. Critical platelet count threshold determined by patient location: Outpatient:<50 K/cumm , Inpatient adults:<20 K/cumm , Inpatient pediatric:<25 K/cumm, BMT service:<10 K/cumm MPV 11.5 9.1 - 12.3 fL [facility] RBC 2.64(L) 4.30 - 5.80 M/cumm [facility] MCV 89.8 81.3 - 96.4 fL [facility] MCH 30.3 27.1 - 33.3 pg [facility] MCHC 33.8 32.3 - 35.7 g/dL [facility] RDW CV 19.9(H) 11.1 - 14.9 % [facility] RDW SD 61.8(H) 35.7 - 48.1 fL [facility] NRBC abs 1.02(H) 0.00 - 0.01 K/cumm [facility] Blood 05/17/2025 12:3 0 AM CDT 05/17/2025 12:55 AM CDT us Tania Lott MD PhD LAB BLOOD ORDERABLES Fin al Result [facility] Department [place] [address] * (ABNORMAL) Manual Differential (05/17/2025 12:30 AM CDT) Differential Manual [facility] Neutrophil abs 0.40(C) 1.50 - 6.50 K/cumm [facility] Comment:BMT patient, result not critical Imm gran abs 0.03 0.00 - 0.10 K/cumm [facility] Lymphocyte abs 0.97 0.80 - 3.30 K/cumm [facility] Monocyte abs 0.01(L) 0.20 - 0.80 K/cumm [facility] Basophil abs 0.01 0.00 - 0.10 K/cumm [facility] Neutrophil pct 27.0 % [facility] Comment: Interpretive Data Percent cell count reference ranges are not reported, since discordance with absolute values may lead to misinterpretation of CBC data. Current Interpretive Data was last revised on 2018. Lymphocyte pct 65.8 % [facility] Comment: Interpretive Data Percent cell count reference ranges are not reported, since discordance with absolute values may lead to misinterpretation of CBC data. Current Interpretive Data was last revised on 2018. Monocyte pct 0.9 % [facility] Comment: Interpretive Data Percent cell count reference ranges are not reported, since discordance with absolute values may lead to misinterpretation of CBC data. Current Interpretive Data was last revised on 2018. Basophil pct 0.9 % [facility] Comment: Interpretive Data Percent cell count reference ranges are not reported, since discordance with absolute values may lead to misinterpretation of CBC data. Current Interpretive Data was last revised on 2018. Myelocyte pct 1.8(H) 0.0 - 0.0 % [facility] Blast pct 3.6(C) 0.0 - 0.0 [facility] Comment:Critical value greene d within last 30 days. Blood 05/17/2025 12:3 0 AM CDT 05/17/2025 1:05 AM CDT Tania Lott MD PhD LAB BLOOD ORDERABLES Fin al Result Performing Organization Address [facility] de Phone Number [facility] [place] [address] * aPTT (05/17/2025 12:30 AM CDT) aPTT 26 26 - 38 sec Comment: Interpretive Data Heparin therapeutic range: 66.0 - 100.0 seconds. Range based on correlation with therapeutic heparin activity range of 0.3 - 0.7 Units/mL. Current interpretive data was last revised on 2023. Blood 05/17/2025 12:3 0 AM CDT 05/17/2025 12:55 AM CDT Tania Lott MD PhD LAB BLOOD ORDERABLES Fin al Result Performing Organization Address [facility] de Phone Number [facility] [place] [address] * Protime-INR (05/17/2025 12:30 AM CDT) PT 13.4 10.2 - 13.5 sec INR 1.19 0.90 - 1.20 [facility] Comment: Interpretive data Oral anticoagulant therapeutic ranges: Venous thromboembolism prophylaxis or treatment: 2.0-3.0 CARDIOLOGY Standard range: 2.0-3.0 High-intensity range: 2.5-3.5 Refer to indication-specific guidelines for appropriate target ranges for prosthetic heart valve replacement. Current interpretive data was last revised on 2019. Blood 05/17/2025 12:3 0 AM CDT 05/17/2025 12:55 AM CDT Tania Lott MD PhD LAB BLOOD ORDERABLES Fin al Result Performing Organization Address [facility] de Phone Number [facility] Department [place] [address] * Type and screen (05/17/2025 12:30 AM CDT) ABO Rh B Positive Benjy, indirect Negative [facility] Blood 05/17/2025 12:3 0 AM CDT 05/17/2025 1:03 AM CDT Narrative [facility] - 05/17/2025 1:55 AM CDT Has the patient had Daratumumab or Isatuximab in the past 6 months?->Unknown Erika Chandler DO LAB BLOOD BANK TEST ORDERABLES F inal Result Performing Organization Address [facility] de Phone Number [facility] Department [place] [address] * (ABNORMAL) Uric acid (05/17/2025 12:30 AM CDT) Pathologist [facility] Uric acid 2.4(L) 3.0 - 8.0 mg/dL Blood 05/17/2025 12:3 0 AM CDT 05/17/2025 12:55 AM CDT Tania Lott MD PhD LAB BLOOD ORDERABLES Fin al Result Performing Organization Address City/[facility] Co de Phone Number [facility] Department [place] [address] * Phosphorus (05/17/2025 12:30 AM CDT) Phosphorus, pl 3.3 2.3 - 4.5 mg/dL Blood 05/17/2025 12:3 0 AM CDT 05/17/2025 12:55 AM CDT Tania Lott MD PhD LAB BLOOD ORDERABLES Fin al Result Performing Organization Address City/[facility] Co de Phone Number [facility] [place] [address] * Magnesium (05/17/2025 12:30 AM CDT) Pathologist [facility] Magnesium 2.2 1.4 - 2.5 mg/dL Blood 05/17/2025 12:3 0 AM CDT 05/17/2025 12:55 AM CDT Tania Lott MD PhD LAB BLOOD ORDERAB[place] [address] * (ABNORMAL) Lactate dehydrogenase (LD) (05/17/2025 12:30 AM CDT) [facility] Lactate dehydrogenase (LDH) 1,261(H) 100 - 250 Units/L Blood 05/17/2025 12:3 0 AM CDT 05/17/2025 12:55 AM CDT us Tania Lott MD PhD LAB BLOOD ORDERABLES Fin al Result Performing Organization Address City/[facility] [place] [address] * (ABNORMAL) Hepatic function panel (05/17/2025 12:30 AM CDT) [facility] Bilirubin, total 1.0 0.1 - 1.2 mg/dL Bilirubin, direct 0.4(H) 0.1 - 0.3 mg/dL [facility] Protein, pl 4.8(L) 6.5 - 8.5 g/dL [facility] Albumin 2.8(L) 3.5 - 5.0 g/dL [facility] Alk phos 45 40 - 130 Units/L [facility] ALT 20 7 - 55 Units/L [facility] AST 29 10 - 50 Units/L [facility] Blood 05/17/2025 12:3 0 AM CDT 05/17/2025 12:55 AM CDT Tania Lott MD PhD LAB BLOOD ORDERABLES Fin al Result Performing Organization Address City/[facility]/ZIP Co de Phone Number [facility] Department [place] [address] * (ABNORMAL) Basic metabolic panel (05/17/2025 12:30 AM CDT) [facility] Sodium 139 135 - 145 mmol/L Potassium, pl 4.5 3.3 - 4.9 mmol/L [facility] Chloride 106 97 - 110 mmol/L [facility] CO2 29 22 - 32 mmol/L [facility] Anion gap 4 2 - 15 mmol/L [facility] BUN 23 6 - 25 mg/dL [facility] Creatinine 0.69(L) 0.80 - 1.30 mg/dL [facility] Glucose 100 70 - 199 mg/dL [facility] Comment: Interpretive Data Fasting glucose >/= 126 [...] interpretive data was last revised 2022. Calcium 8.3(L) 8.5 - 10.3 mg/dL [facility] Blood 05/17/2025 12:3 0 AM CDT 05/17/2025 12:55 AM CDT us Tania Lott MD PhD LAB BLOOD ORDERABLES Fin al Result Performing Organization Address [facility] Co de Phone Number [facility] Department [place] [address] * POCT glucose (05/16/2025 9:58 PM CDT) Glucose, POC 139 70 - 199 mg/dL Blood 05/16/2025 9:58 PM CDT 05/16/2025 9:58 PM CDT us Tania Lott MD PhD LAB POCT ORDERABLES - DE VICE Final Result [facility] Department [place] [address] * X-ray chest 2 views (05/16/2025 5:49 PM CDT) Anatomical Region Laterality Modality Body, Chest N/A Computed Radiogr aphy 05/17/2025 7:12 AM CDT Impressions 05/17/2025 7:12 AM CDT Comparison 05/13/2025. There is a 2-lead pacemaker. Right IJ CVC with tip over the SVC. Heart size and mediastinum are unchanged. No abandoned leads. No lead discontinuity. There is no pleural effusion. There is mild bibasilar opacities which may represent partial atelectasis. No pneumothorax. Electronically signed by: Jorge Ag M.D. Narrative 05/17/2025 7:12 AM CDT EXAMINATION: 2 view chest radiograph Procedure Note Jorge Ag MD - 05/17/2025 EXAMINATION: 2 view chest radiograph IMPRESSION: Comparison 05/13/2025. There is a 2-lead pacemaker. Right IJ CVC with tip over the SVC. Heart size and mediastinum are unchanged. No abandoned leads. No lead discontinuity. There is no pleural effusion. There is mild bibasilar opacities which may represent partial atelectasis. No pneumothorax. Electronically signed by: Jorge Ag M.D. us Elisabeth Cortes [employer] IMG XR PROCEDURES Final Resul t * Potassium, whole blood (05/16/2025 5:30 PM CDT) Potassium, bld 4.5 3.3 - 4.9 mmol/L Blood 05/16/2025 5:30 PM CDT 05/16/2025 5:36 PM CDT [facility] Chandler DO LAB BLOOD ORDERABLES Final Resul t [facility] [place] [address] * eGFR (05/16/2025 5:30 PM CDT) eGFR >90 >=60 mL/min/1. 73 m2 [...] of Race in Diagnosing Kidney Disease, JASN 2020). The CKD-EPI equation should not be used for patients with unstable renal function and has not been validated in children and those over 70. Current interpretive data was last reviewed 2021. Blood 05/16/2025 5:30 PM CDT 05/16/2025 6:10 PM CDT Annelee annlaurence Chandler DO LAB BLOOD ORDERABLES Final Resul t [facility] [place] [address] * (ABNORMAL) Uric acid (05/16/2025 5:30 PM CDT) Uric acid 2.4(L) 3.0 - 8.0 mg/dL Blood 05/16/2025 5:30 PM CDT 05/16/2025 6:10 PM CDT Narrative [facility] - 05/16/2025 6:31 PM CDT Q8hr TLS labs [facility] LAB BLOOD ORDERABLES Final Resul t Performing Organization Address City/[facility]/ZIP Co de Phone Number [facility] Department [place] [address] * Phosphorus (05/16/2025 5:30 PM CDT) [facility] Phosphorus, pl 3.1 2.3 - 4.5 mg/dL Blood 05/16/2025 5:30 PM CDT 05/16/2025 6:10 PM CDT Annelaurence Chandler LAB BLOOD ORDERABLES Final Resul t Performing Organization Address [facility] de Phone Number [facility] Department [place] [address] * (ABNORMAL) Basic metabolic panel (05/16/2025 5:30 PM CDT) [facility] Sodium 139 135 - 145 mmol/L Potassium, pl 4.7 3.3 - 4.9 mmol/L [facility] Chloride 104 97 - 110 mmol/L [facility] CO2 29 22 - 32 mmol/L [facility] Anion gap 6 2 - 15 mmol/L [facility] BUN 27(H) 6 - 25 mg/dL [facility] Creatinine 0.68(L) 0.80 - 1.30 mg/dL [facility] Glucose 150 70 - 199 mg/dL [facility] Comment: Interpretive Data Fasting glucose >/= 126 [...] interpretive data was last revised 2022. Calcium 8.0(L) 8.5 - 10.3 mg/dL [facility] Blood 05/16/2025 5:30 PM CDT 05/16/2025 6:10 PM CDT Erika Chandler DO LAB BLOOD ORDERABLES Final Resul t [facility] [place] [address] * POCT glucose (05/16/2025 5:05 PM CDT) Glucose, POC 166 70 - 199 mg/dL Blood 05/16/2025 5:05 PM CDT 05/16/2025 5:05 PM CDT Tania Lott MD PhD LAB POCT ORDERABLES - DE VICE Final Result Performing Organization Address City/[facility] Co de Phone Number [facility] [place] [address] * Transfuse RBC (05/16/2025 3:21 PM CDT) Blood Tania Lott MD PhD BLOOD TRANSFUSION ORDERA BLES Final Result Performing Organization Address City/[facility]/ZIP Co de Phone Number [facility] [place] [address] * POCT glucose (05/16/2025 1:03 PM CDT) Glucose, POC 172 70 - 199 mg/dL Blood 05/16/2025 1:03 PM CDT 05/16/2025 1:03 PM CDT us Tania Lott MD PhD LAB POCT ORDERABLES - DE VICE Final Result Performing Organization Address City/[facility]/ZIP Co de Phone Number [facility] [place] [address] * POCT glucose (05/16/2025 8:21 AM CDT) Glucose, POC 110 70 - 199 mg/dL Blood 05/16/2025 8:21 AM CDT 05/16/2025 8:21 AM CDT us Tania Lott MD PhD LAB POCT ORDERABLES - DE VICE Final Result Performing Organization Address [facility] Co de Phone Number [facility] [place] [address] * Type and screen (05/16/2025 8:13 AM CDT) Benjy, indirect Negative ABO Rh B Positive [facility] Blood 05/16/2025 8:13 AM CDT 05/16/2025 8:38 AM CDT Narrative [facility] - 05/16/2025 9:21 AM CDT Has the patient had Daratumumab or Isatuximab in the past 6 months?->Unknown us Elisabeth Cortes [employer] LAB BLOOD BANK TEST ORDERABLE S Final Result Performing Organization Address [facility] Co de Phone Number [facility] [place] [address] * (ABNORMAL) Lactate dehydrogenase (LD) (05/16/2025 8:13 AM CDT) Lactate dehydrogenase (LDH) 1,553(H) 100 - 250 Units/L Blood 05/16/2025 8:13 AM CDT 05/16/2025 8:52 AM CDT Tania Lott MD PhD LAB BLOOD ORDERABLES Fin al Result Performing Organization Address [facility] de Phone Number [facility] [place] [address] * Transfuse platelets (05/16/2025 8:06 AM CDT) Tania Lott MD PhD BLOOD TRANSFUSION ORDERA BLES Final Result Performing Organization Address [facility] de Phone Number [facility] [place] [address] * Prepare RBC: 1 Units (05/16/2025 7:48 AM CDT) Pathologist [facility] Product code [id number] Unit Number [id number] [facility] Product Blood Type BPOS [facility] Dispense Status PRESUMED TRANSFUSED [facility] Blood Venous blood specimen / Unknown 05/16/2025 7:48 AM CDT 05/16/2025 7:47 AM CDT Narrative [facility] - 05/17/2025 12:55 AM CDT Are special requirements needed? (All products are leukoreduced and CMV- safe)- >Yes Date required:-[id number] Special Req 1:-Irradiated LRRBC # of [id number] Reasons:-BMT, Hgb <8 g/dL} Tania Lott MD PhD BLOOD BANK PRODUCT ORDER BIANKA Final Result Performing Organization Address [facility] de Phone Number [facility] [place] [address] * POCT glucose (05/16/2025 5:48 AM CDT) Pathologist [facility] Glucose, POC 115 70 - 199 mg/dL Blood 05/16/2025 5:48 AM CDT 05/16/2025 5:48 AM CDT us Tania Lott MD PhD LAB POCT ORDERABLES - DE VICE Final Result Performing Organization Address City/[facility]/ZIP Co de Phone Number [facility] Department [place] [address] * Prepare platelets: 1 Units (05/16/2025 5:45 AM CDT) [facility] Product code [id number] Unit Number [id number] [facility] Product Blood Type BPOS [facility] Dispense Status PRESUMED TRANSFUSED [facility] Blood Venous blood specimen / Unknown 05/16/2025 5:45 AM CDT 05/16/2025 5:44 AM CDT Narrative [facility] - 05/16/2025 8:00 PM CDT Are special requirements needed? (all products are leukoreduced)->Yes Date required:-20250514 Special Req 1:-Irradiated PLT # of Units:-1-Units Reasons:-Stable, non-bleeding, plt < 10 K/cumm} us Tania Lott MD PhD BLOOD BANK PRODUCT ORDER BIANKA Final Result Performing Organization Address [facility] Co de Phone Number [facility] Department [place] [address] * (ABNORMAL) Immature platelet fraction (05/16/2025 4:44 AM CDT) [facility] IPF 23.1(H) 1.6 - 10.1 % Blood 05/16/2025 4:44 AM CDT 05/16/2025 4:59 AM CDT us Sandy Meraz NP LAB BLOOD ORDERABLES Final R esult Performing Organization Address [facility]/ZIP Co de Phone Number [facility] [place] [address] * Potassium, whole blood (05/16/2025 4:44 AM CDT) Potassium, bld 4.2 3.3 - 4.9 mmol/L Blood 05/16/2025 4:44 AM CDT 05/16/2025 4:50 AM CDT [facility] Chandler LAB BLOOD ORDERABLES Final Resul t Performing Organization Address City/[facility]/ZIP Co de Phone Number [facility] Department [place] [address] * eGFR (05/16/2025 4:44 AM CDT) Pathologist [facility] eGFR >90 >=60 mL/min/1. 73 m2 Comment: [...] of Race in Diagnosing Kidney Disease, JASN 2020). The CKD-EPI equation should not be used for patients with unstable renal function and has not been validated in children and those over 70. Current interpretive data was last reviewed 2021. Blood 05/16/2025 4:44 AM CDT 05/16/2025 4:55 AM CDT Erika Chandler DO LAB BLOOD ORDERABLES Final Resul t [facility] [place] [address] * (ABNORMAL) CBC with auto differential (05/16/2025 4:44 AM CDT) WBC 1.64(L) 3.80 - 9.90 K/cumm Hgb 7.0(L) 13.0 - 17.5 g/dL [facility] Hct 20.6(L) 38.9 - 50.3 % [facility] Plt 7(C) 150 - 400 K/cumm [facility] Comment:This result has been called to Emma Workman RN by [email or web address] on 05/16/2025 05:15:52, and has been read back. MPV Not Measured 9.1 - 12.3 fL [facility] RBC 2.27(L) 4.30 - 5.80 M/cumm [facility] MCV 90.7 81.3 - 96.4 fL [facility] MCH 30.8 27.1 - 33.3 pg [facility] MCHC 34.0 32.3 - 35.7 g/dL [facility] RDW CV 18.7(H) 11.1 - 14.9 % [facility] RDW SD 59.6(H) 35.7 - 48.1 fL [facility] NRBC abs 2.31(H) 0.00 - 0.01 K/cumm [facility] Morphologic Screen Results confirmed by manual morphology review. [facility] Blood 05/16/2025 4:44 AM CDT 05/16/2025 4:56 AM CDT Sandy Meraz NP LAB BLOOD ORDERABLES Edited Result - Final [facility] Department [place] [address] * (ABNORMAL) Manual Differential (05/16/2025 4:44 AM CDT) [facility] Differential Manual Cells Counted 90 [facility] Neutrophil abs 1.26(L) 1.50 - 6.50 K/cumm [facility] Lymphocyte abs 0.29(L) 0.80 - 3.30 K/cumm [facility] Monocyte abs 0.02(L) 0.20 - 0.80 K/cumm [facility] Basophil abs 0.02 0.00 - 0.10 K/cumm [facility] Neutrophil pct 76.7 % [facility] Comment: Interpretive Data Percent cell count reference ranges are not reported, since discordance with absolute values may lead to misinterpretation of CBC data. Current Interpretive Data was last revised on 2018. Lymphocyte pct 16.7 % [facility] Comment: Interpretive Data Percent cell count reference ranges are not reported, since discordance with absolute values may lead to misinterpretation of CBC data. Current Interpretive Data was last revised on 2018. Monocyte pct 1.1 % [facility] Comment: Interpretive Data Percent cell count reference ranges are not reported, since discordance with absolute values may lead to misinterpretation of CBC data. Current Interpretive Data was last revised on 2018. Basophil pct 1.1 % [facility] Comment: Interpretive Data Percent cell count reference ranges are not reported, since discordance with absolute values may lead to misinterpretation of CBC data. Current Interpretive Data was last revised on 2018. Blast pct 3.3(C) 0.0 - 0.0 [facility] Comment:Critical value greene d within last 30 days. Variant lymph pct 1.1(H) 0.0 - 0.0 % [facility] Blood 05/16/2025 4:44 AM CDT 05/16/2025 4:59 AM CDT Sandy Meraz [employer] LAB BLOOD ORDERABLES Final R esult [facility] Department [place] [address] * (ABNORMAL) Uric acid (05/16/2025 4:44 AM CDT) Uric acid 2.9(L) 3.0 - 8.0 mg/dL Blood 05/16/2025 4:44 AM CDT 05/16/2025 4:55 AM CDT Narrative [facility] - 05/16/2025 5:23 AM CDT Q8hr TLS labs Erika Chandler DO LAB BLOOD ORDERABLES Final Resul t Performing Organization Address [facility] Co de Phone Number [facility] [place] [address] * Phosphorus (05/16/2025 4:44 AM CDT) Phosphorus, pl 3.8 2.3 - 4.5 mg/dL Blood 05/16/2025 4:44 AM CDT 05/16/2025 4:55 AM CDT Annelaurence Chandler DO LAB BLOOD ORDERABLES Final Resul t Performing Organization Address [facility] de Phone Number [facility] [place] [address] * (ABNORMAL) Magnesium (05/16/2025 4:44 AM CDT) Pathologist [facility] Magnesium 2.6(H) 1.4 - 2.5 mg/dL Blood 05/16/2025 4:44 AM CDT 05/16/2025 4:55 AM CDT Sandy Meraz [employer] LAB BLOOD ORDERABLES Final R esult Performing Organization Address [facility] Co de Phone Number [facility] [place] [address] * (ABNORMAL) Hepatic function panel (05/16/2025 4:44 AM CDT) Bilirubin, total 0.9 0.1 - 1.2 mg/dL Bilirubin, direct 0.4(H) 0.1 - 0.3 mg/dL [facility] Protein, pl 4.6(L) 6.5 - 8.5 g/dL [facility] Albumin 2.7(L) 3.5 - 5.0 g/dL [facility] Alk phos 48 40 - 130 Units/L [facility] ALT 15 7 - 55 Units/L [facility] AST 33 10 - 50 Units/L [facility] Blood 05/16/2025 4:44 AM CDT 05/16/2025 4:55 AM CDT Sandy Meraz [employer] LAB BLOOD ORDERABLES Final R esult Performing Organization Address City/[facility]/ZIP Co de Phone Number [facility] Department [place] [address] * (ABNORMAL) Basic metabolic panel (05/16/2025 4:44 AM CDT) Pathologist [facility] Sodium 138 135 - 145 mmol/L Potassium, pl 4.3 3.3 - 4.9 mmol/L [facility] Chloride 104 97 - 110 mmol/L [facility] CO2 29 22 - 32 mmol/L [facility] Anion gap 5 2 - 15 mmol/L [facility] BUN 32(H) 6 - 25 mg/dL [facility] Creatinine 0.78(L) 0.80 - 1.30 mg/dL [facility] Glucose 106 70 - 199 mg/dL [facility] Comment: Interpretive Data Fasting glucose >/= 126 [...] interpretive data was last revised 2022. Calcium 8.1(L) 8.5 - 10.3 mg/dL [facility] Blood 05/16/2025 4:44 AM CDT 05/16/2025 4:55 AM CDT us Erika Chandler DO LAB BLOOD ORDERABLES Final Resul t Performing Organization Address [facility]/ZIP Co de Phone Number [facility] Department [place] [address] * POCT glucose (05/16/2025 12:06 AM CDT) Glucose, POC 171 70 - 199 mg/dL Blood 05/16/2025 12:0 6 AM CDT 05/16/2025 12:06 AM CDT us Tania Lott MD PhD LAB POCT ORDERABLES - [place] [address] * POCT glucose (05/15/2025 10:31 PM CDT) Glucose, POC 163 70 - 199 mg/dL Blood 05/15/2025 10:3 1 PM CDT 05/15/2025 10:31 PM CDT us Tania Lott MD PhD LAB POCT ORDERABLES - DE VICE Final Result Performing Organization Address [facility] [place] [address] * (ABNORMAL) Lactate dehydrogenase (LD) (05/15/2025 9:00 PM CDT) [facility] Lactate dehydrogenase (LDH) 1,935(H) 100 - 250 Units/L Comment:Repeated on Dilution Blood 05/15/2025 9:00 PM CDT 05/15/2025 9:19 PM CDT us Tania Lott MD PhD LAB BLOOD ORDERABLES Fin al Result [facility] [place] [address] * Potassium, whole blood (05/15/2025 5:05 PM CDT) Potassium, bld 4.6 3.3 - 4.9 mmol/L Blood 05/15/2025 5:05 PM CDT 05/15/2025 5:27 PM CDT [facility] Chandler LAB BLOOD ORDERABLES Final Resul t Performing Organization Address City/[facility] de Phone Number [facility] [place] [address] * eGFR (05/15/2025 5:05 PM CDT) eGFR >90 >=60 mL/min/1. 73 m2 [...] interpretive data was last reviewed 2021. Blood 05/15/2025 5:05 PM CDT 05/15/2025 5:42 PM CDT Erika Chandler LAB BLOOD ORDERABLES Final Resul t Performing Organization Address City/[facility]/ZIP Co de Phone Number [facility] [place] [address] * (ABNORMAL) Uric acid (05/15/2025 5:05 PM CDT) Uric acid 2.4(L) 3.0 - 8.0 mg/dL Blood 05/15/2025 5:05 PM CDT 05/15/2025 5:42 PM CDT Narrative [facility] - 05/15/2025 6:12 PM CDT Q8hr TLS labs [facility] LAB BLOOD ORDERABLES Final Resul t Performing Organization Address City/[facility]/ZIP Co de Phone Number [facility] Department [place] [address] * (ABNORMAL) Phosphorus (05/15/2025 5:05 PM CDT) [facility] Phosphorus, pl 4.7(H) 2.3 - 4.5 mg/dL Blood 05/15/2025 5:05 PM CDT 05/15/2025 5:42 PM CDT [facility] LAB BLOOD ORDERABLES Final Resul t Performing Organization Address [facility] de Phone Number [facility] Department [place] [address] * (ABNORMAL) Basic metabolic panel (05/15/2025 5:05 PM CDT) [facility] Sodium 137 135 - 145 mmol/L Potassium, pl 4.6 3.3 - 4.9 mmol/L [facility] Chloride 100 97 - 110 mmol/L [facility] CO2 29 22 - 32 mmol/L [facility] Anion gap 8 2 - 15 mmol/L [facility] BUN 39(H) 6 - 25 mg/dL [facility] Creatinine 0.78(L) 0.80 - 1.30 mg/dL [facility] Glucose 143 70 - 199 mg/dL [facility] Comment: Interpretive Data Fasting glucose >/= 126 [...] interpretive data was last revised 2022. Calcium 8.1(L) 8.5 - 10.3 mg/dL [facility] Blood 05/15/2025 5:05 PM CDT 05/15/2025 5:42 PM CDT Erika Chandler DO LAB BLOOD ORDERABLES Final Resul t Performing Organization Address [facility] Co de Phone Number [facility] [place] [address] * POCT glucose (05/15/2025 4:56 PM CDT) Glucose, POC 167 70 - 199 mg/dL Blood 05/15/2025 4:56 PM CDT 05/15/2025 4:56 PM CDT Tania Lott MD PhD LAB POCT ORDERABLES - DE VICE Final Result Performing Organization Address [facility] Co de Phone Number [facility] [place] [address] * (ABNORMAL) POCT glucose (05/15/2025 12:19 PM CDT) Glucose, POC 233(H) 70 - 199 mg/dL Blood 05/15/2025 12:1 9 PM CDT 05/15/2025 12:19 PM CDT Tania Lott MD PhD LAB POCT ORDERABLES - DE VICE Final Result Performing Organization Address [facility] Co de Phone Number [facility] [place] [address] * Transfuse RBC (05/15/2025 12:16 PM CDT) Blood Tania Lott MD PhD BLOOD TRANSFUSION ORDERA BLES Final Result Performing Organization Address [facility] Co de Phone Number [facility] [place] [address] * (ABNORMAL) Lactate dehydrogenase (LD) (05/15/2025 9:20 AM CDT) Lactate dehydrogenase (LDH) 2,440(H) 100 - 250 Units/L Comment:Repeated on Dilution Blood 05/15/2025 9:20 AM CDT 05/15/2025 9:41 AM CDT Tania Lott MD PhD LAB BLOOD ORDERABLES Fin al Result Performing Organization Address [facility] Co de Phone Number [facility] [place] [address] * POCT glucose (05/15/2025 8:33 AM CDT) Glucose, POC 187 70 - 199 mg/dL Blood 05/15/2025 8:33 AM CDT 05/15/2025 8:33 AM CDT Tania Lott MD PhD LAB POCT ORDERABLES - DE VICE Final Result Performing Organization Address [facility] Co de Phone Number [facility] [place] [address] * Transfuse platelets (05/15/2025 6:36 AM CDT) Tania Lott MD PhD BLOOD TRANSFUSION ORDERA BLES Final Result Performing Organization Address [facility] Co de Phone Number [facility] [place] [address] * Prepare RBC: 1 Units (05/15/2025 4:07 AM CDT) Product code [id number] Unit Number [id number] [facility] Product Blood Type BPOS [facility] Dispense Status PRESUMED TRANSFUSED [facility] Blood Venous blood specimen / Unknown 05/15/2025 4:07 AM CDT 05/15/2025 4:06 AM CDT Narrative [facility] - 05/15/2025 9:00 PM CDT Are special requirements needed? (All products are leukoreduced and CMV- safe)- >Yes Date required:-[id number] Special Req 1:-Irradiated LRRBC # of [id number] Reasons:-BMT, Hgb <8 g/dL} Tania Lott MD PhD BLOOD BANK PRODUCT ORDER BIANKA Final Result Performing Organization Address [facility] de Phone Number [facility] [place] [address] * Prepare platelets: 1 Units (05/15/2025 4:06 AM CDT) Product code [id number] Unit Number [id number] [facility] Product Blood Type [facility] Dispense Status PRESUMED TRANSFUSED [facility] Blood Venous blood specimen / Unknown 05/15/2025 4:06 AM CDT 05/15/2025 4:06 AM CDT Narrative [facility] - 05/15/2025 8:00 PM CDT Are special requirements needed? (all products are leukoreduced)->Yes Date required:-20250514 Special Req 1:-Irradiated PLT # of Units:-1-Units Reasons:-Stable, non-bleeding, plt < 10 K/cumm} Tania Lott MD PhD BLOOD BANK PRODUCT ORDER BIANKA Final Result Performing Organization Address [facility] Co de Phone Number [facility] [place] [place] [address] * (ABNORMAL) Immature platelet fraction (05/15/2025 3:04 AM CDT) Pathologist [facility] IPF 48.0(H) 1.6 - 10.1 % Blood 05/15/2025 3:04 AM CDT 05/15/2025 3:34 AM CDT Tania Lott MD PhD LAB BLOOD ORDERABLES Fin al Result Performing Organization Address [facility] de Phone Number [facility] [place] [address] * Potassium, whole blood (05/15/2025 3:04 AM CDT) Pathologist [facility] Potassium, bld 4.8 3.3 - 4.9 mmol/L Blood 05/15/2025 3:04 AM CDT 05/15/2025 3:27 AM CDT Tania Lott MD PhD LAB BLOOD ORDERABLES Fin al Result Performing Organization Address [facility] de Phone Number [facility] [place] [address] * eGFR (05/15/2025 3:04 AM CDT) [facility] eGFR >90 >=60 mL/min/1. 73 m2 Comment: [...] of Race in Diagnosing Kidney Disease, JASN 2020). The CKD-EPI equation should not be used for patients with unstable renal function and has not been validated in children and those over 70. Current interpretive data was last reviewed 2021. Blood 05/15/2025 3:04 AM CDT 05/15/2025 3:32 AM CDT Tanai Lott MD PhD LAB BLOOD ORDERABLES Fin al Result Performing Organization Address City/[facility]/ZIP Co de Phone Number [facility] Department [place] [address] * POCT glucose (05/15/2025 3:04 AM CDT) Glucose, POC 168 70 - 199 mg/dL Blood 05/15/2025 3:04 AM CDT 05/15/2025 3:04 AM CDT Tania Lott MD PhD LAB POCT ORDERABLES - DE VICE Final Result Performing Organization Address [facility] Co de Phone Number [facility] Department [place] [address] * (ABNORMAL) CBC with auto differential (05/15/2025 3:04 AM CDT) [facility] WBC 5.78 3.80 - 9.90 K/cumm Hgb 7.2(L) 13.0 - 17.5 g/dL [facility] Hct 20.6(L) 38.9 - 50.3 % [facility] Plt 5(C) 150 - 400 K/cumm [facility] Comment:This result has been called to carol lua rn by [email or web address] on 05/15/2025 03:53:50, and has been read back. no clot detected. This result has been called to carol lua rn by [id number] on 05/15/2025 03:53:34. MPV Not Measured 9.1 - 12.3 fL [facility] RBC 2.27(L) 4.30 - 5.80 M/cumm [facility] MCV 90.7 81.3 - 96.4 fL [facility] MCH 31.7 27.1 - 33.3 pg [facility] MCHC 35.0 32.3 - 35.7 g/dL [facility] RDW CV 20.0(H) 11.1 - 14.9 % [facility] RDW SD 63.5(H) 35.7 - 48.1 fL [facility] NRBC abs 4.34(H) 0.00 - 0.01 K/cumm [facility] Blood 05/15/2025 3:04 AM CDT 05/15/2025 3:26 AM CDT us Tania Lott MD PhD LAB BLOOD ORDERABLES Fin al Result [facility] Department [place] [address] * (ABNORMAL) Manual Differential (05/15/2025 3:04 AM CDT) Differential Manual Cells Counted 101 [facility] Neutrophil abs 5.61 1.50 - 6.50 K/cumm [facility] Monocyte abs 0.06(L) 0.20 - 0.80 K/cumm [facility] Neutrophil pct 97.0 % [facility] Comment: Interpretive Data Percent cell count reference ranges are not reported, since discordance with absolute values may lead to misinterpretation of CBC data. Current Interpretive Data was last revised on 2018. Monocyte pct 1.0 % [facility] Comment: Interpretive Data Percent cell count reference ranges are not reported, since discordance with absolute values may lead to misinterpretation of CBC data. Current Interpretive Data was last revised on 2018. Blast pct 2.0(C) 0.0 - 0.0 [facility] Comment:Critical value greene d within last 30 days. RBC morphology Present(A) [facility] Anisocytosis Moderate(A ) [facility] Macrocytes 3-7/HPF(A) [facility] Platelet estimate Decreased( A) [facility] Blood 05/15/2025 3:04 AM CDT 05/15/2025 3:34 AM CDT Tania Lott MD PhD LAB BLOOD ORDERABLES Fin al Result Performing Organization Address [facility] de Phone Number [facility] [place] [address] * (ABNORMAL) Uric acid (05/15/2025 3:04 AM CDT) Uric acid 2.3(L) 3.0 - 8.0 mg/dL Blood 05/15/2025 3:04 AM CDT 05/15/2025 3:24 AM CDT Tania Lott MD PhD LAB BLOOD ORDERABLES Fin al Result Performing Organization Address [facility] de Phone Number [facility] [place] [address] * (ABNORMAL) Phosphorus (05/15/2025 3:04 AM CDT) Phosphorus, pl 5.9(H) 2.3 - 4.5 mg/dL Blood 05/15/2025 3:04 AM CDT 05/15/2025 3:24 AM CDT Tania Lott MD PhD LAB BLOOD ORDERABLES Fin al Result Performing Organization Address [facility] [place] [address] * (ABNORMAL) Magnesium (05/15/2025 3:04 AM CDT) Magnesium 2.6(H) 1.4 - 2.5 mg/dL Blood 05/15/2025 3:04 AM CDT 05/15/2025 3:24 AM CDT Tania Lott MD PhD LAB BLOOD ORDERABLES Fin al Result [facility] [place] [address] * (ABNORMAL) Lactate dehydrogenase (LD) (05/15/2025 3:04 AM CDT) Lactate dehydrogenase (LDH) 2,475(H) 100 - 250 Units/L Comment:Repeated on Dilution Blood 05/15/2025 3:04 AM CDT 05/15/2025 3:24 AM CDT Tania Lott MD PhD LAB BLOOD ORDERABLES Fin al Result Performing Organization Address [facility] Co de Phone Number [facility] [place] [address] * (ABNORMAL) Hepatic function panel (05/15/2025 3:04 AM CDT) Bilirubin, total 0.6 0.1 - 1.2 mg/dL Bilirubin, direct 0.3 0.1 - 0.3 mg/dL [facility] Protein, pl 4.9(L) 6.5 - 8.5 g/dL [facility] Albumin 2.8(L) 3.5 - 5.0 g/dL [facility] Alk phos 52 40 - 130 Units/L [facility] ALT 14 7 - 55 Units/L [facility] AST 58(H) 10 - 50 Units/L [facility] Blood 05/15/2025 3:04 AM CDT 05/15/2025 3:24 AM CDT Tania Lott MD PhD LAB BLOOD ORDERABLES Fin al Result Performing Organization Address City/[facility]/ZIP Co de Phone Number [facility] [place] [address] * (ABNORMAL) Basic metabolic panel (05/15/2025 3:04 AM CDT) Pathologist [facility] Sodium 136 135 - 145 mmol/L Potassium, pl 4.9 3.3 - 4.9 mmol/L [facility] Chloride 99 97 - 110 mmol/L [facility] CO2 30 22 - 32 mmol/L [facility] Anion gap 7 2 - 15 mmol/L [facility] BUN 43(H) 6 - 25 mg/dL [facility] Creatinine 0.83 0.80 - 1.30 mg/dL [facility] Glucose 140 70 - 199 mg/dL [facility] Comment: Interpretive Data Fasting glucose >/= 126 [...] interpretive data was last revised 2022. Calcium 8.0(L) 8.5 - 10.3 mg/dL [facility] Blood 05/15/2025 3:04 AM CDT 05/15/2025 3:24 AM CDT us Tania Lott MD PhD LAB BLOOD ORDERABLES Fin al Result [facility] Department [place] [address] * POCT glucose (05/14/2025 11:50 PM CDT) Pathologist [facility] Glucose, POC 181 70 - 199 mg/dL Blood 05/14/2025 11:5 0 PM CDT 05/14/2025 11:50 PM CDT Tania Lott MD PhD LAB POCT ORDERABLES - DE VICE Final Result Performing Organization Address City/[facility]/ZIP Co de Phone Number [facility] [place] [address] * (ABNORMAL) POCT glucose (05/14/2025 8:30 PM CDT) Glucose, POC 219(H) 70 - 199 mg/dL Blood 05/14/2025 8:30 PM CDT 05/14/2025 8:30 PM CDT us Tania Lott MD PhD LAB POCT ORDERABLES - DE VICE Final Result Performing Organization Address [facility] Co de Phone Number ANGELA [facility] [place] [address] * eGFR (05/14/2025 4:40 PM CDT) eGFR >90 >=60 mL/min/1. 73 m2 [...] of Race in Diagnosing Kidney Disease, JASN 2020). The CKD-EPI equation should not be used for patients with unstable renal function and has not been validated in children and those over 70. Current interpretive data was last reviewed 2021. Blood 05/14/2025 4:40 PM CDT 05/14/2025 5:23 PM CDT us Erika Chandler DO LAB BLOOD ORDERABLES Final Resul t Performing Organization Address [facility] de Phone Number [facility] Department [place] [address] * (ABNORMAL) Uric acid (05/14/2025 4:40 PM CDT) Uric acid 1.6(L) 3.0 - 8.0 mg/dL Blood 05/14/2025 4:40 PM CDT 05/14/2025 5:06 PM CDT Narrative [facility] - 05/14/2025 5:54 PM CDT Q8hr [facility] labs Erika Chandler DO LAB BLOOD ORDERABLES Final Resul t Performing Organization Address [facility] de Phone Number [facility] Department [place] [address] * (ABNORMAL) Phosphorus (05/14/2025 4:40 PM CDT) Phosphorus, pl 4.8(H) 2.3 - 4.5 mg/dL Blood 05/14/2025 4:40 PM CDT 05/14/2025 5:06 PM CDT Erika Chandler DO LAB BLOOD ORDERABLES Final Resul t Performing Organization Address [facility] de Phone Number [facility] [place] [address] * (ABNORMAL) Lactate dehydrogenase (LD) (05/14/2025 4:40 PM CDT) Lactate dehydrogenase (LDH) 2,495(H) 100 - 250 Units/L Comment:Repeated on Dilution Blood 05/14/2025 4:40 PM CDT 05/14/2025 5:06 PM CDT us Tania Lott MD PhD LAB BLOOD ORDERABLES Fin al Result [facility] [place] [address] * (ABNORMAL) Basic metabolic panel (05/14/2025 4:40 PM CDT) Sodium 139 135 - 145 mmol/L Potassium, pl 4.3 3.3 - 4.9 mmol/L [facility] Chloride 106 97 - 110 mmol/L [facility] CO2 27 22 - 32 mmol/L [facility] Anion gap 6 2 - 15 mmol/L [facility] BUN 35(H) 6 - 25 mg/dL [facility] Creatinine 0.74(L) 0.80 - 1.30 mg/dL [facility] Glucose 121 70 - 199 mg/dL [facility] Comment: Interpretive Data Fasting glucose >/= 126 [...] interpretive data was last revised 2022. Calcium 7.1(L) 8.5 - 10.3 mg/dL [facility] Blood 05/14/2025 4:40 PM CDT 05/14/2025 5:06 PM CDT us Erika Chandler DO LAB BLOOD ORDERABLES Final Resul t Performing Organization Address [facility]/ZIP Co de Phone Number [facility] Department [place] [address] * POCT glucose (05/14/2025 4:16 PM CDT) Glucose, POC 162 70 - 199 mg/dL Blood 05/14/2025 4:16 PM CDT 05/14/2025 4:16 PM CDT Tania Lott MD PhD LAB POCT ORDERABLES - DE VICE Final Result Performing Organization Address [facility] Co de Phone Number [facility] Department [place] [address] * Flow Leukemia/Lymphoma Bone marrow (05/14/2025 12:49 PM CDT) Patel Stain Test Completed Leukemia/Lymp [place] Result See separate Surgical Pathology report. [facility] Bone marrow 05/14/2025 12:4 9 PM CDT 05/14/2025 1:51 PM CDT Elisabeth Cortes [employer] PATHOLOGY ORDERABLES Izzy l Result Performing Organization Address [facility] de Phone Number [facility] Department [place] [address] * Hematologic Molecular Algorithm Bone marrow (05/14/2025 12:49 PM CDT) Heme Molecular Algorithm Received Comment:05/17/2025 - HMA Com plete, no additional testing indicated. Bone marrow 05/14/2025 12:4 9 PM CDT 05/14/2025 2:13 PM CDT Narrative [facility] - 05/19/2025 9:46 AM CDT Select diagnosis - - Appropriate molecular tests will be performed based on histopathological diagnosis.->New Patient Elisabeth Cortes [employer] [facility] BODY FLUIDS AND STOOLS OR DERABLES Final Result Performing Organization Address [facility] Co de Phone Number [facility] [place] [address] * ChromoSeq - Heme Genetic Profiling (WGS) with interpretation Bone marrow (05/14/2025 12:44 PM CDT) Bone marrow (Bone Marrow Biopsy) 05/14/2025 12:44 PM CDT 05/17/2025 2:42 PM CDT Narrative [facility] - CYTOGENETICS - 05/22/2025 7:11 AM CDT [facility] Pathology Services [address] [place] [address] Final Report Patient Name: TAMMY WRIGHT Address: [address] [place] [address] Gender: M : 1965 (Age: 60) Accessioned: 05/17/2025 Taken: 05/14/2025 Received: 05/17/2025 Physician(s): Elsiabeth Cortes NP Service: [facility] IP Location: [place] [address] Hospital #: [id number] Patient Type: [facility] Inpatient ChromoSeq Molecular DiagnosticsReported:05/22/2025 Tissue type: Bone Marrow Stated Diagnosis: AML Diagnosis timepoint: New Diagnosis Treatment timepoint: New Diagnosis Transplant: None Prior history of MDS: No Prior history of cancer: No Blast Count: 27% WBC: 35.76 K/cumm Hgb: 7.0 g/dL Plt: 13 K/cumm Copy Number Alterations None detected Structural Variants None detected Gene Mutations SMC3 p.G667S VAF=49% FLT3 [id number]+2dup VAF=17% CEBPA p.N321D VAF=43% CEBPA p.D80Gfs*28 VAF=14% NCCN AML Risk Category: Intermediate IPSS-R MDS Cytogenetic Risk Category: NA Comment No copy number alterations or recurrent structural variants are identified, consistent with the corresponding fluorescence in situ hybridization studies ([id number]). In addition, two variants in CEBPA as well as a FLT3-ITD are detected, consistent with the diagnosis of a myeloid neoplasm. We note that the CEBPA p.N321D variant occurs in the CEBPA bZIP domain. While in-frame insertions and deletions in the CEBPA bZIP domain are associated with favorable-risk acute myeloid leukemia (AML), missense variants in the bZIP domain are less common and not clearly associated with favorable-risk disease (PMID: 11047568). This case is best classified as AML, not otherwise specified by International Consensus Classification (ICC) criteria. The overall constellation of variants is consistent with intermediate-risk AML per National Comprehensive Cancer Network (NCCN) guidelines. We note that the SMC3 p.G667S variant is observed near heterozygous allelic fraction and is also seen in the global population at low levels, which suggest it may represent a germline variant. Cameron Díaz MD, PhDReport Electronically Reviewed and Signed Out By Cameron Díaz MD, PhD 05/22/2025 07:08:55 us Elisabeth Cortes [employer] PATHOLOGY ORDERABLES Izzy delarosa Result [facility] - CYTOGENETICS [address] [place] [address] * Diagnosis MyeloSeq Heme NGS Panel with Interpretation Bone marrow (05/14/2025 12:44 PM CDT) Bone marrow (Bone Marrow Biopsy) 05/14/2025 12:44 PM CDT 05/17/2025 2:42 PM CDT Narrative [facility] - CYTOGENETICS - 05/28/2025 9:32 AM CDT [facility] Pathology Services [address] [place] [address] Final Report Patient Name: TAMMY WRIGHT Address: [address] [place] [address] Gender: M : 1965 (Age: 60) Accessioned: 05/17/2025 Taken: 05/14/2025 Received: 05/17/2025 Physician(s): Elisabeth Cortes NP Service: [facility] Location: [place] [address] Hospital #: [id number] Patient Type: [facility] Inpatient MyeloSeq Molecular DiagnosticsReported:05/28/2025 Varients Detected: GENE EXON VARIANT PROTEIN CHANGE VAF CLINICAL SIGNIFICANCE* PREVIOUSLY DETECTED SMC3 19 MISSENSE G667S 47% POSSIBLY GERMLINE NO FLT3 N/A SPLICE REGION ITD 3% POTENTIALLY THERAPEUTIC NO CEBPA 1 MISSENSE N321D 38% PATHOGENIC NO CEBPA 1 FRAMESHIFT D80Gfs*28 9% PATHOGENIC NO*Please see below for variant classification category details The following prior mutations were not detected: None No mutations were detected in the following sequenced genes and hotspots: ASXL1, BCOR, BCORL1, BRAF, CALR, CBL, CHEK2, CSF3R, CUX1, DDX41, DNMT3A, ETNK1, ETV6, EZH2, GATA1, GATA2, GNB1, IDH1, IDH2, JAK2, KIT, KMT2A, KRAS, MPL, MYC, NF1, NOTCH1, NPM1, NRAS, PHF6, PIGA, PPM1D, PRPF8, PTPN11, RAD21, RUNX1, SETBP1, SF3B1, SMC1A, SRSF2, STAG2, STAT3, STAT5B, SUZ12, TET2, TP53, U2AF1, UBA1, UBTF, WT1, ZRSR2 Variant Interpretation: Two variants in CEBPA as well as a FLT3-ITD are detected, consistent with the diagnosis of a myeloid neoplasm. We note that the CEBPA p.N321D variant occurs in the CEBPA bZIP domain. While in-frame insertions and deletions in the CEBPA bZIP domain are associated with favorable-risk acute myeloid leukemia (AML), missense variants in the bZIP domain are less common and not clearly associated with favorable-risk disease (PMID: 20536103). This case is best classified as AML, not otherwise specified by International Consensus Classification (ICC) criteria. The overall constellation of variants is consistent with intermediate-risk AML per National Comprehensive Cancer Network (NCCN) guidelines. We note that the SMC3 p.G667S variant is observed near heterozygous allelic fraction and is also seen in the global population at low levels, which suggest it may represent a germline variant. Clinical History: 60-year-old man, who is currently admitted with leukocytosis. 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 Corresponding cytogenetic studies ([id number]) show no evidence of clonal aberrations. Corresponding ChromoSeq study ([id number]) shows variants in CEBPA, FLT3, and SMC3. Specimen site: Bone marrow Variant Detail: Gene Location (GRCh38) Reference allele Variant allele Transcript:Coding change Population Frequency* SMC3 chr10:[id number] G A [id number]:c.1998G>A none FLT3 chr13:[id number] T TACCAAACTCTAAATTTTCTCTTGGAAACTCCCATTTGAGATCATATTCATATTCTCTGAAATCAACGTA [id number]:c.1771_1837+2dup none CEBPA chr19:[id number] T C [id number]:c.961A>G none CEBPA chr19:05861020 T TC [id number]:c.238dup none*The population allele frequency represents the maximum observed allele frequency in a diverse set of worldwide populations. QC Data: The following hotspots passed sequencing QC metrics: BRAF (codon 600), CALR (codon 9), CEBPA (codon domain), DNMT3A (codon 882), FLT3 (codons 835,569-613), IDH1 (codon 132), IDH2 (codons 140,172), JAK2 (codon 617), KIT (codon 816), KRAS (codons 61,12-13), MPL (codon 515), NPM1 (codons 287-288), NRAS (codons 61,12-13), SF3B1 (codons [phone]), SRSF2 (codons 95,103), TP53 (codons 238,248,273,275), U2AF1 (codons 34,157), UBA1 (codon 41) The following target genes failed minimum sequencing QC metrics (>=95% of positions >=250x): no genes failed QC Myeloseq Assay Version 3.0 This laboratory developed test (LDT) was developed and its performance characteristics determined by the CLIA Licensed Environment laboratory at the [facility] at [facility] ([facility], CLIA #[id number], CAP #[id number]), Dr. Chavo Horta MD, PhD, FCAP, Clinical Program Coordinator. [address] [place] [address], [address] [address] . The [facility] laboratory is regulated under CLIA as certified to perform high-complexity testing. Interpretation of sequencing results and case sign out is performed by Pathology and Immunology faculty in the Division of Genomic and Molecular Pathology (-Clinical Genomics Laboratory, CLIA #[id number], CAP #[id number]) Dr. Claire Danielson Ph.D., Clinical Program Coordinator. Clinical Genomics Laboratory, [facility], [address], [place] [address] [phone] The [facility] Laboratory is regulated under CLIA as certified to perform high-complexity testing. This test has not been cleared or approved by the FDA. This test uses hybridization capture-based enrichment that incorporates unique molecular identifiers (LORRIE) coupled with Illumina-based next generation sequencing. A total of 54 genes and hotspots (partial genes) are targeted by the assay using approximately 30GBases of sequencing data generated on an Teamly Plus. This test has been validated according to CAP guidelines for the detection of single nucleotide variants (SNVs) and indels (max validated size 117bp). This assay has two limits of detection: for new variants (not previously reported by [employer]) sensitivity is limited to 2% VAF; for previously reported variants the sensitivity is >95% for variants with VAFs >0.1%. The actual limit of detection (LOD) for known variants is limited by coverage at the sequenced position. This test does not use paired normal (germline) DNA to determine the somatic status of detected variants; somatic status for detected variants is inferred if the maximum observed allele frequency in a diverse set of worldwide populations is <0.1%. Common population polymorphisms (SNPs) are not reported by this assay and this assay does not distinguish rare inherited (constitutional variants) from somatic variants; should there be sufficient clinical concern for a constitutional cancer-associated mutation, please contact the laboratory for additional testing information. All variants are reported using HGVS nomenclature based on GRCh38 genomic coordinates. Transcripts are reported using the most canonical reference. Variants detected by this assay are classified into one of the following five categories: 1. Potentially therapeutic: target or biomarker for FDA-approved therapies. 2. Pathogenic: recurrent finding in high-quality peer-reviewed studies or meets the criteria for disease-related somatic mutation by NCCN guidelines. 3. Possibly germline: possibly germline variant based on VAF and population frequency; this assay is not designed to detect germline variants; confirmatory germline testing is required to determine the origin of any reported variant. Note: in the post-transplant setting, possibly germline variants are subclassified as possibly germline, recipient-derived or possibly germline, donor-derived based on comparison to historical results, if available. 4. Possibly donor-derived: detected after stem cell transplant in an engrafted patient but not present in pre-transplant studies, most consistent with donor- derived clonal hematopoiesis. 5. Uncertain significance: does not meet any of the above criteria and is therefore of uncertain clinical significance. Molecular testing using these methods is expected to be accurate. However, the chance of a false positive or false negative result due to laboratory errors incurred during any phase of testing cannot be completely excluded. [facility] does not have control over the quantity, quality or provenance of specimens originating from outside institutions. Accordingly, [facility] disclaims any and all responsibility and liability arising from a false positive or false negative result that may arise from an insufficient quantity of specimen, poor specimen quality, or contamination of specimen. This Report was generated using the materials and methods described above, which required the use of various reagents, protocols, instruments, software, databases, and other items, some of which were provided or made accessible by third parties. A defect or malfunction in any such reagents, protocols, instruments, software, databases, and/or other items may compromise the quality or accuracy of the Report. The Report has been created based on, or incorporates references to, various scientific manuscripts, references, and other sources of information, including without limitation manuscripts, references, and other sources of information that were prepared by third parties that describe correlations between certain genetic mutations and particular diseases (and/or certain therapeutics that may be useful in ameliorating the effects of such diseases). Such information and correlations are subject to loom changer time in response to future scientific and medical findings. makes no representation or warranty of any kind, expressed or implied, regarding the accuracy of the information provided by or contained in such manuscripts, references, and other sources of information. If any of the information provided by or contained in such manuscripts, references, and other sources is later determined to be inaccurate, the accuracy and quality of the Report may be adversely impacted. is not obligated to notify you of any impact that future scientific or medical research findings may have on the Report. The Report must always be interpreted and considered within the clinical context, and a physician should always consider the Report along with all other pertinent information and data that a physician would prudently consider prior to providing a diagnosis to a patient or developing and implementing a plan of care for a patient. The Report should never be considered or relied upon alone in making any diagnosis or prognosis. The manifestation of many diseases are caused by more than one gene variant, a single gene variant may be relevant to more than one disease, and certain relevant gene variants may not have been considered in the Report. In addition, many diseases are caused or influenced by modifier genes, epigenetic factors, environmental factors, and other variables that are not addressed by the Report (or that are otherwise unknown). As such, the relevance of the Report should be interpreted in the context of a patient's clinical manifestations. The Report provided by [facility] is provided on an IS basis. [facility] makes no representation or warranty of any kind, expressed or implied, regarding the Report. In no event shall [facility] be liable for any actual damages, indirect damages, and/or special or consequential damages arising out of or in any way connected with the Report, your use of the Report, your reliance on the Report, or any defect or inaccurate information included within the Report. Cameron Díaz MD, PhDReport Electronically Reviewed and Signed Out By Cameron Díaz MD, PhD 05/28/2025 09:30:25 Elisabeth Cortes NP LAB PATHOLOGY ORDERABLES Izzy delarosa Result Performing Organization Address City/State/[facility] Co de Phone Number [facility] - CYTOGENETICS [address] [place] [address] * Cytogenetics Bone marrow (05/14/2025 12:43 PM CDT) Bone marrow (Bone Marrow Biopsy) 05/14/2025 12:43 PM CDT 05/14/2025 12:43 PM CDT Narrative [facility] - CYTOGENETICS - 05/27/2025 6:37 PM CDT EPIC results best viewed via link to PDF [facility] Department of Pathol [address] [place] [id number] Patient Information Name: TAMMY WRIGHT Gender: Michael : 1965 (Age: 60) Tissue: Bone Marrow w/ FISH Visit Information Hospital #: [id number] Facility: [facility] Service: [facility] Location: [place] [address] Patient Type: [facility] Inpatient Specimen Information: Culture #: [id number] Date Collected: 05/14/2025 Date Accessioned: 05/14/2025 Date Ordered: 05/14/2025 Physician(s): Tania Lott M.D. Processin hours unstimulated Indication: Leukocytosis; new AML Specimen Quality: Low cell count Adequate: FISH Adequate: Chromosome analysis CLINICAL REPORT CHROMOSOME ANALYSIS Metaphases Counted: 20 Banding Technique: GTW Colonies Counted: Metaphases Analyzed: 20 Additional Method: FISH Number of Cultures: 1 Metaphases Karyotyped: 3 Banding Resolution: 400 Subculture: Karyotype: 46,XY[20].nuc fred (MECOM)x2[200],(EGR1)x2[200],(N1L206)x2[200],(EAND4M2,RUNX1)x2[200],(ASS1,ABL1,B CR)x2 [200], (KMT2A)x2[200],(PML,OLI)x2[200],(CBFB)x2[200] Diagnosis: CHROMOSOME ANALYSIS: NO EVIDENCE OF CLONAL ABERRATIONS FISH FINDINGS: NO EVIDENCE OF DELETION/MONOSOMY OF EGR1 (5q) OR H2D979 (7q) NO EVIDENCE OF MECOM, BCR::ABL1, PML::OLI, CBFB, KMT2A OR JWMG6Y7::RUNX1 REARRANGEMENT INTERPRETATION: No clonal cytogenetic aberrations were identified in metaphase cells analyzed from an unstimulated culture. This normal result does not exclude a neoplastic proliferation. Small chromosome anomalies may not be detectable using the standard methods employed. Chromosome analysis was performed at a level of 400 bands or greater. These chromosome findings must be interpreted within the context of the pathologic and clinical findings. Follow-up evaluation is recommended. Professional component performed by Iliana Rachel, Ph.D., [facility], [address], [place], [place] (CLIA #: [id number]). Chromosome analysis and Fluorescence In Situ Hybridization (FISH) analysis are performed using the BPT CytoContapps Imaging System. Report Electronically Reviewed and Signed Out By Iliana Rachel, PhDDate Reported: 05/27/2025 FLUORESCENCE IN-SITU HYBRIDIZATION [FISH] Karyotype: nuc fred (MECOM)x2[200],(EGR1)x2[200],(S8A460)x2[200],(USLW4I3,RUNX1)x2[200],(ASS1,ABL1,B CR)x2 [200], (KMT2A)x2[200],(PML,OLI)x2[200],(CBFB)x2[200] Diagnosis: FISH FINDINGS: NO EVIDENCE OF DELETION/MONOSOMY OF EGR1 (5q) OR W6T173 (7q) NO EVIDENCE OF MECOM, BCR::ABL1, PML::OLI, CBFB, KMT2A OR ELMU7Q3::RUNX1 REARRANGEMENT INTERPRETATION: FISH analysis was performed with a panel of [employer] and [employer] probes for AML and is interpreted as NORMAL. 1) FISH evaluation for an MECOM (EVI1) rearrangement was performed on nuclei with the MECOM Dual Color, Break Apart Rearrangement Probe ([employer]) at 3q26 and is interpreted as NORMAL. No rearrangement was observed in 199/200 nuclei, which is within the normal range established for this probe in the Clinical Genomics Laboratory at [facility]. Up to 1% of cells in normal samples can show an apparent MECOM rearrangement using this probe. A normal MECOM FISH finding can result from the absence of a MECOM rearrangement, from a variant MECOM rearrangement or from an insufficient number of neoplastic cells in the specimen. 2) FISH evaluation for a 5q deletion was performed on nuclei with the EGR1,C5A344/B4F0524 Dual Color Probe ([employer] for EGR1 at 5q31.1 and the control P4C546/H0G8406 at 5p15.31 and is interpreted as NORMAL. Two EGR1 hybridization signals and two W8N808/R4U8381 control hybridization signals were observed in 200/200 nuclei, which is within the normal range established for this probe in the Clinical Genomics Laboratory at [facility]. Up to 3.1% of cells in normal samples can show an apparent 5q deletion using this probe. A normal EGR1 FISH finding can result from the absence of a 5q deletion, from a 5q deletion that does not involve the region to which this probe hybridizes or from an insufficient number of neoplastic cells in the specimen. 3) FISH evaluation for a 7q deletion was performed on nuclei with the LSI X9B803/D7Z1 Dual Color Probe ([employer] for P0M787 at 7q31 and the control D7Z1 at 7p11.1-q11.1 and is interpreted as NORMAL. Two H7F354 hybridization signals and two D7Z1 control hybridization signals were observed in 200/200 nuclei, which is within the normal range established for this probe set in the Clinical Genomics Laboratory at [facility]. Up to 1% of cells in normal samples can show an apparent 7q deletion using this probe. A normal Z6B186 FISH finding can result from the absence of a 7q deletion, from a 7q deletion that does not involve the region to which this probe hybridizes or from an insufficient number of neoplastic cells in the specimen. 4) FISH evaluation for a OOCO6V6::RUNX1 rearrangement was performed on nuclei with the LSI JJQL3W6::RUNX1 Dual Color, Dual Fusion Translocation Probe ([employer] for VALN6T3 (ETO) at 8q22 and RUNX1 (AML1) at 21q22 and is interpreted as NORMAL. No rearrangement was observed in 198/200 nuclei, which is within the normal range established for this probe in the Clinical Genomics Laboratory at [facility]. Variant signal pattern was observed in 2/200 nuclei. Up to 5% of cells in normal samples can show random overlap of XVYY5F5::RUNX1 probes and additional nuclei may show extra or missing signals. A normal EUZQ9K2::RUNX1 FISH finding can result from the absence of an CORJ6Q5::RUNX1 rearrangement, from a variant WCBM7N1::RUNX1 rearrangement or from an insufficient number of neoplastic cells in the specimen. 5) FISH evaluation for a BCR::ABL1 rearrangement was performed on nuclei with the LSI BCR::ABL1 Tricolor, Dual Fusion Translocation Probe ([employer] for ASS1/ABL1 at 9q34 and BCR at 22q11.2 and is interpreted as NORMAL. No rearrangement was observed in 193/200 nuclei, which is within the normal range established for this probe in the Clinical Genomics Laboratory at [facility]. Variant signal pattern was observed in 7/200 nuclei. Up to 8.5% of cells in normal samples can show random overlap of BCR::ABL1 probes and additional nuclei may show extra or missing signals. A normal BCR::ABL1 FISH finding can result from the absence of a BCR::ABL1 rearrangement, from a variant BCR::ABL1 rearrangement or from an insufficient number of neoplastic cells in the specimen. 6) FISH evaluation for an KMT2A (MLL) rearrangement was performed on nuclei with the LSI KMT2A Dual Color, Break Apart Rearrangement Probe ([employer] at 11q23 and is interpreted as NORMAL. No rearrangement was observed in 199/200 nuclei, which is within the normal range established for this probe in the Clinical Genomics Laboratory at [facility]. Up to 1% of cells in normal samples can show an apparent KMT2A rearrangement using this probe. A normal KMT2A FISH finding can result from the absence of an KMT2A rearrangement, from a variant KMT2A rearrangement or from an insufficient number of neoplastic cells in the specimen. 7) FISH evaluation for a PML::OLI rearrangement was performed on nuclei with the LSI PML::OLI Dual Color, Dual Fusion Translocation Probe ([employer] for PML at 15q24 and OLI at 17q21 and is interpreted as NORMAL. No rearrangement was observed in 197/200 nuclei, which is within the normal range established for this probe in the Clinical Genomics Laboratory at [facility]. Variant signal pattern was observed in 3/200 nuclei. Up to 13% of cells in normal samples can show random overlap of PML::OLI probes and additional nuclei may show extra or missing signals. A normal PML::OLI FISH finding can result from the absence of a PML::OLI rearrangement, from a variant PML::OLI rearrangement or from an insufficient number of neoplastic cells in the specimen. 8) FISH evaluation for a CBFB rearrangement was performed on nuclei with the LSI CBFB Dual Color, Break Apart Rearrangement Probe ([employer] at 16q22 and is interpreted as NORMAL. No rearrangement was observed in 200/200 nuclei, which is within the normal range established for this probe in the Clinical Genomics Laboratory at [facility]. Up to 2% of cells in normal samples can show an apparent CBFB rearrangement using this probe. A normal CBFB FISH finding can result from the absence of a CBFB rearrangement, from a variant CBFB rearrangement or from an insufficient number of neoplastic cells in the specimen. The FISH findings must be interpreted within the context of the pathologic and clinical findings. Follow-up evaluation is recommended. Chromosome analysis is pending and will be reported separately. This test was developed and its performance characteristics determined by [facility]. It has not been cleared or approved by the FDA. The laboratory is regulated under CLIA as qualified to perform high-complexity testing. This test is used for clinical purposes. It should not be regarded as investigational or for research. Chromosome analysis and Fluorescence In Situ Hybridization (FISH) analysis are performed using the BPT Cyto[employer]apps Imaging System. Report Electronically Reviewed and Signed Out By Kelton Temple, PhD, FACMGDate Reported: 05/17/2025ssistant Professor, Division of Genomic & Molecular Pathology us Elisabeth Cortes [employer] [facility] GENETIC TESTING Final Res ult [facility] - CYTOGENETICS [address] [place] [address] * (ABNORMAL) POCT glucose (05/14/2025 11:05 AM CDT) Glucose, POC 221(H) 70 - 199 mg/dL Comment:Glu2: RN/MD Notified Glucose comment 1 Glu2: RN/MD Notified [facility] Blood 05/14/2025 11:0 5 AM CDT 05/14/2025 11:05 AM CDT us Tania Lott MD PhD LAB POCT ORDERABLES - DE VICE Final Result Performing Organization Address City/[facility] Co de Phone Number [facility] Department [place] [address] * Surgical pathology (05/14/2025 10:07 AM CDT) Biopsy (Bone Marrow Biopsy) 05/14/2025 10:07 AM CDT 05/14/2025 1:44 PM CDT Narrative PATHOLOGY [facility] - 05/17/2025 2:55 PM CDT EPIC results best viewed via link to PDF [facility] [place] [address] Note to Patients: This report may contain a detailed description of human tissue sent by a health care provider to the laboratory for pathologic evaluation. The content of this report is essential for diagnosis and may provide important critical findings. This information may be unfamiliar to patients to review without a medical professional present. It is advised that the patient review this report in the presence of a health care provider who can answer questions and explain the details. SURGICAL PATHOLOGY REPORT FINAL WITH ADDENDUM Patient Name: TAMMY WRIGHT Gender: M : 1965 (Age: 60) Address: [address] [place] [address] Hospital #: [id number] Taken:05/14/2025 Received:05/14/2025 Reported: 05/17/2025 Patient Type: [facility] Inpatient Service: BoneMarTranspl Location: [place] [address] Physician(s): Elisabeth Cortes NP Diagnosis: Bone marrow, right posterior iliac crest, core biopsy, clot, and aspirate: - Acute myeloid leukemia - See flow cytometry addendum and comment tawi/05/17/2025 13:07 By this signature, I attest that the above diagnosis is based upon my personal examination of the slides(and/or other material indicated in the diagnosis). Tony Garcia M.D. Report Electronically Reviewed and Signed Out By Tony Garcia M.D. 05/17/2025 14:55:47 Diagnosis Comment This result was flagged as significant and was sent to [employer] Elisabeth cortes via email on 05/17/2025 @ 3 pm. Reason(s): To the best of our knowledge, this is the first diagnosis of this type of malignancy rendered for this patient. For details on the peripheral blood smear (if submitted), bone marrow aspirate, and core biopsy, please see the attached synoptic report. If applicable, correlation with concurrent flow cytometry (Addenda/Procedures below), cytogenetics/FISH, and molecular studies is suggested for full evaluation. Microscopic Description and Comment: Microscopic examination substantiates the above cited diagnosis. Cytochemical stain for NBE is negative in the blast population. Cytochemical stain for MPX is positive in blast population. Maddie Toledo M.D., P.h.D. History: The patient is a 60-year-old man presenting with leukocytosis. Operative procedure: Bone marrow biopsy. Specimen(s) Received: A: Bone marrow biopsy, right posterior iliac crest B: Bone Marrow Clot - BJ C: Bone marrow, right aspirate for flow cytometry Gross Description: Received in two formalin jars labeled with the patient's identifiers. A. Received in formalin, labeled SOFY core and consists of two red cores of bone with attached hemorrhagic material measuring 0.7 cm each in length by 0.3 cm in diameter. Labeled A1. EDTA decalcification.. Jar 0. B. Received in formalin, labeled SOFY clot and consists of a 2.7 x 1.3 x 0.3 cm fragment of hemorrhagic material. Filtered. Labeled B1. Jar 0. sxst/05/14/2025 14:04 PA(s): Zelda Young CBC: Date: 05/14/25 WBCs: 35.76x10^3/mcl Hemoglobin: 7.0g/dl Hematocrit: 19.7% Platelets: 13x10^3/mcl Mean corpuscular volume (MCV): 92.9fl Red cell distribution width (RDW-CV): 19.8% Peripheral blood smear (Patel-Giemsa): White Blood Cells: circulating blasts The peripheral blood morphology reflects the CBC values. leukoerythroblastic Bone marrow aspirate smear (Patel-Giemsa stain): Quality: Adequate Spicules: Present Marrow cellularity: Increased Myeloid maturation: Increased blasts Erythroid maturation: Nuclear to cytoplasmic maturation dyssynchrony Myeloid/Erythroid Ratio: Increased Megakaryocyte number: Decreased Lymphocytes: Normal Iron: Gale Score 0-2 (Decreased). Gale score is a grading method for interpretation of bone marrow iron stain and provides an assessment of total bone marrow iron stores. No ring sideroblasts present Differential count: Total # of Cells Counted:200 Blasts: 27 Promyelocytes: 1 Myelocytes+Metamyelocytes:2 Bands+Neutrophils:10 Eosinophils: 9 Basophils: 0 Plasma cells: 2 Monocytes: 1 Erythroids: 42 Bone marrow core biopsy (decalcified, H&E and Leder stains): Right, iliac crest Quality: Adequate Cellularity: 80% Myeloid maturation: Left-shifted, Increased Leder-negative mononuclear cells, consistent with blasts Erythroid maturation: Left-shifted The Leder stain shows that the Myeloid/Erythroid Ratio is: Within normal limits Megakaryocyte number: Decreased Megakaryocytic maturation: Normal The Leder stain is used to assess for lymphoid aggregates: None Reticulin and Trichrome stains show: Mild fibrosis (MF-1) CLOT SECTION: The bone marrow clot section including Leder and H&E stains are: Consist of clotted blood with minimal evaluable marrow By this signature, I attest that the above diagnosis is based upon my personal examination of the slides(and/or other material). Addenda/Procedures Flow Cytometry Ordered:05/14/2025Status:Signed OutFlow Cytometry Complete:05/17/2025y:Tony Garcia M.D.Flow Cytometry Signed Out: 05/17/2025 Diagnosis Bone marrow, right aspirate for flow cytometry: - Increased myeloblast population detected (38% of total events) Comment Specimen quality: Adequate Flow cytometry identifies an immunophenotypically abnormal blast population that is consistent with myeloid differentiation comprising 38% of total cellular events. The high percentage of myeloblasts is consistent with an acute myeloid leukemia. Antigens expressed are: CD45 (dim), CD7 (subset), CD13, HLA-DR, CD123, CD117, CD33, CD38, HLA-DR, CD4 (dim, subset) Antigens not expressed are: CD16, CD10, CD64, CD34, CD14, CD11b, CD15, CD19, [place], Lambda, CD10, CD5, CD200, CD20, CD19, TCRgd, CD2, CD56, CD5, CD8, CD3, uhJW31y, TdT, cyCD3, cyCD22, cyCD1 Targetable AntigenExpression (%)Expression (Intensity)[id number]: Immunotherapy can interfere with antigen detection in this assay. Correlation with clinical history is required. All antigen expression measurements are surface unless noted otherwise. Correlation with morphology (if submitted), cytochemistry, clinical, laboratory, and genetic findings is required for definitive diagnosis and classification. A Patel-Giemsa stained cytospin from the flow cytometry specimen was examined for internal quality assurance project manager purposes. Flow cytometry was performed using antibodies to the following cellular antigens: CD45, CD34, CD19, CD20, [place], Lambda, CD10, CD5, CD200, CD38, CD2, CD3, CD4, CD7, CD8, CD56, TCR-GD, CD16, CD13, CD14, CD64, HLA-DR, CD11b, CD15, CD123, CD117, CD33. Total antigens analyzed: 27 Additional flow cytometry was performed to further characterize potential blasts using antibodies to the following cellular antigens: CD45, TdT, CD1, CD3, CD22, CD79a. Total antigens analyzed: 6 By this signature, I attest that the above diagnosis is based upon my personal examination of the slides(and/or other material indicated in the diagnosis). Tony Garcia M.D.Report Electronically Reviewed and Signed Out By Tony Garcia M.D. 05/17/2025 14:48:22Maddie Toledo M.D., P.h.Trista. Addendum Ordered:05/18/2025Status:Signed OutAddendum Complete:05/18/2025y:Tony Garcia M.D.Addendum Signed Out:05/18/2025 Addendum Comment This addendum is issued to report results of p53 stain by immunohistochemistry . There is no change to final diagnosis. p53 is positive in ~40% of the cells. p53 immunohistochemistry is a rapid surrogate marker for TP53 gene mutation status. Studies performed in our laboratory demonstrate that TP53 staining in => 20% of cells has an 86% sensitivity and 90% specificity for detection of TP53 mutation(s). It is recommended that immunohistochemical results be confirmed by DNA sequencing. By this signature, I attest that the above diagnosis is based upon my personal examination of the slides(and/or other material indicated in the diagnosis). Tony Garcia M.D.Report Electronically Reviewed and Signed Out By Tony Garcia M.D. 05/18/2025 13:04:15 The performance characteristics of some immunohistochemical stains, fluorescence in-situ hybridization tests and immunophenotyping by flow cytometry cited in this report (if any) were determined by the Surgical Pathology and Flow Cytometry Departments at [facility] as part of an ongoing quality checker program and in compliance with federally mandated regulations drawn from the Clinical Laboratory Improvement Act of 1988 (CLIA '88). Some of these tests rely on the use of analyte specific reagents and are subject to specific labeling requirements by the US Food and Drug Administration. Such diagnostic tests may only be performed in a facility that is certified by the Department of Health and Human Services as a high complexity laboratory under CLIA '88. The FDA has determined that such clearance or approval is not necessary. This test is used for clinical purposes. It should not be regarded as investigational or for research. Nevertheless, federal rules concerning the medical use of analyte specific reagents require that the following disclaimer be attached to the report: This test was developed and its performance characteristics determined by the Surgical Pathology and Flow Cytometry Departments of [facility]. It has not been cleared or approved by the U. S. Food and Drug Administration. IMAGES AND SCANNED DOCUMENTS, IF INCLUDED, ONLY VIEWABLE IN PDF VERSION OF REPORT Elisabeth Cortes [employer] PATHOLOGY ORDERABLES Izzy l Result Performing Organization Address [facility] Co de Phone Number PATHOLOGY [facility] 3rd Floor [place], [place] [phone] * Transfuse RBC (05/14/2025 9:08 AM CDT) Blood Tania Lott MD PhD BLOOD TRANSFUSION ORDERA BLES Final Result Performing Organization Address [facility] Co de Phone Number ANGELA [facility] Department [place] [address] * POCT glucose (05/14/2025 8:38 AM CDT) Pathologist [facility] Glucose, POC 175 70 - 199 mg/dL Blood 05/14/2025 8:38 AM CDT 05/14/2025 8:38 AM CDT Tania Lott MD PhD LAB POCT ORDERABLES - DE VICE Final Result Performing Organization Address [facility] de Phone Number [facility] Department [place] [address] * TRANSTHORACIC ECHO (TTE) COMPLETE W DOPPLER/CF WO CONTRAST (05/14/2025 8:19 AM CDT) Pathologist [facility] EF Mod BP 71 % CONS SCIMAGE Anatomical Region Laterality Modality Ultrasound 05/14/2025 7:35 AM CDT Narrative 05/14/2025 8:51 AM CDT [facility] [place] [address] Transthoracic Echocardiographic Report Patient Name: TAMMY WRIGHT : 1965 (60y 1m) Gender: M Study Date: 05/14/2025 07:35:21 AM Ht(Inch): 71 Wt(Lb): 186.07 BSA: 2.06 Nutrition And Dietetics Instructor: Michael Carr [facility] Location: [id number] Order Provider: ERIKA CHANDLER Heart Rate: 65 BMI: 25.95 BP: 106 / 57 Ref Provider: ERIKA CHANDLER PROCEDURES: Echocardiographic Report: Transthoracic complete echo with strain imaging, 2D, spectral and tissue Doppler, color flow Doppler, M-mode. INDICATIONS: High Risk Meds, Acute Myeloid Leukemia. CONCLUSIONS: 1. Mildly dilated left ventricle based on volume index. Normal LV wall thickness. Normal left ventricular systolic function. The Ejection Fraction (Harris's) is measured at 71 %. Normal diastolic function. The average global longitudinal strain is normal. 2. Right ventricular dilatation. Normal right ventricular systolic function. Wire noted in the right heart. TV S'=0.15 m/s (normal function). 3. The estimated pulmonary artery systolic pressure is 20.0 mmHg. No pulm HTN. ATTESTATION: I have personally reviewed and interpreted this study without fellow or resident. - DISCLAIMER: The study images and the final report will be retained in the patient chart by the Echo Laboratory for the legally required time period. This chart constitutes the legal record of any testing performed. FINDINGS: Left Ventricle: Mildly dilated left ventricle based on volume index. Normal LV wall thickness. Normal left ventricular systolic function. The Ejection Fraction (Harris's) is measured at 71 %. Normal diastolic function. The average global longitudinal strain is normal. The LV global strain is: -23.4 %. Right Ventricle: Right ventricular dilatation. Normal right ventricular systolic function. Wire noted in the right heart. TV S'=0.15 m/s (normal function). Left Atrium: Mildly dilated left atrium. Right Atrium: The right atrium is normal in size. Mitral Valve: Normal mitral valve structure. Mild mitral valve regurgitation. Aortic Valve: Normal trileaflet aortic valve. No aortic regurgitation. The mean transaortic gradient is 5 mmHg. The aortic valve area by the continuity equation (using VTI) is 2.86 cm2. Aortic valve dimensionless index is 0.88. Tricuspid Valve: Normal tricuspid valve structure. Mild tricuspid regurgitation. The estimated pulmonary artery systolic pressure is 20.0 mmHg. No pulm HTN. Pulmonic Valve: Normal pulmonic valve structure. Moderate pulmonic regurgitation. Pericardium: Normal pericardium without pericardial effusion. Aorta: Normal aortic root size at sinuses of Valsalva. Normal aortic root size when indexed. The ascending aorta is normal in size when indexed. IVC: The IVC was <2.1 cm and collapsibility >50%. (est. RA pressure 0-5 mmHg). MEASUREMENTS: 2D/MM Value Range Doppler Value Range LVIDd 2D 4.85 cm [ 4.20 - 5.80 ] AV Peak Kj 1.5 m/s [ 1.0 - 1.7 ] LVIDs 2D 2.93 cm [ 2.50 - 4.00 ] AV Peak PG 9.00 mmHg IVSd 2D 1.00 cm [ 0.60 - 1.00 ] AV Mean PG 5 mmHg LVPWd 2D 1.00 cm [ 0.60 - 1.00 ] AV VTI 32.9 cm LV Thickness Ratio 1.0 LVOT Peak Kj 1.3 m/s [ 0.7 - 1.1 ] LV FS 2D 39.61 % [ 25.00 - 43.00 ] LVOT Peak PG 6.76 mmHg LV Mass 2D 176.75 g LVOT Mean PG 3 mmHg LV Mass Index 2D 85.96 g/m2 LVOT VTI 28.8 cm RWT 0.41 LVOT Diam 2.04 cm EDV Mod BP 160.39 ml [ 62.00 - 150.00 ] GAEL VTI 2.86 cm2 LV EDV Index 78.00 ml/m2 LVOT/AV VTI 0.88 - Dimensionless index (DVI) ESV Mod BP 47.27 ml [ 21.00 - 61.00 ] MV E Peak Kj 1.0 m/s [ 0.6 - 1.3 ] EF Mod BP 71 % [ 52 - 72 ] MV A Peak Kj 0.9 m/s [ 1.0 - 1.2 ] LV GLS -23.4 % [ -25.0 - -18.0 ] MV E/A 1.1 ratio [ 0.8 - 1.5 ] LA Length 4C 5.73 cm MV Decel Time 173.56 msec [ 104.00 - 258.00 ] LA Length 2C 5.83 cm Med E` Kj 10.2 cm/sec [ 8.0 - 25.0 ] LA Volume BP 82.29 ml Lat E` Kj 14.6 cm/sec [ 10.0 - 25.0 ] LA Volume Index 40.02 ml/m2 [ 16.00 - 34.00 ] Average E/E` 8.06 RV Base Dimen 2D 4.3 cm [ 2.5 - 4.2 ] RV S` 15.07 cm/sec TAPSE 2.47 cm [ 1.71 - 5.00 ] PV Peak Kj 1.0 m/s [ 0.4 - 0.8 ] RA Volume 57.93 ml PV Peak PG 4.00 mmHg RA Volume Index 28.17 ml/m2 PI Peak Kj 2.0 m/s IVC Diam 1.63 cm PI Peak PG 16 mmHg IVC Collapse 57 % PI PHT 228.87 sec AoR Diam 2D 3.53 cm [ 3.10 - 3.70 ] Ao Root Index 1.72 cm/m2 [ 1.00 - 2.00 ] Asc Ao Diam 2D 3.32 cm Asc Ao Index 1.61 cm/m2 Electronically Signed By: Raymond Phelps M.D. 05/14/2025 8:50:42 AM CDT Procedure Note Raymond Phelps MD PhD - 05/14/2025 [facility] [place] [address] Transthoracic Echocardiographic Report Patient Name: TAMMY WRIGHT : 1965 (60y 1m) Gender: M Study Date: 05/14/2025 07:35:21 AM Ht(Inch): 71 Wt(Lb): 186.07 BSA: 2.06 Nutrition And Dietetics Instructor: Michael Carr [facility] Location: [id number] Order Provider:ERIKA CHANDLER Heart Rate: 65 BMI: 25.95 BP: 106 / 57 Ref Provider: ERIKA CHANDLER PROCEDURES: Echocardiographic Report: Transthoracic complete echo with strain imaging,2D, spectral and tissue Doppler, color flow Doppler, M-mode. INDICATIONS: High Risk Meds, Acute Myeloid Leukemia. CONCLUSIONS: 1. Mildly dilated left ventricle based on volume index. Normal LV wallthickness. Normal left ventricular systolic function. The Ejection Fraction (Harris's) ismeasured at 71 %. Normal diastolic function. The average global longitudinal strain isnormal. 2. Right ventricular dilatation. Normal right ventricular systolicfunction. Wire noted in the right heart. TV S'=0.15 m/s (normal function). 3. The estimated pulmonary artery systolic pressure is 20.0 mmHg. No pulmHTN. ATTESTATION: I have personally reviewed and interpreted this study without fellow orresident. - DISCLAIMER: The study images and the final report will be retained in the patientchart by the Echo Laboratory for the legally required time period. This chart constitutesthe legal record of any testing performed. FINDINGS: Left Ventricle: Mildly dilated left ventricle based on volume index.Normal LV wall thickness. Normal left ventricular systolic function. The EjectionFraction (Harris's) is measured at 71 %. Normal diastolic function. The average globallongitudinal strain is normal. The LV global strain is: -23.4 %. Right Ventricle: Right ventricular dilatation. Normal right ventricularsystolic function. Wire noted in the right heart. TV S'=0.15 m/s (normalfunction). Left Atrium: Mildly dilated left atrium. Right Atrium: The right atrium is normal in size. Mitral Valve: Normal mitral valve structure. Mild mitral valveregurgitation. Aortic Valve: Normal trileaflet aortic valve. No aortic regurgitation. Themean transaortic gradient is 5 mmHg. The aortic valve area by the continuityequation (using VTI) is 2.86 cm2. Aortic valve dimensionless index is 0.88. Tricuspid Valve: Normal tricuspid valve structure. Mild tricuspidregurgitation. The estimated pulmonary artery systolic pressure is 20.0 mmHg. No pulm HTN. Pulmonic Valve: Normal pulmonic valve structure. Moderate pulmonicregurgitation. Pericardium: Normal pericardium without pericardial effusion. Aorta: Normal aortic root size at sinuses of Valsalva. Normal aortic rootsize when indexed. The ascending aorta is normal in size when indexed. IVC: The IVC was <2.1 cm and collapsibility >50%. (est. RA pressure 0-5mmHg). MEASUREMENTS: 2D/MM Value Range DopplerValue Range LVIDd 2D 4.85 cm [ 4.20 - 5.80 ] AV Peak Vel1.5 m/s [ 1.0 - 1.7 ] LVIDs 2D 2.93 cm [ 2.50 - 4.00 ] AV Peak PG9.00 mmHg IVSd 2D 1.00 cm [ 0.60 - 1.00 ] AV Mean PG5 mmHg LVPWd 2D 1.00 cm [ 0.60 - 1.00 ] AV VTI32.9 cm LV Thickness Ratio 1.0 LVOT Peak Vel1.3 m/s [ 0.7 - 1.1 ] LV FS 2D 39.61 % [ 25.00 - 43.00 ] LVOT Peak PG6.76 mmHg LV Mass 2D 176.75 g LVOT Mean PG3 mmHg LV Mass Index 2D 85.96 g/m2 LVOT VTI28.8 cm RWT 0.41 LVOT Diam2.04 cm EDV Mod BP 160.39 ml [ 62.00 - 150.00 ] GAEL VTI2.86 cm2 LV EDV Index 78.00 ml/m2 LVOT/AV VTI0.88 - Dimensionless index (DVI) ESV Mod BP 47.27 ml [ 21.00 - 61.00 ] MV E Peak Vel1.0 m/s [ 0.6 - 1.3 ] EF Mod BP 71 % [ 52 - 72 ] MV A Peak Vel0.9 m/s [ 1.0 - 1.2 ] LV GLS -23.4 % [ -25.0 - -18.0 ] MV E/A1.1 ratio [ 0.8 - 1.5 ] LA Length 4C 5.73 cm MV Decel Gdee299.56 msec [ 104.00 - 258.00 ] LA Length 2C 5.83 cm Med E` Vel10.2 cm/sec [ 8.0 - 25.0 ] LA Volume BP 82.29 ml Lat E` Vel14.6 cm/sec [ 10.0 - 25.0 ] LA Volume Index 40.02 ml/m2 [ 16.00 - 34.00 ] Average E/E`8.06 RV Base Dimen 2D 4.3 cm [ 2.5 - 4.2 ] RV S`15.07 cm/sec TAPSE 2.47 cm [ 1.71 - 5.00 ] PV Peak Vel1.0 m/s [ 0.4 - 0.8 ] RA Volume 57.93 ml PV Peak PG4.00 mmHg RA Volume Index 28.17 ml/m2 PI Peak Vel2.0 m/s IVC Diam 1.63 cm PI Peak PG16 mmHg IVC Collapse 57 % PI KWL297.87 sec AoR Diam 2D 3.53 cm [ 3.10 - 3.70 ] Ao Root Index 1.72 cm/m2 [ 1.00 - 2.00 ] Asc Ao Diam 2D3.32 cm Asc Ao Index1.61 cm/m2 Electronically Signed By: Raymond Phelps M.D. 05/14/2025 8:50:42 AM CDT us Erika Chandler DO CV ECHO PROCEDURES Final Result * Prepare RBC: 1 Units (05/14/2025 5:15 AM CDT) [facility] Product code [id number] Unit Number [id number] [facility] Product Blood Type BPOS [facility] Dispense Status PRESUMED TRANSFUSED [facility] Blood Venous blood specimen / Unknown 05/14/2025 5:15 AM CDT 05/14/2025 5:14 AM CDT Narrative [facility] - 05/14/2025 8:00 PM CDT Are special requirements needed? (All products are leukoreduced and CMV- safe)- >Yes Date required:-[id number] Special Req 1:-Irradiated LRRBC # of [id number] Reasons:-BMT, Hgb <8 g/dL} Tania Lott MD PhD BLOOD BANK PRODUCT ORDER BIANKA Final Result Performing Organization Address City/[facility]/ZIP Co de Phone Number [facility] Department [place] [address] * Potassium, whole blood (05/14/2025 3:48 AM CDT) [facility] Potassium, bld 4.2 3.3 - 4.9 mmol/L Blood 05/14/2025 3:48 AM CDT 05/14/2025 4:04 AM CDT Tania Lott MD PhD LAB BLOOD ORDERABLES Fin al Result [facility] Department [place] [address] * (ABNORMAL) Immature platelet fraction (05/14/2025 3:47 AM CDT) [facility] IPF 28.7(H) 1.6 - 10.1 % Blood 05/14/2025 3:47 AM CDT 05/14/2025 4:21 AM CDT Tania Lott MD PhD LAB BLOOD ORDERABLES Fin al Result Performing Organization Address [facility] de Phone Number ANGELA [facility] Department [place] [address] * eGFR (05/14/2025 3:47 AM CDT) [facility] eGFR >90 >=60 mL/min/1. 73 m2 Comment: [...] of Race in Diagnosing Kidney Disease, JASN 2020). The CKD-EPI equation should not be used for patients with unstable renal function and has not been validated in children and those over 70. Current interpretive data was last reviewed 2021. Blood 05/14/2025 3:47 AM CDT 05/14/2025 4:18 AM CDT us Tania Lott MD PhD LAB BLOOD ORDERABLES Fin al Result Performing Organization Address City/[facility] Co de Phone Number [facility] Department [place] [address] * (ABNORMAL) CBC with auto differential (05/14/2025 3:47 AM CDT) [facility] WBC 35.76(H) 3.80 - 9.90 K/cumm Hgb 7.0(L) 13.0 - 17.5 g/dL [facility] Hct 19.7(L) 38.9 - 50.3 % [facility] Plt 13(C) 150 - 400 K/cumm [facility] Comment:Platelet count confi rmed by additional testing. Critical platelet count threshold determined by patient location: Outpatient:<50 K/cumm , Inpatient adults:<20 K/cumm , Inpatient pediatric:<25 K/cumm, BMT service:<10 K/cumm MPV 10.1 9.1 - 12.3 fL [facility] RBC 2.12(L) 4.30 - 5.80 M/cumm [facility] MCV 92.9 81.3 - 96.4 fL [facility] MCH 33.0 27.1 - 33.3 pg [facility] MCHC 35.5 32.3 - 35.7 g/dL [facility] RDW CV 19.8(H) 11.1 - 14.9 % [facility] RDW SD 64.5(H) 35.7 - 48.1 fL [facility] NRBC abs 6.46(H) 0.00 - 0.01 K/cumm [facility] Blood 05/14/2025 3:47 AM CDT 05/14/2025 4:05 AM CDT us Tania Lott MD PhD LAB BLOOD ORDERABLES Fin al Result [facility] Department [place] [address] * (ABNORMAL) Manual Differential (05/14/2025 3:47 AM CDT) Differential Manual Cells Counted 111 [facility] Neutrophil abs 21.28(H) 1.50 - 6.50 K/cumm [facility] Imm gran abs 2.57(H) 0.00 - 0.10 K/cumm [facility] Lymphocyte abs 2.25 0.80 - 3.30 K/cumm [facility] Monocyte abs 2.90(H) 0.20 - 0.80 K/cumm [facility] Eosinophil abs 0.32 0.00 - 0.50 K/cumm [facility] Basophil abs 2.57(H) 0.00 - 0.10 K/cumm [facility] Neutrophil pct 59.5 % [facility] Comment: Interpretive Data Percent cell count reference ranges are not reported, since discordance with absolute values may lead to misinterpretation of CBC data. Current Interpretive Data was last revised on 2018. Lymphocyte pct 6.3 % [facility] Comment: Interpretive Data Percent cell count reference ranges are not reported, since discordance with absolute values may lead to misinterpretation of CBC data. Current Interpretive Data was last revised on 2018. Monocyte pct 8.1 % [facility] Comment: Interpretive Data Percent cell count reference ranges are not reported, since discordance with absolute values may lead to misinterpretation of CBC data. Current Interpretive Data was last revised on 2018. Eosinophil pct 0.9 % [facility] Comment: Interpretive Data Percent cell count reference ranges are not reported, since discordance with absolute values may lead to misinterpretation of CBC data. Current Interpretive Data was last revised on 2018. Basophil pct 7.2 % [facility] Comment: Interpretive Data Percent cell count reference ranges are not reported, since discordance with absolute values may lead to misinterpretation of CBC data. Current Interpretive Data was last revised on 2018. Myelocyte pct 5.4(H) 0.0 - 0.0 % [facility] Promyelocyte pct 1.8(H) 0.0 - 0.0 % [facility] Blast pct 10.8(C) 0.0 - 0.0 [facility] Comment:Critical value greene d within last 30 days. RBC morphology Present(A) [facility] Anisocytosis Moderate(A ) [facility] Macrocytes 3-7/HPF(A) [facility] Platelet estimate Decreased( A) [facility] Blood 05/14/2025 3:47 AM CDT 05/14/2025 4:21 AM CDT us Tania Lott MD PhD LAB BLOOD ORDERABLES Fin al Result [facility] Department [place] [address] * (ABNORMAL) HSV 2 IgG Antibody Blood (05/14/2025 3:47 AM CDT) HSV 2 IgG Reactive( A) Nonreactive Comment: Interpretive Data 1. Nonreactive: No detectable IgG antibody to HSV-2. 2. Equivocal: Presence or absence of detectable antibodies to HSV-2 cannot be determined and the test should be repeated. 3. Reactive: Indicates presence of detectable IgG antibody to HSV-2. Current interpretive data was last revised on 2023. Blood 05/14/2025 3:47 AM CDT 05/14/2025 4:09 AM CDT Tania Lott MD PhD LAB MICROBIOLOGY - GENER AL ORDERABLES Final Result Performing Organization Address [facility] de Phone Number [facility] [place] [address] * HSV 1 IgG Antibody Blood (05/14/2025 3:47 AM CDT) [facility] HSV 1 IgG Nonreactive Nonreactive Comment: Interpretive Data 1. Nonreactive: No detectable IgG antibody to HSV-1. 2. Equivocal: Presence or absence of detectable antibodies to HSV-1 cannot be determined and the test should be repeated. 3. Reactive: Indicates presence of detectable IgG antibody to HSV-1. Current interpretive data was last revised on 2016. Blood 05/14/2025 3:47 AM CDT 05/14/2025 4:09 AM CDT us Tania Lott MD PhD LAB MICROBIOLOGY - GENER AL ORDERABLES Final Result Performing Organization Address [facility] de Phone Number [facility] [place] [address] * (ABNORMAL) Uric acid (05/14/2025 3:47 AM CDT) [facility] Uric acid 1.7(L) 3.0 - 8.0 mg/dL Blood 05/14/2025 3:47 AM CDT 05/14/2025 4:06 AM CDT Tania Lott MD PhD LAB BLOOD ORDERABLES Fin al Result Performing Organization Address [facility] Co de Phone Number [facility] [place] [address] * (ABNORMAL) Phosphorus (05/14/2025 3:47 AM CDT) Phosphorus, pl 5.2(H) 2.3 - 4.5 mg/dL Blood 05/14/2025 3:47 AM CDT 05/14/2025 4:06 AM CDT Tania Lott MD PhD LAB BLOOD ORDERABLES Fin al Result Performing Organization Address [facility] de Phone Number [facility] [place] [address] * Magnesium (05/14/2025 3:47 AM CDT) Pathologist [facility] Magnesium 2.2 1.4 - 2.5 mg/dL Blood 05/14/2025 3:47 AM CDT 05/14/2025 4:06 AM CDT Tania Lott MD PhD LAB BLOOD ORDERABLES Fin al Result Performing Organization Address [facility] de Phone Number [facility] [place] [address] * (ABNORMAL) Lactate dehydrogenase (LD) (05/14/2025 3:47 AM CDT) Lactate dehydrogenase (LDH) 2,710(H) 100 - 250 Units/L Comment:Repeated on Dilution Blood 05/14/2025 3:47 AM CDT 05/14/2025 4:06 AM CDT Tania Lott MD PhD LAB BLOOD ORDERABLES Fin al Result Performing Organization Address [facility] Co de Phone Number [facility] [place] [address] * (ABNORMAL) Hepatic function panel (05/14/2025 3:47 AM CDT) Bilirubin, total 0.7 0.1 - 1.2 mg/dL Bilirubin, direct 0.3 0.1 - 0.3 mg/dL [facility] Protein, pl 4.6(L) 6.5 - 8.5 g/dL [facility] Albumin 2.7(L) 3.5 - 5.0 g/dL [facility] Alk phos 56 40 - 130 Units/L [facility] ALT 18 7 - 55 Units/L [facility] AST 79(H) 10 - 50 Units/L [facility] Blood 05/14/2025 3:47 AM CDT 05/14/2025 4:06 AM CDT Tania Lott MD PhD LAB BLOOD ORDERABLES Fin al Result Performing Organization Address [facility] de Phone Number [facility] [place] [address] * (ABNORMAL) Basic metabolic panel (05/14/2025 3:47 AM CDT) Pathologist [facility] Sodium 136 135 - 145 mmol/L Potassium, pl 4.6 3.3 - 4.9 mmol/L [facility] Chloride 98 97 - 110 mmol/L [facility] CO2 32 22 - 32 mmol/L [facility] Anion gap 6 2 - 15 mmol/L [facility] BUN 36(H) 6 - 25 mg/dL [facility] Creatinine 0.95 0.80 - 1.30 mg/dL [facility] Glucose 156 70 - 199 mg/dL [facility] Comment: Interpretive Data Fasting glucose >/= 126 [...] 2022. Calcium 8.5 8.5 - 10.3 mg/dL [facility] Blood 05/14/2025 3:47 AM CDT 05/14/2025 4:06 AM CDT Tania Lott MD PhD LAB BLOOD ORDERABLES Fin al Result Performing Organization Address [facility] Co de Phone Number [facility] [place] [address] * POCT glucose (05/14/2025 3:37 AM CDT) Glucose, POC 183 70 - 199 mg/dL Blood 05/14/2025 3:37 AM CDT 05/14/2025 3:37 AM CDT Tania Lott MD PhD LAB POCT ORDERABLES - DE VICE Final Result Performing Organization Address [facility] Co de Phone Number [facility] [place] [address] * POCT glucose (05/14/2025 12:34 AM CDT) Glucose, POC 179 70 - 199 mg/dL Blood 05/14/2025 12:3 4 AM CDT 05/14/2025 12:34 AM CDT Tania Lott MD PhD LAB POCT ORDERABLES - DE VICE Final Result Performing Organization Address [facility] Co de Phone Number [facility] Department [place] [address] * Collection task for HLA Typing, Buccal (05/13/2025 8:50 PM CDT) Pathologist [facility] HLA typing, buccal collection Received Buccal swab 05/13/2025 8:50 PM CDT 05/14/2025 10:10 AM CDT Narrative ANGELA DUNAWAY - 05/14/2025 10:10 AM CDT HLA initial and confirmatory typing cannot be collected at the same time. Ensure samples are collected separately. us Erika Chandler DO LAB BODY FLUIDS AND STOOLS ORDER BIANKA Final Result Performing Organization Address [facility] [place] [address] * Collection Task for HLA Typing 1 (05/13/2025 8:50 PM CDT) [facility] HLA Class I DNA (ABC) Recipient Received Blood 05/13/2025 8:50 PM CDT 05/14/2025 10:10 AM CDT us Erika Chandler DO LAB BLOOD ORDERABLES Final Resul t Performing Organization Address [facility] de Phone Number [facility] [place] [address] * Collection Task for HLA Antibody Screen (05/13/2025 8:50 PM CDT) [facility] HLA Antibody Screen By Single Antigen Received Blood 05/13/2025 8:50 PM CDT 05/14/2025 10:10 AM CDT us Erika Chandler DO LAB BLOOD ORDERABLES Final Resul t Performing Organization Address [facility] Co de Phone Number [facility] [place] [address] * (ABNORMAL) Lactate dehydrogenase (LD) (05/13/2025 8:50 PM CDT) Lactate dehydrogenase (LDH) 3,125(H) 100 - 250 Units/L Comment:Repeated on Dilution Blood 05/13/2025 8:50 PM CDT 05/13/2025 10:16 PM CDT us Fab Eden [employer] LAB BLOOD ORDERABLES Final R esult ANGELA [facility] Department [place] [address] * HLA Confirmatory Typing (05/13/2025 8:44 PM CDT) r-SSO HISTOTRAC A First Allele A*02 HISTOTRAC A Second Allele A*24 HISTOTRAC A First Serological Equivalent A2 HISTOTRAC A Second Serological Equivalent A24 HISTOTRAC B First Allele B*07 HISTOTRAC B Second Allele B*44 HISTOTRAC B First Serological Equivalent B7 HISTOTRAC B Second Serological Equivalent B44 [facility] Confirmatory Interpretation Matches initial typing. [facility] See Collection Task 05/13/2025 8:44 PM CDT 05/24/2025 10:16 AM CDT Narrative [facility] - 05/24/2025 10:16 AM CDT DNA was extracted from whole blood or buccal cell specimens, and relevant genomic regions were amplified by polymerase chain reactions (PCR). HLA typing was performed on PCR amplicons using reverse sequence-specific oligonucleotide (r-SSO) and/or sequence-specific primers (SSP) based techniques. r-SSO and SSP are FDA approved as IVD tests and validated by the [facility] HLA Laboratory. Testing performed at the [facility], [address] [place] [address], 5th floor, [place], [address]. [facility] # [id number]. Earnestine Onofre, Ph.D., Geriatrician, HLA Laboratory Santhosh Gabriel M.D., Ph.D., Clinical Program Coordinator, HLA Laboratory Kimberley Vega, Ph.D., CLIA Clinical Program Coordinator, [facility] Current methodology comment last revised on 06/11/17. us Erika Chandler DO LAB BLOOD ORDERABLES Final Resul t [facility] * HR HLA Typing (Class I and Class II) (05/13/2025 8:40 PM CDT) NGS HISTOTRAC A First Allele A*02:01 HISTOTRAC A Second Allele A*24:02 HISTOTRAC A First Serological Equivalent A2 HISTOTRAC A Second Serological Equivalent A24 HISTOTRAC B First Allele B*07:02 HISTOTRAC B Second Allele B*44:02 HISTOTRAC B First Serological Equivalent B7 HISTOTRAC B Second Serological Equivalent B44 HISTOTRAC Bw First Serological Equivalent Bw6 HISTOTRAC Bw Second Serological Equivalent Bw4 HISTOTRAC C First Allele C*05:01 HISTOTRAC C Second Allele C*07:02 HISTOTRAC C First Serological Equivalent Cw5 HISTOTRAC C Second Serological Equivalent Cw7 HISTOTRAC DRB1 First Allele DRB1*04:AG GNF HISTOTRAC DRB1 Second Allele DRB1*11:[address]IST[address]RAC [address]B1 First Serological Equivalent DR4 HISTOTRAC DRB1 Second Serological Equivalent DR11 HISTOTRAC DRB3 First Allele DRB3*02:FD GBW HISTOTRAC DRB3 First Serological Equivalent DR52 HISTOTRAC DRB4 Second Allele DRB4*01:EU HVF HISTOTRAC DRB4 Second Serological Equivalent DR53 HISTOTRAC DQA1 First Allele DQA1*03:01 HISTOTRAC DQA1 Second Allele DQA1*05:05 HISTOTRAC DQB1 First Allele DQB1*03:FG VMS HISTOTRAC DQB1 Second Allele DQB1*03:02 HISTOTRAC DQB1 First Serological Equivalent DQ7 HISTOTRAC DQB1 Second Serological Equivalent DQ8 HISTOTRAC DPB1 First Allele DPB1*03:01 :01G HISTOTRAC DPB1 Second Allele DBP1*04:01 :01G HISTOTRAC DPA1 First Allele DPA1*01:03 HISTOTRAC DPA1 Second Allele DPA1*01:03 [facility] Blood 05/13/2025 8:40 PM CDT 05/24/2025 10:18 AM CDT Narrative [facility] - 05/24/2025 10:18 AM CDT DNA was extracted from whole blood or buccal cell specimens, and relevant genomic regions were amplified by polymerase chain reaction (PCR). HLA typing was performed on PCR amplicons by next-generation sequencing (NGS) using the AllType NGS assay ([employer]) on the [id number] platform, which outperforms the Taiwo Sequence-based typing (SBT) but is not FDA approved for HLA typing. The sequence-specific primers (SSP) method may be employed to resolve ambiguity using FDA approved IVD products ([place] SSP) as indicated. The performance of the above methods are validated by the [facility] HLA Laboratory. For typing results reported using NMDP codes, all unresolved alleles represented by the code are listed under the NMDP Code Translations section. DPB1 typing may be resulted using G group codes when applicable (e.g. DPB1*01:01:01G); all alleles within a G group share the same DNA sequence for the exon 2 of DPB1, and the list of unresolved alleles within a G group can be viewed at http://hla.alleles.org/alleles/g_groups.html. Testing performed at the [facility], [facility], 5th floor, [place], [address]. [facility] # [id number]. Earnestine Onofre, Ph.D., Geriatrician, HLA Laboratory Santhosh Gabriel M.D., Ph.D., Clinical Program Coordinator, HLA Laboratory Kimberley Vega, Ph.D., CLIA Clinical Program Coordinator, [facility] Current methodology comment last revised on 07/05/2020. us Erika Chandler DO LAB BLOOD ORDERABLES Final Resul t [facility] * HLA Antibody Screen - SAB (Class I and Class II) (05/13/2025 8:40 PM CDT) Class I Treatment EDTA [facility] Class I Dilution 1:1 [facility] Class I Tested Date 05/14/2025 [facility] Class I Result Negative [facility] Class I CPRA 0 [facility] Class II Treatment EDTA [facility] Class II Dilution 1:1 [facility] Class II Tested Date 05/14/2025 [facility] Class II Result Positive [facility] Class II CPRA 3 [facility] Class II Moderate Risk DR9 [facility] Blood 05/13/2025 8:40 PM CDT 05/25/2025 8:22 AM CDT Narrative [facility] - 05/25/2025 8:22 AM CDT Single-antigen HLA antibody screen is performed on serum samples using a method developed and validated by the [facility] HLA laboratory based on an FDA-approved IVD kit ([employer] Single-Antigen, [employer], [place], [place]). All patient serum samples are pretreated with EDTA before the screen to prevent complement interference. Additional serum treatments, such as adsorption and DTT treatment, may be performed as indicated. Interpretive comments: Low risk: MFI [id number]. Moderate risk: MFI 3292-0453. Increased risk: MFI >/= 5000. The presence of an antigen in two or more risk categories may indicate a mixed reactivity pattern among beads of multiple subtypes. Preformed donor-specific antibodies (DSA) with MFI above 2000 are predictive of positive cytotoxicity crossmatch (Hum Immunol 2010;71:268-73. Hum Immunol 2012;73:497- 604) and carry a higher risk of humoral rejection. For our solid-organ transplant programs, unacceptable antigens (UA) for transplant candidates are defined by MFI >/= 2000 with some exceptions. UA are listed at UNOS and used to generate calculated PRA (cPRA) rounded to the nearest integer. In the post-transplant setting, MFI values from donor-specific beads are listed in the DSA report to provide additional information. It is important to note that this test is approved as a qualitative test and the MFI values are not strictly linear. For platelet refractoriness: An empirical cutoff value of MFI >/= 2000 has been used in our center; a higher cutoff value such as 5000 may also be suitable for highly sensitized patients to prioritize the antigens to avoid. Testing performed at the [facility], [facility] [address], 5th floor, [facility], [place], [address]. CLIA # [id number]. Earnestine Onofre, Ph.D., Geriatrician, HLA Laboratory Santhosh Gabriel M.D., Ph.D., Clinical Program Coordinator, HLA Laboratory Kimberley Vega, Ph.D., BEHZAD Clinical Program Coordinator, [facility] Current methodology and interpretive comments last revised on 11/01/2022. us Erika Chandler DO LAB BLOOD ORDERABLES Final Resul t [facility] * POCT glucose (05/13/2025 8:32 PM CDT) Glucose, POC 190 70 - 199 mg/dL Blood 05/13/2025 8:32 PM CDT 05/13/2025 8:32 PM CDT us Tania Lott MD PhD LAB POCT ORDERABLES - DE VICE Final Result Performing Organization Address [facility] Co de Phone Number ANGELA [facility] Department [place] [address] * XR Chest 1 View (05/13/2025 7:46 PM CDT) Anatomical Region Laterality Modality Body, Chest N/A Computed Radiogr aphy 05/13/2025 7:51 PM CDT Impressions 05/13/2025 7:51 PM CDT Left subclavian atrial ventricular pacemaker again seen. Right internal jugular catheter tip in superior vena cava. Stable cardiomediastinal silhouette with normal heart size. Interval decrease in patchy bibasilar opacities which may be due to improvement in atelectasis and/or aspiration. No new consolidation, pleural effusion, or pneumothorax. Electronically signed by: Chavo Spence M.D. Narrative 05/13/2025 7:51 PM CDT EXAMINATION: 1 view chest radiograph COMPARISON: 05/12/2025 Procedure Note Chavo Spence MD - 05/13/2025 EXAMINATION: 1 view chest radiograph COMPARISON: 05/12/2025 IMPRESSION: Left subclavian atrial ventricular pacemaker again seen. Right internal jugular catheter tip in superior vena cava. Stable cardiomediastinal silhouette with normal heart size. Interval decrease in patchy bibasilar opacities which may be due to improvement in atelectasis and/or aspiration. No new consolidation, pleural effusion, or pneumothorax. Electronically signed by: Chavo Sepnce M.D. us Erika Chandler DO IMG XR PROCEDURES Final Result * Potassium, whole blood (05/13/2025 4:20 PM CDT) Potassium, bld 3.6 3.3 - 4.9 mmol/L Blood 05/13/2025 4:20 PM CDT 05/13/2025 4:25 PM CDT Sandy Meraz NP LAB BLOOD ORDERABLES Final R esult [facility] Department [place] [address] * eGFR (05/13/2025 4:20 PM CDT) eGFR 89 >=60 mL/min/1. 73 m2 Comment: Interpretive Data [...] of Race in Diagnosing Kidney Disease, JASN 2020). The CKD-EPI equation should not be used for patients with unstable renal function and has not been validated in children and those over 70. Current interpretive data was last reviewed 2021. Blood 05/13/2025 4:20 PM CDT 05/13/2025 4:35 PM CDT Fab Eden [employer] LAB BLOOD ORDERABLES Final R esult Performing Organization Address [facility]/ZIP Co de Phone Number [facility] [place] [address] * (ABNORMAL) Uric acid (05/13/2025 4:20 PM CDT) Uric acid 1.8(L) 3.0 - 8.0 mg/dL Blood 05/13/2025 4:20 PM CDT 05/13/2025 4:25 PM CDT Narrative [facility] - 05/13/2025 5:11 PM CDT Q8hr TLS labs Sandy Meraz [employer] LAB BLOOD ORDERABLES Final R esult Performing Organization Address [facility] Co de Phone Number [facility] [place] [address] * Phosphorus (05/13/2025 4:20 PM CDT) Pathologist [facility] Phosphorus, pl 3.6 2.3 - 4.5 mg/dL Blood 05/13/2025 4:20 PM CDT 05/13/2025 4:25 PM CDT Sandy Meraz NP LAB BLOOD ORDERABLES Final R esult Performing Organization Address City/[facility] Co de Phone Number [facility] [place] [address] * (ABNORMAL) Hepatic function panel (05/13/2025 4:20 PM CDT) Bilirubin, total 0.9 0.1 - 1.2 mg/dL Bilirubin, direct 0.4(H) 0.1 - 0.3 mg/dL [facility] Protein, pl 5.5(L) 6.5 - 8.5 g/dL [facility] Albumin 3.1(L) 3.5 - 5.0 g/dL [facility] Alk phos 75 40 - 130 Units/L [facility] ALT 19 7 - 55 Units/L [facility] AST 98(H) 10 - 50 Units/L [facility] Blood 05/13/2025 4:20 PM CDT 05/13/2025 4:25 PM CDT us Alex Yost MD LAB BLOOD ORDERABLES F inal Result [facility] Department [place] [address] * (ABNORMAL) Basic metabolic panel (05/13/2025 4:20 PM CDT) Sodium 139 135 - 145 mmol/L Potassium, pl 4.3 3.3 - 4.9 mmol/L [facility] Chloride 98 97 - 110 mmol/L [facility] CO2 30 22 - 32 mmol/L [facility] Anion gap 11 2 - 15 mmol/L [facility] BUN 31(H) 6 - 25 mg/dL [facility] Creatinine 0.98 0.80 - 1.30 mg/dL [facility] Glucose 218(H) 70 - 199 mg/dL [facility] Comment: Interpretive Data Fasting glucose >/= 126 [...] interpretive data was last revised 2022. Calcium 9.7 8.5 - 10.3 mg/dL [facility] Blood 05/13/2025 4:20 PM CDT 05/13/2025 4:25 PM CDT us Fab Eden [employer] LAB BLOOD ORDERABLES Final R esult Performing Organization Address [facility] Co de Phone Number [facility] [place] [address] * (ABNORMAL) POCT glucose (05/13/2025 3:25 PM CDT) [facility] Glucose, POC 250(H) 70 - 199 mg/dL Blood 05/13/2025 3:25 PM CDT 05/13/2025 3:25 PM CDT us Alex Yost MD LAB POCT ORDERABLES - DEVICE Final Result Performing Organization Address [facility] de Phone Number [facility] Department [place] [address] * (ABNORMAL) Immature platelet fraction (05/13/2025 1:22 PM CDT) [facility] IPF 19.7(H) 1.6 - 10.1 % Blood 05/13/2025 1:22 PM CDT 05/13/2025 1:40 PM CDT Alex Yost MD LAB BLOOD ORDERABLES F inal Result Performing Organization Address [facility] de Phone Number [facility] [place] [address] * Blood product CBC (05/13/2025 1:22 PM CDT) [facility] WBC, product 354.9 K/cumm Comment:Critical value greene d within last 72 hrs RBC, product 0.34 M/cumm [facility] Hgb, product 0.8 g/dL [facility] Comment:This result has been called to SOP by [email or web address] on 05/13/2025 13:46:11, and has not been read back. donor sample. Hct, product 3.8 % [facility] MCV, product 111.8 fL [facility] Plt, product 48 K/cumm [facility] Comment:Platelet count confi rmed by additional testing. Critical platelet count threshold determined by patient location: Outpatient:<50 K/cumm , Inpatient adults:<20 K/cumm , Inpatient pediatric:<25 K/cumm, BMT service:<10 K/cumm Neut pct, product 58.2 % [facility] ImmGran pct, product 0.0 % [facility] Lymph pct, product 9.3 % [facility] [place] pct, product 32.5 % [facility] Eos pct, product 0.0 % [facility] Baso pct, product 0.0 % [facility] Blood 05/13/2025 1:22 PM CDT 05/13/2025 1:37 PM CDT Alex Yost MD LAB BLOOD ORDERABLES F inal Result [facility] Department [place] [address] * (ABNORMAL) CBC with auto differential (05/13/2025 1:22 PM CDT) [facility] Signature WBC 47.41(H) 3.80 - 9.90 K/cumm Hgb 8.3(L) 13.0 - 17.5 g/dL [facility] Comment:leukocyte reduction procedure Hemoglobin delta due to apparent blood transfusion. Hct 23.9(L) 38.9 - 50.3 % [facility] Plt 15(C) 150 - 400 K/cumm [facility] Comment: leukocyte reduction procedure Platelet count confirmed by additional testing. Critical platelet count threshold determined by patient location: Outpatient:<50 K/cumm , Inpatient adults:<20 K/cumm , Inpatient pediatric:<25 K/cumm, BMT service:<10 K/cummNo clot detected in sample.Repeated and Verified.Verified by peripheral smear. MPV 9.8 9.1 - 12.3 fL [facility] RBC 2.61(L) 4.30 - 5.80 M/cumm [facility] MCV 91.6 81.3 - 96.4 fL [facility] Comment:leukocyte reduction procedure MCV delta due to apparent blood transfusion. MCH 31.8 27.1 - 33.3 pg [facility] MCHC 34.7 32.3 - 35.7 g/dL [facility] RDW CV 19.9(H) 11.1 - 14.9 % [facility] RDW SD 63.2(H) 35.7 - 48.1 fL [facility] NRBC abs 8.59(H) 0.00 - 0.01 K/cumm [facility] Blood 05/13/2025 1:22 PM CDT 05/13/2025 1:37 PM CDT Narrative [facility] - 05/13/2025 2:27 PM CDT Instructions:->Post procedure Alex Yost MD LAB BLOOD ORDERABLES F inal Result [facility] Department [place] [address] * (ABNORMAL) Manual Differential (05/13/2025 1:22 PM CDT) Differential Manual Cells Counted 116 [facility] Neutrophil abs 29.92(H) 1.50 - 6.50 K/cumm [facility] Imm gran abs 4.08(H) 0.00 - 0.10 K/cumm [facility] Lymphocyte abs 1.61 0.80 - 3.30 K/cumm [facility] Monocyte abs 0.81(H) 0.20 - 0.80 K/cumm [facility] Basophil abs 1.61(H) 0.00 - 0.10 K/cumm [facility] Neutrophil pct 63.1 % [facility] Comment: Interpretive Data Percent cell count reference ranges are not reported, since discordance with absolute values may lead to misinterpretation of CBC data. Current Interpretive Data was last revised on 2018. Lymphocyte pct 3.4 % [facility] Comment: Interpretive Data Percent cell count reference ranges are not reported, since discordance with absolute values may lead to misinterpretation of CBC data. Current Interpretive Data was last revised on 2018. Monocyte pct 1.7 % [facility] Comment: Interpretive Data Percent cell count reference ranges are not reported, since discordance with absolute values may lead to misinterpretation of CBC data. Current Interpretive Data was last revised on 2018. Basophil pct 3.4 % [facility] Comment: Interpretive Data Percent cell count reference ranges are not reported, since discordance with absolute values may lead to misinterpretation of CBC data. Current Interpretive Data was last revised on 2018. Myelocyte pct 2.6(H) 0.0 - 0.0 % [facility] Promyelocyte pct 6.0(H) 0.0 - 0.0 % [facility] Blast pct 19.8(C) 0.0 - 0.0 [facility] Comment:Critical value greene d within last 30 days. RBC morphology Present(A) [facility] Anisocytosis Moderate(A ) [facility] Poikilocytosis Slight(A) [facility] Macrocytes 8-15/HPF(A ) [facility] Schistocytes 1-2/HPF(A) [facility] Spherocytes 3-7/HPF(A) [facility] Target cells 3-7/HPF(A) [facility] Platelet estimate Decreased( A) [facility] Blood 05/13/2025 1:22 PM CDT 05/13/2025 1:40 PM CDT us Alex Yost MD LAB BLOOD ORDERABLES F inal Result [facility] Department [place] [address] * (ABNORMAL) POCT glucose (05/13/2025 1:01 PM CDT) Glucose, POC 271(H) 70 - 199 mg/dL Blood 05/13/2025 1:01 PM CDT 05/13/2025 1:[address] [facility] Alex Yost MD LAB POCT ORDERABLES - DEVICE Final Result Performing Organization Address [facility] Co de Phone Number [facility] [place] [address] * (ABNORMAL) Immature platelet fraction (05/13/2025 11:35 AM CDT) IPF 20.2(H) 1.6 - 10.1 % Blood 05/13/2025 11:3 5 AM CDT 05/13/2025 11:[address] [facility] Alex Yost MD LAB BLOOD ORDERABLES F inal Result Performing Organization Address [facility] de Phone Number [facility] [place] [address] * (ABNORMAL) Calcium, ionized, whole blood (05/13/2025 11:35 AM CDT) Pathologist [facility] Ca, ionized, bld 4.32(L) 4.50 - 5.10 mg/dL Blood 05/13/2025 11:3 5 AM CDT 05/13/2025 11:40 AM CDT Narrative [facility] - 05/13/2025 11:47 AM CDT For apheresis nurse only, draw mid procedure iCa Alex Yost MD LAB BLOOD ORDERABLES F inal Result Performing Organization Address [facility] Co de Phone Number [facility] [place] [address] * (ABNORMAL) CBC without differential (05/13/2025 11:35 AM CDT) WBC 72.34(C) 3.80 - 9.90 K/cumm Comment:Critical value greene d within last 72 hrs Hgb 7.6(L) 13.0 - 17.5 g/dL [facility] Hct 21.2(L) 38.9 - 50.3 % [facility] Plt 22(C) 150 - 400 K/cumm [facility] Comment:Platelet count confi rmed by additional testing. Critical platelet count threshold determined by patient location: Outpatient:<50 K/cumm , Inpatient adults:<20 K/cumm , Inpatient pediatric:<25 K/cumm, BMT service:<10 K/cumm MPV 11.8 9.1 - 12.3 fL [facility] RBC 2.30(L) 4.30 - 5.80 M/cumm [facility] MCV 92.2 81.3 - 96.4 fL [facility] MCH 33.0 27.1 - 33.3 pg [facility] MCHC 35.8(H) 32.3 - 35.7 g/dL [facility] RDW CV 19.9(H) 11.1 - 14.9 % [facility] RDW SD 64.0(H) 35.7 - 48.1 fL [facility] NRBC abs 9.24(H) 0.00 - 0.01 K/cumm [facility] Blood 05/13/2025 11:3 5 AM CDT 05/13/2025 11:46 AM CDT Narrative [facility] - 05/13/2025 12:29 PM CDT Instructions:->Mid Procedure Alex Yost MD LAB BLOOD ORDERABLES E dited Result - Final [facility] Department [place] [address] * POCT glucose (05/13/2025 11:30 AM CDT) [facility] Glucose, POC 198 70 - 199 mg/dL Blood 05/13/2025 11:3 0 AM CDT 05/13/2025 11:30 AM CDT Alex Yost MD LAB POCT ORDERABLES - DEVICE Final Result [facility] [place] [address] * (ABNORMAL) Immature platelet fraction (05/13/2025 9:53 AM CDT) [facility] IPF 24.5(H) 1.6 - 10.1 % Blood 05/13/2025 9:53 AM CDT 05/13/2025 10:21 AM CDT Alex Yost MD LAB BLOOD ORDERABLES F inal Result Performing Organization Address [facility] Co de Phone Number [facility] Department [place] [address] * (ABNORMAL) CBC with auto differential (05/13/2025 9:53 AM CDT) [facility] WBC 114.86(C) 3.80 - 9.90 K/cumm Comment:Critical value greene d within last 72 hrs Hgb 7.5(L) 13.0 - 17.5 g/dL [facility] Hct 22.3(L) 38.9 - 50.3 % [facility] Plt 25(C) 150 - 400 K/cumm [facility] Comment:Platelet count confi rmed by additional testing. Critical platelet count threshold determined by patient location: Outpatient:<50 K/cumm , Inpatient adults:<20 K/cumm , Inpatient pediatric:<25 K/cumm, BMT service:<10 K/cumm MPV Not Measured 9.1 - 12.3 fL [facility] RBC 2.37(L) 4.30 - 5.80 M/cumm [facility] MCV 94.1 81.3 - 96.4 fL [facility] MCH 31.6 27.1 - 33.3 pg [facility] MCHC 33.6 32.3 - 35.7 g/dL [facility] RDW CV 20.0(H) 11.1 - 14.9 % [facility] RDW SD 66.2(H) 35.7 - 48.1 fL [facility] NRBC abs 9.33(H) 0.00 - 0.01 K/cumm [facility] Blood 05/13/2025 9:53 AM CDT 05/13/2025 10:15 AM CDT Narrative [facility] - 05/13/2025 11:58 AM CDT If not drawn in last 6 hours Instructions:->Pre procedure Alex Yost MD LAB BLOOD ORDERABLES F inal Result [facility] Department [place] [address] * (ABNORMAL) Manual Differential (05/13/2025 9:53 AM CDT) Differential Manual Cells Counted 111 [facility] Neutrophil abs 19.64(H) 1.50 - 6.50 K/cumm [facility] Imm gran abs 4.13(H) 0.00 - 0.10 K/cumm [facility] Lymphocyte abs 7.24(H) 0.80 - 3.30 K/cumm [facility] Monocyte abs 8.27(H) 0.20 - 0.80 K/cumm [facility] Eosinophil abs 1.03(H) 0.00 - 0.50 K/cumm [facility] Basophil abs 3.10(H) 0.00 - 0.10 K/cumm [facility] Neutrophil pct 17.1 % [facility] Comment: Interpretive Data Percent cell count reference ranges are not reported, since discordance with absolute values may lead to misinterpretation of CBC data. Current Interpretive Data was last revised on 2018. Lymphocyte pct 6.3 % [facility] Comment: Interpretive Data Percent cell count reference ranges are not reported, since discordance with absolute values may lead to misinterpretation of CBC data. Current Interpretive Data was last revised on 2018. Monocyte pct 7.2 % [facility] Comment: Interpretive Data Percent cell count reference ranges are not reported, since discordance with absolute values may lead to misinterpretation of CBC data. Current Interpretive Data was last revised on 2018. Eosinophil pct 0.9 % [facility] Comment: Interpretive Data Percent cell count reference ranges are not reported, since discordance with absolute values may lead to misinterpretation of CBC data. Current Interpretive Data was last revised on 2018. Basophil pct 2.7 % [facility] Comment: Interpretive Data Percent cell count reference ranges are not reported, since discordance with absolute values may lead to misinterpretation of CBC data. Current Interpretive Data was last revised on 2018. Myelocyte pct 1.8(H) 0.0 - 0.0 % [facility] Promyelocyte pct 1.8(H) 0.0 - 0.0 % [facility] Blast pct 62.2(C) 0.0 - 0.0 [facility] Comment:Critical value greene d within last 30 days. RBC morphology Present(A) [facility] Anisocytosis Moderate(A ) [facility] Poikilocytosis Slight(A) [facility] Macrocytes 3-7/HPF(A) [facility] Schistocytes 1-2/HPF(A) [facility] Platelet estimate Decreased( A) [facility] Blood 05/13/2025 9:53 AM CDT 05/13/2025 10:21 AM CDT us Alex Yost MD LAB BLOOD ORDERABLES F inal Result Performing Organization Address City/[facility]/ZIP Co de Phone Number [facility] Department [place] [address] * Transfuse RBC (05/13/2025 9:25 AM CDT) Blood us Sandy Meraz NP BLOOD TRANSFUSION ORDERABLES Final Result [facility] Department [place] [address] * Transfuse RBC (05/13/2025 8:22 AM CDT) Blood us Sandy Meraz [employer] BLOOD TRANSFUSION ORDERABLES Edited Result - Final Performing Organization Address [facility] Co de Phone Number [facility] [place] [address] * POCT glucose (05/13/2025 7:46 AM CDT) Glucose, POC 180 70 - 199 mg/dL Blood 05/13/2025 7:46 AM CDT 05/13/2025 7:46 AM CDT us Alex Yost MD LAB POCT ORDERABLES - DEVICE Final Result Performing Organization Address [facility] Co de Phone Number [facility] [place] [address] * Potassium, whole blood (05/13/2025 7:23 AM CDT) Potassium, bld 3.7 3.3 - 4.9 mmol/L Blood 05/13/2025 7:23 AM CDT 05/13/2025 8:04 AM CDT us Sandy Meraz NP LAB BLOOD ORDERABLES Final R esult Performing Organization Address [facility] Co de Phone Number [facility] [place] [address] * eGFR (05/13/2025 7:23 AM CDT) eGFR 87 >=60 mL/min/1. 73 m2 Comment: Interpretive Data [...] of Race in Diagnosing Kidney Disease, JASN 2020). The CKD-EPI equation should not be used for patients with unstable renal function and has not been validated in children and those over 70. Current interpretive data was last reviewed 2021. Blood 05/13/2025 7:23 AM CDT 05/13/2025 8:08 AM CDT us Fab Eden [employer] LAB BLOOD ORDERABLES Final R esult Performing Organization Address [facility] Co de Phone Number [facility] Department [place] [address] * (ABNORMAL) Uric acid (05/13/2025 7:23 AM CDT) Uric acid 2.5(L) 3.0 - 8.0 mg/dL Blood 05/13/2025 7:23 AM CDT 05/13/2025 8:08 AM CDT Vanda [facility] - 05/13/2025 8:41 AM CDT Q8hr TLS labs Sandy Meraz NP LAB BLOOD ORDERABLES Final R esult Performing Organization Address City/[facility] Co de Phone Number [facility] Department [place] [address] * Phosphorus (05/13/2025 7:23 AM CDT) Phosphorus, pl 3.7 2.3 - 4.5 mg/dL Blood 05/13/2025 7:23 AM CDT 05/13/2025 8:08 AM CDT Sandy Meraz NP LAB BLOOD ORDERABLES Final R esult Performing Organization Address [facility]/ZIP Co de Phone Number [facility] Department [place] [address] * Magnesium (05/13/2025 7:23 AM CDT) [facility] Magnesium 2.0 1.4 - 2.5 mg/dL Blood 05/13/2025 7:23 AM CDT 05/13/2025 8:08 AM CDT us Alex Yost MD LAB BLOOD ORDERABLES F inal Result Performing Organization Address [facility] Co de Phone Number [facility] Department [place] [address] * (ABNORMAL) Lactate dehydrogenase (LD) (05/13/2025 7:23 AM CDT) [facility] Lactate dehydrogenase (LDH) 4,145(H) 100 - 250 Units/L Comment:Repeated on Dilution Blood 05/13/2025 7:23 AM CDT 05/13/2025 8:08 AM CDT us Fab Eden [employer] LAB BLOOD ORDERABLES Final R esult Performing Organization Address [facility] Co de Phone Number [facility] Department [place] [address] * (ABNORMAL) Basic metabolic panel (05/13/2025 7:23 AM CDT) [facility] Sodium 137 135 - 145 mmol/L Potassium, pl 5.2(H) 3.3 - 4.9 mmol/L [facility] Comment:Potassium results ma y be falsely elevated in the presence of leukocytosis: WBC >50 K/cumm. Suggest sending whole blood Potassium, if available. Chloride 99 97 - 110 mmol/L [facility] CO2 31 22 - 32 mmol/L [facility] Anion gap 7 2 - 15 mmol/L [facility] BUN 28(H) 6 - 25 mg/dL [facility] Creatinine 1.00 0.80 - 1.30 mg/dL [facility] Glucose 160 70 - 199 mg/dL [facility] Comment: Interpretive Data Fasting glucose >/= 126 [...] classification and Diagnosis of Diabetes Diabetes Care 202; 46: S19-S40. Current interpretive data was last revised 2022. Calcium 8.3(L) 8.5 - 10.3 mg/dL [facility] Blood 05/13/2025 7:23 AM CDT 05/13/2025 8:08 AM CDT us Fba Eden [employer] LAB BLOOD ORDERABLES Edited Result - Final Performing Organization Address City/[facility]/ZIP Co de Phone Number [facility] Department [place] [address] * Prepare RBC: 1 Units (05/13/2025 6:16 AM CDT) [facility] Signature Product code [id number] Unit Number [id number] * [facility] Product Blood Type BPOS [facility] Dispense Status PRESUMED TRANSFUSED [facility] Blood 05/13/2025 6:16 AM CDT 05/13/2025 6:16 AM CDT Narrative [facility] - 05/13/2025 8:00 PM CDT Are special requirements needed? (All products are leukoreduced and CMV- safe)- >No Date required:-[id number] LRRBC # of [id number] Reasons:-Hgb <7 g/dL} us Sandy Meraz [employer] BLOOD BANK PRODUCT ORDERABLE S Final Result Performing Organization Address City/[facility]/ZIP Co de Phone Number [facility] [place] [address] * (ABNORMAL) POCT glucose (05/13/2025 3:48 AM CDT) [facility] Glucose, POC 212(H) 70 - 199 mg/dL Comment:Glu2: RN/MD Notified Glucose comment 1 Glu2: RN/MD Notified [facility] Blood 05/13/2025 3:48 AM CDT 05/13/2025 3:48 AM CDT us Alex Yost MD LAB POCT ORDERABLES - DEVICE Final Result [facility] [place] [address] * (ABNORMAL) Immature platelet fraction (05/13/2025 1:57 AM CDT) [facility] IPF 22.3(H) 1.6 - 10.1 % Blood 05/13/2025 1:57 AM CDT 05/13/2025 2:18 AM CDT us Sandy Meraz NP LAB BLOOD ORDERABLES Final R esult Performing Organization Address City/[facility]/ZIP Co de Phone Number [facility] [place] [address] * (ABNORMAL) CBC with auto differential (05/13/2025 1:57 AM CDT) [facility] WBC 123.84(C) 3.80 - 9.90 K/cumm Comment:Critical value greene d within last 72 hrs Hgb 6.5(L) 13.0 - 17.5 g/dL [facility] Hct 18.2(L) 38.9 - 50.3 % [facility] Plt 24(C) 150 - 400 K/cumm [facility] Comment:Platelet count confi rmed by additional testing. Critical platelet count threshold determined by patient location: Outpatient:<50 K/cumm , Inpatient adults:<20 K/cumm , Inpatient pediatric:<25 K/cumm, BMT service:<10 K/cumm MPV Not Measured 9.1 - 12.3 fL [facility] RBC 1.93(L) 4.30 - 5.80 M/cumm [facility] MCV 94.3 81.3 - 96.4 fL [facility] MCH 33.7(H) 27.1 - 33.3 pg [facility] MCHC 35.7 32.3 - 35.7 g/dL [facility] RDW CV 20.9(H) 11.1 - 14.9 % [facility] RDW SD 68.7(H) 35.7 - 48.1 fL [facility] NRBC abs 10.23(H) 0.00 - 0.01 K/cumm [facility] Morphologic Screen Results confirmed by manual morphology review. [facility] Blood 05/13/2025 1:57 AM CDT 05/13/2025 2:13 AM CDT us Sandy Meraz NP LAB BLOOD ORDERABLES Edited Result - Final [facility] Department [place] [address] * (ABNORMAL) Manual Differential (05/13/2025 1:57 AM CDT) Differential Manual Cells Counted 112 [facility] Neutrophil abs 30.96(H) 1.50 - 6.50 K/cumm [facility] Imm gran abs 4.46(H) 0.00 - 0.10 K/cumm [facility] Lymphocyte abs 5.57(H) 0.80 - 3.30 K/cumm [facility] Monocyte abs 2.23(H) 0.20 - 0.80 K/cumm [facility] Basophil abs 4.46(H) 0.00 - 0.10 K/cumm [facility] Neutrophil pct 25.0 % [facility] Comment: Interpretive Data Percent cell count reference ranges are not reported, since discordance with absolute values may lead to misinterpretation of CBC data. Current Interpretive Data was last revised on 2018. Lymphocyte pct 4.5 % [facility] Comment: Interpretive Data Percent cell count reference ranges are not reported, since discordance with absolute values may lead to misinterpretation of CBC data. Current Interpretive Data was last revised on 2018. Monocyte pct 1.8 % [facility] Comment: Interpretive Data Percent cell count reference ranges are not reported, since discordance with absolute values may lead to misinterpretation of CBC data. Current Interpretive Data was last revised on 2018. Basophil pct 3.6 % [facility] Comment: Interpretive Data Percent cell count reference ranges are not reported, since discordance with absolute values may lead to misinterpretation of CBC data. Current Interpretive Data was last revised on 2018. Myelocyte pct 3.6(H) 0.0 - 0.0 % [facility] Blast pct 61.5(C) 0.0 - 0.0 [facility] Comment:Critical value greene d within last 30 days. Blood 05/13/2025 1:57 AM CDT 05/13/2025 2:18 AM CDT us Sandy Meraz NP LAB BLOOD ORDERABLES Final R esult Performing Organization Address City/[facility]/ZIP Co de Phone Number [facility] Department [place] [address] * RPR Blood (05/13/2025 1:57 AM CDT) RPR Nonreactive Nonreactive Blood 05/13/2025 1:57 AM CDT 05/13/2025 2:13 AM CDT us Alex Yost MD LAB MICROBIOLOGY - GEN ERAL ORDERABLES Final Result Performing Organization Address City/[facility]/ZIP Co de Phone Number [facility] Department [place] [address] * (ABNORMAL) Lactate dehydrogenase (LD) (05/13/2025 1:57 AM CDT) [facility] Lactate dehydrogenase (LDH) 3,935(H) 100 - 250 Units/L Comment:Repeated on Dilution Blood 05/13/2025 1:57 AM CDT 05/13/2025 2:08 AM CDT Alex Yost MD LAB BLOOD ORDERABLES F inal Result Performing Organization Address [facility] Co de Phone Number [facility] [place] [address] * (ABNORMAL) Ferritin (05/13/2025 1:57 AM CDT) [facility] Ferritin 2,626(H) 30 - 400 ng/mL Comment:Repeated on Dilution Blood 05/13/2025 1:57 AM CDT 05/13/2025 2:08 AM CDT us Fab Eden [employer] LAB BLOOD ORDERABLES Final R esult Performing Organization Address [facility] de Phone Number [facility] [place] [address] * (ABNORMAL) POCT glucose (05/13/2025 12:11 AM CDT) [facility] Glucose, POC 200(H) 70 - 199 mg/dL Blood 05/13/2025 12:1 1 AM CDT 05/13/2025 12:11 AM CDT Alex Yost MD LAB POCT ORDERABLES - DEVICE Final Result Performing Organization Address [facility] de Phone Number [facility] [place] [address] * Potassium, whole blood (05/13/2025 12:04 AM CDT) [facility] Potassium, bld 3.3 3.3 - 4.9 mmol/L Blood 05/13/2025 12:0 4 AM CDT 05/13/2025 12:21 AM CDT us Sandy Meraz NP LAB BLOOD ORDERABLES Final R esult Performing Organization Address [facility]/ZIP Co de Phone Number [facility] [place] [address] * eGFR (05/13/2025 12:04 AM CDT) eGFR 83 >=60 mL/min/1. 73 m2 Comment: Interpretive Data [...] of Race in Diagnosing Kidney Disease, JASN 2020). The CKD-EPI equation should not be used for patients with unstable renal function and has not been validated in children and those over 70. Current interpretive data was last reviewed 2021. Blood 05/13/2025 12:0 4 AM CDT 05/13/2025 12:27 AM CDT us Alex Yost MD LAB BLOOD ORDERABLES F inal Result Performing Organization Address City/[facility]/ZIP Co de Phone Number [facility] [place] [address] * Critical Result Callback Chemistry (05/13/2025 12:04 AM CDT) Date Notified [id number] Time Notified 107 [facility] TestName Potassium Plas [facility] Called/Read Back Candy Burns [facility] Credentials RN [facility] Called By NUNO [facility] Blood 05/13/2025 12:0 4 AM CDT 05/13/2025 12:27 AM CDT us Alex Yost MD LAB BLOOD ORDERABLES F inal Result Performing Organization Address City/[facility] Co de Phone Number [facility] [place] [address] * Uric acid (05/13/2025 12:04 AM CDT) Uric acid 3.7 3.0 - 8.0 mg/dL Blood 05/13/2025 12:0 4 AM CDT 05/13/2025 12:22 AM CDT Narrative [facility] - 05/13/2025 1:04 AM CDT Q8hr TLS labs us Sandy Meraz NP LAB BLOOD ORDERABLES Final R esult Performing Organization Address [facility] de Phone Number [facility] [place] [address] * Phosphorus (05/13/2025 12:04 AM CDT) Phosphorus, pl 3.9 2.3 - 4.5 mg/dL Blood 05/13/2025 12:0 4 AM CDT 05/13/2025 12:22 AM CDT us Sandy Meraz NP LAB BLOOD ORDERABLES Final R esult Performing Organization Address [facility] Co de Phone Number [facility] [place] [address] * (ABNORMAL) Basic metabolic panel (05/13/2025 12:04 AM CDT) Sodium 134(L) 135 - 145 mmol/L Potassium, pl 6.4(C) 3.3 - 4.9 mmol/L [facility] Comment: Repeated and Verified Potassium results may be falsely elevated in the presence of leukocytosis: WBC >50 K/cumm. Suggest sending whole blood Potassium, if available. Chloride 97 97 - 110 mmol/L [facility] CO2 31 22 - 32 mmol/L [facility] Anion gap 6 2 - 15 mmol/L [facility] BUN 24 6 - 25 mg/dL [facility] Creatinine 1.04 0.80 - 1.30 mg/dL [facility] Glucose 177 70 - 199 mg/dL [facility] Comment: Interpretive Data Fasting glucose >/= 126 [...] classification and Diagnosis of Diabetes Diabetes Care 202; 46: S19-S40. Current interpretive data was last revised 2022. Calcium 8.3(L) 8.5 - 10.3 mg/dL [facility] Blood 05/13/2025 12:0 4 AM CDT 05/13/2025 12:22 AM CDT Alex Yost MD LAB BLOOD ORDERABLES E dited Result - Final [facility] [place] [address] * (ABNORMAL) Immature platelet fraction (05/12/2025 8:29 PM CDT) Pathologist [facility] IPF 20.3(H) 1.6 - 10.1 % Blood 05/12/2025 8:29 PM CDT 05/12/2025 8:57 PM CDT Fab Eden [employer] LAB BLOOD ORDERABLES Final R esult Performing Organization Address City/[facility] Co de Phone Number [facility] [address] * (ABNORMAL) Blood smear review (05/12/2025 8:29 PM CDT) RBC morphology Present(A ) Anisocytosis Slight(A) [facility] Poikilocytosis Slight(A) [facility] Microcytes 3-7/HPF(A ) [facility] Macrocytes 3-7/HPF(A ) [facility] Schistocytes 1-2/HPF(A ) [facility] Platelet estimate Decreased (A) [facility] Blood 05/12/2025 8:29 PM CDT 05/12/2025 8:57 PM CDT Fab Eden [employer] LAB BLOOD ORDERABLES Final R esult Performing Organization Address City/[facility] Co de Phone Number [facility] [place] [address] * Potassium, whole blood (05/12/2025 8:29 PM CDT) Pathologist [facility] Potassium, bld 3.4 3.3 - 4.9 mmol/L Blood 05/12/2025 8:29 PM CDT 05/12/2025 8:43 PM CDT Fab Eden [employer] LAB BLOOD ORDERABLES Final R esult Performing Organization Address City/[facility] Co de Phone Number ANGELA [facility] [place] [address] * (ABNORMAL) CBC without differential (05/12/2025 8:29 PM CDT) WBC 134.00(C) 3.80 - 9.90 K/cumm Comment:Critical value greene d within last 72 hrs Hgb 7.0(L) 13.0 - 17.5 g/dL [facility] Hct 20.1(L) 38.9 - 50.3 % [facility] Plt 20(C) 150 - 400 K/cumm [facility] Comment:Platelet count confi rmed by additional testing. Critical platelet count threshold determined by patient location: Outpatient:<50 K/cumm , Inpatient adults:<20 K/cumm , Inpatient pediatric:<25 K/cumm, BMT service:<10 K/cumm MPV Not Measured 9.1 - 12.3 fL [facility] RBC 2.12(L) 4.30 - 5.80 M/cumm [facility] MCV 94.8 81.3 - 96.4 fL [facility] Comment:MCV delta due to laura arent blood transfusion. MCH 33.0 27.1 - 33.3 pg [facility] MCHC 34.8 32.3 - 35.7 g/dL [facility] RDW CV 20.4(H) 11.1 - 14.9 % [facility] RDW SD 68.2(H) 35.7 - 48.1 fL [facility] NRBC abs 11.04(H) 0.00 - 0.01 K/cumm [facility] Blood 05/12/2025 8:29 PM CDT 05/12/2025 8:53 PM CDT us Fab Eden [employer] LAB BLOOD ORDERABLES Final R esult Performing Organization Address City/[facility] Co de Phone Number [facility] Department [place] [address] * POCT glucose (05/12/2025 7:59 PM CDT) [facility] Signature Glucose, POC 191 70 - 199 mg/dL Blood 05/12/2025 7:59 PM CDT 05/12/2025 7:59 PM CDT us Alex Yost MD LAB POCT ORDERABLES - DEVICE Final Result Performing Organization Address [facility]/State/ZIP Co de Phone Number [facility] [place] [address] * (ABNORMAL) Lactate dehydrogenase (LD) (05/12/2025 5:29 PM CDT) [facility] Lactate dehydrogenase (LDH) 4,170(H) 100 - 250 Units/L Comment:Repeated on Dilution Blood 05/12/2025 5:29 PM CDT 05/12/2025 5:44 PM CDT us Fab Eden [employer] LAB BLOOD ORDERABLES Final R esult Performing Organization Address [facility] [place] [address] * Prepare RBC: 1 Units (05/12/2025 5:27 PM CDT) [facility] Product code [id number] Unit Number [id number] [facility] Product Blood Type BPOS [facility] Dispense Status PRESUMED TRANSFUSED [facility] Blood 05/12/2025 5:27 PM CDT 05/12/2025 5:27 PM CDT Narrative [facility] - 05/13/2025 6:00 AM CDT Are special requirements needed? (All products are leukoreduced and CMV- safe)- >No Date required:-[id number] LRRBC # of [id number] Reasons:-Hgb <7 g/dL} us Sandy Meraz [employer] BLOOD BANK PRODUCT ORDERABLE S Final Result Performing Organization Address [facility] Co de Phone Number [facility] [place], [place] [id number] * (ABNORMAL) Immature platelet fraction (05/12/2025 4:48 PM CDT) [facility] IPF 21.4(H) 1.6 - 10.1 % Blood 05/12/2025 4:48 PM CDT 05/12/2025 5:02 PM CDT Alex Yost MD LAB BLOOD ORDERABLES F inal Result Performing Organization Address [facility]/ZIP Co de Phone Number [facility] Department [place] [address] * Blood product CBC (05/12/2025 4:48 PM CDT) WBC, product 306.7 K/cumm Comment:Critical value greene d within last 72 hrs RBC, product 0.26 M/cumm [facility] Hgb, product 0.7 g/dL [facility] Comment:Critical value greene d within last 72 hrs This result has been called to SOP by [id number] on 05/12/2025 17:04:21. Cryo . Hct, product 2.7 % [facility] MCV, product 103.8 fL [facility] Plt, product 58 K/cumm [facility] Comment:This result has been called to SOP by [id number] on 05/12/2025 17:04:21. Cryo . Neut pct, product 9.0 % [facility] ImmGran pct, product 13.7 % [facility] Lymph pct, product 15.8 % [facility] [place] pct, product 61.5 % [facility] Eos pct, product 0.0 % [facility] Baso pct, product 0.0 % [facility] Blood 05/12/2025 4:48 PM CDT 05/12/2025 4:53 PM CDT Alex Yost MD LAB BLOOD ORDERABLES F inal Result ANGELA [facility] Department [place] [address] * (ABNORMAL) Potassium, whole blood (05/12/2025 4:48 PM CDT) Potassium, bld 3.2(L) 3.3 - 4.9 mmol/L Blood 05/12/2025 4:48 PM CDT 05/12/2025 4:53 PM CDT us Sandy Meraz [employer] LAB BLOOD ORDERABLES Final R esult [facility] Department [place] [address] * (ABNORMAL) Differential, auto (05/12/2025 4:48 PM CDT) Neutrophil abs 38.92(H) 1.50 - 6.50 K/cumm Imm gran abs 15.08(H) 0.00 - 0.10 K/cumm [facility] Lymphocyte abs 24.93(H) 0.80 - 3.30 K/cumm [facility] Monocyte abs 59.16(H) 0.20 - 0.80 K/cumm [facility] Eosinophil abs 0.40 0.00 - 0.50 K/cumm [facility] Basophil abs 0.22(H) 0.00 - 0.10 K/cumm [facility] Neutrophil pct 27.9 % [facility] Comment: Interpretive Data Percent cell count reference ranges are not reported, since discordance with absolute values may lead to misinterpretation of CBC data. Current Interpretive Data was last revised on 2018. Imm gran pct 10.9 % [facility] Comment: Interpretive Data Percent cell count reference ranges are not reported, since discordance with absolute values may lead to misinterpretation of CBC data. Current Interpretive Data was last revised on 2018. Lymphocyte pct 18.0 % [facility] Comment: Interpretive Data Percent cell count reference ranges are not reported, since discordance with absolute values may lead to misinterpretation of CBC data. Current Interpretive Data was last revised on 2018. Monocyte pct 42.7 % [facility] Comment: Interpretive Data Percent cell count reference ranges are not reported, since discordance with absolute values may lead to misinterpretation of CBC data. Current Interpretive Data was last revised on 2018. Eosinophil pct 0.3 % [facility] Comment: Interpretive Data Percent cell count reference ranges are not reported, since discordance with absolute values may lead to misinterpretation of CBC data. Current Interpretive Data was last revised on 2018. Basophil pct 0.2 % [facility] Comment: Interpretive Data Percent cell count reference ranges are not reported, since discordance with absolute values may lead to misinterpretation of CBC data. Current Interpretive Data was last revised on 2018. Blood 05/12/2025 4:48 PM CDT 05/12/2025 4:57 PM CDT us Alex Yost MD LAB BLOOD ORDERABLES F inal Result [facility] Department [place] [address] * (ABNORMAL) CBC with auto differential (05/12/2025 4:48 PM CDT) WBC 138.71(C) 3.80 - 9.90 K/cumm Comment:Critical value greene d within last 72 hrs Hgb 5.7(C) 13.0 - 17.5 g/dL [facility] Comment:Critical value greene d within last 72 hrs Hct 16.6(L) 38.9 - 50.3 % [facility] Plt 24(C) 150 - 400 K/cumm [facility] Comment: Consistent with previous result. Platelet count confirmed by additional testing. Critical platelet count threshold determined by patient location: Outpatient:<50 K/cumm , Inpatient adults:<20 K/cumm , Inpatient pediatric:<25 K/cumm, BMT service:<10 K/cumm MPV 10.4 9.1 - 12.3 fL [facility] RBC 1.66(L) 4.30 - 5.80 M/cumm [facility] MCV 100.0(H) 81.3 - 96.4 fL [facility] MCH 34.3(H) 27.1 - 33.3 pg [facility] MCHC 34.3 32.3 - 35.7 g/dL [facility] RDW CV 21.5(H) 11.1 - 14.9 % [facility] RDW SD 77.2(H) 35.7 - 48.1 fL [facility] NRBC abs 11.69(H) 0.00 - 0.01 K/cumm [facility] Blood 05/12/2025 4:48 PM CDT 05/12/2025 4:57 PM CDT Narrative [facility] - 05/12/2025 5:46 PM CDT Instructions:->Post procedure Alex Yost MD LAB BLOOD ORDERABLES F inal Result Performing Organization Address City/[facility]/ZIP Co de Phone Number [facility] [place] [address] * Uric acid (05/12/2025 4:48 PM CDT) Uric acid 5.8 3.0 - 8.0 mg/dL Blood 05/12/2025 4:48 PM CDT 05/12/2025 4:58 PM CDT Narrative [facility] - 05/12/2025 5:27 PM CDT Q8hr TLS labs Sandy Meraz NP LAB BLOOD ORDERABLES Final R esult Performing Organization Address [facility] Co de Phone Number [facility] [place] [address] * Phosphorus (05/12/2025 4:48 PM CDT) Phosphorus, pl 3.2 2.3 - 4.5 mg/dL Blood 05/12/2025 4:48 PM CDT 05/12/2025 4:58 PM CDT Sandy Meraz NP LAB BLOOD ORDERABLES Final R esult Performing Organization Address City/[facility]/ZIP Co de Phone Number [facility] [place] [address] * (ABNORMAL) POCT glucose (05/12/2025 3:37 PM CDT) Pathologist [facility] Glucose, POC 203(H) 70 - 199 mg/dL Blood 05/12/2025 3:37 PM CDT 05/12/2025 3:[address] [facility] Alex Yost MD LAB POCT ORDERABLES - DEVICE Final Result Performing Organization Address City/[facility] Co de Phone Number [facility] [place] [address] * (ABNORMAL) Immature platelet fraction (05/12/2025 2:38 PM CDT) [facility] IPF 22.1(H) 1.6 - 10.1 % Blood 05/12/2025 2:38 PM CDT 05/12/2025 2:[address] [facility] Alex Yost MD LAB BLOOD ORDERABLES F inal Result Performing Organization Address [facility] Co de Phone Number [facility] [place] [address] * (ABNORMAL) Calcium, ionized, whole blood (05/12/2025 2:38 PM CDT) [facility] Ca, ionized, bld 4.38(L) 4.50 - 5.10 mg/dL Blood 05/12/2025 2:38 PM CDT 05/12/2025 2:49 PM CDT Narrative [facility] - 05/12/2025 2:52 PM CDT For apheresis nurse only, please draw mid procedure ica Result [facility] Alex Yost MD LAB BLOOD ORDERABLES F inal Result Performing Organization Address [facility] Co de Phone Number [place] [address] * (ABNORMAL) Differential, auto (05/12/2025 2:38 PM CDT) Neutrophil abs 38.41(H) 1.50 - 6.50 K/cumm Imm gran abs 18.15(H) 0.00 - 0.10 K/cumm [facility] Lymphocyte abs 44.55(H) 0.80 - 3.30 K/cumm [facility] Monocyte abs 89.10(H) 0.20 - 0.80 K/cumm [facility] Eosinophil abs 0.12 0.00 - 0.50 K/cumm [facility] Basophil abs 0.41(H) 0.00 - 0.10 K/cumm [facility] Neutrophil pct 20.1 % [facility] Comment: Interpretive Data Percent cell count reference ranges are not reported, since discordance with absolute values may lead to misinterpretation of CBC data. Current Interpretive Data was last revised on 2018. Imm gran pct 9.5 % [facility] Comment: Interpretive Data Percent cell count reference ranges are not reported, since discordance with absolute values may lead to misinterpretation of CBC data. Current Interpretive Data was last revised on 2018. Lymphocyte pct 23.4 % [facility] Comment: Interpretive Data Percent cell count reference ranges are not reported, since discordance with absolute values may lead to misinterpretation of CBC data. Current Interpretive Data was last revised on 2018. Monocyte pct 46.7 % [facility] Comment: Interpretive Data Percent cell count reference ranges are not reported, since discordance with absolute values may lead to misinterpretation of CBC data. Current Interpretive Data was last revised on 2018. Eosinophil pct 0.1 % [facility] Comment: Interpretive Data Percent cell count reference ranges are not reported, since discordance with absolute values may lead to misinterpretation of CBC data. Current Interpretive Data was last revised on 2018. Basophil pct 0.2 % [facility] Comment: Interpretive Data Percent cell count reference ranges are not reported, since discordance with absolute values may lead to misinterpretation of CBC data. Current Interpretive Data was last revised on 2018. Blood 05/12/2025 2:38 PM CDT 05/12/2025 2:49 PM CDT Alex Yost MD LAB BLOOD ORDERABLES F inal Result [facility] Department [place] [address] * (ABNORMAL) CBC with auto differential (05/12/2025 2:38 PM CDT) [facility] WBC 190.74(C) 3.80 - 9.90 K/cumm Comment:Critical value greene d within last 72 hrs Critical value called within last 72 hrs Hgb 5.2(C) 13.0 - 17.5 g/dL [facility] Comment:Critical value greene d within last 72 hrs Critical value called within last 72 hrs Hct 15.5(L) 38.9 - 50.3 % [facility] Plt 29(C) 150 - 400 K/cumm [facility] Comment:Platelet count confi rmed by additional testing. Critical platelet count threshold determined by patient location: Outpatient:<50 K/cumm , Inpatient adults:<20 K/cumm , Inpatient pediatric:<25 K/cumm, BMT service:<10 K/cumm MPV Not Measured 9.1 - 12.3 fL [facility] RBC 1.55(L) 4.30 - 5.80 M/cumm [facility] MCV 100.0(H) 81.3 - 96.4 fL [facility] MCH 33.5(H) 27.1 - 33.3 pg [facility] MCHC 33.5 32.3 - 35.7 g/dL [facility] RDW CV 22.3(H) 11.1 - 14.9 % [facility] RDW SD 77.0(H) 35.7 - 48.1 fL [facility] NRBC abs 11.67(H) 0.00 - 0.01 K/cumm [facility] Blood 05/12/2025 2:38 PM CDT 05/12/2025 2:49 PM CDT Alex Yost MD LAB BLOOD ORDERABLES F inal Result Performing Organization Address [facility] Co de Phone Number [facility] [place] [address] * POCT glucose (05/12/2025 11:45 AM CDT) Glucose, POC 163 70 - 199 mg/dL Blood 05/12/2025 11:4 5 AM CDT 05/12/2025 11:45 AM CDT Alex Yost MD LAB POCT ORDERABLES - DEVICE Final Result Performing Organization Address [facility] de Phone Number [facility] [place] [address] * (ABNORMAL) Immature platelet fraction (05/12/2025 11:12 AM CDT) IPF 22.6(H) 1.6 - 10.1 % Blood 05/12/2025 11:1 2 AM CDT 05/12/2025 2:31 PM CDT Sandy Meraz NP LAB BLOOD ORDERABLES Final R esult Performing Organization Address [facility] de Phone Number ANGELA [facility] Department [place] [address] * (ABNORMAL) Potassium, whole blood (05/12/2025 11:12 AM CDT) Potassium, bld 6.7(C) 3.3 - 4.9 mmol/L Blood 05/12/2025 11:1 2 AM CDT 05/12/2025 11:16 AM CDT Sandy Meraz NP LAB BLOOD ORDERABLES Final R esult Performing Organization Address [facility]/State/ZIP Co de Phone Number [facility] Department [place] [address] * Critical Result Callback Chemistry (05/12/2025 11:12 AM CDT) Pathologist [facility] Date Notified [id number] Time Notified 1119 [facility] TestName Potassium WB [facility] Called/Read Back Zelda MILLER [facility] Credentials RN [facility] Called By KG ANGELA [facility] Blood 05/12/2025 11:1 2 AM CDT 05/12/2025 11:16 AM CDT us Sandy Meraz NP LAB BLOOD ORDERABLES Final R esult Performing Organization Address [facility] Co de Phone Number [facility] Department [place] [address] * Senior staff review (05/12/2025 11:12 AM CDT) [facility] Senior Staff Review Specimen Blood Senior Staff Review Review Done [facility] Comment:Reviewed by senior s taff.05/12/2025 15:11:45 CDT by GP. Blood 05/12/2025 11:1 2 AM CDT 05/12/2025 2:31 PM CDT us Alex Yost MD LAB BLOOD ORDERABLES F inal Result Performing Organization Address City/[facility] Co de Phone Number [facility] Department [place] [address] * (ABNORMAL) Manual Differential (05/12/2025 11:12 AM CDT) Pathologist [facility] Differential Manual Cells Counted 100 [facility] Neutrophil abs 24.48(H) 1.50 - 6.50 K/cumm [facility] Imm gran abs 16.32(H) 0.00 - 0.10 K/cumm [facility] Lymphocyte abs 21.76(H) 0.80 - 3.30 K/cumm [facility] Monocyte abs 16.32(H) 0.20 - 0.80 K/cumm [facility] Basophil abs 5.44(H) 0.00 - 0.10 K/cumm [facility] Neutrophil pct 9.0 % [facility] Comment: Interpretive Data Percent cell count reference ranges are not reported, since discordance with absolute values may lead to misinterpretation of CBC data. Current Interpretive Data was last revised on 2018. Lymphocyte pct 8.0 % [facility] Comment: Interpretive Data Percent cell count reference ranges are not reported, since discordance with absolute values may lead to misinterpretation of CBC data. Current Interpretive Data was last revised on 2018. Monocyte pct 6.0 % [facility] Comment: Interpretive Data Percent cell count reference ranges are not reported, since discordance with absolute values may lead to misinterpretation of CBC data. Current Interpretive Data was last revised on 2018. Basophil pct 2.0 % [facility] Comment: Interpretive Data Percent cell count reference ranges are not reported, since discordance with absolute values may lead to misinterpretation of CBC data. Current Interpretive Data was last revised on 2018. Metamyelocyte pct 1.0(H) 0.0 - 0.0 % [facility] Myelocyte pct 5.0(H) 0.0 - 0.0 % [facility] Blast pct 69.0(C) 0.0 - 0.0 [facility] Comment:Critical value greene d within last 30 days. Blood 05/12/2025 11:1 2 AM CDT 05/12/2025 2:31 PM CDT us Sandy Meraz [employer] LAB BLOOD ORDERABLES Final R esult ANGELA [facility] Department [place] [address] * (ABNORMAL) CBC without differential (05/12/2025 11:12 AM CDT) WBC 272.03(C) 3.80 - 9.90 K/cumm Comment:Critical value greene d within last 72 hrs Hgb 5.3(C) 13.0 - 17.5 g/dL [facility] Comment:Critical value greene d within last 72 hrs Hct 16.1(L) 38.9 - 50.3 % [facility] Plt 45(C) 150 - 400 K/cumm [facility] Comment:Platelet count confi rmed by additional testing. Critical platelet count threshold determined by patient location: Outpatient:<50 K/cumm , Inpatient adults:<20 K/cumm , Inpatient pediatric:<25 K/cumm, BMT service:<10 K/cumm MPV 12.0 9.1 - 12.3 fL [facility] RBC 1.60(L) 4.30 - 5.80 M/cumm [facility] MCV 100.6(H) 81.3 - 96.4 fL [facility] MCH 33.1 27.1 - 33.3 pg [facility] MCHC 32.9 32.3 - 35.7 g/dL [facility] RDW CV 22.3(H) 11.1 - 14.9 % [facility] RDW SD 78.4(H) 35.7 - 48.1 fL [facility] NRBC abs 12.19(H) 0.00 - 0.01 K/cumm [facility] Blood 05/12/2025 11:1 2 AM CDT 05/12/2025 2:31 PM CDT Sandy Meraz NP LAB BLOOD ORDERABLES Edited Result - Final [facility] Department [place] [address] * AR INSJ NON-TUNNELED CENTRAL VENOUS CATH AGE 5 YR/> (05/12/2025 10:57 AM CDT) Narrative Alex Yost MD - 05/12/2025 10:57 AM CDT Alex Yost MD 05/12/2025 12:49 PM Central Line Insertion Date/Time: 05/12/2025 10:57 AM Performed by: Sarah Murillo MD Authorized by: Sarah Murillo MD [place] Protocol: RN Notified of Procedure: yes Informed consent: Risks, benefits, alternatives discussed and patient/energy conservation representative/guardian agrees and accepts Patient's stated name/ matches armband: Yes Allergies confirmed: yes Consent form signed, dated, timed; matches correct patient, intended procedure and site: Yes Lab/Diag test results: Pertinent lab/diag tests reviewed and match to patient identifiersImmediately prior to the procedure a time out was called: a verbal verification by the procedure participants confirmed correct patient identity, correct site/side marked and visible (if applicable); agreement on procedure to be done; and correct patient positioning Have non- routine considerations been assessed?: Yes Indications: pheresis. Anesthesia (see MAR for exact dosage) Anesthesia method: Local infiltration Local anesthetic: Lidocaine 1% Patient position: Flat Skin preparation: Skin prepped with 2% chlorhexidine Provider preparation: Cap, full body drape, gloves, gown, handwashing and mask Location: Right internal jugular Ultrasound guidance: Real-time needle guidance and pre-procedure diagnostic Assessment: Blood return through all ports, free fluid flow and placement verified by x-ray Catheter type: Dialysis catheter Needle inserted, vein idenitified then guidewire inserted easily into vein: Yes Number of attempts: 1 Successful placement: Yes Catheter secured at (cm): 15 Catheter length (cm): 15 Line securement: Line sutured and dressing applied Patient tolerance: Patient tolerated the procedure well with no immediate complications Post Procedure Debrief: All guidewires, needles, sponges or other items are accounted for: yes us Sarah Murillo MD IN CLINIC/BEDSIDE [facility] Final Result * Transfuse RBC (05/12/2025 10:54 AM CDT) Blood us Sandy Meraz NP BLOOD TRANSFUSION ORDERABLES Final Result ANGELA [facility] [place] [address] * Transfuse RBC (05/12/2025 10:07 AM CDT) Blood us Fab RodriguezGilberto Eden [employer] BLOOD TRANSFUSION ORDERABLES Final Result ANGELA DUNAWAY [facility] Department [place] [address] * FLT3 Mutation Detection by PCR (05/12/2025 9:52 AM CDT) FLT3 See Footnote Comment:RESULT: see interpre tation FLT3 final diagnosis See Footnote ANGELA DUNAWAY Comment: Peripheral blood, FLT3 mutation analysis: Positive. 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 The FLT3-ITD allelic ratio (mutated to un-mutated peak height ratio) is: 0.7 No genetic alteration involving codon D835 and/or I836 in the tyrosine kinase domain (FLT3-TKD) was detected. Comments: FLT3-ITD occurs in approximately 20-30% of acute myeloid leukemia (AML) patients and is associated with adverse prognosis, particularly in patients with normal or intermediate risk karyotype (Frohling et al., 2002, [id number]; Schjayek et al., 2008, [id number]; Kong et al., 2012, [id number]; Estey et al., 2013, [id number]; Diomedes et al., 2013, [id number]). FLT3-ITD prognostic significance may be further modified by allelic ratio of (mutated to un-mutated) alleles (Schlenk et al., 2014, [id number]; Carmina et al., 2006, [id number]; Raoe et al., 2002, [id number]). For adult AML patients harboring a FLT3-ITD and/or TKD mutation, midostaurin was approved by the FDA for in combination therapy with standard cytarabine and daunorubicin induction, and cytarabine consolidation in newly diagnosed patients. Gilteritinib was also approved in refractory or relapsed patients. FDA has recently approved quizartinib with standard cytarabine and anthracycline induction and cytarabine consolidation, and as maintenance monotherapy following consolidation chemotherapy, for adult AML patients harboring FLT3-ITD mutation(s). Multiple FLT3 inhibitors are undergoing evaluation in clinical studies (ClinicalTrials.gov; Amos and Joseph, 2019, [id number]; Ding et al., 2018 [id number]). Signing Pathologist: Virgil Hui M.D. ADDITIONAL INFORMATION Method summary - Genomic DNA was extracted and a qualitative PCR-based assay performed that detects the presence of two separate mutations in the fms-related tyrosine kinase 3 gene (FLT3): (1) internal tandem duplication (ITD) of coding sequence in a susceptible region of the intracellular juxtamembrane domain and (2) point mutations in the codon for [id number]. Note: In positive cases with multiple FLT3-ITD peaks, the reported height reflects the total height of the ITD peaks in comparison to the height of the unmutated wild type peak. The analytic sensitivity of this assay is approximately 5% for FLT3-ITD and FLT3-D835. This assay does not detect ITD mutations greater than 420 bp in size. This test was developed and its performance characteristics determined by [facility] in a manner consistent with CLIA requirements. This test has not been cleared or approved by the U.S. Food and Drug Administration. Test Performed by: [facility] [place] [address] [place] Feeder: Christa Adames Ph.D.; CLIA# [id number] FLT3 specimen type blood [facility] Blood 05/12/2025 9:52 AM CDT 05/12/2025 11:06 AM CDT Alex Yost MD LAB BODY FLUIDS AND ST OOLS ORDERABLES Final Result [facility] [place] [address] * eGFR (05/12/2025 9:52 AM CDT) eGFR 74 >=60 mL/min/1. 73 m2 Comment: Sample investigated and found to be analytically accurate. If results do not match clinical presentation, improper collection (e.g., IV fluid contamination, improper tube type, mislabel) should be considered and re-collection recommended. Interpretive Data Reference Interval Normal >/= 90 [...] of Race in Diagnosing Kidney Disease, JASN 2020). The CKD-EPI equation should not be used for patients with unstable renal function and has not been validated in children and those over 70. Current interpretive data was last reviewed 2021. Blood 05/12/2025 9:52 AM CDT 05/12/2025 9:59 AM CDT us Fab Eden [employer] LAB BLOOD ORDERABLES Edited Result - Final [facility] Department [place] [address] * (ABNORMAL) Basic metabolic panel (05/12/2025 9:52 AM CDT) Sodium 125(L) 135 - 145 mmol/L Comment:Sample investigated and found to be analytically accurate. If results do not match clinical presentation, improper collection (e.g., IV fluid contamination, improper tube type, mislabel) should be considered and re-collection recommended. Potassium, pl >10.0(C) 3.3 - 4.9 mmol/L ANGELA DUNAWAY Comment: Repeated and Verified Potassium results may be falsely elevated in the presence of leukocytosis: WBC >50 K/cumm. Suggest sending whole blood Potassium, if available. Critical result called to and read back by VICENTE (S) on 05/12/2025 10:45:09 CDT to Yesika Johnson RN. Sample investigated and found to be analytically accurate. If results do not match clinical presentation, improper collection (e.g., IV fluid contamination, improper tube type, mislabel) should be considered and re-collection recommended. Chloride 100 97 - 110 mmol/L [facility] Comment:Sample investigated and found to be analytically accurate. If results do not match clinical presentation, improper collection (e.g., IV fluid contamination, improper tube type, mislabel) should be considered and re-collection recommended. CO2 29 22 - 32 mmol/L [facility] Comment:Sample investigated and found to be analytically accurate. If results do not match clinical presentation, improper collection (e.g., IV fluid contamination, improper tube type, mislabel) should be considered and re-collection recommended. Anion gap <1(L) 2 - 15 mmol/L [facility] Comment:Sample investigated and found to be analytically accurate. If results do not match clinical presentation, improper collection (e.g., IV fluid contamination, improper tube type, mislabel) should be considered and re-collection recommended. BUN 18 6 - 25 mg/dL [facility] Comment:Sample investigated and found to be analytically accurate. If results do not match clinical presentation, improper collection (e.g., IV fluid contamination, improper tube type, mislabel) should be considered and re-collection recommended. Creatinine 1.15 0.80 - 1.30 mg/dL [facility] Comment:Sample investigated and found to be analytically accurate. If results do not match clinical presentation, improper collection (e.g., IV fluid contamination, improper tube type, mislabel) should be considered and re-collection recommended. Glucose 135 70 - 199 mg/dL [facility] Comment: Sample investigated and found to be analytically accurate. If results do not match clinical presentation, improper collection (e.g., IV fluid contamination, improper tube type, mislabel) should be considered and re-collection recommended. Interpretive Data Fasting glucose >/= 126 mg/dl [...] classification and Diagnosis of Diabetes Diabetes Care 202; 46: S19-S40. Current interpretive data was last revised 2022. Calcium 7.4(L) 8.5 - 10.3 mg/dL [facility] Comment:Sample investigated and found to be analytically accurate. If results do not match clinical presentation, improper collection (e.g., IV fluid contamination, improper tube type, mislabel) should be considered and re-collection recommended. Blood 05/12/2025 9:52 AM CDT 05/12/2025 9:59 AM CDT us Fab Eden [employer] LAB BLOOD ORDERABLES Edited Result - Final Performing Organization Address [facility]/ZIP Co de Phone Number [facility] [employer] [place] [address] * Prepare RBC: 1 Units (05/12/2025 9:29 AM CDT) Product code [id number] Unit Number [id number] [facility] Product Blood Type BPOS [facility] Dispense Status PRESUMED TRANSFUSED [facility] Blood 05/12/2025 9:29 AM CDT 05/12/2025 9:28 AM CDT Narrative [facility] - 05/13/2025 12:57 AM CDT Are special requirements needed? (All products are leukoreduced and CMV- safe)- >No Date required:-[id number] LRRBC # of [id number] Reasons:-Hgb <7 g/dL} us Sandy Meraz NP BLOOD BANK PRODUCT ORDERABLE S Final Result [facility] [employer] [place] [address] * XR Chest 1 View (05/12/2025 9:03 AM CDT) Anatomical Region Laterality Modality Body, Chest N/A Computed Radiogr aphy 05/12/2025 9:23 AM CDT Impressions 05/12/2025 9:23 AM CDT Comparison 05/12/2025 2:12 AM. New right internal jugular central venous catheter seen with tip overlying the superior vena cava. Left subclavian transvenous pacemaker with right atrial and right ventricular leads again noted. Mild to moderate bibasilar patchy lung opacities increased, possibly secondary to an inflammatory or infectious process. Differential diagnosis includes mild pulmonary edema. No pneumothorax or pleural effusion seen. Cardiomediastinal silhouette stable. Electronically signed by: Thompson Lamas M.D. Narrative 05/12/2025 9:23 AM CDT EXAMINATION: 1 view chest radiograph Procedure Note Thompson Lamas MD - 05/12/2025 EXAMINATION: 1 view chest radiograph IMPRESSION: Comparison 05/12/2025 2:12 AM. New right internal jugular central venous catheter seen with tip overlying the superior vena cava. Left subclavian transvenous pacemaker with right atrial and right ventricular leads again noted. Mild to moderate bibasilar patchy lung opacities increased, possibly secondary to an inflammatory or infectious process. Differential diagnosis includes mild pulmonary edema. No pneumothorax or pleural effusion seen. Cardiomediastinal silhouette stable. Electronically signed by: Thompson Lamas M.D. us Sandy Meraz NP IMG XR PROCEDURES Final Resu lt * G6PD qualitative with reflex to quantitative (05/12/2025 8:50 AM CDT) G6PD Normal Normal Comment: Interp data: G6PD activity should be interpreted in the context of a patient's hematocrit. Hematocrit < 20% may lead to a falsely deficient result, while hematocrit > 50% may lead to a falsely normal result. Current interpretive data was last revised on 2020. Blood 05/12/2025 8:50 AM CDT 05/12/2025 8:59 AM CDT us Alex Yost MD LAB BLOOD ORDERABLES F inal Result [facility] Department [place] [address] * Senior staff review (05/12/2025 8:50 AM CDT) Pathologist [facility] Senior Staff Review Specimen Blood Senior Staff Review Review Done [facility] Comment:Reviewed by senior bishop sparrow.05/12/2025 15:01:37 CDT by GP. Blood 05/12/2025 8:50 AM CDT 05/12/2025 10:49 AM CDT Alex Yost MD LAB BLOOD ORDERABLES F inal Result [facility] [place] [address] * (ABNORMAL) Manual Differential (05/12/2025 8:50 AM CDT) Pathologist [facility] Differential Manual Cells Counted 118 [facility] Neutrophil abs 26.79(H) 1.50 - 6.50 K/cumm [facility] Imm gran abs 10.71(H) 0.00 - 0.10 K/cumm [facility] Lymphocyte abs 2.52 0.80 - 3.30 K/cumm [facility] Monocyte abs 5.36(H) 0.20 - 0.80 K/cumm [facility] Basophil abs 7.88(H) 0.00 - 0.10 K/cumm [facility] Neutrophil pct 8.5 % [facility] Comment: Interpretive Data Percent cell count reference ranges are not reported, since discordance with absolute values may lead to misinterpretation of CBC data. Current Interpretive Data was last revised on 2018. Lymphocyte pct 0.8 % [facility] Comment: Interpretive Data Percent cell count reference ranges are not reported, since discordance with absolute values may lead to misinterpretation of CBC data. Current Interpretive Data was last revised on 2018. Monocyte pct 1.7 % [facility] Comment: Interpretive Data Percent cell count reference ranges are not reported, since discordance with absolute values may lead to misinterpretation of CBC data. Current Interpretive Data was last revised on 2018. Basophil pct 2.5 % [facility] Comment: Interpretive Data Percent cell count reference ranges are not reported, since discordance with absolute values may lead to misinterpretation of CBC data. Current Interpretive Data was last revised on 2018. Myelocyte pct 3.4(H) 0.0 - 0.0 % [facility] Blast pct 83.1(C) 0.0 - 0.0 [facility] Comment:Critical value greene d within last 30 days. Smudge cells, qual Present(A) [facility] RBC morphology Present(A) [facility] Anisocytosis Moderate(A ) [facility] Poikilocytosis Slight(A) [facility] Macrocytes 8-15/HPF(A ) [facility] Schistocytes 1-2/HPF(A) [facility] Teardrop cells 3-7/HPF(A) [facility] Platelet estimate Decreased( A) [facility] Blood 05/12/2025 8:50 AM CDT 05/12/2025 10:49 AM CDT us Alex Yost MD LAB BLOOD ORDERABLES F inal Result [facility] Department [place] [address] * (ABNORMAL) CBC without differential (05/12/2025 8:50 AM CDT) WBC 315.14(C) 3.80 - 9.90 K/cumm Comment:Critical value greene d within last 72 hrs Hgb 4.9(C) 13.0 - 17.5 g/dL [facility] Comment:Critical value greene d within last 72 hrs Hct 14.7(L) 38.9 - 50.3 % [facility] Plt 53(L) 150 - 400 K/cumm [facility] Comment:No clot detected in sample. MPV 11.4 9.1 - 12.3 fL [facility] RBC 1.41(L) 4.30 - 5.80 M/cumm [facility] MCV 104.3(H) 81.3 - 96.4 fL [facility] MCH 34.8(H) 27.1 - 33.3 pg [facility] MCHC 33.3 32.3 - 35.7 g/dL [facility] RDW CV 21.5(H) 11.1 - 14.9 % [facility] RDW SD 78.0(H) 35.7 - 48.1 fL [facility] NRBC abs 12.55(H) 0.00 - 0.01 K/cumm [facility] Blood 05/12/2025 8:50 AM CDT 05/12/2025 10:49 AM CDT us Alex Yost MD LAB BLOOD ORDERABLES F inal Result Performing Organization Address [facility] Co de Phone Number [facility] Department [place] [address] * (ABNORMAL) Uric acid (05/12/2025 8:50 AM CDT) Uric acid 8.7(H) 3.0 - 8.0 mg/dL Blood 05/12/2025 8:50 AM CDT 05/12/2025 8:59 AM CDT Narrative [facility] - 05/12/2025 9:46 AM CDT Q8hr TLS labs us Fab Eden NP LAB BLOOD ORDERABLES Final R esult Performing Organization Address City/[facility]/ZIP Co de Phone Number [facility] Department [place] [address] * Phosphorus (05/12/2025 8:50 AM CDT) Phosphorus, pl 4.2 2.3 - 4.5 mg/dL Blood 05/12/2025 8:50 AM CDT 05/12/2025 8:59 AM CDT us Fab Eden [employer] LAB BLOOD ORDERABLES Final R esult ANGELA [facility] [place] [address] * (ABNORMAL) Lactate dehydrogenase (LD) (05/12/2025 8:50 AM CDT) Lactate dehydrogenase (LDH) 7,830(H) 100 - 250 Units/L Comment:Repeated on Dilution Blood 05/12/2025 8:50 AM CDT 05/12/2025 8:59 AM CDT Fab Eden [employer] LAB BLOOD ORDERABLES Final R esult Performing Organization Address City/[facility]/ZIP Co de Phone Number ANGELA [facility] [place] [address] * Cytogenetics Blood (05/12/2025 8:45 AM CDT) Blood (Peripheral Blood For Pathologist Review) 05/12/2025 8:45 AM CDT 05/12/2025 8:45 AM CDT Narrative [facility] DIAG[facility]STIC [facility] - CYTOGENETICS - 05/13/2025 1:11 PM CDT EPIC results best viewed via link to PDF [facility] Department of Pathol [address] [place] [id number] Patient Information Name: TAMMY WRIGHT Gender: M : 1965 (Age: 60) Tissue: FISH Only Leukemic Blood Visit Information Hospital #: [id number] Facility: [facility] Service: [facility] Location: UNKNOWN Patient Type: [facility] Inpatient Specimen Information: Culture #: [id number] Date Collected: 05/12/2025 Date Accessioned: 05/12/2025 Date Ordered: 05/12/2025 Physician(s): Radha Yost MD Processing: Direct unstimulated Indication: Leukocytosis Specimen Quality: Adequate: FISH CLINICAL REPORT FLUORESCENCE IN-SITU HYBRIDIZATION [FISH] Karyotype: nuc fred (ASS1,ABL1,BCR)x2[200],(PML,OLI)x2[200] Diagnosis: FISH FINDINGS: NO EVIDENCE OF BCR::ABL1 OR PML::OLI REARRANGEMENT INTERPRETATION: FISH evaluation for a BCR::ABL1 rearrangement was performed on nuclei with the LSI BCR::ABL1 Tricolor, Dual Fusion Translocation Probe ([employer] for ASS1/ABL1 at 9q34 and BCR at 22q11.2 and is interpreted as NORMAL. No rearrangement was observed in 194/200 nuclei, which is within the normal range (up to 1%) established for this probe in the Clinical Genomics Laboratory at [facility]. Variant signal pattern was observed in 6/200 nuclei. Up to 8.5% of cells in normal samples can show random overlap of BCR::ABL1 probes and additional nuclei may show extra or missing signals. A normal BCR::ABL1 FISH finding can result from the absence of a BCR::ABL1 rearrangement, from a variant BCR::ABL1 rearrangement or from an insufficient number of neoplastic cells in the specimen. FISH evaluation for a PML::OLI rearrangement was performed on nuclei with the LSI PML::OLI Dual Color, Dual Fusion Translocation Probe ([employer] for PML at 15q24 and OLI at 17q21 and is interpreted as NORMAL. No rearrangement was observed in 194/200 nuclei, which is within the normal range (up to 1%) established for this probe in the Clinical Genomics Laboratory at [facility]. Variant signal pattern was observed in 6/200 nuclei. Up to 13% of cells in normal samples can show random overlap of PML::OLI probes and additional nuclei may show extra or missing signals. A normal PML::OLI FISH finding can result from the absence of a PML::OLI rearrangement, from a variant PML::OLI rearrangement or from an insufficient number of neoplastic cells in the specimen. PLEASE NOTE: This study does not represent a complete cytogenetic analysis. The sample was submitted for FISH analysis only. Chromosome analysis is recommended. The FISH findings must be interpreted within the context of the pathologic and clinical findings. Follow-up evaluation is recommended. This test was developed and its performance characteristics determined by [facility] [employer]. It has not been cleared or approved by the FDA. The laboratory is regulated under CLIA as qualified to perform high-complexity testing. This test is used for clinical purposes. It should not be regarded as investigational or for research. Chromosome analysis and Fluorescence In Situ Hybridization (FISH) analysis are performed using the [employer] Imaging System. Report Electronically Reviewed and Signed Out By Priscila Saha MD, [facility], FAAPDate Reported: 05/13/2025Professor, Division of Genomic & Molecular Pathology Alex Yost MD LAB GENETIC TESTING Fi nal Result [facility] DIAGNOSTIC LAB - CYTOGENETICS [address] [place] [address] * POCT glucose (05/12/2025 8:10 AM CDT) Pathologist [facility] Glucose, POC 134 70 - 199 mg/dL Blood 05/12/2025 8:10 AM CDT 05/12/2025 8:10 AM CDT Alex Yost MD LAB POCT ORDERABLES - DEVICE Final Result Performing Organization Address City/[facility] Co de Phone Number [facility] Department [place] [address] * Histoplasma Antigen Urine (05/12/2025 6:58 AM CDT) [facility] Histo Ag Ur result None Detected None Detected Histo Ag Ur interp Negative Negative ANGELA DUNAWAY Comment: Result Interpretation: Reference interval: None Detected Results reported as ng/mL in 0.20 - 20.00 ng/mL range Results above 20.00 ng/mL are reported as 'Positive, Above the Limit of Quantification' Testing Performed by: [facility], [address] [place] [address], [place] [address]. This test was developed and its performance characteristics determined by [facility]. It has not been cleared or approved by the FDA; however, FDA clearance or approval is not currently required for clinical use. The results are not intended to be used as the sole means for clinical diagnosis or patient management decisions. Interpretative data updated 12/05/2020 Urine 05/12/2025 6:58 AM CDT 05/12/2025 8:44 AM CDT Fab Eden NP LAB MICROBIOLOGY - GENERAL O RDERABLES Final Result Performing Organization Address [facility] Co de Phone Number [facility] [place] [address] * (ABNORMAL) Urinalysis reflex to microscopic and culture Urine, bladder (05/12/2025 6:58 AM CDT) Color, ur Yellow Yellow Clarity, ur Clear Clear [facility] Specific gravity, ur 1.018 1.003 - 1.030 [facility] pH, urine 6.0 [facility] Comment: Interpretive Data U rine pH is affected by diet, medications, systemic acid-base disturbances, and renal tubular function. pH may affect urinary stone formation. For example, urine pH below 6.0 may help reduce the tendency for calcium phosphate stones and pH greater than 6.0 may reduce the tendency for uric acid stone formation. Source: [facility] Current Interpretive Data was last revised on 2017 Protein, ur ql Trace Negative [facility] Glucose, ur ql Negative Negative [facility] Ketones, ur Negative Negative [facility] Bilirubin, ur Negative Negative [facility] Blood, ur Negative Negative [facility] Urobilinogen, ur 2.0(A) <2.0 mg/dL [facility] Nitrite, ur Negative Negative [facility] Leukocyte esterase, ur Negative Negative [facility] UA reflex comment Reflex conditions for microscopic UA and culture not met. [facility] Urine, bladder 05/12/2025 6: 58 AM CDT 05/12/2025 7:03 AM CDT Fab Eden [employer] LAB MICROBIOLOGY - GENERAL O RDERABLES Final Result Performing Organization Address [facility] Co de Phone Number [facility] Department [place] [address] * Legionella antigen Urine (05/12/2025 6:58 AM CDT) Legionella Ag Negative Negative Comment: Interpretive Data This test detects only Legionella pneumophila serogroup 1 antigen. Testing performed by [facility] ([phone]). Current interpretive data was last revised on 2019. Urine 05/12/2025 6:58 AM CDT 05/12/2025 8:44 AM CDT Fab Eden [employer] LAB MICROBIOLOGY - GENERAL O RDERABLES Final Result Performing Organization Address [facility] Co de Phone Number [facility] Department [place] [address] * Sodium, urine, random (05/12/2025 6:58 AM CDT) Sodium, ur <20 mmol/L Comment: Repeated and Verified Interpretive Data No reference range established. Current interpretive data was last revised 2019. Urine 05/12/2025 6:58 AM CDT 05/12/2025 7:03 AM CDT Alex Yost MD LAB URINE ORDERABLES F inal Result Performing Organization Address [facility] de Phone Number [facility] Department [place] [address] * Creatinine, urine, random (05/12/2025 6:58 AM CDT) Creatinine Ur 177.7 mg/dL Comment: Interpretive Data No reference range established. Current interpretive data was last revised 2019. Urine 05/12/2025 6:58 AM CDT 05/12/2025 7:03 AM CDT Alex Yost MD LAB URINE ORDERABLES F inal Result Performing Organization Address [facility]/State/ZIP Co de Phone Number [facility] Department [place] [address] * Drugs of Abuse Screen, Urine with Reflex Confirmation (05/12/2025 6:50 AM CDT) Amphetamine, ur Not Detected CutOff 500ng/mL Comment: Interpretive Data - Amphetamines: Samples containing greater than 500 ng/mL d-methamphetamine or other cross-reacting amphetamine compounds are reported as positive. Amphetamine immunoassays are subject to significant false positive rates due to cross-reactivity of non-amphetamine drugs. Confirmatory testing required for definitive results. Current Interpretive Data was last reviewed 2023. Barbiturates, ur Not Detected CutOff 200ng/mL ANGELA DUNAWAY Comment: Interpretive Data - Barbiturates: Samples containing greater than 200 ng/mL secobarbital or other cross-reacting barbiturate compounds are reported as positive. False positive and false negative results are possible. Confirmatory testing required for definitive results. Current Interpretive Data was last reviewed 2023. Benzodiazepines, ur Not Detected CutOff 100ng/mL ANGELA [facility] Comment: Interpretive Data - Benzodiazepines: Samples containing greater than 100 ng/mL nordiazepam or other cross-reacting compounds are reported as positive. False positive and false negative results are possible. Confirmatory testing required for definitive results. Current Interpretive Data was last reviewed 2023. Cannabinoids, ur Not Detected CutOff 50 ng/mL ANGELA DUNAWAY Comment: Interpretive Data - Cannabinoids: Samples containing greater than 50 ng/mL delta-9 THC -COOH or other cross- reacting compounds are reported as positive. False positive and false negative results are possible. Confirmatory testing required for definitive results. Current Interpretive Data was last reviewed 2023. Cocaine, ur Not Detected CutOff 150ng/mL ANGELA [facility] Comment: Interpretive Data - Cocaine: Samples containing greater than 150 ng/mL benzoylecgonine or other cross- reacting compounds are reported as positive. False positive and false negative results are possible. Confirmatory testing required for definitive results. Current Interpretive Data was last reviewed 2023. Fentanyl, Ur Not Detected CutOff 5 ng/mL ANGELA DUNAWAY Comment: Interpretive Data - Fentanyl: Samples containing greater than 5 ng/mL norfentanyl, fentanyl, or other cross-reacting fentanyl compounds are reported as positive. False positive and false negative results are possible. Confirmatory testing required for definitive results. Current Interpretive Data was last reviewed 2024. Methadone, ur Not Detected CutOff 300ng/mL ANGELA [facility] Comment: Interpretive Data - Methadone: Samples containing greater than 300 ng/mL d,l-methadone or other cross-reacting compounds are reported as positive. False positive and false negative results are possible. Confirmatory testing required for definitive results. Current Interpretive Data was last reviewed 2023. Opiates, ur Not Detected CutOff 300ng/mL ANGELA [facility] Comment: Interpretive Data - Opiates: Samples containing greater than 300 ng/mL morphine or other cross-reacting compounds are reported as positive. False positive and false negative results are possible. Confirmatory testing required for definitive results. Current Interpretive Data was last reviewed 2023. Oxycodone, ur Not Detected CutOff 100ng/mL ANGELA [facility] Comment: Interpretive Data - Oxycodone: Samples containing greater than 100 ng/mL oxycodone or other cross-reacting compounds are reported as positive. False positive and false negative results are possible. Confirmatory testing required for definitive results. Current Interpretive Data was last reviewed 2023. Phencyclidine, ur Not Detected CutOff 25 ng/mL [facility] Comment: Interpretive Data - Phencyclidine: Samples containing greater than 25 ng/mL phencyclidine or other cross-reacting compounds are reported as positive. False positive and false negative results are possible. Confirmatory testing required for definitive results. Current Interpretive Data was last reviewed 2023. Urine 05/12/2025 6:50 AM CDT 05/12/2025 8:53 AM CDT Narrative [facility] - 05/12/2025 9:24 AM CDT Drug of Abuse screening is performed by immunoassay for medical purposes only. This is not to be used for Pain Management purposes. If Detected, confirmation testing will be performed for Amphetamines, Cocaine, Fentanyl, Methadone, Opiates, Oxycodone or Phencyclidine. Alex Yost MD LAB URINE ORDER[place] [address] * Troponin I high-sensitivity 4-hour (05/12/2025 6:08 AM CDT) Trop I hs 10 <=35 ng/L Comment: Interpretive Data For further hscTnI resources including the diagnostic algorithm and an aid in interpretation, copy and paste this link: [email or web address]/show/[email or web address] Current Interpretive Data last revised 2020. Trop I hs delta -4 ng/L [facility] Trop I hs interp Insignificant [facility] Blood 05/12/2025 6:08 AM CDT 05/12/2025 6:13 AM CDT us Fab Eden NP LAB BLOOD ORDERABLES Final R esult Performing Organization Address [facility] [place] [address] * POCT glucose (05/12/2025 4:17 AM CDT) [facility] Glucose, POC 139 70 - 199 mg/dL Blood 05/12/2025 4:17 AM CDT 05/12/2025 4:17 AM CDT Alex Yost MD LAB POCT ORDERABLES - DEVICE Final Result Performing Organization Address [facility] Co de Phone Number [facility] [place] [address] * Troponin I high-sensitivity 2-hour (05/12/2025 4:02 AM CDT) Pathologist [facility] Trop I hs 14 <=35 ng/L Comment: Interpretive Data For further hscTnI resources including the diagnostic algorithm and an aid in interpretation, copy and paste this link: [email or web address]/show/[email or web address] Current Interpretive Data last revised 2020. Trop I hs delta 0 ng/L [facility] Trop I hs interp Insignificant [facility] Blood 05/12/2025 4:02 AM CDT 05/12/2025 4:22 AM CDT Fab Eden [employer] LAB BLOOD ORDERABLES Final R esult Performing Organization Address City/[facility]/ZIP Co de Phone Number [facility] [place] [address] * (ABNORMAL) Potassium, whole blood (05/12/2025 4:02 AM CDT) Potassium, bld 2.1(C) 3.3 - 4.9 mmol/L Comment:reviewed Blood 05/12/2025 4:02 AM CDT 05/12/2025 4:10 AM CDT Fab Eden [employer] LAB BLOOD ORDERABLES Final R esult Performing Organization Address [facility]/ZIP Co de Phone Number [facility] [place] [address] * Critical Result Callback Chemistry (05/12/2025 4:02 AM CDT) Date Notified 20250512 Time Notified 440 [facility] TestName Potassium WB [facility] Called/Read Back Jace MILLER [facility] Credentials RN [facility] Called By rex MILLER [facility] Blood 05/12/2025 4:02 AM CDT 05/12/2025 4:10 AM CDT Fab Eden [employer] LAB BLOOD ORDERABLES Final R esult Performing Organization Address City/[facility]/[place] [address] * Extra slide preparation (05/12/2025 4:02 AM CDT) Extra slide prep Slide available for pickup from the lab. Blood 05/12/2025 4:02 AM CDT 05/12/2025 4:22 AM CDT Fab Eden NP LAB BLOOD ORDERABLES Final R esult Performing Organization Address [facility] Co de Phone Number [facility] Department [place] [address] * Check Sample (05/12/2025 2:58 AM CDT) Pathologist [facility] ABO Rh B Positive [facility] HCLL OTHER 05/12/2025 2:58 AM CDT 05/12/2025 3:04 AM CDT Alex Yost MD LAB BLOOD ORDERABLES F inal Result Performing Organization Address [facility] de Phone Number [facility] [place] [address] [facility] * Prepare RBC: 1 Units (05/12/2025 2:53 AM CDT) Product code [id number] Unit Number [id number] [facility] Product Blood Type BPOS [facility] Dispense Status PRESUMED TRANSFUSED [facility] Blood 05/12/2025 2:53 AM CDT 05/12/2025 2:52 AM CDT Narrative [facility] - 05/12/2025 4:00 PM CDT Are special requirements needed? (All products are leukoreduced and CMV- safe)- >No Date required:-[id number] LRRBC # of [id number] Reasons:-Hgb <7 g/dL} Fab Eden NP BLOOD BANK PRODUCT ORDERABLE S Final Result Performing Organization Address [facility] de Phone Number [facility] Department [place] [address] * X-ray chest 1 view (Portable) (05/12/2025 2:24 AM CDT) Anatomical Region Laterality Modality Body, Chest N/A Computed Radiogr aphy 05/12/2025 7:56 AM CDT Impressions 05/12/2025 7:56 AM CDT There are no prior chest radiographs available for comparison. Left subclavian transvenous pacemaker with right atrial and right ventricular lead seen. Lung volumes are small. Mild bibasilar opacity compatible with atelectasis or aspiration seen. No focal consolidation seen. No pneumothorax or pleural effusion seen. Heart size and mediastinal contour within normal limits. Electronically signed by: Thompson Lamas M.D. Narrative 05/12/2025 7:56 AM CDT EXAMINATION: 1 view chest radiograph Procedure Note Thompson Lamas MD - 05/12/2025 EXAMINATION: 1 view chest radiograph IMPRESSION: There are no prior chest radiographs available for comparison. Left subclavian transvenous pacemaker with right atrial and right ventricular lead seen. Lung volumes are small. Mild bibasilar opacity compatible with atelectasis or aspiration seen. No focal consolidation seen. No pneumothorax or pleural effusion seen. Heart size and mediastinal contour within normal limits. Electronically signed by: Thompson Lamas M.D. us Fab Eden [employer] IMG XR PROCEDURES Final Resu lt * POCT glucose (05/12/2025 2:11 AM CDT) Glucose, POC 161 70 - 199 mg/dL Blood 05/12/2025 2:11 AM CDT 05/12/2025 2:11 AM CDT us Alex Yost MD LAB POCT ORDERABLES - DEVICE Final Result [facility] Department [place] [address] * Coccidioides antibody screen w/reflex Blood (05/12/2025 2:03 AM CDT) [facility] Coccidioides ab screen, ser Negative Negative [facility] Comment: Repeat testing on a new sample in 2-3 weeks if clinically indicated. ADDITIONAL INFORMATION This test has been modified from the audit lead's instructions. Its performance characteristics were determined by [facility] in a manner consistent with CLIA requirements. This test has not been cleared or approved by the U.S. Food and Drug Administration. Test Performed by: [address] [address] [employer] Feeder: Christa Adames Ph.D.; CLIA# [id number] Blood 05/12/2025 2:03 AM CDT 05/12/2025 2:13 AM CDT Fab Eden [employer] LAB MICROBIOLOGY - GENERAL O RDERABLES Final Result ANGELA MOREAU [facility] Department [place] [address] [facility] * Troponin I high-sensitivity series (baseline, 2hr, 4hr, 6hr) (05/12/2025 2:03 AM CDT) [facility] Trop I hs 14 <=35 ng/L Comment: Interpretive Data For further [facility] resources including the diagnostic algorithm and an aid in interpretation, copy and paste this link: [email or web address].[email or web address]/show/[email or web address] Current Interpretive Data last revised 2020. Blood 05/12/2025 2:03 AM CDT 05/12/2025 2:21 AM CDT Fab Eden [employer] LAB BLOOD ORDERABLES Final R esult Performing Organization Address City/[facility]/ZIP Co de Phone Number [facility] [place] [address] * Lactate (05/12/2025 2:03 AM CDT) Pathologist [facility] Lactate 1.1 0.7 - 2.0 mmol/L Blood 05/12/2025 2:03 AM CDT 05/12/2025 2:21 AM CDT Fab Eden [employer] LAB BLOOD ORDERABLES Final R esult Performing Organization Address [facility] Co de Phone Number [facility] [place] [address] * Flow Leukemia/Lymphoma Blood (05/12/2025 2:03 AM CDT) [facility] Patel Stain Test Completed Leukemia/Lymp [place] Result See separate Surgical Pathology report. [facility] Blood 05/12/2025 2:03 AM CDT 05/12/2025 2:21 AM CDT Fab Eden [employer] LAB PATHOLOGY ORDERABLES Fin al Result Performing Organization Address [facility] Co de Phone Number [facility] [place] [address] * Cytomegalovirus (CMV) DNA PCR, quantitative Blood (05/12/2025 2:03 AM CDT) [facility] CMV DNA Not Detected [facility] Comment: Interpretive Data: The quantifiable range of this assay is 34 IUnits/mL to 10,000,000 IUnits/mL (1.53 log IUnits/mL to 7.0 log IUnits/mL). Testing was performed by the [employer]00 CMV Test ([employer] Testing performed at [facility]. Current interpretive data was last revised on 2021. Blood 05/12/2025 2:03 AM CDT 05/12/2025 2:16 AM CDT Fab Eden NP LAB MICROBIOLOGY - GENERAL O RDERABLES Final Result Performing Organization Address [facility] Co de Phone Number ANGELA DUNAWAY [facility] Department [place] [address] [facility] * eGFR (05/12/2025 2:03 AM CDT) eGFR 74 >=60 mL/min/1. 73 m2 Comment: Interpretive Data [...] of Race in Diagnosing Kidney Disease, JASN 2020). The CKD-EPI equation should not be used for patients with unstable renal function and has not been validated in children and those over 70. Current interpretive data was last reviewed 2021. Blood 05/12/2025 2:03 AM CDT 05/12/2025 2:21 AM CDT Fab Eden NP LAB BLOOD ORDERABLES Final R esult Performing Organization Address City/[facility]/ZIP Co de Phone Number ANGELA [facility] [place] [address] * Blastomyces antibody, EIA, serum Blood (05/12/2025 2:03 AM CDT) Pathologist [facility] Blastomyces Antibody Negative Negative [facility] Comment: A single negative result does not exclude the diagnosis of blastomycosis. Repeat testing on a new sample in 7-14 days if clinically indicated. Test Performed by: [facility] [address] [place] [address] [employer]eder: Christa Adames Ph.D.; CLIA# [id number] Blood 05/12/2025 2:03 AM CDT 05/12/2025 2:38 AM CDT Fab Eden [employer] LAB MICROBIOLOGY - GENERAL O RDERABLES Final Result Performing Organization Address [facility] Co de Phone Number [facility] Department [place] [address] [facility] * Critical Result Callback Chemistry (05/12/2025 2:03 AM CDT) Date Notified 20250512 Time Notified 318 ANGELA [facility] TestName Potassium Plas ANGELA DUNAWAY Called/Read Back Sharmin DUNAWAY Credentials MARTINA DUNAWAY Called By JAKY DUNAWAY Blood 05/12/2025 2:03 AM CDT 05/12/2025 2:21 AM CDT Fab Eden NP LAB BLOOD ORDERABLES Final R esult Performing Organization Address [facility] Co de Phone Number [facility] Department [place] [address] * Critical Result Callback Chemistry (05/12/2025 2:03 AM CDT) Date Notified 20250512 Time Notified 237 AN[facility]A [facility] TestName pO2 Art, O2 Sat Art ANGELA DUNAWAY Called/Read Back Som DUNAWAY Credentials MARTINA DUNAWAY Called By JAKY DUNAWAY Blood 05/12/2025 2:03 AM CDT 05/12/2025 2:15 AM CDT Fab Eden NP LAB BLOOD ORDERABLES Final R esult Performing Organization Address City/[facility]/[place] [address] * Senior staff review (05/12/2025 2:03 AM CDT) Senior Staff Review Specimen Blood Senior Staff Review Review Done [facility] Comment:Refer to manual diff erential pathologist comment. Blood 05/12/2025 2:03 AM CDT 05/12/2025 4:01 AM CDT Narrative [facility] - 05/12/2025 2:56 PM CDT PATH REVIEW Alex Yost MD LAB BLOOD ORDERABLES F inal Result Performing Organization Address [facility] [place] [address] * HIV 1/2 Antibody plus p24 Antigen Blood (05/12/2025 2:03 AM CDT) Pathologist [facility] HIV 1/2 ab + p24 ag Nonreactive Nonreactive Comment:Nonreactive for HIV- 1 antigen and HIV-1/HIV-2 antibodies. No laboratory evidence of HIV infection. If acute HIV infection is suspected, consider testing for HIV-1 RNA. Current interpretive data was last revised on 22. Blood 05/12/2025 2:03 AM CDT 05/12/2025 2:21 AM CDT us Fab Eden NP LAB MICROBIOLOGY - GENERAL O RDERABLES Final Result Performing Organization Address [facility] [place] [address] * (ABNORMAL) CMV, IgG Blood (05/12/2025 2:03 AM CDT) Pathologist [facility] CMV IgG Positive( A) Negative Comment: Interpretive Data Negative - Individuals with negative CMV IgG results are presumed to not have had prior exposure or infection with CMV and are, therefore, considered susceptible to primary infection. Equivocal - Equivocal results may occur during acute infection or may be due to nonspecific binding reactions. Submit an additional sample for testing if clinically indicated. Positive - Indicates presence of detectable CMV IgG antibody. Results indicate past or recent CMV infection. Blood 05/12/2025 2:03 AM CDT 05/12/2025 2:22 AM CDT Fab Eden [employer] LAB MICROBIOLOGY - GENERAL O RDERABLES Final Result Performing Organization Address City/[facility] Co de Phone Number [facility] [place] [address] * Extra slide preparation (05/12/2025 2:03 AM CDT) [facility] Extra slide prep Slide available for pickup from the lab. Blood 05/12/2025 2:03 AM CDT 05/12/2025 4:01 AM CDT Fab Eden [employer] LAB BLOOD ORDERABLES Final R esult Performing Organization Address [facility] Co de Phone Number [facility] [place] [address] * Respiratory pathogen panel Nasopharyngeal (05/12/2025 2:03 AM CDT) [facility] Influenza A RNA Not Detected Not Detected Influenza B RNA Not Detected Not Detected [facility] RSV RNA Not Detected Not Detected [facility] COVID-19 RNA Not Detected Not Detected [facility] Coronavirus 229E RNA Not Detected Not Detected [facility] Coronavirus HKU1 RNA Not Detected Not Detected [facility] Coronavirus NL63 RNA Not Detected Not Detected [facility] Coronavirus OC43 RNA Not Detected Not Detected [facility] Adenovirus DNA Not Detected Not Detected [facility] Metapneumovirus RNA Not Detected Not Detected [facility] Rhinovirus/Enterov irus RNA Not Detected Not Detected [facility] Parainfluenza 1 RNA Not Detected Not Detected [facility] Parainfluenza 2 RNA Not Detected Not Detected [facility] Parainfluenza 3 RNA Not Detected Not Detected [facility] Parainfluenza 4 RNA Not Detected Not Detected [facility] B. pertussis DNA Not Detected Not Detected [facility] B. parapertussis DNA Not Detected Not Detected [facility] C. pneumoniae DNA Not Detected Not Detected [facility] M. pneumoniae DNA Not Detected Not Detected [facility] Nasopharyngeal 05/12/2025 2: 03 AM CDT 05/12/2025 2:24 AM CDT Narrative [facility] - 05/12/2025 3:20 AM CDT Is the Patient experiencing symptoms consistent with COVID?->No Surveillance testing for transplant patient?->No Interpretive Data The Denator FilmArray Respiratory Panel (RP2.1) assay is a multiplexed real-time PCR based nucleic acid test capable of simultaneous qualitative detection and identification of multiple respiratory viral and bacterial nucleic acids, including SARS Coronavirus 2 (the causative agent of COVID-19). The following bacteria, viruses and virus subtypes can be identified using the FilmArray RP2.1 assay: Bordetella pertussis, Bordetella parapertussis, Chlamydia pneumoniae, Mycoplasma pneumoniae, Adenovirus, SARS Coronavirus 2, seasonal coronaviruses (Coronavirus HKU1, Coronavirus NL63, Coronavirus 229E, and Coronavirus OC43), Influenza A, Influenza A subtype H1, Influenza A subtype H3, Influenza A subtype 2009 H1, Influenza B, Metapneumovirus, Parainfluenza 1, Parainfluenza 2, Parainfluenza 3, Parainfluenza 4, RSV, Rhinovirus/Enterovirus. Due to the genetic similarity between human Rhinovirus and Enterovirus, the FilmArray RP2.1 assay cannot reliably differentiate them. Coronavirus OC43 may cross-react with some isolates of Coronavirus HKU1. A dual positive result may be due to cross-reactivity or may indicate a co- infection. The detection and identification of specific viral and bacterial nucleic acids from individuals exhibiting signs and symptoms of a respiratory infection aids in the diagnosis of respiratory infection if used in conjunction with other clinical and epidemiological information. The results of this test should not be used as the sole basis for diagnosis, treatment, or other management decisions. Negative results in the setting of a respiratory illness may be due to infection with pathogens that are not detected by this test. Positive results do not rule out infection/co-infection with other organisms. The agent(s) detected by the FilmArray RP2.1 may not be the definite cause of disease. Additional testing (lab, imaging, etc.) may be necessary when evaluating a patient with possible respiratory tract infection. The FilmArray RP2.1 assay has FDA clearance for testing of [employer] swabs. The performance of additional specimen types has been assessed by the performing laboratory. The performance characteristics of this assay have been determined by [facility] Molecular Infectious Disease Laboratory. Current interpretive data was last revised on 22. Fab Eden NP LAB MICROBIOLOGY - GENERAL O RDERABLES Final Result Performing Organization Address [facility] de Phone Number [facility] Department [place] [address] * Cryptococcal Antigen, Serum Blood (05/12/2025 2:03 AM CDT) [facility] Cryptococcus ag, Serum Negative Negative Comment: The cryptococcal antigen test was performed using the IMMY CrAg Lateral Flow Assay. This assay is FDA cleared for serum and CSF specimens and for the detection of Cryptococcus neoformans and Cryptococcus gattii. If the result is positive, the specimen will be titered and reported from less than 1:5 to greater than or equal to 1:2560. This assay does not distinguish between C. neoformans and C. gattii. Testing hemolyzed serum samples may lead to false negatives. Current interpretive data last revised 2018. Blood 05/12/2025 2:03 AM CDT 05/12/2025 2:16 AM CDT Fab Eden NP LAB MICROBIOLOGY - GENERAL O RDERABLES Final Result Performing Organization Address [facility] de Phone Number [facility] Department [place] [address] * Hepatitis panel, acute Blood (05/12/2025 2:03 AM CDT) [facility] Hep A IgM Nonreactive Nonreactive Hep B core IgM Nonreactive Nonreactive [facility] Hep C Ab Nonreactive Nonreactive [facility] Comment:Antibodies to HCV no t detected. Does NOT exclude the possibility of recent exposure to HCV. Current interpretive data was last revised on 22 HepBsAg Nonreactive Nonreactive [facility] Blood 05/12/2025 2:03 AM CDT 05/12/2025 2:21 AM CDT Fab Eden [employer] LAB MICROBIOLOGY - GENERAL O RDERABLES Final Result Performing Organization Address [facility] de Phone Number [facility] [employer] [place] [address] * Aspergillus galactomannan antigen Blood (05/12/2025 2:03 AM CDT) [facility] Aspergillus galactomannan Ag <0.500 <0.5 Index [facility] Comment: ADDITIONAL INFORMATION This is a qualitative test and the resulted index value is not indicative of disease severity. Serial testing is recommended for patients at high risk for invasive aspergillosis. This assay was performed using the FDA-cleared [employer] Platelia Aspergillus Galactomannan EIA. Test Performed by: [place] [address] [employer] Feeder: Christa Adames Ph.D.; CLIA# [id number] Blood 05/12/2025 2:03 AM CDT 05/12/2025 2:13 AM CDT Fab Eden NP LAB MICROBIOLOGY - GENERAL O RDERABLES Final Result Performing Organization Address [facility] Co de Phone Number [facility] [place] [address] [facility] * (ABNORMAL) Manual Differential (05/12/2025 2:03 AM CDT) Differential Manual Cells Counted 100 [facility] Neutrophil abs 3.44 1.50 - 6.50 K/cumm [facility] Imm gran abs 44.77(H) 0.00 - 0.10 K/cumm [facility] Lymphocyte abs 20.67(H) 0.80 - 3.30 K/cumm [facility] Monocyte abs 17.22(H) 0.20 - 0.80 K/cumm [facility] Eosinophil abs 3.44(H) 0.00 - 0.50 K/cumm [facility] Neutrophil pct 1.0 % [facility] Comment: Interpretive Data Percent cell count reference ranges are not reported, since discordance with absolute values may lead to misinterpretation of CBC data. Current Interpretive Data was last revised on 2018. Lymphocyte pct 6.0 % [facility] Comment: Interpretive Data Percent cell count reference ranges are not reported, since discordance with absolute values may lead to misinterpretation of CBC data. Current Interpretive Data was last revised on 2018. Monocyte pct 5.0 % [facility] Comment: Interpretive Data Percent cell count reference ranges are not reported, since discordance with absolute values may lead to misinterpretation of CBC data. Current Interpretive Data was last revised on 2018. Eosinophil pct 1.0 % [facility] Comment: Interpretive Data Percent cell count reference ranges are not reported, since discordance with absolute values may lead to misinterpretation of CBC data. Current Interpretive Data was last revised on 2018. Myelocyte pct 13.0(H) 0.0 - 0.0 % [facility] Blast pct 74.0(C) 0.0 - 0.0 [facility] Comment:This result has been called to Iveth Gisel RN by [email or web address] on 05/12/2025 14:43:21, and has been read back. Critical result previously called to Ivethchicho Batres/RN on 05-12-25 at 0340 by . RBC morphology Present [facility] Platelet estimate Decreased(A) [facility] Pathologist comment Reviewed by Hematopathol ogsree/Hemato logistLelo M.D. 05-12-25 Numerous leukocytes, correlate with testing. [facility] Blood 05/12/2025 2:03 AM CDT 05/12/2025 4:01 AM CDT Fab Eden [employer] LAB BLOOD ORDERABLES Edited Result - Final Performing Organization Address [facility]/ZIP Co de Phone Number [facility] Department [place] [address] * Blood culture Blood (05/12/2025 2:03 AM CDT) Report Final Report: No growth Blood 05/12/2025 2:03 AM CDT 05/12/2025 2:13 AM CDT Narrative [facility] - 05/17/2025 12:00 PM CDT From a different site than #1. Collection->Peripheral 1. Blood cultures are incubated for 4 days on a continuously monitored blood culture system. The first report of a negative culture is issued within 24 hours of receipt of the specimen in the laboratory. 2. Positive culture results are reported as soon as they are detected. 3. The most important factor for detection of microbes in the setting of bloodstream infection is the volume of blood submitted for culture. Failure to collect an optimal blood volume can result in false negative blood cultures. 4. For pediatric patients, the recommended blood volume to collect follows a weight based strategy. See the electronic test catalog for collection instructions. 5. For positive blood cultures, a rapid molecular test may be performed for organism identification using the ezequiel ePlex blood culture identification panel for gram positive (BCID-GP) and gram negative (BCID-GN) organisms. This nucleic acid amplification test detects microbial DNA in positive blood culture broth. This assay has been cleared by the [place] Food and Drug Administration and its performance characteristics have been verified by the [facility] Microbiology Laboratory. For questions about this culture, contact the Microbiology Laboratory at [phone]. Interpretive data was last revised on 24. Fab Eden NP LAB MICROBIOLOGY - GENERAL O RDERABLES Final Result Performing Organization Address [facility]/ZIP Co de Phone Number [facility] Department [place] [address] * Blood culture Blood (05/12/2025 2:03 AM CDT) Report Final Report: No growth Blood 05/12/2025 2:03 AM CDT 05/12/2025 2:21 AM CDT Vanda DUNAWAY - 05/17/2025 12:00 PM CDT Collection->Peripheral 1. Blood cultures are incubated for 4 days on a continuously monitored blood culture system. The first report of a negative culture is issued within 24 hours of receipt of the specimen in the laboratory. 2. Positive culture results are reported as soon as they are detected. 3. The most important factor for detection of microbes in the setting of bloodstream infection is the volume of blood submitted for culture. Failure to collect an optimal blood volume can result in false negative blood cultures. 4. For pediatric patients, the recommended blood volume to collect follows a weight based strategy. See the electronic test catalog for collection instructions. 5. For positive blood cultures, a rapid molecular test may be performed for organism identification using the ezequiel ePlex blood culture identification panel for gram positive (BCID-GP) and gram negative (BCID-GN) organisms. This nucleic acid amplification test detects microbial DNA in positive blood culture broth. This assay has been cleared by the [place] Food and Drug Administration and its performance characteristics have been verified by the [facility]biology [facility]. For questions about this culture, contact the Microbiology Laboratory at [phone]. Interpretive data was last revised on 24. Fab Eden NP LAB MICROBIOLOGY - GENERAL O RDERABLES Final Result ANGELA DUNAWAY [facility] Department [place] [address] * aPTT (05/12/2025 2:03 AM CDT) aPTT 26 26 - 38 sec Comment: Interpretive Data Heparin therapeutic range: 66.0 - 100.0 seconds. Range based on correlation with therapeutic heparin activity range of 0.3 - 0.7 Units/mL. Current interpretive data was last revised on 2023. Blood 05/12/2025 2:03 AM CDT 05/12/2025 2:21 AM CDT Fab Eden [employer] BLOOD ORDERABLES Final R esult Performing Organization Address [facility] Co de Phone Number [facility] [place] [address] * (ABNORMAL) Protime-INR (05/12/2025 2:03 AM CDT) PT 19.5(H) 10.2 - 13.5 sec INR 1.74(H) 0.90 - 1.20 [facility] Comment: Interpretive data Oral anticoagulant therapeutic ranges: Venous thromboembolism prophylaxis or treatment: 2.0-3.0 CARDIOLOGY Standard range: 2.0-3.0 High-intensity range: 2.5-3.5 Refer to indication-specific guidelines for appropriate target ranges for prosthetic heart valve replacement. Current interpretive data was last revised on 2019. Blood 05/12/2025 2:03 AM CDT 05/12/2025 2:21 AM CDT Fab Eden [employer] BLOOD ORDERABLES Final R esult Performing Organization Address [facility] de Phone Number [facility] [place] [address] * Fibrinogen (05/12/2025 2:03 AM CDT) Fibrinogen 178 170 - 400 mg/dL Blood 05/12/2025 2:03 AM CDT 05/12/2025 2:21 AM CDT Fab Eden [employer] LAB BLOOD ORDERABLES Final R esult Performing Organization Address City/[facility] Co de Phone Number [facility] [place] [address] * (ABNORMAL) CBC without differential (05/12/2025 2:03 AM CDT) [facility] WBC 344.42(C) 3.80 - 9.90 K/cumm Comment:This result has been called to Isabella Powell by [id number] on 05/12/2025 02:40:10, and has been read back. Hgb 4.0(C) 13.0 - 17.5 g/dL [facility] Comment:This result has been called to Isabella Powell by [email or web address] on 05/12/2025 02:40:10, and has been read back. Hct 12.6(L) 38.9 - 50.3 % [facility] Plt 52(L) 150 - 400 K/cumm [facility] MPV 10.8 9.1 - 12.3 fL [facility] RBC 1.19(L) 4.30 - 5.80 M/cumm [facility] MCV 105.9(H) 81.3 - 96.4 fL [facility] MCH 33.6(H) 27.1 - 33.3 pg [facility] MCHC 31.7(L) 32.3 - 35.7 g/dL [facility] RDW CV 22.5(H) 11.1 - 14.9 % [facility] RDW SD 79.7(H) 35.7 - 48.1 fL [facility] NRBC abs 12.33(H) 0.00 - 0.01 K/cumm [facility] Blood 05/12/2025 2:03 AM CDT 05/12/2025 2:21 AM CDT us Fab Eden [employer] LAB BLOOD ORDERABLES Final R esult [facility] Department [place] [address] * Type and screen (05/12/2025 2:03 AM CDT) [facility] ABO Rh B Positive Benjy, indirect Negative [facility] Blood 05/12/2025 2:03 AM CDT 05/12/2025 2:14 AM CDT Narrative [facility] - 05/12/2025 3:13 AM CDT Has the patient had Daratumumab or Isatuximab in the past 6 months?->Unknown Fab Eden NP LAB BLOOD BANK TEST ORDERABL ES Final Result Performing Organization Address [facility] de Phone Number [facility] [place] [address] * Infection Prevention MRSA Only (Staphylococcus aureus) Culture Nasal (05/12/2025 2:03 AM CDT) Report Final Report: Negative Nasal 05/12/2025 2:03 AM CDT 05/12/2025 2:46 AM CDT Narrative [facility] - 05/13/2025 4:27 AM CDT Testing performed by [facility] ([phone]). Fab Eden NP LAB MICROBIOLOGY - GENERAL O RDERABLES Final Result Performing Organization Address [facility] de Phone Number [facility] Department [place] [address] * (ABNORMAL) Uric acid (05/12/2025 2:03 AM CDT) Uric acid 11.6(H) 3.0 - 8.0 mg/dL Blood 05/12/2025 2:03 AM CDT 05/12/2025 2:50 AM CDT Narrative [facility] - 05/12/2025 3:27 AM CDT Q8hr TLS labs Fab Eden [employer] LAB BLOOD ORDERABLES Final R esult Performing Organization Address [facility] Co de Phone [place] [address] * Phosphorus (05/12/2025 2:03 AM CDT) Pathologist [facility] Phosphorus, pl 3.5 2.3 - 4.5 mg/dL Blood 05/12/2025 2:03 AM CDT 05/12/2025 2:50 AM CDT Fab Eden [employer] LAB BLOOD ORDERABLES Final R esult Performing Organization Address City/[facility] [place] [address] * Osmolality, blood (05/12/2025 2:03 AM CDT) [facility] Osmo 285 275 - 300 mOsm/kg Blood 05/12/2025 2:03 AM CDT 05/12/2025 2:50 AM CDT Alex Yost MD LAB BLOOD ORDERABLES F inal Result Performing Organization Address [facility] [place] [address] * Magnesium (05/12/2025 2:03 AM CDT) [facility] Magnesium 2.1 1.4 - 2.5 mg/dL Blood 05/12/2025 2:03 AM CDT 05/12/2025 2:21 AM CDT Fab Eden [employer] LAB BLOOD ORDERABLES Final R esult Performing Organization Address [facility] [place] [address] * Lactate dehydrogenase (LD) (05/12/2025 2:03 AM CDT) [facility] Lactate dehydrogenase (LDH) See Comment 100 - 250 Units/L Comment: Credited; Hemolyzed Specimen Telephone report made to: Hilda Donohue (RN) on 05/12/2025 03:53:27 CDT by DAYSI . Blood 05/12/2025 2:03 AM CDT 05/12/2025 2:50 AM CDT Fab Eden [employer] LAB BLOOD ORDERABLES Final R [facility] Performing Organization Address [facility] Co de Phone Number [facility] [place] [address] * (ABNORMAL) Haptoglobin (05/12/2025 2:03 AM CDT) Haptoglobin <10.0(L) 30.0 - 200.0 mg/dL Blood 05/12/2025 2:03 AM CDT 05/12/2025 2:21 AM CDT Fab Eden [employer] LAB BLOOD ORDERABLES Final R esult Performing Organization Address [facility] de Phone Number [facility] [place] [address] * (ABNORMAL) Blood gas, arterial (05/12/2025 2:03 AM CDT) pH, Art 7.38 7.35 - 7.45 PCO2, Arterial 49(H) 35 - 45 mmHg [facility] PO2, Arterial 35(C) 83 - 108 mmHg [facility] Comment:Repeated and verifie d. HCO3 Art (Calculated) 30 20 - 30 mmol/L [facility] BE, art 3 mmol/L [facility] Comment: Interpretive Data No Reference Range Established Current Interpretive Data was last revised on 2017 O2 Sat Art (Measured) 51(C) 90 - 95 % [facility] Comment:Repeated and verifie d. Blood 05/12/2025 2:03 AM CDT 05/12/2025 2:15 AM CDT us Fab Eden [employer] LAB BLOOD ORDERABLES Final R esult [facility] Department [place] [address] * Creatine kinase (CK), total (05/12/2025 2:03 AM CDT) Pathologist [facility] CK 166 40 - 300 Units/L Comment:Hemolyzed; result ma y be falsely elevated Blood 05/12/2025 2:03 AM CDT 05/12/2025 2:50 AM CDT Alex Yost MD LAB BLOOD ORDERABLES F inal Result Performing Organization Address [facility] Co de Phone Number [facility] Department [place] [address] * (ABNORMAL) Comprehensive metabolic panel (05/12/2025 2:03 AM CDT) [facility] Sodium 124(L) 135 - 145 mmol/L Potassium, pl >10.0(C) 3.3 - 4.9 mmol/L [facility] Comment: Hemolyzed; Potassium value may be falsely elevated by as much as 0.3-0.5 mmol/L. Suggest redraw and reanalysis. Potassium results may be falsely elevated in the presence of leukocytosis: WBC >50 K/cumm. Suggest sending whole blood Potassium, if available. Repeated and verified. Chloride 94(L) 97 - 110 mmol/L [facility] CO2 30 22 - 32 mmol/L [facility] Anion gap <1(L) 2 - 15 mmol/L [facility] Comment:Reviewed. BUN 14 6 - 25 mg/dL [facility] Creatinine 1.15 0.80 - 1.30 mg/dL [facility] Glucose 131 70 - 199 mg/dL [facility] Comment: Interpretive Data Fasting glucose >/= 126 [...] interpretive data was last revised 2022. Calcium 8.0(L) 8.5 - 10.3 mg/dL [facility] Bilirubin, total 1.5(H) 0.1 - 1.2 mg/dL [facility] Protein, pl 6.7 6.5 - 8.5 g/dL [facility] Albumin 3.6 3.5 - 5.0 g/dL [facility] Alk phos 133(H) 40 - 130 Units/L [facility] ALT 30 7 - 55 Units/L [facility] AST 253(H) 10 - 50 Units/L [facility] Comment:Hemolyzed; result ma y be falsely elevated Blood 05/12/2025 2:03 AM CDT 05/12/2025 2:21 AM CDT us Fab Eden [employer] LAB BLOOD ORDERABLES Final R esult [facility] Department [place] [address] * Surgical pathology (05/12/2025 1:49 AM CDT) Peripheral Blood For Pathologist Review 05/12/2025 1:49 AM CDT 05/12/2025 8:07 AM CDT Narrative 05/14/2025 5:56 PM CDT EPIC results best viewed via link to PDF [facility] [place] [address] Note to Patients: This report may contain a detailed description of human tissue sent by a health care provider to the laboratory for pathologic evaluation. The content of this report is essential for diagnosis and may provide important critical findings. This information may be unfamiliar to patients to review without a medical professional present. It is advised that the patient review this report in the presence of a health care provider who can answer questions and explain the details. 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 Lelo Pelletier M.D. Report Electronically Reviewed and Signed Out By Lelo Pelletier M.D. 05/14/2025 17:56:11 Diagnosis Comment Comment: Correlation with concurrent bone marrow is suggested for complete evaluation. Microscopic Description and Comment: CBC data from 05/12/2025 shows WBC-123.84 K/cumm, hemoglobin-6.5 g/dL, hematocrit- 18.2 %, platelets-24 K/cumm, MCV-94.3 fL, RDWCV-20.9 %. Microscopic examination of the Patel-Giemsa stained peripheral blood smear shows anemia with anisopoikilocytosis. Leukocytes are markedly increased in number with frequent circulating blasts. Platelets are decreased in number and predominantly normal in morphology. Flow cytometry: Specimen quality: Adequate Flow cytometry identifies an immunophenotypically abnormal blast population comprising 82% of total cellular events. Antigens expressed are: CD45(dim), CD123, CD117, CD13, CD33, CD38, HLA-DR, CD7, CD34(small subset), CD200(small subset), CD4(dim) Antigens not expressed are: kappa, lambda, CD10, CD5, CD20, CD19, TCRgd, CD2, CD56, CD8, CD3, CD16, CD64, CD14, CD15, TdT, cyCD3, vkPU11m, cyCD22, CD1 CD3+ T cells have no significant loss of hardwick T cell antigens and an inverted CD4:CD8 ratio of 42 to 53. Flow cytometry shows no significant CD19+ B-cell population. Too few B-cells are present for meaningful clonality analysis. Flow cytometry was performed using antibodies to the following cellular antigens: CD45, CD34, CD19, CD20, [place], Lambda, CD10, CD5, CD200, CD38, CD2, CD3, CD4, CD7, CD8, CD56, TCR-GD, CD16, CD13, CD14, CD64, HLA-DR, CD11b, CD15, CD123, CD117, CD33. Total antigens analyzed: 27 Additional flow cytometry was performed to further characterize potential blasts using antibodies to the following cellular antigens: CD45, TdT, CD1, CD3, CD22, CD79a. Total antigens analyzed: 6 Rosenda Burns M.D. History: The patient is a 60 year old male transferred for hyperleukocytosis concerning for acute leukemia. Specimen(s) Received: A: Peripheral blood for flow cytometry Gross Description: { Not Entered } Gross Pathologist: No pathologist assigned By this signature, I attest that the above diagnosis is based upon my personal examination of the slides(and/or other material). Addenda/Procedures The performance characteristics of some immunohistochemical stains, fluorescence in-situ hybridization tests and immunophenotyping by flow cytometry cited in this report (if any) were determined by the Surgical Pathology and Flow Cytometry Departments at [facility] as part of an ongoing quality checker program and in compliance with federally mandated regulations drawn from the Clinical Laboratory Improvement Act of 1988 (CLIA '88). Some of these tests rely on the use of analyte specific reagents and are subject to specific labeling requirements by the US Food and Drug Administration. Such diagnostic tests may only be performed in a facility that is certified by the Department of Health and Human Services as a high complexity laboratory under CLIA '88. The FDA has determined that such clearance or approval is not necessary. This test is used for clinical purposes. It should not be regarded as investigational or for research. Nevertheless, federal rules concerning the medical use of analyte specific reagents require that the following disclaimer be attached to the report: This test was developed and its performance characteristics determined by the Surgical Pathology and Flow Cytometry Departments of [facility]. It has not been cleared or approved by the U. S. Food and Drug Administration. IMAGES AND SCANNED DOCUMENTS, IF INCLUDED, ONLY VIEWABLE IN PDF VERSION OF REPORT Fab Eden NP LAB PATHOLOGY ORDERABLES Fin al Result * ECG 12 lead (05/12/2025 1:44 AM CDT) Ventricular Rate EKG/Min 96 BPM [facility] Atrial Rate 96 BPM [facility] AR-Interval (MSEC) 154 ms [facility] QRS-Interval (MSEC) 106 ms [facility] QT-Interval (MSEC) 354 ms [facility] QTc 447 ms [facility] P [place]cd[place] 55 degrees [facility] R [place] 55 degrees [facility] T [place]cd[place] -14 degrees [facility] Diagnosis Normal sinus rhythm Cannot rule out Anterior infarct , age undetermined Abnormal ECG No previous ECGs available Confirmed by HEATH CROFT M.D ([id number]) on 05/12/2025 10:26:22 AM [facility] 05/12/2025 1:44 AM CDT 05/12/2025 10:26 AM CDT Fab Eden [employer] ECG ORDERABLES Final Result [facility] from Last 3 Months Insurance MEDICARE [facility] Address: [address] [address] MEDICARE MEDICARE Advance Directives For more information, please contact: [phone] * Full Code (Latest Code Status on File) Date Activated Date Inactivated Comments 06/03/2025 1:16 PM 06/05/2025 9:30 PM * Full Code Date Activated Date Inactivated Comments 05/13/2025 7:11 PM 06/01/2025 10:28 PM * Full Code Date Activated Date Inactivated Comments 05/12/2025 1:45 AM 05/13/2025 7:11 PM Healthcare Agents on File Name Relationship Healthcare Agent Relationshi p Communication Amena Nuno Spouse Health Care Agent Care Teams See Wheeler Relationship Specialty Start Date End Date Nohelia Duval NP [address] [place] [address] PCP - General Nurse Practitioner 05/12/25 Tania Lott MD PhD [address] [facility] [address] [employer], , [place] [address] Medical Oncologist/Dry Transfer Worker Medical Oncology 05/27/25
--- OUTSIDE RECORDS SUMMARY | 2025-06-11 10:50 | XMS_ITS | Encounter Summary ---
Author Organization [facility] Address [facility] [place] [address] Care Team Providers Care Development And Planning Engineer Name Role Phone Paula Chopra NP Primary Care Provider [phone] Mike Doherty MD Unavailable [phone] Shari Ennis NP Unavailable [phone] Purnima Valle Primary Care Provider [phone] Teodora Dukes MD Unavailable Mark Yoon MD Unavailable [phone] Paige Marr PA-C Unavailable + [phone] Encounter Details Date Type Department Care Team (Late st Contact Info) Description 09/14/2020 90 Day Stroke Follow-up Call [facility] [address] [place] [address] Ailin Silver, RN Social History Tobacco Use [...] than three times a week 04/06/2020 Attends Rastafari Services Never 04/06 Active Member of Clubs or Organizations No 04/06/2020 Attends Club or Organization Meetings Never 04/06/2020 Marital Status 04/06/2020 Overall Financial Resource Strain (CARDIA) Answe r Date Recorded Difficulty of Paying Living Expenses Not hard at all 04/06/2020 [facility] of Occupat ional Health - Occupational Stress [...] PM CDT Legal Sex Male 6:00 PM PULP GRINDER Gender Identity Male 04/06/2020 1:53 PM CDT [...] Care Team (Late st Contact Info) Description 07/07/2025 10:30 AM CDT Office Visit [facility] [place] [address] [place] [address] Teodora Dukes MD [address] [place] [address] 08/31/2025 3:30 AM PULP GRINDER Allied Health/Nurse Visit [facility] [address] [place] [address] Mark Yoon MD 9 [place] [address] 03/16/2026 9:00 AM CDT Office Visit [place] [address] [place] [address] Paige Marr PA-C [address] [place] [address] 03/16/2026 9:00 AM CDT Allied Health/Nurse Visit [place] [address] [place] [address] Mark Yoon MD [address] [place] [address] documented as of this encounter Visit Diagnoses Not on filedocumented in this encounter Additional Health Concerns Infection Onset Date Last Indicated Resolved Time COVID-19 Rule Out 05/03/2021 05/03/2021 05/03/2021 6:21 PM CDT documented as of this encounter Care Teams Development And Planning Engineer Relationship Specialty Start Date End Date Paula Chopra NP [address] [address] PCP - General Nurse Practitioner Family 04/07/20 3 Purnima Valle PA [address] [place] [phone] PCP - General PHYSICIAN GARNISHMENT SPECIALIST 04/24/23 Mike Doherty MD [address] [address] Consulting Physician CARDIOVASCULAR DISEASE 05/09/2102/14 Shari Ennis NP [address] [address] Nurse Practitioner Nurse Practitioner Family 05/09/2102/04 Teodora Dukes MD [address] [place] [address] [place] Tax Collector CARDIOVASCULAR DISEASE 12/02/24 Mark Yoon MD [address] [place] [address] Consulting Physician CLINICAL CARDIAC ELECTROPHYSIOLOGY 02/15/25 Paige Marr PA-C [address] [place] [address] Referring Physician PHYSICIAN GARNISHMENT SPECIALIST 03/14/25 documented as of this encounter
--- OUTSIDE RECORDS SUMMARY | 2025-06-11 10:51 | XMS_ITS | Encounter Summary ---
Author Organization [facility] Address [address] [place] [address] Care Team Providers Care Plastics Heat Welder Name Role Phone Paula Chopra NP Primary Care Provider [phone] Mike Doherty MD Unavailable [phone] Shari Ennis NP Unavailable [phone] Purnima Valle Primary Care Provider [phone] Teodora Dukes MD Unavailable Mark Yoon MD Unavailable [phone] Paige Marr PA-C Unavailable + [phone] Encounter Details Date Type Department Care Team (Late st Contact Info) Description 05/04/2021 Hospital Follow-up Call [facility] [address] [place] [address] Chelle Candelaria RN Social History Tobacco Use [...] than three times a week 04/06/2020 Attends Yarsani Services Never 04/06 Active Member of Clubs [...] move on to questions 3-9 0 09/27/2020 [facility] [place] of Occupat ional Health - Occupational Stress [...] PM CDT Legal Sex Male 6:00 PM HANDER IN Gender Identity Male 04/06/2020 1:53 PM CDT [...] Description 07/07/2025 10:30 AM CDT Office Visit [facility] [place] [address] [place] [address] Teodora Dukes MD [address] [place] [address] 08/31/2025 3:30 AM HANDER IN Allied Health/Nurse Visit [facility] [address] [place] [address] Mark Yoon MD [address] [place] [address] 03/16/2026 9:00 AM CDT Office Visit [facility] [place] [place] [address] Paige Marr PA-C [address] [place] [address] 03/16/2026 9:00 AM CDT Allied Health/Nurse Visit [facility] [place] [address] Mark Yoon MD [address] [place], [place] [phone] documented as of this encounter Visit Diagnoses Not on filedocumented in this encounter Care Teams Plastics Heat Welder Relationship Specialty Start Date End Date Paula Chopra NP [address] [place] [address] PCP - General Nurse Practitioner Family 04/07/20 3 Purnima Valle PA [address] [place] [address] PCP - General PHYSICIAN CHESTNUT TANNER 04/24/23 Mike Doherty MD [address] [facility] [address] [place] [address] Consulting Physician CARDIOVASCULAR DISEASE 05/09/2102/14 Shari Ennis NP [address] [facility] [address] [place] [address] Nurse Practitioner Nurse Practitioner Family 05/09/2102/04 Teodora Dukes MD [address] [place] [address] [place] Music Therapy Specialist CARDIOVASCULAR DISEASE 12/02/24 Mark Yoon MD [address] [place], [place] [phone] Consulting Physician CLINICAL CARDIAC ELECTROPHYSIOLOGY 02/15/25 Paige Marr PA-C [address] [place] [address] Referring Physician PHYSICIAN CHESTNUT TANNER 03/14/25 documented as of this encounter
--- OUTSIDE RECORDS SUMMARY | 2025-06-11 10:51 | XMS_ITS | Encounter Summary ---
Author Organization [facility] Address [facility] [place] [address] Care Team Providers Care Pouncer Name Role Phone Paula Chopra NP Primary Care Provider [phone] Mike Doherty MD Unavailable [phone] Shari Ennis NP Unavailable [phone] Purnima Valle Primary Care Provider [phone] Teodora Dukes MD Unavailable Mark Yoon MD Unavailable [phone] Paige Marr PA-C Unavailable + [phone] Encounter Details Date Type Department Care Team (Late st Contact Info) Description 09/14/2020 90 Day Stroke Follow-up Call [facility] Surveillance Manager [address] [place] [address] Ailin Silver, RN Social History Tobacco Use [...] than three times a week 04/06/2020 Attends Sikhism Services Never 04/06 Active Member of Clubs or Organizations No 04/06/2020 Attends Club or Organization Meetings Never 04/06/2020 Marital Status 04/06/2020 Overall Financial Resource Strain (CARDIA) Answe r Date Recorded Difficulty of Paying Living Expenses Not hard at all 04/06/2020 [facility] Occupat ional Health - Occupational Stress [...] PM CDT Legal Sex Male 6:00 PM SYSTEMS TRAINER Gender Identity Male 04/06/2020 1:53 PM CDT [...] Description 07/07/2025 10:30 AM CDT Office Visit [facility] [place] [address] [place] [address] Teodora Dukes MD [address] [place] [address] 08/31/2025 3:30 AM SYSTEMS TRAINER Allied Health/Nurse Visit [facility] [address] [place] [address] Mark Yoon MD 9 [place] [address] 03/16/2026 9:00 AM CDT Office Visit [place] [address] [place] [address] Paige Marr PA-C [address] [place] [address] 03/16/2026 9:00 AM CDT Allied Health/Nurse Visit [place] [address] [place] [address] Mark Yoon MD [address] [place] [address] documented as of this encounter Visit Diagnoses Not on filedocumented in this encounter Additional Health Concerns Infection Onset Date Last Indicated Resolved Time COVID-19 Rule Out 05/03/2021 05/03/2021 05/03/2021 6:21 PM CDT documented as of this encounter Care Teams Pouncer Relationship Specialty Start Date End Date Paula Chopra NP [address] [address] PCP - General Nurse Practitioner Family 04/07/20 3 Purnima Valle PA [address] [place] [phone] PCP - General PHYSICIAN CAR FERRY MASTER 04/24/23 Mike Doherty MD [address] [address] Consulting Physician CARDIOVASCULAR DISEASE 05/09/2102/14 Shari Ennis NP [address] [address] Nurse Practitioner Nurse Practitioner Family 05/09/2102/04 Teodora Dukes MD [address] [place] [address] [place] Welder Fitter CARDIOVASCULAR DISEASE 12/02/24 Mark Yoon MD [address] [place] [address] Consulting Physician CLINICAL CARDIAC ELECTROPHYSIOLOGY 02/15/25 Paige Marr PA-C [address] [place] [address] Referring Physician PHYSICIAN CAR FERRY MASTER 03/14/25 documented as of this encounter
[2025-06-11] MEDS: METHYLNALTREXONE 12 MG/0.6 ML VIAL SUB-Q (11:23)
--- OUTSIDE RECORDS SUMMARY | 2025-06-11 11:29 | XMS_ITS | Clinical Summary ---
Author Organization [facility] Address [address] [place] [address] Care Team Providers Care High Speed Printer Operator Name Role Phone Nohelia Duval NP Primary Care Provider [phone] Tania Lott MD PhD Unavailable [phone] Allergies No known active allergies Medications [facility] gilteritinib (/MM1 OA-EA02) 40 mg tablet Take 2 tablets (80 mg total) by mouth daily Take with a glass of water, at about the same time each day, with or without food. If a dose is missed, it may be made up within 12 hours of the scheduled administration time. Avoid grapefruit products, Preston oranges, and herbal products. Store at room [...] not be made up. Avoid grapefruit products, Preston oranges, and herbal products. Store at room [...] not be made up. Avoid grapefruit products, Preston oranges, and herbal products. Store at room [...] [x] 05/31/25- Gave c/s letter, maps to [facility] and [facility]. Gave yellow when to call sheet with phone # and after hours # Gave family info document, pt seems reluctant to fill it out. Told him to think about it and bring it to consult on 06/03 with him if he decides to give their info Discharge Disposition []SNF/Rehab: [][facility] [x]Home [place] [address] - distance [place] [address] Caregiver: Requests Sent to []Case Management: [...] Other pending items: 05/28/25- Left VM at [facility] in [place], [place] asking for CB about supportive care [...] tortuous vessels in the right eye and etxn-km-lrsdbuzi intra retinal hemorrhages in the left eye. [...] tortuous vessels in the right eye and nfjy-jq-cgnxmwlt intra retinal hemorrhages in the left eye. [...] tortuous vessels in the right eye and aoag-ps-llvfrtqn intra retinal hemorrhages in the left eye. [...] CD10, CD64, CD34, CD14, CD11b, CD15, CD19, Brooks, Lambda, CD10, CD5, CD200, CD20, CD19, TCRgd, CD2, CD56, CD5, CD8, CD3, [id number], TdT, cyCD3, cyCD22, cyCD1 On myelomatch trial [...] CD10, CD64, CD34, CD14, CD11b, CD15, CD19, Brooks, Lambda, CD10, CD5, CD200, CD20, CD19, TCRgd, CD2, CD56, CD5, CD8, CD3, zqSV33n, TdT, cyCD3, cyCD22, cyCD1 On myelomatch trial [...] CD10, CD64, CD34, CD14, CD11b, CD15, CD19, Brooks, Lambda, CD10, CD5, CD200, CD20, CD19, TCRgd, CD2, CD56, CD5, CD8, CD3, [id number], TdT, cyCD3, cyCD22, cyCD1 On myelomatch trial [...] 368 at OSH, Hgb 4.7. Transferred to [facility] for further work up -Continue hydroxyurea 2 gm TID (05/11- ) and methylprednisolone 80 mg BID (05/12- ) -Continued elevated WBC on admit with concern for leukostasis with increased O2 requirements, headache -S/p leukopheresis on 05/12 and 05/13 with improvement in symptoms -F/u acute leukemia workup per [facility] -TLS ppx with allopurinol and rasburicase x 2 -Infectious workup with RVP neg, blood cultures NGTD, MRSA neg, UA neg -Receiving empiric antibiotics with Cefepime (05/12- ) and Vancomycin (05/12- ) -F/u [facility] recs H/O cerebrovascular accident (CVA) [...] pacemaker placement. Medtronics Katie Xt 05/03/21. Model W1DR01/[id number]. MRI conditional Assessment & Plan (05/11/2025 11:25 PM CDT): Placed dual chamber pacemaker for SSS 04/2021 after embolic stroke in 2019. Per records: Pulse Generator Medtronic [place] XT COPD (chronic obstructive pulmonary disease) 02/2025 [...] Team Description 06/10/2025 9:00 AM CDT Infusion [facility] - Infusion [address] [place] [address] 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 having achieved remission (HCC) 06/10/2025 7:30 AM CDT Infusion [facility] - Infusion [address] [place] [address] 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 having achieved remission (HCC) 06/10/2025 6:30 AM CDT Clinical Support [facility] - Lab Collection [address] [place] [address] 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 having achieved remission (HCC) 06/08/2025 8:00 AM CDT Clinical Support [facility] Medicine Oncology [address] [place] [address] 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 having achieved remission (HCC) 06/08/2025 7:15 AM CDT Clinical Support [facility] - Lab Collection [address] [place] [address] 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 having achieved remission (HCC) 06/08/2025 Telephone [facility] Medicine Bone Marrow Transplant [address] [facility] Floor 6 [place] [address] Tania Doyle RN 06/08/2025 Orders Only [facility] Medicine Bone Marrow Transplant [address] 6 [place] [address] Tania Lott MD PhD 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 achieved remission (HCC) (Primary Dx) 06/04/2025 Orders Only [facility] Medicine Bone Marrow Transplant [address] [place] [phone] Tania Lott MD PhD 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 having achieved remission (HCC) (Primary Dx) 06/04/2025 Orders Only [address] [address] Evelyn Keene 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 having achieved remission (HCC) (Primary Dx) 06/03/2025 11:07 AM CDT - 06/05/2025 5:25 PM CDT Hospital Encounter [address] [address] Tania Lott MD PhD Carlene Leon MD Menon, Priya, MD Anemia, unspecified type (Primary Dx) Discharge Disposition: Discharge to home or self care 06/03/2025 9:00 AM CDT Infusion [facility] [place] - Infusion [address] [place] [phone] 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 having achieved remission (HCC) (Primary Dx) 06/03/2025 8:00 AM CDT Office Visit [facility] Medicine Bone Marrow Transplant [address] [place] [phone] Tania Lott MD PhD 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 having achieved remission (HCC) (Primary Dx) 06/03/2025 6:45 AM CDT Lab [facility] - Lab Collection [address] [place] [address] 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 having achieved remission (HCC) 06/02/2025 Telephone [facility] Medicine Ophthalmology [address] [place] [address] [place] [phone] Angélica Arreguin MD 05/28/2025 Telephone [facility] Medicine Bone Marrow Transplant [address] [place] [phone] Natacha Rodriguez RN 05/27/2025 Orders Only [facility] Medicine Bone Marrow Transplant [address] [place] [phone] Tania Lott MD PhD 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 having achieved remission (HCC) (Primary Dx) 05/26/2025 Orders Only [facility] Bone Marrow Transplant [address] [phone] Tania Lott MD PhD 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 having achieved remission (HCC) (Primary Dx) 05/24/2025 Research Med Pick-Up/CTRU Fermenter Helper [facility] - Infusion [address] [address] Elena Shepehrd, [facility] 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 having achieved remission (HCC) (Primary Dx) 05/24/2025 Orders Only [address] [phone] Dimple Bailey MD PhD 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 having achieved remission (HCC) (Primary Dx) 05/24/2025 Orders Only [address] [phone] Jose Rodriguez, [facility] 05/21/2025 Ophth Exam Ophthalmology Fleecs, Farzaneh Gomez MD 05/18/2025 1:30 PM CDT Clinical Support [facility] [address] [address] Xena Carl, PhD 05/18/2025 9:30 AM CDT Ancillary Procedure [facility] Vascular Lab IP 1 [facility] [address] [place] [address] 05/18/2025 12:40 AM CDT - 05/18/2025 11:59 PM CDT Hospital Encounter [facility] [address] [place] [address] Discharge Disposition: Discharge to home or self care 05/17/2025 Results Follow-Up Bone Marrow Transplant Josh Pereira MD FLT3 Mutation Detection by PCR, Cytogenetics Bone marrow, Potassium, whole blood 05/12/2025 1:36 AM CDT - 06/01/2025 5:45 PM CDT Hospital Encounter [address] [phone] Khoa Cosme MD Lonjers, Zachary Thomas, MD Dipersio, John F., MD PhD Dimple Bailey MD PhD Leukocytosis, unspecified type (Primary Dx); Hyperleukocytosis; Anemia, unspecified type; Retinal hemorrhage noted on examination of both eyes [H35.63]; 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 having achieved remission (HCC) Discharge Disposition: Discharge to home or self care 05/11/2025 Documentation [facility] Medicine Oncology [address] [facility] Floor 6 [place] [address] Polina Peña MD from Last 3 Months [...] How often do you attend chur or mu-ism services? Never 06/05/2025 Do you belong to any clubs o r organizations such as nondenominational groups, unions, fraternal or athletic groups, or [...] any time in the past 12 m [facility], were you homeless or living in a longterm (including now)? No 06/05/2025 [facility] Utilities Answer Date Recorded In the past [...] Completed 05/12/2025 Medical Devices Implanted Type Area Sound Installation Worker Device Identifier Shelf Expiration Date Model / Serial / Lot Medtronic Capsurefix Novus Mri Ra Lead 4076-52- 021 Implanted:04/07 (Quantity not on file) Lead Heart Medtronic Cardiac Rhythm Mgmt 4076-52 / [id number] / Medtronic Capsurefix Novus Mri Rv Lead 4076-58- [id number] Implanted:04/07 (Quantity not on file) Lead Heart Medtronic Cardiac Rhythm Mgmt 4076-58 / [id number] / Medtronic Katie Xt Dr Mri Ppm [id number]/28/20 21 Implanted:04/07 (Quantity not on file) Pacemaker Chest Wall Medtronic Cardiac Rhythm Mgmt W1DR01 / [id number] / Procedures Procedure Name Priority Date/Time [...] myeloid leukemia not having achieved remission (HCC) WI REMOVAL SUTURES/MATHEW NOT REQUIRING ANESTHESIA Routine 06/01/2025 [...] POTASSIUM, WHOLE BLOOD Routine 11:12 AM CDT WI INSJ NON-TUNNELED CENTRAL VENOUS CATH AGE 7 [...] * eGFR (06/10/2025 6:45 AM CDT) Pathologist [facility] eGFR >90 >=60 mL/min/1. 73 m2 Comment: [...] ORDERABLES Fin al Result ANGELA DUNAWAY [facility] [place] [address] * (ABNORMAL) CBC with auto differential (06/10/2025 6:45 AM CDT) [facility] WBC 1.59(L) 3.80 - 9.90 K/cumm Comment:Testing performed by : [facility], [address] [place] [phone] Hgb 8.9(L) 13.0 - 17.5 g/dL ANGELA DUNAWAY Comment:Testing performed by : [facility], [address] [place] [phone] Hct 25.8(L) 38.9 - 50.3 % CERNER BJ Comment:Testing performed by : [facility], [address] [place], [place] [phone] Plt 11(C) 150 - 400 K/cumm CERNER BJ Comment: Results Consistent with Previous Results Testing performed by: [facility], [address] [place], [place] [phone] MPV 9.2 6.8 - 10.4 fL CERNER BJ Comment:Testing performed by : [facility], [address] [place], [place] [phone] RBC 2.93(L) 4.30 - 5.80 M/cumm CERNER BJ Comment:Testing performed by : [facility], [address] [place], [place] [phone] MCV 88.1 81.3 - 96.4 fL CERNER BJ Comment:Testing performed by : [facility], [address] [place], [place] [phone] MCH 30.2 27.1 - 33.3 pg CERNER BJ Comment:Testing performed by : [facility], [address] [place], [place] [phone] MCHC 34.3 32.3 - 35.7 g/dL CERNER BJ Comment:Testing performed by : [facility], [address] [place], [place] [phone] RDW CV 16.3(H) 11.1 - 14.9 % CERNER BJ Comment:Testing performed by : [facility], [address] [place], [place] [phone] NRBC abs 0.20(H) 0.00 - 0.01 K/cumm CERNER BJ Comment:Testing performed by : [facility], [address] [place], [place] [phone] Blood 06/10/2025 6:45 AM CDT 06/10/2025 6:48 AM CDT Tania Lott MD PhD LAB BLOOD ORDERABLES Fin al Result [facility] Department [place] [address] * (ABNORMAL) Manual Differential (06/10/2025 6:45 AM CDT) Cells Counted 69 Comment:Testing performed by : [facility], [address] [place] [address] Neutrophil abs 0.86(L) 1.50 - 6.50 K/cumm CERNER BJ Comment:Testing performed by : [facility], [address] [place], [place] [phone] Lymphocyte abs 0.72(L) 0.80 - 3.30 K/cumm CERNER BJ Comment:Testing performed by : [facility], [address] [place] [address] Monocyte abs 0.00(L) 0.20 - 0.80 K/cumm CERNER BJ Comment:Testing performed by : [facility], [address] [place], [place] [phone] Eosinophil abs 0.02 0.00 - 0.50 K/cumm CERNER BJ Comment:Testing performed by : [facility], [address] [place], [place] [phone] Basophil abs 0.00 0.00 - 0.10 K/cumm CERNER BJ Comment:Testing performed by : [facility], [address] [place], [place] [phone] Neutrophil pct 54.0 % CERNER BJ Comment: Interpretive Data Percent cell count reference ranges are not reported, since discordance with absolute values may lead to misinterpretation of CBC data. Current Interpretive Data was last revised on 2018. Testing performed by: [facility], [address] [place], [place] [phone] Lymphocyte pct 45.0 % CERNER BJ Comment: Interpretive Data Percent cell count reference ranges are not reported, since discordance with absolute values may lead to misinterpretation of CBC data. Current Interpretive Data was last revised on 2018. Testing performed by: [facility], [address] [place] [address] Monocyte pct 0.0 % CERNER BJ Comment: Interpretive Data Percent cell count reference ranges are not reported, since discordance with absolute values may lead to misinterpretation of CBC data. Current Interpretive Data was last revised on 2018. Testing performed by: [facility], [address] [place], [place] [address] Eosinophil pct 1.0 % CERNER BJ Comment: Interpretive Data Percent cell count reference ranges are not reported, since discordance with absolute values may lead to misinterpretation of CBC data. Current Interpretive Data was last revised on 2018. Testing performed by: [facility], [address] [place], [place] [id number] Basophil pct 0.0 % CERNER BJ Comment: Interpretive Data Percent cell count reference ranges are not reported, since discordance with absolute values may lead to misinterpretation of CBC data. Current Interpretive Data was last revised on 2018. Testing performed by: [facility], [address] [place], [place] [phone] Smudge cells, qual Present(A ) CERNER BJ Comment:Testing performed by : [facility], [address] [place], [place] [phone] RBC morphology NRBCs present(A ) CERNER BJ Comment:Testing performed by : [facility], [address] [place] [address] Polychromasia 1+(A) CERNER BJ Comment:Testing performed by : [facility], [address] [place], [place] [phone] Hypochromasia 2+(A) CERNER BJ Comment:Testing performed by : [facility], [address] [place] [address] Anisocytosis 1+(A) CERNER BJ Comment:Testing performed by : [facility], [address] [place], [place] [phone] Poikilocytosis 1+(A) CERNER BJ Comment:Testing performed by : [facility], [address] [place] [phone] Microcytes 2+(A) [facility]ELA [facility] Comment:Testing performed by : [facility], [address] [place], [place] [phone] Macrocytes 1+(A) ANGELA [facility] Comment:Testing performed by : [facility], [address] [place], [place] [phone] Elliptocytes 1+(A) ANGELA [facility] Comment:Testing performed by : [facility], [address] [place], [place] [phone] Target cells 1+(A) ANGELA [facility] Comment:Testing performed by : [facility], [address] [place], [place] [phone] Platelet estimate Decreased (A) ANGELA [facility] Comment:Testing performed by : [facility], [address] [place] [phone] Blood 06/10/2025 6:45 AM CDT 06/10/2025 6:48 AM CDT us Tania Lott MD PhD LAB BLOOD ORDERABLES Fin al Result [facility] Department [place] [address] * Type and screen (06/10/2025 6:45 AM CDT) ABO Rh B Positive Benjy, indirect Negative [facility] Blood 06/10/2025 6:45 AM CDT 06/10/2025 7:07 AM CDT Narrative [facility] - 06/10/2025 8:09 AM CDT Has the patient had Daratumumab or Isatuximab in the past 6 months?->Unknown Tania Lott MD PhD LAB BLOOD BANK TEST ORDE PRIMO Final Result [facility] Department [place] [address] * (ABNORMAL) Lactate dehydrogenase (LD) (06/10/2025 6:45 AM CDT) Pathologist [facility] Lactate dehydrogenase (LDH) 336(H) 100 - 250 Units/L Blood 06/10/2025 6:45 AM CDT 06/10/2025 6:51 AM CDT Tania Lott MD PhD LAB BLOOD ORDERABLES Fin al Result [facility] Department [place] [address] * (ABNORMAL) Comprehensive metabolic panel (06/10/2025 6:45 AM CDT) Pathologist [facility] Sodium 136 135 - 145 mmol/L Potassium, pl 3.5 3.3 - 4.9 mmol/L [facility] Chloride 102 97 - 110 mmol/L [facility] CO2 26 22 - 32 mmol/L [facility] Anion gap 8 2 - 15 mmol/L [facility] BUN 7 6 - 25 mg/dL [facility] Creatinine 0.74(L) 0.80 - 1.30 mg/dL [facility] Glucose 87 70 - 199 mg/dL [facility] Comment: Interpretive Data Fasting glucose >/= 126 [...] 8.5 8.5 - 10.3 mg/dL [facility] Bilirubin, total 0.7 0.1 - 1.2 mg/dL [facility] Protein, pl 6.0(L) 6.5 - 8.5 g/dL [facility] Albumin 3.6 3.5 - 5.0 g/dL [facility] Alk phos 63 40 - 130 Units/L [facility] ALT 37 7 - 55 Units/L [facility] AST 40 10 - 50 Units/L ANGELA [facility] Blood 06/10/2025 6:45 AM CDT 06/10/2025 6:51 AM CDT Tania Lott MD PhD LAB BLOOD ORDERABLES Fin al Result [facility] Department [place] [address] * (ABNORMAL) CBC with auto differential (06/08/2025 8:12 AM CDT) WBC 2.11(L) 3.80 - 9.90 K/cumm Comment:Testing performed by : [facility], [address] [place] [address] Hgb 9.0(L) 13.0 - 17.5 g/dL [facility] Comment:Testing performed by : [facility], [address] [place] [address] Hct 25.8(L) 38.9 - 50.3 % CERAZRA BJ Comment:Testing performed by : [facility], [address] [place] [address] Plt 12(C) 150 - 400 K/cumm ANGELA BJ Comment: Results Consistent with Previous Results Testing performed by: [facility], [address] [place] [address] MPV 9.1 6.8 - 10.4 fL CERAZRA BJ Comment:Testing performed by : [facility], [address] [place] [address] RBC 2.96(L) 4.30 - 5.80 M/cumm CERAZRA BJ Comment:Testing performed by : [facility], [address] [place] [address] MCV 87.2 81.3 - 96.4 fL CERAZRA BJ Comment:Testing performed by : [facility], [address] [place], [place] [phone] MCH 30.4 27.1 - 33.3 pg ANGELA DUNAWAY Comment:Testing performed by : [facility], [address] [place], [place] [phone] MCHC 34.9 32.3 - 35.7 g/dL ANGELA DUNAWAY Comment:Testing performed by : [facility], [address] [place], [place] [phone] RDW CV 15.8(H) 11.1 - 14.9 % ANGELA [facility] Comment:Testing performed by : [facility], [address] [place], [place] [phone] NRBC abs 0.10(H) 0.00 - 0.01 K/cumm ANGELA [facility] Comment:Testing performed by : [facility], [address] [place], [place] [phone] Blood 06/08/2025 8:12 AM CDT 06/08/2025 8:18 AM CDT Narrative [facility] - 06/08/2025 8:30 AM CDT 06/08 06/11 06/14 Tania Lott MD PhD LAB BLOOD ORDERABLES Fin al Result [facility] Department [place] [address] * (ABNORMAL) Manual Differential (06/08/2025 8:12 AM CDT) Cells Counted 148 Comment:Testing performed by : [facility], [address] [place], [place] [phone] Neutrophil abs 1.41(L) 1.50 - 6.50 K/cumm ANGELA DUNAWAY Comment:Testing performed by : [facility], [address] [place], [place] [phone] Lymphocyte abs 0.63(L) 0.80 - 3.30 K/cumm [facility] Comment:Testing performed by : [facility], [address] [place] [phone] Monocyte abs 0.00(L) 0.20 - 0.80 K/cumm [facility] Comment:Testing performed by : [facility], [address] [place], [place] [phone] Eosinophil abs 0.04 0.00 - 0.50 K/cumm [facility] Comment:Testing performed by : [facility], [address] [place] [address] Basophil abs 0.02 0.00 - 0.10 K/cumm [facility] Comment:Testing performed by : [facility], [address] [place] [address] Neutrophil pct 67.0 % CERNER BJ Comment: Interpretive Data Percent cell count reference ranges are not reported, since discordance with absolute values may lead to misinterpretation of CBC data. Current Interpretive Data was last revised on 2018. Testing performed by: [facility], [address] [place] [address] Lymphocyte pct 30.0 % CERNER BJ Comment: Interpretive Data Percent cell count reference ranges are not reported, since discordance with absolute values may lead to misinterpretation of CBC data. Current Interpretive Data was last revised on 2018. Testing performed by: [facility], [address] [place] [phone] Monocyte pct 0.0 % CERNER BJ Comment: Interpretive Data Percent cell count reference ranges are not reported, since discordance with absolute values may lead to misinterpretation of CBC data. Current Interpretive Data was last revised on 2018. Testing performed by: [facility], [address] [place] [phone] Eosinophil pct 2.0 % [facility] Comment: Interpretive Data Percent cell count reference ranges are not reported, since discordance with absolute values may lead to misinterpretation of CBC data. Current Interpretive Data was last revised on 2018. Testing performed by: [facility], [address] [place] [phone] Basophil pct 1.0 % ANGELA [facility] Comment: Interpretive Data Percent cell count reference ranges are not reported, since discordance with absolute values may lead to misinterpretation of CBC data. Current Interpretive Data was last revised on 2018. Testing performed by: [facility], [address] [place] [phone] RBC morphology NRBCs present(A ) ANGELA [facility] Comment:Testing performed by : [facility], [address] [place] [phone] Hypochromasia 1+(A) [facility] Comment:Testing performed by : [facility], [address] [place], [place] [phone] Anisocytosis 2+(A) [facility] Comment:Testing performed by : [facility], [address] [place] [phone] Microcytes 1+(A) [facility] Comment:Testing performed by : [facility], [address] [place] [phone] Macrocytes 1+(A) [facility] Comment:Testing performed by : [facility], [address] [place] [phone] Target cells 1+(A) [facility] Comment:Testing performed by : [facility], [address] [place] [phone] Platelet estimate Decreased (A) [facility] Comment:Testing performed by : [facility], [address] [place] [phone] Blood 06/08/2025 8:12 AM CDT 06/08/2025 8:18 AM CDT us Tania Lott MD PhD LAB BLOOD ORDERABLES Fin al Result [facility] [place] [address] * Type and screen (06/08/2025 8:12 AM CDT) Benjy, indirect Negative ABO Rh B Positive [facility] Blood 06/08/2025 8:12 AM CDT 06/08/2025 8:24 AM CDT Narrative [facility] - 06/08/2025 9:17 AM CDT 06/08 9 9 Has the patient had Daratumumab or Isatuximab in the past 6 months?->Unknown us Tania Lott MD PhD LAB BLOOD BANK TEST ORDE PRIMO Final Result [facility] [place] [address] * eGFR (06/08/2025 8:02 AM CDT) Pathologist [facility] eGFR >90 >=60 mL/min/1. 73 m2 Comment: [...] PhD LAB BLOOD ORDERABLES Fi nal Result [facility] [place] [address] * (ABNORMAL) Uric acid (06/08/2025 8:02 AM CDT) Pathologist [facility] Uric acid 2.9(L) 3.0 - 8.0 mg/dL Blood 06/08/2025 8:02 AM CDT 06/08/2025 8:23 AM CDT Dimple Bailey MD PhD LAB BLOOD ORDERAB[place] [address] * Magnesium (06/08/2025 8:02 AM CDT) [facility] Magnesium 2.2 1.4 - 2.5 mg/dL Blood 06/08/2025 8:02 AM CDT 06/08/2025 8:23 AM CDT Dimple Bailey MD PhD LAB BLOOD ORDERAB[place] [address] * (ABNORMAL) Lactate dehydrogenase (LD) (06/08/2025 8:02 AM CDT) [facility] Lactate dehydrogenase (LDH) 329(H) 100 - 250 Units/L Blood 06/08/2025 8:02 AM CDT 06/08/2025 8:23 AM CDT Dimple Bailey MD PhD LAB BLOOD ORDERAB[place] [address] * Creatine kinase (CK), total (06/08/2025 8:02 AM CDT) CK 53 40 - 300 Units/L Blood 06/08/2025 8:02 AM CDT 06/08/2025 8:23 AM CDT us Dimple Bailey MD PhD LAB BLOOD ORDERABLES Fi nal Result [facility] [place] [address] * (ABNORMAL) Comprehensive metabolic panel (06/08/2025 8:02 AM CDT) Sodium 136 135 - 145 mmol/L Potassium, pl 3.8 3.3 - 4.9 mmol/L [facility] Chloride 100 97 - 110 mmol/L [facility] CO2 29 22 - 32 mmol/L [facility] Anion gap 7 2 - 15 mmol/L [facility] BUN 6 6 - 25 mg/dL [facility] Creatinine 0.83 0.80 - 1.30 mg/dL [facility] Glucose 96 70 - 199 mg/dL [facility] Comment: Interpretive Data Fasting glucose >/= 126 [...] 2022. Calcium 8.9 8.5 - 10.3 mg/dL [facility] Bilirubin, total 0.8 0.1 - 1.2 mg/dL [facility] Protein, pl 6.2(L) 6.5 - 8.5 g/dL [facility] Albumin 3.7 3.5 - 5.0 g/dL [facility] Alk phos 63 40 - 130 Units/L [facility] ALT 35 7 - 55 Units/L [facility] AST 31 10 - 50 Units/L [facility] Blood 06/08/2025 8:02 AM CDT 06/08/2025 8:23 AM CDT Dimple Bailey MD PhD LAB BLOOD ORDERABLES Fi nal Result Performing Organization Address City/[facility]/ZIP Co de Phone Number [facility] [place] [address] * eGFR (06/05/2025 2:23 PM CDT) eGFR [...] CDT 06/05/2025 2:35 PM CDT us Keira Adam MD LAB BLOOD ORDERABLES Final Resul t Performing Organization Address City/[facility]/ZIP Co de Phone Number [facility] [place] [address] * (ABNORMAL) Basic metabolic panel (06/05/2025 2:23 PM CDT) Sodium 133(L) 135 - 145 mmol/L Potassium, pl 3.8 3.3 - 4.9 mmol/L [facility] Chloride 95(L) 97 - 110 mmol/L [facility] CO2 32 22 - 32 mmol/L [facility] Anion gap 6 2 - 15 mmol/L [facility] BUN 16 6 - 25 mg/dL [facility] Creatinine 1.00 0.80 - 1.30 mg/dL [facility] Glucose 99 70 - 199 mg/dL [facility] Comment: Interpretive Data Fasting glucose >/= 126 [...] 2022. Calcium 8.9 8.5 - 10.3 mg/dL [facility] Blood 06/05/2025 2:23 PM CDT 06/05/2025 2:35 PM CDT Keira Adam MD LAB BLOOD ORDERABLES Final Resul t Performing Organization Address City/[facility] Co de Phone Number [facility] Department [facility] [place], [place] [id number] * Transfuse RBC (06/05/2025 6:45 AM CDT) Blood Keira Adam MD BLOOD TRANSFUSION ORDERABLES Fin al Result Performing Organization Address City/[facility] Co de Phone Number [facility] [place] [address] * Prepare RBC: 1 Units (06/05/2025 1:43 AM CDT) [facility] Signature Product code [id number] Unit Number [id number] [facility] Product Blood Type BPOS [facility] Dispense Status PRESUMED TRANSFUSED [facility] Blood Venous blood specimen / Unknown 06/05/2025 1:43 AM CDT 06/05/2025 1:43 AM CDT Narrative [facility] - 06/05/2025 8:00 PM CDT Are special requirements needed? (All products are leukoreduced and CMV- safe)- >Yes Date required:-20250514 Special Req 1:-Irradiated LRRBC # of [id number] Reasons:-BMT, Hgb <8 g/dL} Keira Adam MD BLOOD BANK PRODUCT ORDERABLES Fi nal Result [facility] [place] [address] * (ABNORMAL) Immature platelet fraction (06/05/2025 12:32 AM CDT) Pathologist [facility] IPF 13.5(H) 1.6 - 10.1 % Blood 06/05/2025 12:3 2 AM CDT 06/05/2025 12:46 AM CDT Keira Adam MD LAB BLOOD ORDERABLES Final Resul t Performing Organization Address City/[facility]/ZIP Co de Phone Number [facility] [place] [address] * eGFR (06/05/2025 12:32 AM CDT) eGFR [...] MD LAB BLOOD ORDERABLES Final Resul t [facility] [place] [address] * (ABNORMAL) Differential, auto (06/05/2025 12:32 AM CDT) Neutrophil abs 1.56 1.50 - 6.50 K/cumm Imm gran abs 0.02 0.00 - 0.10 K/cumm [facility] Lymphocyte abs 1.10 0.80 - 3.30 K/cumm [facility] Monocyte abs 0.05(L) 0.20 - 0.80 K/cumm [facility] Eosinophil abs 0.02 0.00 - 0.50 K/cumm [facility] Basophil abs 0.00 0.00 - 0.10 K/cumm [facility] Neutrophil pct 56.8 % [facility] Comment: Interpretive Data Percent cell count reference ranges are not reported, since discordance with absolute values may lead to misinterpretation of CBC data. Current Interpretive Data was last revised on 2018. Imm gran pct 0.7 % [facility] Comment: Interpretive Data Percent cell count reference ranges are not reported, since discordance with absolute values may lead to misinterpretation of CBC data. Current Interpretive Data was last revised on 2018. Lymphocyte pct 40.0 % [facility] Comment: Interpretive Data Percent cell count reference ranges are not reported, since discordance with absolute values may lead to misinterpretation of CBC data. Current Interpretive Data was last revised on 2018. Monocyte pct 1.8 % [facility] Comment: Interpretive Data Percent cell count reference ranges are not reported, since discordance with absolute values may lead to misinterpretation of CBC data. Current Interpretive Data was last revised on 2018. Eosinophil pct 0.7 % [facility] Comment: Interpretive Data Percent cell count reference ranges are not reported, since discordance with absolute values may lead to misinterpretation of CBC data. Current Interpretive Data was last revised on 2018. Basophil pct 0.0 % [facility] Comment: Interpretive Data Percent cell count reference ranges are not reported, since discordance with absolute values may lead to misinterpretation of CBC data. Current Interpretive Data was last revised on 2018. Blood 06/05/2025 12:3 2 AM CDT 06/05/2025 12:41 AM CDT us Keira Adam MD LAB BLOOD ORDERABLES Final Resul t [facility] [place] [address] * (ABNORMAL) CBC with auto differential (06/05/2025 12:32 AM CDT) WBC 2.62(L) 3.80 - 9.90 K/cumm Hgb 7.3(L) 13.0 - 17.5 g/dL [facility] Hct 20.3(L) 38.9 - 50.3 % [facility] Plt 22(C) 150 - 400 K/cumm [facility] Comment:No clot detected in sample. Platelet count confirmed by additional testing. Critical platelet count threshold determined by patient location: Outpatient:<50 K/cumm , Inpatient adults:<20 K/cumm , Inpatient pediatric:<25 K/cumm, BMT service:<10 K/cumm MPV 10.8 9.1 - 12.3 fL [facility] RBC 2.40(L) 4.30 - 5.80 M/cumm [facility] MCV 84.6 81.3 - 96.4 fL [facility] MCH 30.4 27.1 - 33.3 pg [facility] MCHC 36.0(H) 32.3 - 35.7 g/dL [facility] RDW CV 16.5(H) 11.1 - 14.9 % [facility] RDW SD 46.5 35.7 - 48.1 fL [facility] NRBC abs 0.08(H) 0.00 - 0.01 K/cumm [facility] Blood 06/05/2025 12:3 2 AM CDT 06/05/2025 12:41 AM CDT Keira Adam MD LAB BLOOD ORDERABLES Final Resul t Performing Organization Address City/[facility]/ZIP Co de Phone Number [facility] [place] [address] * Phosphorus (06/05/2025 12:32 AM CDT) [facility] Phosphorus, pl 3.5 2.3 - 4.5 mg/dL Blood 06/05/2025 12:3 2 AM CDT 06/05/2025 12:41 AM CDT Keira Adam MD LAB BLOOD ORDERABLES Final Resul t Performing Organization Address City/[facility] de Phone Number [facility] Department [place] [address] * (ABNORMAL) Basic metabolic panel (06/05/2025 12:32 AM CDT) [facility] Sodium 133(L) 135 - 145 mmol/L Potassium, pl 3.1(L) 3.3 - 4.9 mmol/L [facility] Chloride 92(L) 97 - 110 mmol/L [facility] CO2 34(H) 22 - 32 mmol/L [facility] Anion gap 7 2 - 15 mmol/L [facility] BUN 20 6 - 25 mg/dL [facility] Creatinine 1.06 0.80 - 1.30 mg/dL [facility] Glucose 101 70 - 199 mg/dL [facility] Comment: Interpretive Data Fasting glucose >/= 126 [...] 2022. Calcium 8.9 8.5 - 10.3 mg/dL [facility] Blood 06/05/2025 12:3 2 AM CDT 06/05/2025 12:41 AM CDT Narrative [facility] - 06/05/2025 1:09 AM CDT Daily except Saturday and . Morning draw. us Keira Adam MD LAB BLOOD ORDERABLES Final Resul t [facility] [place] [address] * eGFR (06/04/2025 4:40 PM CDT) eGFR [...] ORDERABLES Final Resul t Performing Organization Address [facility] Co de Phone Number [facility] Department [place] [address] * (ABNORMAL) Basic metabolic panel (06/04/2025 4:40 PM CDT) [facility] Sodium 136 135 - 145 mmol/L Potassium, pl 3.4 3.3 - 4.9 mmol/L [facility] Chloride 94(L) 97 - 110 mmol/L [facility] CO2 33(H) 22 - 32 mmol/L [facility] Anion gap 9 2 - 15 mmol/L [facility] BUN 22 6 - 25 mg/dL [facility] Creatinine 1.06 0.80 - 1.30 mg/dL [facility] Glucose 114 70 - 199 mg/dL [facility] Comment: Interpretive Data Fasting glucose >/= 126 [...] 2022. Calcium 9.0 8.5 - 10.3 mg/dL [facility] Blood 06/04/2025 4:40 PM CDT 06/04/2025 6:33 PM CDT Keira Adam MD LAB BLOOD ORDERABLES Final Resul t Performing Organization Address [facility] Co de Phone Number [facility] Department [place] [address] * Flow Leukemia/Lymphoma Bone marrow (06/04/2025 12:40 PM CDT) Patel Stain Test Completed Leukemia/Lymp [place] Result See separate Surgical Pathology report. 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 05/24/25) us Bridget Graham ACCOUNT STRATEGIST LAB PATHOLOGY ORDERABLES Fin al Result [facility] [place] [address] * Surgical pathology (06/04/2025 11:47 AM CDT) Biopsy (Bone Marrow Biopsy) 06/04/2025 11:47 AM CDT 06/04/2025 2:07 PM CDT Narrative PATHOLOGY [facility] - 06/08/2025 5:14 PM CDT EPIC results best viewed via link to PDF [facility] [place] [address] Note to Patients: This report may contain [...] Gender: M : 1965 (Age: 60) Address: [address] [place] [id number] Hospital #: [id number] Taken:06/04/2025 Received:06/04/2025 Reported: 06/08/2025 Patient Type: [facility] Inpatient Service: BoneMarTranspl Location: [place] [address] Physician(s): Carlene Leon M.D. MASETR Yang Diagnosis: Bone marrow, left posterior iliac [...] cytometry specimen was examined for internal quality process auditor purposes. By this signature, I attest that [...] Surgical Pathology and Flow Cytometry Departments at [facility] as part of an ongoing vendor quality supervisor program and in compliance with federally mandated [...] Surgical Pathology and Flow Cytometry Departments of [facility]. It has not been cleared or approved by the U. S. Food and Drug Administration. IMAGES AND SCANNED DOCUMENTS, IF INCLUDED, ONLY VIEWABLE IN PDF VERSION OF REPORT Bridget Graham NP LAB PATHOLOGY ORDERABLES Fin al Result PATHOLOGY [facility] 3rd Floor [place], [place] [phone] * XR Chest 1 View (06/04/2025 10:40 [...] MD LAB BLOOD ORDERABLES Final Resul t [facility] [place] [address] * Transfuse platelets (06/04/2025 7:49 AM CDT) Keira Adam MD BLOOD TRANSFUSION ORDERABLES Fin al Result Performing Organization Address City/[facility]/[place] [address] * Prepare platelets: 1 Units (06/04/2025 4:30 AM CDT) [facility] Product code [id number] Unit Number [id number] [facility] Product Blood Type OPOS [facility] Dispense Status PRESUMED TRANSFUSED [facility] Blood Venous blood specimen / Unknown 06/04/2025 4:30 AM CDT 06/04/2025 4:30 AM CDT Narrative [facility] - 06/04/2025 8:00 PM CDT Are special requirements needed? (all products are leukoreduced)->Yes Date required:-20250514 Special Req 1:-Irradiated PLT # of Units:-1-Units Reasons:-Stable, non-bleeding, plt < 10 K/cumm} Keira Adam MD BLOOD BANK PRODUCT ORDERABLES Fi nal Result Performing Organization Address [facility] Co de Phone Number [facility] Department [place] [address] * (ABNORMAL) Immature platelet fraction (06/04/2025 3:59 AM CDT) [facility] IPF 29.6(H) 1.6 - 10.1 % Blood 06/04/2025 3:59 AM CDT 06/04/2025 4:16 AM CDT Keira Adam MD LAB BLOOD ORDERABLES Final Resul t Performing Organization Address [facility] [place] [address] * eGFR (06/04/2025 3:59 AM CDT) [facility] eGFR 67 >=60 mL/min/1. 73 m2 Comment: [...] MD LAB BLOOD ORDERABLES Final Resul t [facility] Department [place] [address] * (ABNORMAL) Differential, auto (06/04/2025 3:59 AM CDT) [facility] Neutrophil abs 2.45 1.50 - 6.50 K/cumm Imm gran abs 0.04 0.00 - 0.10 K/cumm [facility] Lymphocyte abs 0.49(L) 0.80 - 3.30 K/cumm [facility] Monocyte abs 0.04(L) 0.20 - 0.80 K/cumm [facility] Eosinophil abs 0.02 0.00 - 0.50 K/cumm [facility] Basophil abs 0.00 0.00 - 0.10 K/cumm [facility] Neutrophil pct 80.6 % [facility] Comment: Interpretive Data Percent cell count reference ranges are not reported, since discordance with absolute values may lead to misinterpretation of CBC data. Current Interpretive Data was last revised on 2018. Imm gran pct 1.3 % [facility] Comment: Interpretive Data Percent cell count reference ranges are not reported, since discordance with absolute values may lead to misinterpretation of CBC data. Current Interpretive Data was last revised on 2018. Lymphocyte pct 16.1 % [facility] Comment: Interpretive Data Percent cell count reference ranges are not reported, since discordance with absolute values may lead to misinterpretation of CBC data. Current Interpretive Data was last revised on 2018. Monocyte pct 1.3 % [facility] Comment: Interpretive Data Percent cell count reference ranges are not reported, since discordance with absolute values may lead to misinterpretation of CBC data. Current Interpretive Data was last revised on 2018. Eosinophil pct 0.7 % [facility] Comment: Interpretive Data Percent cell count reference ranges are not reported, since discordance with absolute values may lead to misinterpretation of CBC data. Current Interpretive Data was last revised on 2018. Basophil pct 0.0 % [facility] Comment: Interpretive Data Percent cell count reference ranges are not reported, since discordance with absolute values may lead to misinterpretation of CBC data. Current Interpretive Data was last revised on 2018. Blood 06/04/2025 3:59 AM CDT 06/04/2025 4:12 AM CDT us Keira Adam MD LAB BLOOD ORDERABLES Final Resul t [facility] [place] [address] * (ABNORMAL) CBC with auto differential (06/04/2025 3:59 AM CDT) WBC 3.04(L) 3.80 - 9.90 K/cumm Hgb 8.9(L) 13.0 - 17.5 g/dL [facility] Hct 24.9(L) 38.9 - 50.3 % [facility] Plt 9(C) 150 - 400 K/cumm [facility] Comment:This result has been called to nciole carvalho rn by [email or web address] on 06/04/2025 04:25:32, and has been read back. MPV Not Measured 9.1 - 12.3 fL [facility] RBC 2.95(L) 4.30 - 5.80 M/cumm [facility] MCV 84.4 81.3 - 96.4 fL [facility] MCH 30.2 27.1 - 33.3 pg [facility] MCHC 35.7 32.3 - 35.7 g/dL [facility] RDW CV 16.7(H) 11.1 - 14.9 % [facility] RDW SD 46.4 35.7 - 48.1 fL [facility] NRBC abs 0.15(H) 0.00 - 0.01 K/cumm [facility] Blood 06/04/2025 3:59 AM CDT 06/04/2025 4:12 AM CDT Keira Adam MD LAB BLOOD ORDERABLES Final Resul t Performing Organization Address City/[facility] Co de Phone Number [facility] Department [place] [address] * (ABNORMAL) Phosphorus (06/04/2025 3:59 AM CDT) Pathologist [facility] Phosphorus, pl 2.2(L) 2.3 - 4.5 mg/dL Blood 06/04/2025 3:59 AM CDT 06/04/2025 4:11 AM CDT Keira Adam MD LAB BLOOD ORDERABLES Final Resul t Performing Organization Address [facility] Co de Phone Number [facility] [place] [address] * (ABNORMAL) Basic metabolic panel (06/04/2025 3:59 AM CDT) Sodium 129(L) 135 - 145 mmol/L Potassium, pl 3.3 3.3 - 4.9 mmol/L [facility] Chloride 87(L) 97 - 110 mmol/L [facility] CO2 34(H) 22 - 32 mmol/L [facility] Anion gap 8 2 - 15 mmol/L [facility] BUN 28(H) 6 - 25 mg/dL [facility] Creatinine 1.25 0.80 - 1.30 mg/dL [facility] Glucose 108 70 - 199 mg/dL [facility] Comment: Interpretive Data Fasting glucose >/= 126 [...] 2022. Calcium 9.0 8.5 - 10.3 mg/dL [facility] Blood 06/04/2025 3:59 AM CDT 06/04/2025 4:11 AM CDT Narrative [facility] - 06/04/2025 4:41 AM CDT Daily except Saturday and . Morning draw. us Keira Adam MD LAB BLOOD ORDERABLES Final Resul t [facility] [place] [address] * Urinalysis reflex to microscopic and culture Urine, clean voided (06/04/2025 3:27 AM CDT) Color, ur Straw Yellow Clarity, ur Clear Clear [facility] Specific gravity, ur 1.018 1.003 - 1.030 [facility] pH, urine 6.5 [facility] Comment: Interpretive Data U rine pH is affected by diet, medications, systemic acid-base disturbances, and renal tubular function. pH may affect urinary stone formation. For example, urine pH below 6.0 may help reduce the tendency for calcium phosphate stones and pH greater than 6.0 may reduce the tendency for uric acid stone formation. Source: [facility] Current Interpretive Data was last revised on 2017 Protein, ur ql Trace Negative [facility] Glucose, ur ql Negative Negative [facility] Ketones, ur Negative Negative [facility] Bilirubin, ur Negative Negative [facility] Blood, ur Negative Negative [facility] Urobilinogen, ur <2.0 <2.0 mg/dL [facility] Nitrite, ur Negative Negative [facility] Leukocyte esterase, ur Negative Negative [facility] UA reflex comment Reflex conditions for microscopic UA and culture not met. [facility] Urine, clean voided 06/04/2025 3:27 AM CDT 06/04/2025 3:35 AM CDT us Keira Adam MD LAB MICROBIOLOGY - GENERAL ORDER BIANKA Final Result Performing Organization Address [facility] Co de Phone Number [facility] Department [place] [address] * Sodium, urine, random (06/04/2025 3:27 AM CDT) Sodium, ur <20 mmol/L Comment: Repeated and Verified Interpretive Data No reference range established. Current interpretive data was last revised 2019. Urine 06/04/2025 3:27 AM CDT 06/04/2025 3:39 AM CDT us Keira Adam MD LAB URINE ORDERABLES Final Resul t Performing Organization Address [facility] Co de Phone Number [facility] [place] [address] * Osmolality, urine (06/04/2025 3:27 AM CDT) Osmo, ur 507 mOsm/kg Urine 06/04/2025 3:27 AM CDT 06/04/2025 3:39 AM CDT Keira Adam MD LAB URINE ORDERABLES Final Resul t Performing Organization Address [facility] de Phone Number ANGELA [facility] [place] [address] * eGFR (06/03/2025 9:54 PM CDT) eGFR [...] ORDERABLES Final Resul t Performing Organization Address [facility] Co de Phone Number ANGELA DUNAWAY [facility] [place] [address] * Uric acid (06/03/2025 9:54 PM CDT) Uric acid 7.8 3.0 - 8.0 mg/dL Blood 06/03/2025 9:54 PM CDT 06/03/2025 10:10 PM CDT us Tania Lott MD PhD LAB BLOOD ORDERABLES Fin al Result [facility] [place] [address] * (ABNORMAL) Osmolality, blood (06/03/2025 9:54 PM CDT) [facility] Osmo 270(L) 275 - 300 mOsm/kg Blood 06/03/2025 9:54 PM CDT 06/03/2025 10:10 PM CDT Keira Adam MD LAB BLOOD ORDERABLES Final Resul t Performing Organization Address [facility] Co de Phone Number [facility] [place] [address] * (ABNORMAL) Basic metabolic panel (06/03/2025 9:54 PM CDT) [facility] Sodium 130(L) 135 - 145 mmol/L Potassium, pl 3.1(L) 3.3 - 4.9 mmol/L [facility] Chloride 86(L) 97 - 110 mmol/L [facility] CO2 36(H) 22 - 32 mmol/L [facility] Anion gap 8 2 - 15 mmol/L [facility] BUN 30(H) 6 - 25 mg/dL [facility] Creatinine 1.32(H) 0.80 - 1.30 mg/dL [facility] Glucose 103 70 - 199 mg/dL [facility] Comment: Interpretive Data Fasting glucose >/= 126 [...] 2022. Calcium 8.8 8.5 - 10.3 mg/dL [facility] Blood 06/03/2025 9:54 PM CDT 06/03/2025 10:10 PM CDT us Keira Adam MD LAB BLOOD ORDERABLES Final Resul t Performing Organization Address [facility] [place] [address] * Sepsis Lactate w/ Reflex (06/03/2025 5:42 PM CDT) [facility] Sepsis Lactate 1.8 0.7 - 2.0 mmol/L Blood 06/03/2025 5:42 PM CDT 06/03/2025 6:00 PM CDT Narrative [facility] - 06/03/2025 6:09 PM CDT Obtain Lactate [...] ORDERABLES Final Resul t Performing Organization Address [facility] de Phone Number [facility] [place] [address] * ECG 12 lead (06/03/2025 3:32 PM CDT) [facility] Ventricular Rate EKG/Min 60 BPM [facility] Atrial Rate [address] [facility] WI-Interval (MSEC) [address] [facility] QRS-Interval (MSEC) [address] [facility] QT-Interval (MSEC) [address] [facility] QTc [address] [facility] P [place] [address] [facility] R [place] [address] [facility] T [place] -[address] [facility] Diagnosis Normal sinus rhythm Rightward axis Abnormal QRS-T angle, consider primary T wave abnormality Prolonged QT Abnormal ECG Confirmed by Quader MD, Nishath ([id number]) on 06/08/2025 8:52:44 AM [facility] 06/03/2025 3:32 PM CDT 06/08/2025 8:52 AM CDT us Keira Adam MD ECG ORDERABLES Final Result [facility] * Respiratory pathogen panel Nasopharyngeal (06/03/2025 3:22 PM CDT) Pathologist [facility] Influenza A RNA Not Detected Not Detected Influenza B RNA Not Detected Not Detected [facility] RSV RNA Not Detected Not Detected [facility] COVID-19 RNA Not Detected Not Detected [facility] Coronavirus 229E RNA Not Detected Not Detected [facility] Coronavirus HKU1 RNA Not Detected Not Detected [facility] Coronavirus NL63 RNA Not Detected Not Detected [facility] Coronavirus OC43 RNA Not Detected Not Detected [facility] Adenovirus DNA Not Detected Not Detected [facility] Metapneumovirus RNA Not Detected Not Detected [facility] Rhinovirus/Enterov irus RNA Not Detected Not Detected [facility] Parainfluenza 1 RNA Not Detected Not Detected [facility] Parainfluenza 2 RNA Not Detected Not Detected [facility] Parainfluenza 3 RNA Not Detected Not Detected [facility] Parainfluenza 4 RNA Not Detected Not Detected [facility] B. pertussis DNA Not Detected Not Detected [facility] B. parapertussis DNA Not Detected Not Detected [facility] C. pneumoniae DNA Not Detected Not Detected [facility] M. pneumoniae DNA Not Detected Not Detected [facility] Nasopharyngeal 06/03/2025 3: 22 PM CDT 06/03/2025 4:35 PM CDT Narrative [facility] - 06/03/2025 5:56 PM CDT Is the Patient experiencing symptoms consistent with COVID?->Yes Surveillance testing for transplant patient?->No Interpretive Data The [employer]-Share FilmArray Respiratory Panel (RP2.1) assay is a [...] assay has FDA clearance for testing of ACCOUNT STRATEGIST swabs. The performance of additional specimen types has been assessed by the performing laboratory. The performance characteristics of this assay have been determined by [facility] Molecular Infectious Disease Laboratory. Current interpretive data was last revised on 22. us Keira Adam MD LAB MICROBIOLOGY - GENERAL ORDER BIANKA Final Result [facility] [place] [address] * Blood culture Blood (06/03/2025 9:01 AM [...] performance characteristics have been verified by the [facility] Microbiology Laboratory. For questions about this culture, contact the Microbiology Laboratory at [phone]. Interpretive data was last revised on 24. Tania Lott MD PhD LAB MICROBIOLOGY - [facility] AL ORDERABLES Final Result ANGELA [facility] [place] [address] * (ABNORMAL) Sepsis Lactate w/ Reflex (06/03/2025 9:00 AM CDT) Sepsis Lactate 3.3(H) 0.7 - 2.0 mmol/L Blood 06/03/2025 9:00 AM CDT 06/03/2025 9:20 AM CDT Tania Lott MD PhD LAB BLOOD ORDERABLES Fin al Result Performing Organization Address [facility] Co de Phone Number ANGELA [facility] [place] [address] * Blood culture Blood (06/03/2025 9:00 AM CDT) Report Final Report: No growth Blood 06/03/2025 9:00 AM CDT 06/03/2025 11:48 AM CDT [facility] - 06/07/2025 12:00 PM CDT 1. Blood [...] performance characteristics have been verified by the [facility] Microbiology Laboratory. For questions about this culture, contact the Microbiology Laboratory at [phone]. Interpretive data was last revised on 24. Tania Lott MD PhD LAB MICROBIOLOGY - GENER AL ORDERABLES Final Result Performing Organization Address [facility] Co de Phone Number ANGELA [facility] [place] [address] * (ABNORMAL) eGFR (06/03/2025 7:08 AM CDT) [...] PhD LAB BLOOD ORDERABLES Fin al Result [facility] [place] [address] * Critical Result Callback Chemistry (06/03/2025 7:08 AM CDT) Date Notified [id number] Time Notified 754 ANGELA [facility] TestName Potassium Plas ANGELA DUNAWAY Called/Read Back Tania DUNAWAY Credentials MARTINA DUNAWAY Called By cyndi DUNAWAY Blood 06/03/2025 7:08 AM CDT 06/03/2025 7:16 AM CDT us Tania Lott MD PhD LAB BLOOD ORDERABLES Fin al Result [facility] [address] * (ABNORMAL) CMV, IgG Blood (06/03/2025 7:08 AM CDT) [facility] CMV IgG Positive( A) Negative Comment: Interpretive [...] AL ORDERABLES Final Result Performing Organization Address [facility] [place] [address] * (ABNORMAL) Lactate dehydrogenase (LD) (06/03/2025 7:08 AM CDT) [facility] Lactate dehydrogenase (LDH) 377(H) 100 - 250 Units/L Blood 06/03/2025 7:08 AM CDT 06/03/2025 7:16 AM CDT Tania Lott MD PhD LAB BLOOD ORDERABLES Fin al Result Performing Organization Address City/[facility]/[place] [address] * (ABNORMAL) Comprehensive metabolic panel (06/03/2025 7:08 AM CDT) [facility] Sodium 129(L) 135 - 145 mmol/L Potassium, pl 2.2(C) 3.3 - 4.9 mmol/L [facility] Comment:Reviewed Chloride 78(L) 97 - 110 mmol/L [facility] CO2 35(H) 22 - 32 mmol/L [facility] Anion gap 16(H) 2 - 15 mmol/L [facility] BUN 31(H) 6 - 25 mg/dL [facility] Creatinine 1.59(H) 0.80 - 1.30 mg/dL [facility] Glucose 141 70 - 199 mg/dL [facility] Comment: Interpretive Data Fasting glucose >/= 126 [...] 2022. Calcium 9.8 8.5 - 10.3 mg/dL [facility] Bilirubin, total 1.6(H) 0.1 - 1.2 mg/dL [facility] Protein, pl 7.4 6.5 - 8.5 g/dL [facility] Albumin 4.4 3.5 - 5.0 g/dL [facility] Alk phos 68 40 - 130 Units/L [facility] ALT 56(H) 7 - 55 Units/L [facility] AST 55(H) 10 - 50 Units/L [facility] Blood 06/03/2025 7:08 AM CDT 06/03/2025 7:16 AM CDT Tania Lott MD PhD LAB BLOOD ORDERABLES Fin al Result [facility] [place] [address] * (ABNORMAL) CBC with auto differential (06/03/2025 7:06 AM CDT) WBC 4.23 3.80 - 9.90 K/cumm Comment:Testing performed by : [facility], [address] [place] [phone] Hgb 11.2(L) 13.0 - 17.5 g/dL CERNER BJ Comment:Testing performed by : [facility], [address] [place], [place] [phone] Hct 31.6(L) 38.9 - 50.3 % CERNER BJ Comment:Testing performed by : [facility], [address] [place], [place] [phone] Plt 16(C) 150 - 400 K/cumm CERNER BJ Comment: Critical Result PLT:16 Called to and read back by: KIKA ZAPIEN RN at: 06/03/2025 08:32:41 by:HT. Testing performed by: [facility], [address] [place], [place] [phone] MPV 9.8 6.8 - 10.4 fL CERNER BJ Comment:Testing performed by : [facility], [address] [place], [place] [phone] RBC 3.68(L) 4.30 - 5.80 M/cumm CERNER BJ Comment:Testing performed by : [facility], [address] [place], [place] [phone] MCV 86.0 81.3 - 96.4 fL C[facility]ER BJ Comment:Testing performed by : [facility], [address] [place], [place] [phone] MCH 30.4 27.1 - 33.3 pg CERNER BJ Comment:Testing performed by : [facility], [address] [place] [address] MCHC 35.4 32.3 - 35.7 g/dL CERNER BJ Comment:Testing performed by : [facility], [address] [place] [address] RDW CV 16.0(H) 11.1 - 14.9 % CERNER BJ Comment:Testing performed by : [facility], [address] [place], [place] [phone] NRBC abs 0.20(H) 0.00 - 0.01 K/cumm CERNER BJ Comment:Testing performed by : [facility], [address] [place], [place] [phone] Blood 06/03/2025 7:06 AM CDT 06/03/2025 7:12 AM CDT Tania Lott MD PhD LAB BLOOD ORDERABLES Fin al Result [facility] [place] [address] * (ABNORMAL) Manual Differential (06/03/2025 7:06 AM CDT) Cells Counted 200 Comment:Testing performed by : [facility], [address] [place], [place] [id number] Neutrophil abs 3.17 1.50 - 6.50 K/cumm CERNER BJ Comment:Testing performed by : [facility], [address] [place] [phone] Lymphocyte abs 0.97 0.80 - 3.30 K/cumm CERAZRA BJ Comment:Testing performed by : [facility], [address] [place] [phone] Monocyte abs 0.04(L) 0.20 - 0.80 K/cumm CERAZRA BJ Comment:Testing performed by : [facility], [address] [place] [phone] Eosinophil abs 0.04 0.00 - 0.50 K/cumm CERAZRA BJ Comment:Testing performed by : [facility], [address] [place] [phone] Basophil abs 0.00 0.00 - 0.10 K/cumm CERNER BJ Comment:Testing performed by : [facility], [address] [place], [place] [id number] Neutrophil pct 75.0 % C[facility]ER BJ Comment: Interpretive Data Percent cell count reference ranges are not reported, since discordance with absolute values may lead to misinterpretation of CBC data. Current Interpretive Data was last revised on 2018. Testing performed by: [facility], [address] [place], [place] [id number] Lymphocyte pct 23.0 % C[facility]ER [facility] Comment: Interpretive Data Percent cell count reference ranges are not reported, since discordance with absolute values may lead to misinterpretation of CBC data. Current Interpretive Data was last revised on 2018. Testing performed by: [facility], [address] [place] [phone] Monocyte pct 1.0 % CERNER BJ Comment: Interpretive Data Percent cell count reference ranges are not reported, since discordance with absolute values may lead to misinterpretation of CBC data. Current Interpretive Data was last revised on 2018. Testing performed by: [facility], [address] [place], [place] [id number] Eosinophil pct 1.0 % CERNER BJ Comment: Interpretive Data Percent cell count reference ranges are not reported, since discordance with absolute values may lead to misinterpretation of CBC data. Current Interpretive Data was last revised on 2018. Testing performed by: [facility], [address] [place] [phone] Basophil pct 0.0 % CERNER BJ Comment: Interpretive Data Percent cell count reference ranges are not reported, since discordance with absolute values may lead to misinterpretation of CBC data. Current Interpretive Data was last revised on 2018. Testing performed by: [facility], [address] [place], [place] [id number] Variant lymph pct 1.0(H) 0.0 - 0.0 % CERNER BJ Comment:Testing performed by : [facility], [address] [place] [phone] Hypersegmentation Present(A ) CERNER BJ Comment:Testing performed by : [facility], [address] [place], [place] [phone] RBC morphology NRBCs present(A ) CERNER BJ Comment:Testing performed by : [facility], [address] [place], [place] [phone] Polychromasia 1+(A) CERNER BJ Comment:Testing performed by : [facility], [address] [place] [phone] Hypochromasia 1+(A) CERAZRA BJ Comment:Testing performed by : [facility], [address] [place] [phone] Anisocytosis 2+(A) [facility]ERAZRA BJ Comment:Testing performed by : [facility], [address] [place] [phone] Poikilocytosis 1+(A) CERAZRA BJ Comment:Testing performed by : [facility], [address] [place] [phone] Microcytes 2+(A) [facility]ERAZRA BJ Comment:Testing performed by : [facility], [address] [place], [place] [phone] Macrocytes 1+(A) ANGELA [facility] Comment:Testing performed by : [facility], [address] [place] [phone] Elliptocytes 1+(A) [facility] Comment:Testing performed by : [facility], [address] [place] [phone] Target cells 1+(A) [facility] Comment:Testing performed by : [facility], [address] [place] [phone] Teardrop cells 1+(A) [facility] Comment:Testing performed by : [facility], [address] [place] [phone] Platelet estimate Decreased (A) [facility] Comment:Testing performed by : [facility], [address] [place], [place] [phone] Giant platelets Present(A ) [facility] Comment:Testing performed by : [facility], [address] [place] [phone] Blood 06/03/2025 7:06 AM CDT 06/03/2025 7:12 AM CDT us Tania Lott MD PhD LAB BLOOD ORDERABLES Fin al Result [facility] [place] [address] * Type and screen (06/03/2025 7:06 AM CDT) Benjy, indirect Negative ABO Rh B Positive ANGELA [facility] Blood 06/03/2025 7:06 AM CDT 06/03/2025 7:24 AM CDT Narrative ANGELA DUNAWAY - 06/03/2025 8:20 AM CDT Has the patient had Daratumumab or Isatuximab in the past 6 months?->Unknown Tania Lott MD PhD LAB BLOOD BANK TEST ORDE PRIMO Final Result ANGELA [facility] [place] [address] * [place] REMOVAL SUTURES/MATHEW NOT REQUIRING ANESTHESIA (06/01/2025 3:39 [...] LAB BLOOD ORDERABLES Fi nal Result ANGELA [facility] Department of Laboratories [place], [place] [id number] * Magnesium (06/01/2025 11:41 AM CDT) Magnesium 2.3 1.4 - 2.5 mg/dL Blood 06/01/2025 11:4 1 AM CDT 06/01/2025 12:11 PM CDT us Dimple Bailey MD PhD LAB BLOOD ORDERABLES Fi nal Result [facility] [place] [address] * (ABNORMAL) Comprehensive metabolic panel (06/01/2025 11:41 AM CDT) Sodium 137 135 - 145 mmol/L Potassium, pl 3.7 3.3 - 4.9 mmol/L [facility] Chloride 93(L) 97 - 110 mmol/L [facility] CO2 35(H) 22 - 32 mmol/L [facility] Anion gap 9 2 - 15 mmol/L [facility] BUN 24 6 - 25 mg/dL [facility] Creatinine 1.19 0.80 - 1.30 mg/dL [facility] Glucose 111 70 - 199 mg/dL [facility] Comment: Interpretive Data Fasting glucose >/= 126 [...] 2022. Calcium 9.3 8.5 - 10.3 mg/dL [facility] Bilirubin, total 0.8 0.1 - 1.2 mg/dL [facility] Protein, pl 6.5 6.5 - 8.5 g/dL [facility] Albumin 3.8 3.5 - 5.0 g/dL [facility] Alk phos 62 40 - 130 Units/L [facility] ALT 48 7 - 55 Units/L [facility] AST 43 10 - 50 Units/L [facility] Blood 06/01/2025 11:4 1 AM CDT 06/01/2025 12:11 PM CDT Dimple Bailey MD PhD LAB BLOOD ORDERABLES Fi nal Result Performing Organization Address City/[facility] Co de Phone Number [facility] [place] [address] * (ABNORMAL) Immature platelet fraction (06/01/2025 2:05 AM CDT) Pathologist [facility] IPF 30.7(H) 1.6 - 10.1 % Blood 06/01/2025 2:05 AM CDT 06/01/2025 2:36 AM CDT us Sandy Meraz ACCOUNT STRATEGIST LAB BLOOD ORDERABLES Final R esult Performing Organization Address [facility] Co de Phone Number [facility] [place] [address] * Potassium, whole blood (06/01/2025 2:05 AM CDT) [facility] Potassium, bld 3.6 3.3 - 4.9 mmol/L Blood 06/01/2025 2:05 AM CDT 06/01/2025 2:17 AM CDT Dimple Bailey MD PhD LAB BLOOD ORDERABLES Fi nal Result Performing Organization Address [facility] Co de Phone Number [facility] [place] [address] * eGFR (06/01/2025 2:05 AM CDT) [facility] eGFR 63 >=60 mL/min/1. 73 m2 Comment: [...] BLOOD ORDERABLES Fin al Result [facility] [place] [address] * (ABNORMAL) Differential, auto (06/01/2025 2:05 AM CDT) Neutrophil abs 2.19 1.50 - 6.50 K/cumm Imm gran abs 0.08 0.00 - 0.10 K/cumm [facility] Lymphocyte abs 0.62(L) 0.80 - 3.30 K/cumm [facility] Monocyte abs 0.06(L) 0.20 - 0.80 K/cumm [facility] Eosinophil abs 0.05 0.00 - 0.50 K/cumm [facility] Basophil abs 0.00 0.00 - 0.10 K/cumm [facility] Neutrophil pct 72.9 % [facility] Comment: Interpretive Data Percent cell count reference ranges are not reported, since discordance with absolute values may lead to misinterpretation of CBC data. Current Interpretive Data was last revised on 2018. Imm gran pct 2.7 % [facility] Comment: Interpretive Data Percent cell count reference ranges are not reported, since discordance with absolute values may lead to misinterpretation of CBC data. Current Interpretive Data was last revised on 2018. Lymphocyte pct 20.7 % [facility] Comment: Interpretive Data Percent cell count reference ranges are not reported, since discordance with absolute values may lead to misinterpretation of CBC data. Current Interpretive Data was last revised on 2018. Monocyte pct 2.0 % [facility] Comment: Interpretive Data Percent cell count reference ranges are not reported, since discordance with absolute values may lead to misinterpretation of CBC data. Current Interpretive Data was last revised on 2018. Eosinophil pct 1.7 % [facility] Comment: Interpretive Data Percent cell count reference ranges are not reported, since discordance with absolute values may lead to misinterpretation of CBC data. Current Interpretive Data was last revised on 2018. Basophil pct 0.0 % [facility] Comment: Interpretive Data Percent cell count reference ranges are not reported, since discordance with absolute values may lead to misinterpretation of CBC data. Current Interpretive Data was last revised on 2018. Blood 06/01/2025 2:05 AM CDT 06/01/2025 2:32 AM CDT us Sandy Meraz ACCOUNT STRATEGIST LAB BLOOD ORDERABLES Final R esult Performing Organization Address [facility] de Phone Number [facility] [place] [address] * (ABNORMAL) Cystatin C (06/01/2025 2:05 AM [...] last revised on 2020. Testing performed by: [facility], [place]., [address] Blood 06/01/2025 2:05 AM CDT 06/01/2025 2:46 AM CDT us Dimple Bailey MD PhD LAB BLOOD ORDERABLES Fi nal Result Performing Organization Address [facility]/ZIP Co de Phone Number [facility] [place] [address] * (ABNORMAL) CBC with auto differential (06/01/2025 2:05 AM CDT) [facility] WBC 3.00(L) 3.80 - 9.90 K/cumm Hgb 10.0(L) 13.0 - 17.5 g/dL [facility] Hct 29.1(L) 38.9 - 50.3 % [facility] Plt 28(C) 150 - 400 K/cumm [facility] Comment:Platelet count confi rmed by additional testing. Critical platelet count threshold determined by patient location: Outpatient:<50 K/cumm , Inpatient adults:<20 K/cumm , Inpatient pediatric:<25 K/cumm, BMT service:<10 K/cumm MPV Not Measured 9.1 - 12.3 fL [facility] RBC 3.31(L) 4.30 - 5.80 M/cumm [facility] MCV 87.9 81.3 - 96.4 fL [facility] MCH 30.2 27.1 - 33.3 pg [facility] MCHC 34.4 32.3 - 35.7 g/dL [facility] RDW CV 17.1(H) 11.1 - 14.9 % [facility] RDW SD 50.4(H) 35.7 - 48.1 fL [facility] NRBC abs 0.53(H) 0.00 - 0.01 K/cumm [facility] Blood 06/01/2025 2:05 AM CDT 06/01/2025 2:32 AM CDT us Sandy Meraz NP LAB BLOOD ORDERABLES Final R esult [facility] [place] [address] * Uric acid (06/01/2025 2:05 AM CDT) [facility] Uric acid 6.4 3.0 - 8.0 mg/dL Blood 06/01/2025 2:05 AM CDT 06/01/2025 2:32 AM CDT Tania Lott MD PhD LAB BLOOD ORDERABLES Fin al Result Performing Organization Address [facility] de Phone Number [facility] [place] [address] * Phosphorus (06/01/2025 2:05 AM CDT) [facility] Phosphorus, pl 3.9 2.3 - 4.5 mg/dL Blood 06/01/2025 2:05 AM CDT 06/01/2025 2:32 AM CDT Tania Lott MD PhD LAB BLOOD ORDERABLES Fin al Result Performing Organization Address [facility] de Phone Number [facility] [place] [address] * (ABNORMAL) Lactate dehydrogenase (LD) (06/01/2025 2:05 AM CDT) [facility] Lactate dehydrogenase (LDH) 387(H) 100 - 250 Units/L Blood 06/01/2025 2:05 AM CDT 06/01/2025 2:32 AM CDT Tania Lott MD PhD LAB BLOOD ORDERABLES Fin al Result Performing Organization Address [facility] [place] [address] * (ABNORMAL) Basic metabolic panel (06/01/2025 2:05 AM CDT) [facility] Sodium 134(L) 135 - 145 mmol/L Potassium, pl 3.8 3.3 - 4.9 mmol/L [facility] Chloride 88(L) 97 - 110 mmol/L [facility] CO2 36(H) 22 - 32 mmol/L [facility] Anion gap 10 2 - 15 mmol/L [facility] BUN 23 6 - 25 mg/dL [facility] Creatinine 1.31(H) 0.80 - 1.30 mg/dL [facility] Glucose 133 70 - 199 mg/dL [facility] Comment: Interpretive Data Fasting glucose >/= 126 [...] 2022. Calcium 9.7 8.5 - 10.3 mg/dL [facility] Blood 06/01/2025 2:05 AM CDT 06/01/2025 2:32 AM CDT us Tania Lott MD PhD LAB BLOOD ORDERABLES Fin al Result [facility] [place] [address] * Potassium, whole blood (05/31/2025 7:23 PM CDT) Pathologist [facility] Potassium, bld 3.4 3.3 - 4.9 mmol/L Blood 05/31/2025 7:23 PM CDT 05/31/2025 7:44 PM CDT us Dimple Bailey MD PhD LAB BLOOD ORDERABLES Fi nal Result [facility] [place] [address] * eGFR (05/31/2025 7:19 PM CDT) eGFR [...] Lobo MD LAB BLOOD ORDERABLES Final Result [facility] Department [place] [address] * Uric acid (05/31/2025 7:19 PM CDT) Uric acid 6.1 3.0 - 8.0 mg/dL Blood 05/31/2025 7:19 PM CDT 05/31/2025 7:42 PM CDT us Manolo Lobo MD LAB BLOOD ORDERABLES Final [facility] [place] [address] * Phosphorus (05/31/2025 7:19 PM CDT) Phosphorus, pl 4.0 2.3 - 4.5 mg/dL Blood 05/31/2025 7:19 PM CDT 05/31/2025 7:42 PM [address] [facility] L[facility] MD LAB BLOOD ORDERABLES Final Result Performing Organization Address City/[facility]/ZIP Co de Phone Number [facility] [place] [address] * (ABNORMAL) Basic metabolic panel (05/31/2025 7:19 PM CDT) [facility] Sodium 138 135 - 145 mmol/L Potassium, pl 3.4 3.3 - 4.9 mmol/L [facility] Chloride 89(L) 97 - 110 mmol/L [facility] CO2 40(H) 22 - 32 mmol/L [facility] Anion gap 9 2 - 15 mmol/L [facility] BUN 19 6 - 25 mg/dL [facility] Creatinine 1.26 0.80 - 1.30 mg/dL [facility] Glucose 108 70 - 199 mg/dL [facility] Comment: Interpretive Data Fasting glucose >/= 126 [...] 2022. Calcium 9.7 8.5 - 10.3 mg/dL [facility] Blood 05/31/2025 7:19 PM CDT 05/31/2025 7:42 PM CDT Manolo Lobo MD LAB BLOOD ORDERABLES Final Result Performing Organization Address [facility]/ZIP Co de Phone Number [facility] Department [place] [address] * (ABNORMAL) Potassium, whole blood (05/31/2025 1:50 PM CDT) Potassium, bld 2.9(L) 3.3 - 4.9 mmol/L Blood 05/31/2025 1:50 PM CDT 05/31/2025 1:57 PM CDT Manolo Lobo MD LAB BLOOD ORDERABLES Final Result Performing Organization Address [facility] Co de Phone Number [facility] [place] [address] * (ABNORMAL) Potassium, whole blood (05/31/2025 9:38 AM CDT) Potassium, bld 3.2(L) 3.3 - 4.9 mmol/L Blood 05/31/2025 9:38 AM CDT 05/31/2025 9:47 AM CDT Manolo Lobo MD LAB BLOOD ORDERABLES Final Result Performing Organization Address [facility] de Phone Number [facility] [place] [address] * ECG 12 lead (05/31/2025 5:38 AM CDT) Ventricular Rate EKG/Min [address] [facility] Atrial Rate [address] [facility] WI-Interval (MSEC) [address] [facility] QRS-Interval (MSEC) [address] [facility] QT-Interval (MSEC[facility] [address] [facility] QTc [address] [facility] P [place] -[address] [facility] R [place] [address] [facility] T [place] [address] [facility] Diagnosis Normal sinus rhythm Normal ECG When compared with ECG of 12-MAY-2025 01:44, Vent. rate has decreased BY 32 BPM Nonspecific T wave abnormality no longer evident in Lateral leads Confirmed by HEATH CROFT M.D ([id number]) on 05/31/2025 12:18:43 PM [facility] 05/31/2025 5:38 AM CDT 05/31/2025 12:18 PM CDT Annebarrington Chandler DO ECG ORDERABLES Final Result Performing Organization Address [facility] Co de Phone Number [facility] * (ABNORMAL) Potassium, whole blood (05/31/2025 4:39 AM CDT) Potassium, bld 2.4(C) 3.3 - 4.9 mmol/L Blood 05/31/2025 4:39 AM CDT 05/31/2025 4:56 AM CDT Manolo Lobo MD LAB BLOOD ORDERABLES Final Result Performing Organization Address [facility] Co de Phone Number [facility] [place] [address] * Critical Result Callback Chemistry (05/31/2025 4:39 AM CDT) Date Notified 20250531 Time Notified 524 [facility] TestName Potassium WB [facility] Called/Read Back Bruna [facility] Credentials RN [facility] Called By igor [facility] Blood 05/31/2025 4:39 AM CDT 05/31/2025 4:56 AM CDT Manolo Lobo MD LAB BLOOD ORDERABLES Final Result Performing Organization Address [facility] Co de Phone Number [facility] [place] [address] * (ABNORMAL) Immature platelet fraction (05/31/2025 3:26 AM CDT) IPF 30.8(H) 1.6 - 10.1 % Blood 05/31/2025 3:26 AM CDT 05/31/2025 3:45 AM CDT Sandy Poornima Kt ACCOUNT STRATEGIST LAB BLOOD ORDERABLES Final R esult Performing Organization Address City/[facility]/ZIP Co de Phone Number [facility] [place] [address] * eGFR (05/31/2025 3:26 AM CDT) eGFR [...] ORDERABLES Final Resul t Performing Organization Address City/[facility]/ZIP Co de Phone Number [facility] [place] [address] * (ABNORMAL) Differential, auto (05/31/2025 3:26 AM CDT) Pathologist [facility] Neutrophil abs 2.92 1.50 - 6.50 K/cumm Imm gran abs 0.08 0.00 - 0.10 K/cumm [facility] Lymphocyte abs 0.72(L) 0.80 - 3.30 K/cumm [facility] Monocyte abs 0.03(L) 0.20 - 0.80 K/cumm [facility] Eosinophil abs 0.18 0.00 - 0.50 K/cumm [facility] Basophil abs 0.00 0.00 - 0.10 K/cumm [facility] Neutrophil pct 74.3 % [facility] Comment: Interpretive Data Percent cell count reference ranges are not reported, since discordance with absolute values may lead to misinterpretation of CBC data. Current Interpretive Data was last revised on 2018. Imm gran pct 2.0 % [facility] Comment: Interpretive Data Percent cell count reference ranges are not reported, since discordance with absolute values may lead to misinterpretation of CBC data. Current Interpretive Data was last revised on 2018. Lymphocyte pct 18.3 % [facility] Comment: Interpretive Data Percent cell count reference ranges are not reported, since discordance with absolute values may lead to misinterpretation of CBC data. Current Interpretive Data was last revised on 2018. Monocyte pct 0.8 % [facility] Comment: Interpretive Data Percent cell count reference ranges are not reported, since discordance with absolute values may lead to misinterpretation of CBC data. Current Interpretive Data was last revised on 2018. Eosinophil pct 4.6 % [facility] Comment: Interpretive Data Percent cell count reference ranges are not reported, since discordance with absolute values may lead to misinterpretation of CBC data. Current Interpretive Data was last revised on 2018. Basophil pct 0.0 % [facility] Comment: Interpretive Data Percent cell count reference ranges are not reported, since discordance with absolute values may lead to misinterpretation of CBC data. Current Interpretive Data was last revised on 2018. Blood 05/31/2025 3:26 AM CDT 05/31/2025 3:41 AM CDT us Sandy Meraz NP LAB BLOOD ORDERABLES Final R esult [facility] [place] [address] * Critical Result Callback Chemistry (05/31/2025 3:26 AM CDT) Date Notified 20250531 Time Notified 424 [facility] TestName Potassium Plas [facility] Called/Read Back Eriberto Hampton [facility] Credentials RN [facility] Called By RG [facility] Blood 05/31/2025 3:26 AM CDT 05/31/2025 3:41 AM CDT Erika Chandler DO LAB BLOOD ORDERABLES Final Resul t [facility] [place] [address] * (ABNORMAL) Cystatin C (05/31/2025 [...] last revised on 2020. Testing performed by: [facility], [place]., [address] Blood 05/31/2025 3:26 AM CDT 05/31/2025 10:10 AM CDT Dimple Bailey MD PhD LAB BLOOD ORDERABLES Fi nal Result [facility] [place] [address] * (ABNORMAL) CBC with auto differential (05/31/2025 3:26 AM CDT) WBC 4.11 3.80 - 9.90 K/cumm Hgb 10.0(L) 13.0 - 17.5 g/dL [facility] Hct 29.0(L) 38.9 - 50.3 % [facility] Plt 41(C) 150 - 400 K/cumm [facility] Comment:Platelet count confi rmed by additional testing. Critical platelet count threshold determined by patient location: Outpatient:<50 K/cumm , Inpatient adults:<20 K/cumm , Inpatient pediatric:<25 K/cumm, BMT service:<10 K/cumm MPV Not Measured 9.1 - 12.3 fL [facility] RBC 3.30(L) 4.30 - 5.80 M/cumm [facility] MCV 87.9 81.3 - 96.4 fL [facility] MCH 30.3 27.1 - 33.3 pg [facility] MCHC 34.5 32.3 - 35.7 g/dL [facility] RDW CV 17.3(H) 11.1 - 14.9 % [facility] RDW SD 51.5(H) 35.7 - 48.1 fL [facility] NRBC abs 0.82(H) 0.00 - 0.01 K/cumm [facility] Blood 05/31/2025 3:26 AM CDT 05/31/2025 3:41 AM CDT us Sandy Meraz NP LAB BLOOD ORDERABLES Edited Result - Final [facility] [place] [address] * aPTT (05/31/2025 3:26 AM CDT) aPTT [...] BLOOD ORDERABLES Final Result Performing Organization Address [facility] [place] [address] * Protime-INR (05/31/2025 3:26 AM CDT) PT 11.1 10.2 - 13.5 sec INR 0.98 0.90 - 1.20 [facility] Comment: Interpretive data Oral anticoagulant therapeutic ranges: Venous thromboembolism prophylaxis or treatment: 2.0-3.0 CARDIOLOGY Standard range: 2.0-3.0 High-intensity range: 2.5-3.5 Refer to indication-specific guidelines for appropriate target ranges for prosthetic heart valve replacement. Current interpretive data was last revised on 2019. Blood 05/31/2025 3:26 AM CDT 05/31/2025 3:56 AM CDT [facility] Lobo MD LAB BLOOD ORDERABLES Final Result Performing Organization Address [facility] [place] [address] * Fibrinogen (05/31/2025 3:26 AM CDT) Fibrinogen 369 170 - 400 mg/dL Blood 05/31/2025 3:2 6 AM CDT 05/31/2025 3:56 AM CDT Manolo Lobo MD LAB BLOOD ORDERABLES Final Result Performing Organization Address [facility] [place] [address] * Type and screen (05/31/2025 3:26 AM CDT) ABO Rh B Positive Benjy, indirect Negative [facility] Blood 05/31/2025 3:26 AM CDT 05/31/2025 3:47 AM CDT Narrative [facility] - 05/31/2025 4:49 AM CDT Has the patient had Daratumumab or Isatuximab in the past 6 months?->Unknown Erika Chandler DO LAB BLOOD BANK TEST ORDERABLES F inal Result Performing Organization Address [facility] de Phone Number [facility] [place] [address] * Uric acid (05/31/2025 3:26 AM CDT) Uric acid 5.0 3.0 - 8.0 mg/dL Blood 05/31/2025 3:26 AM CDT 05/31/2025 3:41 AM CDT Tania Lott MD PhD LAB BLOOD ORDERABLES Fin al Result Performing Organization Address [facility] de Phone Number [facility] [place] [address] * Phosphorus (05/31/2025 3:26 AM CDT) Phosphorus, pl 4.5 2.3 - 4.5 mg/dL Blood 05/31/2025 3:26 AM CDT 05/31/2025 3:41 AM CDT Tania Lott MD PhD LAB BLOOD ORDERABLES Fin al Result Performing Organization Address [facility] [place] [address] * Magnesium (05/31/2025 3:26 AM CDT) Magnesium 2.0 1.4 - 2.5 mg/dL Blood 05/31/2025 3:2 6 AM CDT 05/31/2025 3:41 AM CDT us Manolo Lobo MD LAB BLOOD ORDERABLES Final Result Performing Organization Address City/[facility]/ZIP Co de Phone Number [facility] [place] [address] * (ABNORMAL) Lactate dehydrogenase (LD) (05/31/2025 3:26 AM CDT) Lactate dehydrogenase (LDH) 428(H) 100 - 250 Units/L Blood 05/31/2025 3:26 AM CDT 05/31/2025 3:41 AM CDT Tania Lott MD PhD LAB BLOOD ORDERABLES Fin al Result Performing Organization Address [facility] Co de Phone Number [facility] Department [place] [address] * (ABNORMAL) Comprehensive metabolic panel (05/31/2025 3:26 AM CDT) Pathologist [facility] Sodium 136 135 - 145 mmol/L Potassium, pl 2.4(C) 3.3 - 4.9 mmol/L [facility] Comment:Repeated and Verifie d Chloride 87(L) 97 - 110 mmol/L [facility] Comment:Repeated and Verifie d CO2 38(H) 22 - 32 mmol/L [facility] Anion gap 11 2 - 15 mmol/L [facility] BUN 19 6 - 25 mg/dL [facility] Creatinine 1.20 0.80 - 1.30 mg/dL [facility] Glucose 112 70 - 199 mg/dL [facility] Comment: Interpretive Data Fasting glucose >/= 126 [...] 2022. Calcium 9.6 8.5 - 10.3 mg/dL [facility] Bilirubin, total 1.0 0.1 - 1.2 mg/dL [facility] Protein, pl 7.2 6.5 - 8.5 g/dL [facility] Albumin 4.1 3.5 - 5.0 g/dL [facility] Alk phos 74 40 - 130 Units/L [facility] ALT 54 7 - 55 Units/L [facility] AST 48 10 - 50 Units/L [facility] Blood 05/31/2025 3:26 AM CDT 05/31/2025 3:41 AM CDT Narrative [facility] - 05/31/2025 4:22 AM CDT Saturday and only. Morning draw. Erika Chandler DO LAB BLOOD ORDERABLES Final Resul t [facility] [place] [address] * eGFR (05/30/2025 5:06 PM CDT) eGFR [...] BLOOD ORDERABLES Final Result Performing Organization Address [facility] Co de Phone Number [facility] [place] [address] * Uric acid (05/30/2025 5:06 PM CDT) Pathologist [facility] Uric acid 3.9 3.0 - 8.0 mg/dL Blood 05/30/2025 5:06 PM CDT 05/30/2025 5:28 PM CDT Manolo Lobo MD LAB BLOOD ORDERABLES Final Result Performing Organization Address [facility] Co de Phone Number [facility] [place] [address] * Phosphorus (05/30/2025 5:06 PM CDT) Pathologist [facility] Phosphorus, pl 3.6 2.3 - 4.5 mg/dL Blood 05/30/2025 5:06 PM CDT 05/30/2025 5:28 PM CDT Manolo Lobo MD LAB BLOOD ORDERABLES Final Result Performing Organization Address [facility] [place] [address] * Basic metabolic panel (05/30/2025 5:06 PM CDT) Sodium 139 135 - 145 mmol/L Potassium, pl 3.8 3.3 - 4.9 mmol/L [facility] Comment:Hemolyzed; Potassium value may be falsely elevated by as much as 0.3-0.5 mmol/L. Suggest redraw and reanalysis. Chloride 99 97 - 110 mmol/L [facility] CO2 32 22 - 32 mmol/L [facility] Anion gap 8 2 - 15 mmol/L [facility] BUN 19 6 - 25 mg/dL [facility] Creatinine 1.19 0.80 - 1.30 mg/dL [facility] Glucose 98 70 - 199 mg/dL [facility] Comment: Interpretive Data Fasting glucose >/= 126 [...] 2022. Calcium 9.1 8.5 - 10.3 mg/dL [facility] Blood 05/30/2025 5:06 PM CDT 05/30/2025 5:28 PM CDT us Manolo Lobo MD LAB BLOOD ORDERABLES Final Result Performing Organization Address City/[facility]/ZIP Co de Phone Number [facility] [place] [address] * (ABNORMAL) Immature platelet fraction (05/30/2025 4:28 AM CDT) [facility] IPF 31.5(H) 1.6 - 10.1 % Blood 05/30/2025 4:28 AM CDT 05/30/2025 4:55 AM CDT us Sandy Meraz NP LAB BLOOD ORDERABLES Final R esult [facility] [place] [address] * (ABNORMAL) Blood smear review (05/30/2025 4:28 AM CDT) Platelet estimate Decreased( A) Blood 05/30/2025 4:28 AM CDT 05/30/2025 4:55 AM CDT us Sandy Meraz ACCOUNT STRATEGIST LAB BLOOD ORDERABLES Final R esult Performing Organization Address [facility] Co de Phone Number [facility] [place] [address] * eGFR (05/30/2025 4:28 AM CDT) Pathologist [facility] eGFR 86 >=60 mL/min/1. 73 m2 Comment: [...] ORDERABLES Fin al Result Performing Organization Address [facility]/ZIP Co de Phone Number [facility] [place] [address] * (ABNORMAL) Differential, auto (05/30/2025 4:28 AM CDT) Pathologist [facility] Neutrophil abs 1.47(L) 1.50 - 6.50 K/cumm Imm gran abs 0.02 0.00 - 0.10 K/cumm [facility] Lymphocyte abs 0.77(L) 0.80 - 3.30 K/cumm [facility] Monocyte abs 0.05(L) 0.20 - 0.80 K/cumm [facility] Eosinophil abs 0.23 0.00 - 0.50 K/cumm [facility] Basophil abs 0.00 0.00 - 0.10 K/cumm [facility] Neutrophil pct 57.8 % [facility] Comment: Interpretive Data Percent cell count reference ranges are not reported, since discordance with absolute values may lead to misinterpretation of CBC data. Current Interpretive Data was last revised on 2018. Imm gran pct 0.8 % [facility] Comment: Interpretive Data Percent cell count reference ranges are not reported, since discordance with absolute values may lead to misinterpretation of CBC data. Current Interpretive Data was last revised on 2018. Lymphocyte pct 30.3 % [facility] Comment: Interpretive Data Percent cell count reference ranges are not reported, since discordance with absolute values may lead to misinterpretation of CBC data. Current Interpretive Data was last revised on 2018. Monocyte pct 2.0 % [facility] Comment: Interpretive Data Percent cell count reference ranges are not reported, since discordance with absolute values may lead to misinterpretation of CBC data. Current Interpretive Data was last revised on 2018. Eosinophil pct 9.1 % [facility] Comment: Interpretive Data Percent cell count reference ranges are not reported, since discordance with absolute values may lead to misinterpretation of CBC data. Current Interpretive Data was last revised on 2018. Basophil pct 0.0 % [facility] Comment: Interpretive Data Percent cell count reference ranges are not reported, since discordance with absolute values may lead to misinterpretation of CBC data. Current Interpretive Data was last revised on 2018. Blood 05/30/2025 4:28 AM CDT 05/30/2025 4:49 AM CDT Sandy Meraz NP LAB BLOOD ORDERABLES Final R esult [facility] [place] [address] * Cystatin C (05/30/2025 4:28 AM CDT) Pathologist [facility] Cystatin C 1.12 0.60 - 1.20 mg/L Comment: Interpretive Data Cystatin C concentrations vary widely in the first month of life, particularly in pre-term infants. Concentrations gradually diminish to adult levels by 1 year of life. Concentrations tend to rise with diminishing renal function in individuals greater than 60 years of age. Current Interpretive Data was last revised on 2020. Testing performed by: [facility], [place]., [address] Blood 05/30/2025 4:28 AM CDT 05/30/2025 5:49 AM CDT Dimple Bailey MD PhD LAB BLOOD ORDERABLES Fi nal Result Performing Organization Address [facility] Co de Phone Number [facility] [place] [address] * (ABNORMAL) CBC with auto differential (05/30/2025 4:28 AM CDT) Pathologist [facility] WBC 2.54(L) 3.80 - 9.90 K/cumm Hgb 8.6(L) 13.0 - 17.5 g/dL [facility] Hct 25.4(L) 38.9 - 50.3 % [facility] Plt 44(C) 150 - 400 K/cumm [facility] Comment:Platelet count confi rmed by additional testing. Critical platelet count threshold determined by patient location: Outpatient:<50 K/cumm , Inpatient adults:<20 K/cumm , Inpatient pediatric:<25 K/cumm, BMT service:<10 K/cumm MPV Not Measured 9.1 - 12.3 fL [facility] RBC 2.83(L) 4.30 - 5.80 M/cumm [facility] MCV 89.8 81.3 - 96.4 fL [facility] MCH 30.4 27.1 - 33.3 pg [facility] MCHC 33.9 32.3 - 35.7 g/dL [facility] RDW CV 17.4(H) 11.1 - 14.9 % [facility] RDW SD 53.6(H) 35.7 - 48.1 fL [facility] NRBC abs 0.77(H) 0.00 - 0.01 K/cumm [facility] Blood 05/30/2025 4:28 AM CDT 05/30/2025 4:49 AM CDT Sandy Meraz ACCOUNT STRATEGIST LAB BLOOD ORDERABLES Final R esult Performing Organization Address City/[facility] Co de Phone Number [facility] [place] [address] * Uric acid (05/30/2025 4:28 AM CDT) Uric acid 4.4 3.0 - 8.0 mg/dL Blood 05/30/2025 4:28 AM CDT 05/30/2025 4:42 AM CDT Tania Lott MD PhD LAB BLOOD ORDERABLES Fin al Result Performing Organization Address City/[facility] Co de Phone Number [facility] [place] [address] * Phosphorus (05/30/2025 4:28 AM CDT) Phosphorus, pl 3.4 2.3 - 4.5 mg/dL Blood 05/30/2025 4:28 AM CDT 05/30/2025 4:42 AM CDT Tania Lott MD PhD LAB BLOOD ORDERABLES Fin al Result Performing Organization Address City/[facility]/ZIP Co de Phone Number [facility] [place] [address] * (ABNORMAL) Lactate dehydrogenase (LD) (05/30/2025 4:28 AM CDT) Pathologist [facility] Lactate dehydrogenase (LDH) 395(H) 100 - 250 Units/L Blood 05/30/2025 4:28 AM CDT 05/30/2025 4:42 AM CDT Tania Lott MD PhD LAB BLOOD ORDERABLES Fin al Result Performing Organization Address City/[facility]/ZIP Co de Phone Number [facility] [place] [address] * (ABNORMAL) Creatine kinase (CK), total (05/30/2025 4:28 AM CDT) Pathologist [facility] CK 35(L) 40 - 300 Units/L Blood 05/30/2025 4:28 AM CDT 05/30/2025 4:42 AM CDT Dimple Bailey MD PhD LAB BLOOD ORDERABLES Fi nal Result Performing Organization Address [facility] de Phone Number [facility] [place] [address] * (ABNORMAL) Basic metabolic panel (05/30/2025 4:28 AM CDT) [facility] Sodium 138 135 - 145 mmol/L Potassium, pl 3.4 3.3 - 4.9 mmol/L [facility] Chloride 97 97 - 110 mmol/L [facility] CO2 34(H) 22 - 32 mmol/L [facility] Anion gap 7 2 - 15 mmol/L [facility] BUN 20 6 - 25 mg/dL [facility] Creatinine 1.01 0.80 - 1.30 mg/dL [facility] Glucose 111 70 - 199 mg/dL [facility] Comment: Interpretive Data Fasting glucose >/= 126 [...] 2022. Calcium 8.7 8.5 - 10.3 mg/dL [facility] Blood 05/30/2025 4:28 AM CDT 05/30/2025 4:42 AM CDT us Tania Lott MD PhD LAB BLOOD ORDERABLES Fin al Result [facility] [place] [address] * eGFR (05/29/2025 5:01 PM CDT) eGFR [...] BLOOD ORDERABLES Final Result Performing Organization Address City/[facility]/ZIP Co de Phone Number [facility] [place] [address] * Uric acid (05/29/2025 5:01 PM CDT) [facility] Uric acid 4.5 3.0 - 8.0 mg/dL Blood 05/29/2025 5:01 PM CDT 05/29/2025 5:16 PM CDT Manolo Lobo MD LAB BLOOD ORDERABLES Final Result Performing Organization Address [facility] Co de Phone Number [facility] [place] [address] * Phosphorus (05/29/2025 5:01 PM CDT) [facility] Phosphorus, pl 3.3 2.3 - 4.5 mg/dL Blood 05/29/2025 5:01 PM CDT 05/29/2025 5:16 PM CDT Manolo Lobo MD LAB BLOOD ORDERABLES Final Result Performing Organization Address [facility] [place] [address] * (ABNORMAL) Basic metabolic panel (05/29/2025 5:01 PM CDT) [facility] Sodium 139 135 - 145 mmol/L Potassium, pl 3.3 3.3 - 4.9 mmol/L [facility] Chloride 98 97 - 110 mmol/L [facility] CO2 33(H) 22 - 32 mmol/L [facility] Anion gap 8 2 - 15 mmol/L [facility] BUN 19 6 - 25 mg/dL [facility] Creatinine 1.00 0.80 - 1.30 mg/dL [facility] Glucose 150 70 - 199 mg/dL [facility] Comment: Interpretive Data Fasting glucose >/= 126 [...] Calcium 9.0 8.5 - 10.3 mg/dL [facility] Blood 05/29/2025 5:01 PM CDT 05/29/2025 5:16 PM CDT us Manolo Lobo MD LAB BLOOD ORDERABLES Final Result [facility] [place] [address] * eGFR (05/29/2025 4:13 AM CDT) eGFR [...] ORDERABLES Fin al Result Performing Organization Address [facility] Co de Phone Number [facility] [place] [address] * Cystatin C (05/29/2025 4:13 AM CDT) [facility] Cystatin C 1.15 0.60 - 1.20 mg/L Comment: Interpretive Data Cystatin C concentrations vary widely in the first month of life, particularly in pre-term infants. Concentrations gradually diminish to adult levels by 1 year of life. Concentrations tend to rise with diminishing renal function in individuals greater than 60 years of age. Current Interpretive Data was last revised on 2020. Testing performed by: [facility], [facility], [place]., [address] Blood 05/29/2025 4:13 AM CDT 05/29/2025 4:40 AM CDT us Dimple Bailey MD PhD LAB BLOOD ORDERABLES Fi nal Result Performing Organization Address [facility] Co de Phone Number [facility] [place] [address] * (ABNORMAL) CBC with auto differential (05/29/2025 4:13 AM CDT) [facility] WBC 2.30(L) 3.80 - 9.90 K/cumm Hgb 8.9(L) 13.0 - 17.5 g/dL [facility] Hct 26.5(L) 38.9 - 50.3 % [facility] Plt 52(L) 150 - 400 K/cumm [facility] MPV Not Measured 9.1 - 12.3 fL [facility] RBC 2.93(L) 4.30 - 5.80 M/cumm [facility] MCV 90.4 81.3 - 96.4 fL [facility] MCH 30.4 27.1 - 33.3 pg [facility] MCHC 33.6 32.3 - 35.7 g/dL [facility] RDW CV 17.5(H) 11.1 - 14.9 % [facility] RDW SD 54.5(H) 35.7 - 48.1 fL [facility] NRBC abs 0.87(H) 0.00 - 0.01 K/cumm [facility] Blood 05/29/2025 4:13 AM CDT 05/29/2025 4:24 AM CDT us Sandy Meraz ACCOUNT STRATEGIST LAB BLOOD ORDERABLES Final R esult [facility] [place] [address] * (ABNORMAL) Manual Differential (05/29/2025 4:13 AM CDT) Differential Manual Cells Counted 112 [facility] Neutrophil abs 1.66 1.50 - 6.50 K/cumm [facility] Imm gran abs 0.02 0.00 - 0.10 K/cumm [facility] Lymphocyte abs 0.51(L) 0.80 - 3.30 K/cumm [facility] Monocyte abs 0.02(L) 0.20 - 0.80 K/cumm [facility] Eosinophil abs 0.08 0.00 - 0.50 K/cumm [facility] Neutrophil pct 72.3 % [facility] Comment: Interpretive Data Percent cell count reference ranges are not reported, since discordance with absolute values may lead to misinterpretation of CBC data. Current Interpretive Data was last revised on 2018. Lymphocyte pct 22.3 % [facility] Comment: Interpretive Data Percent cell count reference ranges are not reported, since discordance with absolute values may lead to misinterpretation of CBC data. Current Interpretive Data was last revised on 2018. Monocyte pct 0.9 % [facility] Comment: Interpretive Data Percent cell count reference ranges are not reported, since discordance with absolute values may lead to misinterpretation of CBC data. Current Interpretive Data was last revised on 2018. Eosinophil pct 3.6 % [facility] Comment: Interpretive Data Percent cell count reference ranges are not reported, since discordance with absolute values may lead to misinterpretation of CBC data. Current Interpretive Data was last revised on 2018. Metamyelocyte pct 0.9(H) 0.0 - 0.0 % [facility] RBC morphology Present(A) [facility] Anisocytosis Slight(A) [facility] Macrocytes 3-7/HPF(A) [facility] Platelet estimate Decreased( A) [facility] Platelet clumping Present(A) [facility] Blood 05/29/2025 4:13 AM CDT 05/29/2025 4:29 AM CDT Sandy Meraz ACCOUNT STRATEGIST LAB BLOOD ORDERABLES Final R esult Performing Organization Address [facility] de Phone Number [facility] [place] [address] * Uric acid (05/29/2025 4:13 AM CDT) Uric acid 4.6 3.0 - 8.0 mg/dL Blood 05/29/2025 4:13 AM CDT 05/29/2025 4:24 AM CDT Tania Lott MD PhD LAB BLOOD ORDERABLES Fin al Result Performing Organization Address [facility] de Phone Number [facility] [place] [address] * Phosphorus (05/29/2025 4:13 AM CDT) Phosphorus, pl 3.1 2.3 - 4.5 mg/dL Blood 05/29/2025 4:13 AM CDT 05/29/2025 4:24 AM CDT Tania Lott MD PhD LAB BLOOD ORDERABLES Fin al Result Performing Organization Address [facility]/ZIP Co de Phone Number [facility] [place] [address] * Magnesium (05/29/2025 4:13 AM CDT) [facility] Magnesium 2.3 1.4 - 2.5 mg/dL Blood 05/29/2025 4:13 AM CDT 05/29/2025 4:24 AM CDT us Sandy Meraz ACCOUNT STRATEGIST LAB BLOOD ORDERABLES Final R esult Performing Organization Address [facility] de Phone Number [facility] [place] [address] * (ABNORMAL) Lactate dehydrogenase (LD) (05/29/2025 4:13 AM CDT) [facility] Lactate dehydrogenase (LDH) 419(H) 100 - 250 Units/L Blood 05/29/2025 4:13 AM CDT 05/29/2025 4:24 AM CDT us Tania Lott MD PhD LAB BLOOD ORDERABLES Fin al Result Performing Organization Address [facility] de Phone Number [facility] [place] [address] * (ABNORMAL) Basic metabolic panel (05/29/2025 4:13 AM CDT) [facility] Sodium 137 135 - 145 mmol/L Potassium, pl 3.6 3.3 - 4.9 mmol/L [facility] Chloride 96(L) 97 - 110 mmol/L [facility] CO2 35(H) 22 - 32 mmol/L [facility] Anion gap 6 2 - 15 mmol/L [facility] BUN 17 6 - 25 mg/dL [facility] Creatinine 0.96 0.80 - 1.30 mg/dL [facility] Glucose 106 70 - 199 mg/dL [facility] Comment: Interpretive Data Fasting glucose >/= 126 [...] 2022. Calcium 8.9 8.5 - 10.3 mg/dL [facility] Blood 05/29/2025 4:13 AM CDT 05/29/2025 4:24 AM CDT us Tania Lott MD PhD LAB BLOOD ORDERABLES Fin al Result [facility] [place] [address] * eGFR (05/28/2025 4:55 PM CDT) eGFR [...] ORDERABLES Fi nal Result Performing Organization Address City/[facility] Co de Phone Number [facility] [place] [address] * Uric acid (05/28/2025 4:55 PM CDT) Uric acid 4.3 3.0 - 8.0 mg/dL Blood 05/28/2025 4:55 PM CDT 05/28/2025 5:15 PM CDT Dimple Bailey MD PhD LAB BLOOD ORDERABLES Fi nal Result Performing Organization Address [facility] Co de Phone Number [facility] [place] [address] * Phosphorus (05/28/2025 4:55 PM CDT) Pathologist [facility] Phosphorus, pl 3.5 2.3 - 4.5 mg/dL Blood 05/28/2025 4:55 PM CDT 05/28/2025 5:15 PM CDT Dimple Bailey MD PhD LAB BLOOD ORDERABLES Fi nal Result Performing Organization Address [facility] Co de Phone Number [facility] [place] [address] * Basic metabolic panel (05/28/2025 4:55 PM CDT) Sodium 138 135 - 145 mmol/L Potassium, pl 3.9 3.3 - 4.9 mmol/L [facility] Chloride 98 97 - 110 mmol/L [facility] CO2 32 22 - 32 mmol/L [facility] Anion gap 8 2 - 15 mmol/L [facility] BUN 17 6 - 25 mg/dL [facility] Creatinine 0.94 0.80 - 1.30 mg/dL [facility] Glucose 105 70 - 199 mg/dL [facility] Comment: Interpretive Data Fasting glucose >/= 126 [...] 2022. Calcium 9.0 8.5 - 10.3 mg/dL [facility] Blood 05/28/2025 4:55 PM CDT 05/28/2025 5:15 PM CDT us Dimple Bailey MD PhD LAB BLOOD ORDERABLES Fi nal Result [facility] [place] [address] * eGFR (05/28/2025 4:03 AM CDT) eGFR [...] ORDERABLES Fi nal Result Performing Organization Address [facility] Co de Phone Number [facility] [place] [address] * Cystatin C (05/28/2025 4:03 AM CDT) [facility] Cystatin C 1.14 0.60 - 1.20 mg/L Comment: Interpretive Data Cystatin C concentrations vary widely in the first month of life, particularly in pre-term infants. Concentrations gradually diminish to adult levels by 1 year of life. Concentrations tend to rise with diminishing renal function in individuals greater than 60 years of age. Current Interpretive Data was last revised on 2020. Testing performed by: [place]., [address] Blood 05/28/2025 4:0 3 AM CDT 05/28/2025 5:22 AM CDT Dimple Bailey MD PhD LAB BLOOD ORDERABLES Fi nal Result Performing Organization Address City/[facility] Co de Phone Number [facility] Department [place] [address] * (ABNORMAL) CBC with auto differential (05/28/2025 4:03 AM CDT) Pathologist [facility] WBC 2.01(L) 3.80 - 9.90 K/cumm Hgb 8.5(L) 13.0 - 17.5 g/dL [facility] Hct 26.4(L) 38.9 - 50.3 % [facility] Plt 50(L) 150 - 400 K/cumm [facility] MPV Not Measured 9.1 - 12.3 fL [facility] RBC 2.86(L) 4.30 - 5.80 M/cumm [facility] MCV 92.3 81.3 - 96.4 fL [facility] MCH 29.7 27.1 - 33.3 pg [facility] MCHC 32.2(L) 32.3 - 35.7 g/dL [facility] RDW CV 17.5(H) 11.1 - 14.9 % [facility] RDW SD 55.5(H) 35.7 - 48.1 fL [facility] NRBC abs 1.40(H) 0.00 - 0.01 K/cumm [facility] Blood 05/28/2025 4:03 AM CDT 05/28/2025 4:20 AM CDT Sandy Meraz NP LAB BLOOD ORDERABLES Final R esult [facility] [place] [address] * (ABNORMAL) Manual Differential (05/28/2025 4:03 AM CDT) Differential Manual Cells Counted 114 [facility] Neutrophil abs 1.25(L) 1.50 - 6.50 K/cumm [facility] Lymphocyte abs 0.69(L) 0.80 - 3.30 K/cumm [facility] Monocyte abs 0.02(L) 0.20 - 0.80 K/cumm [facility] Eosinophil abs 0.05 0.00 - 0.50 K/cumm [facility] Neutrophil pct 62.3 % [facility] Comment: Interpretive Data Percent cell count reference ranges are not reported, since discordance with absolute values may lead to misinterpretation of CBC data. Current Interpretive Data was last revised on 2018. Lymphocyte pct 34.2 % [facility] Comment: Interpretive Data Percent cell count reference ranges are not reported, since discordance with absolute values may lead to misinterpretation of CBC data. Current Interpretive Data was last revised on 2018. Monocyte pct 0.9 % [facility] Comment: Interpretive Data Percent cell count reference ranges are not reported, since discordance with absolute values may lead to misinterpretation of CBC data. Current Interpretive Data was last revised on 2018. Eosinophil pct 2.6 % [facility] Comment: Interpretive Data Percent cell count reference [...] 05/28/2025 4:23 AM CDT us Sandy Meraz ACCOUNT STRATEGIST LAB BLOOD ORDERABLES Final R esult Performing Organization Address City/[facility]/ZIP Co de Phone Number [facility] [place] [address] * Uric acid (05/28/2025 4:03 AM CDT) Uric acid 4.3 3.0 - 8.0 mg/dL Blood 05/28/2025 4:03 AM CDT 05/28/2025 4:20 AM CDT us Dimple Bailey MD PhD LAB BLOOD ORDERABLES Fi nal Result [facility] [place] [address] * Uric acid (05/28/2025 4:03 AM CDT) Uric acid 4.3 3.0 - 8.0 mg/dL Blood 05/28/2025 4:03 AM CDT 05/28/2025 4:20 AM CDT us Tania Lott MD PhD LAB BLOOD ORDERABLES Fin al Result Performing Organization Address City/[facility] Co de Phone Number [facility] [place] [address] * Phosphorus (05/28/2025 4:03 AM CDT) Phosphorus, pl 3.8 2.3 - 4.5 mg/dL Blood 05/28/2025 4:03 AM CDT 05/28/2025 4:20 AM CDT us Tania Lott MD PhD LAB BLOOD ORDERABLES Fin al Result Performing Organization Address [facility] de Phone Number [facility] [place] [address] * Magnesium (05/28/2025 4:03 AM CDT) Magnesium 2.2 1.4 - 2.5 mg/dL Blood 05/28/2025 4:03 AM CDT 05/28/2025 4:20 AM CDT us Dimple Bailey MD PhD LAB BLOOD ORDERABLES Fi nal Result Performing Organization Address City/[facility] Co de Phone Number [facility] [place] [address] * Magnesium (05/28/2025 4:03 AM CDT) Magnesium 2.2 1.4 - 2.5 mg/dL Blood 05/28/2025 4:03 AM CDT 05/28/2025 4:20 AM CDT us Sandy Meraz ACCOUNT STRATEGIST LAB BLOOD ORDERABLES Final R esult Performing Organization Address City/[facility] Co de Phone Number [facility] [place] [address] * (ABNORMAL) Lactate dehydrogenase (LD) (05/28/2025 4:03 AM CDT) Pathologist [facility] Lactate dehydrogenase (LDH) 457(H) 100 - 250 Units/L Blood 05/28/2025 4:03 AM CDT 05/28/2025 4:20 AM CDT Tania Lott MD PhD LAB BLOOD ORDERABLES Fin al Result [facility] [place] [address] * (ABNORMAL) Comprehensive metabolic panel (05/28/2025 4:03 AM CDT) Pathologist [facility] Sodium 137 135 - 145 mmol/L Potassium, pl 3.8 3.3 - 4.9 mmol/L [facility] Chloride 99 97 - 110 mmol/L [facility] CO2 30 22 - 32 mmol/L [facility] Anion gap 8 2 - 15 mmol/L [facility] BUN 17 6 - 25 mg/dL [facility] Creatinine 0.91 0.80 - 1.30 mg/dL [facility] Glucose 148 70 - 199 mg/dL [facility] Comment: Interpretive Data Fasting glucose >/= 126 [...] 2022. Calcium 9.0 8.5 - 10.3 mg/dL [facility] Bilirubin, total 0.7 0.1 - 1.2 mg/dL [facility] Protein, pl 6.3(L) 6.5 - 8.5 g/dL [facility] Albumin 3.4(L) 3.5 - 5.0 g/dL [facility] Alk phos 58 40 - 130 Units/L [facility] ALT 50 7 - 55 Units/L [facility] AST 45 10 - 50 Units/L [facility] Blood 05/28/2025 4:03 AM CDT 05/28/2025 4:20 AM CDT us Dimple Bailey MD PhD LAB BLOOD ORDERABLES Fi nal Result [facility] [place] [address] * eGFR (05/27/2025 5:20 PM CDT) eGFR [...] BLOOD ORDERABLES Ed ited Result - Final [facility] [place] [address] * Uric acid (05/27/2025 5:20 PM CDT) Uric acid 3.6 3.0 - 8.0 mg/dL Comment:Collection date/time has been modified to: 17:20:00. Previous collection date/time: 20:00:00. Blood 05/27/2025 5:20 PM CDT 05/27/2025 5:28 PM CDT Dimple Bailey MD PhD LAB BLOOD ORDERABLES Ed ited Result - Final Performing Organization Address [facility] Co de Phone Number [facility] [address] * Phosphorus (05/27/2025 5:20 PM CDT) Phosphorus, pl 3.2 2.3 - 4.5 mg/dL Comment:Collection date/time has been modified to: 17:20:00. Previous collection date/time: 20:00:00. Blood 05/27/2025 5:20 PM CDT 05/27/2025 5:28 PM CDT Dimple Bailey MD PhD LAB BLOOD ORDERABLES Ed ited Result - Final Performing Organization Address [facility] Co de Phone Number [facility] [place] [address] * (ABNORMAL) Basic metabolic panel (05/27/2025 5:20 PM CDT) Sodium 140 135 - 145 mmol/L Comment:Collection date/time has been modified to: 17:20:00. Previous collection date/time: 20:00:00. Potassium, pl 3.4 3.3 - 4.9 mmol/L [facility] Comment:Collection date/time has been modified to: 17:20:00. Previous collection date/time: 20:00:00. Chloride 106 97 - 110 mmol/L [facility] Comment:Collection date/time has been modified to: 17:20:00. Previous collection date/time: 20:00:00. CO2 28 22 - 32 mmol/L [facility] Comment:Collection date/time has been modified to: 17:20:00. Previous collection date/time: 20:00:00. Anion gap 6 2 - 15 mmol/L [facility] Comment:Collection date/time has been modified to: 17:20:00. Previous collection date/time: 20:00:00. BUN 13 6 - 25 mg/dL [facility] Comment:Collection date/time has been modified to: 17:20:00. Previous collection date/time: 20:00:00. Creatinine 0.74(L) 0.80 - 1.30 mg/dL [facility] Comment:Collection date/time has been modified to: 17:20:00. Previous collection date/time: 20:00:00. Glucose 104 70 - 199 mg/dL [facility] Comment: Collection date/time has been modified to: [...] 2022. Calcium 7.7(L) 8.5 - 10.3 mg/dL [facility] Comment:Collection date/time has been modified to: 17:20:00. Previous collection date/time: 20:00:00. Blood 05/27/2025 5:20 PM CDT 05/27/2025 5:28 PM CDT Dimple Bailey MD PhD LAB BLOOD ORDERABLES Ed ited Result - Final Performing Organization Address [facility] de Phone Number [facility] [place] [address] * Cystatin C (05/27/2025 4:37 PM CDT) [...] last revised on 2020. Testing performed by: [facility], [place]., [address] Blood 05/27/2025 4:37 PM CDT 05/27/2025 8:16 PM CDT us Notinfile Unknown LAB BLOOD ORDERABLES Final Res ult Performing Organization Address [facility] Co de Phone Number [facility] [place] [address] * US Kidney Complete (05/27/2025 10:40 AM [...] Unknown LAB BLOOD ORDERABLES Final Res ult [facility] [place] [address] * (ABNORMAL) Differential, auto (05/27/2025 3:20 AM [...] 2018. Imm gran pct 0.6 % [facility] Comment: Interpretive Data Percent cell count reference ranges are not reported, since discordance with absolute values may lead to misinterpretation of CBC data. Current Interpretive Data was last revised on 2018. Lymphocyte pct 45.9 % [facility] Comment: Interpretive Data Percent cell count reference [...] ORDERABLES Final Res ult Performing Organization Address City/[facility]/ZIP Co de Phone Number [facility] [place] [address] * (ABNORMAL) CBC with auto differential (05/27/2025 3:20 AM CDT) [facility] WBC 1.59(L) 3.80 - 9.90 K/cumm Hgb 8.1(L) 13.0 - 17.5 g/dL [facility] Hct 24.0(L) 38.9 - 50.3 % [facility] Plt 46(C) 150 - 400 K/cumm [facility] Comment:This result has been called to ravinder pappas rn by [id number] on 05/27/2025 04:09:52, and has been read back. MPV Not Measured 9.1 - 12.3 fL [facility] RBC 2.65(L) 4.30 - 5.80 M/cumm [facility] MCV 90.6 81.3 - 96.4 fL [facility] MCH 30.6 27.1 - 33.3 pg [facility] MCHC 33.8 32.3 - 35.7 g/dL [facility] RDW CV 17.3(H) 11.1 - 14.9 % [facility] RDW SD 53.6(H) 35.7 - 48.1 fL [facility] NRBC abs 2.21(H) 0.00 - 0.01 K/cumm [facility] Blood 05/27/2025 3:20 AM CDT 05/27/2025 3:45 AM CDT us Notinfile Unknown LAB BLOOD ORDERABLES Final Res ult Performing Organization Address City/[facility]/ZIP Co de Phone Number [facility] [place] [address] * Calcium, ionized, whole blood (05/27/2025 2:57 AM CDT) Ca, ionized, bld 4.65 4.50 - 5.10 mg/dL Blood 05/27/2025 2:5 7 AM CDT 05/27/2025 3:04 AM CDT Dimple Bailey MD PhD LAB BLOOD ORDERABLES Fi nal Result Performing Organization Address [facility] Co de Phone Number [facility] [place] [address] * eGFR (05/27/2025 2:57 AM CDT) eGFR [...] ORDERABLES Final Resul t Performing Organization Address [facility] Co de Phone Number [facility] [place] [address] * (ABNORMAL) CBC with auto differential (05/27/2025 2:57 AM CDT) [facility] WBC 2.37(L) 3.80 - 9.90 K/cumm Hgb 5.5(C) 13.0 - 17.5 g/dL [facility] Comment:This result has been called to tiffanie wu rn by [email or web address] on 05/27/2025 03:15:01, and has been read back. Hct 16.1(L) 38.9 - 50.3 % [facility] Plt 66(L) 150 - 400 K/cumm [facility] MPV 14.5(H) 9.1 - 12.3 fL [facility] RBC 1.78(L) 4.30 - 5.80 M/cumm [facility] MCV 90.4 81.3 - 96.4 fL [facility] MCH 30.9 27.1 - 33.3 pg [facility] MCHC 34.2 32.3 - 35.7 g/dL [facility] RDW CV 17.3(H) 11.1 - 14.9 % [facility] RDW SD 54.4(H) 35.7 - 48.1 fL [facility] NRBC abs 1.72(H) 0.00 - 0.01 K/cumm [facility] Morphologic Screen Results confirmed by manual morphology review. [facility] Blood 05/27/2025 2:57 AM CDT 05/27/2025 3:04 AM CDT us Sandy Meraz NP LAB BLOOD ORDERABLES Edited Result - Final [facility] [place] [address] * (ABNORMAL) Manual Differential (05/27/2025 2:57 AM CDT) [facility] Differential Manual Cells Counted 114 [facility] Neutrophil abs 1.31(L) 1.50 - 6.50 K/cumm [facility] Lymphocyte abs 0.94 0.80 - 3.30 K/cumm [facility] Eosinophil abs 0.08 0.00 - 0.50 K/cumm [facility] Neutrophil pct 55.2 % [facility] Comment: Interpretive Data Percent cell count reference ranges are not reported, since discordance with absolute values may lead to misinterpretation of CBC data. Current Interpretive Data was last revised on 2018. Lymphocyte pct 39.5 % [facility] Comment: Interpretive Data Percent cell count reference ranges are not reported, since discordance with absolute values may lead to misinterpretation of CBC data. Current Interpretive Data was last revised on 2018. Eosinophil pct 3.5 % [facility] Comment: Interpretive Data Percent cell count reference ranges are not reported, since discordance with absolute values may lead to misinterpretation of CBC data. Current Interpretive Data was last revised on 2018. Blast pct 1.8(C) 0.0 - 0.0 [facility] Comment:Critical value greene d within last 30 days. Blood 05/27/2025 2:57 AM CDT 05/27/2025 3:06 AM CDT Sandy Meraz ACCOUNT STRATEGIST LAB BLOOD ORDERABLES Final R esult Performing Organization Address City/[facility]/ZIP Co de Phone Number [facility] Department [place] [address] * Type and screen (05/27/2025 2:57 AM CDT) Benjy, indirect Negative ABO Rh B Positive [facility] Blood 05/27/2025 2:57 AM CDT 05/27/2025 3:12 AM CDT Narrative [facility] - 05/27/2025 4:23 AM CDT Has the patient had Daratumumab or Isatuximab in the past 6 months?->Unknown Erika Chandler DO LAB BLOOD BANK TEST ORDERABLES F inal Result [facility] Department [place] [address] * Uric acid (05/27/2025 2:57 AM CDT) Pathologist [facility] Uric acid 4.5 3.0 - 8.0 mg/dL Blood 05/27/2025 2:57 AM CDT 05/27/2025 3:04 AM CDT us Tania Lott MD PhD LAB BLOOD ORDERABLES Fin al Result Performing Organization Address City/[facility] de Phone Number [facility] [place] [address] * Phosphorus (05/27/2025 2:57 AM CDT) Pathologist [facility] Phosphorus, pl 4.3 2.3 - 4.5 mg/dL Blood 05/27/2025 2:57 AM CDT 05/27/2025 3:04 AM CDT us Tania Lott MD PhD LAB BLOOD ORDERABLES Fin al Result Performing Organization Address [facility] de Phone Number [facility] [place] [address] * Magnesium (05/27/2025 2:57 AM CDT) Pathologist [facility] Magnesium 2.3 1.4 - 2.5 mg/dL Blood 05/27/2025 2:57 AM CDT 05/27/2025 3:04 AM CDT us Sandy Meraz ACCOUNT STRATEGIST LAB BLOOD ORDERABLES Final R esult Performing Organization Address [facility] de Phone Number [facility] [place] [address] * (ABNORMAL) Lactate dehydrogenase (LD) (05/27/2025 2:57 AM CDT) Pathologist [facility] Lactate dehydrogenase (LDH) 448(H) 100 - 250 Units/L Blood 05/27/2025 2:57 AM CDT 05/27/2025 3:04 AM CDT us Tania Lott MD PhD LAB BLOOD ORDERABLES Fin al Result [facility] [place] [address] * (ABNORMAL) Comprehensive metabolic panel (05/27/2025 2:57 AM CDT) Sodium 138 135 - 145 mmol/L Potassium, pl 3.9 3.3 - 4.9 mmol/L [facility] Chloride 98 97 - 110 mmol/L [facility] CO2 31 22 - 32 mmol/L [facility] Anion gap 9 2 - 15 mmol/L [facility] BUN 15 6 - 25 mg/dL [facility] Creatinine 0.92 0.80 - 1.30 mg/dL [facility] Glucose 102 70 - 199 mg/dL [facility] Comment: Interpretive Data Fasting glucose >/= 126 [...] Calcium 8.8 8.5 - 10.3 mg/dL [facility] Bilirubin, total 0.7 0.1 - 1.2 mg/dL [facility] Protein, pl 6.3(L) 6.5 - 8.5 g/dL [facility] Albumin 3.5 3.5 - 5.0 g/dL [facility] Alk phos 61 40 - 130 Units/L [facility] ALT 51 7 - 55 Units/L [facility] AST 40 10 - 50 Units/L [facility] Blood 05/27/2025 2:57 AM CDT 05/27/2025 3:04 AM CDT [facility] 3:47 AM CDT Saturday and only. Morning draw. us Erika Chandler DO LAB BLOOD ORDERABLES Final Resul t Performing Organization Address [facility]/ZIP Co de Phone Number [facility] [place] [address] * eGFR (05/26/2025 2:03 PM CDT) eGFR [...] ORDERABLES Fi nal Result Performing Organization Address City/[facility]/ZIP Co de Phone Number [facility] [place] [address] * Uric acid (05/26/2025 2:03 PM CDT) Uric acid 4.7 3.0 - 8.0 mg/dL Blood 05/26/2025 2:03 PM CDT 05/26/2025 2:28 PM CDT Dimple Bailey MD PhD LAB BLOOD ORDERABLES Fi nal Result Performing Organization Address City/[facility]/ZIP Co de Phone Number [facility] [place] [address] * Phosphorus (05/26/2025 2:03 PM CDT) Phosphorus, pl 4.1 2.3 - 4.5 mg/dL Blood 05/26/2025 2:03 PM CDT 05/26/2025 2:28 PM CDT Dimple Bailey MD PhD LAB BLOOD ORDERABLES Fi nal Result Performing Organization Address [facility] de Phone Number [facility] Department [place] [address] * Basic metabolic panel (05/26/2025 2:03 PM CDT) Pathologist [facility] Sodium 138 135 - 145 mmol/L Potassium, pl 4.0 3.3 - 4.9 mmol/L [facility] Chloride 102 97 - 110 mmol/L [facility] CO2 29 22 - 32 mmol/L [facility] Anion gap 7 2 - 15 mmol/L [facility] BUN 13 6 - 25 mg/dL [facility] Creatinine 0.91 0.80 - 1.30 mg/dL [facility] Glucose 122 70 - 199 mg/dL [facility] Comment: Interpretive Data Fasting glucose >/= 126 [...] 8.5 8.5 - 10.3 mg/dL [facility] Blood 05/26/2025 2:03 PM CDT 05/26/2025 2:28 PM CDT us Dimple Bailey MD PhD LAB BLOOD ORDERABLES Fi nal Result Performing Organization Address City/[facility]/ZIP Co de Phone Number [facility] [place] [address] * (ABNORMAL) Immature platelet fraction (05/26/2025 12:40 AM CDT) IPF 32.8(H) 1.6 - 10.1 % Blood 05/26/2025 12:4 0 AM CDT 05/26/2025 1:00 AM CDT us Sandy Meraz NP LAB BLOOD ORDERABLES Final R esult Performing Organization Address [facility] Co de Phone Number [facility] [place] [address] * eGFR (05/26/2025 12:40 AM CDT) eGFR [...] LAB BLOOD ORDERABLES Fi nal Result [facility] [place] [address] * Pro B-type natriuretic peptide (05/26/2025 12:40 [...] ORDERABLES Fi nal Result Performing Organization Address City/[facility] Co de Phone Number [facility] Department [place] [address] * (ABNORMAL) CBC with auto differential (05/26/2025 12:40 AM CDT) Pathologist [facility] WBC 1.82(L) 3.80 - 9.90 K/cumm Hgb 8.3(L) 13.0 - 17.5 g/dL [facility] Hct 25.6(L) 38.9 - 50.3 % [facility] Plt 48(C) 150 - 400 K/cumm [facility] Comment:Platelet count confi rmed by additional testing. Critical platelet count threshold determined by patient location: Outpatient:<50 K/cumm , Inpatient adults:<20 K/cumm , Inpatient pediatric:<25 K/cumm, BMT service:<10 K/cumm MPV Not Measured 9.1 - 12.3 fL [facility] RBC 2.79(L) 4.30 - 5.80 M/cumm [facility] MCV 91.8 81.3 - 96.4 fL [facility] MCH 29.7 27.1 - 33.3 pg [facility] MCHC 32.4 32.3 - 35.7 g/dL [facility] RDW CV 17.5(H) 11.1 - 14.9 % [facility] RDW SD 54.9(H) 35.7 - 48.1 fL [facility] NRBC abs 2.77(H) 0.00 - 0.01 K/cumm [facility] Blood 05/26/2025 12:4 0 AM CDT 05/26/2025 12:56 AM CDT us Sandy Meraz ACCOUNT STRATEGIST LAB BLOOD ORDERABLES Final R esult Performing Organization Address City/[facility]/ZIP Co de Phone Number [facility] [place] [address] * (ABNORMAL) Vitamin D 25 hydroxy (05/26/2025 12:40 AM CDT) Pathologist [facility] Vitamin D 25-OH 23(L) 30 - 80 ng/mL Blood 05/26/2025 12:4 0 AM CDT 05/26/2025 12:52 AM CDT us Dimple Bailey MD PhD LAB BLOOD ORDERABLES Fi nal Result Performing Organization Address [facility] Co de Phone Number [facility] Department [place] [address] * (ABNORMAL) Manual Differential (05/26/2025 12:40 AM CDT) [facility] Differential Manual Cells Counted 95 [facility] Neutrophil abs 0.94(L) 1.50 - 6.50 K/cumm [facility] Lymphocyte abs 0.79(L) 0.80 - 3.30 K/cumm [facility] Eosinophil abs 0.02 0.00 - 0.50 K/cumm [facility] Neutrophil pct 51.5 % [facility] Comment: Interpretive Data Percent cell count reference ranges are not reported, since discordance with absolute values may lead to misinterpretation of CBC data. Current Interpretive Data was last revised on 2018. Lymphocyte pct 43.2 % [facility] Comment: Interpretive Data Percent cell count reference ranges are not reported, since discordance with absolute values may lead to misinterpretation of CBC data. Current Interpretive Data was last revised on 2018. Eosinophil pct 1.1 % [facility] Comment: Interpretive Data Percent cell count reference ranges are not reported, since discordance with absolute values may lead to misinterpretation of CBC data. Current Interpretive Data was last revised on 2018. Blast pct 4.2(C) 0.0 - 0.0 [facility] Comment:Critical value greene d within last 30 days. RBC morphology Present(A) [facility] Anisocytosis Slight(A) [facility] Macrocytes 3-7/HPF(A) [facility] Platelet estimate Decreased( A) [facility] Blood 05/26/2025 12:4 0 AM CDT 05/26/2025 1:00 AM CDT us Sandy Meraz ACCOUNT STRATEGIST LAB BLOOD ORDERABLES Final R esult Performing Organization Address City/[facility] Co de Phone Number [facility] Department [place] [address] * Uric acid (05/26/2025 12:40 AM CDT) Uric acid 4.4 3.0 - 8.0 mg/dL Blood 05/26/2025 12:4 0 AM CDT 05/26/2025 12:52 AM CDT us Tania Lott MD PhD LAB BLOOD ORDERABLES Fin al Result Performing Organization Address [facility] Co de Phone Number [facility] [place] [address] * Phosphorus (05/26/2025 12:40 AM CDT) Phosphorus, pl 4.5 2.3 - 4.5 mg/dL Blood 05/26/2025 12:4 0 AM CDT 05/26/2025 12:52 AM CDT us Tania Lott MD PhD LAB BLOOD ORDERABLES Fin al Result Performing Organization Address City/[facility] Co de Phone Number [facility] [place] [address] * (ABNORMAL) PTH (05/26/2025 12:40 AM CDT) PTH 127(H) 15 - 65 pg/mL Blood 05/26/2025 12:4 0 AM CDT 05/26/2025 12:56 AM CDT us Junior Barnhart MD LAB BLOOD ORDERABL ES Final Result Performing Organization Address [facility] Co de Phone Number [facility] [place] [address] * Magnesium (05/26/2025 12:40 AM CDT) Magnesium 2.2 1.4 - 2.5 mg/dL Blood 05/26/2025 12:4 0 AM CDT 05/26/2025 12:52 AM CDT us Sandy Meraz NP LAB BLOOD ORDERABLES Final R esult Performing Organization Address [facility] de Phone Number [facility] [place] [address] * (ABNORMAL) Lactate dehydrogenase (LD) (05/26/2025 12:40 AM CDT) Lactate dehydrogenase (LDH) 450(H) 100 - 250 Units/L Blood 05/26/2025 12:4 0 AM CDT 05/26/2025 12:52 AM CDT us Tania Lott MD PhD LAB BLOOD ORDERABLES Fin al Result Performing Organization Address City/[facility] Co de Phone Number [facility] [place] [address] * Gamma GT (05/26/2025 12:40 AM CDT) GGT 27 10 - 50 Units/L Blood 05/26/2025 12:4 0 AM CDT 05/26/2025 1:03 AM CDT us Dimple Bailey MD PhD LAB BLOOD ORDERABLES Fi nal Result Performing Organization Address City/State/[facility] Co de Phone Number [facility] [place] [address] * (ABNORMAL) Comprehensive metabolic panel (05/26/2025 12:40 AM CDT) Sodium 140 135 - 145 mmol/L Potassium, pl 4.1 3.3 - 4.9 mmol/L [facility] Chloride 104 97 - 110 mmol/L [facility] CO2 30 22 - 32 mmol/L [facility] Anion gap 6 2 - 15 mmol/L [facility] BUN 14 6 - 25 mg/dL [facility] Creatinine 0.89 0.80 - 1.30 mg/dL [facility] Glucose 108 70 - 199 mg/dL [facility] Comment: Interpretive Data Fasting glucose >/= 126 [...] 2022. Calcium 8.4(L) 8.5 - 10.3 mg/dL [facility] Bilirubin, total 0.6 0.1 - 1.2 mg/dL [facility] Protein, pl 5.6(L) 6.5 - 8.5 g/dL [facility] Albumin 3.2(L) 3.5 - 5.0 g/dL [facility] Alk phos 53 40 - 130 Units/L [facility] ALT 47 7 - 55 Units/L [facility] AST 35 10 - 50 Units/L [facility] Blood 05/26/2025 12:4 0 AM CDT 05/26/2025 12:52 AM CDT us Dimple Bailey MD PhD LAB BLOOD ORDERABLES Fi nal Result Performing Organization Address City/State/[facility] Co de Phone Number [facility] [place] [address] * eGFR (05/25/2025 8:18 PM CDT) eGFR [...] ORDERABLES Fi nal Result Performing Organization Address [facility] Co de Phone Number [facility] [place] [address] * Uric acid (05/25/2025 8:18 PM CDT) Uric acid 4.2 3.0 - 8.0 mg/dL Blood 05/25/2025 8:18 PM CDT 05/25/2025 8:29 PM CDT Dimple Bailey MD PhD LAB BLOOD ORDERABLES Fi nal Result Performing Organization Address [facility]/ZIP Co de Phone Number [facility] [place] [address] * Phosphorus (05/25/2025 8:18 PM CDT) [facility] Phosphorus, pl 4.1 2.3 - 4.5 mg/dL Blood 05/25/2025 8:18 PM CDT 05/25/2025 8:29 PM CDT Dimple Bailey MD PhD LAB BLOOD ORDERABLES Fi nal Result [facility] [place] [address] * Basic metabolic panel (05/25/2025 8:18 PM CDT) [facility] Sodium 137 135 - 145 mmol/L Potassium, pl 3.8 3.3 - 4.9 mmol/L [facility] Chloride 100 97 - 110 mmol/L [facility] CO2 30 22 - 32 mmol/L [facility] Anion gap 7 2 - 15 mmol/L [facility] BUN 15 6 - 25 mg/dL [facility] Creatinine 0.91 0.80 - 1.30 mg/dL [facility] Glucose 155 70 - 199 mg/dL [facility] Comment: Interpretive Data Fasting glucose >/= 126 [...] 2022. Calcium 8.7 8.5 - 10.3 mg/dL [facility] Blood 05/25/2025 8:18 PM CDT 05/25/2025 8:29 PM CDT Dimple Bailey MD PhD LAB BLOOD ORDERABLES Fi nal Result Performing Organization Address City/[facility]/ZIP Co de Phone Number [facility] [place] [address] * eGFR (05/25/2025 3:36 PM CDT) eGFR [...] LAB BLOOD ORDERABLES Fi nal Result [facility] [place] [address] * Uric acid (05/25/2025 3:36 PM CDT) Uric acid 3.8 3.0 - 8.0 mg/dL Blood 05/25/2025 3:36 PM CDT 05/25/2025 3:46 PM CDT Dimple Bailey MD PhD LAB BLOOD ORDERABLES Fi nal Result [facility] [place] [address] * Phosphorus (05/25/2025 3:36 PM CDT) [facility] Phosphorus, pl 4.3 2.3 - 4.5 mg/dL Blood 05/25/2025 3:36 PM CDT 05/25/2025 3:46 PM CDT Dimple Bailey MD PhD LAB BLOOD ORDERABLES Fi nal Result Performing Organization Address City/[facility] Co de Phone Number [facility] [place] [address] * Basic metabolic panel (05/25/2025 3:36 PM CDT) [facility] Sodium 139 135 - 145 mmol/L Potassium, pl 4.2 3.3 - 4.9 mmol/L [facility] Chloride 101 97 - 110 mmol/L [facility] CO2 30 22 - 32 mmol/L [facility] Anion gap 8 2 - 15 mmol/L [facility] BUN 15 6 - 25 mg/dL [facility] Creatinine 0.91 0.80 - 1.30 mg/dL [facility] Glucose 133 70 - 199 mg/dL [facility] Comment: Interpretive Data Fasting glucose >/= 126 [...] 2022. Calcium 8.8 8.5 - 10.3 mg/dL [facility] Blood 05/25/2025 3:36 PM CDT 05/25/2025 3:46 PM CDT us Dimple Bailey MD PhD LAB BLOOD ORDERABLES Fi nal Result Performing Organization Address City/[facility]/ZIP Co de Phone Number [facility] Department [place] [address] * Urinalysis reflex to microscopic and culture Urine (05/25/2025 1:14 PM CDT) Color, ur Straw Yellow Clarity, ur Clear Clear [facility] Specific gravity, ur 1.009 1.003 - 1.030 [facility] pH, urine 6.0 [facility] Comment: Interpretive Data U rine pH is affected by diet, medications, systemic acid-base disturbances, and renal tubular function. pH may affect urinary stone formation. For example, urine pH below 6.0 may help reduce the tendency for calcium phosphate stones and pH greater than 6.0 may reduce the tendency for uric acid stone formation. Source: [facility] Current Interpretive Data was last revised on 2017 Protein, ur ql Negative Negative [facility] Glucose, ur ql Negative Negative [facility] Ketones, ur Negative Negative [facility] Bilirubin, ur Negative Negative [facility] Blood, ur Negative Negative [facility] Urobilinogen, ur <2.0 <2.0 mg/dL [facility] Nitrite, ur Negative Negative [facility] Leukocyte esterase, ur Negative Negative [facility] UA reflex comment Reflex conditions for microscopic UA and culture not met. [facility] Urine 05/25/2025 1:14 PM CDT 05/25/2025 1:49 PM CDT us Dimple Bailey MD PhD LAB MICROBIOLOGY - GENE RAL ORDERABLES Final Result Performing Organization Address City/[facility]/ZIP Co de Phone Number [facility] [place] [address] * Urea nitrogen, urine, random (05/25/2025 1:14 PM CDT) Urea nitrogen, ur 243 mg/dL Comment: Interpretive Data No reference range established. Current interpretive data was last revised 2019. Urine 05/25/2025 1:14 PM CDT 05/25/2025 2:05 PM CDT Dimple Bailey MD PhD LAB URINE ORDERABLES Fi nal Result Performing Organization Address [facility] de Phone Number [facility] [place] [address] * (ABNORMAL) Protein / creatinine ratio, urine, random (05/25/2025 1:14 PM CDT) Pathologist [facility] Protein, ur, quant 9.8 mg/dL Comment: Interpretive Data No reference range established. Current interpretive data was last revised 2019. Creatinine Ur 35.1 mg/dL [facility] Comment: Interpretive Data No reference range established. Current interpretive data was last revised 2019. Protein/creatinin e ratio 279.2(H) 0.0 - 180.0 mg/g CR [facility] Urine 05/25/2025 1:14 PM CDT 05/25/2025 2:05 PM CDT Dimple Bailey MD PhD LAB URINE ORDERABLES Fi nal Result Performing Organization Address [facility] de Phone Number [facility] [place] [address] * (ABNORMAL) Albumin Creatinine Ratio, Urine (05/25/2025 1:14 PM CDT) Pathologist [facility] Albumin Ur 17.3 mg/L Comment: Interpretive Data No reference range established. Current interpretive data was last revised 2019. Creatinine Ur 35.1 mg/dL [facility] Comment: Interpretive Data No reference range established. Current interpretive data was last revised 2019. Albumin Creatinine Ratio, Ur 48(H) 1 - 29 mg/g [facility] Urine 05/25/2025 1:14 PM CDT 05/25/2025 2:39 PM CDT Dimple Bailey MD PhD LAB URINE ORDERABLES Fi nal Result Performing Organization Address [facility] de Phone Number [facility] [place] [address] * Sodium, urine, random (05/25/2025 1:14 PM CDT) Pathologist [facility] Sodium, ur 68 mmol/L Comment: Interpretive Data No reference range established. Current interpretive data was last revised 2019. Urine 05/25/2025 1:14 PM CDT 05/25/2025 2:05 PM CDT Dimple Bailey MD PhD LAB URINE ORDERABLES Fi nal Result Performing Organization Address [facility] de Phone Number [facility] [place] [address] * (ABNORMAL) Immature platelet fraction (05/25/2025 12:51 AM CDT) Pathologist [facility] IPF 31.6(H) 1.6 - 10.1 % Blood 05/25/2025 12:5 1 AM CDT 05/25/2025 1:05 AM CDT Sandy Meraz ACCOUNT STRATEGIST LAB BLOOD ORDERABLES Final R esult Performing Organization Address [facility] Co de Phone Number [facility] [place] [address] * eGFR (05/25/2025 12:51 AM CDT) [facility] eGFR >90 >=60 mL/min/1. 73 m2 Comment: [...] ORDERABLES Fin al Result Performing Organization Address City/[facility]/ZIP Co de Phone Number [facility] [place] [address] * Cystatin C (05/25/2025 12:51 AM CDT) [facility] Signature Cystatin C 1.16 0.60 - [...] last revised on 2020. Testing performed by: [facility], [facility], [place]., [address] Blood 05/25/2025 12:5 1 AM CDT 05/25/2025 12:53 PM CDT us Dimple Bailey MD PhD LAB BLOOD ORDERABLES Fi nal Result Performing Organization Address City/[facility]/ZIP Co de Phone Number [facility] Department [place] [address] * Extra slide preparation (05/25/2025 12:51 AM CDT) Pathologist [facility] Extra slide prep Slide available for pickup from the lab. Blood 05/25/2025 12:5 1 AM CDT 05/25/2025 1:05 AM CDT Junior Barnhart MD LAB BLOOD ORDERABL ES Final Result [facility] [place] [address] * (ABNORMAL) CBC with auto differential (05/25/2025 12:51 AM CDT) Pathologist [facility] WBC 2.51(L) 3.80 - 9.90 K/cumm Hgb 8.7(L) 13.0 - 17.5 g/dL [facility] Hct 25.8(L) 38.9 - 50.3 % [facility] Plt 45(C) 150 - 400 K/cumm [facility] Comment:Platelet count confi rmed by additional testing. Critical platelet count threshold determined by patient location: Outpatient:<50 K/cumm , Inpatient adults:<20 K/cumm , Inpatient pediatric:<25 K/cumm, BMT service:<10 K/cumm MPV Not Measured 9.1 - 12.3 fL [facility] RBC 2.87(L) 4.30 - 5.80 M/cumm [facility] MCV 89.9 81.3 - 96.4 fL [facility] MCH 30.3 27.1 - 33.3 pg [facility] MCHC 33.7 32.3 - 35.7 g/dL [facility] RDW CV 17.7(H) 11.1 - 14.9 % [facility] RDW SD 54.2(H) 35.7 - 48.1 fL [facility] NRBC abs 3.70(H) 0.00 - 0.01 K/cumm [facility] Morphologic Screen Results confirmed by manual morphology review. [facility] Blood 05/25/2025 12:5 1 AM CDT 05/25/2025 1:02 AM CDT us Sandy Meraz NP LAB BLOOD ORDERABLES Edited Result - Final [facility] [place] [address] * (ABNORMAL) Manual Differential (05/25/2025 12:51 AM CDT) Differential Manual Cells Counted 79 [facility] Neutrophil abs 1.17(L) 1.50 - 6.50 K/cumm [facility] Lymphocyte abs 0.92 0.80 - 3.30 K/cumm [facility] Eosinophil abs 0.10 0.00 - 0.50 K/cumm [facility] Basophil abs 0.10 0.00 - 0.10 K/cumm [facility] Neutrophil pct 46.8 % [facility] Comment: Interpretive Data Percent cell count reference ranges are not reported, since discordance with absolute values may lead to misinterpretation of CBC data. Current Interpretive Data was last revised on 2018. Lymphocyte pct 36.7 % [facility] Comment: Interpretive Data Percent cell count reference ranges are not reported, since discordance with absolute values may lead to misinterpretation of CBC data. Current Interpretive Data was last revised on 2018. Eosinophil pct 3.8 % [facility] Comment: Interpretive Data Percent cell count reference ranges are not reported, since discordance with absolute values may lead to misinterpretation of CBC data. Current Interpretive Data was last revised on 2018. Basophil pct 3.8 % [facility] Comment: Interpretive Data Percent cell count reference ranges are not reported, since discordance with absolute values may lead to misinterpretation of CBC data. Current Interpretive Data was last revised on 2018. Blast pct 8.9(C) 0.0 - 0.0 [facility] Comment:Critical value greene d within last 30 days. Smudge cells, qual Present(A) [facility] RBC morphology Present(A) [facility] Platelet clumping Present(A) [facility] Blood 05/25/2025 12:5 1 AM CDT 05/25/2025 1:05 AM CDT Sandy Meraz ACCOUNT STRATEGIST LAB BLOOD ORDERABLES Edited Result - Final Performing Organization Address [facility] Co de Phone Number [facility] [place] [address] * (ABNORMAL) Uric acid (05/25/2025 12:51 AM CDT) Uric acid 2.8(L) 3.0 - 8.0 mg/dL Blood 05/25/2025 12:5 1 AM CDT 05/25/2025 1:02 AM CDT us Tania Lott MD PhD LAB BLOOD ORDERABLES Fin al Result Performing Organization Address [facility] Co de Phone Number [facility] [place] [address] * Phosphorus (05/25/2025 12:51 AM CDT) Phosphorus, pl 3.4 2.3 - 4.5 mg/dL Blood 05/25/2025 12:5 1 AM CDT 05/25/2025 1:02 AM CDT us Tania Lott MD PhD LAB BLOOD ORDERABLES Fin al Result Performing Organization Address City/[facility] Co de Phone Number [facility] [place] [address] * Magnesium (05/25/2025 12:51 AM CDT) Magnesium 2.1 1.4 - 2.5 mg/dL Blood 05/25/2025 12:5 1 AM CDT 05/25/2025 1:02 AM CDT us Sandy Meraz ACCOUNT STRATEGIST LAB BLOOD ORDERABLES Final R esult Performing Organization Address City/[facility]/ZIP Co de Phone Number [facility] [place] [address] * (ABNORMAL) Lactate dehydrogenase (LD) (05/25/2025 12:51 AM CDT) Pathologist [facility] Lactate dehydrogenase (LDH) 433(H) 100 - 250 Units/L Blood 05/25/2025 12:5 1 AM CDT 05/25/2025 1:02 AM CDT Tania Lott MD PhD LAB BLOOD ORDERABLES Fin al Result Performing Organization Address [facility] Co de Phone Number [facility] Department [place] [address] * (ABNORMAL) Basic metabolic panel (05/25/2025 12:51 AM CDT) [facility] Sodium 141 135 - 145 mmol/L Potassium, pl 3.6 3.3 - 4.9 mmol/L [facility] Chloride 105 97 - 110 mmol/L [facility] CO2 29 22 - 32 mmol/L [facility] Anion gap 7 2 - 15 mmol/L [facility] BUN 12 6 - 25 mg/dL [facility] Creatinine 0.73(L) 0.80 - 1.30 mg/dL [facility] Glucose 114 70 - 199 mg/dL [facility] Comment: Interpretive Data Fasting glucose >/= 126 [...] 2022. Calcium 8.6 8.5 - 10.3 mg/dL [facility] Blood 05/25/2025 12:5 1 AM CDT 05/25/2025 1:02 AM CDT us Tania Lott MD PhD LAB BLOOD ORDERABLES Fin al Result Performing Organization Address City/[facility]/ZIP Co de Phone Number [facility] [place] [address] * (ABNORMAL) Immature platelet fraction (05/24/2025 8:22 PM CDT) IPF 30.1(H) 1.6 - 10.1 % Blood 05/24/2025 8:22 PM CDT 05/24/2025 8:48 PM CDT Dimple Bailey MD PhD LAB BLOOD ORDERABLES Fi nal Result Performing Organization Address City/[facility] Co de Phone Number [facility] [place] [address] * eGFR (05/24/2025 8:22 PM CDT) eGFR [...] PhD LAB BLOOD ORDERABLES Fi nal Result [facility] [place] [address] * (ABNORMAL) CBC with auto differential (05/24/2025 8:22 PM CDT) [facility] WBC 2.02(L) 3.80 - 9.90 K/cumm Hgb 8.7(L) 13.0 - 17.5 g/dL [facility] Hct 25.6(L) 38.9 - 50.3 % [facility] Plt 44(C) 150 - 400 K/cumm [facility] Comment:Platelet count confi rmed by additional testing. Critical platelet count threshold determined by patient location: Outpatient:<50 K/cumm , Inpatient adults:<20 K/cumm , Inpatient pediatric:<25 K/cumm, BMT service:<10 K/cumm MPV Not Measured 9.1 - 12.3 fL [facility] RBC 2.87(L) 4.30 - 5.80 M/cumm [facility] MCV 89.2 81.3 - 96.4 fL [facility] MCH 30.3 27.1 - 33.3 pg [facility] MCHC 34.0 32.3 - 35.7 g/dL [facility] RDW CV 17.3(H) 11.1 - 14.9 % [facility] RDW SD 53.8(H) 35.7 - 48.1 fL [facility] NRBC abs 3.44(H) 0.00 - 0.01 K/cumm [facility] Blood 05/24/2025 8:22 PM CDT 05/24/2025 8:44 PM CDT Dimple Bailey MD PhD LAB BLOOD ORDERABLES Fi nal Result [facility] [place] [address] * (ABNORMAL) Manual Differential (05/24/2025 8:22 PM CDT) Differential Manual Cells Counted 81 [facility] Neutrophil abs 0.48(C) 1.50 - 6.50 K/cumm [facility] Comment:BMT patient, result not critical Lymphocyte abs 1.27 0.80 - 3.30 K/cumm [facility] Monocyte abs 0.02(L) 0.20 - 0.80 K/cumm [facility] Eosinophil abs 0.02 0.00 - 0.50 K/cumm [facility] Basophil abs 0.12(H) 0.00 - 0.10 K/cumm [facility] Neutrophil pct 24.0 % [facility] Comment: Interpretive Data Percent cell count reference ranges are not reported, since discordance with absolute values may lead to misinterpretation of CBC data. Current Interpretive Data was last revised on 2018. Lymphocyte pct 60.0 % [facility] Comment: Interpretive Data Percent cell count reference ranges are not reported, since discordance with absolute values may lead to misinterpretation of CBC data. Current Interpretive Data was last revised on 2018. Monocyte pct 1.0 % [facility] Comment: Interpretive Data Percent cell count reference ranges are not reported, since discordance with absolute values may lead to misinterpretation of CBC data. Current Interpretive Data was last revised on 2018. Eosinophil pct 1.0 % [facility] Comment: Interpretive Data Percent cell count reference ranges are not reported, since discordance with absolute values may lead to misinterpretation of CBC data. Current Interpretive Data was last revised on 2018. Basophil pct 6.0 % [facility] Comment: Interpretive Data Percent cell count reference ranges are not reported, since discordance with absolute values may lead to misinterpretation of CBC data. Current Interpretive Data was last revised on 2018. Blast pct 5.0(C) 0.0 - 0.0 [facility] Comment:Critical value greene d within last 30 days. Variant lymph pct 3.0(H) 0.0 - 0.0 % [facility] Blood 05/24/2025 8:22 PM CDT 05/24/2025 8:48 PM CDT Dimple Bailey MD PhD LAB BLOOD ORDERABLES Fi nal Result [facility] [place] [address] * (ABNORMAL) Uric acid (05/24/2025 8:22 PM CDT) Uric acid 2.7(L) 3.0 - 8.0 mg/dL Blood 05/24/2025 8:22 PM CDT 05/24/2025 8:45 PM CDT Dimple Bailey MD PhD LAB BLOOD ORDERABLES Fi nal Result Performing Organization Address City/[facility] Co de Phone Number [facility] [place] [address] * Phosphorus (05/24/2025 8:22 PM CDT) Phosphorus, pl 3.5 2.3 - 4.5 mg/dL Blood 05/24/2025 8:22 PM CDT 05/24/2025 8:45 PM CDT Dimple Bailey MD PhD LAB BLOOD ORDERABLES Fi nal Result Performing Organization Address City/[facility] Co de Phone Number [facility] [place] [address] * Magnesium (05/24/2025 8:22 PM CDT) Magnesium 1.8 1.4 - 2.5 mg/dL Blood 05/24/2025 8:22 PM CDT 05/24/2025 8:45 PM CDT Dimple Bailey MD PhD LAB BLOOD ORDERABLES Fi nal Result Performing Organization Address City/[facility] Co de Phone Number [facility] [place] [address] * (ABNORMAL) Lactate dehydrogenase (LD) (05/24/2025 8:22 PM CDT) [facility] Lactate dehydrogenase (LDH) 436(H) 100 - 250 Units/L Blood 05/24/2025 8:22 PM CDT 05/24/2025 8:45 PM CDT Dimple Bailey MD PhD LAB BLOOD ORDERABLES Fi nal Result Performing Organization Address [facility] Co de Phone Number [facility] [place] [address] * (ABNORMAL) Creatine kinase (CK), total (05/24/2025 8:22 PM CDT) [facility] CK 34(L) 40 - 300 Units/L Blood 05/24/2025 8:22 PM CDT 05/24/2025 8:45 PM CDT Dimple Bailey MD PhD LAB BLOOD ORDERABLES Fi nal Result Performing Organization Address City/[facility] Co de Phone Number [facility] [place] [address] * (ABNORMAL) Comprehensive metabolic panel (05/24/2025 8:22 PM CDT) [facility] Sodium 139 135 - 145 mmol/L Potassium, pl 3.9 3.3 - 4.9 mmol/L [facility] Chloride 104 97 - 110 mmol/L [facility] CO2 29 22 - 32 mmol/L [facility] Anion gap 6 2 - 15 mmol/L [facility] BUN 12 6 - 25 mg/dL [facility] Creatinine 0.72(L) 0.80 - 1.30 mg/dL [facility] Glucose 82 70 - 199 mg/dL [facility] Comment: Interpretive Data Fasting glucose >/= 126 [...] 2022. Calcium 8.4(L) 8.5 - 10.3 mg/dL [facility] Bilirubin, total 0.5 0.1 - 1.2 mg/dL [facility] Protein, pl 5.6(L) 6.5 - 8.5 g/dL [facility] Albumin 3.2(L) 3.5 - 5.0 g/dL [facility] Alk phos 59 40 - 130 Units/L [facility] ALT 44 7 - 55 Units/L [facility] AST 30 10 - 50 Units/L [facility] Blood 05/24/2025 8:22 PM CDT 05/24/2025 8:45 PM CDT us Dimple Bailey MD PhD LAB BLOOD ORDERABLES Fi nal Result [facility] [place] [address] * HLA Hematopoietic Stem Cell Typing Report (05/24/2025 10:19 AM CDT) us Erika Chandler DO LAB BLOOD ORDERABLES Final Resul t * (ABNORMAL) Immature platelet fraction (05/24/2025 12:33 AM CDT) IPF 29.3(H) 1.6 - 10.1 % Blood 05/24/2025 12:3 3 AM CDT 05/24/2025 4:59 AM CDT us Sandy Poornima Kt ACCOUNT STRATEGIST LAB BLOOD ORDERABLES Final R esult Performing Organization Address City/[facility] Co de Phone Number ANGELA [facility] Department [place] [address] * eGFR (05/24/2025 12:33 AM CDT) eGFR [...] ORDERABLES Final Resul t Performing Organization Address [facility]/ZIP Co de Phone Number [facility] [place] [address] * Senior staff review (05/24/2025 12:33 AM CDT) Pathologist [facility] Senior Staff Review Specimen Blood Senior Staff Review Review Done [facility] Comment:Reviewed by senior bishop sparrow.05/24/2025 07:25:41 CDT by chris [email or web address] (mls). Blood 05/24/2025 12:3 3 AM CDT 05/24/2025 4:59 AM CDT us Tania Lott MD PhD LAB BLOOD ORDERABLES Fin al Result [facility] [place] [address] * (ABNORMAL) CBC with auto differential (05/24/2025 12:33 AM CDT) Pathologist [facility] WBC 2.37(L) 3.80 - 9.90 K/cumm Hgb 8.5(L) 13.0 - 17.5 g/dL [facility] Hct 25.2(L) 38.9 - 50.3 % [facility] Plt 36(C) 150 - 400 K/cumm [facility] Comment:Platelet count confi rmed by additional testing. Critical platelet count threshold determined by patient location: Outpatient:<50 K/cumm , Inpatient adults:<20 K/cumm , Inpatient pediatric:<25 K/cumm, BMT service:<10 K/cumm MPV Not Measured 9.1 - 12.3 fL [facility] RBC 2.81(L) 4.30 - 5.80 M/cumm [facility] MCV 89.7 81.3 - 96.4 fL [facility] MCH 30.2 27.1 - 33.3 pg [facility] MCHC 33.7 32.3 - 35.7 g/dL [facility] RDW CV 17.6(H) 11.1 - 14.9 % [facility] RDW SD 54.6(H) 35.7 - 48.1 fL [facility] NRBC abs 1.92(H) 0.00 - 0.01 K/cumm [facility] Morphologic Screen Results confirmed by manual morphology review. [facility] Blood 05/24/2025 12:3 3 AM CDT 05/24/2025 4:59 AM CDT us Sandy Meraz NP LAB BLOOD ORDERABLES Edited Result - Final [facility] [place] [address] * (ABNORMAL) Manual Differential (05/24/2025 12:33 AM CDT) Differential Manual Cells Counted 104 [facility] Neutrophil abs 0.87(L) 1.50 - 6.50 K/cumm [facility] Lymphocyte abs 1.35 0.80 - 3.30 K/cumm [facility] Monocyte abs 0.05(L) 0.20 - 0.80 K/cumm [facility] Eosinophil abs 0.02 0.00 - 0.50 K/cumm [facility] Basophil abs 0.05 0.00 - 0.10 K/cumm [facility] Neutrophil pct 36.5 % [facility] Comment: Interpretive Data Percent cell count reference ranges are not reported, since discordance with absolute values may lead to misinterpretation of CBC data. Current Interpretive Data was last revised on 2018. Lymphocyte pct 56.8 % [facility] Comment: Interpretive Data Percent cell count reference ranges are not reported, since discordance with absolute values may lead to misinterpretation of CBC data. Current Interpretive Data was last revised on 2018. Monocyte pct 1.9 % [facility] Comment: Interpretive Data Percent cell count reference ranges are not reported, since discordance with absolute values may lead to misinterpretation of CBC data. Current Interpretive Data was last revised on 2018. Eosinophil pct 1.0 % [facility] Comment: Interpretive Data Percent cell count reference ranges are not reported, since discordance with absolute values may lead to misinterpretation of CBC data. Current Interpretive Data was last revised on 2018. Basophil pct 1.9 % [facility] Comment: Interpretive Data Percent cell count reference ranges are not reported, since discordance with absolute values may lead to misinterpretation of CBC data. Current Interpretive Data was last revised on 2018. Blast pct 1.9(C) 0.0 - 0.0 [facility] Comment:Critical value greene d within last 30 days. Smudge cells, qual Present(A) [facility] RBC morphology Normal [facility] Blood 05/24/2025 12:3 3 AM CDT 05/24/2025 4:59 AM CDT Sandy Meraz NP LAB BLOOD ORDERABLES Edited Result - Final Performing Organization Address [facility] Co de Phone Number [facility] [place] [address] * aPTT (05/24/2025 12:33 AM CDT) aPTT [...] ORDERABLES Izzy l Result Performing Organization Address [facility] de Phone Number [facility] [place] [address] * Type and screen (05/24/2025 12:33 AM CDT) ABO Rh B Positive Benjy, indirect Negative [facility] Blood 05/24/2025 12:3 3 AM CDT 05/24/2025 12:58 AM CDT Narrative [facility] - 05/24/2025 1:52 AM CDT Has the patient had Daratumumab or Isatuximab in the past 6 months?->Unknown Erika Chandler DO LAB BLOOD BANK TEST ORDERABLES F inal Result Performing Organization Address [facility] Co de Phone Number [facility] [place] [address] * (ABNORMAL) Uric acid (05/24/2025 12:33 AM CDT) Pathologist [facility] Uric acid 2.5(L) 3.0 - 8.0 mg/dL Blood 05/24/2025 12:3 3 AM CDT 05/24/2025 12:59 AM CDT us Tania Lott MD PhD LAB BLOOD ORDERABLES Fin al Result Performing Organization Address [facility] Co de Phone Number [facility] [place] [address] * Phosphorus (05/24/2025 12:33 AM CDT) Pathologist [facility] Phosphorus, pl 3.3 2.3 - 4.5 mg/dL Blood 05/24/2025 12:3 3 AM CDT 05/24/2025 12:59 AM CDT us Tania Lott MD PhD LAB BLOOD ORDERABLES Fin al Result Performing Organization Address [facility] Co de Phone Number [facility] [place] [address] * Magnesium (05/24/2025 12:33 AM CDT) [facility] Magnesium 1.7 1.4 - 2.5 mg/dL Blood 05/24/2025 12:3 3 AM CDT 05/24/2025 12:59 AM CDT us Sandy Meraz ACCOUNT STRATEGIST LAB BLOOD ORDERABLES Final R esult Performing Organization Address [facility] Co de Phone Number [facility] [place] [address] * (ABNORMAL) Lactate dehydrogenase (LD) (05/24/2025 12:33 AM CDT) [facility] Lactate dehydrogenase (LDH) 491(H) 100 - 250 Units/L Blood 05/24/2025 12:3 3 AM CDT 05/24/2025 12:59 AM CDT us Tania Lott MD PhD LAB BLOOD ORDERABLES Fin al Result Performing Organization Address City/[facility]/ZIP Co de Phone Number [facility] [place] [address] * (ABNORMAL) Creatine kinase (CK), total (05/24/2025 12:33 AM CDT) Pathologist [facility] CK 30(L) 40 - 300 Units/L Blood 05/24/2025 12:3 3 AM CDT 05/24/2025 12:59 AM CDT Dimple Bailey MD PhD LAB BLOOD ORDERABLES Fi nal Result Performing Organization Address [facility] Co de Phone Number [facility] Department [place] [address] * (ABNORMAL) Comprehensive metabolic panel (05/24/2025 12:33 AM CDT) [facility] Sodium 139 135 - 145 mmol/L Potassium, pl 3.6 3.3 - 4.9 mmol/L [facility] Chloride 103 97 - 110 mmol/L [facility] CO2 30 22 - 32 mmol/L [facility] Anion gap 6 2 - 15 mmol/L [facility] BUN 12 6 - 25 mg/dL [facility] Creatinine 0.75(L) 0.80 - 1.30 mg/dL [facility] Glucose 110 70 - 199 mg/dL [facility] Comment: Interpretive Data Fasting glucose >/= 126 [...] 2022. Calcium 8.9 8.5 - 10.3 mg/dL [facility] Bilirubin, total 0.6 0.1 - 1.2 mg/dL [facility] Protein, pl 5.7(L) 6.5 - 8.5 g/dL [facility] Albumin 3.3(L) 3.5 - 5.0 g/dL [facility] Alk phos 64 40 - 130 Units/L [facility] ALT 43 7 - 55 Units/L [facility] AST 27 10 - 50 Units/L [facility] Blood 05/24/2025 12:3 3 AM CDT 05/24/2025 12:59 AM CDT Narrative [facility] - 05/24/2025 1:30 AM CDT Saturday and only. Morning draw. us Erika Chandler DO LAB BLOOD ORDERABLES Final Resul t Performing Organization Address City/[facility]/ZIP Co de Phone Number [facility] [place] [address] * (ABNORMAL) Immature platelet fraction (05/23/2025 12:45 AM CDT) [facility] IPF 27.5(H) 1.6 - 10.1 % Blood 05/23/2025 12:4 5 AM CDT 05/23/2025 1:22 AM CDT us Sandy Meraz ACCOUNT STRATEGIST LAB BLOOD ORDERABLES Final R esult [facility] [place] [address] * eGFR (05/23/2025 12:45 AM CDT) [facility] eGFR >90 >=60 mL/min/1. 73 m2 Comment: [...] BLOOD ORDERABLES Fin al Result [facility] Department [place] [address] * (ABNORMAL) Differential, auto (05/23/2025 12:45 AM CDT) Neutrophil abs 0.88(L) 1.50 - 6.50 K/cumm Imm gran abs 0.02 0.00 - 0.10 K/cumm [facility] Lymphocyte abs 1.12 0.80 - 3.30 K/cumm [facility] Monocyte abs 0.19(L) 0.20 - 0.80 K/cumm [facility] Eosinophil abs 0.06 0.00 - 0.50 K/cumm [facility] Basophil abs 0.00 0.00 - 0.10 K/cumm [facility] Neutrophil pct 38.8 % [facility] Comment: Interpretive Data Percent cell count reference ranges are not reported, since discordance with absolute values may lead to misinterpretation of CBC data. Current Interpretive Data was last revised on 2018. Imm gran pct 0.9 % [facility] Comment: Interpretive Data Percent cell count reference ranges are not reported, since discordance with absolute values may lead to misinterpretation of CBC data. Current Interpretive Data was last revised on 2018. Lymphocyte pct 49.3 % [facility] Comment: Interpretive Data Percent cell count reference ranges are not reported, since discordance with absolute values may lead to misinterpretation of CBC data. Current Interpretive Data was last revised on 2018. Monocyte pct 8.4 % [facility] Comment: Interpretive Data Percent cell count reference ranges are not reported, since discordance with absolute values may lead to misinterpretation of CBC data. Current Interpretive Data was last revised on 2018. Eosinophil pct 2.6 % [facility] Comment: Interpretive Data Percent cell count reference ranges are not reported, since discordance with absolute values may lead to misinterpretation of CBC data. Current Interpretive Data was last revised on 2018. Basophil pct 0.0 % [facility] Comment: Interpretive Data Percent cell count reference ranges are not reported, since discordance with absolute values may lead to misinterpretation of CBC data. Current Interpretive Data was last revised on 2018. Blood 05/23/2025 12:4 5 AM CDT 05/23/2025 1:19 AM CDT us Sandy Meraz NP LAB BLOOD ORDERABLES Final R esult [facility] [place] [address] * (ABNORMAL) CBC with auto differential (05/23/2025 12:45 AM CDT) WBC 2.27(L) 3.80 - 9.90 K/cumm Hgb 8.6(L) 13.0 - 17.5 g/dL [facility] Hct 25.0(L) 38.9 - 50.3 % [facility] Plt 33(C) 150 - 400 K/cumm [facility] Comment:Platelet count confi rmed by additional testing. Critical platelet count threshold determined by patient location: Outpatient:<50 K/cumm , Inpatient adults:<20 K/cumm , Inpatient pediatric:<25 K/cumm, BMT service:<10 K/cumm MPV Not Measured 9.1 - 12.3 fL [facility] RBC 2.86(L) 4.30 - 5.80 M/cumm [facility] MCV 87.4 81.3 - 96.4 fL [facility] MCH 30.1 27.1 - 33.3 pg [facility] MCHC 34.4 32.3 - 35.7 g/dL [facility] RDW CV 17.7(H) 11.1 - 14.9 % [facility] RDW SD 52.5(H) 35.7 - 48.1 fL [facility] NRBC abs 1.14(H) 0.00 - 0.01 K/cumm [facility] Blood 05/23/2025 12:4 5 AM CDT 05/23/2025 1:19 AM CDT us Sandy Meraz ACCOUNT STRATEGIST LAB BLOOD ORDERABLES Final R esult [facility] Department [place] [address] * (ABNORMAL) Uric acid (05/23/2025 12:45 AM CDT) Uric acid 2.6(L) 3.0 - 8.0 mg/dL Blood 05/23/2025 12:4 5 AM CDT 05/23/2025 1:20 AM CDT us Tania Lott MD PhD LAB BLOOD ORDERABLES Fin al Result [facility] [place] [address] * Phosphorus (05/23/2025 12:45 AM CDT) Phosphorus, pl 3.1 2.3 - 4.5 mg/dL Blood 05/23/2025 12:4 5 AM CDT 05/23/2025 1:20 AM CDT Tania Lott MD PhD LAB BLOOD ORDERABLES Fin al Result Performing Organization Address [facility] de Phone Number [facility] [place] [address] * Magnesium (05/23/2025 12:45 AM CDT) [facility] Magnesium 1.7 1.4 - 2.5 mg/dL Blood 05/23/2025 12:4 5 AM CDT 05/23/2025 1:20 AM CDT us Sandy Meraz ACCOUNT STRATEGIST LAB BLOOD ORDERABLES Final R esult Performing Organization Address [facility] de Phone Number [facility] Department [place] [address] * (ABNORMAL) Lactate dehydrogenase (LD) (05/23/2025 12:45 AM CDT) [facility] Lactate dehydrogenase (LDH) 502(H) 100 - 250 Units/L Blood 05/23/2025 12:4 5 AM CDT 05/23/2025 1:20 AM CDT Tania Lott MD PhD LAB BLOOD ORDERABLES Fin al Result Performing Organization Address [facility] de Phone Number [facility] [place] [address] * (ABNORMAL) Basic metabolic panel (05/23/2025 12:45 AM CDT) [facility] Sodium 139 135 - 145 mmol/L Potassium, pl 4.1 3.3 - 4.9 mmol/L [facility] Chloride 104 97 - 110 mmol/L [facility] CO2 28 22 - 32 mmol/L [facility] Anion gap 7 2 - 15 mmol/L [facility] BUN 12 6 - 25 mg/dL [facility] Creatinine 0.73(L) 0.80 - 1.30 mg/dL [facility] Glucose 85 70 - 199 mg/dL [facility] Comment: Interpretive Data Fasting glucose >/= 126 [...] 2022. Calcium 8.3(L) 8.5 - 10.3 mg/dL [facility] Blood 05/23/2025 12:4 5 AM CDT 05/23/2025 1:20 AM CDT us Tania Lott MD PhD LAB BLOOD ORDERABLES Fin al Result [facility] Department [place] [address] * POCT glucose (05/22/2025 1:38 PM CDT) Glucose, POC 125 70 - 199 mg/dL Blood 05/22/2025 1:38 PM CDT 05/22/2025 1:38 PM CDT us Tania Lott MD PhD LAB POCT ORDERABLES - DE VICE Final Result Performing Organization Address City/[facility]/ZIP Co de Phone Number [facility] Department [place] [address] * POCT glucose (05/22/2025 8:22 AM CDT) Glucose, POC 142 70 - 199 mg/dL Blood 05/22/2025 8:22 AM CDT 05/22/2025 8:22 AM CDT us Tania Lott MD PhD LAB POCT ORDERABLES - DE VICE Final Result Performing Organization Address [facility] Co de Phone Number [facility] [place], [place] [id number] * Transfuse RBC (05/22/2025 6:02 AM CDT) Blood Tania Lott MD PhD BLOOD TRANSFUSION ORDERA BLES Final Result Performing Organization Address [facility] Co de Phone Number [facility] [address] * Prepare RBC: 1 Units (05/22/2025 3:30 AM CDT) [facility] Product code [id number] Unit Number [id number] Y [facility] Product Blood Type BPOS [facility] Dispense Status PRESUMED TRANSFUSED [facility] Blood Venous blood specimen / Unknown 05/22/2025 3:30 AM CDT 05/22/2025 3:29 AM CDT Narrative [facility] - 05/22/2025 4:01 PM CDT Are special requirements needed? (All products are leukoreduced and CMV- safe)- >Yes Date required:-[id number] Special Req 1:-Irradiated LRRBC # of [id number] Reasons:-BMT, Hgb <8 g/dL} us Tania Lott MD PhD BLOOD BANK PRODUCT ORDER BIANKA Final Result Performing Organization Address City/[facility]/ZIP Co de Phone Number [facility] [place] [address] * (ABNORMAL) Immature platelet fraction (05/22/2025 12:46 AM CDT) Pathologist [facility] IPF 26.9(H) 1.6 - 10.1 % Blood 05/22/2025 12:4 6 AM CDT 05/22/2025 1:01 AM CDT us Sandy Meraz ACCOUNT STRATEGIST LAB BLOOD ORDERABLES Final R esult Performing Organization Address [facility] Co de Phone Number [facility] [place] [address] * eGFR (05/22/2025 12:46 AM CDT) [facility] eGFR >90 >=60 mL/min/1. 73 m2 Comment: [...] ORDERABLES Fin al Result Performing Organization Address City/[facility]/ZIP Co de Phone Number [facility] [place] [address] * (ABNORMAL) Differential, auto (05/22/2025 12:46 AM CDT) Neutrophil abs 0.49(C) 1.50 - 6.50 K/cumm Comment:BMT patient, result not critical Imm gran abs 0.01 0.00 - 0.10 K/cumm [facility] Lymphocyte abs 1.05 0.80 - 3.30 K/cumm [facility] Monocyte abs 0.13(L) 0.20 - 0.80 K/cumm [facility] Eosinophil abs 0.02 0.00 - 0.50 K/cumm [facility] Basophil abs 0.00 0.00 - 0.10 K/cumm [facility] Neutrophil pct 28.8 % [facility] Comment: Interpretive Data Percent cell count reference ranges are not reported, since discordance with absolute values may lead to misinterpretation of CBC data. Current Interpretive Data was last revised on 2018. Imm gran pct 0.6 % [facility] Comment: Interpretive Data Percent cell count reference ranges are not reported, since discordance with absolute values may lead to misinterpretation of CBC data. Current Interpretive Data was last revised on 2018. Lymphocyte pct 61.8 % [facility] Comment: Interpretive Data Percent cell count reference ranges are not reported, since discordance with absolute values may lead to misinterpretation of CBC data. Current Interpretive Data was last revised on 2018. Monocyte pct 7.6 % [facility] Comment: Interpretive Data Percent cell count reference ranges are not reported, since discordance with absolute values may lead to misinterpretation of CBC data. Current Interpretive Data was last revised on 2018. Eosinophil pct 1.2 % [facility] Comment: Interpretive Data Percent cell count reference ranges are not reported, since discordance with absolute values may lead to misinterpretation of CBC data. Current Interpretive Data was last revised on 2018. Basophil pct 0.0 % [facility] Comment: Interpretive Data Percent cell count reference ranges are not reported, since discordance with absolute values may lead to misinterpretation of CBC data. Current Interpretive Data was last revised on 2018. Blood 05/22/2025 12:4 6 AM CDT 05/22/2025 12:56 AM CDT Sandy Meraz NP LAB BLOOD ORDERABLES Final R esult [facility] [place] [address] * (ABNORMAL) CBC with auto differential (05/22/2025 12:46 AM CDT) [facility] Signature WBC 1.71(L) 3.80 - 9.90 K/cumm Hgb 7.5(L) 13.0 - 17.5 g/dL [facility] Hct 22.8(L) 38.9 - 50.3 % [facility] Plt 39(C) 150 - 400 K/cumm [facility] Comment:Platelet count confi rmed by additional testing. Critical platelet count threshold determined by patient location: Outpatient:<50 K/cumm , Inpatient adults:<20 K/cumm , Inpatient pediatric:<25 K/cumm, BMT service:<10 K/cumm MPV Not Measured 9.1 - 12.3 fL [facility] RBC 2.51(L) 4.30 - 5.80 M/cumm [facility] MCV 90.8 81.3 - 96.4 fL [facility] MCH 29.9 27.1 - 33.3 pg [facility] MCHC 32.9 32.3 - 35.7 g/dL [facility] RDW CV 17.7(H) 11.1 - 14.9 % [facility] RDW SD 55.6(H) 35.7 - 48.1 fL [facility] NRBC abs 0.44(H) 0.00 - 0.01 K/cumm [facility] Blood 05/22/2025 12:4 6 AM CDT 05/22/2025 12:56 AM CDT us Sandy Meraz NP LAB BLOOD ORDERABLES Final R esult [facility] [place] [address] * (ABNORMAL) Uric acid (05/22/2025 12:46 AM CDT) Uric acid 2.5(L) 3.0 - 8.0 mg/dL Blood 05/22/2025 12:4 6 AM CDT 05/22/2025 12:56 AM CDT us Tania Lott MD PhD LAB BLOOD ORDERABLES Fin al Result Performing Organization Address City/[facility] Co de Phone Number [facility] Department [place] [address] * Phosphorus (05/22/2025 12:46 AM CDT) Pathologist [facility] Phosphorus, pl 2.9 2.3 - 4.5 mg/dL Blood 05/22/2025 12:4 6 AM CDT 05/22/2025 12:56 AM CDT us Tania Lott MD PhD LAB BLOOD ORDERABLES Fin al Result Performing Organization Address [facility] Co de Phone Number [facility] [place] [address] * Magnesium (05/22/2025 12:46 AM CDT) Pathologist [facility] Magnesium 1.8 1.4 - 2.5 mg/dL Blood 05/22/2025 12:4 6 AM CDT 05/22/2025 12:56 AM CDT us Sandy Meraz ACCOUNT STRATEGIST LAB BLOOD ORDERABLES Final R esult Performing Organization Address [facility] Co de Phone Number [facility] [place] [address] * (ABNORMAL) Lactate dehydrogenase (LD) (05/22/2025 12:46 AM CDT) Lactate dehydrogenase (LDH) 551(H) 100 - 250 Units/L Blood 05/22/2025 12:4 6 AM CDT 05/22/2025 12:56 AM CDT us Tania Lott MD PhD LAB BLOOD ORDERABLES Fin al Result Performing Organization Address [facility] Co de Phone Number [facility] [place] [address] * (ABNORMAL) Hepatic function panel (05/22/2025 12:46 AM CDT) Bilirubin, total 0.5 0.1 - 1.2 mg/dL Bilirubin, direct 0.2 0.1 - 0.3 mg/dL [facility] Protein, pl 5.5(L) 6.5 - 8.5 g/dL [facility] Albumin 3.3(L) 3.5 - 5.0 g/dL [facility] Alk phos 56 40 - 130 Units/L [facility] ALT 39 7 - 55 Units/L [facility] AST 26 10 - 50 Units/L [facility] Blood 05/22/2025 12:4 6 AM CDT 05/22/2025 12:56 AM CDT us Sandy Meraz ACCOUNT STRATEGIST LAB BLOOD ORDERABLES Final R esult Performing Organization Address [facility] de Phone Number [facility] Department [place] [address] * (ABNORMAL) Basic metabolic panel (05/22/2025 12:46 AM CDT) Sodium 141 135 - 145 mmol/L Potassium, pl 3.7 3.3 - 4.9 mmol/L [facility] Chloride 106 97 - 110 mmol/L [facility] CO2 28 22 - 32 mmol/L [facility] Anion gap 7 2 - 15 mmol/L [facility] BUN 16 6 - 25 mg/dL [facility] Creatinine 0.77(L) 0.80 - 1.30 mg/dL [facility] Glucose 106 70 - 199 mg/dL [facility] Comment: Interpretive Data Fasting glucose >/= 126 [...] 2022. Calcium 8.8 8.5 - 10.3 mg/dL [facility] Blood 05/22/2025 12:4 6 AM CDT 05/22/2025 12:56 AM CDT Tania Lott MD PhD LAB BLOOD ORDERABLES Fin al Result Performing Organization Address [facility] Co de Phone Number [facility] [place] [address] * POCT glucose (05/21/2025 7:26 PM CDT) Glucose, POC 119 70 - 199 mg/dL Blood 05/21/2025 7:26 PM CDT 05/21/2025 7:26 PM CDT Tania Lott MD PhD LAB POCT ORDERABLES - DE VICE Final Result Performing Organization Address City/[facility]/ZIP Co de Phone Number [facility] Department [place] [address] * POCT glucose (05/21/2025 2:23 PM CDT) Glucose, POC 142 70 - 199 mg/dL Blood 05/21/2025 2:23 PM CDT 05/21/2025 2:23 PM CDT Tania Lott MD PhD LAB POCT ORDERABLES - DE VICE Final Result Performing Organization Address City/[facility]/ZIP Co de Phone Number ANGELA DUNAWAY [facility] [place] [address] * POCT glucose (05/21/2025 9:45 AM CDT) Glucose, POC 100 70 - 199 mg/dL Blood 05/21/2025 9:45 AM CDT 05/21/2025 9:45 AM CDT us Tania Lott MD PhD LAB POCT ORDERABLES - DE VICE Final Result Performing Organization Address [facility] de Phone [facility] [place] [address] * MRI Brain W WO Contrast (05/21/2025 [...] history of acute myeloid leukemia. Evaluating for MDS MANAGER involvement. TECHNIQUE: Multiplanar multi-weighted MRI of the [...] history of acute myeloid leukemia. Evaluating for MDS MANAGER involvement. TECHNIQUE: Multiplanar multi-weighted MRI of the [...] signed by: Amish Kline M.D. Elisabeth Cortes ACCOUNT STRATEGIST IMG MRI PROCEDURES Final Resu lt * Transfuse RBC (05/21/2025 7:31 AM CDT) Blood Tania Lott MD PhD BLOOD TRANSFUSION ORDERA BLES Final Result Performing Organization Address [facility] Co de Phone Number [facility] [place] [address] * Prepare RBC: 1 Units (05/21/2025 5:02 AM CDT) Pathologist [facility] Product code [id number] Unit Number [id number] N [facility] Product Blood Type BPOS [facility] Dispense Status PRESUMED TRANSFUSED [facility] Blood Venous blood specimen / Unknown 05/21/2025 5:02 AM CDT 05/21/2025 5:02 AM CDT Narrative [facility] - 05/21/2025 8:01 PM CDT Are special requirements needed? (All products are leukoreduced and CMV- safe)- >Yes Date required:-[id number] Special Req 1:-Irradiated LRRBC # of [id number] Reasons:-BMT, Hgb <8 g/dL} Tania Lott MD PhD BLOOD BANK PRODUCT ORDER BIANKA Final Result Performing Organization Address [facility] de Phone Number [facility] Department [place] [address] * (ABNORMAL) Immature platelet fraction (05/21/2025 4:03 AM CDT) IPF 27.8(H) 1.6 - 10.1 % Blood 05/21/2025 4:03 AM CDT 05/21/2025 4:32 AM CDT us Sandy Meraz ACCOUNT STRATEGIST LAB BLOOD ORDERABLES Final R esult Performing Organization Address [facility] Co de Phone Number [facility] [place] [address] * eGFR (05/21/2025 4:03 AM CDT) eGFR [...] ORDERABLES Fin al Result Performing Organization Address City/[facility]/ZIP Co de Phone Number [facility] [place] [address] * (ABNORMAL) Differential, auto (05/21/2025 4:03 AM CDT) Pathologist [facility] Neutrophil abs 0.24(C) 1.50 - 6.50 K/cumm Comment:BMT patient, result not critical Imm gran abs 0.02 0.00 - 0.10 K/cumm [facility] Lymphocyte abs 1.03 0.80 - 3.30 K/cumm [facility] Monocyte abs 0.10(L) 0.20 - 0.80 K/cumm [facility] Eosinophil abs 0.07 0.00 - 0.50 K/cumm [facility] Basophil abs 0.01 0.00 - 0.10 K/cumm [facility] Neutrophil pct 16.2 % [facility] Comment: Interpretive Data Percent cell count reference ranges are not reported, since discordance with absolute values may lead to misinterpretation of CBC data. Current Interpretive Data was last revised on 2018. Imm gran pct 1.4 % [facility] Comment: Interpretive Data Percent cell count reference ranges are not reported, since discordance with absolute values may lead to misinterpretation of CBC data. Current Interpretive Data was last revised on 2018. Lymphocyte pct 70.1 % [facility] Comment: Interpretive Data Percent cell count reference ranges are not reported, since discordance with absolute values may lead to misinterpretation of CBC data. Current Interpretive Data was last revised on 2018. Monocyte pct 6.8 % [facility] Comment: Interpretive Data Percent cell count reference ranges are not reported, since discordance with absolute values may lead to misinterpretation of CBC data. Current Interpretive Data was last revised on 2018. Eosinophil pct 4.8 % [facility] Comment: Interpretive Data Percent cell count reference ranges are not reported, since discordance with absolute values may lead to misinterpretation of CBC data. Current Interpretive Data was last revised on 2018. Basophil pct 0.7 % [facility] Comment: Interpretive Data Percent cell count reference ranges are not reported, since discordance with absolute values may lead to misinterpretation of CBC data. Current Interpretive Data was last revised on 2018. Blood 05/21/2025 4:03 AM CDT 05/21/2025 4:29 AM CDT us Sandy Meraz NP LAB BLOOD ORDERABLES Final R esult [facility] [place] [address] * (ABNORMAL) CBC with auto differential (05/21/2025 4:03 AM CDT) Pathologist [facility] WBC 1.47(L) 3.80 - 9.90 K/cumm Hgb 7.4(L) 13.0 - 17.5 g/dL [facility] Hct 22.2(L) 38.9 - 50.3 % [facility] Plt 34(C) 150 - 400 K/cumm [facility] Comment:Platelet count confi rmed by additional testing. Critical platelet count threshold determined by patient location: Outpatient:<50 K/cumm , Inpatient adults:<20 K/cumm , Inpatient pediatric:<25 K/cumm, BMT service:<10 K/cumm MPV 13.0(H) 9.1 - 12.3 fL [facility] RBC 2.40(L) 4.30 - 5.80 M/cumm [facility] MCV 92.5 81.3 - 96.4 fL [facility] MCH 30.8 27.1 - 33.3 pg [facility] MCHC 33.3 32.3 - 35.7 g/dL [facility] RDW CV 17.2(H) 11.1 - 14.9 % [facility] RDW SD 55.4(H) 35.7 - 48.1 fL [facility] NRBC abs 0.14(H) 0.00 - 0.01 K/cumm [facility] Blood 05/21/2025 4:03 AM CDT 05/21/2025 4:29 AM CDT us Sandy Meraz NP LAB BLOOD ORDERABLES Final R esult [facility] [facility]ALTH[facility] [place] [address] * (ABNORMAL) Uric acid (05/21/2025 4:03 AM CDT) [facility] Uric acid 2.4(L) 3.0 - 8.0 mg/dL Blood 05/21/2025 4:03 AM CDT 05/21/2025 4:29 AM CDT Tania Lott MD PhD LAB BLOOD ORDERABLES Fin al Result Performing Organization Address [facility] de Phone Number [facility] [place] [address] * Phosphorus (05/21/2025 4:03 AM CDT) Phosphorus, pl 3.2 2.3 - 4.5 mg/dL Blood 05/21/2025 4:03 AM CDT 05/21/2025 4:29 AM CDT Tania Lott MD PhD LAB BLOOD ORDERABLES Fin al Result Performing Organization Address [facility] de Phone Number [facility] [place] [address] * Magnesium (05/21/2025 4:03 AM CDT) Magnesium 1.9 1.4 - 2.5 mg/dL Blood 05/21/2025 4:03 AM CDT 05/21/2025 4:29 AM CDT Sandy Meraz ACCOUNT STRATEGIST LAB BLOOD ORDERABLES Final R esult Performing Organization Address [facility] de Phone Number [facility] [place] [address] * (ABNORMAL) Lactate dehydrogenase (LD) (05/21/2025 4:03 AM CDT) Lactate dehydrogenase (LDH) 588(H) 100 - 250 Units/L Blood 05/21/2025 4:03 AM CDT 05/21/2025 4:29 AM CDT Tania Lott MD PhD LAB BLOOD ORDERABLES Fin al Result Performing Organization Address [facility] de Phone Number [facility] [place] [address] * (ABNORMAL) Hepatic function panel (05/21/2025 4:03 AM CDT) Bilirubin, total 0.7 0.1 - 1.2 mg/dL Bilirubin, direct 0.3 0.1 - 0.3 mg/dL [facility] Protein, pl 5.5(L) 6.5 - 8.5 g/dL [facility] Albumin 3.2(L) 3.5 - 5.0 g/dL [facility] Alk phos 53 40 - 130 Units/L [facility] ALT 38 7 - 55 Units/L [facility] AST 23 10 - 50 Units/L [facility] Blood 05/21/2025 4:03 AM CDT 05/21/2025 4:29 AM CDT Sandy Meraz NP LAB BLOOD ORDERABLES Final R esult Performing Organization Address [facility] de Phone Number [facility] Department [place] [address] * (ABNORMAL) Basic metabolic panel (05/21/2025 4:03 AM CDT) Pathologist [facility] Sodium 138 135 - 145 mmol/L Potassium, pl 3.7 3.3 - 4.9 mmol/L [facility] Chloride 104 97 - 110 mmol/L [facility] CO2 28 22 - 32 mmol/L [facility] Anion gap 6 2 - 15 mmol/L [facility] BUN 14 6 - 25 mg/dL [facility] Creatinine 0.71(L) 0.80 - 1.30 mg/dL [facility] Glucose 86 70 - 199 mg/dL [facility] Comment: Interpretive Data Fasting glucose >/= 126 [...] 2022. Calcium 8.2(L) 8.5 - 10.3 mg/dL [facility] Blood 05/21/2025 4:03 AM CDT 05/21/2025 4:29 AM CDT Tania Lott MD PhD LAB BLOOD ORDERABLES Fin al Result Performing Organization Address [facility]/ZIP Co de Phone Number [facility] [place] [address] * POCT glucose (05/20/2025 7:12 PM CDT) Glucose, POC 109 70 - 199 mg/dL Blood 05/20/2025 7:12 PM CDT 05/20/2025 7:12 PM CDT Tania Lott MD PhD LAB POCT ORDERABLES - DE VICE Final Result Performing Organization Address [facility] Co de Phone Number [facility] Department [place] [address] * (ABNORMAL) POCT glucose (05/20/2025 1:13 PM CDT) Glucose, POC 200(H) 70 - 199 mg/dL Blood 05/20/2025 1:13 PM CDT 05/20/2025 1:13 PM CDT Tania Lott MD PhD LAB POCT ORDERABLES - DE VICE Final Result Performing Organization Address [facility] Co de Phone Number [facility] [place] [address] * POCT glucose (05/20/2025 7:23 AM CDT) Pathologist [facility] Glucose, POC 98 70 - 199 mg/dL Blood 05/20/2025 7:23 AM CDT 05/20/2025 7:23 AM CDT us Tania Lott MD PhD LAB POCT ORDERABLES - DE VICE Final Result Performing Organization Address City/[facility]/ZIP Co de Phone Number [facility] [place] [address] * (ABNORMAL) Immature platelet fraction (05/20/2025 2:16 AM CDT) [facility] IPF 25.1(H) 1.6 - 10.1 % Blood 05/20/2025 2:16 AM CDT 05/20/2025 2:38 AM CDT us Sandy Meraz NP LAB BLOOD ORDERABLES Final R esult Performing Organization Address City/[facility]/ZIP Co de Phone Number [facility] [place] [address] * eGFR (05/20/2025 2:16 AM CDT) [facility] eGFR >90 >=60 mL/min/1. 73 m2 Comment: [...] DO LAB BLOOD ORDERABLES Final Resul t [facility] [place] [address] * (ABNORMAL) CBC with auto differential (05/20/2025 2:16 AM CDT) WBC 1.31(L) 3.80 - 9.90 K/cumm Hgb 8.2(L) 13.0 - 17.5 g/dL [facility] Hct 24.1(L) 38.9 - 50.3 % [facility] Plt 27(C) 150 - 400 K/cumm [facility] Comment:Platelet count confi rmed by additional testing. Critical platelet count threshold determined by patient location: Outpatient:<50 K/cumm , Inpatient adults:<20 K/cumm , Inpatient pediatric:<25 K/cumm, BMT service:<10 K/cumm MPV Not Measured 9.1 - 12.3 fL [facility] RBC 2.68(L) 4.30 - 5.80 M/cumm [facility] MCV 89.9 81.3 - 96.4 fL [facility] MCH 30.6 27.1 - 33.3 pg [facility] MCHC 34.0 32.3 - 35.7 g/dL [facility] RDW CV 17.5(H) 11.1 - 14.9 % [facility] RDW SD 55.9(H) 35.7 - 48.1 fL [facility] NRBC abs 0.08(H) 0.00 - 0.01 K/cumm [facility] Blood 05/20/2025 2:16 AM CDT 05/20/2025 2:34 AM CDT us Sandy Poornima Kt ACCOUNT STRATEGIST LAB BLOOD ORDERABLES Edited Result - Final [facility] [place] [address] * (ABNORMAL) Manual Differential (05/20/2025 2:16 AM CDT) Differential Manual Cells Counted 129 [facility] Neutrophil abs 0.11(C) 1.50 - 6.50 K/cumm [facility] Comment:BMT patient, result not critical Lymphocyte abs 1.07 0.80 - 3.30 K/cumm [facility] Monocyte abs 0.02(L) 0.20 - 0.80 K/cumm [facility] Eosinophil abs 0.02 0.00 - 0.50 K/cumm [facility] Basophil abs 0.06 0.00 - 0.10 K/cumm [facility] Neutrophil pct 8.5 % [facility] Comment: Interpretive Data Percent cell count reference ranges are not reported, since discordance with absolute values may lead to misinterpretation of CBC data. Current Interpretive Data was last revised on 2018. Lymphocyte pct 82.0 % [facility] Comment: Interpretive Data Percent cell count reference ranges are not reported, since discordance with absolute values may lead to misinterpretation of CBC data. Current Interpretive Data was last revised on 2018. Monocyte pct 1.6 % [facility] Comment: Interpretive Data Percent cell count reference ranges are not reported, since discordance with absolute values may lead to misinterpretation of CBC data. Current Interpretive Data was last revised on 2018. Eosinophil pct 1.6 % [facility] Comment: Interpretive Data Percent cell count reference ranges are not reported, since discordance with absolute values may lead to misinterpretation of CBC data. Current Interpretive Data was last revised on 2018. Basophil pct 4.7 % [facility] Comment: Interpretive Data Percent cell count reference ranges are not reported, since discordance with absolute values may lead to misinterpretation of CBC data. Current Interpretive Data was last revised on 2018. Blast pct 1.6(C) 0.0 - 0.0 [facility] Comment:Critical value greene d within last 30 days. Blood 05/20/2025 2:16 AM CDT 05/20/2025 2:38 AM CDT Sandy Meraz ACCOUNT STRATEGIST LAB BLOOD ORDERABLES Final R esult Performing Organization Address [facility] Co de Phone Number [facility] [place] [address] * Type and screen (05/20/2025 2:16 AM CDT) ABO Rh B Positive Benjy, indirect Negative [facility] Blood 05/20/2025 2:16 AM CDT 05/20/2025 2:45 AM CDT Narrative [facility] - 05/20/2025 3:57 AM CDT Has the patient had Daratumumab or Isatuximab in the past 6 months?->Unknown Erika Chandler DO LAB BLOOD BANK TEST ORDERABLES F inal Result Performing Organization Address [facility] [place] [address] * (ABNORMAL) Uric acid (05/20/2025 2:16 AM CDT) Pathologist [facility] Uric acid 2.3(L) 3.0 - 8.0 mg/dL Blood 05/20/2025 2:16 AM CDT 05/20/2025 2:34 AM CDT Tania Lott MD PhD LAB BLOOD ORDERABLES Fin al Result Performing Organization Address City/[facility] [place] [address] * Phosphorus (05/20/2025 2:16 AM CDT) Phosphorus, pl 2.8 2.3 - 4.5 mg/dL Blood 05/20/2025 2:16 AM CDT 05/20/2025 2:34 AM CDT Tania Lott MD PhD LAB BLOOD ORDERABLES Fin al Result Performing Organization Address [facility] de Phone Number [facility] [place] [address] * Magnesium (05/20/2025 2:16 AM CDT) Magnesium 1.9 1.4 - 2.5 mg/dL Blood 05/20/2025 2:16 AM CDT 05/20/2025 2:34 AM CDT Sandy Meraz ACCOUNT STRATEGIST LAB BLOOD ORDERABLES Final R esult Performing Organization Address [facility] de Phone Number [facility] [place] [address] * (ABNORMAL) Lactate dehydrogenase (LD) (05/20/2025 2:16 AM CDT) Lactate dehydrogenase (LDH) 714(H) 100 - 250 Units/L Blood 05/20/2025 2:16 AM CDT 05/20/2025 2:34 AM CDT Tania Lott MD PhD LAB BLOOD ORDERABLES Fin al Result Performing Organization Address [facility] de Phone Number [facility] [place] [address] * Bilirubin, direct (05/20/2025 2:16 AM CDT) Bilirubin, direct 0.3 0.1 - 0.3 mg/dL Blood 05/20/2025 2:16 AM CDT 05/20/2025 2:34 AM CDT us Erika Chandler LAB BLOOD ORDERABLES Final Resul t [facility] [place] [address] * (ABNORMAL) Comprehensive metabolic panel (05/20/2025 2:16 AM CDT) Sodium 139 135 - 145 mmol/L Potassium, pl 3.8 3.3 - 4.9 mmol/L [facility] Chloride 105 97 - 110 mmol/L [facility] CO2 28 22 - 32 mmol/L [facility] Anion gap 6 2 - 15 mmol/L [facility] BUN 17 6 - 25 mg/dL [facility] Creatinine 0.72(L) 0.80 - 1.30 mg/dL [facility] Glucose 125 70 - 199 mg/dL [facility] Comment: Interpretive Data Fasting glucose >/= 126 [...] 2022. Calcium 8.6 8.5 - 10.3 mg/dL [facility] Bilirubin, total 0.6 0.1 - 1.2 mg/dL [facility] Protein, pl 5.6(L) 6.5 - 8.5 g/dL [facility] Albumin 3.0(L) 3.5 - 5.0 g/dL [facility] Alk phos 67 40 - 130 Units/L [facility] ALT 36 7 - 55 Units/L [facility] AST 20 10 - 50 Units/L [facility] Blood 05/20/2025 2:16 AM CDT 05/20/2025 2:34 AM CDT Narrative [facility] - 05/20/2025 3:07 AM CDT Saturday and only. Morning draw. Erika Chandelr DO LAB BLOOD ORDERABLES Final Resul t Performing Organization Address [facility] de Phone Number [facility] [place] [address] * POCT glucose (05/19/2025 6:48 PM CDT) Glucose, POC 145 70 - 199 mg/dL Blood 05/19/2025 6:48 PM CDT 05/19/2025 6:48 PM CDT us Tania Lott MD PhD LAB POCT ORDERABLES - DE VICE Final Result Performing Organization Address [facility] Phone Number [facility] [place] [address] * POCT glucose (05/19/2025 1:23 PM CDT) Glucose, POC 162 70 - 199 mg/dL Blood 05/19/2025 1:23 PM CDT 05/19/2025 1:23 PM CDT us Tania Lott MD PhD LAB POCT ORDERABLES - DE VICE Final Result Performing Organization Address [facility] de Phone Number [facility] [place] [address] * POCT glucose (05/19/2025 7:23 AM CDT) Glucose, POC 102 70 - 199 mg/dL Blood 05/19/2025 7:23 AM CDT 05/19/2025 7:23 AM CDT us Tania Lott MD PhD LAB POCT ORDERABLES - DE VICE Final Result Performing Organization Address [facility] de Phone Number [facility] [place] [address] * (ABNORMAL) Immature platelet fraction (05/19/2025 12:54 AM CDT) IPF 24.3(H) 1.6 - 10.1 % Blood 05/19/2025 12:5 4 AM CDT 05/19/2025 1:08 AM CDT us Sandy Meraz ACCOUNT STRATEGIST LAB BLOOD ORDERABLES Final R esult Performing Organization Address [facility] de Phone Number [facility] [place] [address] * eGFR (05/19/2025 12:54 AM CDT) eGFR [...] PhD LAB BLOOD ORDERABLES Fin al Result [facility] [place] [address] * (ABNORMAL) CBC with auto differential (05/19/2025 12:54 AM CDT) [facility] WBC 1.33(L) 3.80 - 9.90 K/cumm Hgb 8.1(L) 13.0 - 17.5 g/dL [facility] Hct 23.6(L) 38.9 - 50.3 % [facility] Plt 18(C) 150 - 400 K/cumm [facility] Comment:Platelet count confi rmed by additional testing. Critical platelet count threshold determined by patient location: Outpatient:<50 K/cumm , Inpatient adults:<20 K/cumm , Inpatient pediatric:<25 K/cumm, BMT service:<10 K/cumm MPV Not Measured 9.1 - 12.3 fL [facility] RBC 2.67(L) 4.30 - 5.80 M/cumm [facility] MCV 88.4 81.3 - 96.4 fL [facility] MCH 30.3 27.1 - 33.3 pg [facility] MCHC 34.3 32.3 - 35.7 g/dL [facility] RDW CV 17.9(H) 11.1 - 14.9 % [facility] RDW SD 54.7(H) 35.7 - 48.1 fL [facility] NRBC abs 0.08(H) 0.00 - 0.01 K/cumm [facility] Blood 05/19/2025 12:5 4 AM CDT 05/19/2025 1:04 AM CDT us Sandy Meraz NP LAB BLOOD ORDERABLES Final R esult [facility] [place] [address] * (ABNORMAL) Manual Differential (05/19/2025 12:54 AM CDT) [facility] Differential Manual Cells Counted 112 [facility] Neutrophil abs 0.26(C) 1.50 - 6.50 K/cumm [facility] Comment:BMT patient, result not critical Lymphocyte abs 0.96 0.80 - 3.30 K/cumm [facility] Monocyte abs 0.01(L) 0.20 - 0.80 K/cumm [facility] Basophil abs 0.07 0.00 - 0.10 K/cumm [facility] Neutrophil pct 19.6 % [facility] Comment: Interpretive Data Percent cell count reference ranges are not reported, since discordance with absolute values may lead to misinterpretation of CBC data. Current Interpretive Data was last revised on 2018. Lymphocyte pct 72.3 % [facility] Comment: Interpretive Data Percent cell count reference ranges are not reported, since discordance with absolute values may lead to misinterpretation of CBC data. Current Interpretive Data was last revised on 2018. Monocyte pct 0.9 % [facility] Comment: Interpretive Data Percent cell count reference ranges are not reported, since discordance with absolute values may lead to misinterpretation of CBC data. Current Interpretive Data was last revised on 2018. Basophil pct 5.4 % [facility] Comment: Interpretive Data Percent cell count reference ranges are not reported, since discordance with absolute values may lead to misinterpretation of CBC data. Current Interpretive Data was last revised on 2018. Blast pct 1.8(C) 0.0 - 0.0 [facility] Comment:Critical value greene d within last 30 days. Smudge cells, qual Present(A) [facility] RBC morphology Present(A) [facility] Anisocytosis Slight(A) [facility] Macrocytes 3-7/HPF(A) [facility] Platelet estimate Decreased( A) [facility] Blood 05/19/2025 12:5 4 AM CDT 05/19/2025 1:08 AM CDT us Sandy Meraz NP LAB BLOOD ORDERABLES Final R esult [facility] [place] [address] * (ABNORMAL) Uric acid (05/19/2025 12:54 AM CDT) Pathologist [facility] Uric acid 2.3(L) 3.0 - 8.0 mg/dL Blood 05/19/2025 12:5 4 AM CDT 05/19/2025 1:03 AM CDT us Tania Lott MD PhD LAB BLOOD ORDERABLES Fin al Result Performing Organization Address City/[facility] Co de Phone Number [facility] [place] [address] * Phosphorus (05/19/2025 12:54 AM CDT) Pathologist [facility] Phosphorus, pl 3.2 2.3 - 4.5 mg/dL Blood 05/19/2025 12:5 4 AM CDT 05/19/2025 1:03 AM CDT us Tania Lott MD PhD LAB BLOOD ORDERABLES Fin al Result Performing Organization Address [facility] Co de Phone Number [facility] Department [place] [address] * Magnesium (05/19/2025 12:54 AM CDT) [facility] Magnesium 1.9 1.4 - 2.5 mg/dL Blood 05/19/2025 12:5 4 AM CDT 05/19/2025 1:03 AM CDT us Sandy Meraz ACCOUNT STRATEGIST LAB BLOOD ORDERABLES Final R esult Performing Organization Address [facility] Co de Phone Number [facility] [place] [address] * (ABNORMAL) Lactate dehydrogenase (LD) (05/19/2025 12:54 AM CDT) [facility] Lactate dehydrogenase (LDH) 842(H) 100 - 250 Units/L Blood 05/19/2025 12:5 4 AM CDT 05/19/2025 1:03 AM CDT us Tania Lott MD PhD LAB BLOOD ORDERABLES Fin al Result Performing Organization Address [facility] de Phone Number [facility] [place] [address] * (ABNORMAL) Hepatic function panel (05/19/2025 12:54 AM CDT) Bilirubin, total 0.7 0.1 - 1.2 mg/dL Bilirubin, direct 0.3 0.1 - 0.3 mg/dL [facility] Protein, pl 5.3(L) 6.5 - 8.5 g/dL [facility] Albumin 2.9(L) 3.5 - 5.0 g/dL [facility] Alk phos 64 40 - 130 Units/L [facility] ALT 35 7 - 55 Units/L [facility] AST 24 10 - 50 Units/L [facility] Blood 05/19/2025 12:5 4 AM CDT 05/19/2025 1:03 AM CDT us Sandy Meraz ACCOUNT STRATEGIST LAB BLOOD ORDERABLES Final R esult Performing Organization Address [facility] Co de Phone Number [facility] [place] [address] * (ABNORMAL) Basic metabolic panel (05/19/2025 12:54 AM CDT) Sodium 139 135 - 145 mmol/L Potassium, pl 4.0 3.3 - 4.9 mmol/L [facility] Chloride 106 97 - 110 mmol/L [facility] CO2 28 22 - 32 mmol/L [facility] Anion gap 5 2 - 15 mmol/L [facility] BUN 15 6 - 25 mg/dL [facility] Creatinine 0.65(L) 0.80 - 1.30 mg/dL [facility] Glucose 115 70 - 199 mg/dL [facility] Comment: Interpretive Data Fasting glucose >/= 126 [...] 2022. Calcium 8.6 8.5 - 10.3 mg/dL [facility] Blood 05/19/2025 12:5 4 AM CDT 05/19/2025 1:03 AM CDT Tania Lott MD PhD LAB BLOOD ORDERABLES Fin al Result Performing Organization Address City/[facility]/ZIP Co de Phone Number [facility] [place] [address] * POCT glucose (05/18/2025 5:12 PM CDT) Glucose, POC 111 70 - 199 mg/dL Blood 05/18/2025 5:12 PM CDT 05/18/2025 5:12 PM CDT Tania Lott MD PhD LAB POCT ORDERABLES - DE VICE Final Result Performing Organization Address [facility]/ZIP Co de Phone Number [facility] [place] [address] * Urinalysis reflex to microscopic (05/18/2025 2:39 PM CDT) Color, ur Yellow Yellow Clarity, ur Clear Clear [facility] Specific gravity, ur 1.023 1.003 - 1.030 [facility] pH, urine 6.5 [facility] Comment: Interpretive Data U rine pH is affected by diet, medications, systemic acid-base disturbances, and renal tubular function. pH may affect urinary stone formation. For example, urine pH below 6.0 may help reduce the tendency for calcium phosphate stones and pH greater than 6.0 may reduce the tendency for uric acid stone formation. Source: [facility] Current Interpretive Data was last revised on 2017 Protein, ur ql Trace Negative [facility] Glucose, ur ql Negative Negative [facility] Ketones, ur Negative Negative [facility] Bilirubin, ur Negative Negative [facility] Blood, ur Negative Negative [facility] Urobilinogen, ur <2.0 <2.0 mg/dL [facility] Nitrite, ur Negative Negative [facility] Leukocyte esterase, ur Negative Negative [facility] UA reflex comment Reflex conditions for microscopic UA not met. [facility] Urine 05/18/2025 2:39 PM CDT 05/18/2025 2:47 PM CDT Tania Lott MD PhD LAB URINE ORDERABLES Fin al Result Performing Organization Address [facility] Co de Phone Number [facility] [place] [address] * Urea nitrogen, urine, random (05/18/2025 2:39 PM CDT) Urea nitrogen, ur 847 mg/dL Comment: Interpretive Data No reference range established. Current interpretive data was last revised 2019. Urine 05/18/2025 2:39 PM CDT 05/18/2025 3:09 PM CDT Tania Lott MD PhD LAB URINE ORDERABLES Fin al Result Performing Organization Address City/[facility] Co de Phone Number [facility] [place] [address] * Sodium, urine, random (05/18/2025 2:39 PM CDT) Sodium, ur 144 mmol/L Comment: Interpretive Data No reference range established. Current interpretive data was last revised 2019. Urine 05/18/2025 2:39 PM CDT 05/18/2025 3:09 PM CDT Tania Lott MD PhD LAB URINE ORDERABLES Fin al Result Performing Organization Address [facility] Co de Phone Number [facility] [place] [address] * Creatinine, urine, random (05/18/2025 2:39 PM CDT) Creatinine Ur 81.5 mg/dL Comment: Interpretive Data No reference range established. Current interpretive data was last revised 2019. Urine 05/18/2025 2:39 PM CDT 05/18/2025 3:09 PM CDT Tania Lott MD PhD LAB URINE ORDERABLES Fin al Result Performing Organization Address [facility] Phone Number [facility] [place] [address] * POCT glucose (05/18/2025 1:59 PM CDT) Glucose, POC 159 70 - 199 mg/dL Blood 05/18/2025 1:59 PM CDT 05/18/2025 1:59 PM CDT Tania Lott MD PhD LAB POCT ORDERABLES - DE VICE Final Result Performing Organization Address [facility] de Phone Number [facility] [place] [address] * US Vein Duplex Lower Extremity Bilateral Complete (05/18/2025 11:52 AM CDT) Anatomical Region Laterality Modality Vascular Bilateral Ultrasound 05/18/2025 10:1 7 AM CDT Narrative 05/18/2025 10:53 PM CDT [facility] - Department of Vascular Surgery, Vascular Laboratory [address] [place] [id number] Lower Extremity Venous Ultrasound Report Patient Name: TAMMY WRIGHT : 1965 (60y 1m) Study Date: 05/18/2025 10:17:02 AM Gender: M Tech: Location: [id number] Ref Provider: TANIA LOTT Quality: Adequate Order [...] LE edema + erythema - FINDINGS: Performing Wrist Liner: Amena Reed RVT. Bilateral: Venous Doppler signals [...] Procedure Note Renzo Simon MD - 05/18/2025 [facility] - Department of Vascular Surgery,Vascular Laboratory [address] [place] [address] Lower Extremity Venous Ultrasound Report Patient Name: TAMMY WRIGHT : 1965 (60y 1m) Study Date: 05/18/2025 10:17:02 AM Gender: M Tech: Location: [id number] Ref Provider: TANIA LOTT Quality: Adequate Order Provider: TANIA LOTT PROCEDURES: Vascular Report: Venous Duplex imaging was performed bilaterally in the lower extremities.The common femoral, femoral, popliteal, posterior tibial, peroneal veins wereevaluated for patency, spontaneity and phasicity with Doppler, compression and augmentationmaneuvers. Great saphenous vein proximal at the junction was evaluated with compressionmaneuvers. INDICATIONS: asymmetric R>L LE edema + erythema - FINDINGS: Performing Wrist Liner: Amena Reed RVT. Bilateral: Venous Doppler signals [...] above. Electronically Signed By: Renzo Simon MD [facility] 05/18/2025 10:06:52 PM CDT Tania Lott MD PhD IMG US PROCEDURES Final Result * POCT glucose (05/18/2025 8:39 AM CDT) Glucose, POC 145 70 - 199 mg/dL Blood 05/18/2025 8:39 AM CDT 05/18/2025 8:39 AM CDT Tania Lott MD PhD LAB POCT ORDERABLES - DE VICE Final Result ANGELA MOREAU [facility] [place] [address] * (ABNORMAL) Immature platelet fraction (05/18/2025 12:40 AM CDT) IPF 20.6(H) 1.6 - 10.1 % Blood 05/18/2025 12:4 0 AM CDT 05/18/2025 1:34 AM CDT us Sandy Meraz ACCOUNT STRATEGIST LAB BLOOD ORDERABLES Final R esult Performing Organization Address [facility] Co de Phone Number ANGELA [facility] [place] [address] * eGFR (05/18/2025 12:40 AM CDT) eGFR [...] ORDERABLES Fin al Result Performing Organization Address City/[facility]/ZIP Co de Phone Number ANGELA [facility] Department [place] [address] * (ABNORMAL) Differential, auto (05/18/2025 12:40 AM CDT) Neutrophil abs 0.34(C) 1.50 - 6.50 K/cumm Comment:BMT patient, result not critical Imm gran abs 0.07 0.00 - 0.10 K/cumm [facility] Lymphocyte abs 1.05 0.80 - 3.30 K/cumm [facility] Monocyte abs 0.12(L) 0.20 - 0.80 K/cumm [facility] Eosinophil abs 0.01 0.00 - 0.50 K/cumm [facility] Basophil abs 0.00 0.00 - 0.10 K/cumm [facility] Neutrophil pct 21.5 % [facility] Comment: Interpretive Data Percent cell count reference ranges are not reported, since discordance with absolute values may lead to misinterpretation of CBC data. Current Interpretive Data was last revised on 2018. Imm gran pct 4.4 % [facility] Comment: Interpretive Data Percent cell count reference ranges are not reported, since discordance with absolute values may lead to misinterpretation of CBC data. Current Interpretive Data was last revised on 2018. Lymphocyte pct 66.0 % [facility] Comment: Interpretive Data Percent cell count reference ranges are not reported, since discordance with absolute values may lead to misinterpretation of CBC data. Current Interpretive Data was last revised on 2018. Monocyte pct 7.5 % [facility] Comment: Interpretive Data Percent cell count reference ranges are not reported, since discordance with absolute values may lead to misinterpretation of CBC data. Current Interpretive Data was last revised on 2018. Eosinophil pct 0.6 % [facility] Comment: Interpretive Data Percent cell count reference ranges are not reported, since discordance with absolute values may lead to misinterpretation of CBC data. Current Interpretive Data was last revised on 2018. Basophil pct 0.0 % [facility] Comment: Interpretive Data Percent cell count reference ranges are not reported, since discordance with absolute values may lead to misinterpretation of CBC data. Current Interpretive Data was last revised on 2018. Blood 05/18/2025 12:4 0 AM CDT 05/18/2025 1:21 AM CDT Sandy Meraz NP LAB BLOOD ORDERABLES Final R esult [facility] Department [place] [address] * (ABNORMAL) CBC with auto differential (05/18/2025 12:40 AM CDT) [facility] WBC 1.63(L) 3.80 - 9.90 K/cumm Hgb 8.2(L) 13.0 - 17.5 g/dL [facility] Hct 25.1(L) 38.9 - 50.3 % [facility] Plt 12(C) 150 - 400 K/cumm [facility] Comment:Platelet count confi rmed by additional testing. Critical platelet count threshold determined by patient location: Outpatient:<50 K/cumm , Inpatient adults:<20 K/cumm , Inpatient pediatric:<25 K/cumm, BMT service:<10 K/cumm MPV Not Measured 9.1 - 12.3 fL [facility] RBC 2.74(L) 4.30 - 5.80 M/cumm [facility] MCV 91.6 81.3 - 96.4 fL [facility] MCH 29.9 27.1 - 33.3 pg [facility] MCHC 32.7 32.3 - 35.7 g/dL [facility] RDW CV 18.9(H) 11.1 - 14.9 % [facility] RDW SD 60.8(H) 35.7 - 48.1 fL [facility] NRBC abs 0.24(H) 0.00 - 0.01 K/cumm [facility] Blood 05/18/2025 12:4 0 AM CDT 05/18/2025 1:21 AM CDT us Sandy Meraz NP LAB BLOOD ORDERABLES Final R esult [facility] [place] [address] * (ABNORMAL) Uric acid (05/18/2025 12:40 AM CDT) [facility] Uric acid 2.3(L) 3.0 - 8.0 mg/dL Blood 05/18/2025 12:4 0 AM CDT 05/18/2025 1:21 AM CDT Tania Lott MD PhD LAB BLOOD ORDERABLES Fin al Result Performing Organization Address [facility] de Phone Number [facility] [place] [address] * Phosphorus (05/18/2025 12:40 AM CDT) Pathologist [facility] Phosphorus, pl 3.3 2.3 - 4.5 mg/dL Blood 05/18/2025 12:4 0 AM CDT 05/18/2025 1:21 AM CDT Tania Lott MD PhD LAB BLOOD ORDERABLES Fin al Result Performing Organization Address [facility] de Phone Number [facility] Department [place] [address] * Magnesium (05/18/2025 12:40 AM CDT) [facility] Magnesium 1.9 1.4 - 2.5 mg/dL Blood 05/18/2025 12:4 0 AM CDT 05/18/2025 1:21 AM CDT us Sandy Meraz ACCOUNT STRATEGIST LAB BLOOD ORDERABLES Final R esult Performing Organization Address [facility] de Phone Number [facility] [place] [address] * (ABNORMAL) Lactate dehydrogenase (LD) (05/18/2025 12:40 AM CDT) Pathologist [facility] Lactate dehydrogenase (LDH) 1,092(H) 100 - 250 Units/L Blood 05/18/2025 12:4 0 AM CDT 05/18/2025 1:21 AM CDT us Tania Lott MD PhD LAB BLOOD ORDERABLES Fin al Result Performing Organization Address [facility] Co de Phone Number [facility] [place] [address] * (ABNORMAL) Hepatic function panel (05/18/2025 12:40 AM CDT) [facility] Bilirubin, total 0.8 0.1 - 1.2 mg/dL Bilirubin, direct 0.3 0.1 - 0.3 mg/dL [facility] Protein, pl 5.3(L) 6.5 - 8.5 g/dL [facility] Albumin 2.9(L) 3.5 - 5.0 g/dL [facility] Alk phos 51 40 - 130 Units/L [facility] ALT 28 7 - 55 Units/L [facility] AST 25 10 - 50 Units/L [facility] Blood 05/18/2025 12:4 0 AM CDT 05/18/2025 1:21 AM CDT us Sandy Meraz ACCOUNT STRATEGIST LAB BLOOD ORDERABLES Final R esult Performing Organization Address [facility] de Phone Number [facility] Department [place] [address] * Basic metabolic panel (05/18/2025 12:40 AM CDT) [facility] Sodium 138 135 - 145 mmol/L Potassium, pl 4.1 3.3 - 4.9 mmol/L [facility] Chloride 105 97 - 110 mmol/L [facility] CO2 30 22 - 32 mmol/L [facility] Anion gap 3 2 - 15 mmol/L [facility] BUN 20 6 - 25 mg/dL [facility] Creatinine 0.80 0.80 - 1.30 mg/dL [facility] Glucose 105 70 - 199 mg/dL [facility] Comment: Interpretive Data Fasting glucose >/= 126 [...] 8.5 8.5 - 10.3 mg/dL [facility] Blood 05/18/2025 12:4 0 AM CDT 05/18/2025 1:21 AM CDT Tania Lott MD PhD LAB BLOOD ORDERABLES Fin al Result Performing Organization Address [facility] de Phone Number [facility] Department [place] [address] * POCT glucose (05/17/2025 8:34 PM CDT) Glucose, POC 141 70 - 199 mg/dL Blood 05/17/2025 8:34 PM CDT 05/17/2025 8:34 PM CDT Tania Lott MD PhD LAB POCT ORDERABLES - DE VICE Final Result Performing Organization Address [facility] de Phone Number [facility] Department [place] [address] * POCT glucose (05/17/2025 5:25 PM CDT) Glucose, POC 117 70 - 199 mg/dL Blood 05/17/2025 5:25 PM CDT 05/17/2025 5:25 PM CDT Tania Lott MD PhD LAB POCT ORDERABLES - DE VICE Final Result Performing Organization Address [facility] de Phone Number [facility] [place] [address] * MRI Safety, Technical Assessment, 15 min [...] details regarding the evaluation. us Elisabeth Cortes ACCOUNT STRATEGIST IMG MRI PROCEDURES Final Resu lt Performing Organization Address City/[facility] Co de Phone Number [email or web address] * POCT glucose (05/17/2025 11:39 AM CDT) Glucose, POC 144 70 - 199 mg/dL Blood 05/17/2025 11:3 9 AM CDT 05/17/2025 11:39 AM CDT us Tania Lott MD PhD LAB POCT ORDERABLES - DE VICE Final Result Performing Organization Address [facility] Co de Phone Number ANGELA [facility] [place] [address] * POCT glucose (05/17/2025 11:14 AM CDT) Glucose, POC 188 70 - 199 mg/dL Blood 05/17/2025 11:1 4 AM CDT 05/17/2025 11:14 AM CDT us Tania Lott MD PhD LAB POCT ORDERABLES - DE VICE Final Result Performing Organization Address [facility] Co de Phone Number ANGELA [facility] [place] [address] * POCT glucose (05/17/2025 7:55 AM CDT) Pathologist [facility] Glucose, POC 171 70 - 199 mg/dL Blood 05/17/2025 7:55 AM CDT 05/17/2025 7:55 AM CDT Tania Lott MD PhD LAB POCT ORDERABLES - DE VICE Final Result Performing Organization Address [facility] Co mi Phone Number [facility] Department [place] [address] * (ABNORMAL) Immature platelet fraction (05/17/2025 12:30 AM CDT) Pathologist [facility] IPF 15.6(H) 1.6 - 10.1 % Blood 05/17/2025 12:3 0 AM CDT 05/17/2025 1:05 AM CDT Tania Lott MD PhD LAB BLOOD ORDERABLES Fin al Result Performing Organization Address [facility] Co de Phone Number [facility] [place] [address] * eGFR (05/17/2025 12:30 AM CDT) [facility] eGFR >90 >=60 mL/min/1. 73 m2 Comment: [...] BLOOD ORDERABLES Fin al Result [facility] [place] [address] * (ABNORMAL) CBC with auto differential (05/17/2025 12:30 AM CDT) Pathologist [facility] WBC 1.48(L) 3.80 - 9.90 K/cumm Hgb 8.0(L) 13.0 - 17.5 g/dL [facility] Hct 23.7(L) 38.9 - 50.3 % [facility] Plt 10(C) 150 - 400 K/cumm [facility] Comment:Platelet count confi rmed by additional testing. Critical platelet count threshold determined by patient location: Outpatient:<50 K/cumm , Inpatient adults:<20 K/cumm , Inpatient pediatric:<25 K/cumm, BMT service:<10 K/cumm MPV 11.5 9.1 - 12.3 fL [facility] RBC 2.64(L) 4.30 - 5.80 M/cumm [facility] MCV 89.8 81.3 - 96.4 fL [facility] MCH 30.3 27.1 - 33.3 pg [facility] MCHC 33.8 32.3 - 35.7 g/dL [facility] RDW CV 19.9(H) 11.1 - 14.9 % [facility] RDW SD 61.8(H) 35.7 - 48.1 fL [facility] NRBC abs 1.02(H) 0.00 - 0.01 K/cumm [facility] Blood 05/17/2025 12:3 0 AM CDT 05/17/2025 12:55 AM CDT us Tania Lott MD PhD LAB BLOOD ORDERABLES Fin al Result [facility] [place] [address] * (ABNORMAL) Manual Differential (05/17/2025 12:30 AM CDT) Differential Manual [facility] Neutrophil abs 0.40(C) 1.50 - 6.50 K/cumm [facility] Comment:BMT patient, result not critical Imm gran abs 0.03 0.00 - 0.10 K/cumm [facility] Lymphocyte abs 0.97 0.80 - 3.30 K/cumm [facility] Monocyte abs 0.01(L) 0.20 - 0.80 K/cumm [facility] Basophil abs 0.01 0.00 - 0.10 K/cumm [facility] Neutrophil pct 27.0 % [facility] Comment: Interpretive Data Percent cell count reference ranges are not reported, since discordance with absolute values may lead to misinterpretation of CBC data. Current Interpretive Data was last revised on 2018. Lymphocyte pct 65.8 % [facility] Comment: Interpretive Data Percent cell count reference ranges are not reported, since discordance with absolute values may lead to misinterpretation of CBC data. Current Interpretive Data was last revised on 2018. Monocyte pct 0.9 % [facility] Comment: Interpretive Data Percent cell count reference ranges are not reported, since discordance with absolute values may lead to misinterpretation of CBC data. Current Interpretive Data was last revised on 2018. Basophil pct 0.9 % [facility] Comment: Interpretive Data Percent cell count reference ranges are not reported, since discordance with absolute values may lead to misinterpretation of CBC data. Current Interpretive Data was last revised on 2018. Myelocyte pct 1.8(H) 0.0 - 0.0 % [facility] Blast pct 3.6(C) 0.0 - 0.0 [facility] Comment:Critical value greene d within last 30 days. Blood 05/17/2025 12:3 0 AM CDT 05/17/2025 1:05 AM CDT Tania Lott MD PhD LAB BLOOD ORDERABLES Fin al Result Performing Organization Address [facility] de Phone Number [facility] [place] [address] * aPTT (05/17/2025 12:30 AM CDT) aPTT [...] ORDERABLES Fin al Result Performing Organization Address [facility] de Phone Number [facility] [place] [address] * Protime-INR (05/17/2025 12:30 AM CDT) PT 13.4 10.2 - 13.5 sec INR 1.19 0.90 - 1.20 [facility] Comment: Interpretive data Oral anticoagulant therapeutic ranges: [...] ORDERABLES Fin al Result Performing Organization Address [facility] de Phone Number [facility] Department [place] [address] * Type and screen (05/17/2025 12:30 AM CDT) ABO Rh B Positive Benjy, indirect Negative [facility] Blood 05/17/2025 12:3 0 AM CDT 05/17/2025 1:03 AM CDT Narrative [facility] - 05/17/2025 1:55 AM CDT Has the patient had Daratumumab or Isatuximab in the past 6 months?->Unknown Erika Chandler DO LAB BLOOD BANK TEST ORDERABLES F inal Result Performing Organization Address [facility] de Phone Number [facility] Department [place] [address] * (ABNORMAL) Uric acid (05/17/2025 12:30 AM CDT) Pathologist [facility] Uric acid 2.4(L) 3.0 - 8.0 mg/dL Blood 05/17/2025 12:3 0 AM CDT 05/17/2025 12:55 AM CDT Tania Lott MD PhD LAB BLOOD ORDERABLES Fin al Result Performing Organization Address City/[facility] Co de Phone Number [facility] Department [place] [address] * Phosphorus (05/17/2025 12:30 AM CDT) Phosphorus, pl 3.3 2.3 - 4.5 mg/dL Blood 05/17/2025 12:3 0 AM CDT 05/17/2025 12:55 AM CDT Tania Lott MD PhD LAB BLOOD ORDERABLES Fin al Result Performing Organization Address City/[facility] Co de Phone Number CERNER [facility] [place] [address] * Magnesium (05/17/2025 12:30 AM CDT) Pathologist [facility] Magnesium 2.2 1.4 - 2.5 mg/dL Blood 05/17/2025 12:3 0 AM CDT 05/17/2025 12:55 AM CDT Tania Lott MD PhD LAB BLOOD [place] [address] * (ABNORMAL) Lactate dehydrogenase (LD) (05/17/2025 12:30 AM CDT) [facility] Lactate dehydrogenase (LDH) 1,261(H) 100 - 250 Units/L Blood 05/17/2025 12:3 0 AM CDT 05/17/2025 12:55 AM CDT us Tania Lott MD PhD LAB BLOOD ORDERABLES Fin al Result Performing Organization Address City/[facility] [place] [address] * (ABNORMAL) Hepatic function panel (05/17/2025 12:30 AM CDT) [facility] Bilirubin, total 1.0 0.1 - 1.2 mg/dL Bilirubin, direct 0.4(H) 0.1 - 0.3 mg/dL [facility] Protein, pl 4.8(L) 6.5 - 8.5 g/dL [facility] Albumin 2.8(L) 3.5 - 5.0 g/dL [facility] Alk phos 45 40 - 130 Units/L [facility] ALT 20 7 - 55 Units/L [facility] AST 29 10 - 50 Units/L [facility] Blood 05/17/2025 12:3 0 AM CDT 05/17/2025 12:55 AM CDT Tania Lott MD PhD LAB BLOOD ORDERABLES Fin al Result Performing Organization Address City/[facility]/ZIP Co de Phone Number [facility] Department [place] [address] * (ABNORMAL) Basic metabolic panel (05/17/2025 12:30 AM CDT) [facility] Sodium 139 135 - 145 mmol/L Potassium, pl 4.5 3.3 - 4.9 mmol/L [facility] Chloride 106 97 - 110 mmol/L [facility] CO2 29 22 - 32 mmol/L [facility] Anion gap 4 2 - 15 mmol/L [facility] BUN 23 6 - 25 mg/dL [facility] Creatinine 0.69(L) 0.80 - 1.30 mg/dL [facility] Glucose 100 70 - 199 mg/dL [facility] Comment: Interpretive Data Fasting glucose >/= 126 [...] 2022. Calcium 8.3(L) 8.5 - 10.3 mg/dL [facility] Blood 05/17/2025 12:3 0 AM CDT 05/17/2025 12:55 AM CDT us Tania Lott MD PhD LAB BLOOD ORDERABLES Fin al Result Performing Organization Address [facility] Co de Phone Number [facility] Department [place] [address] * POCT glucose (05/16/2025 9:58 PM CDT) Glucose, POC 139 70 - 199 mg/dL Blood 05/16/2025 9:58 PM CDT 05/16/2025 9:58 PM CDT us Tania Lott MD PhD LAB POCT ORDERABLES - DE VICE Final Result ANGELA [facility] [place] [address] * X-ray chest 2 views (05/16/2025 5:49 [...] by: Jorge Ag M.D. us Elisabeth Cortes ACCOUNT STRATEGIST IMG XR PROCEDURES Final Resul t * Potassium, whole blood (05/16/2025 5:30 PM CDT) Potassium, bld 4.5 3.3 - 4.9 mmol/L Blood 05/16/2025 5:30 PM CDT 05/16/2025 5:36 PM CDT [facility] Chandler DO LAB BLOOD ORDERABLES Final Resul t ANGELA [facility] [place] [address] * eGFR (05/16/2025 5:30 PM CDT) eGFR [...] LAB BLOOD ORDERABLES Final Resul t [facility] [place] [address] * (ABNORMAL) Uric acid (05/16/2025 5:30 PM CDT) Uric acid 2.4(L) 3.0 - 8.0 mg/dL Blood 05/16/2025 5:30 PM CDT 05/16/2025 6:10 PM CDT Narrative [facility] - 05/16/2025 6:31 PM CDT Q8hr TLS labs [facility] LAB BLOOD ORDERABLES Final Resul t Performing Organization Address City/[facility]/ZIP Co de Phone Number [facility] Department [place] [address] * Phosphorus (05/16/2025 5:30 PM CDT) [facility] Phosphorus, pl 3.1 2.3 - 4.5 mg/dL Blood 05/16/2025 5:30 PM CDT 05/16/2025 6:10 PM CDT Annelaurence Chandler LAB BLOOD ORDERABLES Final Resul t Performing Organization Address [facility] de Phone Number [facility] Department [place] [address] * (ABNORMAL) Basic metabolic panel (05/16/2025 5:30 PM CDT) [facility] Sodium 139 135 - 145 mmol/L Potassium, pl 4.7 3.3 - 4.9 mmol/L [facility] Chloride 104 97 - 110 mmol/L [facility] CO2 29 22 - 32 mmol/L [facility] Anion gap 6 2 - 15 mmol/L [facility] BUN 27(H) 6 - 25 mg/dL [facility] Creatinine 0.68(L) 0.80 - 1.30 mg/dL [facility] Glucose 150 70 - 199 mg/dL [facility] Comment: Interpretive Data Fasting glucose >/= 126 [...] 2022. Calcium 8.0(L) 8.5 - 10.3 mg/dL [facility] Blood 05/16/2025 5:30 PM CDT 05/16/2025 6:10 PM CDT Erika Chandler DO LAB BLOOD ORDERABLES Final Resul t [facility] [place] [address] * POCT glucose (05/16/2025 5:05 PM CDT) Glucose, POC 166 70 - 199 mg/dL Blood 05/16/2025 5:05 PM CDT 05/16/2025 5:05 PM CDT Tania Lott MD PhD LAB POCT ORDERABLES - DE VICE Final Result Performing Organization Address City/[facility] Co de Phone Number [facility] Department [place] [address] * Transfuse RBC (05/16/2025 3:21 PM CDT) Blood Tania Lott MD PhD BLOOD TRANSFUSION ORDERA BLES Final Result Performing Organization Address City/[facility]/ZIP Co de Phone Number [facility] [place] [address] * POCT glucose (05/16/2025 1:03 PM CDT) Glucose, POC 172 70 - 199 mg/dL Blood 05/16/2025 1:03 PM CDT 05/16/2025 1:03 PM CDT us Tania Lott MD PhD LAB POCT ORDERABLES - DE VICE Final Result Performing Organization Address City/[facility]/ZIP Co de Phone Number [facility] [place] [address] * POCT glucose (05/16/2025 8:21 AM CDT) Glucose, POC 110 70 - 199 mg/dL Blood 05/16/2025 8:21 AM CDT 05/16/2025 8:21 AM CDT us Tania Lott MD PhD LAB POCT ORDERABLES - DE VICE Final Result Performing Organization Address [facility] Co de Phone Number [facility] [place] [address] * Type and screen (05/16/2025 8:13 AM CDT) Benjy, indirect Negative ABO Rh B Positive [facility] Blood 05/16/2025 8:13 AM CDT 05/16/2025 8:38 AM CDT Narrative [facility] - 05/16/2025 9:21 AM CDT Has the patient had Daratumumab or Isatuximab in the past 6 months?->Unknown us Elisabeth Cortes ACCOUNT STRATEGIST LAB BLOOD BANK TEST ORDERABLE S Final Result Performing Organization Address [facility] Co de Phone Number [facility] [place] [address] * (ABNORMAL) Lactate dehydrogenase (LD) (05/16/2025 8:13 AM CDT) Lactate dehydrogenase (LDH) 1,553(H) 100 - 250 Units/L Blood 05/16/2025 8:13 AM CDT 05/16/2025 8:52 AM CDT Tania Lott MD PhD LAB BLOOD ORDERABLES Fin al Result Performing Organization Address [facility] de Phone Number [facility] Department [place] [address] * Transfuse platelets (05/16/2025 8:06 AM CDT) Tania Lott MD PhD BLOOD TRANSFUSION ORDERA BLES Final Result Performing Organization Address [facility] de Phone Number [facility] [place] [address] * Prepare RBC: 1 Units (05/16/2025 7:48 AM CDT) Pathologist [facility] Product code [id number] Unit Number [id number] [facility] Product Blood Type BPOS [facility] Dispense Status PRESUMED TRANSFUSED [facility] Blood Venous blood specimen / Unknown 05/16/2025 7:48 AM CDT 05/16/2025 7:47 AM CDT Narrative [facility] - 05/17/2025 12:55 AM CDT Are special requirements needed? (All products are leukoreduced and CMV- safe)- >Yes Date required:-[id number] Special Req 1:-Irradiated LRRBC # of [id number] Reasons:-BMT, Hgb <8 g/dL} Tania Lott MD PhD BLOOD BANK PRODUCT ORDER BIANKA Final Result Performing Organization Address [facility] de Phone Number [facility] [place] [address] * POCT glucose (05/16/2025 5:48 AM CDT) Pathologist [facility] Glucose, POC 115 70 - 199 mg/dL Blood 05/16/2025 5:48 AM CDT 05/16/2025 5:48 AM CDT us Tania Lott MD PhD LAB POCT ORDERABLES - DE VICE Final Result Performing Organization Address City/[facility]/ZIP Co de Phone Number [facility] [place] [address] * Prepare platelets: 1 Units (05/16/2025 5:45 AM CDT) [facility] Product code [id number] Unit Number [id number] [facility] Product Blood Type BPOS [facility] Dispense Status PRESUMED TRANSFUSED [facility] Blood Venous blood specimen / Unknown 05/16/2025 5:45 AM CDT 05/16/2025 5:44 AM CDT Narrative [facility] - 05/16/2025 8:00 PM CDT Are special requirements needed? (all products are leukoreduced)->Yes Date required:-20250514 Special Req 1:-Irradiated PLT # of Units:-1-Units Reasons:-Stable, non-bleeding, plt < 10 K/cumm} us Tania Lott MD PhD BLOOD BANK PRODUCT ORDER BIANKA Final Result Performing Organization Address [facility] Co de Phone Number [facility] [place] [address] * (ABNORMAL) Immature platelet fraction (05/16/2025 4:44 AM CDT) [facility] IPF 23.1(H) 1.6 - 10.1 % Blood 05/16/2025 4:44 AM CDT 05/16/2025 4:59 AM CDT us Sandy Meraz NP LAB BLOOD ORDERABLES Final R esult Performing Organization Address [facility]/ZIP Co de Phone Number [facility] [place] [address] * Potassium, whole blood (05/16/2025 4:44 AM CDT) Potassium, bld 4.2 3.3 - 4.9 mmol/L Blood 05/16/2025 4:44 AM CDT 05/16/2025 4:50 AM CDT [facility] Chandler LAB BLOOD ORDERABLES Final Resul t Performing Organization Address City/[facility]/ZIP Co de Phone Number ANGELA [facility] [place] [address] * eGFR (05/16/2025 4:44 AM CDT) Pathologist [facility] eGFR >90 >=60 mL/min/1. 73 m2 Comment: [...] BLOOD ORDERABLES Final Resul t [facility] [place] [address] * (ABNORMAL) CBC with auto differential (05/16/2025 4:44 AM CDT) WBC 1.64(L) 3.80 - 9.90 K/cumm Hgb 7.0(L) 13.0 - 17.5 g/dL [facility] Hct 20.6(L) 38.9 - 50.3 % [facility] Plt 7(C) 150 - 400 K/cumm [facility] Comment:This result has been called to Emma Workman RN by [email or web address] on 05/16/2025 05:15:52, and has been read back. MPV Not Measured 9.1 - 12.3 fL [facility] RBC 2.27(L) 4.30 - 5.80 M/cumm [facility] MCV 90.7 81.3 - 96.4 fL [facility] MCH 30.8 27.1 - 33.3 pg [facility] MCHC 34.0 32.3 - 35.7 g/dL [facility] RDW CV 18.7(H) 11.1 - 14.9 % [facility] RDW SD 59.6(H) 35.7 - 48.1 fL [facility] NRBC abs 2.31(H) 0.00 - 0.01 K/cumm [facility] Morphologic Screen Results confirmed by manual morphology review. [facility] Blood 05/16/2025 4:44 AM CDT 05/16/2025 4:56 AM CDT Sandy Meraz NP LAB BLOOD ORDERABLES Edited Result - Final [facility] [place] [address] * (ABNORMAL) Manual Differential (05/16/2025 4:44 AM CDT) [facility] Differential Manual Cells Counted 90 [facility] Neutrophil abs 1.26(L) 1.50 - 6.50 K/cumm [facility] Lymphocyte abs 0.29(L) 0.80 - 3.30 K/cumm [facility] Monocyte abs 0.02(L) 0.20 - 0.80 K/cumm [facility] Basophil abs 0.02 0.00 - 0.10 K/cumm [facility] Neutrophil pct 76.7 % [facility] Comment: Interpretive Data Percent cell count reference ranges are not reported, since discordance with absolute values may lead to misinterpretation of CBC data. Current Interpretive Data was last revised on 2018. Lymphocyte pct 16.7 % [facility] Comment: Interpretive Data Percent cell count reference ranges are not reported, since discordance with absolute values may lead to misinterpretation of CBC data. Current Interpretive Data was last revised on 2018. Monocyte pct 1.1 % [facility] Comment: Interpretive Data Percent cell count reference ranges are not reported, since discordance with absolute values may lead to misinterpretation of CBC data. Current Interpretive Data was last revised on 2018. Basophil pct 1.1 % [facility] Comment: Interpretive Data Percent cell count reference ranges are not reported, since discordance with absolute values may lead to misinterpretation of CBC data. Current Interpretive Data was last revised on 2018. Blast pct 3.3(C) 0.0 - 0.0 [facility] Comment:Critical value greene d within last 30 days. Variant lymph pct 1.1(H) 0.0 - 0.0 % [facility] Blood 05/16/2025 4:44 AM CDT 05/16/2025 4:59 AM CDT Sandy Meraz ACCOUNT STRATEGIST LAB BLOOD ORDERABLES Final R esult [facility] [place] [address] * (ABNORMAL) Uric acid (05/16/2025 4:44 AM CDT) Uric acid 2.9(L) 3.0 - 8.0 mg/dL Blood 05/16/2025 4:44 AM CDT 05/16/2025 4:55 AM CDT Narrative ANGELA [facility] - 05/16/2025 5:23 AM CDT Q8hr TLS labs Erika Chandler DO LAB BLOOD ORDERABLES Final Resul t Performing Organization Address [facility] Co de Phone Number [facility] [place] [address] * Phosphorus (05/16/2025 4:44 AM CDT) Phosphorus, pl 3.8 2.3 - 4.5 mg/dL Blood 05/16/2025 4:44 AM CDT 05/16/2025 4:55 AM CDT Annelaurence Chandler DO LAB BLOOD ORDERABLES Final Resul t Performing Organization Address [facility] de Phone Number [facility] [place] [address] * (ABNORMAL) Magnesium (05/16/2025 4:44 AM CDT) Pathologist [facility] Magnesium 2.6(H) 1.4 - 2.5 mg/dL Blood 05/16/2025 4:44 AM CDT 05/16/2025 4:55 AM CDT Sandy Meraz ACCOUNT STRATEGIST LAB BLOOD ORDERABLES Final R esult Performing Organization Address [facility] Co de Phone Number [facility] [address] * (ABNORMAL) Hepatic function panel (05/16/2025 4:44 AM CDT) Bilirubin, total 0.9 0.1 - 1.2 mg/dL Bilirubin, direct 0.4(H) 0.1 - 0.3 mg/dL [facility] Protein, pl 4.6(L) 6.5 - 8.5 g/dL [facility] Albumin 2.7(L) 3.5 - 5.0 g/dL [facility] Alk phos 48 40 - 130 Units/L [facility] ALT 15 7 - 55 Units/L [facility] AST 33 10 - 50 Units/L [facility] Blood 05/16/2025 4:44 AM CDT 05/16/2025 4:55 AM CDT Sandy Meraz ACCOUNT STRATEGIST LAB BLOOD ORDERABLES Final R esult Performing Organization Address City/[facility]/ZIP Co de Phone Number [facility] Department [place] [address] * (ABNORMAL) Basic metabolic panel (05/16/2025 4:44 AM CDT) Pathologist [facility] Sodium 138 135 - 145 mmol/L Potassium, pl 4.3 3.3 - 4.9 mmol/L [facility] Chloride 104 97 - 110 mmol/L [facility] CO2 29 22 - 32 mmol/L [facility] Anion gap 5 2 - 15 mmol/L [facility] BUN 32(H) 6 - 25 mg/dL [facility] Creatinine 0.78(L) 0.80 - 1.30 mg/dL [facility] Glucose 106 70 - 199 mg/dL [facility] Comment: Interpretive Data Fasting glucose >/= 126 [...] 2022. Calcium 8.1(L) 8.5 - 10.3 mg/dL [facility] Blood 05/16/2025 4:44 AM CDT 05/16/2025 4:55 AM CDT us Erika Chandler DO LAB BLOOD ORDERABLES Final Resul t Performing Organization Address [facility]/ZIP Co de Phone Number [facility] [place] [address] * POCT glucose (05/16/2025 12:06 AM CDT) Glucose, POC 171 70 - 199 mg/dL Blood 05/16/2025 12:0 6 AM CDT 05/16/2025 12:06 AM CDT us Tania Lott MD PhD LAB POCT ORDERABLES - [place] [address] * POCT glucose (05/15/2025 10:31 PM CDT) Glucose, POC 163 70 - 199 mg/dL Blood 05/15/2025 10:3 1 PM CDT 05/15/2025 10:31 PM CDT us Tania Lott MD PhD LAB POCT ORDERABLES - DE VICE Final Result Performing Organization Address [facility] [place] [address] * (ABNORMAL) Lactate dehydrogenase (LD) (05/15/2025 9:00 PM CDT) [facility] Lactate dehydrogenase (LDH) 1,935(H) 100 - 250 Units/L Comment:Repeated on Dilution Blood 05/15/2025 9:00 PM CDT 05/15/2025 9:19 PM CDT us Tania Lott MD PhD LAB BLOOD ORDERABLES Fin al Result [facility] [place] [address] * Potassium, whole blood (05/15/2025 5:05 PM CDT) Potassium, bld 4.6 3.3 - 4.9 mmol/L Blood 05/15/2025 5:05 PM CDT 05/15/2025 5:27 PM CDT [facility] Chandler LAB BLOOD ORDERABLES Final Resul t Performing Organization Address City/[facility] de Phone Number [facility] [place] [address] * eGFR (05/15/2025 5:05 PM CDT) eGFR [...] ORDERABLES Final Resul t Performing Organization Address City/[facility]/ZIP [facility] [place] [address] * (ABNORMAL) Uric acid (05/15/2025 5:05 PM CDT) Uric acid 2.4(L) 3.0 - 8.0 mg/dL Blood 05/15/2025 5:05 PM CDT 05/15/2025 5:42 PM CDT Narrative [facility] - 05/15/2025 6:12 PM CDT Q8hr TLS labs [facility] LAB BLOOD ORDERABLES Final Resul t Performing Organization Address City/[facility]/ZIP Co de Phone Number [facility] Department [place] [address] * (ABNORMAL) Phosphorus (05/15/2025 5:05 PM CDT) [facility] Phosphorus, pl 4.7(H) 2.3 - 4.5 mg/dL Blood 05/15/2025 5:05 PM CDT 05/15/2025 5:42 PM CDT [facility] LAB BLOOD ORDERABLES Final Resul t Performing Organization Address [facility] de Phone Number [facility] Department [place] [address] * (ABNORMAL) Basic metabolic panel (05/15/2025 5:05 PM CDT) [facility] Sodium 137 135 - 145 mmol/L Potassium, pl 4.6 3.3 - 4.9 mmol/L [facility] Chloride 100 97 - 110 mmol/L [facility] CO2 29 22 - 32 mmol/L [facility] Anion gap 8 2 - 15 mmol/L [facility] BUN 39(H) 6 - 25 mg/dL [facility] Creatinine 0.78(L) 0.80 - 1.30 mg/dL [facility] Glucose 143 70 - 199 mg/dL [facility] Comment: Interpretive Data Fasting glucose >/= 126 [...] 2022. Calcium 8.1(L) 8.5 - 10.3 mg/dL [facility] Blood 05/15/2025 5:05 PM CDT 05/15/2025 5:42 PM CDT Erika Chandler DO LAB BLOOD ORDERABLES Final Resul t Performing Organization Address [facility] Co de Phone Number [facility] [place] [address] * POCT glucose (05/15/2025 4:56 PM CDT) Glucose, POC 167 70 - 199 mg/dL Blood 05/15/2025 4:56 PM CDT 05/15/2025 4:56 PM CDT Tania Lott MD PhD LAB POCT ORDERABLES - DE VICE Final Result Performing Organization Address [facility] Co de Phone Number [facility] [place] [address] * (ABNORMAL) POCT glucose (05/15/2025 12:19 PM CDT) Glucose, POC 233(H) 70 - 199 mg/dL Blood 05/15/2025 12:1 9 PM CDT 05/15/2025 12:19 PM CDT Tania Lott MD PhD LAB POCT ORDERABLES - DE VICE Final Result Performing Organization Address [facility] Co de Phone Number [facility] [place] [address] * Transfuse RBC (05/15/2025 12:16 PM CDT) Blood Tania Lott MD PhD BLOOD TRANSFUSION ORDERA BLES Final Result Performing Organization Address [facility] Co de Phone Number [facility] [place] [address] * (ABNORMAL) Lactate dehydrogenase (LD) (05/15/2025 9:20 AM CDT) Lactate dehydrogenase (LDH) 2,440(H) 100 - 250 Units/L Comment:Repeated on Dilution Blood 05/15/2025 9:20 AM CDT 05/15/2025 9:41 AM CDT Tania Lott MD PhD LAB BLOOD ORDERABLES Fin al Result Performing Organization Address [facility] Co de Phone Number [facility] [place] [address] * POCT glucose (05/15/2025 8:33 AM CDT) Glucose, POC 187 70 - 199 mg/dL Blood 05/15/2025 8:33 AM CDT 05/15/2025 8:33 AM CDT Tania Lott MD PhD LAB POCT ORDERABLES - DE VICE Final Result Performing Organization Address [facility] Co de Phone Number [facility] [place] [address] * Transfuse platelets (05/15/2025 6:36 AM CDT) Tania Ltot MD PhD BLOOD TRANSFUSION ORDERA BLES Final Result Performing Organization Address [facility] Co de Phone Number [facility] [place] [address] * Prepare RBC: 1 Units (05/15/2025 4:07 AM CDT) Product code [id number] Unit Number [id number] [facility] Product Blood Type BPOS [facility] Dispense Status PRESUMED TRANSFUSED [facility] Blood Venous blood specimen / Unknown 05/15/2025 4:07 AM CDT 05/15/2025 4:06 AM CDT Narrative [facility] - 05/15/2025 9:00 PM CDT Are special requirements needed? (All products are leukoreduced and CMV- safe)- >Yes Date required:-[id number] Special Req 1:-Irradiated LRRBC # of [id number] Reasons:-BMT, Hgb <8 g/dL} Tania Lott MD PhD BLOOD BANK PRODUCT ORDER BIANKA Final Result Performing Organization Address [facility] de Phone Number [facility] [place] [address] * Prepare platelets: 1 Units (05/15/2025 4:06 AM CDT) Product code [id number] Unit Number [id number] [facility] Dispense Status PRESUMED TRANSFUSED [facility] Blood Venous blood specimen / Unknown 05/15/2025 4:06 AM CDT 05/15/2025 4:06 AM CDT Narrative [facility] - 05/15/2025 8:00 PM CDT Are special requirements needed? (all products are leukoreduced)->Yes Date required:-20250514 Special Req 1:-Irradiated PLT # of Units:-1-Units Reasons:-Stable, non-bleeding, plt < 10 K/cumm} Tania Lott MD PhD BLOOD BANK PRODUCT ORDER BIANKA Final Result Performing Organization Address [facility] Co de Phone Number [facility] [place] [address] * (ABNORMAL) Immature platelet fraction (05/15/2025 3:04 AM CDT) Pathologist [facility] IPF 48.0(H) 1.6 - 10.1 % Blood 05/15/2025 3:04 AM CDT 05/15/2025 3:34 AM CDT Tania Lott MD PhD LAB BLOOD ORDERABLES Fin al Result Performing Organization Address [facility] de Phone Number [facility] [place] [address] * Potassium, whole blood (05/15/2025 3:04 AM CDT) Pathologist [facility] Potassium, bld 4.8 3.3 - 4.9 mmol/L Blood 05/15/2025 3:04 AM CDT 05/15/2025 3:27 AM CDT Tania Lott MD PhD LAB BLOOD ORDERABLES Fin al Result Performing Organization Address [facility] de Phone Number [facility] [place] [address] * eGFR (05/15/2025 3:04 AM CDT) [facility] eGFR >90 >=60 mL/min/1. 73 m2 Comment: [...] 3:04 AM CDT 05/15/2025 3:32 AM CDT Tania Lott MD PhD LAB BLOOD ORDERABLES Fin al Result Performing Organization Address City/[facility]/ZIP Co de Phone Number [facility] Department [place] [address] * POCT glucose (05/15/2025 3:04 AM CDT) Glucose, POC 168 70 - 199 mg/dL Blood 05/15/2025 3:04 AM CDT 05/15/2025 3:04 AM CDT Tania Lott MD PhD LAB POCT ORDERABLES - DE VICE Final Result Performing Organization Address [facility] Co de Phone Number [facility] Department [place] [address] * (ABNORMAL) CBC with auto differential (05/15/2025 3:04 AM CDT) [facility] WBC 5.78 3.80 - 9.90 K/cumm Hgb 7.2(L) 13.0 - 17.5 g/dL [facility] Hct 20.6(L) 38.9 - 50.3 % [facility] Plt 5(C) 150 - 400 K/cumm [facility] Comment:This result has been called to carol lua rn by [id number] on 05/15/2025 03:53:50, and has been read back. no clot detected. This result has been called to carol lua rn by [email or web address] on 05/15/2025 03:53:34. MPV Not Measured 9.1 - 12.3 fL [facility] RBC 2.27(L) 4.30 - 5.80 M/cumm [facility] MCV 90.7 81.3 - 96.4 fL [facility] MCH 31.7 27.1 - 33.3 pg [facility] MCHC 35.0 32.3 - 35.7 g/dL [facility] RDW CV 20.0(H) 11.1 - 14.9 % [facility] RDW SD 63.5(H) 35.7 - 48.1 fL [facility] NRBC abs 4.34(H) 0.00 - 0.01 K/cumm [facility] Blood 05/15/2025 3:04 AM CDT 05/15/2025 3:26 AM CDT us Tania Lott MD PhD LAB BLOOD ORDERABLES Fin al Result [facility] [place] [address] * (ABNORMAL) Manual Differential (05/15/2025 3:04 AM CDT) Differential Manual Cells Counted 101 [facility] Neutrophil abs 5.61 1.50 - 6.50 K/cumm [facility] Monocyte abs 0.06(L) 0.20 - 0.80 K/cumm [facility] Neutrophil pct 97.0 % [facility] Comment: Interpretive Data Percent cell count reference ranges are not reported, since discordance with absolute values may lead to misinterpretation of CBC data. Current Interpretive Data was last revised on 2018. Monocyte pct 1.0 % [facility] Comment: Interpretive Data Percent cell count reference ranges are not reported, since discordance with absolute values may lead to misinterpretation of CBC data. Current Interpretive Data was last revised on 2018. Blast pct 2.0(C) 0.0 - 0.0 [facility] Comment:Critical value greene d within last 30 days. RBC morphology Present(A) [facility] Anisocytosis Moderate(A ) [facility] Macrocytes 3-7/HPF(A) [facility] Platelet estimate Decreased( A) [facility] Blood 05/15/2025 3:04 AM CDT 05/15/2025 3:34 AM CDT Tania Lott MD PhD LAB BLOOD ORDERABLES Fin al Result Performing Organization Address [facility] de Phone Number [facility] [place] [address] * (ABNORMAL) Uric acid (05/15/2025 3:04 AM CDT) Uric acid 2.3(L) 3.0 - 8.0 mg/dL Blood 05/15/2025 3:04 AM CDT 05/15/2025 3:24 AM CDT Tania Lott MD PhD LAB BLOOD ORDERABLES Fin al Result Performing Organization Address [facility] de Phone Number [facility] [place] [address] * (ABNORMAL) Phosphorus (05/15/2025 3:04 AM CDT) Phosphorus, pl 5.9(H) 2.3 - 4.5 mg/dL Blood 05/15/2025 3:04 AM CDT 05/15/2025 3:24 AM CDT Tania Lott MD PhD LAB BLOOD ORDERABLES Fin al Result Performing Organization Address [facility] [place] [address] * (ABNORMAL) Magnesium (05/15/2025 3:04 AM CDT) Magnesium 2.6(H) 1.4 - 2.5 mg/dL Blood 05/15/2025 3:04 AM CDT 05/15/2025 3:24 AM CDT Tania Lott MD PhD LAB BLOOD ORDERABLES Fin al Result [facility] [place] [address] * (ABNORMAL) Lactate dehydrogenase (LD) (05/15/2025 3:04 AM CDT) Lactate dehydrogenase (LDH) 2,475(H) 100 - 250 Units/L Comment:Repeated on Dilution Blood 05/15/2025 3:04 AM CDT 05/15/2025 3:24 AM CDT Tania Lott MD PhD LAB BLOOD ORDERABLES Fin al Result Performing Organization Address [facility] Co de Phone Number [facility] [place] [address] * (ABNORMAL) Hepatic function panel (05/15/2025 3:04 AM CDT) Bilirubin, total 0.6 0.1 - 1.2 mg/dL Bilirubin, direct 0.3 0.1 - 0.3 mg/dL [facility] Protein, pl 4.9(L) 6.5 - 8.5 g/dL [facility] Albumin 2.8(L) 3.5 - 5.0 g/dL [facility] Alk phos 52 40 - 130 Units/L [facility] ALT 14 7 - 55 Units/L [facility] AST 58(H) 10 - 50 Units/L [facility] Blood 05/15/2025 3:04 AM CDT 05/15/2025 3:24 AM CDT Tania Lott MD PhD LAB BLOOD ORDERABLES Fin al Result Performing Organization Address City/[facility]/ZIP Co de Phone Number [facility] [place] [address] * (ABNORMAL) Basic metabolic panel (05/15/2025 3:04 AM CDT) Pathologist [facility] Sodium 136 135 - 145 mmol/L Potassium, pl 4.9 3.3 - 4.9 mmol/L [facility] Chloride 99 97 - 110 mmol/L [facility] CO2 30 22 - 32 mmol/L [facility] Anion gap 7 2 - 15 mmol/L [facility] BUN 43(H) 6 - 25 mg/dL [facility] Creatinine 0.83 0.80 - 1.30 mg/dL [facility] Glucose 140 70 - 199 mg/dL [facility] Comment: Interpretive Data Fasting glucose >/= 126 [...] 2022. Calcium 8.0(L) 8.5 - 10.3 mg/dL [facility] Blood 05/15/2025 3:04 AM CDT 05/15/2025 3:24 AM CDT us Tania Lott MD PhD LAB BLOOD ORDERABLES Fin al Result [facility] [place] [address] * POCT glucose (05/14/2025 11:50 PM CDT) Pathologist [facility] Glucose, POC 181 70 - 199 mg/dL Blood 05/14/2025 11:5 0 PM CDT 05/14/2025 11:50 PM CDT Tania Lott MD PhD LAB POCT ORDERABLES - DE VICE Final Result Performing Organization Address City/[facility]/ZIP Co de Phone Number [facility] [place] [address] * (ABNORMAL) POCT glucose (05/14/2025 8:30 PM CDT) Glucose, POC 219(H) 70 - 199 mg/dL Blood 05/14/2025 8:30 PM CDT 05/14/2025 8:30 PM CDT us Tania Lott MD PhD LAB POCT ORDERABLES - DE VICE Final Result Performing Organization Address [facility] Co de Phone Number ANGELA [facility] [place] [address] * eGFR (05/14/2025 4:40 PM CDT) eGFR [...] ORDERABLES Final Resul t Performing Organization Address [facility] de Phone Number [facility] [place] [address] * (ABNORMAL) Uric acid (05/14/2025 4:40 PM CDT) Uric acid 1.6(L) 3.0 - 8.0 mg/dL Blood 05/14/2025 4:40 PM CDT 05/14/2025 5:06 PM CDT Narrative [facility] - 05/14/2025 5:54 PM CDT Q8hr [facility] labs Erika Chandler DO LAB BLOOD ORDERABLES Final Resul t Performing Organization Address [facility] de Phone Number [facility] [place] [address] * (ABNORMAL) Phosphorus (05/14/2025 4:40 PM CDT) Phosphorus, pl 4.8(H) 2.3 - 4.5 mg/dL Blood 05/14/2025 4:40 PM CDT 05/14/2025 5:06 PM CDT Erika Chandler DO LAB BLOOD ORDERABLES Final Resul t Performing Organization Address [facility] de Phone Number [facility] [place] [address] * (ABNORMAL) Lactate dehydrogenase (LD) (05/14/2025 4:40 PM CDT) Lactate dehydrogenase (LDH) 2,495(H) 100 - 250 Units/L Comment:Repeated on Dilution Blood 05/14/2025 4:40 PM CDT 05/14/2025 5:06 PM CDT us Tania Lott MD PhD LAB BLOOD ORDERABLES Fin al Result [facility] [place] [address] * (ABNORMAL) Basic metabolic panel (05/14/2025 4:40 PM CDT) Sodium 139 135 - 145 mmol/L Potassium, pl 4.3 3.3 - 4.9 mmol/L [facility] Chloride 106 97 - 110 mmol/L [facility] CO2 27 22 - 32 mmol/L [facility] Anion gap 6 2 - 15 mmol/L [facility] BUN 35(H) 6 - 25 mg/dL [facility] Creatinine 0.74(L) 0.80 - 1.30 mg/dL [facility] Glucose 121 70 - 199 mg/dL [facility] Comment: Interpretive Data Fasting glucose >/= 126 [...] 2022. Calcium 7.1(L) 8.5 - 10.3 mg/dL [facility] Blood 05/14/2025 4:40 PM CDT 05/14/2025 5:06 PM CDT us Erika Chandler DO LAB BLOOD ORDERABLES Final Resul t Performing Organization Address [facility]/ZIP Co de Phone Number [facility] [place] [address] * POCT glucose (05/14/2025 4:16 PM CDT) Glucose, POC 162 70 - 199 mg/dL Blood 05/14/2025 4:16 PM CDT 05/14/2025 4:16 PM CDT Tania Lott MD PhD LAB POCT ORDERABLES - DE VICE Final Result Performing Organization Address [facility] Co de Phone Number [facility] [place] [address] * Flow Leukemia/Lymphoma Bone marrow (05/14/2025 12:49 PM CDT) Patel Stain Test Completed Leukemia/Lymp [place] Result See separate Surgical Pathology report. [facility] Bone marrow 05/14/2025 12:4 9 PM CDT 05/14/2025 1:51 PM CDT Elisabeth Cortes ACCOUNT STRATEGIST LAB PATHOLOGY ORDERABLES Izzy l Result Performing Organization Address [facility] de Phone Number [facility] [place] [address] * Hematologic Molecular Algorithm Bone marrow (05/14/2025 12:49 PM CDT) Heme Molecular Algorithm Received Comment:05/17/2025 - HMA Com plete, no additional testing indicated. Bone marrow 05/14/2025 12:4 9 PM CDT 05/14/2025 2:13 PM CDT Narrative [facility] - 05/19/2025 9:46 AM CDT Select diagnosis - - Appropriate molecular tests will be performed based on histopathological diagnosis.->New Patient Elisabeth Cortes ACCOUNT STRATEGIST LAB BODY FLUIDS AND STOOLS OR DERABLES Final Result Performing Organization Address [facility] Co de Phone Number [facility] [place] [address] * ChromoSeq - Heme Genetic Profiling (WGS) with interpretation Bone marrow (05/14/2025 12:44 PM CDT) Bone marrow (Bone Marrow Biopsy) 05/14/2025 12:44 PM CDT 05/17/2025 2:42 PM CDT Narrative [facility] DIAGNOSTIC LAB - CYTOGENETICS - 05/22/2025 7:11 AM CDT [facility] Pathology Services [address] [place] [address] Final Report Patient Name: TAMMY WRIGHT Address: [address] [place] [address] Gender: M : 1965 (Age: 60) Accessioned: 05/17/2025 Taken: 05/14/2025 Received: 05/17/2025 Physician(s): Elisabeth Cortes NP Service: [facility] IP Location: [place] [address] Hospital #: [id number] Patient Type: [facility] Inpatient ChromoSeq Molecular DiagnosticsReported:05/22/2025 Tissue type: Bone [...] the corresponding fluorescence in situ hybridization studies ([id number]). In addition, two variants in CEBPA as [...] not clearly associated with favorable-risk disease (PMID: [id number]). This case is best classified as AML, [...] MD, PhD 05/22/2025 07:08:55 us Elisabeth Cortes ACCOUNT STRATEGIST LAB PATHOLOGY ORDERABLES Izzy delarosa Result [facility] DIAGNOSTIC LAB - CYTOGENETICS [address] [place] [address] * Diagnosis MyeloSeq Heme NGS Panel with Interpretation Bone marrow (05/14/2025 12:44 PM CDT) Bone marrow (Bone Marrow Biopsy) 05/14/2025 12:44 PM CDT 05/17/2025 2:42 PM CDT Narrative [facility] DIAG[facility]IC [facility] - CYTOGENETICS - 05/28/2025 9:32 AM CDT [facility] Pathology Services [address] [place] [address] Final Report Patient Name: TAMMY WRIGHT Address: [address] [place] [address] Gender: M : 1965 (Age: 60) Accessioned: 05/17/2025 Taken: 05/14/2025 Received: 05/17/2025 Physician(s): Elisabeth Cortes NP Service: [facility] Location: [place] [address] Hospital #: [id number] Patient Type: [facility] Inpatient MyeloSeq Molecular DiagnosticsReported:05/28/2025 Varients Detected: GENE [...] not clearly associated with favorable-risk disease (PMID: [id number]). This case is best classified as AML, [...] admitted with leukocytosis. 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 Corresponding cytogenetic studies ([id number]) show no evidence of clonal aberrations. Corresponding ChromoSeq study ([id number]) shows variants in CEBPA, FLT3, and SMC3. Specimen site: Bone marrow Variant Detail: Gene Location (GRCh38) Reference allele Variant allele Transcript:Coding change Population Frequency* SMC3 chr10:[id number] G A [id number]:c.1998G>A none FLT3 chr13:[id number] T TACCAAACTCTAAATTTTCTCTTGGAAACTCCCATTTGAGATCATATTCATATTCTCTGAAATCAACGTA [id number]:c.1771_1837+2dup none CEBPA chr19:64922445 T C [id number]:c.961A>G none CEBPA chr19:85875121 T TC [id number]:c.238dup none*The population allele frequency represents the maximum [...] the CLIA Licensed Environment laboratory at the [facility] at [facility] ([facility], CLIA #[id number], CAP #[id number]), Dr. Chavo Horta MD, PhD, FCAP, Professor Of Nursing. [address] [place] [address], [address] [address] . The [facility] laboratory is regulated under CLIA as certified to perform high-complexity testing. Interpretation of sequencing results and case sign out is performed by Pathology and Immunology faculty in the Division of Genomic and Molecular Pathology (-[facility], CLIA #[id number], CAP #[id number]) Dr. Claire Danielson Ph.D., Professor Of Nursing. [facility], [facility], [address], [place] [address] [phone] . The [facility] is regulated [...] 30GBases of sequencing data generated on an [employer]. This test has been validated according to CAP guidelines for the detection of single nucleotide variants (SNVs) and indels (max validated size 117bp). This assay has two limits of detection: for new variants (not previously reported by [employer]) sensitivity is limited to 2% VAF; for [...] Such information and correlations are subject to gear changer time in response to future scientific [...] ORDERABLES Izzy delarosa Result Performing Organization Address City/State/[facility] Co de Phone Number [facility] DIAGNOSTIC LAB - CYTOGENETICS [address] [place] [address] * Cytogenetics Bone marrow (05/14/2025 12:43 PM CDT) Bone marrow (Bone Marrow Biopsy) 05/14/2025 12:43 PM CDT 05/14/2025 12:43 PM CDT Narrative [facility] DIAG[facility]IC [facility] - CYTOGENETICS - 05/27/2025 6:37 PM CDT EPIC results best viewed via link to PDF [facility] Department of Pathol [address] [place] [address] Patient Information Name: TAMMY WRIGHT Gender: Michael : 1965 (Age: 60) Tissue: Bone Marrow w/ FISH Visit Information Hospital #: [id number] Facility: [facility] Service: [facility] Location: [place] [address] Patient Type: [facility] Inpatient Specimen Information: Culture #: [id number] Date Collected: 05/14/2025 Date Accessioned: 05/14/2025 Date Ordered: 05/14/2025 Physician(s): Tania Lott M.D. Processin hours unstimulated Indication: Leukocytosis; new AML Specimen Quality: Low cell count Adequate: FISH Adequate: Chromosome analysis CLINICAL REPORT CHROMOSOME ANALYSIS Metaphases Counted: 20 Banding Technique: GTW Colonies Counted: Metaphases Analyzed: 20 Additional Method: FISH Number of Cultures: 1 Metaphases Karyotyped: 3 Banding Resolution: 400 Subculture: Karyotype: 46,XY[20].nuc fred (MECOM)x2[200],(EGR1)x2[200],(Q2J593)x2[200],(CWBI6G6,RUNX1)x2[200],(ASS1,ABL1,B CR)x2 [200], (KMT2A)x2[200],(PML,OLI)x2[200],(CBFB)x2[200] Diagnosis: CHROMOSOME ANALYSIS: NO EVIDENCE OF CLONAL ABERRATIONS FISH FINDINGS: NO EVIDENCE OF DELETION/MONOSOMY OF EGR1 (5q) OR F4R569 (7q) NO EVIDENCE OF MECOM, BCR::ABL1, PML::OLI, CBFB, KMT2A OR IAQJ1V1::RUNX1 REARRANGEMENT INTERPRETATION: No clonal cytogenetic aberrations were [...] Professional component performed by Iliana Rachel, Ph.D., [facility], [address], [place], [place] (CLIA #: [id number]). Chromosome analysis and Fluorescence In Situ Hybridization (FISH) analysis are performed using the [employer]on [employer]toAt[employer] Imaging System. Report Electronically Reviewed and Signed Out By Iliana Rachel, PhDDate Reported: 05/27/2025 FLUORESCENCE IN-SITU HYBRIDIZATION [FISH] Karyotype: nuc fred (MECOM)x2[200],(EGR1)x2[200],(K8Y568)x2[200],(EKOH6W9,RUNX1)x2[200],(ASS1,ABL1,B CR)x2 [200], (KMT2A)x2[200],(PML,OLI)x2[200],(CBFB)x2[200] Diagnosis: FISH FINDINGS: NO EVIDENCE OF DELETION/MONOSOMY OF EGR1 (5q) OR Y6P021 (7q) NO EVIDENCE OF MECOM, BCR::ABL1, PML::OLI, CBFB, KMT2A OR HDZP3H2::RUNX1 REARRANGEMENT INTERPRETATION: FISH analysis was performed with a panel of [employer] and [employer] probes for AML and is interpreted as NORMAL. 1) FISH evaluation for an MECOM (EVI1) rearrangement was performed on nuclei with the MECOM Dual Color, Break Apart Rearrangement Probe ([employer]) at 3q26 and is interpreted as NORMAL. No rearrangement was observed in 199/200 nuclei, which is within the normal range established for this probe in the Clinical [facility]omics Laboratory at [facility]. Up to 1% of cells in normal samples can show an apparent MECOM rearrangement using this probe. A normal MECOM FISH finding can result from the absence of a MECOM rearrangement, from a variant MECOM rearrangement or from an insufficient number of neoplastic cells in the specimen. 2) FISH evaluation for a 5q deletion was performed on nuclei with the EGR1,S1N874/Q9T7043 Dual Color Probe ([employer] for EGR1 at 5q31.1 and the control H6S416/F4Y4643 at 5p15.31 and is interpreted as NORMAL. Two EGR1 hybridization signals and two P2M846/U4J5395 control hybridization signals were observed in 200/200 nuclei, which is within the normal range established for this probe in the Clinical [facility]omics Laboratory at [facility]. Up to 3.1% of cells in [...] was performed on nuclei with the LSI R3W292/D7Z1 Dual Color Probe ([employer] for R5U035 at 7q31 and the control D7Z1 at 7p11.1-q11.1 and is interpreted as NORMAL. Two T1H747 hybridization signals and two D7Z1 control hybridization signals were observed in 200/200 nuclei, which is within the normal range established for this probe set in the [facility]omics Laboratory at [facility]. Up to 1% of cells in normal samples can show an apparent 7q deletion using this probe. A normal E5D139 FISH finding can result from the absence of a 7q deletion, from a 7q deletion that does not involve the region to which this probe hybridizes or from an insufficient number of neoplastic cells in the specimen. 4) FISH evaluation for a ERJX5M3::RUNX1 rearrangement was performed on nuclei with the LSI TALH5T8::RUNX1 Dual Color, Dual Fusion Translocation Probe ([employer] for LNKW1N1 (ETO) at 8q22 and RUNX1 (AML1) at 21q22 and is interpreted as NORMAL. No rearrangement was observed in 198/200 nuclei, which is within the normal range established for this probe in the [facility] Laboratory at [facility]. Variant signal pattern was observed in 2/200 nuclei. Up to 5% of cells in normal samples can show random overlap of OIES1N0::RUNX1 probes and additional nuclei may show extra or missing signals. A normal BRGW2Y9::RUNX1 FISH finding can result from the absence of an JGLF2P0::RUNX1 rearrangement, from a variant TOOH7F3::RUNX1 rearrangement or from an insufficient number of [...] probe in the [facility] Laboratory at [facility]. Variant signal pattern was observed in [...] probe in the [facility] Laboratory at [facility]. Up to 1% of cells in [...] probe in the Clinical [facility]omics Laboratory at [facility]. Variant signal pattern was observed in [...] probe in the Clinical [facility]omics Laboratory at [facility]. Up to 2% of cells in [...] developed and its performance characteristics determined by [facility]. It has not been cleared or approved by the FDA. The laboratory is regulated under CLIA as qualified to perform high-complexity testing. This test is used for clinical purposes. It should not be regarded as investigational or for research. Chromosome analysis and Fluorescence In Situ Hybridization (FISH) analysis are performed using the [employer]on [employer]to[employer] Imaging System. Report Electronically Reviewed and Signed Out By Kelton Temple, PhD, FACMGDate Reported: 05/17/2025ssistant Professor, Division of Genomic & Molecular Pathology us Elisabeth Cortes ACCOUNT STRATEGIST LAB GENETIC TESTING Final Res ult [facility] DI[facility] - CYTOGENETICS [address] [place] [address] * (ABNORMAL) POCT glucose (05/14/2025 11:05 AM CDT) Glucose, POC 221(H) 70 - 199 mg/dL Comment:Glu2: RN/MD Notified Glucose comment 1 Glu2: RN/MD Notified ANGELA [facility] Blood 05/14/2025 11:0 5 AM CDT 05/14/2025 11:05 AM CDT us Tania Lott MD PhD LAB POCT ORDERABLES - DE VICE Final Result Performing Organization Address City/[facility] Co de Phone Number [facility] Department [place] [address] * Surgical pathology (05/14/2025 10:07 AM CDT) Biopsy (Bone Marrow Biopsy) 05/14/2025 10:07 AM CDT 05/14/2025 1:44 PM CDT Narrative PATHOLOGY [facility] - 05/17/2025 2:55 PM CDT EPIC results best viewed via link to PDF [facility] Laboratory [place] [address] Note to Patients: This report may contain [...] Gender: M : 1965 (Age: 60) Address: [address] [place] [address] Hospital #: [id number] Taken:05/14/2025 Received:05/14/2025 Reported: 05/17/2025 Patient Type: [facility] Inpatient Service: BoneMarTranspl Location: [place] [address] Physician(s): Elisabeth Cortes NP Diagnosis: Bone marrow, [...] flagged as significant and was sent to ACCOUNT STRATEGIST Elisabeth cortes via email on 05/17/2025 @ [...] CD10, CD64, CD34, CD14, CD11b, CD15, CD19, Brooks, Lambda, CD10, CD5, CD200, CD20, CD19, TCRgd, CD2, CD56, CD5, CD8, CD3, euUC32p, TdT, cyCD3, cyCD22, cyCD1 Targetable AntigenExpression (%)Expression (Intensity)TX925Pksoxc PR4694Gpigbz XP10057TnwbhlZM50771FbdqssDISCLAIMER: Immunotherapy can interfere with antigen detection in this assay. Correlation with clinical history is required. All antigen expression measurements are surface unless noted otherwise. Correlation with morphology (if submitted), cytochemistry, clinical, laboratory, and genetic findings is required for definitive diagnosis and classification. A Patel-Giemsa stained cytospin from the flow cytometry specimen was examined for internal quality process auditor purposes. Flow cytometry was performed using antibodies to the following cellular antigens: CD45, CD34, CD19, CD20, Brooks, Lambda, CD10, CD5, CD200, CD38, CD2, CD3, [...] Surgical Pathology and Flow Cytometry Departments at [facility] as part of an ongoing vendor quality supervisor program and in compliance with federally mandated [...] Surgical Pathology and Flow Cytometry Departments of [facility]. It has not been cleared or approved by the U. S. Food and Drug Administration. IMAGES AND SCANNED DOCUMENTS, IF INCLUDED, ONLY VIEWABLE IN PDF VERSION OF REPORT Elisabeth Cortes ACCOUNT STRATEGIST LAB PATHOLOGY ORDERABLES Izzy l Result Performing Organization Address [facility] Co de Phone Number PATHOLOGY [facility] 3rd Floor [place], [place] [phone] * Transfuse RBC (05/14/2025 9:08 AM CDT) Blood Tania Lott MD PhD BLOOD TRANSFUSION ORDERA BLES Final Result Performing Organization Address [facility] Co de Phone Number ANGELA [facility] Department [place] [address] * POCT glucose (05/14/2025 8:38 AM CDT) Pathologist [facility] Glucose, POC 175 70 - 199 mg/dL Blood 05/14/2025 8:38 AM CDT 05/14/2025 8:38 AM CDT Tania Lott MD PhD LAB POCT ORDERABLES - DE VICE Final Result Performing Organization Address [facility] de Phone Number [facility] [place] [address] * TRANSTHORACIC ECHO (TTE) COMPLETE W DOPPLER/CF WO CONTRAST (05/14/2025 8:19 AM CDT) Pathologist [facility] EF Mod BP 71 % CONS SCIMAGE Anatomical Region Laterality Modality Ultrasound 05/14/2025 7:35 AM CDT Narrative 05/14/2025 8:51 AM CDT [facility] Cardiac [place] [address] Transthoracic Echocardiographic Report Patient Name: TAMMY WRIGHT : 1965 (60y 1m) Gender: M Study Date: 05/14/2025 07:35:21 AM Ht(Inch): 71 Wt(Lb): 186.07 BSA: 2.06 Wrist Liner: Michael Carr [facility] Location: [id number] Order Provider: ERIKA CHANDLER Heart Rate: 65 [...] Note Raymond Phelps MD PhD - 05/14/2025 [facility] [address] Transthoracic Echocardiographic Report Patient Name: TAMMY WRIGHT : 1965 (60y 1m) Gender: M Study Date: 05/14/2025 07:35:21 AM Ht(Inch): 71 Wt(Lb): 186.07 BSA: 2.06 Wrist Liner: Michael Carr [facility] Location: [id number] Order Provider:ERIKA CHANDLER Heart Rate: 65 BMI: [...] LA Length 4C 5.73 cm MV Decel Lhna506.56 msec [ 104.00 - 258.00 ] LA [...] PG16 mmHg IVC Collapse 57 % PI QMM446.87 sec AoR Diam 2D 3.53 cm [ 3.10 - 3.70 ] Ao Root Index 1.72 cm/m2 [ 1.00 - 2.00 ] Asc Ao Diam 2D3.32 cm Asc Ao Index1.61 cm/m2 Electronically Signed By: Raymond Phelps M.D. 05/14/2025 8:50:42 AM CDT us Erika Chandler DO CV ECHO PROCEDURES Final Result * Prepare RBC: 1 Units (05/14/2025 5:15 AM CDT) [facility] Product code [id number] Unit Number [id number]- G [facility] Product Blood Type BPOS [facility] Dispense Status PRESUMED TRANSFUSED [facility] Blood Venous blood specimen / Unknown 05/14/2025 5:15 AM CDT 05/14/2025 5:14 AM CDT Narrative [facility] - 05/14/2025 8:00 PM CDT Are special requirements needed? (All products are leukoreduced and CMV- safe)- >Yes Date required:-[id number] Special Req 1:-Irradiated LRRBC # of Clazl-4-Wmluq Reasons:-BMT, Hgb <8 g/dL} Tania Lott MD PhD BLOOD BANK PRODUCT ORDER BIANKA Final Result Performing Organization Address City/[facility]/ZIP Co de Phone Number [facility] [place] [address] * Potassium, whole blood (05/14/2025 3:48 AM CDT) [facility] Potassium, bld 4.2 3.3 - 4.9 mmol/L Blood 05/14/2025 3:48 AM CDT 05/14/2025 4:04 AM CDT Tania Lott MD PhD LAB BLOOD ORDERABLES Fin al Result [facility] [place] [address] * (ABNORMAL) Immature platelet fraction (05/14/2025 3:47 AM CDT) [facility] IPF 28.7(H) 1.6 - 10.1 % Blood 05/14/2025 3:47 AM CDT 05/14/2025 4:21 AM CDT Tania Lott MD PhD LAB BLOOD ORDERABLES Fin al Result Performing Organization Address [facility] de Phone Number ANGELA [facility] [place] [address] * eGFR (05/14/2025 3:47 AM CDT) [facility] eGFR >90 >=60 mL/min/1. 73 m2 Comment: [...] ORDERABLES Fin al Result Performing Organization Address City/[facility] Co de Phone Number [facility] [place] [address] * (ABNORMAL) CBC with auto differential (05/14/2025 3:47 AM CDT) [facility] WBC 35.76(H) 3.80 - 9.90 K/cumm Hgb 7.0(L) 13.0 - 17.5 g/dL [facility] Hct 19.7(L) 38.9 - 50.3 % [facility] Plt 13(C) 150 - 400 K/cumm MARY [facility] Comment:Platelet count confi rmed by additional testing. Critical platelet count threshold determined by patient location: Outpatient:<50 K/cumm , Inpatient adults:<20 K/cumm , Inpatient pediatric:<25 K/cumm, BMT service:<10 K/cumm MPV 10.1 9.1 - 12.3 fL [facility] RBC 2.12(L) 4.30 - 5.80 M/cumm [facility] MCV 92.9 81.3 - 96.4 fL [facility] MCH 33.0 27.1 - 33.3 pg [facility] MCHC 35.5 32.3 - 35.7 g/dL [facility] RDW CV 19.8(H) 11.1 - 14.9 % [facility] RDW SD 64.5(H) 35.7 - 48.1 fL [facility] NRBC abs 6.46(H) 0.00 - 0.01 K/cumm [facility] Blood 05/14/2025 3:47 AM CDT 05/14/2025 4:05 AM CDT us Tania Lott MD PhD LAB BLOOD ORDERABLES Fin al Result [facility] [place] [address] * (ABNORMAL) Manual Differential (05/14/2025 3:47 AM CDT) Differential Manual Cells Counted 111 [facility] Neutrophil abs 21.28(H) 1.50 - 6.50 K/cumm [facility] Imm gran abs 2.57(H) 0.00 - 0.10 K/cumm [facility] Lymphocyte abs 2.25 0.80 - 3.30 K/cumm [facility] Monocyte abs 2.90(H) 0.20 - 0.80 K/cumm [facility] Eosinophil abs 0.32 0.00 - 0.50 K/cumm [facility] Basophil abs 2.57(H) 0.00 - 0.10 K/cumm [facility] Neutrophil pct 59.5 % [facility] Comment: Interpretive Data Percent cell count reference ranges are not reported, since discordance with absolute values may lead to misinterpretation of CBC data. Current Interpretive Data was last revised on 2018. Lymphocyte pct 6.3 % [facility] Comment: Interpretive Data Percent cell count reference ranges are not reported, since discordance with absolute values may lead to misinterpretation of CBC data. Current Interpretive Data was last revised on 2018. Monocyte pct 8.1 % [facility] Comment: Interpretive Data Percent cell count reference ranges are not reported, since discordance with absolute values may lead to misinterpretation of CBC data. Current Interpretive Data was last revised on 2018. Eosinophil pct 0.9 % [facility] Comment: Interpretive Data Percent cell count reference ranges are not reported, since discordance with absolute values may lead to misinterpretation of CBC data. Current Interpretive Data was last revised on 2018. Basophil pct 7.2 % [facility] Comment: Interpretive Data Percent cell count reference ranges are not reported, since discordance with absolute values may lead to misinterpretation of CBC data. Current Interpretive Data was last revised on 2018. Myelocyte pct 5.4(H) 0.0 - 0.0 % [facility] Promyelocyte pct 1.8(H) 0.0 - 0.0 % [facility] Blast pct 10.8(C) 0.0 - 0.0 [facility] Comment:Critical value greene d within last 30 days. RBC morphology Present(A) [facility] Anisocytosis Moderate(A ) [facility] Macrocytes 3-7/HPF(A) [facility] Platelet estimate Decreased( A) [facility] Blood 05/14/2025 3:47 AM CDT 05/14/2025 4:21 AM CDT us Tania Lott MD PhD LAB BLOOD ORDERABLES Fin al Result [facility] [place] [address] * (ABNORMAL) HSV 2 IgG Antibody Blood [...] AL ORDERABLES Final Result Performing Organization Address [facility] de Phone Number [facility] [place] [address] * HSV 1 IgG Antibody Blood (05/14/2025 3:47 AM CDT) [facility] HSV 1 IgG Nonreactive Nonreactive Comment: Interpretive [...] AL ORDERABLES Final Result Performing Organization Address [facility] de Phone Number [facility] [place] [address] * (ABNORMAL) Uric acid (05/14/2025 3:47 AM CDT) [facility] Uric acid 1.7(L) 3.0 - 8.0 mg/dL Blood 05/14/2025 3:47 AM CDT 05/14/2025 4:06 AM CDT Tania Lott MD PhD LAB BLOOD ORDERABLES Fin al Result Performing Organization Address [facility] Co de Phone Number [facility] [place] [address] * (ABNORMAL) Phosphorus (05/14/2025 3:47 AM CDT) Phosphorus, pl 5.2(H) 2.3 - 4.5 mg/dL Blood 05/14/2025 3:47 AM CDT 05/14/2025 4:06 AM CDT Tania Lott MD PhD LAB BLOOD ORDERABLES Fin al Result Performing Organization Address [facility] de Phone Number [facility] [place] [address] * Magnesium (05/14/2025 3:47 AM CDT) Pathologist [facility] Magnesium 2.2 1.4 - 2.5 mg/dL Blood 05/14/2025 3:47 AM CDT 05/14/2025 4:06 AM CDT Tania Lott MD PhD LAB BLOOD ORDERABLES Fin al Result Performing Organization Address [facility] de Phone Number [facility] [place] [address] * (ABNORMAL) Lactate dehydrogenase (LD) (05/14/2025 3:47 AM CDT) Lactate dehydrogenase (LDH) 2,710(H) 100 - 250 Units/L Comment:Repeated on Dilution Blood 05/14/2025 3:47 AM CDT 05/14/2025 4:06 AM CDT Tania Lott MD PhD LAB BLOOD ORDERABLES Fin al Result Performing Organization Address [facility] Co de Phone Number [facility] [place] [address] * (ABNORMAL) Hepatic function panel (05/14/2025 3:47 AM CDT) Bilirubin, total 0.7 0.1 - 1.2 mg/dL Bilirubin, direct 0.3 0.1 - 0.3 mg/dL [facility] Protein, pl 4.6(L) 6.5 - 8.5 g/dL [facility] Albumin 2.7(L) 3.5 - 5.0 g/dL [facility] Alk phos 56 40 - 130 Units/L [facility] ALT 18 7 - 55 Units/L [facility] AST 79(H) 10 - 50 Units/L [facility] Blood 05/14/2025 3:47 AM CDT 05/14/2025 4:06 AM CDT Tania Lott MD PhD LAB BLOOD ORDERABLES Fin al Result Performing Organization Address [facility] de Phone Number [facility] Department [place] [address] * (ABNORMAL) Basic metabolic panel (05/14/2025 3:47 AM CDT) Pathologist [facility] Sodium 136 135 - 145 mmol/L Potassium, pl 4.6 3.3 - 4.9 mmol/L [facility] Chloride 98 97 - 110 mmol/L [facility] CO2 32 22 - 32 mmol/L [facility] Anion gap 6 2 - 15 mmol/L [facility] BUN 36(H) 6 - 25 mg/dL [facility] Creatinine 0.95 0.80 - 1.30 mg/dL [facility] Glucose 156 70 - 199 mg/dL [facility] Comment: Interpretive Data Fasting glucose >/= 126 [...] 8.5 8.5 - 10.3 mg/dL [facility] Blood 05/14/2025 3:47 AM CDT 05/14/2025 4:06 AM CDT Tania Lott MD PhD LAB BLOOD ORDERABLES Fin al Result Performing Organization Address [facility] Co de Phone Number [facility] [place] [address] * POCT glucose (05/14/2025 3:37 AM CDT) Glucose, POC 183 70 - 199 mg/dL Blood 05/14/2025 3:37 AM CDT 05/14/2025 3:37 AM CDT Tania Lott MD PhD LAB POCT ORDERABLES - DE VICE Final Result Performing Organization Address [facility] Co de Phone Number [facility] Department [place] [address] * POCT glucose (05/14/2025 12:34 AM CDT) Glucose, POC 179 70 - 199 mg/dL Blood 05/14/2025 12:3 4 AM CDT 05/14/2025 12:34 AM CDT Tania Lott MD PhD LAB POCT ORDERABLES - DE VICE Final Result Performing Organization Address [facility] Co de Phone Number [facility] [place] [address] * Collection task for HLA Typing, Buccal (05/13/2025 8:50 PM CDT) Pathologist [facility] HLA typing, buccal collection Received Buccal swab 05/13/2025 8:50 PM CDT 05/14/2025 10:10 AM CDT Narrative ANGELA DUNAWAY - 05/14/2025 10:10 AM CDT HLA initial and confirmatory typing cannot be collected at the same time. Ensure samples are collected separately. us Erika Chandler DO LAB BODY FLUIDS AND STOOLS ORDER BIANKA Final Result Performing Organization Address [facility] [place] [address] * Collection Task for HLA Typing 1 (05/13/2025 8:50 PM CDT) [facility] HLA Class I DNA (ABC) Recipient Received Blood 05/13/2025 8:50 PM CDT 05/14/2025 10:10 AM CDT us Erika Chandler DO LAB BLOOD ORDERABLES Final Resul t Performing Organization Address [facility] de Phone Number [facility] [place] [address] * Collection Task for HLA Antibody Screen (05/13/2025 8:50 PM CDT) [facility] HLA Antibody Screen By Single Antigen Received Blood 05/13/2025 8:50 PM CDT 05/14/2025 10:10 AM CDT us Erika Chandler DO LAB BLOOD ORDERABLES Final Resul t Performing Organization Address [facility] Co de Phone Number [facility] [place] [address] * (ABNORMAL) Lactate dehydrogenase (LD) (05/13/2025 8:50 PM CDT) Lactate dehydrogenase (LDH) 3,125(H) 100 - 250 Units/L Comment:Repeated on Dilution Blood 05/13/2025 8:50 PM CDT 05/13/2025 10:16 PM CDT us Fab Eden ACCOUNT STRATEGIST LAB BLOOD ORDERABLES Final R esult [facility] [place] [address] * HLA Confirmatory Typing (05/13/2025 8:44 PM [...] as IVD tests and validated by the [facility]. Testing performed at the [facility], [address] [place] [address], 5th floor, [place], [address]. [facility] # [id number]. Earnestine Onofre, Ph.D., Electrical And Instrumentation Manager, HLA Laboratory Santhosh Gabriel M.D., Ph.D., Professor Of Nursing, HLA Laboratory Kimberley Vega, Ph.D., CLIA Professor Of Nursing, [facility] Current methodology comment last [...] sequencing (NGS) using the AllType NGS assay ([employer] on the [employer] platform, which outperforms the Taiwo Sequence-based typing (SBT) but is not FDA approved for HLA typing. The sequence-specific primers (SSP) method may be employed to resolve ambiguity using FDA approved IVD products ([place] SSP) as indicated. The performance of the above methods are validated by the [facility]. For typing results reported using [...] viewed at http://hla.alleles.org/alleles/g_groups.html. Testing performed at the [facility], [facility], [address]th floor, [place], [address]. [facility] # [id number]. Earnestine Onofre, Ph.D., Electrical And Instrumentation Manager, HLA Laboratory Santhosh Gabriel M.D., Ph.D., Professor Of Nursing, [facility] Laboratory Kimberley Vega, Ph.D., CLIA Professor Of Nursing, [facility] Current methodology comment last [...] a method developed and validated by the [facility] HLA laboratory based on an FDA-approved IVD kit (First[employer]creen Single-Antigen, [employer] [place], [place]). All patient serum samples are pretreated with EDTA before the screen to prevent complement interference. Additional serum treatments, such as adsorption and DTT treatment, may be performed as indicated. Interpretive comments: Low risk: MFI [id number]. Moderate risk: MFI [id number]. Increased risk: MFI >/= 5000. The presence [...] antigens to avoid. Testing performed at the [facility], [facility] [address], 5th floor, [facility], [place], [address]. CLIA # [id number]. Earnestine Onofre, Ph.D., Electrical And Instrumentation Manager, HLA Laboratory Santhosh Gabriel M.D., Ph.D., Professor Of Nursing, [facility] Laboratory Kimberley Vega, Ph.D., BEHZAD Professor Of Nursing, [facility] Current methodology and interpretive comments last revised on 11/01/2022. us Erika Chandler DO LAB BLOOD ORDERABLES Final Resul t [facility] * POCT glucose (05/13/2025 8:32 PM CDT) Glucose, POC 190 70 - 199 mg/dL Blood 05/13/2025 8:32 PM CDT 05/13/2025 8:32 PM CDT us Tania Lott MD PhD LAB POCT ORDERABLES - DE VICE Final Result Performing Organization Address [facility] Co de Phone Number [facility] [place] [address] * XR Chest 1 View (05/13/2025 7:46 [...] pneumothorax. Electronically signed by: Chavo Spence M.D. us Erika Chandler DO IMG XR PROCEDURES Final Result * Potassium, whole blood (05/13/2025 4:20 PM CDT) Potassium, bld 3.6 3.3 - 4.9 mmol/L Blood 05/13/2025 4:20 PM CDT 05/13/2025 4:25 PM CDT Sandy Meraz NP LAB BLOOD ORDERABLES Final R esult [facility] [place] [address] * eGFR (05/13/2025 4:20 PM CDT) eGFR [...] CDT 05/13/2025 4:35 PM CDT Fab Eden ACCOUNT STRATEGIST LAB BLOOD ORDERABLES Final R esult Performing Organization Address [facility]/ZIP Co de Phone Number [facility] [place] [address] * (ABNORMAL) Uric acid (05/13/2025 4:20 PM CDT) Uric acid 1.8(L) 3.0 - 8.0 mg/dL Blood 05/13/2025 4:20 PM CDT 05/13/2025 4:25 PM CDT Narrative [facility] - 05/13/2025 5:11 PM CDT Q8hr TLS labs Sandy Meraz ACCOUNT STRATEGIST LAB BLOOD ORDERABLES Final R esult Performing Organization Address [facility] Co de Phone Number [facility] [place] [address] * Phosphorus (05/13/2025 4:20 PM CDT) Pathologist [facility] Phosphorus, pl 3.6 2.3 - 4.5 mg/dL Blood 05/13/2025 4:20 PM CDT 05/13/2025 4:25 PM CDT Sandy Meraz NP LAB BLOOD ORDERABLES Final R esult Performing Organization Address [facility] Co de Phone Number [facility] [place] [address] * (ABNORMAL) Hepatic function panel (05/13/2025 4:20 PM CDT) Bilirubin, total 0.9 0.1 - 1.2 mg/dL Bilirubin, direct 0.4(H) 0.1 - 0.3 mg/dL [facility] Protein, pl 5.5(L) 6.5 - 8.5 g/dL [facility] Albumin 3.1(L) 3.5 - 5.0 g/dL [facility] Alk phos 75 40 - 130 Units/L [facility] ALT 19 7 - 55 Units/L [facility] AST 98(H) 10 - 50 Units/L [facility] Blood 05/13/2025 4:20 PM CDT 05/13/2025 4:25 PM CDT us Alex Yost MD LAB BLOOD ORDERABLES F inal Result [facility] [place] [address] * (ABNORMAL) Basic metabolic panel (05/13/2025 4:20 PM CDT) Sodium 139 135 - 145 mmol/L Potassium, pl 4.3 3.3 - 4.9 mmol/L [facility] Chloride 98 97 - 110 mmol/L [facility] CO2 30 22 - 32 mmol/L [facility] Anion gap 11 2 - 15 mmol/L [facility] BUN 31(H) 6 - 25 mg/dL [facility] Creatinine 0.98 0.80 - 1.30 mg/dL [facility] Glucose 218(H) 70 - 199 mg/dL [facility] Comment: Interpretive Data Fasting glucose >/= 126 [...] 2022. Calcium 9.7 8.5 - 10.3 mg/dL [facility] Blood 05/13/2025 4:20 PM CDT 05/13/2025 4:25 PM CDT us Fab Eden ACCOUNT STRATEGIST LAB BLOOD ORDERABLES Final R esult Performing Organization Address [facility] Co de Phone Number [facility] [place] [address] * (ABNORMAL) POCT glucose (05/13/2025 3:25 PM CDT) [facility] Glucose, POC 250(H) 70 - 199 mg/dL Blood 05/13/2025 3:25 PM CDT 05/13/2025 3:25 PM CDT us Alex Yost MD LAB POCT ORDERABLES - DEVICE Final Result Performing Organization Address [facility] de Phone Number [facility] Department [place] [address] * (ABNORMAL) Immature platelet fraction (05/13/2025 1:22 PM CDT) [facility] IPF 19.7(H) 1.6 - 10.1 % Blood 05/13/2025 1:22 PM CDT 05/13/2025 1:40 PM CDT Alex Yost MD LAB BLOOD ORDERABLES F inal Result Performing Organization Address [facility] de Phone Number [facility] [place] [address] * Blood product CBC (05/13/2025 1:22 PM CDT) [facility] WBC, product 354.9 K/cumm Comment:Critical value greene d within last 72 hrs RBC, product 0.34 M/cumm [facility] Hgb, product 0.8 g/dL [facility] Comment:This result has been called to SOP by [email or web address] on 05/13/2025 13:46:11, and has not been read back. donor sample. Hct, product 3.8 % [facility] MCV, product 111.8 fL [facility] Plt, product 48 K/cumm [facility] Comment:Platelet count confi rmed by additional testing. Critical platelet count threshold determined by patient location: Outpatient:<50 K/cumm , Inpatient adults:<20 K/cumm , Inpatient pediatric:<25 K/cumm, BMT service:<10 K/cumm Neut pct, product 58.2 % [facility] ImmGran pct, product 0.0 % [facility] Lymph pct, product 9.3 % [facility] Garland pct, product 32.5 % [facility] Eos pct, product 0.0 % [facility] Baso pct, product 0.0 % [facility] Blood 05/13/2025 1:22 PM CDT 05/13/2025 1:37 PM CDT Alex Yost MD LAB BLOOD ORDERABLES F inal Result [facility] [place] [address] * (ABNORMAL) CBC with auto differential (05/13/2025 1:22 PM CDT) [facility] Signature WBC 47.41(H) 3.80 - 9.90 K/cumm Hgb 8.3(L) 13.0 - 17.5 g/dL [facility] Comment:leukocyte reduction procedure Hemoglobin delta due to apparent blood transfusion. Hct 23.9(L) 38.9 - 50.3 % [facility] Plt 15(C) 150 - 400 K/cumm [facility] Comment: leukocyte reduction procedure Platelet count confirmed by additional testing. Critical platelet count threshold determined by patient location: Outpatient:<50 K/cumm , Inpatient adults:<20 K/cumm , Inpatient pediatric:<25 K/cumm, BMT service:<10 K/cummNo clot detected in sample.Repeated and Verified.Verified by peripheral smear. MPV 9.8 9.1 - 12.3 fL [facility] RBC 2.61(L) 4.30 - 5.80 M/cumm [facility] MCV 91.6 81.3 - 96.4 fL [facility] Comment:leukocyte reduction procedure MCV delta due to apparent blood transfusion. MCH 31.8 27.1 - 33.3 pg [facility] MCHC 34.7 32.3 - 35.7 g/dL [facility] RDW CV 19.9(H) 11.1 - 14.9 % [facility] RDW SD 63.2(H) 35.7 - 48.1 fL [facility] NRBC abs 8.59(H) 0.00 - 0.01 K/cumm [facility] Blood 05/13/2025 1:22 PM CDT 05/13/2025 1:37 PM CDT Narrative [facility] - 05/13/2025 2:27 PM CDT Instructions:->Post procedure Alex Yost MD LAB BLOOD ORDERABLES F inal Result [facility] [place] [address] * (ABNORMAL) Manual Differential (05/13/2025 1:22 PM CDT) Differential Manual Cells Counted 116 [facility] Neutrophil abs 29.92(H) 1.50 - 6.50 K/cumm [facility] Imm gran abs 4.08(H) 0.00 - 0.10 K/cumm [facility] Lymphocyte abs 1.61 0.80 - 3.30 K/cumm [facility] Monocyte abs 0.81(H) 0.20 - 0.80 K/cumm [facility] Basophil abs 1.61(H) 0.00 - 0.10 K/cumm [facility] Neutrophil pct 63.1 % [facility] Comment: Interpretive Data Percent cell count reference ranges are not reported, since discordance with absolute values may lead to misinterpretation of CBC data. Current Interpretive Data was last revised on 2018. Lymphocyte pct 3.4 % [facility] Comment: Interpretive Data Percent cell count reference ranges are not reported, since discordance with absolute values may lead to misinterpretation of CBC data. Current Interpretive Data was last revised on 2018. Monocyte pct 1.7 % [facility] Comment: Interpretive Data Percent cell count reference ranges are not reported, since discordance with absolute values may lead to misinterpretation of CBC data. Current Interpretive Data was last revised on 2018. Basophil pct 3.4 % [facility] Comment: Interpretive Data Percent cell count reference ranges are not reported, since discordance with absolute values may lead to misinterpretation of CBC data. Current Interpretive Data was last revised on 2018. Myelocyte pct 2.6(H) 0.0 - 0.0 % [facility] Promyelocyte pct 6.0(H) 0.0 - 0.0 % [facility] Blast pct 19.8(C) 0.0 - 0.0 [facility] Comment:Critical value greene d within last 30 days. RBC morphology Present(A) [facility] Anisocytosis Moderate(A ) [facility] Poikilocytosis Slight(A) [facility] Macrocytes 8-15/HPF(A ) [facility] Schistocytes 1-2/HPF(A) [facility] Spherocytes 3-7/HPF(A) [facility] Target cells 3-7/HPF(A) [facility] Platelet estimate Decreased( A) [facility] Blood 05/13/2025 1:22 PM CDT 05/13/2025 1:40 PM CDT us Alex Yost MD LAB BLOOD ORDERABLES F inal Result [facility] [place] [address] * (ABNORMAL) POCT glucose (05/13/2025 1:01 PM CDT) Glucose, POC 271(H) 70 - 199 mg/dL Blood 05/13/2025 1:01 PM CDT 05/13/2025 1:01 PM CDT Result [facility] Alex Yost MD LAB POCT ORDERABLES - DEVICE Final Result Performing Organization Address [facility] Co de Phone Number [facility] [place] [address] * (ABNORMAL) Immature platelet fraction (05/13/2025 11:35 AM CDT) IPF 20.2(H) 1.6 - 10.1 % Blood 05/13/2025 11:3 5 AM CDT 05/13/2025 11:49 AM CDT Result [facility] Alex Yost MD LAB BLOOD ORDERABLES F inal Result Performing Organization Address [facility] de Phone Number [facility] [place] [address] * (ABNORMAL) Calcium, ionized, whole blood (05/13/2025 11:35 AM CDT) Pathologist [facility] Ca, ionized, bld 4.32(L) 4.50 - 5.10 mg/dL Blood 05/13/2025 11:3 5 AM CDT 05/13/2025 11:40 AM CDT Narrative [facility] - 05/13/2025 11:47 AM CDT For apheresis nurse only, draw mid procedure iCa Alex Yost MD LAB BLOOD ORDERABLES F inal Result Performing Organization Address [facility] Co de Phone Number [facility] [place] [address] * (ABNORMAL) CBC without differential (05/13/2025 11:35 AM CDT) WBC 72.34(C) 3.80 - 9.90 K/cumm Comment:Critical value greene d within last 72 hrs Hgb 7.6(L) 13.0 - 17.5 g/dL [facility] Hct 21.2(L) 38.9 - 50.3 % [facility] Plt 22(C) 150 - 400 K/cumm [facility] Comment:Platelet count confi rmed by additional testing. Critical platelet count threshold determined by patient location: Outpatient:<50 K/cumm , Inpatient adults:<20 K/cumm , Inpatient pediatric:<25 K/cumm, BMT service:<10 K/cumm MPV 11.8 9.1 - 12.3 fL [facility] RBC 2.30(L) 4.30 - 5.80 M/cumm [facility] MCV 92.2 81.3 - 96.4 fL [facility] MCH 33.0 27.1 - 33.3 pg [facility] MCHC 35.8(H) 32.3 - 35.7 g/dL [facility] RDW CV 19.9(H) 11.1 - 14.9 % [facility] RDW SD 64.0(H) 35.7 - 48.1 fL [facility] NRBC abs 9.24(H) 0.00 - 0.01 K/cumm [facility] Blood 05/13/2025 11:3 5 AM CDT 05/13/2025 11:46 AM CDT Narrative [facility] - 05/13/2025 12:29 PM CDT Instructions:->Mid Procedure Alex Yost MD LAB BLOOD ORDERABLES E dited Result - Final [facility] [place] [address] * POCT glucose (05/13/2025 11:30 AM CDT) [facility] Glucose, POC 198 70 - 199 mg/dL Blood 05/13/2025 11:3 0 AM CDT 05/13/2025 11:30 AM CDT Alex Yost MD LAB POCT ORDERABLES - DEVICE Final Result [facility] [place] [address] * (ABNORMAL) Immature platelet fraction (05/13/2025 9:53 AM CDT) [facility] IPF 24.5(H) 1.6 - 10.1 % Blood 05/13/2025 9:53 AM CDT 05/13/2025 10:21 AM CDT Alex Yost MD LAB BLOOD ORDERABLES F inal Result Performing Organization Address [facility] Co de Phone Number [facility] Department [place] [address] * (ABNORMAL) CBC with auto differential (05/13/2025 9:53 AM CDT) [facility] WBC 114.86(C) 3.80 - 9.90 K/cumm Comment:Critical value greene d within last 72 hrs Hgb 7.5(L) 13.0 - 17.5 g/dL [facility] Hct 22.3(L) 38.9 - 50.3 % [facility] Plt 25(C) 150 - 400 K/cumm [facility] Comment:Platelet count confi rmed by additional testing. Critical platelet count threshold determined by patient location: Outpatient:<50 K/cumm , Inpatient adults:<20 K/cumm , Inpatient pediatric:<25 K/cumm, BMT service:<10 K/cumm MPV Not Measured 9.1 - 12.3 fL [facility] RBC 2.37(L) 4.30 - 5.80 M/cumm [facility] MCV 94.1 81.3 - 96.4 fL [facility] MCH 31.6 27.1 - 33.3 pg [facility] MCHC 33.6 32.3 - 35.7 g/dL [facility] RDW CV 20.0(H) 11.1 - 14.9 % [facility] RDW SD 66.2(H) 35.7 - 48.1 fL [facility] NRBC abs 9.33(H) 0.00 - 0.01 K/cumm [facility] Blood 05/13/2025 9:53 AM CDT 05/13/2025 10:15 AM CDT Narrative [facility] - 05/13/2025 11:58 AM CDT If not drawn in last 6 hours Instructions:->Pre procedure Alex Yost MD LAB BLOOD ORDERABLES F inal Result [facility] [place] [address] * (ABNORMAL) Manual Differential (05/13/2025 9:53 AM CDT) Differential Manual Cells Counted 111 [facility] Neutrophil abs 19.64(H) 1.50 - 6.50 K/cumm [facility] Imm gran abs 4.13(H) 0.00 - 0.10 K/cumm [facility] Lymphocyte abs 7.24(H) 0.80 - 3.30 K/cumm [facility] Monocyte abs 8.27(H) 0.20 - 0.80 K/cumm [facility] Eosinophil abs 1.03(H) 0.00 - 0.50 K/cumm [facility] Basophil abs 3.10(H) 0.00 - 0.10 K/cumm [facility] Neutrophil pct 17.1 % [facility] Comment: Interpretive Data Percent cell count reference ranges are not reported, since discordance with absolute values may lead to misinterpretation of CBC data. Current Interpretive Data was last revised on 2018. Lymphocyte pct 6.3 % [facility] Comment: Interpretive Data Percent cell count reference ranges are not reported, since discordance with absolute values may lead to misinterpretation of CBC data. Current Interpretive Data was last revised on 2018. Monocyte pct 7.2 % [facility] Comment: Interpretive Data Percent cell count reference ranges are not reported, since discordance with absolute values may lead to misinterpretation of CBC data. Current Interpretive Data was last revised on 2018. Eosinophil pct 0.9 % [facility] Comment: Interpretive Data Percent cell count reference ranges are not reported, since discordance with absolute values may lead to misinterpretation of CBC data. Current Interpretive Data was last revised on 2018. Basophil pct 2.7 % [facility] Comment: Interpretive Data Percent cell count reference ranges are not reported, since discordance with absolute values may lead to misinterpretation of CBC data. Current Interpretive Data was last revised on 2018. Myelocyte pct 1.8(H) 0.0 - 0.0 % [facility] Promyelocyte pct 1.8(H) 0.0 - 0.0 % [facility] Blast pct 62.2(C) 0.0 - 0.0 [facility] Comment:Critical value greene d within last 30 days. RBC morphology Present(A) [facility] Anisocytosis Moderate(A ) [facility] Poikilocytosis Slight(A) [facility] Macrocytes 3-7/HPF(A) [facility] Schistocytes 1-2/HPF(A) [facility] Platelet estimate Decreased( A) [facility] Blood 05/13/2025 9:53 AM CDT 05/13/2025 10:21 AM CDT us Alex Yost MD LAB BLOOD ORDERABLES F inal Result Performing Organization Address City/[facility]/ZIP Co de Phone Number [facility] [place] [address] * Transfuse RBC (05/13/2025 9:25 AM CDT) Blood us Sandy Meraz NP BLOOD TRANSFUSION ORDERABLES Final Result [facility] [place] [address] * Transfuse RBC (05/13/2025 8:22 AM CDT) Blood us Sandy Meraz ACCOUNT STRATEGIST BLOOD TRANSFUSION ORDERABLES Edited Result - Final Performing Organization Address [facility] Co de Phone Number [facility] [place] [address] * POCT glucose (05/13/2025 7:46 AM CDT) Glucose, POC 180 70 - 199 mg/dL Blood 05/13/2025 7:46 AM CDT 05/13/2025 7:46 AM CDT us Alex Yost MD LAB POCT ORDERABLES - DEVICE Final Result Performing Organization Address [facility] Co de Phone Number [facility] [place] [address] * Potassium, whole blood (05/13/2025 7:23 AM CDT) Potassium, bld 3.7 3.3 - 4.9 mmol/L Blood 05/13/2025 7:23 AM CDT 05/13/2025 8:04 AM CDT us Sandy Meraz NP LAB BLOOD ORDERABLES Final R esult Performing Organization Address [facility] Co de Phone Number [facility] [place] [address] * eGFR (05/13/2025 7:23 AM CDT) eGFR [...] 05/13/2025 8:08 AM CDT us Fab Eden ACCOUNT STRATEGIST LAB BLOOD ORDERABLES Final R esult Performing Organization Address [facility] Co de Phone Number [facility] [place] [address] * (ABNORMAL) Uric acid (05/13/2025 7:23 AM CDT) Uric acid 2.5(L) 3.0 - 8.0 mg/dL Blood 05/13/2025 7:23 AM CDT 05/13/2025 8:08 AM CDT Vanda [facility] - 05/13/2025 8:41 AM CDT Q8hr TLS labs Sandy Meraz NP LAB BLOOD ORDERABLES Final R esult Performing Organization Address City/[facility] Co de Phone Number [facility] Department [place] [address] * Phosphorus (05/13/2025 7:23 AM CDT) Phosphorus, pl 3.7 2.3 - 4.5 mg/dL Blood 05/13/2025 7:23 AM CDT 05/13/2025 8:08 AM CDT Sandy Meraz NP LAB BLOOD ORDERABLES Final R esult Performing Organization Address [facility]/ZIP Co de Phone Number [facility] Department [place] [address] * Magnesium (05/13/2025 7:23 AM CDT) [facility] Magnesium 2.0 1.4 - 2.5 mg/dL Blood 05/13/2025 7:23 AM CDT 05/13/2025 8:08 AM CDT us Alex Yost MD LAB BLOOD ORDERABLES F inal Result Performing Organization Address [facility] Co de Phone Number [facility] Department [place] [address] * (ABNORMAL) Lactate dehydrogenase (LD) (05/13/2025 7:23 AM CDT) [facility] Lactate dehydrogenase (LDH) 4,145(H) 100 - 250 Units/L Comment:Repeated on Dilution Blood 05/13/2025 7:23 AM CDT 05/13/2025 8:08 AM CDT us Fab Eden ACCOUNT STRATEGIST LAB BLOOD ORDERABLES Final R esult Performing Organization Address [facility] Co de Phone Number [facility] Department [place] [address] * (ABNORMAL) Basic metabolic panel (05/13/2025 7:23 AM CDT) [facility] Sodium 137 135 - 145 mmol/L Potassium, pl 5.2(H) 3.3 - 4.9 mmol/L [facility] Comment:Potassium results ma y be falsely elevated in the presence of leukocytosis: WBC >50 K/cumm. Suggest sending whole blood Potassium, if available. Chloride 99 97 - 110 mmol/L [facility] CO2 31 22 - 32 mmol/L [facility] Anion gap 7 2 - 15 mmol/L [facility] BUN 28(H) 6 - 25 mg/dL [facility] Creatinine 1.00 0.80 - 1.30 mg/dL [facility] Glucose 160 70 - 199 mg/dL [facility] Comment: Interpretive Data Fasting glucose >/= 126 [...] 2022. Calcium 8.3(L) 8.5 - 10.3 mg/dL [facility] Blood 05/13/2025 7:23 AM CDT 05/13/2025 8:08 AM CDT us Fab Eden ACCOUNT STRATEGIST LAB BLOOD ORDERABLES Edited Result - Final Performing Organization Address City/[facility]/ZIP Co de Phone Number [facility] Department [place] [address] * Prepare RBC: 1 Units (05/13/2025 6:16 AM CDT) [facility] Signature Product code [id number] Unit Number [id number] * [facility] Product Blood Type BPOS [facility] Dispense Status PRESUMED TRANSFUSED [facility] Blood 05/13/2025 6:16 AM CDT 05/13/2025 6:16 AM CDT Narrative [facility] - 05/13/2025 8:00 PM CDT Are special requirements needed? (All products are leukoreduced and CMV- safe)- >No Date required:-[id number] LRRBC # of [id number] Reasons:-Hgb <7 g/dL} us Sandy Meraz ACCOUNT STRATEGIST BLOOD BANK PRODUCT ORDERABLE S Final Result Performing Organization Address City/[facility]/ZIP Co de Phone Number [facility] [place] [address] * (ABNORMAL) POCT glucose (05/13/2025 3:48 AM CDT) [facility] Glucose, POC 212(H) 70 - 199 mg/dL Comment:Glu2: RN/MD Notified Glucose comment 1 Glu2: RN/MD Notified [facility] Blood 05/13/2025 3:48 AM CDT 05/13/2025 3:48 AM CDT us Alex Yost MD LAB POCT ORDERABLES - DEVICE Final Result [facility] [place] [address] * (ABNORMAL) Immature platelet fraction (05/13/2025 1:57 AM CDT) [facility] IPF 22.3(H) 1.6 - 10.1 % Blood 05/13/2025 1:57 AM CDT 05/13/2025 2:18 AM CDT us Sandy Meraz NP LAB BLOOD ORDERABLES Final R esult Performing Organization Address City/[facility]/ZIP Co de Phone Number [facility] [place] [address] * (ABNORMAL) CBC with auto differential (05/13/2025 1:57 AM CDT) [facility] WBC 123.84(C) 3.80 - 9.90 K/cumm Comment:Critical value greene d within last 72 hrs Hgb 6.5(L) 13.0 - 17.5 g/dL [facility] Hct 18.2(L) 38.9 - 50.3 % [facility] Plt 24(C) 150 - 400 K/cumm [facility] Comment:Platelet count confi rmed by additional testing. Critical platelet count threshold determined by patient location: Outpatient:<50 K/cumm , Inpatient adults:<20 K/cumm , Inpatient pediatric:<25 K/cumm, BMT service:<10 K/cumm MPV Not Measured 9.1 - 12.3 fL [facility] RBC 1.93(L) 4.30 - 5.80 M/cumm [facility] MCV 94.3 81.3 - 96.4 fL [facility] MCH 33.7(H) 27.1 - 33.3 pg [facility] MCHC 35.7 32.3 - 35.7 g/dL [facility] RDW CV 20.9(H) 11.1 - 14.9 % [facility] RDW SD 68.7(H) 35.7 - 48.1 fL [facility] NRBC abs 10.23(H) 0.00 - 0.01 K/cumm [facility] Morphologic Screen Results confirmed by manual morphology review. [facility] Blood 05/13/2025 1:57 AM CDT 05/13/2025 2:13 AM CDT us Sandy Meraz NP LAB BLOOD ORDERABLES Edited Result - Final [facility] [place] [address] * (ABNORMAL) Manual Differential (05/13/2025 1:57 AM CDT) Differential Manual Cells Counted 112 [facility] Neutrophil abs 30.96(H) 1.50 - 6.50 K/cumm [facility] Imm gran abs 4.46(H) 0.00 - 0.10 K/cumm [facility] Lymphocyte abs 5.57(H) 0.80 - 3.30 K/cumm [facility] Monocyte abs 2.23(H) 0.20 - 0.80 K/cumm [facility] Basophil abs 4.46(H) 0.00 - 0.10 K/cumm [facility] Neutrophil pct 25.0 % [facility] Comment: Interpretive Data Percent cell count reference ranges are not reported, since discordance with absolute values may lead to misinterpretation of CBC data. Current Interpretive Data was last revised on 2018. Lymphocyte pct 4.5 % [facility] Comment: Interpretive Data Percent cell count reference ranges are not reported, since discordance with absolute values may lead to misinterpretation of CBC data. Current Interpretive Data was last revised on 2018. Monocyte pct 1.8 % [facility] Comment: Interpretive Data Percent cell count reference ranges are not reported, since discordance with absolute values may lead to misinterpretation of CBC data. Current Interpretive Data was last revised on 2018. Basophil pct 3.6 % [facility] Comment: Interpretive Data Percent cell count reference ranges are not reported, since discordance with absolute values may lead to misinterpretation of CBC data. Current Interpretive Data was last revised on 2018. Myelocyte pct 3.6(H) 0.0 - 0.0 % [facility] Blast pct 61.5(C) 0.0 - 0.0 [facility] Comment:Critical value greene d within last 30 days. Blood 05/13/2025 1:57 AM CDT 05/13/2025 2:18 AM CDT us Sandy Meraz NP LAB BLOOD ORDERABLES Final R esult Performing Organization Address City/[facility]/ZIP Co de Phone Number [facility] [place] [address] * RPR Blood (05/13/2025 1:57 AM CDT) RPR Nonreactive Nonreactive Blood 05/13/2025 1:57 AM CDT 05/13/2025 2:13 AM CDT us Alex Yost MD LAB MICROBIOLOGY - GEN ERAL ORDERABLES Final Result Performing Organization Address City/[facility]/ZIP Co de Phone Number [facility] [place] [address] * (ABNORMAL) Lactate dehydrogenase (LD) (05/13/2025 1:57 AM CDT) [facility] Lactate dehydrogenase (LDH) 3,935(H) 100 - 250 Units/L Comment:Repeated on Dilution Blood 05/13/2025 1:57 AM CDT 05/13/2025 2:08 AM CDT Alex Yost MD LAB BLOOD ORDERABLES F inal Result Performing Organization Address [facility] Co de Phone Number [facility] [place] [address] * (ABNORMAL) Ferritin (05/13/2025 1:57 AM CDT) [facility] Ferritin 2,626(H) 30 - 400 ng/mL Comment:Repeated on Dilution Blood 05/13/2025 1:57 AM CDT 05/13/2025 2:08 AM CDT us Fab Eden ACCOUNT STRATEGIST LAB BLOOD ORDERABLES Final R esult Performing Organization Address [facility] de Phone Number [facility] [place] [address] * (ABNORMAL) POCT glucose (05/13/2025 12:11 AM CDT) [facility] Glucose, POC 200(H) 70 - 199 mg/dL Blood 05/13/2025 12:1 1 AM CDT 05/13/2025 12:11 AM CDT Alex Yost MD LAB POCT ORDERABLES - DEVICE Final Result Performing Organization Address [facility] de Phone Number [facility] [place] [address] * Potassium, whole blood (05/13/2025 12:04 AM CDT) [facility] Potassium, bld 3.3 3.3 - 4.9 mmol/L Blood 05/13/2025 12:0 4 AM CDT 05/13/2025 12:21 AM CDT us Sandy Meraz NP LAB BLOOD ORDERABLES Final R esult Performing Organization Address [facility]/ZIP Co de Phone Number [facility] [place] [address] * eGFR (05/13/2025 12:04 AM CDT) eGFR [...] ORDERABLES F inal Result Performing Organization Address City/[facility]/ZIP Co de Phone Number [facility] Department [place] [address] * Critical Result Callback Chemistry (05/13/2025 12:04 AM CDT) Date Notified [id number] Time Notified 107 [facility] TestName Potassium Plas [facility] Called/Read Back Candy Burns [facility] Credentials RN [facility] Called By NUNO [facility] Blood 05/13/2025 12:0 4 AM CDT 05/13/2025 12:27 AM CDT us Alex Yost MD LAB BLOOD ORDERABLES F inal Result Performing Organization Address City/[facility] Co de Phone Number [facility] [place] [address] * Uric acid (05/13/2025 12:04 AM CDT) Uric acid 3.7 3.0 - 8.0 mg/dL Blood 05/13/2025 12:0 4 AM CDT 05/13/2025 12:22 AM CDT Narrative [facility] - 05/13/2025 1:04 AM CDT Q8hr TLS labs us Sandy Meraz NP LAB BLOOD ORDERABLES Final R esult Performing Organization Address [facility] de Phone Number [facility] [place] [address] * Phosphorus (05/13/2025 12:04 AM CDT) Phosphorus, pl 3.9 2.3 - 4.5 mg/dL Blood 05/13/2025 12:0 4 AM CDT 05/13/2025 12:22 AM CDT us Sandy Meraz NP LAB BLOOD ORDERABLES Final R esult Performing Organization Address [facility] Co de Phone Number [facility] [place] [address] * (ABNORMAL) Basic metabolic panel (05/13/2025 12:04 AM CDT) Sodium 134(L) 135 - 145 mmol/L Potassium, pl 6.4(C) 3.3 - 4.9 mmol/L [facility] Comment: Repeated and Verified Potassium results may be falsely elevated in the presence of leukocytosis: WBC >50 K/cumm. Suggest sending whole blood Potassium, if available. Chloride 97 97 - 110 mmol/L [facility] CO2 31 22 - 32 mmol/L [facility] Anion gap 6 2 - 15 mmol/L [facility] BUN 24 6 - 25 mg/dL [facility] Creatinine 1.04 0.80 - 1.30 mg/dL [facility] Glucose 177 70 - 199 mg/dL [facility] Comment: Interpretive Data Fasting glucose >/= 126 [...] 2022. Calcium 8.3(L) 8.5 - 10.3 mg/dL [facility] Blood 05/13/2025 12:0 4 AM CDT 05/13/2025 12:22 AM CDT Alex Yost MD LAB BLOOD ORDERABLES E dited Result - Final [facility] [place] [address] * (ABNORMAL) Immature platelet fraction (05/12/2025 8:29 PM CDT) Pathologist [facility] IPF 20.3(H) 1.6 - 10.1 % Blood 05/12/2025 8:29 PM CDT 05/12/2025 8:57 PM CDT Fab Eden ACCOUNT STRATEGIST LAB BLOOD ORDERABLES Final R esult Performing Organization Address City/[facility] Co de Phone Number [facility] [place] [address] * (ABNORMAL) Blood smear review (05/12/2025 8:29 PM CDT) RBC morphology Present(A ) Anisocytosis Slight(A) [facility] Poikilocytosis Slight(A) [facility] Microcytes 3-7/HPF(A ) [facility] Macrocytes 3-7/HPF(A ) [facility] Schistocytes 1-2/HPF(A ) [facility] Platelet estimate Decreased (A) [facility] Blood 05/12/2025 8:29 PM CDT 05/12/2025 8:57 PM CDT Fab Eden ACCOUNT STRATEGIST LAB BLOOD ORDERABLES Final R esult Performing Organization Address City/[facility] Co de Phone Number [facility] [place] [address] * Potassium, whole blood (05/12/2025 8:29 PM CDT) Pathologist [facility] Potassium, bld 3.4 3.3 - 4.9 mmol/L Blood 05/12/2025 8:29 PM CDT 05/12/2025 8:43 PM CDT Fab Eden ACCOUNT STRATEGIST LAB BLOOD ORDERABLES Final R esult Performing Organization Address City/[facility] Co de Phone Number ANGELA [facility] [place] [address] * (ABNORMAL) CBC without differential (05/12/2025 8:29 PM CDT) WBC 134.00(C) 3.80 - 9.90 K/cumm Comment:Critical value greene d within last 72 hrs Hgb 7.0(L) 13.0 - 17.5 g/dL [facility] Hct 20.1(L) 38.9 - 50.3 % [facility] Plt 20(C) 150 - 400 K/cumm [facility] Comment:Platelet count confi rmed by additional testing. Critical platelet count threshold determined by patient location: Outpatient:<50 K/cumm , Inpatient adults:<20 K/cumm , Inpatient pediatric:<25 K/cumm, BMT service:<10 K/cumm MPV Not Measured 9.1 - 12.3 fL [facility] RBC 2.12(L) 4.30 - 5.80 M/cumm [facility] MCV 94.8 81.3 - 96.4 fL [facility] Comment:MCV delta due to laura arent blood transfusion. MCH 33.0 27.1 - 33.3 pg [facility] MCHC 34.8 32.3 - 35.7 g/dL [facility] RDW CV 20.4(H) 11.1 - 14.9 % [facility] RDW SD 68.2(H) 35.7 - 48.1 fL [facility] NRBC abs 11.04(H) 0.00 - 0.01 K/cumm [facility] Blood 05/12/2025 8:29 PM CDT 05/12/2025 8:53 PM CDT us Fab Eden ACCOUNT STRATEGIST LAB BLOOD ORDERABLES Final R esult Performing Organization Address City/[facility] Co de Phone Number [facility] [place] [address] * POCT glucose (05/12/2025 7:59 PM CDT) [facility] Signature Glucose, POC 191 70 - 199 mg/dL Blood 05/12/2025 7:59 PM CDT 05/12/2025 7:59 PM CDT us Alex Yost MD LAB POCT ORDERABLES - DEVICE Final Result Performing Organization Address [facility]/State/ZIP Co de Phone Number [facility] Department [place] [address] * (ABNORMAL) Lactate dehydrogenase (LD) (05/12/2025 5:29 PM CDT) [facility] Lactate dehydrogenase (LDH) 4,170(H) 100 - 250 Units/L Comment:Repeated on Dilution Blood 05/12/2025 5:29 PM CDT 05/12/2025 5:44 PM CDT us Fab Eden ACCOUNT STRATEGIST LAB BLOOD ORDERABLES Final R esult Performing Organization Address [facility] [place] [address] * Prepare RBC: 1 Units (05/12/2025 5:27 PM CDT) [facility] Product code [id number] Unit Number [id number] [facility] Product Blood Type BPOS [facility] HEALTHCARE Dispense Status PRESUMED TRANSFUSED [facility] Blood 05/12/2025 5:27 PM CDT 05/12/2025 5:27 PM CDT Narrative [facility] - 05/13/2025 6:00 AM CDT Are special requirements needed? (All products are leukoreduced and CMV- safe)- >No Date required:-[id number] LRRBC # of [id number] Reasons:-Hgb <7 g/dL} us Sandy Meraz ACCOUNT STRATEGIST BLOOD BANK PRODUCT ORDERABLE S Final Result Performing Organization Address [facility] Co de Phone Number [facility] [place], [place] [id number] * (ABNORMAL) Immature platelet fraction (05/12/2025 4:48 PM CDT) [facility] IPF 21.4(H) 1.6 - 10.1 % Blood 05/12/2025 4:48 PM CDT 05/12/2025 5:02 PM CDT Alex Yost MD LAB BLOOD ORDERABLES F inal Result Performing Organization Address [facility]/ZIP Co de Phone Number [facility] [place] [address] * Blood product CBC (05/12/2025 4:48 PM CDT) WBC, product 306.7 K/cumm Comment:Critical value greene d within last 72 hrs RBC, product 0.26 M/cumm [facility] Hgb, product 0.7 g/dL [facility] Comment:Critical value greene d within last 72 hrs This result has been called to SOP by [id number] on 05/12/2025 17:04:21. Cryo . Hct, product 2.7 % [facility] MCV, product 103.8 fL [facility] Plt, product 58 K/cumm [facility] Comment:This result has been called to SOP by [id number] on 05/12/2025 17:04:21. Cryo . Neut pct, product 9.0 % [facility] ImmGran pct, product 13.7 % [facility] Lymph pct, product 15.8 % [facility] Garland pct, product 61.5 % [facility] Eos pct, product 0.0 % [facility] Baso pct, product 0.0 % [facility] Blood 05/12/2025 4:48 PM CDT 05/12/2025 4:53 PM CDT Alex Yost MD LAB BLOOD ORDERABLES F inal Result ANGELA [facility] Department [place] [address] * (ABNORMAL) Potassium, whole blood (05/12/2025 4:48 PM CDT) Potassium, bld 3.2(L) 3.3 - 4.9 mmol/L Blood 05/12/2025 4:48 PM CDT 05/12/2025 4:53 PM CDT us Sandy Meraz ACCOUNT STRATEGIST LAB BLOOD ORDERABLES Final R esult [facility] [place] [address] * (ABNORMAL) Differential, auto (05/12/2025 4:48 PM CDT) Neutrophil abs 38.92(H) 1.50 - 6.50 K/cumm Imm gran abs 15.08(H) 0.00 - 0.10 K/cumm [facility] Lymphocyte abs 24.93(H) 0.80 - 3.30 K/cumm [facility] Monocyte abs 59.16(H) 0.20 - 0.80 K/cumm [facility] Eosinophil abs 0.40 0.00 - 0.50 K/cumm [facility] Basophil abs 0.22(H) 0.00 - 0.10 K/cumm [facility] Neutrophil pct 27.9 % [facility] Comment: Interpretive Data Percent cell count reference ranges are not reported, since discordance with absolute values may lead to misinterpretation of CBC data. Current Interpretive Data was last revised on 2018. Imm gran pct 10.9 % [facility] Comment: Interpretive Data Percent cell count reference ranges are not reported, since discordance with absolute values may lead to misinterpretation of CBC data. Current Interpretive Data was last revised on 2018. Lymphocyte pct 18.0 % [facility] Comment: Interpretive Data Percent cell count reference ranges are not reported, since discordance with absolute values may lead to misinterpretation of CBC data. Current Interpretive Data was last revised on 2018. Monocyte pct 42.7 % [facility] Comment: Interpretive Data Percent cell count reference ranges are not reported, since discordance with absolute values may lead to misinterpretation of CBC data. Current Interpretive Data was last revised on 2018. Eosinophil pct 0.3 % [facility] Comment: Interpretive Data Percent cell count reference ranges are not reported, since discordance with absolute values may lead to misinterpretation of CBC data. Current Interpretive Data was last revised on 2018. Basophil pct 0.2 % [facility] Comment: Interpretive Data Percent cell count reference ranges are not reported, since discordance with absolute values may lead to misinterpretation of CBC data. Current Interpretive Data was last revised on 2018. Blood 05/12/2025 4:48 PM CDT 05/12/2025 4:57 PM CDT us Alex Yost MD LAB BLOOD ORDERABLES F inal Result [facility] [place] [address] * (ABNORMAL) CBC with auto differential (05/12/2025 4:48 PM CDT) WBC 138.71(C) 3.80 - 9.90 K/cumm Comment:Critical value greene d within last 72 hrs Hgb 5.7(C) 13.0 - 17.5 g/dL [facility] Comment:Critical value greene d within last 72 hrs Hct 16.6(L) 38.9 - 50.3 % [facility] Plt 24(C) 150 - 400 K/cumm [facility] Comment: Consistent with previous result. Platelet count confirmed by additional testing. Critical platelet count threshold determined by patient location: Outpatient:<50 K/cumm , Inpatient adults:<20 K/cumm , Inpatient pediatric:<25 K/cumm, BMT service:<10 K/cumm MPV 10.4 9.1 - 12.3 fL [facility] RBC 1.66(L) 4.30 - 5.80 M/cumm [facility] MCV 100.0(H) 81.3 - 96.4 fL [facility] MCH 34.3(H) 27.1 - 33.3 pg [facility] MCHC 34.3 32.3 - 35.7 g/dL [facility] RDW CV 21.5(H) 11.1 - 14.9 % [facility] RDW SD 77.2(H) 35.7 - 48.1 fL [facility] NRBC abs 11.69(H) 0.00 - 0.01 K/cumm [facility] Blood 05/12/2025 4:48 PM CDT 05/12/2025 4:57 PM CDT Narrative [facility] - 05/12/2025 5:46 PM CDT Instructions:->Post procedure Alex Yost MD LAB BLOOD ORDERABLES F inal Result Performing Organization Address City/[facility]/ZIP Co de Phone Number [facility] [place] [address] * Uric acid (05/12/2025 4:48 PM CDT) Uric acid 5.8 3.0 - 8.0 mg/dL Blood 05/12/2025 4:48 PM CDT 05/12/2025 4:58 PM CDT Narrative [facility] - 05/12/2025 5:27 PM CDT Q8hr TLS labs Sandy Meraz NP LAB BLOOD ORDERABLES Final R esult Performing Organization Address [facility] Co de Phone Number [facility] [place] [address] * Phosphorus (05/12/2025 4:48 PM CDT) Phosphorus, pl 3.2 2.3 - 4.5 mg/dL Blood 05/12/2025 4:48 PM CDT 05/12/2025 4:58 PM CDT Sandy Meraz NP LAB BLOOD ORDERABLES Final R esult Performing Organization Address City/[facility]/ZIP Co de Phone Number [facility] [place] [address] * (ABNORMAL) POCT glucose (05/12/2025 3:37 PM CDT) Pathologist [facility] Glucose, POC 203(H) 70 - 199 mg/dL Blood 05/12/2025 3:37 PM CDT 05/12/2025 3:37 PM CDT Result [facility] Alex Yost MD LAB POCT ORDERABLES - DEVICE Final Result Performing Organization Address City/[facility] Co de Phone Number [facility] [place] [address] * (ABNORMAL) Immature platelet fraction (05/12/2025 2:38 PM CDT) [facility] IPF 22.1(H) 1.6 - 10.1 % Blood 05/12/2025 2:38 PM CDT 05/12/2025 2:52 PM CDT Result [facility] Alex Yost MD LAB BLOOD ORDERABLES F inal Result Performing Organization Address [facility] Co de Phone Number [facility] [place] [address] * (ABNORMAL) Calcium, ionized, whole blood (05/12/2025 2:38 PM CDT) [facility] Ca, ionized, bld 4.38(L) 4.50 - 5.10 mg/dL Blood 05/12/2025 2:38 PM CDT 05/12/2025 2:49 PM CDT [facility]ative [facility] - 05/12/2025 2:52 PM CDT For apheresis nurse only, please draw mid procedure ica Result [facility] Alex Yost MD LAB BLOOD ORDERABLES F inal Result Performing Organization Address [facility] Co de Phone Number [facility] [place] [address] * (ABNORMAL) Differential, auto (05/12/2025 2:38 PM [...] [facility] Neutrophil pct 20.1 % [facility] Comment: Interpretive Data Percent cell count reference ranges are not reported, since discordance with absolute values may lead to misinterpretation of CBC data. Current Interpretive Data was last revised on 2018. Imm gran pct 9.5 % [facility] Comment: Interpretive Data Percent cell count reference ranges are not reported, since discordance with absolute values may lead to misinterpretation of CBC data. Current Interpretive Data was last revised on 2018. Lymphocyte pct 23.4 % [facility] Comment: Interpretive Data Percent cell count reference ranges are not reported, since discordance with absolute values may lead to misinterpretation of CBC data. Current Interpretive Data was last revised on 2018. Monocyte pct 46.7 % [facility] Comment: Interpretive Data Percent cell count reference ranges are not reported, since discordance with absolute values may lead to misinterpretation of CBC data. Current Interpretive Data was last revised on 2018. Eosinophil pct 0.1 % [facility] Comment: Interpretive Data Percent cell count reference ranges are not reported, since discordance with absolute values may lead to misinterpretation of CBC data. Current Interpretive Data was last revised on 2018. Basophil pct 0.2 % [facility] Comment: Interpretive Data Percent cell count reference ranges are not reported, since discordance with absolute values may lead to misinterpretation of CBC data. Current Interpretive Data was last revised on 2018. Blood 05/12/2025 2:38 PM CDT 05/12/2025 2:49 PM CDT Alex Yost MD LAB BLOOD ORDERABLES F inal Result [facility] [place] [address] * (ABNORMAL) CBC with auto differential (05/12/2025 2:38 PM CDT) [facility] WBC 190.74(C) 3.80 - 9.90 K/cumm Comment:Critical value greene d within last 72 hrs Critical value called within last 72 hrs Hgb 5.2(C) 13.0 - 17.5 g/dL [facility] Comment:Critical value greene d within last 72 hrs Critical value called within last 72 hrs Hct 15.5(L) 38.9 - 50.3 % [facility] Plt 29(C) 150 - 400 K/cumm [facility] Comment:Platelet count confi rmed by additional testing. Critical platelet count threshold determined by patient location: Outpatient:<50 K/cumm , Inpatient adults:<20 K/cumm , Inpatient pediatric:<25 K/cumm, BMT service:<10 K/cumm MPV Not Measured 9.1 - 12.3 fL [facility] RBC 1.55(L) 4.30 - 5.80 M/cumm [facility] MCV 100.0(H) 81.3 - 96.4 fL [facility] MCH 33.5(H) 27.1 - 33.3 pg [facility] MCHC 33.5 32.3 - 35.7 g/dL [facility] RDW CV 22.3(H) 11.1 - 14.9 % [facility] RDW SD 77.0(H) 35.7 - 48.1 fL [facility] NRBC abs 11.67(H) 0.00 - 0.01 K/cumm [facility] Blood 05/12/2025 2:38 PM CDT 05/12/2025 2:49 PM CDT Alex Yost MD LAB BLOOD ORDERABLES F inal Result Performing Organization Address [facility] Co de Phone Number [facility] [place] [address] * POCT glucose (05/12/2025 11:45 AM CDT) Glucose, POC 163 70 - 199 mg/dL Blood 05/12/2025 11:4 5 AM CDT 05/12/2025 11:45 AM CDT Alex Yost MD LAB POCT ORDERABLES - DEVICE Final Result Performing Organization Address [facility] de Phone Number [facility] [place] [address] * (ABNORMAL) Immature platelet fraction (05/12/2025 11:12 AM CDT) IPF 22.6(H) 1.6 - 10.1 % Blood 05/12/2025 11:1 2 AM CDT 05/12/2025 2:31 PM CDT Sandy Meraz NP LAB BLOOD ORDERABLES Final R esult Performing Organization Address [facility] de Phone Number ANGELA [facility] Department [place] [address] * (ABNORMAL) Potassium, whole blood (05/12/2025 11:12 AM CDT) Potassium, bld 6.7(C) 3.3 - 4.9 mmol/L Blood 05/12/2025 11:1 2 AM CDT 05/12/2025 11:16 AM CDT Sandy Meraz NP LAB BLOOD ORDERABLES Final R esult Performing Organization Address [facility]/State/ZIP Co de Phone Number [facility] Department [place] [address] * Critical Result Callback Chemistry (05/12/2025 11:12 AM CDT) Pathologist [facility] Date Notified [id number] Time Notified 1119 [facility] TestName Potassium WB [facility] Called/Read Back Zelda MILLER [facility] Credentials RN [facility] Called By KG ANGELA [facility] Blood 05/12/2025 11:1 2 AM CDT 05/12/2025 11:16 AM CDT us Sandy Meraz NP LAB BLOOD ORDERABLES Final R esult Performing Organization Address [facility] Co de Phone Number [facility] Department [place] [address] * Senior staff review (05/12/2025 11:12 AM CDT) [facility] Senior Staff Review Specimen Blood Senior Staff Review Review Done [facility] Comment:Reviewed by senior s taff.05/12/2025 15:11:45 CDT by GP. Blood 05/12/2025 11:1 2 AM CDT 05/12/2025 2:31 PM CDT us Alex Yots MD LAB BLOOD ORDERABLES F inal Result Performing Organization Address City/[facility] Co de Phone Number [facility] Department [place] [address] * (ABNORMAL) Manual Differential (05/12/2025 11:12 AM CDT) Pathologist [facility] Differential Manual Cells Counted 100 [facility] Neutrophil abs 24.48(H) 1.50 - 6.50 K/cumm [facility] Imm gran abs 16.32(H) 0.00 - 0.10 K/cumm [facility] Lymphocyte abs 21.76(H) 0.80 - 3.30 K/cumm [facility] Monocyte abs 16.32(H) 0.20 - 0.80 K/cumm [facility] Basophil abs 5.44(H) 0.00 - 0.10 K/cumm [facility] Neutrophil pct 9.0 % [facility] Comment: Interpretive Data Percent cell count reference ranges are not reported, since discordance with absolute values may lead to misinterpretation of CBC data. Current Interpretive Data was last revised on 2018. Lymphocyte pct 8.0 % [facility] Comment: Interpretive Data Percent cell count reference ranges are not reported, since discordance with absolute values may lead to misinterpretation of CBC data. Current Interpretive Data was last revised on 2018. Monocyte pct 6.0 % [facility] Comment: Interpretive Data Percent cell count reference ranges are not reported, since discordance with absolute values may lead to misinterpretation of CBC data. Current Interpretive Data was last revised on 2018. Basophil pct 2.0 % [facility] Comment: Interpretive Data Percent cell count reference ranges are not reported, since discordance with absolute values may lead to misinterpretation of CBC data. Current Interpretive Data was last revised on 2018. Metamyelocyte pct 1.0(H) 0.0 - 0.0 % [facility] Myelocyte pct 5.0(H) 0.0 - 0.0 % [facility] Blast pct 69.0(C) 0.0 - 0.0 [facility] Comment:Critical value greene d within last 30 days. Blood 05/12/2025 11:1 2 AM CDT 05/12/2025 2:31 PM CDT us Sandy Meraz ACCOUNT STRATEGIST LAB BLOOD ORDERABLES Final R esult ANGELA [facility] [place] [address] * (ABNORMAL) CBC without differential (05/12/2025 11:12 AM CDT) WBC 272.03(C) 3.80 - 9.90 K/cumm Comment:Critical value greene d within last 72 hrs Hgb 5.3(C) 13.0 - 17.5 g/dL [facility] Comment:Critical value greene d within last 72 hrs Hct 16.1(L) 38.9 - 50.3 % [facility] Plt 45(C) 150 - 400 K/cumm [facility] Comment:Platelet count confi rmed by additional testing. Critical platelet count threshold determined by patient location: Outpatient:<50 K/cumm , Inpatient adults:<20 K/cumm , Inpatient pediatric:<25 K/cumm, BMT service:<10 K/cumm MPV 12.0 9.1 - 12.3 fL [facility] RBC 1.60(L) 4.30 - 5.80 M/cumm [facility] MCV 100.6(H) 81.3 - 96.4 fL [facility] MCH 33.1 27.1 - 33.3 pg [facility] MCHC 32.9 32.3 - 35.7 g/dL [facility] RDW CV 22.3(H) 11.1 - 14.9 % [facility] RDW SD 78.4(H) 35.7 - 48.1 fL [facility] NRBC abs 12.19(H) 0.00 - 0.01 K/cumm [facility] Blood 05/12/2025 11:1 2 AM CDT 05/12/2025 2:31 PM CDT Sandy Meraz NP LAB BLOOD ORDERABLES Edited Result - Final [facility] [place] [address] * WI INSJ NON-TUNNELED CENTRAL VENOUS CATH AGE 5 YR/> (05/12/2025 10:57 AM CDT) Narrative Alex Yost MD - 05/12/2025 10:57 AM CDT Alex Yost MD 05/12/2025 12:49 PM Central Line Insertion Date/Time: 05/12/2025 10:57 AM Performed by: Sarah Murillo MD Authorized by: Sarah Murillo MD Dolphin Protocol: RN Notified of Procedure: yes Informed consent: Risks, benefits, alternatives discussed and 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 and accepts Patient's stated name/ [...] NP BLOOD TRANSFUSION ORDERABLES Final Result ANGELA [facility] [place] [address] * Transfuse RBC (05/12/2025 10:07 AM CDT) Blood us Fab RodriguezGilberto Eden ACCOUNT STRATEGIST BLOOD TRANSFUSION ORDERABLES Final Result ANGELA DUNAWAY [facility] [place] [address] * FLT3 Mutation Detection by PCR (05/12/2025 [...] intermediate risk karyotype (Frohling et al., 2002, [id number]; Schjayek et al., 2008, [id number]; Kong et al., 2012, [id number]; Estey et al., 2013, [id number]; Diomedes et al., 2013, [id number]). FLT3-ITD prognostic significance may be further modified by allelic ratio of (mutated to un-mutated) alleles (Schlenk et al., 2014, [id number]; Carmina et al., 2006, [id number]; Raoe et al., 2002, [id number]). For adult AML patients harboring a FLT3-ITD [...] clinical studies (ClinicalTrials.gov; Amos and Joseph, 2019, 01837025; Ding et al., 2018 [id number]). Signing Pathologist: Virgil Hui M.D. 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 Note: In positive cases with multiple FLT3-ITD [...] developed and its performance characteristics determined by [facility] in a manner consistent with CLIA requirements. This test has not been cleared or approved by the U.S. Food and Drug Administration. Test Performed by: [facility] [place] [address] Hydraulic Elevator Constructor: Christa Adames Ph.D.; CLIA# [id number] FLT3 specimen type blood [facility] Blood 05/12/2025 9:52 AM CDT 05/12/2025 11:06 AM CDT Alex Yost MD LAB BODY FLUIDS AND ST OOLS ORDERABLES Final Result [facility] [place] [address] * eGFR (05/12/2025 9:52 AM CDT) eGFR [...] 05/12/2025 9:59 AM CDT us Fab Eden ACCOUNT STRATEGIST LAB BLOOD ORDERABLES Edited Result - Final [facility] [place] [address] * (ABNORMAL) Basic metabolic panel (05/12/2025 9:52 [...] recommended. Chloride 100 97 - 110 mmol/L [facility] Comment:Sample investigated and found to be analytically accurate. If results do not match clinical presentation, improper collection (e.g., IV fluid contamination, improper tube type, mislabel) should be considered and re-collection recommended. CO2 29 22 - 32 mmol/L [facility] Comment:Sample investigated and found to be analytically accurate. If results do not match clinical presentation, improper collection (e.g., IV fluid contamination, improper tube type, mislabel) should be considered and re-collection recommended. Anion gap <1(L) 2 - 15 mmol/L [facility] Comment:Sample investigated and found to be analytically accurate. If results do not match clinical presentation, improper collection (e.g., IV fluid contamination, improper tube type, mislabel) should be considered and re-collection recommended. BUN 18 6 - 25 mg/dL [facility] Comment:Sample investigated and found to be analytically accurate. If results do not match clinical presentation, improper collection (e.g., IV fluid contamination, improper tube type, mislabel) should be considered and re-collection recommended. Creatinine 1.15 0.80 - 1.30 mg/dL [facility] Comment:Sample investigated and found to be analytically accurate. If results do not match clinical presentation, improper collection (e.g., IV fluid contamination, improper tube type, mislabel) should be considered and re-collection recommended. Glucose 135 70 - 199 mg/dL [facility] Comment: Sample investigated and found to be [...] 2022. Calcium 7.4(L) 8.5 - 10.3 mg/dL [facility] Comment:Sample investigated and found to be analytically accurate. If results do not match clinical presentation, improper collection (e.g., IV fluid contamination, improper tube type, mislabel) should be considered and re-collection recommended. Blood 05/12/2025 9:52 AM CDT 05/12/2025 9:59 AM CDT us Fab Eden ACCOUNT STRATEGIST LAB BLOOD ORDERABLES Edited Result - Final Performing Organization Address [facility]/ZIP Co de Phone Number [facility] [address] * Prepare RBC: 1 Units (05/12/2025 9:29 AM CDT) Product code [id number] Unit Number [id number] [facility] Product Blood Type BPOS [facility] Dispense Status PRESUMED TRANSFUSED [facility] Blood 05/12/2025 9:29 AM CDT 05/12/2025 9:28 AM CDT Narrative [facility] - 05/13/2025 12:57 AM CDT Are special requirements needed? (All products are leukoreduced and CMV- safe)- >No Date required:-[id number] LRRBC # of [id number] Reasons:-Hgb <7 g/dL} us Sandy Meraz NP BLOOD BANK PRODUCT ORDERABLE S Final Result [facility] [address] * XR Chest 1 View [...] LAB BLOOD ORDERABLES F inal Result C[facility] [place] [address] * Senior staff review (05/12/2025 8:50 AM CDT) Pathologist [facility] Senior Staff Review Specimen Blood Senior Staff Review Review Done [facility] Comment:Reviewed by senior bishop sparrow.05/12/2025 15:01:37 CDT by GP. Blood 05/12/2025 8:50 AM CDT 05/12/2025 10:49 AM CDT Alex Yost MD LAB BLOOD ORDERABLES F inal Result [facility] [place] [address] * (ABNORMAL) Manual Differential (05/12/2025 8:50 AM CDT) Pathologist [facility] Differential Manual Cells Counted 118 [facility] Neutrophil abs 26.79(H) 1.50 - 6.50 K/cumm [facility] Imm gran abs 10.71(H) 0.00 - 0.10 K/cumm [facility] Lymphocyte abs 2.52 0.80 - 3.30 K/cumm [facility] Monocyte abs 5.36(H) 0.20 - 0.80 K/cumm [facility] Basophil abs 7.88(H) 0.00 - 0.10 K/cumm [facility] Neutrophil pct 8.5 % [facility] [facility] Comment: Interpretive Data Percent cell count reference ranges are not reported, since discordance with absolute values may lead to misinterpretation of CBC data. Current Interpretive Data was last revised on 2018. Lymphocyte pct 0.8 % [facility] Comment: Interpretive Data Percent cell count reference ranges are not reported, since discordance with absolute values may lead to misinterpretation of CBC data. Current Interpretive Data was last revised on 2018. Monocyte pct 1.7 % [facility] Comment: Interpretive Data Percent cell count reference ranges are not reported, since discordance with absolute values may lead to misinterpretation of CBC data. Current Interpretive Data was last revised on 2018. Basophil pct 2.5 % [facility] Comment: Interpretive Data Percent cell count reference ranges are not reported, since discordance with absolute values may lead to misinterpretation of CBC data. Current Interpretive Data was last revised on 2018. Myelocyte pct 3.4(H) 0.0 - 0.0 % [facility] Blast pct 83.1(C) 0.0 - 0.0 [facility] Comment:Critical value greene d within last 30 days. Smudge cells, qual Present(A) [facility] RBC morphology Present(A) [facility] Anisocytosis Moderate(A ) [facility] Poikilocytosis Slight(A) [facility] Macrocytes 8-15/HPF(A ) [facility] Schistocytes 1-2/HPF(A) [facility] Teardrop cells 3-7/HPF(A) [facility] Platelet estimate Decreased( A) [facility] Blood 05/12/2025 8:50 AM CDT 05/12/2025 10:49 AM CDT us Alex Yost MD LAB BLOOD ORDERABLES F inal Result [facility] [place] [address] * (ABNORMAL) CBC without differential (05/12/2025 8:50 AM CDT) WBC 315.14(C) 3.80 - 9.90 K/cumm Comment:Critical value greene d within last 72 hrs Hgb 4.9(C) 13.0 - 17.5 g/dL [facility] Comment:Critical value greene d within last 72 hrs Hct 14.7(L) 38.9 - 50.3 % [facility] Plt 53(L) 150 - 400 K/cumm [facility] Comment:No clot detected in sample. MPV 11.4 9.1 - 12.3 fL [facility] RBC 1.41(L) 4.30 - 5.80 M/cumm [facility] MCV 104.3(H) 81.3 - 96.4 fL [facility] MCH 34.8(H) 27.1 - 33.3 pg [facility] MCHC 33.3 32.3 - 35.7 g/dL [facility] RDW CV 21.5(H) 11.1 - 14.9 % [facility] RDW SD 78.0(H) 35.7 - 48.1 fL [facility] NRBC abs 12.55(H) 0.00 - 0.01 K/cumm [facility] Blood 05/12/2025 8:50 AM CDT 05/12/2025 10:49 AM CDT us Alex Yost MD LAB BLOOD ORDERABLES F inal Result Performing Organization Address [facility] Co de Phone Number [facility] [place] [address] * (ABNORMAL) Uric acid (05/12/2025 8:50 AM CDT) Uric acid 8.7(H) 3.0 - 8.0 mg/dL Blood 05/12/2025 8:50 AM CDT 05/12/2025 8:59 AM CDT Narrative [facility] - 05/12/2025 9:46 AM CDT Q8hr TLS labs us Fab Eden NP LAB BLOOD ORDERABLES Final R esult Performing Organization Address City/[facility]/ZIP Co de Phone Number [facility] Department [place] [address] * Phosphorus (05/12/2025 8:50 AM CDT) Phosphorus, pl 4.2 2.3 - 4.5 mg/dL Blood 05/12/2025 8:50 AM CDT 05/12/2025 8:59 AM CDT us Fab Eden ACCOUNT STRATEGIST LAB BLOOD ORDERABLES Final R esult ANGELA [facility] [place] [address] * (ABNORMAL) Lactate dehydrogenase (LD) (05/12/2025 8:50 AM CDT) Lactate dehydrogenase (LDH) 7,830(H) 100 - 250 Units/L Comment:Repeated on Dilution Blood 05/12/2025 8:50 AM CDT 05/12/2025 8:59 AM CDT Fab Eden ACCOUNT STRATEGIST LAB BLOOD ORDERABLES Final R esult Performing Organization Address City/[facility]/ZIP Co de Phone Number ANGELA [facility] [place] [address] * Cytogenetics Blood (05/12/2025 8:45 AM CDT) Blood (Peripheral Blood For Pathologist Review) 05/12/2025 8:45 AM CDT 05/12/2025 8:45 AM CDT Narrative [facility] DIAGNOSTIC [facility] - CYTOGENETICS - 05/13/2025 1:11 PM CDT EPIC results best viewed via link to PDF [facility] Department of Pathol [address] [place] [id number] Patient Information Name: TAMMY WRIGHT Gender: M : 1965 (Age: 60) Tissue: FISH Only Leukemic Blood Visit Information Hospital #: [id number] Facility: [facility] Service: [facility] Location: UNKNOWN Patient Type: [facility] Inpatient Specimen Information: Culture #: [id number] Date Collected: 05/12/2025 Date Accessioned: 05/12/2025 Date [...] probe in the Clinical Genomics Laboratory at [facility]. Variant signal pattern was observed in [...] probe in the Clinical Genomics Laboratory at [facility]. Variant signal pattern was observed in [...] developed and its performance characteristics determined by [facility]. It has not been cleared or approved by the FDA. The laboratory is regulated under CLIA as qualified to perform high-complexity testing. This test is used for clinical purposes. It should not be regarded as investigational or for research. Chromosome analysis and Fluorescence In Situ Hybridization (FISH) analysis are performed using the [employer] System. Report Electronically Reviewed and Signed Out By Priscila Saha MD, [facility], FAAPDate Reported: 05/13/2025Professor, Division of Genomic & Molecular Pathology Alex Yost MD LAB GENETIC TESTING Fi nal Result [facility] DIAGNOSTIC LAB - CYTOGENETICS [address] [place] [address] * POCT glucose (05/12/2025 8:10 AM CDT) Pathologist [facility] Glucose, POC 134 70 - 199 mg/dL Blood 05/12/2025 8:10 AM CDT 05/12/2025 8:10 AM CDT Alex Yost MD LAB POCT ORDERABLES - DEVICE Final Result Performing Organization Address City/[facility] Co de Phone Number [facility] Department [place] [address] * Histoplasma Antigen Urine (05/12/2025 6:58 AM CDT) [facility] Histo Ag Ur result None Detected None Detected Histo Ag Ur interp Negative Negative [facility] Comment: Result Interpretation: Reference interval: None Detected Results reported as ng/mL in 0.20 - 20.00 ng/mL range Results above 20.00 ng/mL are reported as 'Positive, Above the Limit of Quantification' Testing Performed by: [employer], [address] [place] [address], [place] [address]. This test was developed and its performance characteristics determined by [employer]. It has not been cleared or approved [...] O RDERABLES Final Result Performing Organization Address [facility] Co de Phone Number [facility] [place] [address] * (ABNORMAL) Urinalysis reflex to microscopic and culture Urine, bladder (05/12/2025 6:58 AM CDT) Color, ur Yellow Yellow Clarity, ur Clear Clear [facility] Specific gravity, ur 1.018 1.003 - 1.030 [facility] pH, urine 6.0 [facility] Comment: Interpretive Data U rine pH is affected by diet, medications, systemic acid-base disturbances, and renal tubular function. pH may affect urinary stone formation. For example, urine pH below 6.0 may help reduce the tendency for calcium phosphate stones and pH greater than 6.0 may reduce the tendency for uric acid stone formation. Source: [facility] Current Interpretive Data was last revised on 2017 Protein, ur ql Trace Negative [facility] Glucose, ur ql Negative Negative [facility] Ketones, ur Negative Negative [facility] Bilirubin, ur Negative Negative [facility] Blood, ur Negative Negative [facility] Urobilinogen, ur 2.0(A) <2.0 mg/dL [facility] Nitrite, ur Negative Negative [facility] Leukocyte esterase, ur Negative Negative [facility] UA reflex comment Reflex conditions for microscopic UA and culture not met. [facility] Urine, bladder 05/12/2025 6: 58 AM CDT 05/12/2025 7:03 AM CDT Fab Eden ACCOUNT STRATEGIST LAB MICROBIOLOGY - GENERAL O RDERABLES Final Result Performing Organization Address [facility] Co de Phone Number [facility] Department [place] [address] * Legionella antigen Urine (05/12/2025 6:58 AM CDT) Legionella Ag Negative Negative Comment: Interpretive Data This test detects only Legionella pneumophila serogroup 1 antigen. Testing performed by [facility] ([phone]). Current interpretive data was last revised on 2019. Urine 05/12/2025 6:58 AM CDT 05/12/2025 8:44 AM CDT Fab Eden ACCOUNT STRATEGIST LAB MICROBIOLOGY - GENERAL O RDERABLES Final Result Performing Organization Address [facility] Co de Phone Number [facility] Department [place] [address] * Sodium, urine, random (05/12/2025 6:58 AM CDT) Sodium, ur <20 mmol/L Comment: Repeated and Verified Interpretive Data No reference range established. Current interpretive data was last revised 2019. Urine 05/12/2025 6:58 AM CDT 05/12/2025 7:03 AM CDT Alex Yost MD LAB URINE ORDERABLES F inal Result Performing Organization Address [facility] de Phone Number [facility] Department [place] [address] * Creatinine, urine, random (05/12/2025 6:58 AM CDT) Creatinine Ur 177.7 mg/dL Comment: Interpretive Data No reference range established. Current interpretive data was last revised 2019. Urine 05/12/2025 6:58 AM CDT 05/12/2025 7:03 AM CDT Alex Yost MD LAB URINE ORDERABLES F inal Result Performing Organization Address [facility]/State/ZIP Co de Phone Number [facility] [place] [address] * Drugs of Abuse Screen, Urine with [...] Benzodiazepines, ur Not Detected CutOff 100ng/mL ANGELA [facility] Comment: Interpretive Data - Benzodiazepines: Samples containing [...] Cocaine, ur Not Detected CutOff 150ng/mL ANGELA [facility] Comment: Interpretive Data - Cocaine: Samples containing [...] Methadone, ur Not Detected CutOff 300ng/mL ANGELA [facility] Comment: Interpretive Data - Methadone: Samples containing greater than 300 ng/mL d,l-methadone or other cross-reacting compounds are reported as positive. False positive and false negative results are possible. Confirmatory testing required for definitive results. Current Interpretive Data was last reviewed 2023. Opiates, ur Not Detected CutOff 300ng/mL ANGELA [facility] Comment: Interpretive Data - Opiates: Samples containing greater than 300 ng/mL morphine or other cross-reacting compounds are reported as positive. False positive and false negative results are possible. Confirmatory testing required for definitive results. Current Interpretive Data was last reviewed 2023. Oxycodone, ur Not Detected CutOff 100ng/mL ANGELA [facility] Comment: Interpretive Data - Oxycodone: Samples containing greater than 100 ng/mL oxycodone or other cross-reacting compounds are reported as positive. False positive and false negative results are possible. Confirmatory testing required for definitive results. Current Interpretive Data was last reviewed 2023. Phencyclidine, ur Not Detected CutOff 25 ng/[facility] Comment: Interpretive Data - Phencyclidine: Samples containing greater than 25 ng/mL phencyclidine or other cross-reacting compounds are reported as positive. False positive and false negative results are possible. Confirmatory testing required for definitive results. Current Interpretive Data was last reviewed 2023. Urine 05/12/2025 6:50 AM CDT 05/12/2025 8:53 AM CDT Narrative [facility] - 05/12/2025 9:24 AM CDT Drug of Abuse screening is performed by immunoassay for medical purposes only. This is not to be used for Pain Management purposes. If Detected, confirmation testing will be performed for Amphetamines, Cocaine, Fentanyl, Methadone, Opiates, Oxycodone or Phencyclidine. Alex Yost MD LAB URINE [place] [address] * Troponin I high-sensitivity 4-hour (05/12/2025 6:08 AM CDT) Trop I hs 10 <=35 ng/L Comment: Interpretive Data For further hscTnI resources including the diagnostic algorithm and an aid in interpretation, copy and paste this link: [email or web address] Current Interpretive Data last revised 2020. Trop I hs delta -4 ng/L [facility] Trop I hs interp Insignificant [facility] Blood 05/12/2025 6:08 AM CDT 05/12/2025 6:13 AM CDT us Fab Eden NP LAB BLOOD ORDERABLES Final R esult Performing Organization Address [facility] [place] [address] * POCT glucose (05/12/2025 4:17 AM CDT) [facility] Glucose, POC 139 70 - 199 mg/dL Blood 05/12/2025 4:17 AM CDT 05/12/2025 4:17 AM CDT Alex Yost MD LAB POCT ORDERABLES - DEVICE Final Result Performing Organization Address [facility] Co de Phone Number [facility] [place] [address] * Troponin I high-sensitivity 2-hour (05/12/2025 4:02 AM CDT) Pathologist [facility] Trop I hs 14 <=35 ng/L Comment: Interpretive Data For further hscTnI resources including the diagnostic algorithm and an aid in interpretation, copy and paste this link: [email or web address] Current Interpretive Data last revised 2020. Trop I hs delta 0 ng/L ANGELA [facility] Trop I hs interp Insignificant [facility] Blood 05/12/2025 4:02 AM CDT 05/12/2025 4:22 AM CDT Fab Eden ACCOUNT STRATEGIST LAB BLOOD ORDERABLES Final R esult Performing Organization Address City/[facility]/ZIP Co de Phone Number [facility] [place] [address] * (ABNORMAL) Potassium, whole blood (05/12/2025 4:02 AM CDT) Potassium, bld 2.1(C) 3.3 - 4.9 mmol/L Comment:reviewed Blood 05/12/2025 4:02 AM CDT 05/12/2025 4:10 AM CDT Fab Eden ACCOUNT STRATEGIST LAB BLOOD ORDERABLES Final R esult Performing Organization Address [facility]/ZIP Co de Phone Number [facility] [place] [address] * Critical Result Callback Chemistry (05/12/2025 4:02 AM CDT) Date Notified 20250512 Time Notified 440 [facility] TestName Potassium WB ANGELA [facility] Called/Read Back Jace MILLER [facility] Credentials RN ANGELA [facility] Called By rex MILLER [facility] Blood 05/12/2025 4:02 AM CDT 05/12/2025 4:10 AM CDT Fab Eden ACCOUNT STRATEGIST LAB BLOOD ORDERABLES Final R esult Performing Organization Address City/[facility]/[place] [address] * Extra slide preparation (05/12/2025 4:02 AM CDT) Extra slide prep Slide available for pickup from the lab. Blood 05/12/2025 4:02 AM CDT 05/12/2025 4:22 AM CDT Fab Eden NP LAB BLOOD ORDERABLES Final R esult Performing Organization Address [facility] Co de Phone Number [facility] Department [place] [address] * Check Sample (05/12/2025 2:58 AM CDT) Pathologist [facility] ABO Rh B Positive [facility] HCLL OTHER 05/12/2025 2:58 AM CDT 05/12/2025 3:04 AM CDT Alex Yost MD LAB BLOOD ORDERABLES F inal Result Performing Organization Address [facility] de Phone Number [facility] [place] [address] [facility] * Prepare RBC: 1 Units (05/12/2025 2:53 AM CDT) Product code [id number] Unit Number [id number] [facility] Product Blood Type BPOS [facility] Dispense Status PRESUMED TRANSFUSED [facility] Blood 05/12/2025 2:53 AM CDT 05/12/2025 2:52 AM CDT Narrative [facility] - 05/12/2025 4:00 PM CDT Are special requirements needed? (All products are leukoreduced and CMV- safe)- >No Date required:-20250512 LRRBC # of [id number] Reasons:-Hgb <7 g/dL} Fab Eden NP BLOOD BANK PRODUCT ORDERABLE S Final Result Performing Organization Address [facility] de Phone Number [facility] [place] [address] * X-ray chest 1 view (Portable) (05/12/2025 [...] by: Thompson Lamas M.D. us Fab Eden ACCOUNT STRATEGIST IMG XR PROCEDURES Final Resu lt * POCT glucose (05/12/2025 2:11 AM CDT) Glucose, POC 161 70 - 199 mg/dL Blood 05/12/2025 2:11 AM CDT 05/12/2025 2:11 AM CDT us Alex Yost MD LAB POCT ORDERABLES - DEVICE Final Result [facility] [place] [address] * Coccidioides antibody screen w/reflex Blood (05/12/2025 2:03 AM CDT) [facility] Coccidioides ab screen, ser Negative Negative [facility] Comment: Repeat testing on a new sample in 2-3 weeks if clinically indicated. ADDITIONAL INFORMATION This test has been modified from the distance education faculty liaison's instructions. Its performance characteristics were determined by [facility] in a manner consistent with CLIA requirements. This test has not been cleared or approved by the U.S. Food and Drug Administration. Test Performed by: [address] [address] Hydraulic Elevator Constructor: Christa Adames Ph.D.; CLIA# [id number] Blood 05/12/2025 2:03 AM CDT 05/12/2025 2:13 AM CDT Fab Eden ACCOUNT STRATEGIST LAB MICROBIOLOGY - GENERAL O RDERABLES Final Result ANGELA MOREAU [facility] [place] [address] [facility] * Troponin I high-sensitivity series (baseline, 2hr, 4hr, 6hr) (05/12/2025 2:03 AM CDT) [facility] Trop I hs 14 <=35 ng/L Comment: Interpretive Data For further [facility] Hospital[facility] resources including the diagnostic algorithm and an aid in interpretation, copy and paste this link: [email or web address]/[email or web address] Current Interpretive Data last revised 2020. Blood 05/12/2025 2:03 AM CDT 05/12/2025 2:21 AM CDT Fba Eden ACCOUNT STRATEGIST LAB BLOOD ORDERABLES Final R esult Performing Organization Address City/[facility]/ZIP Co de Phone Number [facility] [place] [address] * Lactate (05/12/2025 2:03 AM CDT) Pathologist [facility] Lactate 1.1 0.7 - 2.0 mmol/L Blood 05/12/2025 2:03 AM CDT 05/12/2025 2:21 AM CDT Fab Eden ACCOUNT STRATEGIST LAB BLOOD ORDERABLES Final R esult Performing Organization Address [facility] Co de Phone Number [facility] [place] [address] * Flow Leukemia/Lymphoma Blood (05/12/2025 2:03 AM CDT) [facility] Patel Stain Test Completed Leukemia/Lymp [place] Result See separate Surgical Pathology report. [facility] Blood 05/12/2025 2:03 AM CDT 05/12/2025 2:21 AM CDT Fab Eden ACCOUNT STRATEGIST LAB PATHOLOGY ORDERABLES Fin al Result Performing Organization Address [facility] Co de Phone Number [facility] [place] [address] * Cytomegalovirus (CMV) DNA PCR, quantitative Blood (05/12/2025 2:03 AM CDT) [facility] CMV DNA Not Detected [facility] Comment: Interpretive Data: The quantifiable range of this assay is 34 IUnits/mL to 10,000,000 IUnits/mL (1.53 log IUnits/mL to 7.0 log IUnits/mL). Testing was performed by the [employer]00 CMV Test ([employer] Testing performed at [facility]. Current interpretive data was last revised on 2021. Blood 05/12/2025 2:03 AM CDT 05/12/2025 2:16 AM CDT Fab Eden NP LAB MICROBIOLOGY - GENERAL O RDERABLES Final Result Performing Organization Address [facility] Co de Phone Number [facility]ELA DUNAWAY [facility] [place] [address] [facility] * eGFR (05/12/2025 2:03 AM CDT) eGFR [...] ORDERABLES Final R esult Performing Organization Address City/[facility]/ZIP Co de Phone Number ANGELA [facility] [place] [address] * Blastomyces antibody, EIA, serum Blood (05/12/2025 2:03 AM CDT) Pathologist [facility] Blastomyces Antibody Negative Negative [facility] Comment: A single negative result does not exclude the diagnosis of blastomycosis. Repeat testing on a new sample in 7-14 days if clinically indicated. Test Performed by: [facility] [address] [place] [address] Hydraulic Elevator Constructor: Christa Adames Ph.D.; CLIA# [id number] Blood 05/12/2025 2:03 AM CDT 05/12/2025 2:38 AM CDT Fab Eden ACCOUNT STRATEGIST LAB MICROBIOLOGY - GENERAL O RDERABLES Final Result Performing Organization Address [facility] Co de Phone Number [facility] Department [place] [address] [facility] * Critical Result Callback Chemistry (05/12/2025 2:03 AM CDT) Date Notified 20250512 Time Notified 318 ANGELA [facility] TestName Potassium Plas ANGELA [facility] Called/Read Back Sharmin DUNAWAY Credentials MARTINA [facility]NAW[facility] Called By JAKY DUNAWAY Blood 05/12/2025 2:03 AM CDT 05/12/2025 2:21 AM CDT Fab Eden NP LAB BLOOD ORDERABLES Final R esult Performing Organization Address [facility] Co de Phone Number [facility] [place] [address] * Critical Result Callback Chemistry (05/12/2025 2:03 AM CDT) Date Notified 20250512 Time Notified 237 ANGELA [facility] TestName pO2 Art, O2 Sat Art AN[facility]ELA [facility] Called/Read Back Som DUNAWAY Credentials MARTINA DUNAWAY Called By JAKY DUNAWAY Blood 05/12/2025 2:03 AM CDT 05/12/2025 2:15 AM CDT Fab Eden NP LAB BLOOD ORDERABLES Final R esult Performing Organization Address City/[facility]/[place] [address] * Senior staff review (05/12/2025 2:03 AM CDT) Senior Staff Review Specimen Blood Senior Staff Review Review Done [facility] Comment:Refer to manual diff erential pathologist comment. Blood 05/12/2025 2:03 AM CDT 05/12/2025 4:01 AM CDT Narrative [facility] - 05/12/2025 2:56 PM CDT PATH REVIEW Alex Yost MD LAB BLOOD ORDERABLES F inal Result Performing Organization Address [facility] [place] [address] * HIV 1/2 Antibody plus p24 Antigen Blood (05/12/2025 2:03 AM CDT) Pathologist [facility] HIV 1/2 ab + p24 ag Nonreactive [...] O RDERABLES Final Result Performing Organization Address [facility] [place] [address] * (ABNORMAL) CMV, IgG Blood (05/12/2025 2:03 AM CDT) Pathologist [facility] CMV IgG Positive( A) Negative Comment: Interpretive [...] CDT 05/12/2025 2:22 AM CDT Fab Eden ACCOUNT STRATEGIST LAB MICROBIOLOGY - GENERAL O RDERABLES Final Result Performing Organization Address City/[facility] Co de Phone Number [facility] [place] [address] * Extra slide preparation (05/12/2025 2:03 AM CDT) [facility] Extra slide prep Slide available for pickup from the lab. Blood 05/12/2025 2:03 AM CDT 05/12/2025 4:01 AM CDT Fab Eden ACCOUNT STRATEGIST LAB BLOOD ORDERABLES Final R esult Performing Organization Address [facility] Co de Phone Number [facility] [address] * Respiratory pathogen panel Nasopharyngeal (05/12/2025 2:03 AM CDT) [facility] Influenza A RNA Not Detected Not Detected Influenza B RNA Not Detected Not Detected [facility] RSV RNA Not Detected Not Detected [facility] COVID-19 RNA Not Detected Not Detected [facility] Coronavirus 229E RNA Not Detected Not Detected [facility] Coronavirus HKU1 RNA Not Detected Not Detected [facility] Coronavirus NL63 RNA Not Detected Not Detected [facility] Coronavirus OC43 RNA Not Detected Not Detected [facility] Adenovirus DNA Not Detected Not Detected [facility] Metapneumovirus RNA Not Detected Not Detected [facility] Rhinovirus/Enterov irus RNA Not Detected Not Detected [facility] Parainfluenza 1 RNA Not Detected Not Detected [facility] Parainfluenza 2 RNA Not Detected Not Detected [facility] Parainfluenza 3 RNA Not Detected Not Detected [facility] Parainfluenza 4 RNA Not Detected Not Detected [facility] B. pertussis DNA Not Detected Not Detected [facility] B. parapertussis DNA Not Detected Not Detected [facility] C. pneumoniae DNA Not Detected Not Detected [facility] M. pneumoniae DNA Not Detected Not Detected [facility] Nasopharyngeal 05/12/2025 2: 03 AM CDT 05/12/2025 2:24 AM CDT Narrative [facility] - 05/12/2025 3:20 AM CDT Is the Patient experiencing symptoms consistent with COVID?->No Surveillance testing for transplant patient?->No Interpretive Data The D-Share FilmArray Respiratory Panel (RP2.1) assay is a [...] assay has FDA clearance for testing of ACCOUNT STRATEGIST swabs. The performance of additional specimen types has been assessed by the performing laboratory. The performance characteristics of this assay have been determined by [facility] Molecular Infectious Disease Laboratory. Current interpretive data was last revised on 22. Fab Eden NP LAB MICROBIOLOGY - GENERAL O RDERABLES Final Result Performing Organization Address [facility] de Phone Number [facility] [place] [address] * Cryptococcal Antigen, Serum Blood (05/12/2025 2:03 AM CDT) [facility] Cryptococcus ag, Serum Negative Negative Comment: The [...] O RDERABLES Final Result Performing Organization Address [facility] de Phone Number [facility] [place] [address] * Hepatitis panel, acute Blood (05/12/2025 2:03 AM CDT) [facility] Hep A IgM Nonreactive Nonreactive Hep B core IgM Nonreactive Nonreactive [facility] Hep C Ab Nonreactive Nonreactive [facility] Comment:Antibodies to HCV no t detected. Does NOT exclude the possibility of recent exposure to HCV. Current interpretive data was last revised on 22 HepBsAg Nonreactive Nonreactive [facility] Blood 05/12/2025 2:03 AM CDT 05/12/2025 2:21 AM CDT Fab Eden ACCOUNT STRATEGIST LAB MICROBIOLOGY - GENERAL O RDERABLES Final Result Performing Organization Address [facility] de Phone Number [facility] [address] * Aspergillus galactomannan antigen Blood (05/12/2025 2:03 AM CDT) [facility] Aspergillus galactomannan Ag <0.500 <0.5 Index [place] [facility] Comment: ADDITIONAL INFORMATION This is a qualitative test and the resulted index value is not indicative of disease severity. Serial testing is recommended for patients at high risk for invasive aspergillosis. This assay was performed using the FDA-cleared Bio-TAXI5.pl Platelia Aspergillus Galactomannan EIA. Test Performed by: [place] [address] Hydraulic Elevator Constructor: Christa Adames Ph.D.; CLIA# [id number] Blood 05/12/2025 2:03 AM CDT 05/12/2025 2:13 AM CDT Fab Eden NP LAB MICROBIOLOGY - GENERAL O RDERABLES Final Result Performing Organization Address [facility] Co de Phone Number [facility] [place] [address] [place] [facility] * (ABNORMAL) Manual Differential (05/12/2025 2:03 AM CDT) Differential Manual Cells Counted 100 [facility] Neutrophil abs 3.44 1.50 - 6.50 K/cumm [facility] Imm gran abs 44.77(H) 0.00 - 0.10 K/cumm [facility] Lymphocyte abs 20.67(H) 0.80 - 3.30 K/cumm [facility] Monocyte abs 17.22(H) 0.20 - 0.80 K/cumm [facility] Eosinophil abs 3.44(H) 0.00 - 0.50 K/cumm [facility] Neutrophil pct 1.0 % [facility] Comment: Interpretive Data Percent cell count reference ranges are not reported, since discordance with absolute values may lead to misinterpretation of CBC data. Current Interpretive Data was last revised on 2018. Lymphocyte pct 6.0 % [facility] Comment: Interpretive Data Percent cell count reference ranges are not reported, since discordance with absolute values may lead to misinterpretation of CBC data. Current Interpretive Data was last revised on 2018. Monocyte pct 5.0 % [facility] Comment: Interpretive Data Percent cell count reference ranges are not reported, since discordance with absolute values may lead to misinterpretation of CBC data. Current Interpretive Data was last revised on 2018. Eosinophil pct 1.0 % [facility] Comment: Interpretive Data Percent cell count reference ranges are not reported, since discordance with absolute values may lead to misinterpretation of CBC data. Current Interpretive Data was last revised on 2018. Myelocyte pct 13.0(H) 0.0 - 0.0 % [facility] Blast pct 74.0(C) 0.0 - 0.0 [facility] Comment:This result has been called to Iveth Gisel RN by [id number] on 05/12/2025 14:43:21, and has been read back. Critical result previously called to Ivethchicho Batres/RN on 05-12-25 at 0340 by . RBC morphology Present [facility] Platelet estimate Decreased(A) [facility] Pathologist comment Reviewed by Hematopathol ogsree/Hemato logistLelo M.D. 05-12-25 Numerous leukocytes, correlate with testing. [facility] Blood 05/12/2025 2:03 AM CDT 05/12/2025 4:01 AM CDT Fab Eden ACCOUNT STRATEGIST LAB BLOOD ORDERABLES Edited Result - Final Performing Organization Address [facility]/ZIP Co de Phone Number [facility] [place] [address] * Blood culture Blood (05/12/2025 2:03 AM CDT) Report Final Report: No growth Blood 05/12/2025 2:03 AM CDT 05/12/2025 2:13 AM CDT Narrative [facility] - 05/17/2025 12:00 PM CDT From a [...] performance characteristics have been verified by the [facility] Microbiology Laboratory. For questions about this culture, contact the Microbiology Laboratory at [phone]. Interpretive data was last revised on 24. Fab Eden NP LAB MICROBIOLOGY - GENERAL O RDERABLES Final Result Performing Organization Address [facility]/ZIP Co de Phone Number [facility] [place] [address] * Blood culture Blood (05/12/2025 2:03 AM [...] performance characteristics have been verified by the [facility] Microbiology Laboratory. For questions about this culture, contact the Microbiology Laboratory at [phone]. Interpretive data was last revised on 24. Fab Eden NP LAB MICROBIOLOGY - GENERAL O RDERABLES Final Result ANGELA DUNAWAY [facility] [place] [address] * aPTT (05/12/2025 2:03 AM CDT) aPTT 26 26 - 38 sec Comment: Interpretive Data Heparin therapeutic range: 66.0 - 100.0 seconds. Range based on correlation with therapeutic heparin activity range of 0.3 - 0.7 Units/mL. Current interpretive data was last revised on 2023. Blood 05/12/2025 2:03 AM CDT 05/12/2025 2:21 AM CDT Fab Eden ACCOUNT STRATEGIST LAB BLOOD ORDERABLES Final R esult Performing Organization Address [facility] Co de Phone Number [facility] [place] [address] * (ABNORMAL) Protime-INR (05/12/2025 2:03 AM CDT) PT 19.5(H) 10.2 - 13.5 sec INR 1.74(H) 0.90 - 1.20 [facility] Comment: Interpretive data Oral anticoagulant therapeutic ranges: Venous thromboembolism prophylaxis or treatment: 2.0-3.0 CARDIOLOGY Standard range: 2.0-3.0 High-intensity range: 2.5-3.5 Refer to indication-specific guidelines for appropriate target ranges for prosthetic heart valve replacement. Current interpretive data was last revised on 2019. Blood 05/12/2025 2:03 AM CDT 05/12/2025 2:21 AM CDT Fab Eden ACCOUNT STRATEGIST LAB BLOOD ORDERABLES Final R esult Performing Organization Address [facility] de Phone Number [facility] [place] [address] * Fibrinogen (05/12/2025 2:03 AM CDT) Fibrinogen 178 170 - 400 mg/dL Blood 05/12/2025 2:03 AM CDT 05/12/2025 2:21 AM CDT Fab Eden ACCOUNT STRATEGIST LAB BLOOD ORDERABLES Final R esult Performing Organization Address City/[facility] Co de Phone Number [facility] [place] [address] * (ABNORMAL) CBC without differential (05/12/2025 2:03 AM CDT) [facility] WBC 344.42(C) 3.80 - 9.90 K/cumm Comment:This result has been called to Isabella Powell by [id number] on 05/12/2025 02:40:10, and has been read back. Hgb 4.0(C) 13.0 - 17.5 g/dL [facility] Comment:This result has been called to Isabella Powell by [id number] on 05/12/2025 02:40:10, and has been read back. Hct 12.6(L) 38.9 - 50.3 % [facility] Plt 52(L) 150 - 400 K/cumm [facility] MPV 10.8 9.1 - 12.3 fL [facility] RBC 1.19(L) 4.30 - 5.80 M/cumm [facility] MCV 105.9(H) 81.3 - 96.4 fL [facility] MCH 33.6(H) 27.1 - 33.3 pg [facility] MCHC 31.7(L) 32.3 - 35.7 g/dL [facility] RDW CV 22.5(H) 11.1 - 14.9 % [facility] RDW SD 79.7(H) 35.7 - 48.1 fL [facility] NRBC abs 12.33(H) 0.00 - 0.01 K/cumm [facility] Blood 05/12/2025 2:03 AM CDT 05/12/2025 2:21 AM CDT us Fab Eden ACCOUNT STRATEGIST LAB BLOOD ORDERABLES Final R esult [facility] [place] [address] * Type and screen (05/12/2025 2:03 AM CDT) [facility] ABO Rh B Positive Benjy, indirect Negative [facility] Blood 05/12/2025 2:03 AM CDT 05/12/2025 2:14 AM CDT Narrative [facility] - 05/12/2025 3:13 AM CDT Has the patient had Daratumumab or Isatuximab in the past 6 months?->Unknown Fab Eden NP LAB BLOOD BANK TEST ORDERABL ES Final Result Performing Organization Address [facility] de Phone Number [facility] [place] [address] * Infection Prevention MRSA Only (Staphylococcus aureus) Culture Nasal (05/12/2025 2:03 AM CDT) Report Final Report: Negative Nasal 05/12/2025 2:03 AM CDT 05/12/2025 2:46 AM CDT Narrative [facility] - 05/13/2025 4:27 AM CDT Testing performed by [facility] Microbiology Laboratory ([phone]). Fab Eden NP LAB MICROBIOLOGY - GENERAL O RDERABLES Final Result Performing Organization Address [facility] de Phone Number [facility] [place] [address] * (ABNORMAL) Uric acid (05/12/2025 2:03 AM CDT) Uric acid 11.6(H) 3.0 - 8.0 mg/dL Blood 05/12/2025 2:03 AM CDT 05/12/2025 2:50 AM CDT Narrative [facility] - 05/12/2025 3:27 AM CDT Q8hr TLS labs Fab Eden ACCOUNT STRATEGIST LAB BLOOD ORDERABLES Final R esult Performing Organization Address [facility] Co de Phone Number [facility] [place] [address] * Phosphorus (05/12/2025 2:03 AM CDT) Pathologist [facility] Phosphorus, pl 3.5 2.3 - 4.5 mg/dL Blood 05/12/2025 2:03 AM CDT 05/12/2025 2:50 AM CDT Fab Eden ACCOUNT STRATEGIST LAB BLOOD ORDERABLES Final R esult Performing Organization Address City/[facility] [place] [address] * Osmolality, blood (05/12/2025 2:03 AM CDT) [facility] Osmo 285 275 - 300 mOsm/kg Blood 05/12/2025 2:03 AM CDT 05/12/2025 2:50 AM CDT Alex Yost MD LAB BLOOD ORDERABLES F inal Result Performing Organization Address [facility] [place] [address] * Magnesium (05/12/2025 2:03 AM CDT) [facility] Magnesium 2.1 1.4 - 2.5 mg/dL Blood 05/12/2025 2:03 AM CDT 05/12/2025 2:21 AM CDT Fab Eden ACCOUNT STRATEGIST LAB BLOOD ORDERABLES Final R esult Performing Organization Address [facility] [place] [address] * Lactate dehydrogenase (LD) (05/12/2025 2:03 AM CDT) [facility] Lactate dehydrogenase (LDH) See Comment 100 - 250 Units/L Comment: Credited; Hemolyzed Specimen Telephone report made to: Hilda Donohue (RN) on 05/12/2025 03:53:27 CDT by DAYSI . Blood 05/12/2025 2:03 AM CDT 05/12/2025 2:50 AM CDT Fab Eden ACCOUNT STRATEGIST LAB BLOOD ORDERABLES Final R [facility] Performing Organization Address [facility] Co de Phone Number [facility] [place] [address] * (ABNORMAL) Haptoglobin (05/12/2025 2:03 AM CDT) Haptoglobin <10.0(L) 30.0 - 200.0 mg/dL Blood 05/12/2025 2:03 AM CDT 05/12/2025 2:21 AM CDT Fab Eden ACCOUNT STRATEGIST LAB BLOOD ORDERABLES Final R esult Performing Organization Address [facility] de Phone Number [facility] [place] [address] * (ABNORMAL) Blood gas, arterial (05/12/2025 2:03 AM CDT) pH, Art 7.38 7.35 - 7.45 PCO2, Arterial 49(H) 35 - 45 mmHg [facility] PO2, Arterial 35(C) 83 - 108 mmHg [facility] Comment:Repeated and verifie d. HCO3 Art (Calculated) 30 20 - 30 mmol/L [facility] BE, art 3 mmol/L [facility] Comment: Interpretive Data No Reference Range Established Current Interpretive Data was last revised on 2017 O2 Sat Art (Measured) 51(C) 90 - 95 % [facility] Comment:Repeated and verifie d. Blood 05/12/2025 2:03 AM CDT 05/12/2025 2:15 AM CDT us Fab Eden ACCOUNT STRATEGIST LAB BLOOD ORDERABLES Final R esult [facility] [place] [address] * Creatine kinase (CK), total (05/12/2025 2:03 AM CDT) Pathologist [facility] CK 166 40 - 300 Units/L Comment:Hemolyzed; result ma y be falsely elevated Blood 05/12/2025 2:03 AM CDT 05/12/2025 2:50 AM CDT Alex Yost MD LAB BLOOD ORDERABLES F inal Result Performing Organization Address [facility] Co de Phone Number [facility] [place] [address] * (ABNORMAL) Comprehensive metabolic panel (05/12/2025 2:03 AM CDT) [facility] Sodium 124(L) 135 - 145 mmol/L Potassium, pl >10.0(C) 3.3 - 4.9 mmol/L [facility] Comment: Hemolyzed; Potassium value may be falsely elevated by as much as 0.3-0.5 mmol/L. Suggest redraw and reanalysis. Potassium results may be falsely elevated in the presence of leukocytosis: WBC >50 K/cumm. Suggest sending whole blood Potassium, if available. Repeated and verified. Chloride 94(L) 97 - 110 mmol/L [facility] CO2 30 22 - 32 mmol/L [facility] Anion gap <1(L) 2 - 15 mmol/L [facility] Comment:Reviewed. BUN 14 6 - 25 mg/dL [facility] Creatinine 1.15 0.80 - 1.30 mg/dL [facility] Glucose 131 70 - 199 mg/dL [facility] Comment: Interpretive Data Fasting glucose >/= 126 [...] Calcium 8.0(L) 8.5 - 10.3 mg/dL [facility] Bilirubin, total 1.5(H) 0.1 - 1.2 mg/dL [facility] Protein, pl 6.7 6.5 - 8.5 g/dL [facility] Albumin 3.6 3.5 - 5.0 g/dL [facility] Alk phos 133(H) 40 - 130 Units/L [facility] ALT 30 7 - 55 Units/L [facility] AST 253(H) 10 - 50 Units/L [facility] Comment:Hemolyzed; result ma y be falsely elevated Blood 05/12/2025 2:03 AM CDT 05/12/2025 2:21 AM CDT us Fab Eden ACCOUNT STRATEGIST LAB BLOOD ORDERABLES Final R esult [facility] [place] [address] * Surgical pathology (05/12/2025 1:49 AM CDT) Peripheral Blood For Pathologist Review 05/12/2025 1:49 AM CDT 05/12/2025 8:07 AM CDT Narrative 05/14/2025 5:56 PM CDT EPIC results best viewed via link to PDF [facility] [place] [address] Note to Patients: This report may contain [...] Gender: M : 1965 (Age: 60) Address: [address] [place] [address] Hospital #: [id number] Taken:05/12/2025 Received:05/12/2025 Reported: 05/14/2025 Patient Type: [facility] Inpatient Service: Medical Location: [place] [address] Physician(s): COOPER Arias Diagnosis: Peripheral blood for [...] CD3, CD16, CD64, CD14, CD15, TdT, cyCD3, jfWQ99y, cyCD22, CD1 CD3+ T cells have no significant loss of hardwick T cell antigens and an inverted CD4:CD8 ratio of 42 to 53. Flow cytometry shows no significant CD19+ B-cell population. Too few B-cells are present for meaningful clonality analysis. Flow cytometry was performed using antibodies to the following cellular antigens: CD45, CD34, CD19, CD20, Brooks, Lambda, CD10, CD5, CD200, CD38, CD2, CD3, [...] Surgical Pathology and Flow Cytometry Departments at [facility] as part of an ongoing vendor quality supervisor program and in compliance with federally mandated [...] Surgical Pathology and Flow Cytometry Departments of [facility]. It has not been cleared or approved by the U. S. Food and Drug Administration. IMAGES AND SCANNED DOCUMENTS, IF INCLUDED, ONLY VIEWABLE IN PDF VERSION OF REPORT Fab Eden NP LAB PATHOLOGY ORDERABLES Fin al Result * ECG 12 lead (05/12/2025 1:44 AM CDT) Ventricular Rate EKG/Min 96 BPM [facility] Atrial Rate [address] [facility] WI-Interval (MSEC) [address] [facility] QRS-Interval (MSEC) [address] [facility] QT-Interval (MSEC) [address] [facility] QTc [address] [facility] P [place] [address] [facility] R [place] [address] [facility] T [place] -[address] [facility] Diagnosis Normal sinus rhythm Cannot rule out Anterior infarct , age undetermined Abnormal ECG No previous ECGs available Confirmed by HEATH CROFT M.D ([id number]) on 05/12/2025 10:26:22 AM [facility] 05/12/2025 1:44 AM CDT 05/12/2025 10:26 AM CDT Fab Eden ACCOUNT STRATEGIST ECG ORDERABLES Final Result [facility] from Last 3 Months Insurance MEDICARE MEDICARE MEDICARE Advance Directives For more information, please contact: [phone] * Full Code (Latest Code Status on [...] Nuno Spouse Health Care Agent Care Teams High Speed Printer Operator Relationship Specialty Start Date End Date Nohelia Duval NP [address] [place] [address] PCP - General Nurse Practitioner 05/12/25 Tania Lott MD PhD [address] [facility] [address] IM [employer], , [place] [address] Medical Oncologist/Supervisor Detasseling Crew Medical Oncology 05/27/25
--- OUTSIDE RECORDS SUMMARY | 2025-06-11 11:30 | XMS_ITS | Clinical Summary ---
Author Organization [facility] Address [address] [place] [address] Care Team Providers Care Metal Solderer Name Role Phone Purnima Valle Primary Care Provider [phone] Teodora Dukes MD Unavailable Mark Yoon MD Unavailable [phone] Paige Marr PA-C Unavailable [phone] Allergies Active Allergy Reactions Criticality Noted [...] mg total) by mouth nightly at bedtime. 04/01/2023 Active busPIRone (BUSPAR) 10 MG tablet Take 1 tablet (10 mg total) by mouth daily. 04/01/2023 Active clopidogrel (PLAVIX) 75 MG tablet Take 1 tablet (75 mg total) by mouth daily. 03/31/2023 Active FLUoxetine (PROZAC) 40 MG capsule Take 1 capsule (40 mg total) by mouth daily. 04/01/2023 Active traZODone (DESYREL) 100 MG tablet Take 1 tablet (100 mg total) by mouth nightly at bedtime. 03/31/2023 Active ADVAIR HFA 230-21 MCG/ACT inhaler Inhale 2 puffs into the lungs 2 (two) times daily. 11/26/2022 Active naloxone (NARCAN) 4 MG/0.1ML nasal spray 1 spray by Nasal route as needed. 04/03/2023 Active ARIPiprazole (ABILIFY) 5 MG tablet Take 1 tablet (5 mg total) by mouth daily. Active tamsulosin (FLOMAX) 0.4 MG Cap Take 1 capsule (0.4 mg total) by mouth daily. Active amLODIPine (NORVASC) 10 MG tablet Take 1 tablet (10 mg total) by mouth daily. 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 Assessment & Plan (05/30/2023 9:09 AM CDT): LEFT 3rd finger excised on 05-09-2023 Chronotropic incompetence with sinus node dysfun ction 05/03/2021 Symptomatic bradycardia 05/03/2021 Seizure disorder ([facility]) 09/27/2020 History of embolic stroke 05/03/2020 Hyperlipidemia LDL goal <70 05/03/2020 Fatigue, unspecified type 05/03/2020 Acute embolic stroke ([facility]) 0 Resolved Problems Problem Noted Date Diagnosed Date Resolved Date Mass of finger of left hand 04/25/2023 05/30/2023 Overview (04/25/2023): Added automatically from request for surgery [id number] Encounters Date Type Department Care Team Description 03/29/2025 Telephone [facility]endor [facility] [address] [place] [address] Teodora Dukes MD Medication 03/18/2025 [facility] [address] [place] [address] Mark Yoon MD Information 03/17/2025 8:15 AM CDT Allied Health/Nurse Visit [facility] [address] [place] [address] Mark Yoon MD In Clinic Device Check 03/17/2025 8:15 AM CDT Office Visit [facility] [place] [address] [place] [address] Mark Yoon MD Consult 03/17/2025 8:00 AM CDT - 03/17/2025 11:59 PM CDT Hospital Encounter [facility] [address] [place], [place] [address] [address] Mark Yoon MD Discharge Disposition: Home or Self Care (Routine Discharge) 03/17/2025 Travel 03/16/2025 Telephone [facility] [place] [address] [place] [address] Mark Yoon MD Appointment Reminder 03/15/2025 Orders Only [facility] [place] [address] [place] [address] Mark Yoon MD from Last 3 Months [...] than three times a week 04/06/2020 Attends Yazdanism Services Never 04/06 Active Member of Clubs [...] move on to questions 3-9 0 09/27/2020 [facility] of Occupat ional Health - Occupational Stress [...] PM CDT Legal Sex Male 6:00 PM OWNER/OPERATOR Gender Identity Male 04/06/2020 1:53 PM CDT [...] Description 07/07/2025 10:30 AM CDT Office Visit [facility] [place] [address] [place] [address] Teodora Dukes MD [address] [place] [address] 08/31/2025 3:30 AM OWNER/OPERATOR Allied Health/Nurse Visit [facility] [address] [place] [address] Mark Yoon MD [address] [place] [address] 03/16/2026 9:00 AM CDT Office Visit [facility] [place] [address] [place] [address] Paige Marr PA-C [address] [place] [address] 03/16/2026 9:00 AM CDT Allied Health/Nurse Visit [facility] [place] [address] [place] [address] Mark Yoon MD [address] [place] [address] Health Maintenance Due Date Last Done Comments [...] this topic Medical Devices Implanted Type Area White Washer Piler Device Identifier Shelf Expiration Date Model / Serial / Lot Medtronic-Linq Ii Implantable Loop Recorder-2019 Implanted:Qty: 1 on 08/08/2020 by Mike Doherty MD Explanted:04/07 by Arpit Dooley MD (Quantity not on file) Implantable Loop Recorder Chest Wall [employer] 12/04/2021 [id number] / [id number] / Medtronic Capsurefix Novus Mri Ra Lead-05/03/2021 Implanted:04/07 by Arpit Dooley MD (Quantity not on file) Lead Implant [employer] CARDIAC RHYTHM AND HEART FAILURE - DIV M 02/13/2023 4076-52 / [id number] / Medtronic Capsurefix Novus Mri Rv Lead-05/03/2021 Implanted:04/07 by Arpit Dooley MD (Quantity not on file) Lead Implant [employer] CORONARY AND STRUCTURAL HEART - DIV MEDT 01/10/2023 4076-58 / [id number] / Medtronic [place] Xt Dr Mri Ppm-05/03/2021 Implanted:04/07 by rApit Dooley MD (Quantity not on file) Pacemaker [employer] CARDIAC RHYTHM AND HEART FAILURE - DIV M 10/03/2022 [id number] / [id number] / Description:MRI Conditional under following conditions: [...] HHS/HCC) LIPID PANEL Routine 10/07/2023 7:06 AM OWNER/OPERATOR Fatigue Hyperlipidemia HEMOGLOBIN, GLYCOSYLATED Routine 04/06/2020 1:30 PM CDT from Last 3 Months or Most Recently Relevant to Health Maintenance Results * ECG 12 lead (HOSPITAL PERFORMED ONLY) (03/17/2025 8:17 AM CDT) 03/17/2025 8:17 AM CDT Narrative [facility] - 03/18/2025 6:02 AM CDT [address] [place] [address] Test Date: 2025-03-17 Pat Name: TAMMY PEREZ Department: 3 Room: Gender: Male Resident Programs Assistant: : 1965 Requested By: MARK YOON Order Number: [id number] [place] MD: Mark Yoon Measurements Intervals [place] Rate: 70 P: 65 [place]: 191 QRS: 48 QRSD: 98 T: 6 QT: 335 QTc: 361 Interpretive Statements SINUS RHYTHM NONSPECIFIC T-WAVE ABNORMALITY Procedure Note Mark Yoon MD - 03/18/[address] [place] [address] Test Date: 2025-03-17 Pat Name: TAMMY PEREZ Department: 3 Room: Gender: Male Resident Programs Assistant: : 1965 Requested By: MARK YOON Order Number: [id number] Reading MD: Mark Yoon Measurements Intervals [place] Rate: 70 P: 65 [place]: 191 QRS: 48 QRSD: 98 T: 6 QT: 335 QTc: 361 Interpretive Statements SINUS RHYTHM NONSPECIFIC T-WAVE ABNORMALITY us Mark Yoon MD ECG ORDERABLES Final Res ult [facility] * (ABNORMAL) LIPID PANEL (10/07/2023 7:06 AM OWNER/OPERATOR) CHOLESTEROL 143 MG/DL 10/07/2023 11:08 AM [facility] Comment:DESIRABLE: <200 TRIGLYCERIDES 160 MG/DL 10/07/2023 11:08 AM [facility] Comment:150-199 BORDERLINE H I[facility] HDL 36(L) >39 MG/DL 10/07/2023 11:08 AM [facility] LDL-C 75 MG/DL 10/07/2023 11:08 AM [facility] Comment:<100 OPTIMAL VLDL CALCULATION 32 MG/DL 10/07/19 11:08 AM [facility] Comment:REFERENCE RANGE NOT ESTABLISHED CHOL/HDL RATIO 4.0 10/07/2023 11:08 AM [facility] Comment:REFERENCE RANGE NOT ESTABLISHED LDL/HDL 2.1 10/07/2023 11:08 AM [facility] Comment:REFERENCE RANGE NOT ESTABLISHED NON HDL CHOLESTEROL 107 MG/DL 10/07/2023 11:08 AM OWNER/OPERATOR [facility] Comment:REFERENCE RANGE NOT ESTABLISHED 10/07/2023 7:06 AM OWNER/OPERATOR Mj Hughes MD LABORATORY Final Result Performing Organization Address [facility] Co de Phone Number [facility] [address] [place] [address], [place] [phone] * (ABNORMAL) HEMOGLOBIN, GLYCATED (04/06/2020 1:30 PM CDT) HGB A1C 5.9(H) <5.7 % 04/06/2020 9:46 PM CDT [facility] ESTIMATED AVG GLUCOSE 123(H) 74 - 114 MG/DL 04/06/2020 9:46 PM CDT [facility] 04/06/2020 1:30 PM CDT Marty Davey MD LABORATORY Final Result Performing Organization Address [facility] de Phone Number [facility] [address] [place] [address], [place] [phone] from Last 3 Months or Most Recently Relevant to Health Maintenance Insurance MEDICARE Advance Directives Documents on File Type Date Recorded Patient Outside Plant Technician Expl anation Advance Directives and Living Will 04/06/2020 6:20 AM SURROGATE DECISION MAKER 04/06/2020 * Full Code (Latest Code Status on File) Date Activated Date Inactivated Comments 05/03/2021 5:54 PM 05/04/2021 11:04 AM * Full Code Date Activated Date Inactivated Comments 04/06/2020 1:06 PM 04/11/2020 3:50 PM Care Teams Metal Solderer Relationship Specialty Start Date End Date Purnima Valle PA [address] [place] [address] PCP - General PHYSICIAN BIT AND SHANK DEPARTMENT SUPERVISOR 04/24/23 Teodora Dukes MD [address] [place] [address] Woodruff Basting Puller CARDIOVASCULAR DISEASE 12/02/24 Mark Yoon MD [address] [place], [place] [address] Consulting Physician CLINICAL CARDIAC ELECTROPHYSIOLOGY 02/15/25 Paige Marr PA-C [address] [place] [address] Referring Physician PHYSICIAN BIT AND SHANK DEPARTMENT SUPERVISOR 03/14/25
--- OUTSIDE RECORDS SUMMARY | 2025-06-11 11:30 | XMS_ITS ---
Author Organization [facility] Address [address] [place] [address] Care Team Providers Care Surgical Aides Teacher Name Role Phone Nohelia Duval NP Primary Care Provider [phone] Munir Lott MD PhD Unavailable [phone] Active Problems Patient Care Coordination No te Formatting of this note is d ifferent from the original. [facility] Inpatient Care Coordination Diagnosis New AML - [...] give their info Discharge Disposition []SNF/Rehab: [][facility] [place] [x]Home [facility] [address] - distance from [facility]- 57min Caregiver: Requests Sent to []Case Management: [...] Other pending items: 05/28/25- Left VM at [facility] in [place], [place] asking for CB about supportive care [...] tortuous vessels in the right eye and nqbu-qs-babpazdr intra retinal hemorrhages in the left eye. [...] tortuous vessels in the right eye and bfxb-sq-ntkwvwxs intra retinal hemorrhages in the left eye. [...] tortuous vessels in the right eye and komz-sc-kxviugkr intra retinal hemorrhages in the left eye. [...] CD10, CD64, CD34, CD14, CD11b, CD15, CD19, Tull, Lambda, CD10, CD5, CD200, CD20, CD19, TCRgd, CD2, CD56, CD5, CD8, CD3, doJK63k, TdT, cyCD3, cyCD22, cyCD1 On myelomatch trial [...] CD10, CD64, CD34, CD14, CD11b, CD15, CD19, Tull, Lambda, CD10, CD5, CD200, CD20, CD19, TCRgd, CD2, CD56, CD5, CD8, CD3, tcQX52f, TdT, cyCD3, cyCD22, cyCD1 On myelomatch trial [...] CD10, CD64, CD34, CD14, CD11b, CD15, CD19, Tull, Lambda, CD10, CD5, CD200, CD20, CD19, TCRgd, CD2, CD56, CD5, CD8, CD3, zjIC93t, TdT, cyCD3, cyCD22, cyCD1 On myelomatch trial [...] 368 at OSH, Hgb 4.7. Transferred to [facility] for further work up -Continue hydroxyurea 2 [...] Hx of SSS s/p pacemaker placement. Medtronics [place] Xt 05/03/21. Model [id number]/[id number]. MRI conditional Assessment & Plan (05/11/2025 11:25 PM CDT): Placed dual chamber pacemaker for SSS 04/2021 after embolic stroke in 2019. Per records: Pulse Generator Medtronic [place] XT COPD (chronic obstructive pulmonary disease) 02/2025 [...] Therapy Plans - INPT/OUTPT - BMT - [id number] - Regimen 2 - Induction and Consolidation [...] for 06/20/2025) azaCITIDine (VIDAZA) IVPB in 50 [facility]V-[facility] gilteritinib (/[id number])INV-W [facility] venetoclax (/[id number]) No medications scheduled. No medications scheduled. Adult [...] Medications No medications scheduled. 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 Other Current Plans BMT Adult Blood and Platelet Administration for Inpatient* Plan Start Date: 05/14/2025 Plan Provider:Munir Ltot MD PhD Linked Problems Anemia, unspecified type [...]
--- OUTSIDE RECORDS SUMMARY | 2025-06-11 11:31 | XMS_ITS | Encounter Summary ---
Author Organization [facility] Address [facility] [place] [address] Care Team Providers Care Manufacturing Inspector Name Role Phone Paula Chopra NP Primary Care Provider [phone] Mike Doherty MD Unavailable [phone] Shari Ennis NP Unavailable [phone] Purnima Valle Primary Care Provider [phone] Teodora Dukes MD Unavailable Mark Yoon MD Unavailable [phone] Paige Marr PA-C Unavailable [phone] Encounter Details Date Type Department Care Team (Late st Contact Info) Description 09/14/2020 90 Day Stroke Follow-up Call [facility] Cartography Supervisor [address] [place] [address] Ailin Silver, RN Social History Tobacco Use [...] than three times a week 04/06/2020 Attends Orthodox Services Never 04/06 Active Member of Clubs or Organizations No 04/06/2020 Attends Club or Organization Meetings Never 04/06/2020 Marital Status 04/06/2020 Overall Financial Resource Strain (CARDIA) Answe r Date Recorded Difficulty of Paying Living Expenses Not hard at all 04/06/2020 [facility] of Occupat ional Health - Occupational [...] PM CDT Legal Sex Male 6:00 PM 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 Gender Identity Male 04/06/2020 1:53 PM CDT [...] Description 07/07/2025 10:30 AM CDT Office Visit [place] [place] [address] [place] [address] Teodora Dukes MD [address] [place] [address] 08/31/2025 3:30 AM SENIOR 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 ENGINEER Allied Health/Nurse Visit [facility] [address] [place] [address] Mark Yoon MD [address] [place] [address] 03/16/2026 9:00 AM CDT Office Visit [place] [address] [place] [address] Paige Marr PA-C [address] [place] [address] 03/16/2026 9:00 AM CDT Allied Health/Nurse Visit [place] [address] [place] [address] Mark Yoon MD [address] [place] [address] documented as of this encounter Visit Diagnoses Not on filedocumented in this encounter Additional Health Concerns Infection Onset Date Last Indicated Resolved Time COVID-19 Rule Out 05/03/2021 05/03/2021 05/03/2021 6:21 PM CDT documented as of this encounter Care Teams Manufacturing Inspector Relationship Specialty Start Date End Date Paula Chopra NP [address] [address] PCP - General Nurse Practitioner Family 04/07/20 3 Purnima Valle PA [address] [place] [id number] PCP - General PHYSICIAN LINUX SYSTEMS ADMINISTRATOR 04/24/23 Mike Doherty MD [address] [address] Consulting Physician CARDIOVASCULAR DISEASE 05/09/2102/14 Shari Ennis NP [address] [address] Nurse Practitioner Nurse Practitioner Family 05/09/2102/04 Teodora Dukes MD [address] [place] [address] D[place]on It Security Engineer CARDIOVASCULAR DISEASE 12/02/24 Mark Yoon MD [address] [place] [address] Consulting Physician CLINICAL CARDIAC ELECTROPHYSIOLOGY 02/15/25 Paige Marr PA-C [address] [place] [address] Referring Physician PHYSICIAN LINUX SYSTEMS ADMINISTRATOR 03/14/25 documented as of this encounter
--- OUTSIDE RECORDS SUMMARY | 2025-06-11 11:32 | XMS_ITS | Encounter Summary ---
Author Organization [facility] Address [address] [place] [address] Care Team Providers Care Medical Office Worker Name Role Phone Paula Chopra NP Primary Care Provider [phone] Mike Doherty MD Unavailable [phone] Shari Ennis NP Unavailable [phone] Purnima Valle Primary Care Provider [phone] Teodora Dukes MD Unavailable Mark Yoon MD Unavailable [phone] Paige Marr PA-C Unavailable + [phone] Encounter Details Date Type Department Care Team (Late st Contact Info) Description 05/04/2021 Hospital Follow-up Call [facility] Cardiovascular Care Unit [address] [place] [address] Chelle Candelaria RN Social History Tobacco Use [...] than three times a week 04/06/2020 Attends Nondenominational Services Never 04/06 Active Member of Clubs [...] move on to questions 3-9 0 09/27/2020 [facility] [place] of Occupat ional Health - Occupational Stress [...] PM CDT Legal 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 Gender Identity Male 04/06/2020 1:53 PM CDT [...] Description 07/07/2025 10:30 AM CDT Office Visit [facility] [place] [address] [place] [address] Teodora Dukes MD [address] [place] [address] 08/31/2025 3:30 AM GLEASON GEAR GENERATOR Allied Health/Nurse Visit [facility] [address] [place] [address] Mark Yoon MD [address] [place] [address] 03/16/2026 9:00 AM CDT Office Visit [facility] [place] [address] [place] [address] Paige Marr PA-C [address] [place] [address] 03/16/2026 9:00 AM CDT Allied Health/Nurse Visit [facility] [place] [address] Mark Yoon MD [address] [place], [place] [address] documented as of this encounter Visit Diagnoses Not on filedocumented in this encounter Care Teams Medical Office Worker Relationship Specialty Start Date End Date Paula Chopra NP [address] [place] [address] [place] [address] PCP - General Nurse Practitioner Family 04/07/20 3 Purnima Valle PA [address] [place] [address] PCP - General PHYSICIAN EMERGENCY MEDICAL TECH 04/24/23 Mike Doherty MD [address] [facility] [address] [place] [address] Consulting Physician CARDIOVASCULAR DISEASE 05/09/2102/14 Shari Ennis NP [address] [facility] [address] [place] [address] Nurse Practitioner Nurse Practitioner Family 05/09/2102/04 Teodora Dukes MD [address] [place] [address] [place] Social Insurance Adviser CARDIOVASCULAR DISEASE 12/02/24 Mark Yoon MD [address] [place], [place] [address] Consulting Physician CLINICAL CARDIAC ELECTROPHYSIOLOGY 02/15/25 Paige Marr PA-C [address] [place] [address] Referring Physician PHYSICIAN EMERGENCY MEDICAL TECH 03/14/25 documented as of this encounter
--- OUTSIDE RECORDS SUMMARY | 2025-06-11 11:32 | XMS_ITS | Encounter Summary ---
Author Organization [facility] Address [facility] [place] [address] Care Team Providers Care Parts Counter Salesperson Name Role Phone Paula Chopra NP Primary Care Provider [phone] Mike Doherty MD Unavailable [phone] Shari Ennis NP Unavailable [phone] Purnima Valle Primary Care Provider [phone] Teodora Dukes MD Unavailable Mark Yoon MD Unavailable [phone] Paige Marr PA-C Unavailable + [phone] Encounter Details Date Type Department Care Team (Late st Contact Info) Description 09/14/2020 90 Day Stroke Follow-up Call [facility] Wood Last Maker [address] [place] [address] Ailin Silver, RN Social History Tobacco Use [...] than three times a week 04/06/2020 Attends Buddhism Services Never 04/06 Active Member of Clubs or Organizations No 04/06/2020 Attends Club or Organization Meetings Never 04/06/2020 Marital Status 04/06/2020 Overall Financial Resource Strain (CARDIA) Answe r Date Recorded Difficulty of Paying Living Expenses Not hard at all 04/06/2020 [facility] of Occupat ional Health - Occupational [...] PM CDT 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 Gender Identity Male 04/06/2020 1:53 PM [...] Description 07/07/2025 10:30 AM CDT Office Visit [facility] [place] [address] [place] [address] Teodora Dukes MD [address] [place] [address] 08/31/2025 3:30 AM URBAN GARDENING SPECIALIST Allied Health/Nurse Visit [facility] [address] [place] [address] Mark Yoon MD [address] [place] [address] 03/16/2026 9:00 AM CDT Office Visit [place] [address] [place] [address] Paige Marr PA-C [address] [place] [address] 03/16/2026 9:00 AM CDT Allied Health/Nurse Visit [place] [address] [place] [address] Mark Yoon MD [address] [place] [address] documented as of this encounter Visit Diagnoses Not on filedocumented in this encounter Additional Health Concerns Infection Onset Date Last Indicated Resolved Time COVID-19 Rule Out 05/03/2021 05/03/2021 05/03/2021 6:21 PM CDT documented as of this encounter Care Teams Parts Counter Salesperson Relationship Specialty Start Date End Date Paula Chopra NP [address] [address] PCP - General Nurse Practitioner Family 04/07/20 3 Purnima Valle PA [address] [place] [phone] PCP - General PHYSICIAN TERMINATION CLERK 04/24/23 Mike Doherty MD [address] [address] Consulting Physician CARDIOVASCULAR DISEASE 05/09/2102/14 Shari Ennis NP [address] [address] Nurse Practitioner Nurse Practitioner Family 05/09/2102/04 Teodora Dukes MD [address] [place] [address] Spencer Drier Operator Head CARDIOVASCULAR DISEASE 12/02/24 Mark Yoon MD [address] [place] [address] Consulting Physician CLINICAL CARDIAC ELECTROPHYSIOLOGY 02/15/25 Paige Marr PA-C [address] [place] [address] Referring Physician PHYSICIAN TERMINATION CLERK 03/14/25 documented as of this encounter
--- NOTE | 2025-06-11 11:42 | PC.NURSE ---
RN attempted to obtain vitals, patient is on bedside commode attempting to have bowel movement.
--- NOTE | 2025-06-11 12:04 | PC.NURSE ---
Patient had large bowel movement, feels much better now.
[2025-06-11 12:48] VITALS: BP 91/57; PULSE 72; RESP 14; O2SAT 100
[2025-06-11 13:36] VITALS: BP 91/57; PULSE 72; RESP 14; TEMP 36.5; O2SAT 100
== END 2025-06-11 13:36 | disposition home or self-care (01) ==
PROVIDERS: Emergency Provider Emergency Medicine; PCP Nurse Practitioner Family
DX: K56.41 Fecal impaction (principal); J44.9 Chronic obstructive pulmonary disease, unspecified; F17.200 Nicotine dependence, unspecified, uncomplicated
CPT/HCPCS: 74019; 96372; 99283; J2212